=== PATIENT | female | born 1960 | race Caucasian/White ===

== ENCOUNTER 2017-09-28 14:48 | Emergency (ER) | payer MEDICARE, OTHER ==
[2017-09-28 14:57] VITALS: PULSE 70
--- NOTE | 2017-09-28 15:10 | ED ---
Extremity Problem HPI - General Chief complaint: Extremity Problem,Nontraumatic Stated complaint: Lt leg pain Time Seen by Provider: 09/28/17 14:58 Source: patient, RN notes reviewed Mode of arrival: wheelchair Limitations: no limitations - History of Present Illness Initial comments: 56-year-old female presents emergency Department from [place] for evaluation of her left leg wounds and possible cellulitis. Patient states that she has chronic lower extremity swelling bilaterally secondary CHF. Patient states she takes Lasix 40 mg. Patient states she has not have any worsening swelling denies any leg pain. Patient states that she noticed on Wednesday and Wednesday she had some wounds open up on her left lower leg which have now crusted over and stopped draining. She states her was some drainage of clear liquid. Patient denies fever, chills. Patient is a diabetic. - Related Data Home Medications Medication Instructions Recorded Confirmed Amiodarone [Cordarone] 200 mg PO BID 09/28/17 09/28/17 Aspirin EC [Ecotrin Low Dose] 81 mg PO DAILY 09/28/17 09/28/17 Atorvastatin [Lipitor] 40 mg PO HS 09/28/17 09/28/17 Carvedilol [Coreg] 3.125 mg PO BID 09/28/17 09/28/17 Clopidogrel [Plavix] 75 mg PO DAILY 09/28/17 09/28/17 Enalapril [Vasotec] 20 mg PO DAILY 09/28/17 09/28/17 Furosemide [Lasix] 20 mg PO DAILY 09/28/17 09/28/17 Gabapentin [Neurontin] 300 mg PO HS 09/28/17 09/28/17 Pantoprazole Sodium [Protonix] 40 mg PO BID 09/28/17 09/28/17 Previous Rx's Medication Instructions Recorded Cephalexin [Keflex] 500 mg PO Q6HR #40 cap 09/28/17 Allergies Allergy/AdvReac Type Severity Reaction Status Date / Time No Known Allergies Allergy Verified 09/28/17 15:06 Review of Systems ROS Statement: Those systems with pertinent positive or pertinent negative responses have been documented in the HPI. ROS Other: All systems not noted in ROS Statement are negative. Past Medical History Past Medical History: Diabetes Mellitus, Hypertension Additional Past Medical History / Comment(s): neuropathy History of Any Multi-Drug Resistant Organisms: None Reported Past Surgical History: Section, Coronary Bypass/CABG Past Psychological History: Depression Smoking Status: Never smoker Past Alcohol Use History: None Reported Past Drug Use History: None Reported General Exam Limitations: no limitations General appearance: alert, in no apparent distress Head exam: Present: atraumatic, normocephalic, normal inspection Respiratory exam: Present: normal lung sounds bilaterally. Absent: respiratory distress, wheezes, rales, rhonchi, stridor Cardiovascular Exam: Present: regular rate, normal rhythm, normal heart sounds. Absent: systolic murmur, diastolic murmur, rubs, gallop, clicks Extremities exam: Present: other (Bilateral lower extremity there is plus pedal edema noted, pedal pulses equal bilaterally there is some discoloration of bilateral lower extremities and feet patient states is chronic. There are 3 open sores noted on the left anterior lower leg with no active drainage there is mild erythema but no warmth with palpation there is no calf tenderness) Skin exam: Present: warm, dry, intact Course Vital Signs 09/28/17 14:53 Temperature 97.2 F L Pulse Rate 70 Respiratory 18 Rate Blood Pressure 132/58 O2 Sat by Pulse 96 Oximetry Medical Decision Making - Medical Decision Making 56-year-old female presented emergency Department chief complaint of left leg wound, infection. Patient has normal white count there is no major signs of cellulitis. Patient will be started on antibiotics for open wound she is diabetic. She will need follow-up within 48 hours for recheck. Patient does have mild hyperglycemia though she states she did not take any of her insulin since this morning. Patient states she normally would take 6 units for her current blood glucose. Patient we given her insulin last recheck in one hour. She'll be discharged with return parameters - Lab Data Result diagrams: 09/28/17 16:13 09/28/17 16:13 Lab Results 09/28/17 09/28/17 09/28/17 Range/Units 16:13 16:13 16:13 WBC 8.0 (3.8-10.6) k/uL RBC 3.54 L (3.80-5.40) m/uL Hgb 10.1 L (11.4-16.0) gm/dL Hct 33.6 L (34.0-46.0) % MCV 95.0 (80.0-100.0) fL MCH 28.6 (25.0-35.0) pg MCHC 30.1 L (31.0-37.0) g/dL RDW 16.2 H (11.5-15.5) % Plt Count 247 (150-450) k/uL Neutrophils % 77 % Lymphocytes % 13 % Monocytes % 5 % Eosinophils % 3 % Basophils % 1 % Neutrophils # 6.2 (1.3-7.7) k/uL Lymphocytes # 1.0 (1.0-4.8) k/uL Monocytes # 0.4 (0-1.0) k/uL Eosinophils # 0.2 (0-0.7) k/uL Basophils # 0.1 (0-0.2) k/uL Hypochromasia Moderate Anisocytosis Slight Sodium 137 (137-145) mmol/L Potassium 4.6 (3.5-5.1) mmol/L Chloride 100 (98-107) mmol/L Carbon Dioxide 28 (22-30) mmol/L Anion Gap 9 mmol/L BUN 49 H (7-17) mg/dL Creatinine 1.70 H (0.52-1.04) mg/dL Est GFR (MDRD) Af Amer 38 (>60 ml/min/1.73 sqM) Est GFR (MDRD) Non-Af 31 (>60 ml/min/1.73 sqM) Glucose 385 H (74-99) mg/dL Calcium 8.8 (8.4-10.2) mg/dL NT-Pro-B Natriuret Pep 1520 pg/mL Disposition Clinical Impression: Leg wound, left, Left leg cellulitis Disposition: HOME SELF-CARE Condition: Stable Instructions: Cellulitis (ED) Additional Instructions: Please return to the Emergency Department if symptoms worsen or any other concerns. Prescriptions: Cephalexin [Keflex] 500 mg PO Q6HR #40 cap Referrals: Yoni Rollins MD [Primary Care Provider] - 1-2 days Time of Disposition: 17:01
--- NOTE | 2017-09-28 16:02 | XR ---
EXAMINATION TYPE: XR tibia fibula LT DATE OF EXAM: 09/28/2017 COMPARISON: NONE HISTORY: Wound lower extremity TECHNIQUE: Two views are submitted. FINDINGS: The osseous structures are intact. There is severe arthropathy involving the knee joint. Soft tissue edema noted. Diffuse osteopenia is seen. Calcaneal spur noted. IMPRESSION: 1. No acute osseous abnormality.
[2017-09-28 16:34] LABS: Anisocytosis Slight; Basophils # (A) 0.1 k/uL (0-0.2); Basophils % (A) 1 %; CH 29.1; CHCM 30.8; Eosinophils # (A) 0.2 k/uL (0-0.7); Eosinophils % (A) 3 %; HCT 33.6 % (34.0-46.0); HGB 10.1 gm/dL (11.4-16.0); Hypochromasia Moderate; Luc # (Auto) 0.07; Luc % (Auto) 1; Lymphocytes % (A) 13 %; MCH 28.6 pg (25.0-35.0); MCHC 30.1 g/dL (31.0-37.0); Mean Platelet Volume 7.7; Monocytes # (A) 0.4 k/uL (0-1.0); Monocytes % (A) 5 %; Neutrophils # (A) 6.2 k/uL (1.3-7.7); Neutrophils % (A) 77 %; RBC 3.54 m/uL (3.80-5.40); RDW 16.2 % (11.5-15.5); WBC (Perox) 8.84
[2017-09-28 16:41] LABS: Calcium 8.8 mg/dL (8.4-10.2); Potassium 4.6 mmol/L (3.5-5.1)
[2017-09-28] MEDS ORDERED: CEPHALEXIN 500 MG CAP PO STA (16:58)
[2017-09-28] MEDS ORDERED: INSULIN ASPART 100 UNIT/ML 1 ML 10 ML VIAL SQ ONE (16:58)
[2017-09-28 17:40] VITALS: BP 132/56; RESP 20; TEMP 97.3
== END 2017-09-28 17:20 | disposition home or self-care (01) ==
LOC: EC 14:48
DX: S81.802A Unspecified open wound, left lower leg, initial encounter (principal); L03.116 Cellulitis of left lower limb; E11.65 Type 2 diabetes mellitus with hyperglycemia; F32.9 Major depressive disorder, single episode, unspecified; I11.0 Hypertensive heart disease with heart failure; I50.9 Heart failure, unspecified; Z79.02 Long term (current) use of antithrombotics/antiplatelets; Z79.82 Long term (current) use of aspirin; Z79.899 Other long term (current) drug therapy
CPT/HCPCS: 36415; 80048; 83880; 85025; 99283

== ENCOUNTER 2018-02-18 16:52 | Inpatient (IN) | payer MEDICARE, OTHER ==
[2018-02-18] MEDS ORDERED: VANCOMYCIN IV PER PHARMACY 1 EACH MISC MISCELLANE PRN (17:21)
--- NOTE | 2018-02-18 17:21 | ED ---
General Adult HPI - General Chief complaint: Extremity Problem,Nontraumatic Stated complaint: Lt leg swollen Time Seen by Provider: 02/18/18 17:00 Source: patient, EMS, RN notes reviewed Mode of arrival: EMS Limitations: no limitations - History of Present Illness Initial comments: Patient 57-year-old female presenting to the emergency room today with a chief complaint of increased redness and swelling to left lower extremity. She does admit to a history of cellulitis. States she's been treated for both right and left lower extremities. She does admit this been increased swelling some redness. She states her home nurse came out to the house today and advised come here to the emergency room to be admitted for IV antibiotics. Patient states she is currently not on any antibiotics at this time most recently finished up antibiotics approximately 10 days ago. This to pain to the area. Denies any other complaints or symptoms. Patient denies any recent fever, chills , shortness of breath, chest pain, back pain, abdominal pain, nausea or vomiting , numbness or tingling, dysuria or hematuria, constipation or diarrhea, headaches or visual changes, or any other complaints. - Related Data Home Medications Medication Instructions Recorded Confirmed Aspirin EC [Ecotrin Low Dose] 81 mg PO DAILY 09/28/17 02/18/18 Clopidogrel [Plavix] 75 mg PO DAILY 09/28/17 02/18/18 Gabapentin [Neurontin] 300 mg PO TID 09/28/17 02/18/18 Albuterol Sulfate [Proair Hfa] 2 puff INHALATION RT-QID 02/18/18 02/18/18 Amiodarone [Cordarone] 400 mg PO DAILY 02/18/18 02/18/18 Atorvastatin [Lipitor] 20 mg PO HS 02/18/18 02/18/18 Carvedilol [Coreg] 6.25 mg PO BID 02/18/18 02/18/18 Enalapril [Vasotec] 10 mg PO DAILY 02/18/18 02/18/18 Ferrous Sulfate [Feosol] 325 mg PO BID 02/18/18 02/18/18 Furosemide [Lasix] 20 mg PO QAM 02/18/18 02/18/18 Insulin Aspart [NovoLOG Flexpen] 10 units SQ TID 02/18/18 02/18/18 Insulin Detemir [Levemir Flextouch] 40 units SQ HS 02/18/18 02/18/18 traMADol HCL [Ultram] 50 mg PO TID 02/18/18 02/18/18 Allergies Allergy/AdvReac Type Severity Reaction Status Date / Time No Known Allergies Allergy Verified 02/18/18 17:16 Review of Systems ROS Statement: Those systems with pertinent positive or pertinent negative responses have been documented in the HPI. ROS Other: All systems not noted in ROS Statement are negative. Past Medical History Past Medical History: Diabetes Mellitus, GERD/Reflux, Hyperlipidemia, Hypertension, Myocardial Infarction (NM), Rheumatoid Arthritis (RA) Additional Past Medical History / Comment(s): neuropathy,edentulous, cellulitis lt leg,cataracats, past uterine cysts, "gallstones", chronic back pain.. "i've had a gaby for this past year on shoulders,bra line and lt leg". Last Myocardial Infarction Date:: 2014 History of Any Multi-Drug Resistant Organisms: ESBL Date of last positivie culture/infection: 10/13/17 MDRO Source:: ESBL URINE Past Surgical History: Appendectomy, Section, Coronary Bypass/CABG Additional Past Surgical History / Comment(s): d&c,, x2, 2 vessel cabg ,?uterine ablation Past Anesthesia/Blood Transfusion Reactions: No Reported Reaction Additional Past Anesthesia/Blood Transfusion Reaction / Comment(s): clausterphobia Past Psychological History: Depression Smoking Status: Former smoker Past Alcohol Use History: None Reported Past Drug Use History: None Reported - Past Family History Mother Additional Family Medical History / Comment(s): anuerysm Father Family Medical History: Myocardial Infarction (NM) Sister(s) Additional Family Medical History / Comment(s): one sister had "hole in her heart" and a kidney transplant and another sister had ms. General Exam - General Exam Comments Initial Comments: General: The patient is awake and alert, in no distress, and does not appear acutely ill. Eye: Pupils are equal, round and reactive to light, extra-ocular movements are intact. No nystagmus. There is normal conjunctiva bilaterally. No signs of icterus. Ears, nose, mouth and throat: There are moist mucous membranes and no oral lesions. Neck: The neck is supple, there is no tenderness or JVD. Cardiovascular: There is a regular rate and rhythm. No murmur, rub or gallop is appreciated. Respiratory: Lungs are clear to auscultation, respirations are non-labored, breath sounds are equal. No wheezes, stridor, rales, or rhonchi. Musculoskeletal: Normal ROM, no tenderness. Strength 5/5. Sensation intact. Pulses equal bilaterally 2+. Neurological: A&O x 3. CN II-XII intact, There are no obvious motor or sensory deficits. Coordination appears grossly intact. Speech is normal. Skin: Redness or erythema to the lower extremities. Increased swelling to the left lower extremity with 2+ pitting. Psychiatric: Cooperative, appropriate mood & affect, normal judgment. Limitations: no limitations Course Vital Signs 02/18/18 16:55 Temperature 96.8 F L Pulse Rate 55 L Respiratory 18 Rate Blood Pressure 150/68 O2 Sat by Pulse 96 Oximetry Medical Decision Making - Medical Decision Making Patient reexamined at the Center no signs of distress. Patient does have increased redness swelling to the left lower extremity. She does admit that the swelling or redness is increased over the last few days. Currently not on any antibiotic. Patient's does have some pitting edema. Patient does takes Lasix 20 mg daily. His x-rays negative. Ultrasound negative for any evidence of DVT. Patient's BNP greater than 2000. Patient has been sent to the emergency room for admission for cellulitis. Started on vancomycin. Patient's labs reviewed shows kidney function is chronic. Patient will be admitted to the hospital to antibiotics. - Lab Data Result diagrams: 02/18/18 17:10 02/18/18 17:10 Lab Results 02/18/18 02/18/18 02/18/18 Range/Units 17:10 17:10 17:10 WBC 7.2 (3.8-10.6) k/uL RBC 3.51 L (3.80-5.40) m/uL Hgb 9.7 L (11.4-16.0) gm/dL Hct 30.9 L (34.0-46.0) % MCV 88.2 (80.0-100.0) fL MCH 27.7 (25.0-35.0) pg MCHC 31.4 (31.0-37.0) g/dL RDW 17.6 H (11.5-15.5) % Plt Count 217 (150-450) k/uL Neutrophils % 74 % Lymphocytes % 15 % Monocytes % 6 % Eosinophils % 4 % Basophils % 1 % Neutrophils # 5.3 (1.3-7.7) k/uL Lymphocytes # 1.0 (1.0-4.8) k/uL Monocytes # 0.4 (0-1.0) k/uL Eosinophils # 0.3 (0-0.7) k/uL Basophils # 0.0 (0-0.2) k/uL Hypochromasia Slight Anisocytosis Slight Sodium 145 (137-145) mmol/L Potassium 4.6 (3.5-5.1) mmol/L Chloride 105 (98-107) mmol/L Carbon Dioxide 26 (22-30) mmol/L Anion Gap 14 mmol/L BUN 61 H (7-17) mg/dL Creatinine 1.77 H (0.52-1.04) mg/dL Est GFR (CKD-EPI)AfAm 36 (>60 ml/min/1.73 sqM) Est GFR (CKD-EPI)NonAf 31 (>60 ml/min/1.73 sqM) Glucose 66 L (74-99) mg/dL Calcium 8.9 (8.4-10.2) mg/dL Total Bilirubin 0.5 (0.2-1.3) mg/dL AST 25 (14-36) U/L ALT 36 (9-52) U/L Alkaline Phosphatase 89 (38-126) U/L NT-Pro-B Natriuret Pep 2380 pg/mL Total Protein 6.7 (6.3-8.2) g/dL Albumin 3.9 (3.5-5.0) g/dL Disposition Clinical Impression: Cellulitis Disposition: ADMITTED IP TO THIS HOSP Condition: Stable Is patient prescribed a controlled substance at d/c from ED?: No Referrals: Arnol Santiago MD [Primary Care Provider] - 1-2 days Time of Disposition: 19:15
[2018-02-18 17:26] LABS: Anisocytosis Slight; Basophils % (A) 1 %; Eosinophils # (A) 0.3 k/uL (0-0.7); Eosinophils % (A) 4 %; HCT 30.9 % (34.0-46.0); HGB 9.7 gm/dL (11.4-16.0); Hypochromasia Slight; Lymphocytes % (A) 15 %; MCH 27.7 pg (25.0-35.0); MCHC 31.4 g/dL (31.0-37.0); MCV 88.2 fL (80.0-100.0); Mean Platelet Volume 7.1; Monocytes # (A) 0.4 k/uL (0-1.0); Monocytes % (A) 6 %; Neutrophils # (A) 5.3 k/uL (1.3-7.7); Neutrophils % (A) 74 %; Platelet Count 217 k/uL (150-450); RBC 3.51 m/uL (3.80-5.40); RDW 17.6 % (11.5-15.5); WBC 7.2 k/uL (3.8-10.6)
[2018-02-18 17:39] LABS: Albumin 3.9 g/dL (3.5-5.0); Calcium 8.9 mg/dL (8.4-10.2); Potassium 4.6 mmol/L (3.5-5.1); Total Bilirubin 0.5 mg/dL (0.2-1.3); Total Protein 6.7 g/dL (6.3-8.2)
[2018-02-18] MEDS ORDERED: VANCOMYCIN 2,500 MG in SODIUM CHLORIDE 0.9% 500 ML IVPB ONE (18:00)
--- NOTE | 2018-02-18 18:06 | US ---
EXAMINATION TYPE: US venous doppler duplex LE LT DATE OF EXAM: 02/18/2018 5:52 PM COMPARISON: NONE CLINICAL HISTORY: Pain. Left leg swelling and skin redness to bilateral lower legs, Left > Right, x 1 day SIDE PERFORMED: Left; US exam is technically limited by large body of 300lbs, Ht5'4". TECHNIQUE: The lower extremity deep venous system is examined utilizing real time linear array sonog yaakov with graded compression, doppler sonography and color-flow sonography. VESSELS IMAGED: Common Femoral Vein Deep Femoral Vein Greater Saphenous Vein * Femoral Vein Popliteal Vein Small Saphenous Vein * Left Leg: Negative for DVT as able to assess large leg. IMPRESSION: No evidence of deep venous thrombosis in the left leg.
--- NOTE | 2018-02-18 18:50 | XR ---
EXAMINATION TYPE: XR chest 2V DATE OF EXAM: 02/18/2018 COMPARISON: October 11, 2017 HISTORY: Leg edema TECHNIQUE: Frontal and lateral views of the chest are obtained. FINDINGS: Heart appears enlarged. There are sternal wires. There is mild to moderate congestion. I s ee no pleural effusion. Bony thorax is intact. IMPRESSION: Cardiomegaly and mild pulmonary congestion. There is no overt heart failure. Pulmonary v ascularity is the same or improved compared to last exam.
[2018-02-18] MEDS ORDERED: ACETAMINOPHEN TAB 325 MG TAB PO PRN (19:16)
[2018-02-18] MEDS ORDERED: NALOXONE 0.4 MG/ML 1 ML VIAL IV PRN (19:16)
[2018-02-18] MEDS ORDERED: FUROSEMIDE 10 MG/ML 4 ML VIAL IV STA (19:19)
[2018-02-18 19:24] LABS: Appearance,Urine Clear (Clear); Bilirubin,Urine Negative (Negative); Blood,Urine Negative (Negative); Color,Urine Light Yellow; Glucose,Urine (UA) Negative (Negative); Ketones,Urine Negative (Negative); Leukocyte Esterase,Urine Negative (Negative); Nitrite,Urine Negative (Negative); Protein,Urine Negative (Negative); Specific Gravity,Urine 1.006 (1.001-1.035); Urobilinogen,Urine <2.0 mg/dL (<2.0)
[2018-02-18 19:31] LABS: Glucose,Whole Blood 57 mg/dL (75-99)
[2018-02-18 20:20] LABS: Glucose,Whole Blood 90 mg/dL (75-99)
[2018-02-18 21:27] LABS: Glucose,Whole Blood 114 mg/dL (75-99)
[2018-02-18] MEDS: INSULIN ASPART 100 UNIT/ML 1 ML 10 ML VIAL SQ SCH (21:29)
[2018-02-18] MEDS: ATORVASTATIN 20 MG TAB PO SCH (22:35)
[2018-02-18] MEDS: FERROUS SULFATE 325 MG TAB PO SCH (22:37)
[2018-02-18] MEDS: CARVEDILOL 6.25 MG TAB PO SCH (22:37)
[2018-02-18] MEDS: GABAPENTIN 300 MG CAP PO SCH (22:38)
[2018-02-18] MEDS: traMADol 50 MG TAB PO SCH (22:38)
[2018-02-18] MEDS: ALBUTEROL NEBULIZED 2.5 MG/3 ML INHALATION SCH (23:36)
[2018-02-19 01:53] LABS: Glucose,Whole Blood 194 mg/dL (75-99)
[2018-02-19] MEDS ORDERED: ALBUTEROL NEBULIZED 2.5 MG/3 ML INHALATION PRN (04:03)
[2018-02-19 06:51] LABS: Glucose,Whole Blood 170 mg/dL (75-99)
[2018-02-19] MEDS: FERROUS SULFATE 325 MG TAB PO SCH ×2 (07:53→20:47)
[2018-02-19] MEDS: CLOPIDOGREL 75 MG TAB PO SCH (07:53)
[2018-02-19] MEDS: CARVEDILOL 6.25 MG TAB PO SCH ×2 (07:53→17:18)
[2018-02-19] MEDS: traMADol 50 MG TAB PO SCH ×3 (07:53→20:44)
[2018-02-19] MEDS: INSULIN ASPART 100 UNIT/ML 1 ML 10 ML VIAL SQ SCH ×4 (07:53→20:45)
[2018-02-19] MEDS: GABAPENTIN 300 MG CAP PO SCH ×3 (07:53→23:11)
[2018-02-19] MEDS: ASPIRIN 81 MG PO SCH (07:53)
[2018-02-19] MEDS: LISINOPRIL 20 MG TAB PO SCH (07:54)
[2018-02-19] MEDS: ALBUTEROL NEBULIZED 2.5 MG/3 ML INHALATION SCH ×4 (08:03→20:14)
[2018-02-19 08:14] LABS: Anisocytosis Slight; Basophils % (A) 1 %; Eosinophils # (A) 0.2 k/uL (0-0.7); Eosinophils % (A) 4 %; HCT 29.9 % (34.0-46.0); HGB 8.9 gm/dL (11.4-16.0); Hypochromasia Marked; Lymphocytes # (A) 0.7 k/uL (1.0-4.8); Lymphocytes % (A) 11 %; MCHC 29.7 g/dL (31.0-37.0); MCV 91.1 fL (80.0-100.0); Mean Platelet Volume 8.5; Monocytes # (A) 0.4 k/uL (0-1.0); Monocytes % (A) 7 %; Neutrophils # (A) 4.8 k/uL (1.3-7.7); Neutrophils % (A) 77 %; Platelet Count 188 k/uL (150-450); RBC 3.28 m/uL (3.80-5.40); RDW 18.2 % (11.5-15.5); WBC 6.3 k/uL (3.8-10.6)
[2018-02-19 08:26] LABS: Albumin 3.6 g/dL (3.5-5.0); Calcium 8.6 mg/dL (8.4-10.2); Total Bilirubin 0.5 mg/dL (0.2-1.3); Total Protein 6.2 g/dL (6.3-8.2)
[2018-02-19] MEDS ORDERED: AMIODARONE 200 MG TAB PO SCH (09:00)
[2018-02-19 12:49] LABS: Glucose,Whole Blood 180 mg/dL (75-99)
[2018-02-19] MEDS ORDERED: MELATONIN 3 MG TABLET PO PRN (15:34)
[2018-02-19] MEDS ORDERED: CALCIUM CARBONATE 500 MG CHEWABLE PO PRN (15:34)
[2018-02-19] MEDS ORDERED: ALPRAZolam 0.25 MG TAB PO PRN (15:34)
[2018-02-19] MEDS ORDERED: ONDANSETRON 4 MG/2 ML VIAL IVP PRN (15:34)
[2018-02-19] MEDS ORDERED: VANCOMYCIN 2,250 MG in SODIUM CHLORIDE 0.9% 500 ML IVPB SCH (16:00)
[2018-02-19 16:43] LABS: Glucose,Whole Blood 179 mg/dL (75-99)
[2018-02-19] MEDS: CLINDAMYCIN 600 MG in DEXTROSE 5% IN WATER 50 ML IVPB SCH ×4 (17:14→23:11)
--- NOTE | 2018-02-19 18:07 | HP ---
HISTORY AND PHYSICAL DATE OF SERVICE: 02/19/2018 PRESENT COMPLAINT: Bilateral lower extremity redness. HISTORY OF PRESENTING COMPLAINT: This is a pleasant 57-year-old patient followed by visiting physician Dr. Santiago. Chronic stable medical conditions include congestive heart failure from diastolic dysfunction, diabetes, chronic kidney disease, GERD, hypertension, hyperlipidemia, rheumatoid arthritis, anxiety, peripheral neuropathy. The patient presents with worsening redness in both lower extremities, some breakdown of skin. There is edema, not much pain. Patient has numbness primarily in the left leg. The patient had veins transposed from the left lower extremity prior. Shortness of breath is more at the baseline. REVIEW OF SYSTEMS: CONSTITUTIONAL: Tired. HEENT: None. RESPIRATORY: None. CARDIOVASCULAR: None. GASTROINTESTINAL: Heartburn. GENITOURINARY: None. MUSCULOSKELETAL: Some pain in the joints. DERMATOLOGICAL: As above. HEMATOLOGICAL: None. LYMPHATICS: None. PSYCHIATRY: None. NEUROLOGICAL: Numbness in both the feet, more so on the left leg. PAST MEDICAL HISTORY: Congestive heart failure from diastolic dysfunction, diabetes, chronic kidney disease, GERD, hypertension, hyperlipidemia, rheumatoid arthritis, anxiety, peripheral neuropathy, depression, chronic back pain. PAST SURGICAL HISTORY: Appendectomy, , coronary artery bypass. PAST PSYCHIATRIC HISTORY: Depression. SOCIAL HISTORY: The patient lives at [facility], is a , uses a walker and wheelchair for longer distances. The patient smoked for 25 years, 3 packs a day, stopped 4 years ago. Stopped drinking alcohol in 1990. FAMILY HISTORY: Myocardial infarction and aneurysm. HOME MEDICATIONS: 1. Ultram 50 mg p.o. t.i.d. 2. NovoLog FlexPen 10 units subcu t.i.d. 3. Ferrous sulfate 325 p.o. b.i.d. 4. Cordarone 400 mg p.o. daily. 5. ProAir 2 puffs q.i.d. 6. Vasotec 10 mg p.o. daily. 7. Plavix 75 mg p.o. daily. 8. Coreg 6.25 p.o. b.i.d. 9. Lipitor 20 mg q.h.s. 10.Aspirin 81 mg p.o. daily. 11.Levemir 40 units subcu q.h.s. 12.Neurontin 300 mg p.o. t.i.d. 13.Lasix 20 mg p.o. daily. ALLERGIES: None. EXAMINATION: VITAL SIGNS: On presentation. temperature 96.8, pulse 55, respirations 18, blood pressure 155/68, pulse ox 96% on room air. GENERAL APPEARANCE: Well built BMI 51.5. Sitting up, tired-appearing. EYES: Pupils equal. Conjunctivae normal. HEENT: External appearance of nose and ears normal. Oral cavity normal. NECK: JVD not raised. Mass not palpable. RESPIRATORY: Effort normal. LUNGS: Distant breath sounds. CARDIOVASCULAR: Heart sounds muffled, edema present. ABDOMEN: Distended, soft. Liver and spleen not palpable. LYMPHATIC: No lymph node palpable in neck or axillae. PSYCHIATRY: Alert and oriented x3. Mood normal. EXTREMITIES: The patient has redness to below the knees down to the foot, some superficial breakdown and skin edema. Decreased sensation, especially on the left leg. INVESTIGATIONS: White count 6.3, hemoglobin 8.9, potassium 5, BUN 60, creatinine 1.93. ASSESSMENT: 1. Acute bilateral lower extremity cellulitis in a patient with superficial breakdown of skin from venous insufficiency. 2. Bilateral venous insufficiency from prior vein stripping. 3. Morbid obesity, BMI 51.5. 4. Chronic congestive heart failure from diastolic dysfunction. Ejection fraction not known. 5. Diabetes mellitus type 2, chronically on insulin. 6. Chronic kidney disease, probably from hypertensive nephrosclerosis and diabetic nephropathy. 7. Gastroesophageal reflux disease. 8. Essential hypertension. 9. Hyperlipidemia. 10.Rheumatoid arthritis. 11.Depression, anxiety, not otherwise specified. 12.Peripheral neuropathy from diabetes. PLAN: Will put the patient on clindamycin IV, use Silvadene cream with Kerlix and Yusuf wrap. Will discontinue the IV Lasix. Care was discussed with the patient. Questions were answered. MMODL / IJN: [id number] /
[2018-02-19 20:39] LABS: Glucose,Whole Blood 165 mg/dL (75-99)
[2018-02-19] MEDS: ATORVASTATIN 20 MG TAB PO SCH (20:46)
[2018-02-20 07:06] LABS: Glucose,Whole Blood 171 mg/dL (75-99)
[2018-02-20] MEDS: FERROUS SULFATE 325 MG TAB PO SCH ×2 (07:32→21:10)
[2018-02-20] MEDS: CLINDAMYCIN 600 MG in DEXTROSE 5% IN WATER 50 ML IVPB SCH ×6 (07:32→22:44)
[2018-02-20] MEDS: CARVEDILOL 6.25 MG TAB PO SCH ×2 (07:32→17:28)
[2018-02-20] MEDS: LISINOPRIL 20 MG TAB PO SCH (07:32)
[2018-02-20] MEDS: AMIODARONE 200 MG TAB PO SCH (07:32)
[2018-02-20] MEDS: GABAPENTIN 300 MG CAP PO SCH ×3 (07:33→21:10)
[2018-02-20] MEDS: INSULIN ASPART 100 UNIT/ML 1 ML 10 ML VIAL SQ SCH ×4 (07:33→21:11)
[2018-02-20] MEDS: CLOPIDOGREL 75 MG TAB PO SCH (07:33)
[2018-02-20] MEDS: ASPIRIN 81 MG PO SCH (07:33)
[2018-02-20] MEDS: traMADol 50 MG TAB PO SCH ×3 (07:40→21:10)
[2018-02-20] MEDS: SILVER sulfADIAZINE Cream 400 GM 1 APPLIC APPLIC TOPICAL SCH ×2 (07:49→21:12)
[2018-02-20 08:08] LABS: Calcium 8.5 mg/dL (8.4-10.2); Potassium 4.7 mmol/L (3.5-5.1)
[2018-02-20] MEDS: ALBUTEROL NEBULIZED 2.5 MG/3 ML INHALATION SCH ×4 (08:58→20:21)
[2018-02-20 12:13] LABS: Glucose,Whole Blood 184 mg/dL (75-99)
[2018-02-20] MEDS ORDERED: FUROSEMIDE 250 MG in SODIUM CHLORIDE 0.9% 225 ML IVP SCH (16:45)
[2018-02-20 17:19] LABS: Glucose,Whole Blood 230 mg/dL (75-99)
--- NOTE | 2018-02-20 17:29 | US ---
EXAMINATION TYPE: US kidneys/renal and bladder DATE OF EXAM: 02/20/2018 COMPARISON: NONE CLINICAL HISTORY: renal failure. Extremely difficult and limited exam due to patient's body habitus EXAM MEASUREMENTS: Right Kidney: 9.7 x 4.8 x 4.0 cm Left Kidney: 9.2 x 4.9 x 3.9 cm Right Kidney: No hydronephrosis , nephrolithiasis or masses visualized on this limited exam Left Kidney: No hydronephrosis or nephrolithiasis or masses visualized on this limited exam Bladder: wnl Bilateral Jets seen: No There is no evidence for hydronephrosis at this point in time. No nephrolithiasis is seen. No sonia s are identified. IMPRESSION: Limited exam due to patient body habitus however there is no gross evidence of hydronephrosis or neph rolithiasis.
[2018-02-20 20:49] LABS: Glucose,Whole Blood 208 mg/dL (75-99)
[2018-02-20] MEDS: ATORVASTATIN 20 MG TAB PO SCH (21:10)
--- NOTE | 2018-02-20 22:29 | PN ---
PROGRESS NOTE DATE OF SERVICE: 02/20/18 PRESENTING COMPLAINT: Lower extremity cellulitis. INTERVAL HISTORY: This patient admitted with bilateral lower extremity cellulitis. The patient refused earlier to get the Kerlix and Yusuf wrap. Swelling is still present. Redness is still present. Patient getting IV clindamycin. The patient is tolerating a diet. REVIEW OF SYSTEMS: Done for constitutional, cardiovascular, GI, pulmonary; relevant findings as above. CURRENT MEDICATIONS: Reviewed that include IV clindamycin. EXAMINATION: Temp 97.5, pulse 59, respiratory 20, blood pressure 132/63, pulse ox 98% on room air. GENERAL APPEARANCE: Sitting up. Eyes: Pupils equal. Conjunctivae normal. HEENT: External appearance of nose and ears normal. Oral cavity normal. Neck JVD unable to assess. Mass not palpable. Respiratory effort: Lungs fair entry. Cardiovascular 1st and 2nd sounds normal. Edema present. Abdomen distended, soft. Liver and spleen not palpable. Psychiatry: Alert and oriented x3. Mood and affect normal. Patient is comfortable. Dermatological: Cellulitis of both the lower extremity below the knees with no improvement. INVESTIGATIONS: Potassium 4.7, BUN 63, creatinine 2.8. Accu-Cheks are noted. ASSESSMENT: 1. Acute bilateral lower extremity cellulitis in a patient with superficial breakdown of skin from venous insufficiency slow to respond. 2. Bilateral venous insufficiency from prior vein stripping. 3. Morbid obesity BMI 51.5. 4. Chronic congestive heart failure from diastolic dysfunction. Ejection fraction not known. 5. Diabetes mellitus type 2, chronically on insulin. 6. Chronic kidney disease, probably from hypertensive nephrosclerosis and diabetic nephropathy. 7. Acute renal failure. The patient's UA is rather benign appearing. The only renal offensive drugs is patient that is YUSUF inhibitor that the patient has been on chronically, but creatinine is bumped up. 8. Gastroesophageal reflux disease. 9. Essential hypertension. 10.Hyperlipidemia. 11.Rheumatoid arthritis. 12.Depression and anxiety not otherwise specified. 13.Peripheral neuropathy from diabetes. PLAN: Patient's UA is rather benign appearing. We will order renal ultrasound. We will hold off the YUSUF inhibitor for right now. Get a nephrology opinion. Continue with clindamycin. We will give the patient 12 hours of IV Lasix drip to see the improvement for the same. MMODL / IJN: [id number] /
[2018-02-20] MEDS: INSULIN DETEMIR 100 UNIT/ML 10 ML VIAL SQ SCH (22:39)
[2018-02-21 07:22] LABS: Glucose,Whole Blood 158 mg/dL (75-99)
[2018-02-21] MEDS: INSULIN ASPART 100 UNIT/ML 1 ML 10 ML VIAL SQ SCH ×4 (07:36→21:35)
[2018-02-21] MEDS: traMADol 50 MG TAB PO SCH ×3 (07:36→21:34)
[2018-02-21] MEDS: AMIODARONE 200 MG TAB PO SCH (07:37)
[2018-02-21] MEDS: CARVEDILOL 6.25 MG TAB PO SCH ×2 (07:37→17:38)
[2018-02-21] MEDS: CLOPIDOGREL 75 MG TAB PO SCH (07:37)
[2018-02-21] MEDS: CLINDAMYCIN 600 MG in DEXTROSE 5% IN WATER 50 ML IVPB SCH ×6 (07:37→23:50)
[2018-02-21] MEDS: ASPIRIN 81 MG PO SCH (07:38)
[2018-02-21] MEDS: GABAPENTIN 300 MG CAP PO SCH ×3 (07:38→21:34)
[2018-02-21] MEDS: FERROUS SULFATE 325 MG TAB PO SCH ×2 (07:38→21:35)
[2018-02-21] MEDS: SILVER sulfADIAZINE Cream 400 GM 1 APPLIC APPLIC TOPICAL SCH ×2 (07:41→21:35)
[2018-02-21 08:23] LABS: Calcium 8.6 mg/dL (8.4-10.2); Potassium 5.1 mmol/L (3.5-5.1)
[2018-02-21] MEDS: ALBUTEROL NEBULIZED 2.5 MG/3 ML INHALATION SCH ×4 (08:53→20:18)
[2018-02-21 11:31] LABS: Hemoglobin A1C 6.4 % (4.0-6.0)
[2018-02-21 11:35] LABS: Glucose,Whole Blood 210 mg/dL (75-99)
--- NOTE | 2018-02-21 12:34 | CDI ---
Last Revision, September 2017 Documentation Clarification Form Date: February 21, 2018 From: Nicole Horn RN Admit Date: 02/20/2018 2:13:00 PM Patient Name: Grecia Mendez Visit Number: [id number] ATTENTION: The Clinical Documentation Specialists (CDI) and [facility] Coding Staff appreciate your assistance in clarifying documentation. Please respond to the clarification below the line at the bottom and electronically sign. The CDI & [facility] Coding staff will review the response and follow-up if needed. Please note: Queries are made part of the Legal Health Record. If you have any questions, please contact the author of this message via ITS. Dr. Bobby Quinones, History/Risk Factors: CHF diastolic, DM, CKD, GERD, HTN, hyperlipidemia, rheumatoid arthritis, anxiety , peripheral neuropathy Present with Cellulitis Clinical Indicators: Current BUN 70, CR 2.45, GFR 21 On admission: BUN 61,CR 1.77, GFR 31 Treatment: Monitor labs NO IV fluids patient has a history of CHF Pt. is receiving IV Lasix In order to capture the severity of condition, please clarify if the condition signifies: CKD Stage 3 (GFR 30-59) CKD Stage 4 (GFR 15-29) CKD Stage 5 (GFR <15) Other, please specify Unable to determine Please continue to document in your progress notes and discharge summary in order to capture severity of illness and risk of mortality. Include clinical findings that support your diagnosis. see chart for documentation MTDD
[2018-02-21 17:31] LABS: Glucose,Whole Blood 321 mg/dL (75-99)
[2018-02-21 21:01] LABS: Glucose,Whole Blood 141 mg/dL (75-99)
[2018-02-21] MEDS: ATORVASTATIN 20 MG TAB PO SCH (21:34)
[2018-02-21] MEDS: INSULIN DETEMIR 100 UNIT/ML 10 ML VIAL SQ SCH (21:35)
--- NOTE | 2018-02-21 21:39 | CONS ---
CONSULTATION REASON FOR CONSULT: Renal failure. HISTORY OF PRESENT ILLNESS: The patient is a 57-year-old female with history of hypertension, coronary artery disease, UT, chronic kidney disease, and NKF stage III, with baseline creatinine about 1.3-1.6 mg/dL secondary to nephrosclerosis. Her UA shows no evidence of protein. The patient was admitted to the hospital with complaints of increased lower extremity edema and redness with pain as well. The patient denied any fever. No nausea or vomiting. She has been feeling more weak. Denies any chest pains or significant shortness of breath. PAST MEDICAL HISTORY: History of CHF, diastolic dysfunction, type 2 diabetes, gastroesophageal reflux disease, hypertension, hyperlipidemia, rheumatoid arthritis, anxiety, depression, chronic back pain, CKD stage 3 secondary to nephrosclerosis. PAST SURGICAL HISTORY: Appendectomy, , coronary artery bypass surgery. SOCIAL HISTORY: Is significant for patient being a former smoker. No history of drug abuse or alcohol abuse. MEDICATIONS: Prior to admission included Vasotec, Iron, Cordarone, insulin, Ultram, Plavix, Coreg, Lipitor, aspirin, insulin, Neurontin and Lasix. ALLERGIES: None. PHYSICAL EXAMINATION: Patient is currently comfortable, awake. She is not in any acute distress. Blood pressure was 108/70, heart rate of 56 per minute. Patient is afebrile. Examination of the heart S1, S2. Examination of the lungs bilateral breath sounds are heard. Decreased breath sounds at bases. No crackles or wheezing is heard. Abdomen is soft, nontender, obese. Examination lower extremity shows chronic skin changes chronic edema bilaterally. INSTALLATIONS INSPECTOR exam is grossly intact. LABS: Revealed sodium 141, potassium 5.1, BUN 70, serum creatinine 2.45. UA shows no evidence of blood, protein, or cells. Chest x-ray on admission showed mild pulmonary congestion. ASSESSMENT: 1. Acute kidney injury and acute tubular necrosis currently nonoliguric. The patient is maintained on a Lasix drip which is now discontinued. She is not on any nephrotoxic medications. Currently, patient has good urine output. The ultrasound of the bladder and kidneys did not show any evidence of hydronephrosis. 2. Chronic kidney disease stage 3 with baseline creatinine about 1.3-1.6. Lowest at 1.3 in October of 2017 secondary to nephrosclerosis. 3. Volume overload status post Lasix drip. Will maintain patient on IV push Lasix which we can resume tomorrow since Lasix drip was discontinued today. 4. Congestive heart failure, diastolic dysfunction with previous ejection fraction 50- 55% in October of 2016. 5. Cellulitis, bilateral lower extremities, maintained on antibiotics. 6. Rheumatoid arthritis. PLAN: Continue off of Lasix drip. We will switch to IV push Lasix starting in a.m. Continue off of EULA inhibitors. Avoid hypotension. I will add parameters for Coreg. Repeat labs in a.m. Thank you for this consultation. We will continue to follow the patient with you during her hospitalization. Also recommend repeating another echocardiogram this admission. Continue with clindamycin. MMODL / IJN: [id number] /
--- NOTE | 2018-02-22 03:18 | PN ---
PROGRESS NOTE DATE OF SERVICE: February 21, 2018. PRESENTING COMPLAINT: Lower extremity cellulitis, fluid overload. INTERVAL HISTORY: The patient admitted with bilateral lower extremity cellulitis and also had fluid overload. The patient was started on IV Lasix drip yesterday. The patient put out about 1500 mL. Nephrology saw the patient, switched the patient to IV bolus Lasix today. Patient also getting IV clindamycin for cellulitis. Overall feeling better. REVIEW OF SYSTEMS: Done for constitutional, cardiovascular, GI, pulmonary; relevant findings as above. CURRENT MEDICATIONS: Reviewed that include IV clindamycin and Lasix drip was discontinued. Also getting Silvadene. PHYSICAL EXAMINATION: Temperature 97.4, pulse 55, respirations 16, blood pressure 108/70, pulse ox 92% on 2 L. GENERAL APPEARANCE: Sitting up, comfortable. Eyes: Pupils equal, conjunctivae normal. HEENT: External appearance of nose and ears normal. Oral cavity normal. Neck JVD unable to assess. Mass not palpable. Respiratory effort normal. Lungs fair entry. Cardiovascular 1st and 2nd sounds normal. Decreased edema. Abdomen distended, soft. Liver and spleen not palpable. PSYCHIATRY: Alert and oriented x3. Mood and affect normal. Dermatological: Cellulitis both lower extremities below the knee. INVESTIGATIONS: BUN 70, creatinine 2.45. ASSESSMENT: 1. Acute bilateral lower extremity cellulitis and the patient has superficial breakdown of skin from venous insufficiency. 2. Bilateral lower extremity venous insufficiency from prior vein stripping. 3. Morbid obesity BMI 51.5. 4. Chronic congestive heart failure from diastolic dysfunction. Ejection fraction not known. 5. Diabetes mellitus type 2, chronically on insulin. 6. Chronic kidney disease stage 3 from hypertensive nephrosclerosis and diabetic nephropathy. 7. Acute renal failure component. 8. Gastroesophageal reflux disease. 9. Essential hypertension. 10.Hyperlipidemia. 11.Rheumatoid arthritis. 12.Depression/anxiety not otherwise specified. 13.Peripheral neuropathy from diabetes. PLAN: Continue current medication and treatment plan. Repeat patient's electrolytes in the morning. Follow. MMODL / IJN: [id number] /
[2018-02-22 07:11] LABS: Glucose,Whole Blood 114 mg/dL (75-99)
[2018-02-22] MEDS: ALBUTEROL NEBULIZED 2.5 MG/3 ML INHALATION SCH ×4 (07:19→20:30)
[2018-02-22] MEDS: INSULIN ASPART 100 UNIT/ML 1 ML 10 ML VIAL SQ SCH ×4 (07:22→21:05)
[2018-02-22] MEDS: traMADol 50 MG TAB PO SCH ×3 (07:28→21:05)
[2018-02-22] MEDS: CLINDAMYCIN 600 MG in DEXTROSE 5% IN WATER 50 ML IVPB SCH ×6 (07:28→23:56)
[2018-02-22] MEDS: SILVER sulfADIAZINE Cream 400 GM 1 APPLIC APPLIC TOPICAL SCH ×2 (07:29→21:05)
[2018-02-22] MEDS: AMIODARONE 200 MG TAB PO SCH (07:29)
[2018-02-22] MEDS: GABAPENTIN 300 MG CAP PO SCH ×3 (07:29→21:04)
[2018-02-22] MEDS: ASPIRIN 81 MG PO SCH (07:29)
[2018-02-22] MEDS: CLOPIDOGREL 75 MG TAB PO SCH (07:29)
[2018-02-22] MEDS: CARVEDILOL 6.25 MG TAB PO SCH ×2 (07:30→16:51)
[2018-02-22] MEDS: FERROUS SULFATE 325 MG TAB PO SCH ×2 (07:30→21:05)
--- NOTE | 2018-02-22 09:25 | US ---
EXAMINATION TYPE: US venous doppler duplex LE BI DATE OF EXAM: 02/22/2018 8:43 AM COMPARISON: 02/18/2018 CLINICAL HISTORY: r/o dvt. No hx of blood clots. Cellulitis. On aspirin. SIDE PERFORMED: Bilateral TECHNIQUE: The lower extremity deep venous system is examined utilizing real time linear array sonog yaakov with graded compression, doppler sonography and color-flow sonography. VESSELS IMAGED: External Iliac Vein (EIV) Common Femoral Vein Deep Femoral Vein Greater Saphenous Vein * Femoral Vein Popliteal Vein Small Saphenous Vein * Proximal Calf Veins (* superficial vessels) Limited exam due to patient body habitus Right Leg: Negative for acute DVT Left Leg: Negative for acute DVT Grayscale, color doppler, spectral doppler imaging performed of the deep veins of the lower extremiti es. There is normal flow, compressibility, vascular waveforms. IMPRESSION: Somewhat limited exam due to patient body habitus, however there is no gross evidence of deep venous thrombosis within the bilateral lower extremities.
[2018-02-22 11:18] LABS: Calcium 8.8 mg/dL (8.4-10.2); Potassium 5.1 mmol/L (3.5-5.1)
[2018-02-22 12:14] LABS: Glucose,Whole Blood 146 mg/dL (75-99)
[2018-02-22] MEDS: FUROSEMIDE 10 MG/ML 10 ML VIAL IV SCH ×2 (16:50→23:56)
--- NOTE | 2018-02-22 16:55 | PN ---
PROGRESS NOTE Patient is seen for followup for acute kidney injury. She was admitted to the hospital with increased lower extremity edema and cellulitis. She is currently maintained on antibiotics. She is also on a Lasix drip. Patient states her swelling has improved. Serum creatinine is 2.4; it peaked at 2.45 yesterday. Previous creatinine has been as low as 1.3 mg/dL in October of 2017. Patient has been voiding in a bedside commode. On examination today, blood pressure was 142/56, heart rate 53 per minute. She is afebrile. EXAMINATION OF THE HEART: S1, S2. EXAMINATION OF LUNGS: Bilateral breath sounds are heard. ABDOMEN: Soft, morbidly obese. Examination of lower extremities shows bilateral extremities to be wrapped. There are chronic skin changes noted, significant erythema noted bilaterally along with severe edema. 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 Labs show sodium 142, potassium 5.1, BUN 73, serum creatinine 2.4 mg/dL. ASSESSMENT: 1. Acute kidney injury, currently nonoliguric, acute tubular necrosis, somewhat improved. Patient's creatinine is slightly lower. There may be a component of cardiorenal syndrome as well. Her previous ejection fraction was 50% to 55% in October of 2016. We do not have a recent echocardiogram. 2. Chronic kidney disease, stage III, with baseline creatinine about 1.3 to 1.6 mg/dL secondary to nephrosclerosis. 3. Volume overload, currently maintained on Lasix drip. I will switch this to IV push Lasix today. 4. Cellulitis, bilateral lower extremities, maintained on clindamycin. 5. Type 2 diabetes. 6. Morbid obesity. PLAN: Maintain patient on IV Lasix 40 mg q.8 hours. Repeat labs in a.m. She still has significant edema. MMODL / IJN: [id number] /
[2018-02-22 17:04] LABS: Glucose,Whole Blood 205 mg/dL (75-99)
[2018-02-22 20:50] LABS: Glucose,Whole Blood 180 mg/dL (75-99)
[2018-02-22] MEDS: ATORVASTATIN 20 MG TAB PO SCH (21:05)
[2018-02-22] MEDS: INSULIN DETEMIR 100 UNIT/ML 10 ML VIAL SQ SCH (21:05)
--- NOTE | 2018-02-23 00:34 | PN ---
PROGRESS NOTE DATE OF SERVICE: February 22, 2018. PRESENT COMPLAINT: Lower extremity cellulitis, swelling. INTERVAL HISTORY: Patient seen by me yesterday evening. The patient admitted with bilateral lower extremity cellulitis and fluid overload. The patient was given Lasix drip for [address] Walters earlier today. Switched to IV Lasix push. Edema has gone down to a certain degree. Redness is getting better. The patient has been on clindamycin. REVIEW OF SYSTEMS: Done for constitutional, cardiovascular, GI, pulmonary, relevant findings as above. CURRENT MEDICATIONS: Reviewed that include IV clindamycin and IV Lasix 60 mg q.8. EXAMINATION: Temperature 96.6, pulse 53, respiratory rate 16, blood pressure 142/56, pulse ox 98% on room air. General appearance: Sitting up, comfortable. Eyes: Pupils equal. Conjunctivae normal. HEENT: External appearance of nose and ears normal. Oral cavity normal. Neck JVD unable to assess. Mass not palpable. Respiratory effort lungs fair entry. Cardiovascular 1st and 2nd normal. Decreased edema. Abdomen distended, soft. Liver and spleen not palpable. Psychiatry: Alert and oriented times three. Mood and affect normal. Dermatological: Bilateral lower extremity redness is greatly improved. INVESTIGATIONS: BUN 73, creatinine 2.40. Accu-Cheks are noted including 205, 180. ASSESSMENT: 1. Acute bilateral lower extremity cellulitis with superficial breakdown from venous insufficiency with clinical improvement. 2. Bilateral lower extremity venous insufficiency with prior vein stripping. 3. Morbid obesity BMI 51.5. 4. Chronic congestive heart failure from diastolic dysfunction. Ejection fraction not known. 5. Diabetes mellitus type 2, chronically on insulin. 6. Chronic kidney disease stage 3 from hypertensive nephrosclerosis and diabetic nephropathy. 7. Acute renal failure component probably prerenal. 8. Gastroesophageal reflux disease. 9. Essential hypertension. 10.Hyperlipidemia. 11.Rheumatoid arthritis. 12.Depression/anxiety not otherwise specified. 13.Peripheral neuropathy from diabetes. 14.Deep vein thrombosis ruled out. PLAN: Continue with IV Lasix. Per Dr. Walters we will keep patient on IV clindamycin another 24 hours, patient should be able to switched over to p.o. clindamycin. Discharge planning depending on how the patient's renal function and further determination by Dr. Walters. MMODL / IJN: [id number] /
[2018-02-23 07:22] LABS: Glucose,Whole Blood 138 mg/dL (75-99)
[2018-02-23] MEDS: ALBUTEROL NEBULIZED 2.5 MG/3 ML INHALATION SCH ×2 (07:26→11:05)
[2018-02-23 07:40] VITALS: BP 145/69; RESP 16; TEMP 98.1
[2018-02-23] MEDS: CLINDAMYCIN 600 MG in DEXTROSE 5% IN WATER 50 ML IVPB SCH ×2 (07:52)
[2018-02-23] MEDS: INSULIN ASPART 100 UNIT/ML 1 ML 10 ML VIAL SQ SCH ×2 (07:52→13:17)
[2018-02-23] MEDS: FUROSEMIDE 10 MG/ML 10 ML VIAL IV SCH (07:52)
[2018-02-23] MEDS: GABAPENTIN 300 MG CAP PO SCH (07:53)
[2018-02-23] MEDS: FERROUS SULFATE 325 MG TAB PO SCH (07:53)
[2018-02-23] MEDS: AMIODARONE 200 MG TAB PO SCH (07:53)
[2018-02-23] MEDS: CLOPIDOGREL 75 MG TAB PO SCH (07:54)
[2018-02-23] MEDS: ASPIRIN 81 MG PO SCH (07:54)
[2018-02-23] MEDS: SILVER sulfADIAZINE Cream 400 GM 1 APPLIC APPLIC TOPICAL SCH (07:54)
[2018-02-23] MEDS: CARVEDILOL 6.25 MG TAB PO SCH (07:54)
[2018-02-23 08:10] LABS: Calcium 8.8 mg/dL (8.4-10.2); Potassium 4.6 mmol/L (3.5-5.1)
[2018-02-23] MEDS: traMADol 50 MG TAB PO SCH (08:29)
[2018-02-23 11:17] VITALS: PULSE 60
--- NOTE | 2018-02-23 11:37 | P.PN ---
Subjective Patient is seen in follow-up for acute kidney injury on chronic kidney disease. Patient has chronic kidney disease stage III with baseline creatinine in the range of 1.3-1.6. Creatinine peaked at 2.45 this admission and is down to 2.18 today. She is currently maintained on Lasix 60 mg IV 3 times daily. Edema has improved. Admits to good urine output. Hemodynamically stable. Oral intake is good. Vital signs are stable. General: The patient appeared well nourished and normally developed. HEENT: Head exam is unremarkable. Neck is without jugular venous distension. LUNGS: Lungs are clear to auscultation and percussion. Breath sounds decreased. HEART: Rate and Rhythm are regular. First and second heart sounds normal. No murmurs, rubs or gallops. ABDOMEN: Abdominal exam reveals normal bowel sounds. Non-tender and non- distended. No evidence of peritonitis. EXTREMITITES: 1+ edema. No obvious drainage noted. Objective - Vital Signs Vital signs: Vital Signs Temp 98.1 F 02/23/18 07:00 Pulse 60 02/23/18 11:16 Resp 16 02/23/18 07:00 BP 145/69 02/23/18 07:00 Pulse Ox 94 L 02/23/18 07:00 Intake & Output 02/22/18 02/23/18 02/23/18 18:59 06:59 18:59 Intake Total 300 290 Output Total 1200 Balance -900 290 Intake: Intake, IV Titration 50 Amount Clindamycin 600 mg In 50 Dextrose 5% in Water 50 ml @ 103.846 mls/hr IVPB Q8HR [facility] Rx#:[id number] Oral 300 240 Output: Urine 1200 Other: # Voids 2 # Bowel Movements 1 - Labs CBC & Chem 7: 02/19/18 07:57 02/23/18 07:35 Labs: Abnormal Lab Results - Last 24 Hours (Table) 02/22/18 02/22/18 02/22/18 Range/Units 12:11 17:02 20:34 BUN (7-17) mg/dL Creatinine (0.52-1.04) mg/dL Glucose (74-99) mg/dL POC Glucose (mg/dL) 146 H 205 H 180 H (75-99) mg/dL 02/23/18 02/23/18 Range/Units 07:08 07:35 BUN 74 H (7-17) mg/dL Creatinine 2.18 H (0.52-1.04) mg/dL Glucose 121 H (74-99) mg/dL POC Glucose (mg/dL) 138 H (75-99) mg/dL Microbiology - Last 24 Hours (Table) 02/18/18 17:10 Blood Culture - Preliminary Blood No Growth after 96 hours Assessment and Plan Plan: Assessment: 1. Nonoliguric acute kidney injury secondary to ATN secondary to cardiorenal syndrome. Renal function improving with creatinine down to 2.18 today. Urinalysis is benign. No evidence of hydronephrosis noted on renal ultrasound. 2. Chronic kidney disease stage III with baseline creatinine in the range of 1.3-1.6 secondary to nephrosclerosis. 3. Volume overload improving IV Lasix. 4. Lower extremity cellulitis maintained on antibiotics. 5. Diabetes mellitus. 6. Anemia. Rule out iron deficiency. Plan: I will decrease Lasix to 60 mg IV twice daily. Encouraged oral intake. Check iron studies. Avoid nephrotoxic agents and hypotensive episodes. Repeat electrolytes in the morning.
[2018-02-23 12:00] LABS: Glucose,Whole Blood 169 mg/dL (75-99)
[2018-02-23 16:54] LABS: Iron Saturation 8.81 (12.00-45.00)
[2018-02-23] MEDS ORDERED: FUROSEMIDE 10 MG/ML 10 ML VIAL IV SCH (21:00)
== END 2018-02-23 15:57 | disposition home health service (06) | DRG 602 ==
LOC: EC 16:52 → 4MS4W 20:07 → OBSVTOIN 02-20 14:13
PROVIDERS: ADMIT Hospitalist; ATTEND Hospitalist
DX: L03.115 Cellulitis of right lower limb (principal); N17.0 Acute kidney failure with tubular necrosis; I13.0 Hypertensive heart and chronic kidney disease with heart failure and stage 1 through stage 4 chronic kidney disease, or unspecified chronic kidney disease; I50.32 Chronic diastolic (congestive) heart failure; Z68.43 Body mass index [BMI] 50.0-59.9, adult; L03.116 Cellulitis of left lower limb; D64.9 Anemia, unspecified; E11.21 Type 2 diabetes mellitus with diabetic nephropathy; E11.22 Type 2 diabetes mellitus with diabetic chronic kidney disease; E11.42 Type 2 diabetes mellitus with diabetic polyneuropathy; E66.01 Morbid (severe) obesity due to excess calories; E78.5 Hyperlipidemia, unspecified; F32.9 Major depressive disorder, single episode, unspecified; F41.9 Anxiety disorder, unspecified; I25.2 Old myocardial infarction; I87.2 Venous insufficiency (chronic) (peripheral); K21.9 Gastro-esophageal reflux disease without esophagitis; M06.9 Rheumatoid arthritis, unspecified; N18.3 Chronic kidney disease, stage 3 (moderate); Z79.02 Long term (current) use of antithrombotics/antiplatelets; Z79.4 Long term (current) use of insulin; Z79.82 Long term (current) use of aspirin; Z79.899 Other long term (current) drug therapy; Z82.49 Family history of ischemic heart disease and other diseases of the circulatory system; Z87.891 Personal history of nicotine dependence; Z95.1 Presence of aortocoronary bypass graft; M54.9 Dorsalgia, unspecified; G89.29 Other chronic pain
CPT/HCPCS: 36415; 71046; 76770; 80048; 80053; 81003; 82728; 83036; 83540; 83550; 83880; 85025; 87040; 93970; 94640; 94760; 96365; 99285

== ENCOUNTER 2018-03-10 10:48 | Emergency (ER) | payer MEDICARE, OTHER ==
[2018-03-10] MEDS ORDERED: ONDANSETRON 4 MG TAB PO STA (10:51)
[2018-03-10] MEDS ORDERED: SODIUM CHLORIDE 0.9% 500 ML IV STA (10:51)
[2018-03-10 11:03] VITALS: RESP 16
[2018-03-10] MEDS ORDERED: ACETAMINOPHEN TAB 500 MG TAB PO STA (11:14)
[2018-03-10 11:33] LABS: Anisocytosis Slight; Basophils % (A) 0 %; Eosinophils % (A) 0 %; HCT 29.7 % (34.0-46.0); HGB 9.4 gm/dL (11.4-16.0); Hypochromasia Moderate; Lymphocytes # (A) 0.3 k/uL (1.0-4.8); Lymphocytes % (A) 2 %; MCH 28.1 pg (25.0-35.0); MCHC 31.5 g/dL (31.0-37.0); MCV 89.2 fL (80.0-100.0); Mean Platelet Volume 7.5; Monocytes % (A) 7 %; Neutrophils # (A) 12.1 k/uL (1.3-7.7); Neutrophils % (A) 88 %; Platelet Count 191 k/uL (150-450); RBC 3.33 m/uL (3.80-5.40); RDW 17.5 % (11.5-15.5); WBC 13.8 k/uL (3.8-10.6)
[2018-03-10 11:44] LABS: Albumin 3.7 g/dL (3.5-5.0); Calcium 8.5 mg/dL (8.4-10.2); Potassium 4.5 mmol/L (3.5-5.1); Total Bilirubin 0.9 mg/dL (0.2-1.3); Total Protein 6.2 g/dL (6.3-8.2)
[2018-03-10 11:52] LABS: Appearance,Urine Cloudy (Clear); Bacteria,Urine Moderate /hpf; Bilirubin,Urine Negative (Negative); Blood,Urine Small (Negative); Color,Urine Yellow; Glucose,Urine (UA) Negative (Negative); Ketones,Urine Negative (Negative); Leukocyte Esterase,Urine Large (Negative); Nitrite,Urine Negative (Negative); Protein,Urine 2+ (Negative); RBC,Urine 5 /hpf (0-5); Specific Gravity,Urine 1.012 (1.001-1.035); Squamous Epithelial Cell,Urine 2 /hpf (0-4); Urobilinogen,Urine <2.0 mg/dL (<2.0); WBC,Urine 133 /hpf (0-5)
--- NOTE | 2018-03-10 13:30 | ED ---
Nausea/Vomiting/Diarrhea HPI - General Chief complaint: Nausea/Vomiting/Diarrhea Stated complaint: Vomiting Time Seen by Provider: 03/10/18 10:49 Source: patient, EMS Mode of arrival: EMS Limitations: no limitations, physical limitation - History of Present Illness Initial comments: 57-year-old female presenting for evaluation of nausea and vomiting for the last 2 days. She states that she has had urinary frequency during this time with increased frequency however hesitancy. She also states a temperature with a T-max of 10 1F for which she is taking [id number] medications. She states that she has had urinary tract infections before in the past and feels similar to this. She states that she does not have any back pain and does not have systemic arthralgias and myalgias. She was recently treated with antibiotics for lower extremity cellulitis as well which has been progressively improving to her satisfaction. She denies any other symptoms of chest pain, shortness breath, lightheadedness, dizziness, lower extremity weakness or swelling. - Related Data Home Medications Medication Instructions Recorded Confirmed Aspirin EC [Ecotrin Low Dose] 81 mg PO DAILY 09/28/17 03/10/18 Clopidogrel [Plavix] 75 mg PO DAILY 09/28/17 03/10/18 Albuterol Sulfate [Proair Hfa] 2 puff INHALATION RT-QID 02/18/18 03/10/18 Atorvastatin [Lipitor] 20 mg PO HS 02/18/18 03/10/18 Ferrous Sulfate [Iron (65 MG 325 mg PO BID 02/18/18 03/10/18 Elemental)] Insulin Aspart [NovoLOG Flexpen] 10 units SQ TID 02/18/18 03/10/18 Insulin Detemir [Levemir Flextouch] 40 units SQ HS 02/18/18 03/10/18 traMADol HCL [Ultram] 50 mg PO TID 02/18/18 03/10/18 Carvedilol [Coreg] 12.5 mg PO BID 03/10/18 03/10/18 Furosemide [Lasix] 40 mg PO BID 03/10/18 03/10/18 Previous Rx's Medication Instructions Recorded Amiodarone [Cordarone] 200 mg PO DAILY #0 02/23/18 Gabapentin [Neurontin] 300 mg PO HS #0 02/23/18 SILVER sulfADIAZINE Cream 1 applic TOPICAL BID #120 applic 02/23/18 [Silvadene 1% Cream] Cephalexin [Keflex] 500 mg PO Q6HR #20 cap 03/10/18 Ondansetron Odt [Zofran Odt] 4 mg PO Q8HR PRN #7 tab 03/10/18 Phenazopyridine [Pyridium] 200 mg PO TID #6 tablet 03/10/18 Allergies Allergy/AdvReac Type Severity Reaction Status Date / Time No Known Allergies Allergy Verified 03/10/18 11:45 Review of Systems ROS Statement: Those systems with pertinent positive or pertinent negative responses have been documented in the HPI. ROS Other: All systems not noted in ROS Statement are negative. Constitutional: Reports: fever, chills. Denies: weakness Eyes: Denies: eye pain, eye discharge, vision change ENT: Denies: ear pain, throat pain Respiratory: Denies: cough, dyspnea Cardiovascular: Denies: chest pain, palpitations Endocrine: Denies: fatigue, polydipsia, polyuria Gastrointestinal: Reports: nausea, vomiting. Denies: abdominal pain, diarrhea, constipation Genitourinary: Reports: urgency, dysuria, frequency. Denies: hematuria, discharge Musculoskeletal: Denies: back pain, arthralgia, myalgia Skin: Denies: rash, lesions Neurological: Denies: headache, weakness Psychiatric: Denies: anxiety, depression Hematological/Lymphatic: Denies: easy bleeding, easy bruising Past Medical History Past Medical History: Diabetes Mellitus, GERD/Reflux, Hyperlipidemia, Hypertension, Myocardial Infarction ([place]), Rheumatoid Arthritis ([place]) Additional Past Medical History / Comment(s): neuropathy,edentulous, cellulitis lt leg,cataracats, past uterine cysts, "gallstones", chronic back pain.. "i've had a rash for this past year on shoulders,bra line and lt leg". Last Myocardial Infarction Date:: 2014 History of Any Multi-Drug Resistant Organisms: ESBL Date of last positivie culture/infection: 10/13/17 MDRO Source:: ESBL URINE Past Surgical History: Appendectomy, Section, Coronary Bypass/CABG Additional Past Surgical History / Comment(s): d&c,, x2, 2 vessel cabg ,?uterine ablation Past Anesthesia/Blood Transfusion Reactions: No Reported Reaction Additional Past Anesthesia/Blood Transfusion Reaction / Comment(s): clausterphobia Past Psychological History: Depression Smoking Status: Former smoker Past Alcohol Use History: None Reported Past Drug Use History: None Reported - Past Family History Mother Additional Family Medical History / Comment(s): anuerysm Father Family Medical History: Myocardial Infarction ([place]) Sister(s) Additional Family Medical History / Comment(s): one sister had "hole in her heart" and a kidney transplant and another sister had ms. General Exam Limitations: no limitations, physical limitation General appearance: alert, in no apparent distress Head exam: Present: atraumatic, normocephalic, normal inspection Eye exam: Present: normal appearance, PERRL, EOMI. Absent: scleral icterus, conjunctival injection, periorbital swelling ENT exam: Present: normal exam, mucous membranes moist Neck exam: Present: normal inspection. Absent: tenderness, meningismus, lymphadenopathy Respiratory exam: Present: normal lung sounds bilaterally. Absent: respiratory distress, wheezes, rales, rhonchi, stridor Cardiovascular Exam: Present: regular rate, normal rhythm, normal heart sounds. Absent: systolic murmur, diastolic murmur, rubs, gallop, clicks GI/Abdominal exam: Present: soft, normal bowel sounds. Absent: distended, tenderness, guarding, rebound, rigid Rectal exam: Present: deferred Extremities exam: Present: normal inspection, full ROM, normal capillary refill. Absent: tenderness, pedal edema, joint swelling, calf tenderness Back exam: Present: normal inspection Neurological exam: Present: alert, oriented X3, CN II-XII intact Psychiatric exam: Present: normal affect, normal mood Skin exam: Present: warm, dry, intact, rash (lower extremity cellulitis, mild, improving) Course Vital Signs 03/10/18 03/10/18 10:59 14:49 Temperature 100.8 F H 97.7 F Pulse Rate 71 72 Respiratory 16 16 Rate Blood Pressure 109/55 140/78 O2 Sat by Pulse 90 L 96 Oximetry Medical Decision Making - Medical Decision Making 57-year-old female presented for evaluation of intractable nausea and vomiting with associated fever and dysuria/hesitancy. On physical examination she is a morbidly obese female who appears to be in no apparent distress. Abdomen is soft and nontender without peritoneal signs of guarding, rigidity, rebound or extremity's exhibit cellulitis which appears to be progressing and improving. The remainder of the physical exam is benign and she does not have any active vomiting in the department. Labs revealed a mild cytosis of 13.8 and an anemia which is at her baseline. She also has chronic kidney disease which is improved from her baseline otherwise no significant blood abnormalities. Urinalysis shows a urinary tract infection and she will be started on antibiotics for treatment. The patient states improve in nausea with Zofran. She was informed of all results and through shared decision making it was determined that she would be discharged with instructions follow up with her primary care physician but to return of her symptoms should worsen or persist. A urine culture was sent and she was advised to get her antibiotic prescription filled and take as directed. The patient acknowledged an understanding of all information provided and agreed with this plan of care. - Lab Data Result diagrams: 03/10/18 11:09 03/10/18 11:09 Lab Results 03/10/18 03/10/18 03/10/18 Range/Units 11:09 11:09 11:09 WBC 13.8 H (3.8-10.6) k/uL RBC 3.33 L (3.80-5.40) m/uL Hgb 9.4 L (11.4-16.0) gm/dL Hct 29.7 L (34.0-46.0) % MCV 89.2 (80.0-100.0) fL MCH 28.1 (25.0-35.0) pg MCHC 31.5 (31.0-37.0) g/dL RDW 17.5 H (11.5-15.5) % Plt Count 191 (150-450) k/uL Neutrophils % 88 % Lymphocytes % 2 % Monocytes % 7 % Eosinophils % 0 % Basophils % 0 % Neutrophils # 12.1 H (1.3-7.7) k/uL Lymphocytes # 0.3 L (1.0-4.8) k/uL Monocytes # 1.0 (0-1.0) k/uL Eosinophils # 0.0 (0-0.7) k/uL Basophils # 0.0 (0-0.2) k/uL Hypochromasia Moderate Anisocytosis Slight Sodium 139 (137-145) mmol/L Potassium 4.5 (3.5-5.1) mmol/L Chloride 100 (98-107) mmol/L Carbon Dioxide 22 (22-30) mmol/L Anion Gap 17 mmol/L BUN 67 H (7-17) mg/dL Creatinine 2.14 H (0.52-1.04) mg/dL Est GFR (CKD-EPI)AfAm 29 (>60 ml/min/1.73 sqM) Est GFR (CKD-EPI)NonAf 25 (>60 ml/min/1.73 sqM) Glucose 245 H (74-99) mg/dL Plasma Lactic Acid Sylvester 1.0 (0.7-2.0) mmol/L Calcium 8.5 (8.4-10.2) mg/dL Total Bilirubin 0.9 (0.2-1.3) mg/dL AST 38 H (14-36) U/L ALT 45 (9-52) U/L Alkaline Phosphatase 84 (38-126) U/L Total Protein 6.2 L (6.3-8.2) g/dL Albumin 3.7 (3.5-5.0) g/dL Lipase 12 L (23-300) U/L Urine Color Urine Appearance (Clear) Urine pH (5.0-8.0) Ur Specific Mcfarland (1.001-1.035) Urine Protein (Negative) Urine Glucose (UA) (Negative) Urine Ketones (Negative) Urine Blood (Negative) Urine Nitrite (Negative) Urine Bilirubin (Negative) Urine Urobilinogen (<2.0) mg/dL Ur Leukocyte Esterase (Negative) Urine RBC (0-5) /hpf Urine WBC (0-5) /hpf Urine WBC Clumps (None) /hpf Ur Squamous Epith Cells (0-4) /hpf Urine Bacteria (None) /hpf 03/10/18 Range/Units 11:31 WBC (3.8-10.6) k/uL RBC (3.80-5.40) m/uL Hgb (11.4-16.0) gm/dL Hct (34.0-46.0) % MCV (80.0-100.0) fL MCH (25.0-35.0) pg MCHC (31.0-37.0) g/dL RDW (11.5-15.5) % Plt Count (150-450) k/uL Neutrophils % % Lymphocytes % % Monocytes % % Eosinophils % % Basophils % % Neutrophils # (1.3-7.7) k/uL Lymphocytes # (1.0-4.8) k/uL Monocytes # (0-1.0) k/uL Eosinophils # (0-0.7) k/uL Basophils # (0-0.2) k/uL Hypochromasia Anisocytosis Sodium (137-145) mmol/L Potassium (3.5-5.1) mmol/L Chloride (98-107) mmol/L Carbon Dioxide (22-30) mmol/L Anion Gap mmol/L BUN (7-17) mg/dL Creatinine (0.52-1.04) mg/dL Est GFR (CKD-EPI)AfAm (>60 ml/min/1.73 sqM) Est GFR (CKD-EPI)NonAf (>60 ml/min/1.73 sqM) Glucose (74-99) mg/dL Plasma Lactic Acid Sylvester (0.7-2.0) mmol/L Calcium (8.4-10.2) mg/dL Total Bilirubin (0.2-1.3) mg/dL AST (14-36) U/L ALT (9-52) U/L Alkaline Phosphatase (38-126) U/L Total Protein (6.3-8.2) g/dL Albumin (3.5-5.0) g/dL Lipase (23-300) U/L Urine Color Yellow Urine Appearance Cloudy H (Clear) Urine pH 6.0 (5.0-8.0) Ur Specific Mcfarland 1.012 (1.001-1.035) Urine Protein 2+ H (Negative) Urine Glucose (UA) Negative (Negative) Urine Ketones Negative (Negative) Urine Blood Small H (Negative) Urine Nitrite Negative (Negative) Urine Bilirubin Negative (Negative) Urine Urobilinogen <2.0 (<2.0) mg/dL Ur Leukocyte Esterase Large H (Negative) Urine RBC 5 (0-5) /hpf Urine WBC 133 H (0-5) /hpf Urine WBC Clumps Few H (None) /hpf Ur Squamous Epith Cells 2 (0-4) /hpf Urine Bacteria Moderate H (None) /hpf - EKG Data EKG Comments: Sinus rhythm with first-degree AV block and a ventricular rate of 69. Disposition Clinical Impression: UTI (urinary tract infection), CKD (chronic kidney disease), Hematuria Disposition: HOME SELF-CARE Condition: Stable Instructions: Urinary Tract Infection in Women (ED), Acute Nausea and Vomiting (ED), Acute Diarrhea (ED) Additional Instructions: Please use medication as discussed. Please follow up with family doctor if symptoms have not improved over the next two days. Please return to the emergency room if your symptoms increase or worsen or for any other concerns. Prescriptions: Cephalexin [Keflex] 500 mg PO Q6HR #20 cap Ondansetron Odt [Zofran Odt] 4 mg PO Q8HR PRN #7 tab PRN Reason: nausea Phenazopyridine [Pyridium] 200 mg PO TID #6 tablet Is patient prescribed a controlled substance at d/c from ED?: No Referrals: Arnol Santiago MD [Primary Care Provider] - 1-2 days Time of Disposition: 13:30
[2018-03-10 14:53] VITALS: BP 140/78; PULSE 72; TEMP 97.7
== END 2018-03-10 14:49 | disposition home or self-care (01) ==
LOC: EC 10:48
DX: N39.0 Urinary tract infection, site not specified (principal); I12.9 Hypertensive chronic kidney disease with stage 1 through stage 4 chronic kidney disease, or unspecified chronic kidney disease; N18.9 Chronic kidney disease, unspecified; E11.22 Type 2 diabetes mellitus with diabetic chronic kidney disease; E78.5 Hyperlipidemia, unspecified; I25.2 Old myocardial infarction; M06.9 Rheumatoid arthritis, unspecified; E11.40 Type 2 diabetes mellitus with diabetic neuropathy, unspecified; E66.01 Morbid (severe) obesity due to excess calories; Z68.41 Body mass index [BMI] 40.0-44.9, adult; Z95.1 Presence of aortocoronary bypass graft; Z87.891 Personal history of nicotine dependence; Z79.82 Long term (current) use of aspirin; Z79.02 Long term (current) use of antithrombotics/antiplatelets; Z79.4 Long term (current) use of insulin; Z79.899 Other long term (current) drug therapy
CPT/HCPCS: 36415; 80053; 81001; 83605; 83690; 85025; 93005; 96360; 99284

== ENCOUNTER 2018-05-30 17:03 | Inpatient (IN) | payer MEDICARE, OTHER ==
[2018-05-30] MEDS ORDERED: SODIUM CHLORIDE 0.9% 1,000 ML IV STA (17:43)
[2018-05-30] MEDS ORDERED: KETOROLAC 30 MG/ML 1 ML VIAL IVP STA (17:43)
[2018-05-30 18:54] LABS: Anisocytosis Slight; Basophils # (A) 0.1 k/uL (0-0.2); Basophils % (A) 0 %; Eosinophils # (A) 0.2 k/uL (0-0.7); Eosinophils % (A) 2 %; HCT 30.4 % (34.0-46.0); HGB 9.3 gm/dL (11.4-16.0); Hypochromasia Marked; Lymphocytes # (A) 0.7 k/uL (1.0-4.8); Lymphocytes % (A) 7 %; MCH 27.8 pg (25.0-35.0); MCHC 30.7 g/dL (31.0-37.0); MCV 90.3 fL (80.0-100.0); Mean Platelet Volume 7.2; Monocytes # (A) 0.7 k/uL (0-1.0); Monocytes % (A) 7 %; Neutrophils # (A) 8.6 k/uL (1.3-7.7); Neutrophils % (A) 83 %; Platelet Count 264 k/uL (150-450); RBC 3.36 m/uL (3.80-5.40); RDW 17.3 % (11.5-15.5); WBC 10.4 k/uL (3.8-10.6)
[2018-05-30 19:00] LABS: Albumin 3.8 g/dL (3.5-5.0); Calcium 8.6 mg/dL (8.4-10.2); Potassium 5.4 mmol/L (3.5-5.1); Total Bilirubin 0.8 mg/dL (0.2-1.3); Total Protein 7.2 g/dL (6.3-8.2)
[2018-05-30 19:09] LABS: INR 1.2 (<1.2); Prothrombin Time 11.4 sec (9.0-12.0)
[2018-05-30 19:10] LABS: Partial Thromboplastin Time 21.5 sec (22.0-30.0)
--- NOTE | 2018-05-30 19:36 | ED ---
Recheck HPI <Romain Mishra - Last Filed: 05/30/18 20:58> - General Source: EMS, RN notes reviewed, old records reviewed Mode of arrival: EMS Limitations: no limitations <Kavya Self - Last Filed: 05/30/18 21:11> - General Chief Complaint: Recheck/Abnormal Lab/Rx Stated Complaint: cellulitius Time Seen by Provider: 05/30/18 17:16 - History of Present Illness Initial Comments: This patient's a 57-year-old female present with increased pain over her left leg, swelling concerning for worsening cellulitis. Patient reports she is seen by her visiting nurse today and states that her cellulitis increased. Patient states she's been having a difficult time ambulating and very weak. She does have a history of kidney failure. (Kavya Self) - Related Data Home Medications Medication Instructions Recorded Confirmed Clopidogrel [Plavix] 75 mg PO DAILY 09/28/17 05/30/18 Albuterol Sulfate [Proair Hfa] 2 puff INHALATION RT-QID 02/18/18 05/30/18 Atorvastatin [Lipitor] 20 mg PO HS 02/18/18 05/30/18 Ferrous Sulfate [Iron (65 MG 325 mg PO BID 02/18/18 05/30/18 Elemental)] Insulin Aspart [NovoLOG Flexpen] 10 units SQ TID 02/18/18 05/30/18 Insulin Detemir [Levemir Flextouch] 40 units SQ HS 02/18/18 05/30/18 traMADol HCL [Ultram] 50 mg PO TID PRN 02/18/18 05/30/18 Amoxic-Pot Clav 875-125Mg 1 tab PO Q12HR 05/30/18 05/30/18 [Augmentin 875-125] Budesonide-Formot 160-4.5 Mcg 2 puff INHALATION RT-BID 05/30/18 05/30/18 [Symbicort 160-4.5 Mcg Inhaler] Carvedilol [Coreg] 3.125 mg PO BID 05/30/18 05/30/18 Furosemide [Lasix] 40 mg PO BID 05/30/18 05/30/18 Pantoprazole [Protonix] 40 mg PO BID 05/30/18 05/30/18 Previous Rx's Medication Instructions Recorded Amiodarone [Cordarone] 200 mg PO DAILY #0 02/23/18 Gabapentin [Neurontin] 300 mg PO HS #0 02/23/18 Allergies Allergy/AdvReac Type Severity Reaction Status Date / Time No Known Allergies Allergy Verified 05/30/18 17:52 Review of Systems ROS Other: All systems not noted in ROS Statement are negative. <Romain Mishra - Last Filed: 05/30/18 20:58> ROS Other: All systems not noted in ROS Statement are negative. <Kavya Self - Last Filed: 05/30/18 21:11> ROS Statement: Those systems with pertinent positive or pertinent negative responses have been documented in the HPI. Past Medical History Past Medical History: Diabetes Mellitus, GERD/Reflux, Hyperlipidemia, Hypertension, Myocardial Infarction ([place]), Rheumatoid Arthritis (RA) Additional Past Medical History / Comment(s): neuropathy,edentulous, cellulitis lt leg,cataracats, past uterine cysts, "gallstones", chronic back pain.. "i've had a rash for this past year on shoulders,bra line and lt leg". Last Myocardial Infarction Date:: 2014 History of Any Multi-Drug Resistant Organisms: ESBL Date of last positivie culture/infection: 10/13/17 MDRO Source:: ESBL URINE Past Surgical History: Appendectomy, Section, Coronary Bypass/CABG Additional Past Surgical History / Comment(s): d&c,, x2, 2 vessel cabg ,?uterine ablation Past Anesthesia/Blood Transfusion Reactions: No Reported Reaction Additional Past Anesthesia/Blood Transfusion Reaction / Comment(s): clausterphobia Past Psychological History: Depression Smoking Status: Former smoker Past Alcohol Use History: None Reported Past Drug Use History: None Reported - Past Family History Mother Additional Family Medical History / Comment(s): anuerysm Father Family Medical History: Myocardial Infarction ([place]) Sister(s) Additional Family Medical History / Comment(s): one sister had "hole in her heart" and a kidney transplant and another sister had ms. <Kavya Self - Last Filed: 05/30/18 21:11> General Exam <Romain Mishra - Last Filed: 05/30/18 20:58> Limitations: no limitations General appearance: alert, in no apparent distress Head exam: Present: atraumatic, normocephalic, normal inspection Eye exam: Present: normal appearance, PERRL, EOMI. Absent: scleral icterus, conjunctival injection, periorbital swelling ENT exam: Present: normal exam, mucous membranes moist Neck exam: Present: normal inspection. Absent: tenderness, meningismus, lymphadenopathy Respiratory exam: Present: decreased breath sounds. Absent: normal lung sounds bilaterally, respiratory distress, wheezes, rales, rhonchi, stridor Cardiovascular Exam: Present: regular rate, normal rhythm, normal heart sounds. Absent: systolic murmur, diastolic murmur, rubs, gallop, clicks GI/Abdominal exam: Present: soft, normal bowel sounds. Absent: distended, tenderness, guarding, rebound, rigid Extremities exam: Present: full ROM, normal capillary refill, other (Patient has bilateral lower extremity edema. Black eschar over the posterior calf measuring 4 cm. Also left foot eschar on the right second distal digit.). Absent: normal inspection, tenderness, pedal edema, joint swelling, calf tenderness Left Knee exam: Present: swelling, erythema Lower Leg exam: Present: tenderness, swelling, erythema (erythema over entire leg, patient has black eschar measuring 3cm over posterior calf. ). Absent: normal inspection, full ROM Ankle exam: Present: normal inspection, full ROM Foot/Toe exam: Present: normal inspection, full ROM Neurovascular tendon exam: Present: no vascular compromise Gait: observed and normal Back exam: Present: normal inspection Neurological exam: Present: alert, oriented X3, CN II-XII intact Psychiatric exam: Present: normal affect, normal mood Skin exam: Present: warm, dry, intact, normal color. Absent: rash <Kavya Self - Last Filed: 05/30/18 21:11> - General Exam Comments Initial Comments: 57-year-old female, morbid obesity. (Kavya Self) Course <Romain Mishra - Last Filed: 05/30/18 20:58> <Kavya Self - Last Filed: 05/30/18 21:11> Vital Signs 05/30/18 17:31 Pulse Rate 63 Respiratory 18 Rate Blood Pressure 178/74 O2 Sat by Pulse 95 Oximetry - Reevaluation(s) Reevaluation #1: 05/30/18 20:58 PA supervision: I personally saw and examined the patient. I reviewed and agree with the PA findings including all diagnostic crepitation treatment plans is written unless otherwise stated. (Romain Mishra) Medical Decision Making - Lab Data Result diagrams: 05/30/18 18:41 05/30/18 18:41 <Romain Mishra - Last Filed: 05/30/18 20:58> - Lab Data Result diagrams: 05/30/18 18:41 05/30/18 18:41 - Radiology Data Radiology results: report reviewed <Kavya Self - Last Filed: 05/30/18 21:11> - Medical Decision Making 49-year-old female presents emergency department today with increased pain swelling over the left leg. Patient has some surrounding erythema over the leg. She has a black eschar over the left calf. Leg was wrapped with Coban and an Yusuf wrap at this time. She does have some oozing. I instructed the Patient on Zosyn for increase. Doppler ultrasound obtained. Results are pending at this time. Patient case discussed with Raheel. She recommends consult to vascular surgeon as well, Dr. Gallo. (Kavya Self) - Lab Data Lab Results 05/30/18 05/30/18 05/30/18 Range/Units 18:41 18:41 18:41 WBC 10.4 (3.8-10.6) k/uL RBC 3.36 L (3.80-5.40) m/uL Hgb 9.3 L (11.4-16.0) gm/dL Hct 30.4 L (34.0-46.0) % MCV 90.3 (80.0-100.0) fL MCH 27.8 (25.0-35.0) pg MCHC 30.7 L (31.0-37.0) g/dL RDW 17.3 H (11.5-15.5) % Plt Count 264 (150-450) k/uL Neutrophils % 83 % Lymphocytes % 7 % Monocytes % 7 % Eosinophils % 2 % Basophils % 0 % Neutrophils # 8.6 H (1.3-7.7) k/uL Lymphocytes # 0.7 L (1.0-4.8) k/uL Monocytes # 0.7 (0-1.0) k/uL Eosinophils # 0.2 (0-0.7) k/uL Basophils # 0.1 (0-0.2) k/uL Hypochromasia Marked Anisocytosis Slight PT (9.0-12.0) sec INR (<1.2) APTT (22.0-30.0) sec Sodium 139 (137-145) mmol/L Potassium 5.4 H (3.5-5.1) mmol/L Chloride 108 H (98-107) mmol/L Carbon Dioxide 23 (22-30) mmol/L Anion Gap 8 mmol/L BUN 52 H (7-17) mg/dL Creatinine 1.40 H (0.52-1.04) mg/dL Est GFR (CKD-EPI)AfAm 48 (>60 ml/min/1.73 sqM) Est GFR (CKD-EPI)NonAf 41 (>60 ml/min/1.73 sqM) Glucose 301 H (74-99) mg/dL Plasma Lactic Acid Sylvester 1.1 (0.7-2.0) mmol/L Calcium 8.6 (8.4-10.2) mg/dL Total Bilirubin 0.8 (0.2-1.3) mg/dL AST 19 (14-36) U/L ALT 29 (9-52) U/L Alkaline Phosphatase 98 (38-126) U/L Total Protein 7.2 (6.3-8.2) g/dL Albumin 3.8 (3.5-5.0) g/dL Amylase 39 (30-110) U/L Lipase 21 L (23-300) U/L 05/30/18 Range/Units 18:41 WBC (3.8-10.6) k/uL RBC (3.80-5.40) m/uL Hgb (11.4-16.0) gm/dL Hct (34.0-46.0) % MCV (80.0-100.0) fL MCH (25.0-35.0) pg MCHC (31.0-37.0) g/dL RDW (11.5-15.5) % Plt Count (150-450) k/uL Neutrophils % % Lymphocytes % % Monocytes % % Eosinophils % % Basophils % % Neutrophils # (1.3-7.7) k/uL Lymphocytes # (1.0-4.8) k/uL Monocytes # (0-1.0) k/uL Eosinophils # (0-0.7) k/uL Basophils # (0-0.2) k/uL Hypochromasia Anisocytosis PT 11.4 (9.0-12.0) sec INR 1.2 H (<1.2) APTT 21.5 L (22.0-30.0) sec Sodium (137-145) mmol/L Potassium (3.5-5.1) mmol/L Chloride (98-107) mmol/L Carbon Dioxide (22-30) mmol/L Anion Gap mmol/L BUN (7-17) mg/dL Creatinine (0.52-1.04) mg/dL Est GFR (CKD-EPI)AfAm (>60 ml/min/1.73 sqM) Est GFR (CKD-EPI)NonAf (>60 ml/min/1.73 sqM) Glucose (74-99) mg/dL Plasma Lactic Acid Sylvester (0.7-2.0) mmol/L Calcium (8.4-10.2) mg/dL Total Bilirubin (0.2-1.3) mg/dL AST (14-36) U/L ALT (9-52) U/L Alkaline Phosphatase (38-126) U/L Total Protein (6.3-8.2) g/dL Albumin (3.5-5.0) g/dL Amylase (30-110) U/L Lipase (23-300) U/L - Radiology Data I'll CHF similar to old exam. No pulmonary consolidation. (Kavya Self) Disposition <Romain Mishra - Last Filed: 05/30/18 20:58> Is patient prescribed a controlled substance at d/c from ED?: No Time of Disposition: 21:11 <Kavya Self - Last Filed: 05/30/18 21:11> Clinical Impression: Cellulitis, leg, Cellulitis, Diabetes, Hypertension, Heart failure Disposition: ADMITTED IP TO THIS HOSP Condition: Stable Referrals: Arnol Santiago MD [Primary Care Provider] - 1-2 days
--- NOTE | 2018-05-30 19:37 | XR ---
EXAMINATION TYPE: XR KUB DATE OF EXAM: 05/30/2018 COMPARISON: NONE HISTORY: Leg swelling. Abdominal pain. TECHNIQUE: Single view FINDINGS: Exam is limited by the patient's size. Upright view fails to demonstrate evidence of a pneu moperitoneum. Bowel gas pattern appears normal. IMPRESSION: Limited exam. No sign of free air.
[2018-05-30] MEDS ORDERED: PIPERACILLIN-TAZOBACTAM 3.375 GM in DEXTROSE/WATER 1 50ML.BAG IVPB STA (20:50)
--- NOTE | 2018-05-30 21:05 | XR ---
EXAMINATION TYPE: XR chest 2V DATE OF EXAM: 05/30/2018 COMPARISON: 02/18/2018 HISTORY: Leg swelling TECHNIQUE: Frontal and lateral views of the chest are obtained. FINDINGS: Heart is enlarged. There is pulmonary vascular congestion. There are sternal wires. Exam i s limited by patient size. I see no definite pleural effusion. IMPRESSION: Mild congestive heart failure similar to old exam. No pulmonary consolidation.
[2018-05-30] MEDS ORDERED: MORPHINE SULFATE 4 MG/ML SYRINGE IV PRN (21:11)
[2018-05-30] MEDS ORDERED: ACETAMINOPHEN TAB 325 MG TAB PO PRN (21:11)
[2018-05-30] MEDS ORDERED: ONDANSETRON 4 MG/2 ML VIAL IVP PRN (21:11)
[2018-05-30] MEDS ORDERED: NALOXONE 0.4 MG/ML 1 ML VIAL IV PRN (21:11)
[2018-05-30] MEDS ORDERED: IBUPROFEN 400 MG TAB PO PRN (21:11)
[2018-05-30] MEDS ORDERED: SODIUM POLYSTYRENE SULFONATE 15 GM/60 ML BOTTLE PO STA ×2 (21:18→23:07)
[2018-05-30] MEDS ORDERED: traMADol 50 MG TAB PO PRN (21:45)
--- NOTE | 2018-05-30 21:49 | US ---
EXAMINATION TYPE: US venous doppler duplex LE LT DATE OF EXAM: 05/30/2018 9:32 PM COMPARISON: NONE CLINICAL HISTORY: Pain. Left leg edema. Exam very limited due to body habitus and edema. SIDE PERFORMED: Left TECHNIQUE: The lower extremity deep venous system is examined utilizing real time linear array sonog yaakov with graded compression, doppler sonography and color-flow sonography. VESSELS IMAGED: External Iliac Vein (EIV) Common Femoral Vein Deep Femoral Vein Greater Saphenous Vein * Femoral Vein Popliteal Vein Small Saphenous Vein * Proximal Calf Veins (* superficial vessels) Left Leg: Negative for DVT No evidence of DVT left leg. IMPRESSION: No evidence of deep venous thrombosis in the left leg.
[2018-05-30] MEDS ORDERED: FUROSEMIDE 20 MG TAB PO SCH (22:00)
[2018-05-30] MEDS ORDERED: INSULIN DETEMIR 100 UNIT/ML 10 ML VIAL SQ SCH (22:00)
[2018-05-30 22:17] LABS: Glucose,Whole Blood 287 mg/dL (75-99)
[2018-05-30] MEDS: PIPERACILLIN-TAZOBACTAM 3.375 GM in DEXTROSE/WATER 1 50ML.BAG IVPB SCH (22:36)
[2018-05-30] MEDS: INSULIN ASPART 100 UNIT/ML 1 ML 10 ML VIAL SQ SCH (23:23)
[2018-05-30] MEDS: GABAPENTIN 300 MG CAP PO SCH (23:23)
[2018-05-30] MEDS: ATORVASTATIN 20 MG TAB PO SCH (23:23)
[2018-05-30] MEDS: FERROUS SULFATE 325 MG TAB PO SCH (23:23)
[2018-05-30] MEDS: SODIUM CHLORIDE 0.9% 1,000 ML IV SCH (23:30)
[2018-05-31 02:18] LABS: Glucose,Whole Blood 300 mg/dL (75-99)
[2018-05-31 05:21] LABS: Appearance,Urine Cloudy (Clear); Bacteria,Urine Rare /hpf; Bilirubin,Urine Negative (Negative); Blood,Urine Trace (Negative); Color,Urine Yellow; Glucose,Urine (UA) Trace (Negative); Hyaline Casts,Urine 160 /lpf (0-2); Ketones,Urine Negative (Negative); Leukocyte Esterase,Urine Large (Negative); Mucus,Urine Rare /hpf; Nitrite,Urine Negative (Negative); PH, Urine 5.5 (5.0-8.0); Protein,Urine 2+ (Negative); RBC,Urine 6 /hpf (0-5); Squamous Epithelial Cell,Urine 2 /hpf (0-4); WBC,Urine 75 /hpf (0-5)
[2018-05-31] MEDS: PIPERACILLIN-TAZOBACTAM 3.375 GM in DEXTROSE/WATER 1 50ML.BAG IVPB SCH ×2 (05:46→13:22)
[2018-05-31] MEDS ORDERED: INSULIN DETEMIR 100 UNIT/ML 10 ML VIAL SQ SCH (06:34)
[2018-05-31 07:11] LABS: Glucose,Whole Blood 130 mg/dL (75-99)
[2018-05-31] MEDS: ALBUTEROL NEBULIZED 2.5 MG/3 ML INHALATION SCH ×4 (07:28→19:11)
[2018-05-31] MEDS: SYMBICORT 160-4.5 MCG INHALER INHALATION SCH ×2 (07:28→19:11)
[2018-05-31] MEDS: FERROUS SULFATE 325 MG TAB PO SCH ×2 (08:08→20:22)
[2018-05-31] MEDS: CARVEDILOL 3.125 MG TAB PO SCH ×2 (08:08→17:56)
[2018-05-31] MEDS: AMIODARONE 200 MG TAB PO SCH (08:08)
[2018-05-31] MEDS: CLOPIDOGREL 75 MG TAB PO SCH (08:08)
[2018-05-31] MEDS: PANTOPRAZOLE 40 MG TABLET PO SCH ×2 (08:08→20:22)
[2018-05-31] MEDS: FUROSEMIDE 40 MG TAB PO SCH ×2 (08:08→20:22)
[2018-05-31] MEDS: INSULIN ASPART 100 UNIT/ML 1 ML 10 ML VIAL SQ SCH ×3 (08:09→21:07)
[2018-05-31] MEDS: SODIUM CHLORIDE 0.9% 1,000 ML IV SCH (08:14)
[2018-05-31 08:59] LABS: Calcium 8.4 mg/dL (8.4-10.2); Potassium 5.4 mmol/L (3.5-5.1)
[2018-05-31] MEDS ORDERED: PANTOPRAZOLE 40 MG/10 ML VIAL IV SCH (09:00)
[2018-05-31 09:04] LABS: Anisocytosis Slight; Basophils % (A) 0 %; Eosinophils # (A) 0.3 k/uL (0-0.7); Eosinophils % (A) 3 %; HCT 31.2 % (34.0-46.0); HGB 9.2 gm/dL (11.4-16.0); Hypochromasia Marked; Lymphocytes # (A) 0.9 k/uL (1.0-4.8); Lymphocytes % (A) 9 %; MCH 27.3 pg (25.0-35.0); MCHC 29.6 g/dL (31.0-37.0); MCV 92.4 fL (80.0-100.0); Mean Platelet Volume 7.9; Monocytes # (A) 0.7 k/uL (0-1.0); Monocytes % (A) 7 %; Neutrophils # (A) 8.5 k/uL (1.3-7.7); Neutrophils % (A) 80 %; Platelet Count 272 k/uL (150-450); RBC 3.37 m/uL (3.80-5.40); RDW 17.2 % (11.5-15.5); WBC 10.6 k/uL (3.8-10.6)
[2018-05-31 12:51] LABS: Glucose,Whole Blood 94 mg/dL (75-99)
[2018-05-31] MEDS: HYDROcodone/APAP 5-325MG 1 EACH TAB PO PRN (13:41)
[2018-05-31] MEDS ORDERED: VANCOMYCIN IV PER PHARMACY 1 EACH MISC MISCELLANE PRN (13:49)
[2018-05-31] MEDS ORDERED: SODIUM POLYSTYRENE SULFONATE 15 GM/60 ML BOTTLE PO STA (13:50)
[2018-05-31] MEDS ORDERED: VANCOMYCIN 2,250 MG in SODIUM CHLORIDE 0.9% 500 ML IVPB ONE (14:30)
--- NOTE | 2018-05-31 15:18 | P.HPIM ---
History of Present Illness 57-year-old female present with increased pain over her left leg, swelling concerning for worsening cellulitis. Patient reports she is seen by her visiting nurse today and states that her cellulitis increased. Patient states she's been having a difficult time ambulating and very weak. She does have a history of kidney failure. Patient denied any shortness of breath orthopnea PND patient does have history of a severe pulmonary hypertension and right- sided heart failure, cor pulmonale and chronic lower limb swelling and cellulitis in the past. Patient does having Redness with local is of temperature mostly in the left leg. Patient does have chronic venous stasis dermatosis morbidly obese denied any history of sleep apnea. Did have a multiple episodes of the cellulitis in the past with skin breakdown patient does have skin breakdown in bilateral lower limbs and does have an a sharp in the l posterior aspect of the left leg. Patient denied any fever chills. Patient was started on Zosyn which was discussed in patient was started on IV vancomycin infectious disease will be consulted patient will need local wound care. Patient is ibuprofen will be discontinued because the for renal function. Patient's creatinine has worsened a bit. Patient is getting both IV fluids and Lasix. Patient uses Lasix at home which will be continue to IV fluids were discontinued at this time. Home care nursing is unable to care for her at home because of which she is requesting to go to subacute rehabilitation. We'll consult physical therapy and occupational therapy for further evaluation. Review of Systems REVIEW OF SYSTEMS: CONSTITUTIONAL: No fever, no malaise, no fatigue. HEENT: No recent visual problems or hearing problems. Denied any sore throat. CARDIOVASCULAR: No chest pain, orthopnea, PND, no palpitations, no syncope. PULMONARY: No shortness of breath, no cough, no hemoptysis. GASTROINTESTINAL: No diarrhea, no nausea, no vomiting, no abdominal pain. Normoactive bowel sounds. NEUROLOGICAL: No headaches, no weakness, no numbness. HEMATOLOGICAL: Denies any bleeding or petechiae. GENITOURINARY: Denies any burning micturition, frequency, or urgency. MUSCULOSKELETAL/RHEUMATOLOGICAL: Denies any joint pain, swelling, or any muscle pain. ENDOCRINE: Denies any polyuria or polydipsia. The rest of the 14-point review of systems is negative. Past Medical History Past Medical History: Diabetes Mellitus, GERD/Reflux, Hyperlipidemia, Hypertension, Myocardial Infarction (MD), Rheumatoid Arthritis (RA) Additional Past Medical History / Comment(s): neuropathy,edentulous, cellulitis lt leg,cataracats, past uterine cysts, "gallstones", chronic back pain.. "i've had a rash for this past year on shoulders,bra line and lt leg". Last Myocardial Infarction Date:: 2014 History of Any Multi-Drug Resistant Organisms: ESBL Date of last positivie culture/infection: 10/13/17 MDRO Source:: ESBL URINE Past Surgical History: Appendectomy, Section, Coronary Bypass/CABG Additional Past Surgical History / Comment(s): d&c,, x2, 2 vessel cabg ,?uterine ablation Past Anesthesia/Blood Transfusion Reactions: No Reported Reaction Additional Past Anesthesia/Blood Transfusion Reaction / Comment(s): clausterphobia Past Psychological History: Depression Additional Psychological History / Comment(s): pt lives alone at [facility]. (lost her of 30 years in jun 2017) uses walker when up and wheelchair for longer distances. has care provider thru her insurance company once a week. Smoking Status: Former smoker Past Alcohol Use History: None Reported Additional Past Alcohol Use History / Comment(s): started smoking at age 28 and quit at age 53 was smoking 3 ppd. in past used to drink but none since 1990 Past Drug Use History: None Reported - Past Family History Mother Additional Family Medical History / Comment(s): anuerysm Father Family Medical History: Myocardial Infarction (MD) Sister(s) Additional Family Medical History / Comment(s): one sister had "hole in her heart" and a kidney transplant and another sister had ms. Medications and Allergies Home Medications Medication Instructions Recorded Confirmed Type Clopidogrel [Plavix] 75 mg PO DAILY 09/28/17 05/30/18 History Albuterol Sulfate [Proair Hfa] 2 puff INHALATION RT-QID 02/18/18 05/30/18 History Atorvastatin [Lipitor] 20 mg PO HS 02/18/18 05/30/18 History Ferrous Sulfate [Iron (65 MG 325 mg PO BID 02/18/18 05/30/18 History Elemental)] Insulin Aspart [NovoLOG Flexpen] 10 units SQ TID 02/18/18 05/30/18 History Insulin Detemir [Levemir Flextouch] 40 units SQ HS 02/18/18 05/30/18 History traMADol HCL [Ultram] 50 mg PO TID PRN 02/18/18 05/30/18 History Amiodarone [Cordarone] 200 mg PO DAILY #0 02/23/18 05/30/18 Rx Gabapentin [Neurontin] 300 mg PO HS #0 02/23/18 05/30/18 Rx Amoxic-Pot Clav 875-125Mg 1 tab PO Q12HR 05/30/18 05/30/18 History [Augmentin 875-125] Budesonide-Formot 160-4.5 Mcg 2 puff INHALATION RT-BID 05/30/18 05/30/18 History [Symbicort 160-4.5 Mcg Inhaler] Carvedilol [Coreg] 3.125 mg PO BID 05/30/18 05/30/18 History Furosemide [Lasix] 40 mg PO BID 05/30/18 05/30/18 History Pantoprazole [Protonix] 40 mg PO BID 05/30/18 05/30/18 History Allergies Allergy/AdvReac Type Severity Reaction Status Date / Time No Known Allergies Allergy Verified 05/30/18 17:52 Physical Exam Vitals: Vital Signs Temp Pulse Pulse Resp BP BP Pulse Ox 05/31/18 11:10 75 16 05/31/18 11:00 79 16 05/31/18 07:40 62 05/31/18 07:29 60 18 05/31/18 06:38 97.8 F 57 L 18 114/63 93 L 05/30/18 23:00 97.9 F 62 18 158/73 91 L 05/30/18 22:06 98.3 F 05/30/18 22:00 60 18 172/72 100 05/30/18 17:31 63 18 178/74 95 Intake and Output 05/31/18 05/31/18 05/31/18 06:59 14:59 22:59 Output Total 300 Balance -300 Output: Urine 300 Other: Voiding Method Bedpan # Voids 2 Weight 148.778 kg 148.778 kg PHYSICAL EXAMINATION: GENERAL: The patient is alert and oriented x3, not in any acute distress. Morbidly obese HEENT: Pupils are round and equally reacting to light. EOMI. No scleral icterus. No conjunctival pallor. Normocephalic, atraumatic. No pharyngeal erythema. No thyromegaly. CARDIOVASCULAR: S1 and S2 present. No murmurs, rubs, or gallops. PULMONARY: Chest is clear to auscultation, no wheezing or crackles. ABDOMEN: Soft, nontender, nondistended, normoactive bowel sounds. No palpable organomegaly. MUSCULOSKELETAL: No joint swelling or deformity. EXTREMITIES: No cyanosis, clubbing, or pedal edema. NEUROLOGICAL: Gross neurological examination did not reveal any focal deficits. SKIN: Patient does have significant bilateral pedal edema mostly chronic edema with chronic venous stasis dermatosis left leg is more swollen than the right leg negative for DVT does have skin breakdown is having 3 is a temperature in the left leg. Patient appears to have cellulitis in both legs more so in the left leg. Patient does have old in the posterior aspect of the left calf within an Escher Results CBC & Chem 7: 05/31/18 08:16 05/31/18 08:16 Labs: Abnormal Lab Results - Last 24 Hours (Table) 05/30/18 05/30/18 05/30/18 Range/Units 18:41 18:41 18:41 RBC 3.36 L (3.80-5.40) m/uL Hgb 9.3 L (11.4-16.0) gm/dL Hct 30.4 L (34.0-46.0) % MCHC 30.7 L (31.0-37.0) g/dL RDW 17.3 H (11.5-15.5) % Neutrophils # 8.6 H (1.3-7.7) k/uL Lymphocytes # 0.7 L (1.0-4.8) k/uL INR 1.2 H (<1.2) APTT 21.5 L (22.0-30.0) sec Potassium 5.4 H (3.5-5.1) mmol/L Chloride 108 H (98-107) mmol/L BUN 52 H (7-17) mg/dL Creatinine 1.40 H (0.52-1.04) mg/dL Glucose 301 H (74-99) mg/dL POC Glucose (mg/dL) (75-99) mg/dL Lipase 21 L (23-300) U/L Urine Appearance (Clear) Urine Protein (Negative) Urine Glucose (UA) (Negative) Urine Blood (Negative) Ur Leukocyte Esterase (Negative) Urine RBC (0-5) /hpf Urine WBC (0-5) /hpf Urine WBC Clumps (None) /hpf Urine Bacteria (None) /hpf Hyaline Casts (0-2) /lpf Urine Mucus (None) /hpf 05/30/18 05/30/18 05/31/18 Range/Units 22:13 23:21 05:00 RBC (3.80-5.40) m/uL Hgb (11.4-16.0) gm/dL Hct (34.0-46.0) % MCHC (31.0-37.0) g/dL RDW (11.5-15.5) % Neutrophils # (1.3-7.7) k/uL Lymphocytes # (1.0-4.8) k/uL INR (<1.2) APTT (22.0-30.0) sec Potassium (3.5-5.1) mmol/L Chloride (98-107) mmol/L BUN (7-17) mg/dL Creatinine (0.52-1.04) mg/dL Glucose (74-99) mg/dL POC Glucose (mg/dL) 287 H 300 H (75-99) mg/dL Lipase (23-300) U/L Urine Appearance Cloudy H (Clear) Urine Protein 2+ H (Negative) Urine Glucose (UA) Trace H (Negative) Urine Blood Trace H (Negative) Ur Leukocyte Esterase Large H (Negative) Urine RBC 6 H (0-5) /hpf Urine WBC 75 H (0-5) /hpf Urine WBC Clumps Few H (None) /hpf Urine Bacteria Rare H (None) /hpf Hyaline Casts 160 H (0-2) /lpf Urine Mucus Rare H (None) /hpf 05/31/18 05/31/18 05/31/18 Range/Units 07:07 08:16 08:16 RBC 3.37 L (3.80-5.40) m/uL Hgb 9.2 L (11.4-16.0) gm/dL Hct 31.2 L (34.0-46.0) % MCHC 29.6 L (31.0-37.0) g/dL RDW 17.2 H (11.5-15.5) % Neutrophils # 8.5 H (1.3-7.7) k/uL Lymphocytes # 0.9 L (1.0-4.8) k/uL INR (<1.2) APTT (22.0-30.0) sec Potassium 5.4 H (3.5-5.1) mmol/L Chloride 108 H (98-107) mmol/L BUN 51 H (7-17) mg/dL Creatinine 1.64 H (0.52-1.04) mg/dL Glucose (74-99) mg/dL POC Glucose (mg/dL) 130 H (75-99) mg/dL Lipase (23-300) U/L Urine Appearance (Clear) Urine Protein (Negative) Urine Glucose (UA) (Negative) Urine Blood (Negative) Ur Leukocyte Esterase (Negative) Urine RBC (0-5) /hpf Urine WBC (0-5) /hpf Urine WBC Clumps (None) /hpf Urine Bacteria (None) /hpf Hyaline Casts (0-2) /lpf Urine Mucus (None) /hpf Microbiology - Last 24 Hours (Table) 05/30/18 18:41 Gram Stain - Preliminary Leg - Left Wound Culture - Preliminary 05/31/18 05:00 Urine Culture - Preliminary Urine,Clean Catch Thrombosis Risk Factor Assmnt - Choose All That Apply Any of the Below Risk Factors Present?: Yes Each Factor Represents 1 point: Age 41-60 years, Obesity (BMI >25), Swollen legs (current) Thrombosis Risk Factor Assessment Total Risk Factor Score: 3 Thrombosis Risk Factor Assessment Level: Moderate Risk Assessment and Plan Plan: -Cellulitis of the left leg may have Celexa the right leg as well with the chronic venous stasis dermatosis. Patient was started on IV vancomycin and infectious disease will be consulted patient need local wound care. -Generalized deconditioning secondary to multiple medical problems and morbid obesity will obtain PT and OT consultation -Chronic kidney disease stage III fairly stable kidney function continue with oral Lasix repeat the creatinine tomorrow. Worsens will hold off on diuretic therapy at that time -Hyperlipidemia -Pulmonary hypertension and chronic cor pulmonale -Possible chronic diastolic dysfunction without any acute exacerbation -Type 2 diabetes mellitus with diabetic nephropathy -Gastric esophageal reflux disease -Hypertension -About arthritis -Coronary artery disease with CABG in the past -Hypokalemia secondary to renal failure Will use kayexalate For above-mentioned chronic medical problems patient will be continued on her home medications.
[2018-05-31 17:13] LABS: Glucose,Whole Blood 149 mg/dL (75-99)
[2018-05-31] MEDS: ATORVASTATIN 20 MG TAB PO SCH (20:22)
[2018-05-31] MEDS: GABAPENTIN 300 MG CAP PO SCH (20:22)
--- NOTE | 2018-05-31 20:48 | P.GSCN ---
History of Present Illness Consult date: 05/31/18 Reason for Consult: Lower extremity wounds History of present illness: 57 year-old female presents to the hospital secondary to worsening swelling of the lower extremities which was noticed by her home care nurse. Patient states she has been treated for lower extremity swelling and cellulitis in the past but hasn't improved. She states the legs have been red, and weaping fluid and she has attempted to keep them elevated but states having increased throbbing pain. She denies any fevers, chills, nausea, vomiting, chest pain or shortness of breath. She denies any claudication type symptoms or rest pain. Review of Systems All systems: negative Past Medical History Past Medical History: Diabetes Mellitus, GERD/Reflux, Hyperlipidemia, Hypertension, Myocardial Infarction (DC), Rheumatoid Arthritis (RA) Additional Past Medical History / Comment(s): neuropathy,edentulous, cellulitis lt leg,cataracats, past uterine cysts, "gallstones", chronic back pain.. "i've had a rash for this past year on shoulders,bra line and lt leg". Last Myocardial Infarction Date:: 2014 History of Any Multi-Drug Resistant Organisms: ESBL Year Discovered:: 10/13/17 MDRO Source:: ESBL URINE Past Surgical History: Appendectomy, Section, Coronary Bypass/CABG Additional Past Surgical History / Comment(s): d&c,, x2, 2 vessel cabg ,?uterine ablation Past Anesthesia/Blood Transfusion Reactions: No Reported Reaction Additional Past Anesthesia/Blood Transfusion Reaction / Comm: clausterphobia Past Psychological History: Depression Additional Psychological History / Comment(s): pt lives alone at [facility]. (lost her of 30 years in jun 2017) uses walker when up and wheelchair for longer distances. has care provider thru her insurance company once a week. Smoking Status: Former smoker Past Alcohol Use History: None Reported Additional Past Alcohol Use History / Comment(s): started smoking at age 28 and quit at age 53 was smoking 3 ppd. in past used to drink but none since 1990 Past Drug Use History: None Reported - Past Family History Mother Additional Family Medical History / Comment(s): anuerysm Father Family Medical History: Myocardial Infarction (DC) Sister(s) Additional Family Medical History / Comment(s): one sister had "hole in her heart" and a kidney transplant and another sister had ms. Medications and Allergies Home Medications Medication Instructions Recorded Confirmed Type Clopidogrel [Plavix] 75 mg PO DAILY 09/28/17 05/30/18 History Albuterol Sulfate [Proair Hfa] 2 puff INHALATION RT-QID 02/18/18 05/30/18 History Atorvastatin [Lipitor] 20 mg PO HS 02/18/18 05/30/18 History Ferrous Sulfate [Iron (65 MG 325 mg PO BID 02/18/18 05/30/18 History Elemental)] Insulin Aspart [NovoLOG Flexpen] 10 units SQ TID 02/18/18 05/30/18 History Insulin Detemir [Levemir Flextouch] 40 units SQ HS 02/18/18 05/30/18 History traMADol HCL [Ultram] 50 mg PO TID PRN 02/18/18 05/30/18 History Amiodarone [Cordarone] 200 mg PO DAILY #0 02/23/18 05/30/18 Rx Gabapentin [Neurontin] 300 mg PO HS #0 02/23/18 05/30/18 Rx Amoxic-Pot Clav 875-125Mg 1 tab PO Q12HR 05/30/18 05/30/18 History [Augmentin 875-125] Budesonide-Formot 160-4.5 Mcg 2 puff INHALATION RT-BID 05/30/18 05/30/18 History [Symbicort 160-4.5 Mcg Inhaler] Carvedilol [Coreg] 3.125 mg PO BID 05/30/18 05/30/18 History Furosemide [Lasix] 40 mg PO BID 05/30/18 05/30/18 History Pantoprazole [Protonix] 40 mg PO BID 05/30/18 05/30/18 History Allergies Allergy/AdvReac Type Severity Reaction Status Date / Time No Known Allergies Allergy Verified 05/30/18 17:52 Surgical - Exam Vital Signs Pulse Resp BP Pulse Ox 63 18 178/74 95 05/30/18 17:31 05/30/18 17:31 05/30/18 17:31 05/30/18 17:31 - General well developed, well nourished, no distress - Eyes normal ocular movement - ENT normal pinna, normal nares - Neck no masses, trachea midline - Respiratory normal expansion, normal respiratory effort - Cardiovascular Rhythm: regular - Abdomen obese Abdomen: soft, non tender - Integumentary bilateral lower extremity 2+ pitting edema with tenderness to palpation of the posterior calf on the left. Blisters noted on the anterior and posterior aspects of the lower leg. Serous fluid draining from the posterior aspect of the lower leg. +erythema. - Psychiatric oriented to time, oriented to person, oriented to place palpable popliteal pulses bilaterally but diminished. Difficult to assess DP and PT pulses due to severe edema Results - Labs 05/31/18 08:16 05/31/18 08:16 Abnormal Lab Results - Last 24 Hours (Table) 05/30/18 05/30/18 05/31/18 Range/Units 22:13 23:21 05:00 RBC (3.80-5.40) m/uL Hgb (11.4-16.0) gm/dL Hct (34.0-46.0) % MCHC (31.0-37.0) g/dL RDW (11.5-15.5) % Neutrophils # (1.3-7.7) k/uL Lymphocytes # (1.0-4.8) k/uL Potassium (3.5-5.1) mmol/L Chloride (98-107) mmol/L BUN (7-17) mg/dL Creatinine (0.52-1.04) mg/dL POC Glucose (mg/dL) 287 H 300 H (75-99) mg/dL Urine Appearance Cloudy H (Clear) Urine Protein 2+ H (Negative) Urine Glucose (UA) Trace H (Negative) Urine Blood Trace H (Negative) Ur Leukocyte Esterase Large H (Negative) Urine RBC 6 H (0-5) /hpf Urine WBC 75 H (0-5) /hpf Urine WBC Clumps Few H (None) /hpf Urine Bacteria Rare H (None) /hpf Hyaline Casts 160 H (0-2) /lpf Urine Mucus Rare H (None) /hpf 05/31/18 05/31/18 05/31/18 Range/Units 07:07 08:16 08:16 RBC 3.37 L (3.80-5.40) m/uL Hgb 9.2 L (11.4-16.0) gm/dL Hct 31.2 L (34.0-46.0) % MCHC 29.6 L (31.0-37.0) g/dL RDW 17.2 H (11.5-15.5) % Neutrophils # 8.5 H (1.3-7.7) k/uL Lymphocytes # 0.9 L (1.0-4.8) k/uL Potassium 5.4 H (3.5-5.1) mmol/L Chloride 108 H (98-107) mmol/L BUN 51 H (7-17) mg/dL Creatinine 1.64 H (0.52-1.04) mg/dL POC Glucose (mg/dL) 130 H (75-99) mg/dL Urine Appearance (Clear) Urine Protein (Negative) Urine Glucose (UA) (Negative) Urine Blood (Negative) Ur Leukocyte Esterase (Negative) Urine RBC (0-5) /hpf Urine WBC (0-5) /hpf Urine WBC Clumps (None) /hpf Urine Bacteria (None) /hpf Hyaline Casts (0-2) /lpf Urine Mucus (None) /hpf 05/31/18 Range/Units 17:09 RBC (3.80-5.40) m/uL Hgb (11.4-16.0) gm/dL Hct (34.0-46.0) % MCHC (31.0-37.0) g/dL RDW (11.5-15.5) % Neutrophils # (1.3-7.7) k/uL Lymphocytes # (1.0-4.8) k/uL Potassium (3.5-5.1) mmol/L Chloride (98-107) mmol/L BUN (7-17) mg/dL Creatinine (0.52-1.04) mg/dL POC Glucose (mg/dL) 149 H (75-99) mg/dL Urine Appearance (Clear) Urine Protein (Negative) Urine Glucose (UA) (Negative) Urine Blood (Negative) Ur Leukocyte Esterase (Negative) Urine RBC (0-5) /hpf Urine WBC (0-5) /hpf Urine WBC Clumps (None) /hpf Urine Bacteria (None) /hpf Hyaline Casts (0-2) /lpf Urine Mucus (None) /hpf Microbiology - Last 24 Hours (Table) 05/30/18 18:41 Gram Stain - Preliminary Leg - Left Wound Culture - Preliminary 05/31/18 05:00 Urine Culture - Preliminary Urine,Clean Catch Diabetes panel 05/31/18 Range/Units 08:16 Sodium 141 (137-145) mmol/L Potassium 5.4 H (3.5-5.1) mmol/L Chloride 108 H (98-107) mmol/L Carbon Dioxide 25 (22-30) mmol/L BUN 51 H (7-17) mg/dL Creatinine 1.64 H (0.52-1.04) mg/dL Glucose 95 (74-99) mg/dL Calcium 8.4 (8.4-10.2) mg/dL Calcium panel 05/31/18 Range/Units 08:16 Calcium 8.4 (8.4-10.2) mg/dL Pituitary panel 05/31/18 Range/Units 08:16 Sodium 141 (137-145) mmol/L Potassium 5.4 H (3.5-5.1) mmol/L Chloride 108 H (98-107) mmol/L Carbon Dioxide 25 (22-30) mmol/L BUN 51 H (7-17) mg/dL Creatinine 1.64 H (0.52-1.04) mg/dL Glucose 95 (74-99) mg/dL Calcium 8.4 (8.4-10.2) mg/dL Adrenal panel 05/31/18 Range/Units 08:16 Sodium 141 (137-145) mmol/L Potassium 5.4 H (3.5-5.1) mmol/L Chloride 108 H (98-107) mmol/L Carbon Dioxide 25 (22-30) mmol/L BUN 51 H (7-17) mg/dL Creatinine 1.64 H (0.52-1.04) mg/dL Glucose 95 (74-99) mg/dL Calcium 8.4 (8.4-10.2) mg/dL Assessment and Plan (1) Lymphedema Current Visit: Yes Status: Acute Priority: High Code(s): I89.0 - LYMPHEDEMA, NOT ELSEWHERE CLASSIFIED SNOMED Code(s): 706731448 (2) Cellulitis, leg Current Visit: Yes Status: Acute Priority: High Code(s): L03.119 - CELLULITIS OF UNSPECIFIED PART OF LIMB SNOMED Code(s): 035918090 (3) Diabetes Current Visit: Yes Status: Acute Priority: Medium Code(s): E11.9 - TYPE 2 DIABETES MELLITUS WITHOUT COMPLICATIONS SNOMED Code(s): 21333032 (4) Heart failure Current Visit: Yes Status: Acute Priority: Medium Code(s): I50.9 - HEART FAILURE, UNSPECIFIED SNOMED Code(s): 50999232 (5) Obesity Current Visit: No Status: Acute Priority: Medium Code(s): E66.9 - OBESITY , UNSPECIFIED SNOMED Code(s): 017338858 Plan: Wrap and elevate lower extremities with kerlix and rolando wraps. Continue local wound care. Would benefit from Unna boot if possible. Recommend wound care followup with Dr. Solomon. Discussed plan with IM. Thank you for allowing me to participate in your patients care. Please page me if you have any questions.
[2018-05-31 20:54] LABS: Glucose,Whole Blood 128 mg/dL (75-99)
[2018-06-01 03:55] LABS: Glucose,Whole Blood 82 mg/dL (75-99)
[2018-06-01 04:22] LABS: Glucose,Whole Blood 87 mg/dL (75-99)
[2018-06-01] MEDS: AMPICILLIN-SULBACTAM 3 GM in SODIUM CHLORIDE 0.9% 100 ML IVPB SCH ×3 (06:05→23:54)
[2018-06-01 07:17] LABS: Glucose,Whole Blood 136 mg/dL (75-99)
[2018-06-01] MEDS: SYMBICORT 160-4.5 MCG INHALER INHALATION SCH ×2 (07:29→18:56)
[2018-06-01] MEDS: ALBUTEROL NEBULIZED 2.5 MG/3 ML INHALATION SCH ×4 (07:29→18:56)
--- NOTE | 2018-06-01 07:57 | CONS ---
CONSULTATION DATE OF SERVICE: 05/31/2018 REASON FOR CONSULTATION: Left lower extremity wound and cellulitis. HISTORY OF PRESENT ILLNESS: The patient is a 57-year-old female who did have a complex history for venous stasis ulcer and swelling in her leg. The patient has been sent to the [facility] ER yesterday with the chief complaints of increased pain to the left posterior leg area, swelling and concern for cellulitis. The patient was seen by the visiting nurse and advised to go to the hospital. The patient has been complaining of pain to the left posterior leg area predominantly more of a dull aching at times sharp, 6 to 7/10, and no radiation. The patient has some clear drainage from it and did have redness of the leg all the way to the knee area. The patient did have some chills but denies any high-grade fever. With these symptoms, the patient has been evaluated by the ER physician. The patient on arrival to the ER has been afebrile. The patient did have a normal white count 10.4, she did have cultures obtained from the left leg wound which are currently showing both gram negative as well as gram-positive. She has been treated with broad-spectrum antibiotics. Infectious Disease was consulted for further recommendation of antibiotic therapy. The patient did have a lower extremity Doppler shows negative for DVT. REVIEW OF SYSTEMS: CONSTITUTIONAL: Positive for weakness and some chills. Eyes: No complaint. ENT no complaint. Respiratory no complaint. Cardiovascular: No complaint. Genitourinary no complaint. Gastrointestinal: No complaint. Musculoskeletal no complaint. Integument as per HPI. Psychological no complaint. Endocrine no complaint. Neurological no complaint. PAST MEDICAL HISTORY: Diabetes mellitus, hypertension, hyperlipidemia, AK, rheumatoid arthritis, gastroesophageal reflux disease, neuropathy. Previous history of left lower extremity cellulitis and ESBL E coli urinary tract infection. PAST SURGICAL HISTORY: Appendectomy, , coronary artery bypass grafting. SOCIAL HISTORY: Remote history of smoking. No drinking or drug use. FAMILY HISTORY: Mother with history of aneurysm. Father history of AK. ALLERGIES: No known drug allergies. MEDICATIONS: Include the patient currently on Tylenol, [place], Ventolin; Amiodarone, Lipitor, Coreg, Plavix, iron sulfate, Lasix, NovoLog, Levemir, vancomycin pharmacy to dose, Protonix. Zosyn discontinued this morning. EXAMINATION: Blood pressure is 126/70 with a pulse of 82, temperature 98.1. She is 91% on room air. General description is a middle-aged female up in the bed in no distress. No tachypnea or accessory muscles of respiration use. HEENT: Shows no pallor or scleral icterus. Oral mucosa membranes dry. No pharyngeal erythema or thrush. Neck trachea central. No thyromegaly. LUNGS: Unlabored breathing. Decreased breath sounds in the bases. No wheeze. Heart S1, S2. Regular rate and rhythm. ABDOMEN: Soft, no tenderness. No guarding or rigidity. Extremities: Left leg with swelling and redness with superficial central left posterior leg some clear drainage. No purulence or foul smelling. Neurological: Patient is awake, alert, oriented x3. Mood and affect normal. LABS: Hemoglobin is 9.2, white count 10.6, BUN of 51, creatinine 1.64. Wound culture currently pending though the gram stain did show some moderate gram-negative bacilli and moderate gram-positive cocci in pairs and chains. DIAGNOSTIC IMPRESSION AND PLAN: Patient with acute left lower extremity venous stasis ulcers with secondary cellulitis with wound culture shows multiple pathogen growing gram-positive as well as gram- negative. The patient has been on vancomycin pharmacy to dose as well as Zosyn. The patient did have a borderline kidney function, high risk of nephrotoxicity from vancomycin. PLAN: 1. We will discontinue the vancomycin. 2. Will start the patient on Unasyn 3 g every 6 hours. 3. Local care to the left leg wound with Aquacel Silver dressing followed by moist dressing. 4. We will follow up on clinical condition and culture to further adjust medication if needed. Thank you for this consultation. We will follow the patient along with you. MMODL / IJN: [id number] /
[2018-06-01] MEDS: AMIODARONE 200 MG TAB PO SCH (08:07)
[2018-06-01] MEDS: FERROUS SULFATE 325 MG TAB PO SCH ×2 (08:07→20:55)
[2018-06-01] MEDS: CLOPIDOGREL 75 MG TAB PO SCH (08:07)
[2018-06-01] MEDS: CARVEDILOL 3.125 MG TAB PO SCH ×2 (08:07→17:30)
[2018-06-01] MEDS: FUROSEMIDE 40 MG TAB PO SCH (08:07)
[2018-06-01] MEDS: PANTOPRAZOLE 40 MG TABLET PO SCH ×2 (08:07→22:16)
[2018-06-01] MEDS: INSULIN ASPART 100 UNIT/ML 1 ML 10 ML VIAL SQ SCH ×2 (08:08→17:29)
[2018-06-01 08:40] LABS: Calcium 8.2 mg/dL (8.4-10.2); Magnesium 2.4 mg/dL (1.6-2.3); Potassium 5.5 mmol/L (3.5-5.1)
[2018-06-01 08:54] LABS: Anisocytosis Slight; Basophils % (A) 0 %; Eosinophils # (A) 0.3 k/uL (0-0.7); Eosinophils % (A) 3 %; HCT 30.6 % (34.0-46.0); Hypochromasia Marked; Lymphocytes # (A) 0.9 k/uL (1.0-4.8); Lymphocytes % (A) 9 %; MCHC 29.4 g/dL (31.0-37.0); MCV 91.9 fL (80.0-100.0); Mean Platelet Volume 7.6; Monocytes # (A) 0.6 k/uL (0-1.0); Monocytes % (A) 6 %; Neutrophils # (A) 8.2 k/uL (1.3-7.7); Neutrophils % (A) 81 %; Platelet Count 285 k/uL (150-450); RBC 3.32 m/uL (3.80-5.40); RDW 17.6 % (11.5-15.5); WBC 10.1 k/uL (3.8-10.6)
[2018-06-01] MEDS ORDERED: VANCOMYCIN 2,000 MG in SODIUM CHLORIDE 0.9% 500 ML IVPB ONE (09:00)
--- NOTE | 2018-06-01 11:06 | PN ---
PROGRESS NOTE DATE OF SERVICE: 06/01/2018 REASON FOR FOLLOWUP: Left leg wound and cellulitis. INTERVAL HISTORY: The patient is currently afebrile. She is breathing comfortably. She still complains of some pain to the left posterior leg area, though no worsening. No abdominal pain and no diarrhea. PHYSICAL EXAMINATION: On examination, blood pressure is 117/53 with a pulse of 60, temperature of 98.3. She is 92% on room air. General description is a middle-aged female lying in bed in no distress. RESPIRATORY SYSTEM: Unlabored breathing, clear to auscultation anteriorly. HEART: S1, S2. Regular rate and rhythm. ABDOMEN: Soft, no tenderness. Left leg is swollen. Wound is currently dressed, no obvious drainage on the dressing. LABS: Hemoglobin is 9, white count 10.1. BUN of 51, creatinine is 2.09. DIAGNOSTIC IMPRESSION AND PLAN: Patient with left leg venous stasis ulcer with secondary cellulitis. Wound culture revealed multiple pathogen. The patient has been adjusted to Unasyn. Will be continued. Watching the kidney function closely. Local wound care with Aquacel Silver dressing and an Yusuf wrap to keep the swelling down. Continue with supportive care. MMODL / IJN: [id number] /
--- NOTE | 2018-06-01 11:07 | P.CON ---
Consult Note - . Consult date: 06/01/18 Assessment/Plan:: Wound care consult: Reason for consult: Chronic stasis ulcers bilateral lower legs. History chief complaint: This is a severely obese 57-year-old woman who has had chronic swelling of lower legs. She was hospitalized because the became more red swollen and weeping. She has been using some form of wrap compression but apparently not effectively. A review of her comorbidities, medical history can be seen in the specifics of medicine and Dr. Stout's notes. Physical examination: Severely obese, alert, oriented 57-year-old female in no distress. HEENT exam negative: Lungs: Clear to auscultation Heart: Normal sinus rhythm Abdomen: Profoundly obese but benign Extremities: 2+ edema bilaterally she has areas of excoriation, redness, and weeping in both lower extremities. Impression: #1 Chronic stasis ulcerations bilateral lower extremities. #2 severe obesity contributed to #1. #3 type 2 diabetes Recommendation: For now I recommended that we continue with absorptive silver and somewhat more meticulously placed bilateral lower extremity Yusuf wraps for compression. These dressing should be changed 3 times a week. When we achieved good skin integrity we would switch to either prescription compression stockings with stocking applicators or CircAid stockings. I have also recommended a dietary consult for attention to her blood sugars and an emphasis on progressive weight loss. Thank you for the opportunity participate in this pleasant lady's care. I will follow her on a weekly basis in wound care.
[2018-06-01 13:15] LABS: Cholesterol 75 mg/dL (<200); HDL Cholesterol 32 mg/dL (40-60); LDL Cholesterol,Calculated 33 mg/dL (0-99); Triglycerides 52 mg/dL (<150)
--- NOTE | 2018-06-01 13:17 | P.CRDCN ---
History of Present Illness History of present illness: Mrs. Mendez is a pleasant 57-year-old female past medical history significant for coronary artery disease s/p 2-vessel bypass grafting 2013 at [facility], hypertension, dyslipidemia, diabetes mellitus, chronic diastolic heart failure, chronic b/l lower extremity edema, former heavy tobacco use and morbid obesity. She states up until 1-year ago she followed with Dr. Oglesby in [place], however has been unable to get transportation for follow up appointments. She presented to the hospital 2 days ago on recommendation of her home health aid for worsening lower extremity edema and increased weakness. She is wheelchair bound at home and has been having increased difficulty with transferring from her wheelchair to bed or to the toilet. She is being treated with IV antibiotics for lower extremity cellulitis and urinary tract infection. Chest xray on arrival reveals mild heart failure and proBNP 9550. She takes lasix 40 mg BID at home. Creatinine on arrival 1.4. She states she has chronic fluctuation with kidney function. Initially her home dose of lasix was given on admission, however creatinine went up today to 2.09 and it was discontinued as of this morning. She states over the last year she has intermittently struggled with orthopnea. It has seemed to be worse lately and she has been sleeping propped up or she feels like she is "gurgling" for air. She denies chest pain, exertional shortness of breath, dizziness, palpitations, nausea, vomiting or diaphoresis. EKG reveals sinus rhythm with first degree AV block and flattened T-waves inferiorly. Current cardiac medications include amiodarone 200 mg daily, Plavix 75 mg daily , aspirin 81 mg daily, carvedilol 3.125 mg twice a day, atorvastatin 20 mg daily and Lasix 40 mg twice a day. She states she takes amiodarone for an abnormal heart rhythm although she cannot recollect exactly what this rhythm is called. She denies ever being told she has atrial fibrillation or ventricular tachycardia. She is currently not on any long-term anticoagulation. She states she has been on Plavix since her bypass surgery. Most recent echocardiogram performed in September 2017 reveals preserved left ventricular systolic function with low-normal ejection fraction of 50-55%, mild MR and pulmonary hypertension with an RVSP of 50.34 mmHg. Review of Systems At the time of my exam: CONSTITUTIONAL: Denies fever. Denies chills. EYES: Denies blurred vision. Denies vision changes. Denies eye pain. EARS, NOSE, MOUTH & THROAT: Denies headache. Denies sore throat. Denies ear pain. CARDIOVASCULAR: Denies chest pain. Denies shortness of breath. Complains of orthopnea. Denies PND. Denies palpitations. Complains of significant chronic lower extremity edema. RESPIRATORY: Denies cough. GASTROINTESTINAL: Denies abdominal pain. Denies diarrhea. Denies constipation. Denies nausea. Denies vomiting. MUSCULOSKELETAL: Denies myalgias. INTEGUMENTARY: Denies pruitis. Denies rash. NEUROLOGIC: Denies numbness. Denies tingling. Complains of weakness. PSYCHIATRIC: Denies anxiety. Denies depression. ENDOCRINE: Denies fatigue. Denies weight change. Denies polydipsia. Denies polyurina. GENITOURINARY: Denies burning, hematuria or urgency with micturation. HEMATOLOGIC: Denies history of anemia. Denies bleeding. Past Medical History Past Medical History: Diabetes Mellitus, GERD/Reflux, Hyperlipidemia, Hypertension, Myocardial Infarction ([place]), Rheumatoid Arthritis (RA) Additional Past Medical History / Comment(s): neuropathy,edentulous, cellulitis lt leg,cataracats, past uterine cysts, "gallstones", chronic back pain.. "i've had a rash for this past year on shoulders,bra line and lt leg". Last Myocardial Infarction Date:: 2014 History of Any Multi-Drug Resistant Organisms: ESBL Date of last positivie culture/infection: 10/13/17 MDRO Source:: ESBL URINE Past Surgical History: Appendectomy, Section, Coronary Bypass/CABG Additional Past Surgical History / Comment(s): d&c,, x2, 2 vessel cabg ,?uterine ablation Past Anesthesia/Blood Transfusion Reactions: No Reported Reaction Additional Past Anesthesia/Blood Transfusion Reaction / Comment(s): clausterphobia Past Psychological History: Depression Additional Psychological History / Comment(s): pt lives alone at [facility]. (lost her of 30 years in jun 2017) uses walker when up and wheelchair for longer distances. has care provider thru her insurance company once a week. Smoking Status: Former smoker Past Alcohol Use History: None Reported Additional Past Alcohol Use History / Comment(s): started smoking at age 28 and quit at age 53 was smoking 3 ppd. in past used to drink but none since 1990 Past Drug Use History: None Reported - Past Family History Mother Additional Family Medical History / Comment(s): anuerysm Father Family Medical History: Myocardial Infarction ([place]) Sister(s) Additional Family Medical History / Comment(s): one sister had "hole in her heart" and a kidney transplant and another sister had ms. Medications and Allergies Home Medications Medication Instructions Recorded Confirmed Type Clopidogrel [Plavix] 75 mg PO DAILY 09/28/17 05/30/18 History Albuterol Sulfate [Proair Hfa] 2 puff INHALATION RT-QID 02/18/18 05/30/18 History Atorvastatin [Lipitor] 20 mg PO HS 02/18/18 05/30/18 History Ferrous Sulfate [Iron (65 MG 325 mg PO BID 02/18/18 05/30/18 History Elemental)] Insulin Aspart [NovoLOG Flexpen] 10 units SQ TID 02/18/18 05/30/18 History Insulin Detemir [Levemir Flextouch] 40 units SQ HS 02/18/18 05/30/18 History traMADol HCL [Ultram] 50 mg PO TID PRN 02/18/18 05/30/18 History Amiodarone [Cordarone] 200 mg PO DAILY #0 02/23/18 05/30/18 Rx Gabapentin [Neurontin] 300 mg PO HS #0 02/23/18 05/30/18 Rx Amoxic-Pot Clav 875-125Mg 1 tab PO Q12HR 05/30/18 05/30/18 History [Augmentin 875-125] Budesonide-Formot 160-4.5 Mcg 2 puff INHALATION RT-BID 05/30/18 05/30/18 History [Symbicort 160-4.5 Mcg Inhaler] Carvedilol [Coreg] 3.125 mg PO BID 05/30/18 05/30/18 History Furosemide [Lasix] 40 mg PO BID 05/30/18 05/30/18 History Pantoprazole [Protonix] 40 mg PO BID 05/30/18 05/30/18 History Allergies Allergy/AdvReac Type Severity Reaction Status Date / Time No Known Allergies Allergy Verified 05/30/18 17:52 Physical Exam Vitals: Vital Signs Temp Pulse Pulse Resp BP Pulse Ox 06/01/18 11:22 60 06/01/18 11:10 58 L 06/01/18 07:47 60 06/01/18 07:29 60 06/01/18 06:37 98.3 F 60 18 117/53 92 L 05/31/18 23:00 97.1 F L 58 L 18 121/56 92 L 05/31/18 19:25 64 16 05/31/18 19:11 61 16 05/31/18 15:57 61 16 05/31/18 15:56 16 05/31/18 15:45 58 L 16 05/31/18 15:00 98.1 F 62 18 126/70 91 L Intake and Output 05/31/18 06/01/18 06/01/18 22:59 06:59 14:59 Intake Total 500 1200 Balance 500 1200 Intake: Oral 500 1200 Other: Voiding Method Bedpan # Voids 0 1 1 # Bowel Movements 1 Weight 151.5 kg Blood pressure 117/53 heart rate 60 afebrile maintaining oxygen saturation on room air GENERAL: This is a 57-year-old female in no apparent distress at the time of my examination. Morbidly obese. HEENT: Head is atraumatic, normocephalic. Pupils are equal, round. Sclerae anicteric. Conjunctivae are clear. Mucous membranes of the mouth are moist. Neck is supple. There is no jugular venous distention. No carotid bruit is heard. LUNGS: Expiratory wheezing noted, diminished bilaterally. No rales or rhonchi. No chest wall tenderness is noted on palpation or with deep breathing. HEART: Regular rate and rhythm with murmur at left sternal border, no rubs or gallops. S1 and S2 heard. ABDOMEN: Soft, nontender. Bowel sounds are heard. No organomegaly noted. EXTREMITIES: 2+ bilateral lower extremity pitting edema left worse then right. Left lower extremity with Yusuf wrap in place. Significant erythema noted to the right lower extremity. No calf tenderness noted. VASCULAR: Radial and dorsalis pedis pulses palpated, no evidence of clubbing. NEUROLOGIC: Patient is awake, alert and oriented x3. Results 06/01/18 08:04 06/01/18 08:04 Cardiac Enzymes 06/01/18 Range/Units 08:04 Troponin I <0.012 (0.000-0.034) ng/mL CBC 06/01/18 Range/Units 08:04 WBC 10.1 (3.8-10.6) k/uL RBC 3.32 L (3.80-5.40) m/uL Hgb 9.0 L (11.4-16.0) gm/dL Hct 30.6 L (34.0-46.0) % Plt Count 285 (150-450) k/uL Comprehensive Metabolic Panel 06/01/18 Range/Units 08:04 Sodium 141 (137-145) mmol/L Potassium 5.5 H (3.5-5.1) mmol/L Chloride 109 H (98-107) mmol/L Carbon Dioxide 25 (22-30) mmol/L BUN 51 H (7-17) mg/dL Creatinine 2.09 H (0.52-1.04) mg/dL Glucose 121 H (74-99) mg/dL Calcium 8.2 L (8.4-10.2) mg/dL Current Medications Generic Name Dose Route Start Last Admin Trade Name Freq PRN Reason Stop Dose Admin Acetaminophen 650 mg 05/30/18 21:11 Tylenol Tab PO Q6HR PRN Mild Pain or Fever > 100.5 Hydrocodone Bitart/Acetaminophen 1 each 05/30/18 21:11 05/31/18 13:41 [place] 5-325 PO 1 each Q4HR PRN Administration Moderate Pain Albuterol Sulfate 2.5 mg 05/31/18 08:00 06/01/18 11:10 Ventolin Nebulized INHALATION 2.5 mg RT-QID DAVIE Administration Amiodarone HCl 200 mg 05/31/18 09:00 06/01/18 08:07 Cordarone PO 200 mg DAILY DAVIE Administration Atorvastatin Calcium 20 mg 05/30/18 22:00 05/31/18 20:22 Lipitor PO 20 mg HS DAVIE Administration Budesonide/Formoterol Fumarate 2 puff 05/31/18 08:00 06/01/18 07:29 Symbicort 160-4.5 Mcg Inhaler INHALATION 2 puff RT-BID DAVIE Administration Carvedilol 3.125 mg 05/31/18 07:30 06/01/18 08:07 Coreg PO 3.125 mg BID-W/MEALS DAVIE Administration Clopidogrel Bisulfate 75 mg 05/31/18 09:00 06/01/18 08:07 Plavix PO 75 mg DAILY DAVIE Administration Ferrous Sulfate 325 mg 05/30/18 22:00 06/01/18 08:07 Feosol PO 325 mg BID DAVIE Administration Gabapentin 300 mg 05/30/18 22:00 05/31/18 20:22 Neurontin PO 300 mg HS DAVIE Administration Ampicillin Sodium/Sulbactam 100 mls @ 100 mls/hr 06/01/18 06:00 06/01/18 11: 07 Sodium 3 gm/ Sodium Chloride IVPB 100 mls/hr Q6HR DAVIE Administration Insulin Aspart 10 unit 05/30/18 22:00 06/01/18 08:08 Novolog SQ 10 unit TID DAVIE Administration Insulin Detemir 40 unit 05/31/18 06:34 05/31/18 21:07 Levemir SQ 40 unit HS DAVIE Administration Naloxone HCl 0.2 mg 05/30/18 21:11 Narcan IV Q2M PRN Opioid Reversal Ondansetron HCl 4 mg 05/30/18 21:11 06/01/18 03:41 Zofran IVP 4 mg Q8HR PRN Administration Nausea And Vomiting Pantoprazole Sodium 40 mg 05/31/18 09:00 06/01/18 08:07 Protonix PO 40 mg BID DAVIE Administration Tramadol HCl 50 mg 05/30/18 21:45 Ultram PO TID PRN Pain Intake and Output 05/31/18 06/01/18 06/01/18 22:59 06:59 14:59 Intake Total 500 1200 Balance 500 1200 Intake: Oral 500 1200 Other: Voiding Method Bedpan # Voids 0 1 1 # Bowel Movements 1 Weight 151.5 kg 06/01/18 08:04 06/01/18 08:04 Assessment and Plan Assessment: ASSESSMENT Cellulitis Urinary tract infection Pulmonary hypertension, RVSP 50.34 on last echocardiogram Acute on chronic kidney disease, GFR 26. Stage IV. Hyperkalemia Hyperreninemia History of coronary artery disease status post bypass grafting 2013 Hypertension Dyslipidemia Diabetes mellitus Anemia Morbid obesity, BMI 57.3 PLAN Patient does have an elevated proBNP with no clear overt heart failure. Lower extremity edema chronic and secondary to cellulitis as well as physical deconditioning. There may be a component of chronic diastolic dysfunction, echo will be obtained and reviewed. Obtain 2-D echocardiogram and Doppler study to assess cardiac structure and function. Request records regarding bypass surgery as well as office notes from Dr. Hernandez. Will attempt to clarify why she is on amiodarone and plavix. Suspect plavix can be discontinued. Resume aspirin 81 mg daily. Continue atorvastatin and carvedilol at home doses. Check lipid panel. Further recommendations to follow based on clinical course, thank you kindly for this consultation. Nurse Practitioner note has been reviewed, I agree with a documented findings and plan of care. Patient was seen and examined.
[2018-06-01 14:54] VITALS: BMI 57.3
[2018-06-01 16:46] LABS: Glucose,Whole Blood 175 mg/dL (75-99)
[2018-06-01 17:37] LABS: Glucose,Whole Blood 178 mg/dL (75-99)
[2018-06-01] MEDS ORDERED: SODIUM CHLORIDE 0.9% 1,000 ML IV SCH (18:00)
[2018-06-01] MEDS ORDERED: SODIUM POLYSTYRENE SULFONATE 15 GM/60 ML BOTTLE PO STA (19:21)
--- NOTE | 2018-06-01 19:24 | P.PN ---
Subjective Progress Note Date: 06/01/18 PROGRESS NOTE being dictated for Dr. Heard. General history:57-year-old female present with increased pain over her left leg , swelling concerning for worsening cellulitis. Patient reports she is seen by her visiting nurse today and states that her cellulitis increased. Patient states she's been having a difficult time ambulating and very weak. She does have a history of kidney failure. Patient denied any shortness of breath orthopnea PND patient does have history of a severe pulmonary hypertension and right-sided heart failure, cor pulmonale and chronic lower limb swelling and cellulitis in the past. Patient does having Redness with local is of temperature mostly in the left leg. Patient does have chronic venous stasis dermatosis morbidly obese denied any history of sleep apnea. Did have a multiple episodes of the cellulitis in the past with skin breakdown patient does have skin breakdown in bilateral lower limbs and does have an a sharp in the l posterior aspect of the left leg. Patient denied any fever chills. Patient was started on Zosyn which was discussed in patient was started on IV vancomycin infectious disease will be consulted patient will need local wound care. Patient is ibuprofen will be discontinued because the for renal function. Patient's creatinine has worsened a bit. Patient is getting both IV fluids and Lasix. Patient uses Lasix at home which will be continue to IV fluids were discontinued at this time. Home care nursing is unable to care for her at home because of which she is requesting to go to subacute rehabilitation. We'll consult physical therapy and occupational therapy for further evaluation. Review of Systems REVIEW OF SYSTEMS: CONSTITUTIONAL: No fever, no malaise, no fatigue. HEENT: No recent visual problems or hearing problems. Denied any sore throat. CARDIOVASCULAR: No chest pain, orthopnea, PND, no palpitations, no syncope. PULMONARY: No shortness of breath, no cough, no hemoptysis. GASTROINTESTINAL: No diarrhea, no nausea, no vomiting, no abdominal pain. Normoactive bowel sounds. NEUROLOGICAL: No headaches, no weakness, no numbness. HEMATOLOGICAL: Denies any bleeding or petechiae. GENITOURINARY: Denies any burning micturition, frequency, or urgency. MUSCULOSKELETAL/RHEUMATOLOGICAL: Denies any joint pain, swelling, or any muscle pain. ENDOCRINE: Denies any polyuria or polydipsia. The rest of the 14-point review of systems is negative. 06/01/2018 sitting up in chair, no acute distress. Worsening renal function this morning. Lasix discontinued. Potassium 5.5. Mild hyperglycemia in the director of early childhood education hours. Afebrile. Mild Bilateral leg pain. Maintained on IV antibiotics as per infectious disease. Preliminary wound culture reporting multiple organisms. Good diet intake, no nausea, vomiting or diarrhea. Evaluated by vascular surgery, recommendations noted. Objective - Vital Signs Vital signs: Vital Signs Temp 97.2 F L 06/01/18 15:00 Pulse 66 06/01/18 15:48 Resp 16 06/01/18 15:27 BP 151/68 06/01/18 15:00 Pulse Ox 96 06/01/18 15:00 Intake & Output 05/31/18 06/01/18 06/01/18 18:59 06:59 18:59 Intake Total 1700 Balance 1700 Weight 148.778 kg 151.5 kg 151.5 kg Intake: Oral 1700 Other: Voiding Method Bedpan Bedpan # Voids 1 1 3 # Bowel Movements 1 1 - Exam GENERAL: The patient is alert and oriented x3, not in any acute distress. HEENT: Pupils are round and equally reacting to light. EOMI. No scleral icterus. No conjunctival pallor. Normocephalic, atraumatic. No pharyngeal erythema. CARDIOVASCULAR: S1 and S2 present. No murmurs, rubs, or gallops. PULMONARY: Chest is clear to auscultation, no wheezing or crackles. ABDOMEN: Soft, nontender, nondistended, normoactive bowel sounds. No palpable organomegaly. EXTREMITIES: Chronic stasis ulcers of Bilateral lower legs, positive edema, Yusuf wrapped, clean, dry and intact. NEUROLOGICAL: Gross neurological examination did not reveal any focal deficits. - Labs CBC & Chem 7: 06/01/18 08:04 06/01/18 08:04 Labs: Abnormal Lab Results - Last 24 Hours (Table) 05/31/18 06/01/18 06/01/18 Range/Units 20:44 07:15 08:04 RBC 3.32 L (3.80-5.40) m/uL Hgb 9.0 L (11.4-16.0) gm/dL Hct 30.6 L (34.0-46.0) % MCHC 29.4 L (31.0-37.0) g/dL RDW 17.6 H (11.5-15.5) % Neutrophils # 8.2 H (1.3-7.7) k/uL Lymphocytes # 0.9 L (1.0-4.8) k/uL Potassium (3.5-5.1) mmol/L Chloride (98-107) mmol/L BUN (7-17) mg/dL Creatinine (0.52-1.04) mg/dL Glucose (74-99) mg/dL POC Glucose (mg/dL) 128 H 136 H (75-99) mg/dL Calcium (8.4-10.2) mg/dL Magnesium (1.6-2.3) mg/dL HDL Cholesterol (40-60) mg/dL 06/01/18 06/01/18 06/01/18 Range/Units 08:04 08:04 12:27 RBC (3.80-5.40) m/uL Hgb (11.4-16.0) gm/dL Hct (34.0-46.0) % MCHC (31.0-37.0) g/dL RDW (11.5-15.5) % Neutrophils # (1.3-7.7) k/uL Lymphocytes # (1.0-4.8) k/uL Potassium 5.5 H (3.5-5.1) mmol/L Chloride 109 H (98-107) mmol/L BUN 51 H (7-17) mg/dL Creatinine 2.09 H (0.52-1.04) mg/dL Glucose 121 H (74-99) mg/dL POC Glucose (mg/dL) 175 H (75-99) mg/dL Calcium 8.2 L (8.4-10.2) mg/dL Magnesium 2.4 H (1.6-2.3) mg/dL HDL Cholesterol 32 L (40-60) mg/dL 06/01/18 Range/Units 16:52 RBC (3.80-5.40) m/uL Hgb (11.4-16.0) gm/dL Hct (34.0-46.0) % MCHC (31.0-37.0) g/dL RDW (11.5-15.5) % Neutrophils # (1.3-7.7) k/uL Lymphocytes # (1.0-4.8) k/uL Potassium (3.5-5.1) mmol/L Chloride (98-107) mmol/L BUN (7-17) mg/dL Creatinine (0.52-1.04) mg/dL Glucose (74-99) mg/dL POC Glucose (mg/dL) 178 H (75-99) mg/dL Calcium (8.4-10.2) mg/dL Magnesium (1.6-2.3) mg/dL HDL Cholesterol (40-60) mg/dL Microbiology - Last 24 Hours (Table) 05/31/18 05:00 Urine Culture - Final Urine,Clean Catch 05/30/18 18:41 Blood Culture - Preliminary Blood No Growth after 24 hours Assessment and Plan Assessment: -Cellulitis of the left leg , chronic venous stasis dermatosis of bilateral legs. -Generalized deconditioning secondary to multiple medical problems and morbid obesity, BMI 57 -Chronic kidney disease stage III -Hyperlipidemia -Pulmonary hypertension and chronic cor pulmonale -Possible chronic diastolic dysfunction without any acute exacerbation -Type 2 diabetes mellitus with diabetic nephropathy -Gastric esophageal reflux disease -Hypertension -About arthritis -Coronary artery disease with CABG in the past -Hyperkalemia Plan: Continue on current medication regime ,monitoring and symptomatic treatment. Evaluated by both infectious disease and vascular's surgery with recommendations noted and appreciated. Wound care, antibiotics as per ID. Mild hypoglycemia early this morning, Levemir and pre-meal insulin doses decreased. Close monitoring of Accu-Cheks. Worsening renal function. Lasix discontinued. One liter IV fluids ordered, and pivl. Kayexalate ordered. Close monitoring of renal function, electrolytes with repeat labs ordered for a.m. Discharge planning in progress to subacute rehab possibly tomorrow, pending finalization of cultures. The impression and plan of care has been dictated as directed. : I performed a history and examination of this patient, discussed the same with the dictator. I agree with the dictator's note ,documented as a scribe. Any additional findings or plans will be noted.
[2018-06-01 20:48] LABS: Glucose,Whole Blood 155 mg/dL (75-99)
[2018-06-01] MEDS: GABAPENTIN 300 MG CAP PO SCH (20:55)
[2018-06-01] MEDS: ATORVASTATIN 20 MG TAB PO SCH (20:56)
[2018-06-01] MEDS: HYDROcodone/APAP 5-325MG 1 EACH TAB PO PRN (20:56)
[2018-06-01] MEDS: INSULIN DETEMIR 100 UNIT/ML 10 ML VIAL SQ SCH (21:18)
[2018-06-02] MEDS: SYMBICORT 160-4.5 MCG INHALER INHALATION SCH ×2 (07:14→19:02)
[2018-06-02] MEDS: ALBUTEROL NEBULIZED 2.5 MG/3 ML INHALATION SCH ×4 (07:14→19:02)
[2018-06-02 07:19] LABS: Glucose,Whole Blood 126 mg/dL (75-99)
--- NOTE | 2018-06-02 07:25 | ECHOF ---
Referral Reason:elevated bnp MEASUREMENTS -------- HEIGHT: 162.6 cm WEIGHT: 151.5 kg BP: 117/53 RVIDd: 3.9 cm (< 3.3) IVSd: 1.0 cm (0.6 - 1.1) LVIDd: 5.0 cm (3.9 - 5.3) LVPWd: 1.0 cm (0.6 - 1.1) IVSs: 1.6 cm LVIDs: 3.5 cm LVPWs: 1.6 cm LA Diam: 4.7 cm (2.7 - 3.8) Ao Diam: 2.5 cm (2.0 - 3.7) AV Cusp: 1.6 cm (1.5 - 2.6) LA Diam: 4.9 cm (2.7 - 3.8) MV E Shmuel: 1.32 m/s MV DecT: 229 ms MV A Shmuel: 0.82 m/s MV E/A Ratio: 1.61 RAP: 15.00 mmHg RVSP: 57.82 mmHg FINDINGS -------- Sinus rhythm. This was a technically difficult study with suboptimal views. The left ventricular size is normal. There is borderline concentric left ventricular hypertrophy. Overall left ventricular systolic function is low-normal with, an EF between 50 - 55 %. The LV end diastolic pressure is elevated 26.30. The right ventricle is mild to moderately enlarged. The left atrium is moderately dilated. The right atrium was not well visualized. 3 ml of Lumason was utilized for enhancement of images. Aortic valve is trileaflet and is mildly thickened. There is no evidence of aortic regurgitation. There is no evidence of aortic stenosis. Mild mitral annular calcification present. Mild mitral regurgitation is present. Moderate tricuspid regurgitation present. There is moderate pulmonary hypertension. The right ricky tricular systolic pressure, as measured by Doppler, is 57.82mmHg. The pulmonic valve was not well visualized. The aortic root size is normal. The inferior vena cava is dilated with no significant inspiratory collapse which is consistent estima denise right atrial pressure of >20 mmHg. There is no pericardial effusion. CONCLUSIONS -------- 1. Sinus rhythm. 2. This was a technically difficult study with suboptimal views. 3. The left ventricular size is normal. 4. There is borderline concentric left ventricular hypertrophy. 5. Overall left ventricular systolic function is low-normal with, an EF between 50 - 55 %. 6. The LV end diastolic pressure is elevated 26.30. 7. The right ventricle is mild to moderately enlarged. 8. The left atrium is moderately dilated. 9. 3 ml of Lumason was utilized for enhancement of images. 10. Aortic valve is trileaflet and is mildly thickened. 11. Mild mitral annular calcification present. 12. Mild mitral regurgitation is present. 13. Moderate tricuspid regurgitation present. 14. There is moderate pulmonary hypertension. 15. The pulmonic valve was not well visualized. 16. The aortic root size is normal. 17. The inferior vena cava is dilated with no significant inspiratory collapse which is consistent es timated right atrial pressure of >20 mmHg. 18. There is no pericardial effusion. SHREDDING SPECIALIST: Roderick Tyler RDCS
[2018-06-02] MEDS: PANTOPRAZOLE 40 MG TABLET PO SCH ×2 (08:00→20:12)
[2018-06-02] MEDS: AMIODARONE 200 MG TAB PO SCH (08:00)
[2018-06-02] MEDS: FERROUS SULFATE 325 MG TAB PO SCH ×2 (08:01→20:12)
[2018-06-02] MEDS: CARVEDILOL 3.125 MG TAB PO SCH ×2 (08:01→18:26)
[2018-06-02] MEDS: ASPIRIN 81 MG PO SCH (08:01)
[2018-06-02] MEDS: INSULIN ASPART 100 UNIT/ML 1 ML 10 ML VIAL SQ SCH ×3 (08:01→18:26)
[2018-06-02] MEDS: CLOPIDOGREL 75 MG TAB PO SCH (08:02)
[2018-06-02 08:40] LABS: Anisocytosis Slight; Basophils % (A) 0 %; Eosinophils # (A) 0.3 k/uL (0-0.7); Eosinophils % (A) 4 %; HCT 29.6 % (34.0-46.0); HGB 8.8 gm/dL (11.4-16.0); Hypochromasia Marked; Lymphocytes # (A) 0.8 k/uL (1.0-4.8); Lymphocytes % (A) 9 %; MCHC 29.6 g/dL (31.0-37.0); MCV 91.2 fL (80.0-100.0); Mean Platelet Volume 7.5; Monocytes # (A) 0.5 k/uL (0-1.0); Monocytes % (A) 6 %; Neutrophils # (A) 6.4 k/uL (1.3-7.7); Neutrophils % (A) 79 %; Platelet Count 274 k/uL (150-450); RBC 3.24 m/uL (3.80-5.40); RDW 17.2 % (11.5-15.5); WBC 8.1 k/uL (3.8-10.6)
[2018-06-02 08:41] LABS: Calcium 8.2 mg/dL (8.4-10.2); Potassium 5.1 mmol/L (3.5-5.1)
[2018-06-02 12:05] LABS: Glucose,Whole Blood 183 mg/dL (75-99)
[2018-06-02] MEDS: AMPICILLIN-SULBACTAM 3 GM in SODIUM CHLORIDE 0.9% 100 ML IVPB SCH ×2 (13:26→23:32)
--- NOTE | 2018-06-02 14:29 | P.PN ---
Subjective Mrs. Mendez is seen and examined sitting up in the chair in no acute distress. Her legs are exposed as they are in the process of rewrapping them. She describes feeling frustrated with ongoing swelling and no improvement. Detailed conversation had with her regarding multi-factorial causes for swelling. She denies chest pain, shortness of breath, dizziness or palpitations. Blood pressure 130/65 heart rate 63 afebrile maintaining oxygen saturation on room air. Laboratory data reviewed, hemoglobin 8.8, platelets 274 , sodium 142, potassium 5.1, creatinine 1.9, TSH 2.28. No records have been obtained from her cardiology office. Records regarding her heart catheterization and subsequent bypass surgery been reviewed. Echocardiogram reveals preserved left ventricular systolic function with ejection fraction 50- 55%, mild MR, moderate TR and moderate pulmonary hypertension with an RVSP 57.82 mmHg. Objective - Vital Signs Vital signs: Vital Signs Temp 97.7 F 06/02/18 07:10 Pulse 68 06/02/18 11:08 Resp 16 06/02/18 08:00 BP 130/65 06/02/18 07:10 Pulse Ox 94 L 06/02/18 07:10 Intake & Output 06/01/18 06/02/18 06/02/18 18:59 06:59 18:59 Weight 151.5 kg 151.7 kg Other: Voiding Method Bedside Commode # Voids 3 2 # Bowel Movements 1 - Exam GENERAL: Well-appearing, well-nourished and in no acute distress. NECK: Supple without JVD or thyromegaly. LUNGS: Breath sounds clear to auscultation bilaterally. Respiration equal and unlabored. No wheezes, rales or rhonchi. HEART: Regular rate and rhythm with murmur left sternal border, no rubs or gallops. S1 and S2 heard. EXTREMITIES: Normal range of motion, 2+ bilateral lower extremity pitting edema left greater than right significant erythema bilaterally. No clubbing or cyanosis. Peripheral pulses intact. - Labs CBC & Chem 7: 06/02/18 07:33 06/02/18 07:33 Labs: Abnormal Lab Results - Last 24 Hours (Table) 06/01/18 06/01/18 06/01/18 Range/Units 12:27 16:52 20:47 RBC (3.80-5.40) m/uL Hgb (11.4-16.0) gm/dL Hct (34.0-46.0) % MCHC (31.0-37.0) g/dL RDW (11.5-15.5) % Lymphocytes # (1.0-4.8) k/uL Chloride (98-107) mmol/L BUN (7-17) mg/dL Creatinine (0.52-1.04) mg/dL Glucose (74-99) mg/dL POC Glucose (mg/dL) 175 H 178 H 155 H (75-99) mg/dL Calcium (8.4-10.2) mg/dL 06/02/18 06/02/18 06/02/18 Range/Units 07:09 07:33 07:33 RBC 3.24 L (3.80-5.40) m/uL Hgb 8.8 L (11.4-16.0) gm/dL Hct 29.6 L (34.0-46.0) % MCHC 29.6 L (31.0-37.0) g/dL RDW 17.2 H (11.5-15.5) % Lymphocytes # 0.8 L (1.0-4.8) k/uL Chloride 110 H (98-107) mmol/L BUN 49 H (7-17) mg/dL Creatinine 1.90 H (0.52-1.04) mg/dL Glucose 121 H (74-99) mg/dL POC Glucose (mg/dL) 126 H (75-99) mg/dL Calcium 8.2 L (8.4-10.2) mg/dL 06/02/18 Range/Units 12:02 RBC (3.80-5.40) m/uL Hgb (11.4-16.0) gm/dL Hct (34.0-46.0) % MCHC (31.0-37.0) g/dL RDW (11.5-15.5) % Lymphocytes # (1.0-4.8) k/uL Chloride (98-107) mmol/L BUN (7-17) mg/dL Creatinine (0.52-1.04) mg/dL Glucose (74-99) mg/dL POC Glucose (mg/dL) 183 H (75-99) mg/dL Calcium (8.4-10.2) mg/dL Microbiology - Last 24 Hours (Table) 05/30/18 18:41 Gram Stain - Final Leg - Left Wound Culture - Final Presumptive Staph aureus 05/30/18 18:41 Blood Culture - Preliminary Blood No Growth after 48 hours 05/31/18 05:00 Urine Culture - Final Urine,Clean Catch Assessment and Plan Assessment: ASSESSMENT Cellulitis Urinary tract infection Pulmonary hypertension, RVSP 50.34 on last echocardiogram Acute on chronic kidney disease, GFR 26. Stage IV. Hyperkalemia Hypermagneemia History of coronary artery disease status post bypass grafting 2013 History of ischemic cardiomyopathy Hypertension Dyslipidemia, controlled on atorvastatin Diabetes mellitus Anemia Morbid obesity, BMI 57.3 PLAN Check TSH and free T4. Discontinue amiodarone and Plavix. Patient does have an elevated proBNP with no clear overt heart failure. Lower extremity edema chronic and secondary to cellulitis as well as physical deconditioning. There may be a component of chronic diastolic dysfunction, echo will be obtained and reviewed. Ongoing telemetry monitoring. Further recommendations to follow based upon clinical course. Nurse Practitioner note has been reviewed, I agree with a documented findings and plan of care. Patient was seen and examined.
[2018-06-02] MEDS ORDERED: DAPTOmycin 500 MG in SODIUM CHLORIDE 0.9% 50 ML IVPB SCH (16:00)
--- NOTE | 2018-06-02 16:55 | PN ---
PROGRESS NOTE DATE OF SERVICE: 06/02/2018. REASON FOR FOLLOWUP: Left posterior leg wound with secondary cellulitis. INTERVAL HISTORY: The patient is currently afebrile. She is breathing comfortably. Still complains of pain to the left posterior leg area. Dressing has been changed by the RN and did mention some serosanguineous drainage, but less erythema. Denies any chest pain, shortness of breath or cough. EXAMINATION: Blood pressure 130/65 with a pulse of 63. Temperature 97.7. She is 94% on room air. General description is a middle-aged female up in the bed in no distress. RESPIRATORY SYSTEM: Unlabored breathing. Clear to auscultation anteriorly. HEART: S1, S2. Regular rate and rhythm. ABDOMEN: Soft. No tenderness. Left leg is currently dressed with no drainage on the dressing. LABS: Hemoglobin is 8.8, white count 8.1 with a BUN of 49, creatinine 1.90. The left leg wound culture showing presumptive Staph aureus. DIAGNOSTIC IMPRESSION AND PLAN: Patient with acute left lower extremity venostasis ulcer with secondary cellulitis. Culture now suspicious for Staph aureus. We will add daptomycin to cover for possible MRSA. Continue the Unasyn. Discharge antibiotic will depend on sensitivity of this pathogen. Local care to continue with Aquacel silver dressing. Continue supportive care. MMODL / IJN: [id number] /
[2018-06-02 17:30] LABS: Glucose,Whole Blood 190 mg/dL (75-99)
--- NOTE | 2018-06-02 18:03 | P.PN ---
Subjective Progress Note Date: 06/02/18 PROGRESS NOTE being dictated for Dr. Heard. General history:57-year-old female present with increased pain over her left leg , swelling concerning for worsening cellulitis. Patient reports she is seen by her visiting nurse today and states that her cellulitis increased. Patient states she's been having a difficult time ambulating and very weak. She does have a history of kidney failure. Patient denied any shortness of breath orthopnea PND patient does have history of a severe pulmonary hypertension and right-sided heart failure, cor pulmonale and chronic lower limb swelling and cellulitis in the past. Patient does having Redness with local is of temperature mostly in the left leg. Patient does have chronic venous stasis dermatosis morbidly obese denied any history of sleep apnea. Did have a multiple episodes of the cellulitis in the past with skin breakdown patient does have skin breakdown in bilateral lower limbs and does have an a sharp in the l posterior aspect of the left leg. Patient denied any fever chills. Patient was started on Zosyn which was discussed in patient was started on IV vancomycin infectious disease will be consulted patient will need local wound care. Patient is ibuprofen will be discontinued because the for renal function. Patient's creatinine has worsened a bit. Patient is getting both IV fluids and Lasix. Patient uses Lasix at home which will be continue to IV fluids were discontinued at this time. Home care nursing is unable to care for her at home because of which she is requesting to go to subacute rehabilitation. We'll consult physical therapy and occupational therapy for further evaluation. Review of Systems REVIEW OF SYSTEMS: CONSTITUTIONAL: No fever, no malaise, no fatigue. HEENT: No recent visual problems or hearing problems. Denied any sore throat. CARDIOVASCULAR: No chest pain, orthopnea, PND, no palpitations, no syncope. PULMONARY: No shortness of breath, no cough, no hemoptysis. GASTROINTESTINAL: No diarrhea, no nausea, no vomiting, no abdominal pain. Normoactive bowel sounds. NEUROLOGICAL: No headaches, no weakness, no numbness. HEMATOLOGICAL: Denies any bleeding or petechiae. GENITOURINARY: Denies any burning micturition, frequency, or urgency. MUSCULOSKELETAL/RHEUMATOLOGICAL: Denies any joint pain, swelling, or any muscle pain. ENDOCRINE: Denies any polyuria or polydipsia. The rest of the 14-point review of systems is negative. 06/01/2018 sitting up in chair, no acute distress. Worsening renal function this morning. Lasix discontinued. Potassium 5.5. Mild hyperglycemia in the cap coverer hours. Afebrile. Mild Bilateral leg pain. Maintained on IV antibiotics as per infectious disease. Preliminary wound culture reporting multiple organisms. Good diet intake, no nausea, vomiting or diarrhea. Evaluated by vascular surgery, recommendations noted. 06/02/2018 maintained on IV antibiotics as per infectious disease. Complains of left leg pain, improving. Afebrile. Wound culture reporting presumptive staph aureus. Daptomycin added to antibiotic regimen.Decreasing Erythema and serosanguineous drainage reported with dressing change.Lasix discontinued, patient received 1 L of IV fluid yesterday with renal function, potassium improving. yesterday decreased Levemir and premeal insulin, given mild hypoglycemia ; blood sugars better controlled today.Denies chest pain, palpitations or increased shortness of breath. Objective - Vital Signs Vital signs: Vital Signs Temp 97.8 F 06/02/18 15:00 Pulse 69 06/02/18 16:11 Resp 18 06/02/18 15:00 BP 132/69 06/02/18 15:00 Pulse Ox 96 06/02/18 15:00 Intake & Output 06/01/18 06/02/18 06/02/18 18:59 06:59 18:59 Intake Total 850 Balance 850 Weight 151.5 kg 151.7 kg Intake: Oral 850 Other: Voiding Method Bedside Commode # Voids 3 2 1 # Bowel Movements 1 - Exam GENERAL: The patient is sitting up in bed, alert and oriented x3, not in any acute distress. HEENT: Pupils are round and equally reacting to light. EOMI. No scleral icterus. No conjunctival pallor. Normocephalic, atraumatic. CARDIOVASCULAR: S1 and S2 present. Systolic murmur, no rubs, or gallops. PULMONARY: Chest is clear to auscultation, no wheezing or crackles. ABDOMEN: Soft, nontender, nondistended, normoactive bowel sounds. No palpable organomegaly. EXTREMITIES: Chronic stasis ulcers of Bilateral lower legs, positive edema, Yusuf wrapped, clean, dry and intact. NEUROLOGICAL: Gross neurological examination did not reveal any focal deficits. - Labs CBC & Chem 7: 06/02/18 07:33 06/02/18 07:33 Labs: Abnormal Lab Results - Last 24 Hours (Table) 06/01/18 06/02/18 06/02/18 Range/Units 20:47 07:09 07:33 RBC 3.24 L (3.80-5.40) m/uL Hgb 8.8 L (11.4-16.0) gm/dL Hct 29.6 L (34.0-46.0) % MCHC 29.6 L (31.0-37.0) g/dL RDW 17.2 H (11.5-15.5) % Lymphocytes # 0.8 L (1.0-4.8) k/uL Chloride (98-107) mmol/L BUN (7-17) mg/dL Creatinine (0.52-1.04) mg/dL Glucose (74-99) mg/dL POC Glucose (mg/dL) 155 H 126 H (75-99) mg/dL Calcium (8.4-10.2) mg/dL 06/02/18 06/02/18 06/02/18 Range/Units 07:33 12:02 17:29 RBC (3.80-5.40) m/uL Hgb (11.4-16.0) gm/dL Hct (34.0-46.0) % MCHC (31.0-37.0) g/dL RDW (11.5-15.5) % Lymphocytes # (1.0-4.8) k/uL Chloride 110 H (98-107) mmol/L BUN 49 H (7-17) mg/dL Creatinine 1.90 H (0.52-1.04) mg/dL Glucose 121 H (74-99) mg/dL POC Glucose (mg/dL) 183 H 190 H (75-99) mg/dL Calcium 8.2 L (8.4-10.2) mg/dL Microbiology - Last 24 Hours (Table) 05/30/18 18:41 Gram Stain - Final Leg - Left Wound Culture - Final Presumptive Staph aureus 05/30/18 18:41 Blood Culture - Preliminary Blood No Growth after 48 hours 05/31/18 05:00 Urine Culture - Final Urine,Clean Catch Assessment and Plan Assessment: -Cellulitis of the left leg , chronic venous stasis dermatosis of bilateral legs. Cultures reporting presumptive staph aureus -Generalized deconditioning secondary to multiple medical problems and morbid obesity, BMI 57 -Chronic kidney disease stage III -Hyperlipidemia -Pulmonary hypertension and chronic cor pulmonale -Possible chronic diastolic dysfunction without any acute exacerbation -Type 2 diabetes mellitus with diabetic nephropathy -Gastric esophageal reflux disease -Hypertension -About arthritis -Coronary artery disease with CABG in the past -Hyperkalemia Plan: Continue on current medication regime ,monitoring and symptomatic treatment. Maintain IV antibiotics of Unasyn and daptomycin as per infectious disease. Mild hypoglycemia early this morning, Levemir and pre-meal insulin doses decreased. Close monitoring of Accu-Cheks. Close monitoring of renal function, electrolytes with repeat labs ordered for a.m. Discharge planning in progress to subacute rehab possibly tomorrow, pending finalization of cultures. The impression and plan of care has been dictated as directed. : I performed a history and examination of this patient, discussed the same with the dictator. I agree with the dictator's note ,documented as a scribe. Any additional findings or plans will be noted.
[2018-06-02] MEDS: HYDROcodone/APAP 5-325MG 1 EACH TAB PO PRN (20:07)
[2018-06-02] MEDS: GABAPENTIN 300 MG CAP PO SCH (20:12)
[2018-06-02 21:13] LABS: Glucose,Whole Blood 192 mg/dL (75-99)
[2018-06-02] MEDS: INSULIN DETEMIR 100 UNIT/ML 10 ML VIAL SQ SCH (23:33)
[2018-06-03 00:30] VITALS: RESP 16
[2018-06-03 06:54] VITALS: BP 161/72; TEMP 98.5
[2018-06-03] MEDS: ALBUTEROL NEBULIZED 2.5 MG/3 ML INHALATION SCH ×2 (07:17→10:55)
[2018-06-03] MEDS: SYMBICORT 160-4.5 MCG INHALER INHALATION SCH (07:17)
[2018-06-03 07:22] LABS: Glucose,Whole Blood 159 mg/dL (75-99)
[2018-06-03] MEDS: PANTOPRAZOLE 40 MG TABLET PO SCH (08:14)
[2018-06-03] MEDS: INSULIN ASPART 100 UNIT/ML 1 ML 10 ML VIAL SQ SCH ×2 (08:14→11:56)
[2018-06-03] MEDS: CARVEDILOL 3.125 MG TAB PO SCH (08:14)
[2018-06-03] MEDS: FERROUS SULFATE 325 MG TAB PO SCH (08:15)
[2018-06-03] MEDS: ASPIRIN 81 MG PO SCH (08:15)
--- NOTE | 2018-06-03 09:44 | P.PN ---
Subjective Miss Mendez is seen and examined resting comfortably in bed in no acute distress. She denies symptoms of chest pain, shortness of breath, palpitations or dizziness. Lower extremity swelling is ongoing and rolando wraps are in place bilaterally. She states the tightness in her legs does seem to be lessening slightly. Telemetry tracings indicate sinus mechanism. Office notes from Dr. Vasquez reviewed. Amiodarone and plavix have both been discontinued. Blood pressure 161/72 heart rate 69 afebrile maintaining oxygen saturation on room air. Laboratory data pending. Objective - Vital Signs Vital signs: Vital Signs Temp 98.5 F 06/03/18 06:54 Pulse 68 06/03/18 07:29 Resp 16 06/03/18 06:54 BP 161/72 06/03/18 06:54 Pulse Ox 93 L 06/03/18 06:54 Intake & Output 06/02/18 06/03/18 06/03/18 18:59 06:59 18:59 Intake Total 850 Balance 850 Weight 121 kg Intake: Oral 850 Other: Voiding Method Bedside Commode # Voids 1 1 # Bowel Movements 0 - Exam GENERAL: Well-appearing, well-nourished and in no acute distress. NECK: Supple without JVD or thyromegaly. LUNGS: Breath sounds clear to auscultation bilaterally. Respiration equal and unlabored. No wheezes, rales or rhonchi. HEART: Regular rate and rhythm with murmur left sternal border, no rubs or gallops. S1 and S2 heard. EXTREMITIES: Normal range of motion, 2+ bilateral lower extremity pitting edema left greater than right, bilateral rolando wraps in place. No clubbing or cyanosis. Peripheral pulses intact. - Labs CBC & Chem 7: 06/02/18 07:33 06/02/18 07:33 Labs: Abnormal Lab Results - Last 24 Hours (Table) 06/02/18 06/02/18 06/02/18 Range/Units 12:02 17:29 21:09 POC Glucose (mg/dL) 183 H 190 H 192 H (75-99) mg/dL 06/03/18 Range/Units 07:21 POC Glucose (mg/dL) 159 H (75-99) mg/dL Microbiology - Last 24 Hours (Table) 05/30/18 18:41 Blood Culture - Preliminary Blood No Growth after 72 hours 05/30/18 18:41 Gram Stain - Final Leg - Left Wound Culture - Final Presumptive Staph aureus Assessment and Plan Assessment: ASSESSMENT Cellulitis Urinary tract infection Pulmonary hypertension, RVSP 50.34 on last echocardiogram Acute on chronic kidney disease, GFR 26. Stage IV. Hyperkalemia Hypermagneemia History of coronary artery disease status post bypass grafting 2013 History of ischemic cardiomyopathy Hypertension Dyslipidemia, controlled on atorvastatin Diabetes mellitus Anemia Morbid obesity, BMI 57.3 PLAN Stable from a cardiac perspective. Follow up with Dr. Smith in 2 weeks. No evidence of arrhythmia, plavix and amiodarone discontinued. Nurse Practitioner note has been reviewed, I agree with a documented findings and plan of care. Patient was seen and examined.
[2018-06-03 10:13] LABS: Calcium 8.1 mg/dL (8.4-10.2); Potassium 5.2 mmol/L (3.5-5.1)
[2018-06-03 10:15] LABS: Anisocytosis Slight; Basophils % (A) 0 %; Eosinophils # (A) 0.2 k/uL (0-0.7); Eosinophils % (A) 2 %; HCT 29.9 % (34.0-46.0); HGB 8.8 gm/dL (11.4-16.0); Hypochromasia Marked; Lymphocytes # (A) 0.8 k/uL (1.0-4.8); Lymphocytes % (A) 10 %; MCH 26.7 pg (25.0-35.0); MCHC 29.3 g/dL (31.0-37.0); Mean Platelet Volume 6.9; Monocytes # (A) 0.4 k/uL (0-1.0); Monocytes % (A) 5 %; Neutrophils # (A) 6.4 k/uL (1.3-7.7); Neutrophils % (A) 81 %; Platelet Count 302 k/uL (150-450); RBC 3.29 m/uL (3.80-5.40); RDW 17.6 % (11.5-15.5)
[2018-06-03] MEDS: HYDROcodone/APAP 5-325MG 1 EACH TAB PO PRN (10:51)
[2018-06-03 10:56] VITALS: PULSE 72
--- NOTE | 2018-06-03 11:16 | P.DS ---
Providers Date of admission: 05/30/18 20:59 Expected date of discharge: 06/03/18 Attending physician: Santiago Darling Consults: 05/30/18 21:11 Consult Physician Stat Consulting Provider: Hussein Brice Consult Reason/Comments: L leg Cellulitis, L leg eschar R foot eschar Do you want consulting provider notified?: Yes 05/31/18 13:47 Consult Physician Routine Consulting Provider: Donavan Gibbs Consult Reason/Comments: Cellulitis Do you want consulting provider notified?: Yes 05/31/18 15:05 Consult Physician Routine Consulting Provider: Sunny Solomon Consult Reason/Comments: wound care Do you want consulting provider notified?: Yes 06/01/18 10:54 Consult Physician Routine Consulting Provider: Ludwig Guerrier Consult Reason/Comments: chf Do you want consulting provider notified?: Yes Primary care physician: [facility] Course: Final Diagnoses: -Cellulitis of the left leg , chronic venous stasis dermatosis of bilateral legs. Cultures reporting presumptive staph aureus -Generalized deconditioning secondary to multiple medical problems and morbid obesity, BMI 57 -Chronic kidney disease stage III -Hyperlipidemia -Pulmonary hypertension and chronic cor pulmonale -Possible chronic diastolic dysfunction without any acute exacerbation -Type 2 diabetes mellitus with diabetic nephropathy -Gastric esophageal reflux disease -Hypertension -About arthritis -Coronary artery disease with CABG in the past -Hyperkalemia Hospital course:57-year-old female present with increased pain over her left leg , swelling concerning for worsening cellulitis. Patient reports she is seen by her visiting nurse today and states that her cellulitis increased. Patient states she's been having a difficult time ambulating and very weak. She does have a history of kidney failure. Patient denied any shortness of breath orthopnea PND patient does have history of a severe pulmonary hypertension and right-sided heart failure, cor pulmonale and chronic lower limb swelling and cellulitis in the past. Patient does having Redness with local is of temperature mostly in the left leg. Patient does have chronic venous stasis dermatosis morbidly obese denied any history of sleep apnea. Did have a multiple episodes of the cellulitis in the past with skin breakdown patient does have skin breakdown in bilateral lower limbs and does have an a sharp in the l posterior aspect of the left leg. Patient denied any fever chills. Patient was started on Zosyn which was discussed in patient was started on IV vancomycin infectious disease will be consulted patient will need local wound care. Patient is ibuprofen will be discontinued because the for renal function. Patient's creatinine has worsened a bit. Patient is getting both IV fluids and Lasix. Patient uses Lasix at home which will be continue to IV fluids were discontinued at this time. Home care nursing is unable to care for her at home because of which she is requesting to go to subacute rehabilitation. We'll consult physical therapy and occupational therapy for further evaluation. 06/01/2018 Worsening renal function this morning. Lasix discontinued. Potassium 5.5. Mild hyperglycemia in the scraper hand hours. Afebrile. Mild Bilateral leg pain. Maintained on IV antibiotics as per infectious disease. Preliminary wound culture reporting multiple organisms. Good diet intake, no nausea, vomiting or diarrhea. Evaluated by vascular surgery, recommendations noted. 06/02/2018 maintained on IV antibiotics as per infectious disease. Complains of left leg pain, improving. Afebrile. Wound culture reporting presumptive staph aureus. Daptomycin added to antibiotic regimen.Decreasing Erythema and serosanguineous drainage reported with dressing change.Lasix discontinued, patient received 1 L of IV fluid yesterday with renal function, potassium improving. yesterday decreased Levemir and premeal insulin, given mild hypoglycemia ; blood sugars better controlled today. 06/03/2018 cleared by all Consults for discharge. Patient is being discharged to [facility] in a stable condition with guarded prognosis. Exam GENERAL: alert and oriented x3, no acute distress. CARDIOVASCULAR: S1 and S2 present. Systolic murmur, no rubs, or gallops. PULMONARY: Chest is clear to auscultation, no wheezing or crackles. ABDOMEN: Soft, nontender, nondistended, normoactive bowel sounds. EXTREMITIES: Chronic stasis ulcers of Bilateral lower legs, positive edema, Yusuf wrapped, clean, dry and intact. NEUROLOGICAL: Gross neurological examination did not reveal any focal deficits. Microbiology 05/30/18 18:41 Blood Blood Culture - Preliminary No Growth after 72 hours 05/30/18 18:41 Leg - Left Gram Stain - Final 05/30/18 18:41 Leg - Left Wound Culture - Final Presumptive Staph aureus 05/31/18 05:00 Urine,Clean Catch Urine Culture - Final The impression and plan of care has been dictated as directed. : I performed a history and examination of this patient, discussed the same with the dictator. I agree with the dictator's note ,documented as a scribe. Any additional findings or plans will be noted. Time taken: 35 minute Patient Condition at Discharge: Stable Plan - Discharge Summary New Discharge Prescriptions: New Acetaminophen Tab [Tylenol] 650 mg PO Q6HR PRN tab PRN Reason: Mild Pain Or Fever > 100.5 Aspirin 81 mg PO DAILY chew Famotidine [Pepcid] 20 mg PO BID #1 tablet Insulin Aspart [NovoLOG (formulary)] 5 unit SQ AC-TID vial INSULIN LISPRO (HumaLOG) [humaLOG] 0 unit SQ ACHS #1 vial Continue Ferrous Sulfate [Iron (65 MG Elemental)] 325 mg PO BID Albuterol Sulfate [Proair Hfa] 2 puff INHALATION RT-QID Atorvastatin [Lipitor] 20 mg PO HS Gabapentin [Neurontin] 300 mg PO HS #0 Amoxic-Pot Clav 875-125Mg [Augmentin 875-125] 1 tab PO Q12HR Budesonide-Formot 160-4.5 Mcg [Symbicort 160-4.5 Mcg Inhaler] 2 puff INHALATION RT-BID Carvedilol [Coreg] 3.125 mg PO BID traMADol HCL [Ultram] 50 mg PO TID PRN #9 tablet PRN Reason: Pain Changed Insulin Detemir [Levemir Flextouch] 36 units SQ HS #0 Discontinued Clopidogrel [Plavix] 75 mg PO DAILY Insulin Aspart [NovoLOG Flexpen] 10 units SQ TID Amiodarone [Cordarone] 200 mg PO DAILY #0 Pantoprazole [Protonix] 40 mg PO BID Furosemide [Lasix] 40 mg PO BID Discharge Medication List Albuterol Sulfate [Proair Hfa] 2 puff INHALATION RT-QID 02/18/18 [History] Atorvastatin [Lipitor] 20 mg PO HS 02/18/18 [History] Ferrous Sulfate [Iron (65 MG Elemental)] 325 mg PO BID 02/18/18 [History] Gabapentin [Neurontin] 300 mg PO HS #0 02/23/18 [Rx] Amoxic-Pot Clav 875-125Mg [Augmentin 875-125] 1 tab PO Q12HR 05/30/18 [History] Budesonide-Formot 160-4.5 Mcg [Symbicort 160-4.5 Mcg Inhaler] 2 puff INHALATION RT-BID 05/30/18 [History] Carvedilol [Coreg] 3.125 mg PO BID 05/30/18 [History] Acetaminophen Tab [Tylenol] 650 mg PO Q6HR PRN tab 06/02/18 [Rx] Aspirin 81 mg PO DAILY chew 06/02/18 [Rx] Famotidine [Pepcid] 20 mg PO BID #1 tablet 06/02/18 [Rx] INSULIN LISPRO (HumaLOG) [humaLOG] 0 unit SQ ACHS #1 vial 06/02/18 [Rx] Insulin Aspart [NovoLOG (formulary)] 5 unit SQ AC-TID vial 06/02/18 [Rx] Insulin Detemir [Levemir Flextouch] 36 units SQ HS #0 06/02/18 [Rx] traMADol HCL [Ultram] 50 mg PO TID PRN #9 tablet 06/02/18 [Rx] Follow up Appointment(s)/Referral(s): Sha Smith MD [STAFF PHYSICIAN] - [facility] [NON-STAFF] - 06/08/18 2:00 pm () Arnol Santiago MD [Primary Care Provider] - 3 Days () Patient Instructions/Handouts: Type 2 Diabetes in Adults (DC) Activity/Diet/Wound Care/Special Instructions: [facility] antibiotics as per ID confirm cardiology follow- up appointment prior to discharge, follow up in the wound care center weekly as scheduled Diet: Consistent carb Activity: As tolerated. Keep legs elevated higher than the level of the heart whenever not ambulating, sitting up to eat, or toileting. Dressings to bilateral lower extremities: absorptive silver to bilateral lower extremity wounds, change Mondays and Fridays with dressing change to be completed on Wednesdays in the wound care center by Dr. Solomon. Yusuf Wraps to bilateral lower extremities from toes to knees at all times. CBC, BMP in 3 days Discharge Disposition: TRANSFER TO SNF/ECF
[2018-06-03 11:38] LABS: Glucose,Whole Blood 166 mg/dL (75-99)
[2018-06-03] MEDS: AMPICILLIN-SULBACTAM 3 GM in SODIUM CHLORIDE 0.9% 100 ML IVPB SCH (11:56)
--- NOTE | 2018-06-03 17:41 | PN ---
PROGRESS NOTE DATE OF SERVICE: 06/03/2018 REASON FOR FOLLOWUP: Left lateral leg venostasis ulcer with secondary cellulitis. INTERVAL HISTORY: The patient is currently afebrile. She is breathing comfortably. Denies having any chest pain, shortness of breath or cough. No abdominal pain or any worsening pain to the left posterior leg area. PHYSICAL EXAMINATION: Blood pressure 151/72 with a pulse of 59, temperature 98.5. She is 93% on room air. General description is a middle-aged female up in the bed in no distress. RESPIRATORY SYSTEM: Unlabored breathing. Clear to auscultation anteriorly. HEART: S1, S2. Regular rate and rhythm. ABDOMEN: Soft. No tenderness. Left posterior leg wound with no slough tissue. Surrounding redness has much improved. Slight bleeding on removal of the dressing. LABS: Hemoglobin 8.8, white count 8.0, BUN of 42, creatinine 2.04. DIAGNOSTIC IMPRESSION AND PLAN: Patient with left posterior leg venostasis ulcer with secondary cellulitis. Wound culture with presumptive Staphylococcus aureus. Antibiotics in the form of Augmentin and doxycycline were recommended, as the patient is already being discharged by the admitting team with local wound care with Aquacel Silver dressing and Yusuf wrap and followup in the office. Continue with supportive care. MMODL / IJN: [id number] /
== END 2018-06-03 14:22 | DRG 603 ==
LOC: EC 17:03 → 4MS4W 20:59
PROVIDERS: ADMIT Hospitalist; ATTEND Hospitalist
DX: L03.116 Cellulitis of left lower limb (principal); I50.32 Chronic diastolic (congestive) heart failure; Z68.43 Body mass index [BMI] 50.0-59.9, adult; I13.0 Hypertensive heart and chronic kidney disease with heart failure and stage 1 through stage 4 chronic kidney disease, or unspecified chronic kidney disease; L97.221 Non-pressure chronic ulcer of left calf limited to breakdown of skin; N39.0 Urinary tract infection, site not specified; E11.21 Type 2 diabetes mellitus with diabetic nephropathy; E11.40 Type 2 diabetes mellitus with diabetic neuropathy, unspecified; I27.29 Other secondary pulmonary hypertension; E66.01 Morbid (severe) obesity due to excess calories; I27.81 Cor pulmonale (chronic); E11.22 Type 2 diabetes mellitus with diabetic chronic kidney disease; E11.622 Type 2 diabetes mellitus with other skin ulcer; E11.649 Type 2 diabetes mellitus with hypoglycemia without coma; E87.5 Hyperkalemia; E11.65 Type 2 diabetes mellitus with hyperglycemia; N18.3 Chronic kidney disease, stage 3 (moderate); B95.61 Methicillin susceptible Staphylococcus aureus infection as the cause of diseases classified elsewhere; I83.022 Varicose veins of left lower extremity with ulcer of calf; I89.0 Lymphedema, not elsewhere classified; I25.5 Ischemic cardiomyopathy; D64.9 Anemia, unspecified; F32.9 Major depressive disorder, single episode, unspecified; I25.10 Atherosclerotic heart disease of native coronary artery without angina pectoris; I44.0 Atrioventricular block, first degree; M19.91 Primary osteoarthritis, unspecified site; L98.9 Disorder of the skin and subcutaneous tissue, unspecified; K21.9 Gastro-esophageal reflux disease without esophagitis; M06.9 Rheumatoid arthritis, unspecified; E78.5 Hyperlipidemia, unspecified; M54.9 Dorsalgia, unspecified; G89.29 Other chronic pain; I25.2 Old myocardial infarction; K80.20 Calculus of gallbladder without cholecystitis without obstruction; F40.240 Claustrophobia; Z79.02 Long term (current) use of antithrombotics/antiplatelets; Z79.51 Long term (current) use of inhaled steroids; Z79.4 Long term (current) use of insulin; Z79.899 Other long term (current) drug therapy; Z86.19 Personal history of other infectious and parasitic diseases; Z95.1 Presence of aortocoronary bypass graft; Z87.891 Personal history of nicotine dependence; Z82.49 Family history of ischemic heart disease and other diseases of the circulatory system; Z82.0 Family history of epilepsy and other diseases of the nervous system; Z84.1 Family history of disorders of kidney and ureter; Z99.3 Dependence on wheelchair
CPT/HCPCS: 36415; 71046; 74018; 80048; 80053; 80061; 81001; 82150; 83605; 83690; 83735; 83880; 84443; 84484; 85025; 85610; 85730; 87040; 87070; 87086; 87205; 93005; 93306; 94640; 96361; 96365; 96375; 99285

== ENCOUNTER 2018-08-17 17:17 | Inpatient (IN) | payer MEDICARE, OTHER ==
[2018-08-17] MEDS ORDERED: SODIUM CHLORIDE 0.9% 1,000 ML IV STA ×2 (17:51→17:52)
[2018-08-17] MEDS ORDERED: PIPERACILLIN-TAZOBACTAM 3.375 GM in SODIUM CHLORIDE 0.9% 100 ML IVPB STA (17:52)
[2018-08-17] MEDS ORDERED: VANCOMYCIN IV PER PHARMACY 1 EACH MISC MISCELLANE PRN (17:52)
[2018-08-17] MEDS ORDERED: VANCOMYCIN 2,500 MG in SODIUM CHLORIDE 0.9% 500 ML 500 ML IVPB STA (17:59)
[2018-08-17 18:25] LABS: Anisocytosis Slight; Basophils # (A) 0.1 k/uL (0-0.2); Basophils % (A) 1 %; Eosinophils # (A) 0.4 k/uL (0-0.7); Eosinophils % (A) 4 %; HCT 31.5 % (34.0-46.0); Hypochromasia Moderate; Lymphocytes # (A) 1.1 k/uL (1.0-4.8); Lymphocytes % (A) 11 %; MCH 28.4 pg (25.0-35.0); MCHC 31.9 g/dL (31.0-37.0); MCV 88.9 fL (80.0-100.0); Mean Platelet Volume 6.7; Monocytes # (A) 0.6 k/uL (0-1.0); Monocytes % (A) 6 %; Neutrophils # (A) 7.2 k/uL (1.3-7.7); Neutrophils % (A) 77 %; Platelet Count 341 k/uL (150-450); RBC 3.54 m/uL (3.80-5.40); RDW 16.6 % (11.5-15.5); WBC 9.4 k/uL (3.8-10.6)
[2018-08-17 18:30] LABS: Albumin 3.4 g/dL (3.5-5.0); Calcium 8.8 mg/dL (8.4-10.2); Potassium 5.9 mmol/L (3.5-5.1); Total Bilirubin 0.5 mg/dL (0.2-1.3); Total Protein 6.6 g/dL (6.3-8.2)
--- NOTE | 2018-08-17 18:30 | ED ---
General Adult HPI - General Chief complaint: Skin/Abscess/Foreign Body Stated complaint: wound on left leg Time Seen by Provider: 08/17/18 17:38 Source: patient, EMS, RN notes reviewed Mode of arrival: EMS Limitations: no limitations - History of Present Illness Initial comments: Patient 57-year-old female presents emergency room today by EMS, with a chief complaint infection to the left lower extremity. Patient does admit that she's had a chronic wound that she's been dealing with over the last year. She states that she recently had increased redness swelling. She states she was on oral antibiotics that she finished 5 days ago. Patient states the area of redness swelling has been increasing. She's had increased drainage and weeping coming from the left lower leg. She does follow-up with the wound clinic. She states she sees infectious disease Dr. Saucedo. Patient does admit that she was advised come here to the emergency room today because of her symptoms. Patient denies any other complaints currently. Patient denies any recent fever, chills , shortness of breath, chest pain, back pain, abdominal pain, nausea or vomiting , headaches or visual changes, or any other complaints. - Related Data Home Medications Medication Instructions Recorded Confirmed Albuterol Sulfate [Proair Hfa] 2 puff INHALATION RT-QID PRN 02/18/18 08/17/18 Atorvastatin [Lipitor] 20 mg PO HS 02/18/18 08/17/18 Budesonide-Formot 160-4.5 Mcg 2 puff INHALATION RT-BID 05/30/18 08/17/18 [Symbicort 160-4.5 Mcg Inhaler] Carvedilol [Coreg] 12.5 mg PO BID 08/17/18 08/17/18 Clopidogrel [Plavix] 75 mg PO DAILY 08/17/18 08/17/18 Insulin Aspart [NovoLOG See Protocol SQ AC-TID 08/17/18 08/17/18 (formulary)] Insulin Detemir [Levemir Flextouch] 30 units SQ HS 08/17/18 08/17/18 Previous Rx's Medication Instructions Recorded Gabapentin [Neurontin] 300 mg PO HS #0 02/23/18 Aspirin 81 mg PO DAILY chew 06/02/18 Allergies Allergy/AdvReac Type Severity Reaction Status Date / Time No Known Allergies Allergy Verified 08/17/18 17:40 Review of Systems ROS Statement: Those systems with pertinent positive or pertinent negative responses have been documented in the HPI. ROS Other: All systems not noted in ROS Statement are negative. Past Medical History Past Medical History: Diabetes Mellitus, GERD/Reflux, Hyperlipidemia, Hypertension, Myocardial Infarction (CO), Rheumatoid Arthritis (RA) Additional Past Medical History / Comment(s): neuropathy,edentulous, cellulitis lt leg,cataracats, past uterine cysts, "gallstones", chronic back pain.. "i've had a rash for this past year on shoulders,bra line and lt leg". Last Myocardial Infarction Date:: 2014 History of Any Multi-Drug Resistant Organisms: ESBL Date of last positivie culture/infection: 10/13/17 MDRO Source:: ESBL URINE Past Surgical History: Appendectomy, Section, Coronary Bypass/CABG Additional Past Surgical History / Comment(s): d&c,, x2, 2 vessel cabg ,?uterine ablation Past Anesthesia/Blood Transfusion Reactions: No Reported Reaction Additional Past Anesthesia/Blood Transfusion Reaction / Comment(s): clausterphobia Past Psychological History: Depression Smoking Status: Former smoker Past Alcohol Use History: None Reported Past Drug Use History: None Reported - Past Family History Mother Additional Family Medical History / Comment(s): anuerysm Father Family Medical History: Myocardial Infarction (CO) Sister(s) Additional Family Medical History / Comment(s): one sister had "hole in her heart" and a kidney transplant and another sister had ms. General Exam - General Exam Comments Initial Comments: General: The patient is awake and alert, in no distress, and does not appear acutely ill. Eye: Pupils are equal, round and reactive to light. Extra-ocular movements are intact. No nystagmus. There is normal conjunctiva bilaterally. No signs of icterus. Ears, nose, mouth and throat: There are moist mucous membranes and no oral lesions. Neck: The neck is supple, there is no tenderness or JVD. Cardiovascular: There is a regular rate and rhythm. No murmur, rub or gallop is appreciated. Respiratory: Lungs are clear to auscultation, respirations are non-labored, breath sounds are equal. No wheezes, stridor, rales, or rhonchi. Musculoskeletal: Normal ROM, no tenderness. Sensation intact. Strength 5/5. Dorsal pedal Pulses equal bilaterally 2+. Neurological: A&O x 3. CN II-XII intact, There are no obvious motor or sensory deficits. Coordination appears grossly intact. Speech is normal. Skin: Increased redness and warmth to the left lower extremity. There is no drainage and sloughing of skin. Psychiatric: Cooperative, appropriate mood & affect, normal judgment. Limitations: no limitations Course Vital Signs 08/17/18 08/17/18 08/17/18 17:30 17:31 18:30 Temperature 98.5 F Pulse Rate 60 Respiratory 18 Rate Blood Pressure 122/72 122/72 118/53 O2 Sat by Pulse 98 97 Oximetry Medical Decision Making - Medical Decision Making Patient reexamined central no signs of distress resting comfortable. Patient's labs been reviewed. Does show mildly elevated kidney function which is similar to previous. Patient started on Zosyn and vancomycin here in the emergency room. She will be admitted for outpatient failure left leg lower cellulitis. - Lab Data Result diagrams: 08/17/18 18:00 08/17/18 18:00 Lab Results 08/17/18 08/17/18 08/17/18 Range/Units 18:00 18:00 18:00 WBC 9.4 (3.8-10.6) k/uL RBC 3.54 L (3.80-5.40) m/uL Hgb 10.0 L (11.4-16.0) gm/dL Hct 31.5 L (34.0-46.0) % MCV 88.9 (80.0-100.0) fL MCH 28.4 (25.0-35.0) pg MCHC 31.9 (31.0-37.0) g/dL RDW 16.6 H (11.5-15.5) % Plt Count 341 (150-450) k/uL Neutrophils % 77 % Lymphocytes % 11 % Monocytes % 6 % Eosinophils % 4 % Basophils % 1 % Neutrophils # 7.2 (1.3-7.7) k/uL Lymphocytes # 1.1 (1.0-4.8) k/uL Monocytes # 0.6 (0-1.0) k/uL Eosinophils # 0.4 (0-0.7) k/uL Basophils # 0.1 (0-0.2) k/uL Hypochromasia Moderate Anisocytosis Slight PT (9.0-12.0) sec INR (<1.2) APTT (22.0-30.0) sec Sodium 138 (137-145) mmol/L Potassium 5.9 H (3.5-5.1) mmol/L Chloride 108 H (98-107) mmol/L Carbon Dioxide 24 (22-30) mmol/L Anion Gap 6 mmol/L BUN 71 H (7-17) mg/dL Creatinine 1.81 H (0.52-1.04) mg/dL Est GFR (CKD-EPI)AfAm 35 (>60 ml/min/1.73 sqM) Est GFR (CKD-EPI)NonAf 30 (>60 ml/min/1.73 sqM) Glucose 141 H (74-99) mg/dL POC Glucose (mg/dL) (75-99) mg/dL POC Glu Gift Wrapper ID Plasma Lactic Acid Sylvester 1.0 (0.7-2.0) mmol/L Calcium 8.8 (8.4-10.2) mg/dL Total Bilirubin 0.5 (0.2-1.3) mg/dL AST 15 (14-36) U/L ALT 23 (9-52) U/L Alkaline Phosphatase 117 (38-126) U/L Total Protein 6.6 (6.3-8.2) g/dL Albumin 3.4 L (3.5-5.0) g/dL Urine Color Urine Appearance (Clear) Urine pH (5.0-8.0) Ur Specific [place] (1.001-1.035) Urine Protein (Negative) Urine Glucose (UA) (Negative) Urine Ketones (Negative) Urine Blood (Negative) Urine Nitrite (Negative) Urine Bilirubin (Negative) Urine Urobilinogen (<2.0) mg/dL Ur Leukocyte Esterase (Negative) 08/17/18 08/17/18 08/17/18 Range/Units 18:00 18:26 19:29 WBC (3.8-10.6) k/uL RBC (3.80-5.40) m/uL Hgb (11.4-16.0) gm/dL Hct (34.0-46.0) % MCV (80.0-100.0) fL MCH (25.0-35.0) pg MCHC (31.0-37.0) g/dL RDW (11.5-15.5) % Plt Count (150-450) k/uL Neutrophils % % Lymphocytes % % Monocytes % % Eosinophils % % Basophils % % Neutrophils # (1.3-7.7) k/uL Lymphocytes # (1.0-4.8) k/uL Monocytes # (0-1.0) k/uL Eosinophils # (0-0.7) k/uL Basophils # (0-0.2) k/uL Hypochromasia Anisocytosis PT 10.2 (9.0-12.0) sec INR 1.0 (<1.2) APTT 24.2 (22.0-30.0) sec Sodium (137-145) mmol/L Potassium (3.5-5.1) mmol/L Chloride (98-107) mmol/L Carbon Dioxide (22-30) mmol/L Anion Gap mmol/L BUN (7-17) mg/dL Creatinine (0.52-1.04) mg/dL Est GFR (CKD-EPI)AfAm (>60 ml/min/1.73 sqM) Est GFR (CKD-EPI)NonAf (>60 ml/min/1.73 sqM) Glucose (74-99) mg/dL POC Glucose (mg/dL) 159 H (75-99) mg/dL POC Glu Gift Wrapper ID Saba Valladares Plasma Lactic Acid Sylvester (0.7-2.0) mmol/L Calcium (8.4-10.2) mg/dL Total Bilirubin (0.2-1.3) mg/dL AST (14-36) U/L ALT (9-52) U/L Alkaline Phosphatase (38-126) U/L Total Protein (6.3-8.2) g/dL Albumin (3.5-5.0) g/dL Urine Color Yellow Urine Appearance Clear (Clear) Urine pH 5.0 (5.0-8.0) Ur Specific [place] 1.016 (1.001-1.035) Urine Protein Trace H (Negative) Urine Glucose (UA) Negative (Negative) Urine Ketones Negative (Negative) Urine Blood Negative (Negative) Urine Nitrite Negative (Negative) Urine Bilirubin Negative (Negative) Urine Urobilinogen <2.0 (<2.0) mg/dL Ur Leukocyte Esterase Negative (Negative) Disposition Clinical Impression: Cellulitis, Failure of outpatient treatment Disposition: HOME SELF-CARE Condition: Good Is patient prescribed a controlled substance at d/c from ED?: No Referrals: Arnol Santiago MD [Primary Care Provider] - 1-2 days Time of Disposition: 20:01
[2018-08-17 18:31] LABS: Partial Thromboplastin Time 24.2 sec (22.0-30.0); Prothrombin Time 10.2 sec (9.0-12.0)
[2018-08-17 18:32] LABS: Appearance,Urine Clear (Clear); Bilirubin,Urine Negative (Negative); Blood,Urine Negative (Negative); Color,Urine Yellow; Glucose,Urine (UA) Negative (Negative); Ketones,Urine Negative (Negative); Leukocyte Esterase,Urine Negative (Negative); Nitrite,Urine Negative (Negative); Protein,Urine Trace (Negative); Specific Gravity,Urine 1.016 (1.001-1.035); Urobilinogen,Urine <2.0 mg/dL (<2.0)
[2018-08-17] MEDS ORDERED: traMADol 50 MG TAB PO STA (18:59)
[2018-08-17 19:34] LABS: Glucose,Whole Blood 159 mg/dL (75-99)
[2018-08-17] MEDS ORDERED: SODIUM POLYSTYRENE SULFONATE 15 GM/60 ML BOTTLE PO STA (19:58)
[2018-08-17] MEDS ORDERED: ONDANSETRON 4 MG/2 ML VIAL IVP PRN (20:02)
[2018-08-17] MEDS ORDERED: traMADol 50 MG TAB PO PRN (20:02)
[2018-08-17] MEDS ORDERED: NALOXONE 0.4 MG/ML 1 ML VIAL IV PRN (20:02)
[2018-08-17] MEDS ORDERED: ALBUTEROL NEBULIZED 2.5 MG/3 ML INHALATION PRN (22:36)
--- NOTE | 2018-08-17 23:07 | P.HPIM ---
History of Present Illness H&P Date: 08/17/18 Chief Complaint: left leg erythema , and pain 57-year-old female with history of chronic venous stasis dermatosis of bilateral legs. Diastolic CHF, CK D. Diabetes mellitus Patient presented to the hospital due to worsening erythema pain and swelling of the left lower extremity. Patient has chronic history of venous stasis and chronic dermatosis of bilateral legs, recently she was hospitalized for cellulitis of the left leg and generalized deconditioning. Patient denies any recent injuries to the left leg however she has missed her most recent appointment at the wound clinic. Since then she's noticed worsening redness with weeping ulcers edema and warmth to the touch along with increase sensitivity and pain to the touch. Denies any fevers or chills. She does admit to multiple attacks of cellulitis in the past with skin breakdown. In the emergency department she was started on drink and Zosyn. Her labs were reviewed shows stable CK D, stable chronic anemia, patient also has mild hyperkalemia for which Kayexalate was given in the ED Otherwise patient denies any fevers chills, headache, chest pain, trouble breathing, abdominal pain, nausea vomiting, changes in her bowel or urinary habits, denies any focal neurologic deficits. Patient reports that she just finished course of antibiotic on Wednesday 4 days ago Review of Systems Pertinent positives as noted in HPI. All other systems were reviewed and are negative Past Medical History Past Medical History: Diabetes Mellitus, GERD/Reflux, Hyperlipidemia, Hypertension, Myocardial Infarction (DE), Rheumatoid Arthritis (RA) Additional Past Medical History / Comment(s): neuropathy,edentulous, cellulitis lt leg,cataracats, past uterine cysts, "gallstones", chronic back pain.. "i've had a rash for this past year on shoulders,bra line and lt leg". Last Myocardial Infarction Date:: 2014 History of Any Multi-Drug Resistant Organisms: ESBL Date of last positivie culture/infection: 10/13/17 MDRO Source:: ESBL URINE Past Surgical History: Appendectomy, Section, Coronary Bypass/CABG Additional Past Surgical History / Comment(s): d&c,, x2, 2 vessel cabg ,?uterine ablation Past Anesthesia/Blood Transfusion Reactions: No Reported Reaction Additional Past Anesthesia/Blood Transfusion Reaction / Comment(s): clausterphobia Past Psychological History: Depression Additional Psychological History / Comment(s): pt lives alone at [facility]. (lost her of 30 years in jun 2017) uses walker when up and wheelchair for longer distances. has care provider thru her insurance company once a week. Smoking Status: Former smoker Past Alcohol Use History: None Reported Additional Past Alcohol Use History / Comment(s): started smoking at age 28 and quit at age 53 was smoking 3 ppd. in past used to drink but none since 1990 Past Drug Use History: None Reported - Past Family History Mother Additional Family Medical History / Comment(s): anuerysm Father Family Medical History: Myocardial Infarction (DE) Sister(s) Additional Family Medical History / Comment(s): one sister had "hole in her heart" and a kidney transplant and another sister had ms. Medications and Allergies Home Medications Medication Instructions Recorded Confirmed Type Albuterol Sulfate [Proair Hfa] 2 puff INHALATION RT-QID PRN 02/18/18 08/17/18 History Atorvastatin [Lipitor] 20 mg PO HS 02/18/18 08/17/18 History Gabapentin [Neurontin] 300 mg PO HS #0 02/23/18 08/17/18 Rx Budesonide-Formot 160-4.5 Mcg 2 puff INHALATION RT-BID 05/30/18 08/17/18 History [Symbicort 160-4.5 Mcg Inhaler] Aspirin 81 mg PO DAILY chew 06/02/18 08/17/18 Rx Carvedilol [Coreg] 12.5 mg PO BID 08/17/18 08/17/18 History Clopidogrel [Plavix] 75 mg PO DAILY 08/17/18 08/17/18 History Insulin Aspart [NovoLOG See Protocol SQ AC-TID 08/17/18 08/17/18 History (formulary)] Insulin Detemir [Levemir Flextouch] 30 units SQ HS 08/17/18 08/17/18 History Allergies Allergy/AdvReac Type Severity Reaction Status Date / Time No Known Allergies Allergy Verified 08/17/18 17:40 Physical Exam Vitals: Vital Signs Temp Pulse Resp BP Pulse Ox 08/17/18 21:00 118/53 08/17/18 18:30 118/53 08/17/18 17:31 98.5 F 60 18 122/72 97 08/17/18 17:30 122/72 98 Intake and Output 08/17/18 08/17/18 08/17/18 06:59 14:59 22:59 Other: Weight 139.253 kg Constitutional: No acute distress, conversant, pleasant, morbidly obese Eyes: Anicteric sclerae, moist conjunctiva, no lid-lag Pupils equal round reactive to light ENMT: NC/AT Oropharynx clear, no erythema, or exudates Neck: Supple, FROM, no masses, or JVD No carotid bruits No thyromegaly Lungs: Clear to auscultation Clear to percussion Normal respiratory effort, no accessory muscle use Cardiovascular: Heart regular in rate and rhythm, No murmurs, gallops, or rubs Peripheral edema of the left lower extremity worse than the right S1 Abdominal: Soft Nontender, no guarding, rebound or rigidity Abdomen moving with respiration Normoactive bowel sounds No hepatomegaly, No splenomegaly No palpable mass Abdominal wall hernia noted. Nonobstructive Skin: Chronic skin changes over bilateral legs, erythema, skin sloughing, swelling, warmth to the touch of the left lower leg. With weeping ulcers No induration No subcutaneous nodules Extremities: No digital cyanosis No clubbing Pedal pulses not palpable capillary refill is immediate bilateral toes Radial pulses intact and symmetrical Tenderness of the left leg as described above Psychiatric: Alert and oriented to person, place and time Appropriate affect fair judgment Neuro Muscles Strength 4/5 in all 4 extremities Sensation to light touch grossly present throughout Cranial nerves II-XII grossly intact No focal sensory deficits Lymphatics: no palpable cervical or supraclavicular , or inguinal lymph nodes Results CBC & Chem 7: 08/17/18 18:00 08/17/18 18:00 Labs: Abnormal Lab Results - Last 24 Hours (Table) 08/17/18 08/17/18 08/17/18 Range/Units 18:00 18:00 18:26 RBC 3.54 L (3.80-5.40) m/uL Hgb 10.0 L (11.4-16.0) gm/dL Hct 31.5 L (34.0-46.0) % RDW 16.6 H (11.5-15.5) % Potassium 5.9 H (3.5-5.1) mmol/L Chloride 108 H (98-107) mmol/L BUN 71 H (7-17) mg/dL Creatinine 1.81 H (0.52-1.04) mg/dL Glucose 141 H (74-99) mg/dL POC Glucose (mg/dL) (75-99) mg/dL Albumin 3.4 L (3.5-5.0) g/dL Urine Protein Trace H (Negative) 08/17/18 Range/Units 19:29 RBC (3.80-5.40) m/uL Hgb (11.4-16.0) gm/dL Hct (34.0-46.0) % RDW (11.5-15.5) % Potassium (3.5-5.1) mmol/L Chloride (98-107) mmol/L BUN (7-17) mg/dL Creatinine (0.52-1.04) mg/dL Glucose (74-99) mg/dL POC Glucose (mg/dL) 159 H (75-99) mg/dL Albumin (3.5-5.0) g/dL Urine Protein (Negative) Thrombosis Risk Factor Assmnt - Choose All That Apply Any of the Below Risk Factors Present?: Yes Each Factor Represents 1 point: Abnormal pulmonary function (COPD), Age 41-60 years, Obesity (BMI >25) Thrombosis Risk Factor Assessment Total Risk Factor Score: 3 Thrombosis Risk Factor Assessment Level: Moderate Risk Assessment and Plan Assessment: 57-year-old female with history of chronic venous stasis and dermatosis of bilateral legs with multiple episodes of left leg cellulitis. Patient admitted as inpatient with anticipated length of stay more than 48 hours due to cellulitis of the left leg failed outpatient therapy. She just finished a course of antibiotic 4 days ago but she has missed wound care clinic appointment she has noticed worsening redness warmth and swelling of the left lower leg Plan: Left leg cellulitis failed outpatient therapy Chronic venous stasis and dermatosis of bilateral legs Patient started on Zosyn and Vanco Local wound care Yusuf wrap in bilaterally ID consult Follow-up cultures Tylenol for fevers Pain control Mild hyperkalemia asymptomatic Status post Kayexalate in the ER Follow-up electrolytes History of CK D currently stable Avoid nephrotoxic meds Monitor urine output Follow-up renal function Chronic anemia currently stable Patient denies any chest bleeding Routine follow-up COPD without exacerbation Resume all medications inhalers Diabetes mellitus Continue Levemir Insulin sliding scale Diastolic CHF currently compensated Continue home meds DVT prophylaxis heparin subcu 3 times a day Preformed a thorough record review from recent hospitalization as summarized in HPI, where she was admitted for cellulitis of left leg and chronic venostasis dermatosis. Patient was treated with IV antibiotic that later switched to daptomycin Surrogate decision-maker: Patient failed to name surrogate decision-maker CODE STATUS: Full code Discussed with: Patient, ER, RN Anticipated discharge: 48-[address]: Pending clinical course A total of 60 minutes was spent on the care of this complex patient more than 50 % of the time was spent in counseling and care coordination.
[2018-08-17] MEDS: HEPARIN SODIUM,PORCINE 5,000 UNIT/ML 1 ML VIAL SQ SCH (23:29)
[2018-08-17] MEDS: PIPERACILLIN-TAZOBACTAM 3.375 GM in SODIUM CHLORIDE 0.9% 100 ML IVPB SCH (23:29)
[2018-08-18 07:13] LABS: Anisocytosis Slight; Basophils % (A) 0 %; Eosinophils # (A) 0.3 k/uL (0-0.7); Eosinophils % (A) 3 %; HCT 28.8 % (34.0-46.0); HGB 8.7 gm/dL (11.4-16.0); Hypochromasia Marked; Lymphocytes # (A) 0.8 k/uL (1.0-4.8); Lymphocytes % (A) 9 %; MCH 27.4 pg (25.0-35.0); MCHC 30.1 g/dL (31.0-37.0); Mean Platelet Volume 7.1; Monocytes # (A) 0.5 k/uL (0-1.0); Monocytes % (A) 6 %; Neutrophils # (A) 6.5 k/uL (1.3-7.7); Neutrophils % (A) 79 %; Platelet Count 294 k/uL (150-450); RBC 3.16 m/uL (3.80-5.40); RDW 16.7 % (11.5-15.5); WBC 8.2 k/uL (3.8-10.6)
[2018-08-18 07:17] LABS: Glucose,Whole Blood 204 mg/dL (75-99)
[2018-08-18 07:29] LABS: Albumin 2.8 g/dL (3.5-5.0); Calcium 8.2 mg/dL (8.4-10.2); Potassium 5.3 mmol/L (3.5-5.1); Total Bilirubin 0.5 mg/dL (0.2-1.3); Total Protein 5.8 g/dL (6.3-8.2)
[2018-08-18] MEDS: SYMBICORT 160-4.5 MCG INHALER INHALATION SCH ×2 (07:32→21:38)
[2018-08-18] MEDS ORDERED: VANCOMYCIN 2,000 MG in SODIUM CHLORIDE 0.9% 500 ML 500 ML IVPB SCH (09:00)
[2018-08-18] MEDS: HEPARIN SODIUM,PORCINE 5,000 UNIT/ML 1 ML VIAL SQ SCH ×2 (09:30→16:06)
[2018-08-18] MEDS: PIPERACILLIN-TAZOBACTAM 3.375 GM in SODIUM CHLORIDE 0.9% 100 ML IVPB SCH ×2 (09:30→16:05)
[2018-08-18] MEDS: ASPIRIN 81 MG PO SCH (09:31)
[2018-08-18] MEDS: INSULIN ASPART 100 UNIT/ML 1 ML 10 ML VIAL SQ SCH ×4 (09:31→21:32)
[2018-08-18] MEDS: CARVEDILOL 12.5 MG TAB PO SCH ×2 (09:31→21:32)
[2018-08-18] MEDS: traMADol 50 MG TAB PO PRN ×2 (10:53→21:35)
[2018-08-18 12:09] LABS: Glucose,Whole Blood 234 mg/dL (75-99)
[2018-08-18] MEDS ORDERED: SODIUM POLYSTYRENE SULFONATE 15 GM/60 ML BOTTLE PO STA (13:57)
--- NOTE | 2018-08-18 14:10 | P.PN ---
Subjective Progress Note Date: 08/18/18 Principal diagnosis: leg pain and redness Patient is a 57-year-old female with a past medical history of chronic kidney disease, diabetes, and diastolic congestive heart failure, as well as chronic venous stasis with wounds being treated at the wound care center who presented to the emergency department with complaints of lower extremity redness, swelling, and severe pain. In the ER she underwent an extensive evaluation. Her initial vital signs were within normal limits. Initial laboratory analysis showed hyperkalemia with a potassium of 5.9, her chronic kidney disease, and her chronic anemia. There was concern for failure of outpatient treatment as she had completed antibiotics 3 days prior. She was subsequently admitted for IV antibiotics. Patient seen and examined at bedside. She states that she typically is seen at the wound care center by can. She reports that she missed her appointment this week is the wound was running late and her home health health care specialist refused to wait any longer. She then reports that her home health care nurse didn't come out and change her dressings the next day either. Yesterday she was having increased drainage as well as increased pain and redness left lower extremities that she presented to the ER. She states continues to have pain. It is less than yesterday. No nausea, vomiting, or diarrhea. Objective - Vital Signs Vital signs: Vital Signs Temp 98.7 F 08/18/18 07:00 Pulse 74 08/18/18 09:15 Resp 16 08/18/18 09:15 BP 122/86 08/18/18 07:00 Pulse Ox 92 L 08/18/18 07:00 Intake & Output 08/17/18 08/18/18 08/18/18 18:59 06:59 18:59 Intake Total 1450 420 Balance 1450 420 Weight 139.253 kg Intake: Intake, IV Titration 1100 Amount Piperacillin-Tazobactam 3 200 .375 gm In Sodium Chloride 0.9% 100 ml @ 25 mls/hr IVPB ONCE STA Rx# :[id number] Sodium Chloride 0.9% 1, 400 000 ml @ 100 mls/hr IV . Q10H STA Rx#:[id number] Vancomycin 2,500 mg In 500 Sodium Chloride 0.9% 500 ml 500 ml @ 167 mls/hr IVPB ONCE STA Rx#: [id number] Oral 350 420 Other: Voiding Method Toilet Bedside Commode # Voids 1 1 - Exam General: Ill appearing, no acute distress, obese, appears older than stated age Derm: Left lower extremity erythematous with serous exudate, skin sloughing, chronic venous stasis changes bilateral lower extremities, left great and second toe with dusky appearance and healing the shower, no unusual ecchymoses, warm, Head: atraumatic, normocephalic, symmetric Eyes: EOMI, no lid lag, anicteric sclera, pupils equal round reactive to light Cardiovascular: S1S2 reg, no murmur, positive posterior tibial pulse bilateral, no edema, capillary refill less than 2 seconds Lungs: Decreased breath sounds bilateral, no rhonchi, no rales , no accessory muscle use Abdominal: soft, nontender to palpation, no guarding, no appreciable organomegaly, normal bowel sounds Ext: no gross muscle atrophy, 2+ edema left lower extremity, 1+ edema right lower extremity Neuro: CN II-XI grossly intact, light touch intact all 4 extremities Psych: Alert, oriented, appropriate affect - Labs CBC & Chem 7: 08/18/18 06:20 08/18/18 06:20 Labs: Abnormal Lab Results - Last 24 Hours (Table) 08/17/18 08/17/18 08/17/18 Range/Units 18:00 18:00 18:26 RBC 3.54 L (3.80-5.40) m/uL Hgb 10.0 L (11.4-16.0) gm/dL Hct 31.5 L (34.0-46.0) % MCHC (31.0-37.0) g/dL RDW 16.6 H (11.5-15.5) % Lymphocytes # (1.0-4.8) k/uL ESR (0-20) mm/hr Potassium 5.9 H (3.5-5.1) mmol/L Chloride 108 H (98-107) mmol/L BUN 71 H (7-17) mg/dL Creatinine 1.81 H (0.52-1.04) mg/dL Glucose 141 H (74-99) mg/dL POC Glucose (mg/dL) (75-99) mg/dL Calcium (8.4-10.2) mg/dL AST (14-36) U/L C-Reactive Protein (<10.0) mg/L Total Protein (6.3-8.2) g/dL Albumin 3.4 L (3.5-5.0) g/dL Urine Protein Trace H (Negative) 08/17/18 08/18/18 08/18/18 Range/Units 19:29 06:20 06:20 RBC 3.16 L (3.80-5.40) m/uL Hgb 8.7 L (11.4-16.0) gm/dL Hct 28.8 L (34.0-46.0) % MCHC 30.1 L (31.0-37.0) g/dL RDW 16.7 H (11.5-15.5) % Lymphocytes # 0.8 L (1.0-4.8) k/uL ESR (0-20) mm/hr Potassium 5.3 H (3.5-5.1) mmol/L Chloride 110 H (98-107) mmol/L BUN 60 H (7-17) mg/dL Creatinine 1.89 H (0.52-1.04) mg/dL Glucose 183 H (74-99) mg/dL POC Glucose (mg/dL) 159 H (75-99) mg/dL Calcium 8.2 L (8.4-10.2) mg/dL AST 12 L (14-36) U/L C-Reactive Protein (<10.0) mg/L Total Protein 5.8 L (6.3-8.2) g/dL Albumin 2.8 L (3.5-5.0) g/dL Urine Protein (Negative) 08/18/18 08/18/18 08/18/18 Range/Units 06:20 06:20 07:05 RBC (3.80-5.40) m/uL Hgb (11.4-16.0) gm/dL Hct (34.0-46.0) % MCHC (31.0-37.0) g/dL RDW (11.5-15.5) % Lymphocytes # (1.0-4.8) k/uL ESR 99 H (0-20) mm/hr Potassium (3.5-5.1) mmol/L Chloride (98-107) mmol/L BUN (7-17) mg/dL Creatinine (0.52-1.04) mg/dL Glucose (74-99) mg/dL POC Glucose (mg/dL) 204 H (75-99) mg/dL Calcium (8.4-10.2) mg/dL AST (14-36) U/L C-Reactive Protein 65.1 H (<10.0) mg/L Total Protein (6.3-8.2) g/dL Albumin (3.5-5.0) g/dL Urine Protein (Negative) 08/18/18 Range/Units 11:57 RBC (3.80-5.40) m/uL Hgb (11.4-16.0) gm/dL Hct (34.0-46.0) % MCHC (31.0-37.0) g/dL RDW (11.5-15.5) % Lymphocytes # (1.0-4.8) k/uL ESR (0-20) mm/hr Potassium (3.5-5.1) mmol/L Chloride (98-107) mmol/L BUN (7-17) mg/dL Creatinine (0.52-1.04) mg/dL Glucose (74-99) mg/dL POC Glucose (mg/dL) 234 H (75-99) mg/dL Calcium (8.4-10.2) mg/dL AST (14-36) U/L C-Reactive Protein (<10.0) mg/L Total Protein (6.3-8.2) g/dL Albumin (3.5-5.0) g/dL Urine Protein (Negative) Microbiology - Last 24 Hours (Table) 08/17/18 18:00 Gram Stain - Preliminary Leg - Left Wound Culture - Preliminary Assessment and Plan Assessment: Left lower extremity cellulitis with chronic venous stasis ulceration, failed outpatient treatment -Patient states she completed antibiotics on Wednesday for this infection -Continue with Zosyn and vancomycin with history of staph aureus and diabetes mellitus -IV and wound care consultation -Wound culture pending, blood cultures pending -Repeat basic metabolic profile in a.m. with vancomycin use Hyperkalemia, chronic kidney disease stage 3/4 -Unknown cause -Repeat Kayexalate again today -Patient does have chronic kidney disease which appears to be at baseline -Not on any Medications that appear to be causing hyperkalemia -May need chronic treatment -Repeat basic metabolic profile in a.m. Diabetes mellitus type 2 -Insulin requiring at home -Continue with basal/bolus insulin -Follow blood sugars -Check A1c Chronic microcytic anemia -Workup in February revealed iron deficiency anemia, patient not currently on replacement -Patient denies bleeding will check fecal occult blood Diastolic congestive heart failure, currently compensated, ejection fraction 50- 55% -Not chronically on any diuretics will not add at this point in time -Continue with Coreg -Not chronically an EULA inhibitor and not indicated with preserved ejection fraction and hyperkalemia COPD, currently compensated -As needed bronchodilators Hypertension -Currently controlled -Follow blood pressures closely Dyslipidemia -Statin DVT prophylaxis: Heparin Discussed with: Patient, nursing, Dr. Acuña Anticipated discharge: 48-[address]: With resuming her home health and outpatient wound care therapy A total of 45 minutes was spent on the care of this complex patient more than 50 % of the time was spent in counseling and care coordination.
[2018-08-18 17:32] LABS: Glucose,Whole Blood 198 mg/dL (75-99)
[2018-08-18 20:51] LABS: Glucose,Whole Blood 218 mg/dL (75-99)
[2018-08-18] MEDS: ATORVASTATIN 20 MG TAB PO SCH (21:32)
[2018-08-18] MEDS: GABAPENTIN 300 MG CAP PO SCH (21:32)
[2018-08-18] MEDS: INSULIN DETEMIR 100 UNIT/ML 10 ML VIAL SQ SCH (21:33)
--- NOTE | 2018-08-18 21:35 | P.CONS ---
History of Present Illness - Reason for Consult Consult date: 08/18/18 - Chief Complaint pain left leg - History of Present Illness 57year old woman with multiple medical problems including Chronic kidney disease , coronary artery disease, peripheral vascular disease and urinary tract infections. The patient relates that she's had several months of difficulties with her lower extremities, left greater than right over time. She relates that she's been seen by vascular surgery, Dr. Solomon and was seen at the wound healing Center. She relates that she recently has been seen by her primary care physician and placed on antibiotic therapy for the swelling redness and erythema to the left leg. When however worsened became more swollen the skin open and started to weep a counselor she presented to Hospital and has been admitted. For the significant cellulitis and weeping lesions to the left leg the infectious diseases consultation was requested. The patient relates her pain is modestly well controlled. She is not having further fevers or chills but does feel poorly overall. She does relate that she is in a safe living environment but is sad after the of her of 30 years. Review of Systems 49-year-old woman not in acute distress HEENT:Denies headache or acute visual change. Denies sinus or mouth discomforts. Denies neck stiffness or pain. Denies significant oral cavity pain. Denies difficulty on swallowing. Lungs: Denies significant shortness of breath, cough, sputum production, or hemoptysis. Cardiovascular: Denies significant shortness of breath, chest pain, chest wall pain, orthopnea, dyspnea on exertion, syncope Gastrointestinal:Denies nausea, vomiting, diarrhea, constipation, hematemesis, melena, hematochezia. No no significant change of bowel habit noticed. Musculoskeletal: Has chronic musculoskeletal pain however no acute changes Skin: As per the HPI open ulceration drainage left leg Neuro: Denies headache or visual change. Denies any new onset weakness or difficulty with ambulation. Denies falls or seizures. Psychiatric: Chronic anxiety and depression Endocrine: Chronic fatigue weight has been stable Past Medical History Past Medical History: Diabetes Mellitus, GERD/Reflux, Hyperlipidemia, Hypertension, Myocardial Infarction ([place]), Rheumatoid Arthritis ([place]) Additional Past Medical History / Comment(s): neuropathy,edentulous, cellulitis lt leg,cataracats, past uterine cysts, "gallstones", chronic back pain.. "i've had a rash for this past year on shoulders,bra line and lt leg". Last Myocardial Infarction Date:: 2014 History of Any Multi-Drug Resistant Organisms: ESBL Year Discovered:: 10/13/17 MDRO Source:: ESBL URINE Past Surgical History: Appendectomy, Section, Coronary Bypass/CABG Additional Past Surgical History / Comment(s): d&c,, x2, 2 vessel cabg ,?uterine ablation Past Anesthesia/Blood Transfusion Reactions: No Reported Reaction Additional Past Anesthesia/Blood Transfusion Reaction / Comm: clausterphobia Past Psychological History: Depression Additional Psychological History / Comment(s): pt lives alone at [facility]. (lost her of 30 years in jun 2017). uses walker when up and wheelchair for longer distances. has care provider thru her insurance company once a week. Denies tobacco smoking or alcohol use. Medically disabled. No experience or international travel. No animals in the home Smoking Status: Former smoker Past Alcohol Use History: None Reported Additional Past Alcohol Use History / Comment(s): started smoking at age 28 and quit at age 53 was smoking 3 ppd. in past used to drink but none since 1990 Past Drug Use History: None Reported - Past Family History Mother Additional Family Medical History / Comment(s): anuerysm Father Family Medical History: Myocardial Infarction ([place]) Sister(s) Additional Family Medical History / Comment(s): one sister had "hole in her heart" and a kidney transplant and another sister had ms. Medications and Allergies Home Medications and Allergies Comment(s): Current Medications Albuterol Sulfate (Ventolin Nebulized) 2.5 mg INHALATION RT-QID PRN PRN Reason: Shortness Of Breath Aspirin (Aspirin) 81 mg PO DAILY [facility] Last Admin: 08/18/18 09:31 Dose: 81 mg Atorvastatin Calcium (Lipitor) 20 mg PO [facility] Budesonide/Formoterol Fumarate (Symbicort 160-4.5 Mcg Inhaler) 2 puff INHALATION RT-BID [facility] Last Admin: 08/18/18 07:32 Dose: 2 puff Carvedilol (Coreg) 12.5 mg PO BID [facility] Last Admin: 08/18/18 09:31 Dose: 12.5 mg Gabapentin (Neurontin) 300 mg PO [facility] Heparin Sodium (Porcine) (Heparin) 5,000 unit SQ Q8HR [facility] Last Admin: 08/18/18 16:06 Dose: 5,000 unit Piperacillin Sod/Tazobactam (Sod 3.375 gm/ Sodium Chloride) 100 mls @ 25 mls/ hr IVPB Q8HR [facility] Last Admin: 08/18/18 16:05 Dose: 25 mls/hr Vancomycin HCl 2,000 mg/ (Sodium Chloride) 500 mls @ 167 mls/hr IVPB Q48H [facility] Last Admin: 08/18/18 09:35 Dose: 167 mls/hr Insulin Aspart (Novolog) 0 unit SQ [facility]; Protocol Last Admin: 08/18/18 17:41 Dose: 3 unit Insulin Detemir (Levemir) 30 unit SQ [facility] Naloxone HCl (Narcan) 0.2 mg IV Q2M PRN PRN Reason: Opioid Reversal Ondansetron HCl (Zofran) 4 mg IVP Q8HR PRN PRN Reason: Nausea And Vomiting Tramadol HCl (Ultram) 100 mg PO QID PRN PRN Reason: Breakthrough Pain Last Admin: 08/18/18 10:53 Dose: 100 mg Home Medications Medication Instructions Recorded Confirmed Type Albuterol Sulfate [Proair Hfa] 2 puff INHALATION RT-QID PRN 02/18/18 08/17/18 History Atorvastatin [Lipitor] 20 mg PO HS 02/18/18 08/17/18 History Gabapentin [Neurontin] 300 mg PO HS #0 02/23/18 08/17/18 Rx Budesonide-Formot 160-4.5 Mcg 2 puff INHALATION RT-BID 05/30/18 08/17/18 History [Symbicort 160-4.5 Mcg Inhaler] Aspirin 81 mg PO DAILY chew 06/02/18 08/17/18 Rx Carvedilol [Coreg] 12.5 mg PO BID 08/17/18 08/17/18 History Clopidogrel [Plavix] 75 mg PO DAILY 08/17/18 08/17/18 History Insulin Aspart [NovoLOG See Protocol SQ AC-TID 08/17/18 08/17/18 History (formulary)] Insulin Detemir [Levemir Flextouch] 30 units SQ HS 08/17/18 08/17/18 History Allergies Allergy/AdvReac Type Severity Reaction Status Date / Time No Known Allergies Allergy Verified 08/17/18 17:40 Physical Exam Vitals: Vital Signs Temp Pulse Resp BP Pulse Ox 08/18/18 19:00 97.7 F 70 16 121/53 95 08/18/18 14:35 97.5 F L 70 16 135/74 93 L 08/18/18 09:15 74 16 08/18/18 07:00 98.7 F 74 16 122/86 92 L 08/18/18 00:50 98.5 F 68 16 109/67 94 L 08/18/18 00:10 16 08/17/18 22:15 98.9 F 71 16 107/66 94 L Intake and Output 08/18/18 08/18/18 08/18/18 06:59 14:59 22:59 Intake Total 1150 420 Balance 1150 420 Intake: Intake, IV Titration 1000 Amount Piperacillin-Tazobactam 3 100 .375 gm In Sodium Chloride 0.9% 100 ml @ 25 mls/hr IVPB ONCE STA Rx# :[id number] Sodium Chloride 0.9% 1, 400 000 ml @ 100 mls/hr IV . Q10H STA Rx#:[id number] Vancomycin 2,500 mg In 500 Sodium Chloride 0.9% 500 ml 500 ml @ 167 mls/hr IVPB ONCE STA Rx#: [id number] Oral 150 420 Other: Voiding Method Bedside Commode # Voids 1 1 57-year-old female presents to Hospital feeling poorly with increasing pain and swelling erythema and drainage from the left leg. HEENT: Anicteric conjunctiva are pink and moist nasal mucosa grossly intact without significant lesions, there is no thrush. Dentition is poor for age Neck: The neck is supple without significant lymphadenopathy or thyromegaly. Lungs: Symmetrical air entry is noted there are few crackles at the baseand wheezing no dullness or egophony Heart: Regular rate and rhythm with an audible S1-S2, no S3 positive S4. There is no significant murmur click or rub, PMI was nondisplaced. Abdomen: Mildly obese, Positive bowel sounds soft and nontender without palpable masses or organomegaly. There was no guarding or rebound. Extremities: Upper extremity balance ofthe lesions IV site is intact. The lower extremities reveal evidence of the bilateral lower extremity edema. Left leg is more involved than the right and there is evidence of the extensive weeping problem sero-minimally sanguinous material from the limb. It is tender to touch. It is warm there is distinct erythema. The erythema does not ascend significantly above the knee. There is no significant inguinal lymphadenopathy to the left. No other abnormal lymph nodes are noted. Neuro: Awake alert oriented to person place and time. There are no acute new gross focal sensory motor deficits. Patient has ongoing significant anxiety. Results CBC & Chem 7: 08/18/18 06:20 08/18/18 06:20 Labs: Abnormal Lab Results - Last 24 Hours (Table) 08/18/18 08/18/18 08/18/18 Range/Units 06:20 06:20 06:20 RBC 3.16 L (3.80-5.40) m/uL Hgb 8.7 L (11.4-16.0) gm/dL Hct 28.8 L (34.0-46.0) % MCHC 30.1 L (31.0-37.0) g/dL RDW 16.7 H (11.5-15.5) % Lymphocytes # 0.8 L (1.0-4.8) k/uL ESR 99 H (0-20) mm/hr Potassium 5.3 H (3.5-5.1) mmol/L Chloride 110 H (98-107) mmol/L BUN 60 H (7-17) mg/dL Creatinine 1.89 H (0.52-1.04) mg/dL Glucose 183 H (74-99) mg/dL POC Glucose (mg/dL) (75-99) mg/dL Calcium 8.2 L (8.4-10.2) mg/dL AST 12 L (14-36) U/L C-Reactive Protein (<10.0) mg/L Total Protein 5.8 L (6.3-8.2) g/dL Albumin 2.8 L (3.5-5.0) g/dL 08/18/18 08/18/18 08/18/18 Range/Units 06:20 07:05 11:57 RBC (3.80-5.40) m/uL Hgb (11.4-16.0) gm/dL Hct (34.0-46.0) % MCHC (31.0-37.0) g/dL RDW (11.5-15.5) % Lymphocytes # (1.0-4.8) k/uL ESR (0-20) mm/hr Potassium (3.5-5.1) mmol/L Chloride (98-107) mmol/L BUN (7-17) mg/dL Creatinine (0.52-1.04) mg/dL Glucose (74-99) mg/dL POC Glucose (mg/dL) 204 H 234 H (75-99) mg/dL Calcium (8.4-10.2) mg/dL AST (14-36) U/L C-Reactive Protein 65.1 H (<10.0) mg/L Total Protein (6.3-8.2) g/dL Albumin (3.5-5.0) g/dL 08/18/18 08/18/18 Range/Units 17:16 20:20 RBC (3.80-5.40) m/uL Hgb (11.4-16.0) gm/dL Hct (34.0-46.0) % MCHC (31.0-37.0) g/dL RDW (11.5-15.5) % Lymphocytes # (1.0-4.8) k/uL ESR (0-20) mm/hr Potassium (3.5-5.1) mmol/L Chloride (98-107) mmol/L BUN (7-17) mg/dL Creatinine (0.52-1.04) mg/dL Glucose (74-99) mg/dL POC Glucose (mg/dL) 198 H 218 H (75-99) mg/dL Calcium (8.4-10.2) mg/dL AST (14-36) U/L C-Reactive Protein (<10.0) mg/L Total Protein (6.3-8.2) g/dL Albumin (3.5-5.0) g/dL Microbiology - Last 24 Hours (Table) 08/17/18 18:00 Blood Culture - Preliminary Blood No Growth after 24 hours 08/17/18 18:00 Gram Stain - Preliminary Leg - Left Wound Culture - Preliminary Gram Neg Bacilli Gram Neg Bacilli#2 Laboratory Results WBC 8.2 k/uL (3.8-10.6) 08/18/18 06:20 RBC 3.16 m/uL (3.80-5.40) L 08/18/18 06:20 Hgb 8.7 gm/dL (11.4-16.0) L 08/18/18 06:20 Hct 28.8 % (34.0-46.0) L 08/18/18 06:20 MCV 91.0 fL (80.0-100.0) 08/18/18 06:20 MCH 27.4 pg (25.0-35.0) 08/18/18 06:20 MCHC 30.1 g/dL (31.0-37.0) L 08/18/18 06:20 RDW 16.7 % (11.5-15.5) H 08/18/18 06:20 Plt Count 294 k/uL (150-450) 08/18/18 06:20 Neutrophils % 79 % 08/18/18 06:20 Lymphocytes % 9 % 08/18/18 06:20 Monocytes % 6 % 08/18/18 06:20 Eosinophils % 3 % 08/18/18 06:20 Basophils % 0 % 08/18/18 06:20 Neutrophils # 6.5 k/uL (1.3-7.7) 08/18/18 06:20 Lymphocytes # 0.8 k/uL (1.0-4.8) L 08/18/18 06:20 Monocytes # 0.5 k/uL (0-1.0) 08/18/18 06:20 Eosinophils # 0.3 k/uL (0-0.7) 08/18/18 06:20 Basophils # 0.0 k/uL (0-0.2) 08/18/18 06:20 Hypochromasia Marked 08/18/18 06:20 Anisocytosis Slight 08/18/18 06:20 ESR 99 mm/hr (0-20) H 08/18/18 06:20 PT 10.2 sec (9.0-12.0) 08/17/18 18:00 INR 1.0 (<1.2) 08/17/18 18:00 APTT 24.2 sec (22.0-30.0) 08/17/18 18:00 Sodium 141 mmol/L (137-145) 08/18/18 06:20 Potassium 5.3 mmol/L (3.5-5.1) H 08/18/18 06:20 Chloride 110 mmol/L (98-107) H 11/08/18 06:20 Carbon Dioxide 24 mmol/L (22-30) 08/18/18 06:20 Anion Gap 7 mmol/L 08/18/18 06:20 BUN 60 mg/dL (7-17) H 08/18/18 06:20 Creatinine 1.89 mg/dL (0.52-1.04) H 08/18/18 06:20 Est GFR (CKD-EPI)AfAm 33 (>60 ml/min/1.73 sqM) 08/18/18 06:20 Est GFR (CKD-EPI)NonAf 29 (>60 ml/min/1.73 sqM) 08/18/18 06:20 Glucose 183 mg/dL (74-99) H 08/18/18 06:20 POC Glucose (mg/dL) 218 mg/dL (75-99) H 08/18/18 20:20 POC Glu Bowl Topper Annelise Ambriz 08/18/18 20:20 Plasma Lactic Acid Syl[place] 1.0 mmol/L (0.7-2.0) 08/17/18 18:00 Calcium 8.2 mg/dL (8.4-10.2) L 08/18/18 06:20 Total Bilirubin 0.5 mg/dL (0.2-1.3) 08/18/18 06:20 AST 12 U/L (14-36) L 08/18/18 06:20 ALT 19 U/L (9-52) 08/18/18 06:20 Alkaline Phosphatase 93 U/L (38-126) 08/18/18 06:20 C-Reactive Protein 65.1 mg/L (<10.0) H 08/18/18 06:20 Total Protein 5.8 g/dL (6.3-8.2) L 08/18/18 06:20 Albumin 2.8 g/dL (3.5-5.0) L 08/18/18 06:20 Urine Color Yellow 08/17/18 18:26 Urine Appearance Clear (Clear) 08/17/18 18:26 Urine pH 5.0 (5.0-8.0) 08/17/18 18:26 Ur Specific [place] 1.016 (1.001-1.035) 08/17/18 18:26 Urine Protein Trace (Negative) H 08/17/18 18:26 Urine Glucose (UA) Negative (Negative) 08/17/18 18: Urine Ketones Negative (Negative) 08/17/18 18: Urine Blood Negative (Negative) 08/17/18 18: Urine Nitrite Negative (Negative) 08/17/18 18: Urine Bilirubin Negative (Negative) 08/17/18 18: Urine Urobilinogen <2.0 mg/dL (<2.0) 08/17/18 18: Ur Leukocyte Esterase Negative (Negative) 08/17/18 18: Microbiology 08/17/18 18:00 Blood Blood Culture - Preliminary No Growth after 24 hours 08/17/18 18:00 Leg - Left Gram Stain - Preliminary 08/17/18 18:00 Leg - Left Wound Culture - Preliminary Gram Neg Bacilli Gram Neg Bacilli#2 Assessment and Plan (1) Cellulitis of left leg Narrative/Plan: 49-year-old woman who has a long-standing history of multiple medical problems presents to hospital with increasing pains swelling erythema and drainage from the left leg. She was seen in the outpatient setting despite oral antibiotic therapy she had no improvement. She Presents to the Emergency Center and There Is Evidence of the Significant Swelling and Cellulitis of the Left Leg with Drainage. She Is Evidence of an Acute Hyperkalemia and Potential Worsening of Her Chronic Kidney Disease. Cultures of the leg are obtained. Antibiotic therapy with vancomycin and Zosyn is started at this time pending further data and based on prior cultures. Local wound care will be with an absorptive foam wrapping this in the place replacing it at least daily. Elevate the limb at rest is helpful. She relates is extremely tender and does have complaints of pain when it is wrapped. Continue pain medications to control her discomfort. Laboratories are being requested to ensure that there is not another etiology for this difficulty other than her known medical disorders. Primary service is treating the hyperkalemia and chronic kidney disease. There is somewhat asymmetric disease processes occurring in does not appear to have an acute worsening of her chronic systolic congestive heart failure. Current Visit: Yes Status: Acute Code(s): L03.116 - CELLULITIS OF LEFT LOWER LIMB SNOMED Code(s): 705725890 (2) Failure of outpatient treatment Current Visit: Yes Status: Acute Code(s): Z78.9 - OTHER SPECIFIED HEALTH STATUS SNOMED Code(s): 026907132 (3) Diabetes Current Visit: No Status: Acute Priority: Medium Code(s): E11.9 - TYPE 2 DIABETES MELLITUS WITHOUT COMPLICATIONS SNOMED Code(s): 54011942 (4) Chronic systolic congestive heart failure Current Visit: Yes Status: Acute Code(s): I50.22 - CHRONIC SYSTOLIC ( CONGESTIVE) HEART FAILURE SNOMED Code(s): 172840744
[2018-08-18 21:49] LABS: Iron Saturation 5.88 (12.00-45.00)
[2018-08-19] MEDS: PIPERACILLIN-TAZOBACTAM 3.375 GM in SODIUM CHLORIDE 0.9% 100 ML IVPB SCH ×3 (02:11→16:18)
[2018-08-19] MEDS: HEPARIN SODIUM,PORCINE 5,000 UNIT/ML 1 ML VIAL SQ SCH ×3 (02:12→16:18)
[2018-08-19 07:10] LABS: Glucose,Whole Blood 154 mg/dL (75-99)
[2018-08-19] MEDS: ASPIRIN 81 MG PO SCH (08:09)
[2018-08-19] MEDS: CARVEDILOL 12.5 MG TAB PO SCH ×2 (08:09→22:05)
[2018-08-19] MEDS: INSULIN ASPART 100 UNIT/ML 1 ML 10 ML VIAL SQ SCH ×4 (08:09→22:06)
[2018-08-19] MEDS: traMADol 50 MG TAB PO PRN ×2 (09:24→22:16)
[2018-08-19 10:13] LABS: Calcium 8.4 mg/dL (8.4-10.2); Magnesium 2.7 mg/dL (1.6-2.3); Potassium 4.6 mmol/L (3.5-5.1)
[2018-08-19 10:18] LABS: Anisocytosis Slight; HCT 30.9 % (34.0-46.0); HGB 9.3 gm/dL (11.4-16.0); Hypochromasia Marked; MCH 27.7 pg (25.0-35.0); MCHC 30.1 g/dL (31.0-37.0); MCV 91.9 fL (80.0-100.0); Mean Platelet Volume 6.6; Platelet Count 331 k/uL (150-450); RBC 3.36 m/uL (3.80-5.40); RDW 16.6 % (11.5-15.5); WBC 7.3 k/uL (3.8-10.6)
--- NOTE | 2018-08-19 11:09 | P.PN ---
Subjective Progress Note Date: 08/19/18 Principal diagnosis: leg pain and redness Patient is a 57-year-old female with a past medical history of chronic kidney disease, diabetes, and diastolic congestive heart failure, as well as chronic venous stasis with wounds being treated at the wound care center who presented to the emergency department with complaints of lower extremity redness, swelling, and severe pain. In the ER she underwent an extensive evaluation. Her initial vital signs were within normal limits. Initial laboratory analysis showed hyperkalemia with a potassium of 5.9, her chronic kidney disease, and her chronic anemia. There was concern for failure of outpatient treatment as she had completed antibiotics 3 days prior. She was subsequently admitted for IV antibiotics. She required 2 doses of kayexelate to normalize her potassium. ID recommended awaiting culture and continuing zosyn and vanco. Patient seen and examined at bedside. Pain is better than yesterday. Still having a lot of drainage from bilateral lower extremities. No nausea, vomiting , or diarrhea. No chest pain or shortness of breath. Overall feeling better. We had a long discussion about possible asymmetric [place] on discharge again she would not want this. She will stay in hospital and get treated. We discussed that once her culture results are available and final antibiotics can be selected she will need to return home with home health care and follow-up in the wound care clinic. Patient acknowledges understanding. We also discussed at length her hyperkalemia. She states she's been treated for this in the past at [facility] but the medications made her feel nauseous and she therefore stopped taking them. Objective - Vital Signs Vital signs: Vital Signs Temp 97.7 F 08/19/18 07:00 Pulse 65 08/19/18 08:14 Resp 16 08/19/18 08:14 BP 137/69 08/19/18 07:00 Pulse Ox 96 08/19/18 07:00 Intake & Output 08/18/18 08/19/18 08/19/18 18:59 06:59 18:59 Intake Total 420 250 240 Balance 420 250 240 Intake: Oral 420 250 240 Other: Voiding Method Bedside Commode Bedside Commode Bedside Commode # Voids 1 1 - Exam General: Ill appearing, no acute distress, obese, appears older than stated age Derm: Dressing in place left lower extremity, Less erythema, no unusual ecchymoses, warm, Head: atraumatic, normocephalic, symmetric Eyes: EOMI, no lid lag, anicteric sclera, pupils equal round reactive to light Cardiovascular: S1S2 reg, no murmur, positive posterior tibial pulse bilateral, no edema, capillary refill less than 2 seconds Lungs: Decreased breath sounds bilateral, no rhonchi, no rales , no accessory muscle use Abdominal: soft, nontender to palpation, no guarding, no appreciable organomegaly, normal bowel sounds Ext: no gross muscle atrophy, 2+ edema left lower extremity, no edema right lower extremity Neuro: CN II-XI grossly intact, light touch intact all 4 extremities Psych: Alert, oriented, appropriate affect - Labs CBC & Chem 7: 08/19/18 08:51 08/19/18 08:51 Labs: Abnormal Lab Results - Last 24 Hours (Table) 08/18/18 08/18/18 08/18/18 Range/Units 06:20 06:20 06:20 RBC (3.80-5.40) m/uL Hgb (11.4-16.0) gm/dL Hct (34.0-46.0) % MCHC (31.0-37.0) g/dL RDW (11.5-15.5) % ESR 99 H (0-20) mm/hr Chloride (98-107) mmol/L BUN (7-17) mg/dL Creatinine (0.52-1.04) mg/dL Glucose (74-99) mg/dL POC Glucose (mg/dL) (75-99) mg/dL Magnesium (1.6-2.3) mg/dL Iron 15 L (50-170) ug/dL Iron Saturation 5.88 L (12.00-45.00) C-Reactive Protein 65.1 H (<10.0) mg/L 08/18/18 08/18/18 08/18/18 Range/Units 11:57 17:16 20:20 RBC (3.80-5.40) m/uL Hgb (11.4-16.0) gm/dL Hct (34.0-46.0) % MCHC (31.0-37.0) g/dL RDW (11.5-15.5) % ESR (0-20) mm/hr Chloride (98-107) mmol/L BUN (7-17) mg/dL Creatinine (0.52-1.04) mg/dL Glucose (74-99) mg/dL POC Glucose (mg/dL) 234 H 198 H 218 H (75-99) mg/dL Magnesium (1.6-2.3) mg/dL Iron (50-170) ug/dL Iron Saturation (12.00-45.00) C-Reactive Protein (<10.0) mg/L 08/19/18 08/19/18 08/19/18 Range/Units 06:56 08:51 08:51 RBC 3.36 L (3.80-5.40) m/uL Hgb 9.3 L (11.4-16.0) gm/dL Hct 30.9 L (34.0-46.0) % MCHC 30.1 L (31.0-37.0) g/dL RDW 16.6 H (11.5-15.5) % ESR (0-20) mm/hr Chloride 109 H (98-107) mmol/L BUN 50 H (7-17) mg/dL Creatinine 1.74 H (0.52-1.04) mg/dL Glucose 153 H (74-99) mg/dL POC Glucose (mg/dL) 154 H (75-99) mg/dL Magnesium 2.7 H (1.6-2.3) mg/dL Iron (50-170) ug/dL Iron Saturation (12.00-45.00) C-Reactive Protein (<10.0) mg/L Microbiology - Last 24 Hours (Table) 08/18/18 14:30 Gram Stain - Preliminary Leg - Left Wound Culture - Preliminary 08/17/18 18:00 Blood Culture - Preliminary Blood No Growth after 24 hours 08/17/18 18:00 Gram Stain - Preliminary Leg - Left Wound Culture - Preliminary Gram Neg Bacilli Gram Neg Bacilli#2 Assessment and Plan Assessment: Left lower extremity cellulitis with chronic venous stasis ulceration, failed outpatient treatment -Patient states she completed antibiotics on 08/14 for this -Continue with Zosyn and vancomycin with history of staph aureus and diabetes mellitus -ID and wound care recs appreciated -Wound culture 2 GNB, blood cultures pending -Repeat basic metabolic profile in a.m. with vancomycin use chronic kidney disease stage 3/4 -Patient does have chronic kidney disease which appears to be at baseline -Repeat basic metabolic profile in a.m. Diabetes mellitus type 2 -Insulin requiring at home -Continue with basal/bolus insulin -Follow blood sugars -A1c pending Chronic microcytic anemia -Workup in February revealed iron deficiency anemia, patient not currently on replacement -Patient denies bleeding, fecal occult blood pending Diastolic congestive heart failure, currently compensated, ejection fraction 50- 55% -Not chronically on any diuretics will not add at this point in time -Continue with Coreg -Not chronically an EULA inhibitor and not indicated with preserved ejection fraction and hyperkalemia COPD, currently compensated -As needed bronchodilators Hypertension -Currently controlled -Follow blood pressures closely Dyslipidemia -Statin Hyperkalemia, resolved DVT prophylaxis: Heparin Discussed with: Patient, nursing, Dr. Acuña Anticipated discharge: 48-[address]: With resuming her home health and outpatient wound care therapy A total of 45 minutes was spent on the care of this complex patient more than 50 % of the time was spent in counseling and care coordination.
[2018-08-19] MEDS: SYMBICORT 160-4.5 MCG INHALER INHALATION SCH ×2 (11:23→19:39)
[2018-08-19 11:42] LABS: Glucose,Whole Blood 132 mg/dL (75-99)
[2018-08-19 17:10] LABS: Glucose,Whole Blood 122 mg/dL (75-99)
[2018-08-19 20:20] LABS: Glucose,Whole Blood 172 mg/dL (75-99)
[2018-08-19] MEDS: GABAPENTIN 300 MG CAP PO SCH (22:05)
[2018-08-19] MEDS: ATORVASTATIN 20 MG TAB PO SCH (22:05)
[2018-08-19] MEDS: INSULIN DETEMIR 100 UNIT/ML 10 ML VIAL SQ SCH (22:06)
[2018-08-20 07:18] LABS: Glucose,Whole Blood 143 mg/dL (75-99)
[2018-08-20 07:21] LABS: Anisocytosis Slight; HCT 28.2 % (34.0-46.0); HGB 8.6 gm/dL (11.4-16.0); Hypochromasia Marked; MCH 27.8 pg (25.0-35.0); MCHC 30.5 g/dL (31.0-37.0); MCV 90.9 fL (80.0-100.0); Mean Platelet Volume 7.7; Platelet Count 278 k/uL (150-450); RBC 3.11 m/uL (3.80-5.40); RDW 16.7 % (11.5-15.5); WBC 7.2 k/uL (3.8-10.6)
[2018-08-20 07:29] LABS: Calcium 8.5 mg/dL (8.4-10.2); Potassium 5.2 mmol/L (3.5-5.1)
[2018-08-20] MEDS ORDERED: SODIUM POLYSTYRENE SULFONATE 15 GM/60 ML BOTTLE PO ONE (08:07)
[2018-08-20] MEDS: SYMBICORT 160-4.5 MCG INHALER INHALATION SCH ×2 (09:08→20:46)
[2018-08-20] MEDS: INSULIN ASPART 100 UNIT/ML 1 ML 10 ML VIAL SQ SCH ×4 (09:09→21:04)
[2018-08-20] MEDS: HEPARIN SODIUM,PORCINE 5,000 UNIT/ML 1 ML VIAL SQ SCH ×3 (09:18→16:47)
[2018-08-20] MEDS: CARVEDILOL 12.5 MG TAB PO SCH ×2 (09:18→21:03)
[2018-08-20] MEDS: PIPERACILLIN-TAZOBACTAM 3.375 GM in SODIUM CHLORIDE 0.9% 100 ML IVPB SCH ×4 (09:19→16:38)
[2018-08-20] MEDS: ASPIRIN 81 MG PO SCH (09:19)
[2018-08-20 12:01] LABS: Glucose,Whole Blood 162 mg/dL (75-99)
[2018-08-20 16:52] LABS: Glucose,Whole Blood 166 mg/dL (75-99)
--- NOTE | 2018-08-20 16:54 | P.PN ---
Subjective Progress Note Date: 08/20/18 (Delayed charting patient seen at 9:30 AM.) Principal diagnosis: leg pain and redness Patient is a 57-year-old female with a past medical history of chronic kidney disease, diabetes, and diastolic congestive heart failure, as well as chronic venous stasis with wounds being treated at the wound care center who presented to the emergency department with complaints of lower extremity redness, swelling, and severe pain. In the ER she underwent an extensive evaluation. Her initial vital signs were within normal limits. Initial laboratory analysis showed hyperkalemia with a potassium of 5.9, her chronic kidney disease, and her chronic anemia. There was concern for failure of outpatient treatment as she had completed antibiotics 3 days prior. She was subsequently admitted for IV antibiotics. She required 2 doses of kayexelate to normalize her potassium. ID recommended awaiting culture and continuing zosyn and vanco. Culture came back with pseudomonas and providencia. Vancomycin was stopped. Her leg had less drainage and redness by 08/20. Patient seen and examined at bedside. Her leg is feeling much better than yesterday. Pain is much decreased. No nausea, vomiting, diarrhea, or constipation. No other complaints currently. She is concerned about going home and dressing changes. She already has home health care set up and has appointment at the wound care clinic on Wednesday. She denies any unusual shortness of breath or chest pain. Objective - Vital Signs Vital signs: Vital Signs Temp 98.0 F 08/20/18 14:50 Pulse 61 08/20/18 14:50 Resp 16 08/20/18 07:00 BP 146/68 08/20/18 14:50 Pulse Ox 98 08/20/18 14:50 Intake & Output 08/19/18 08/20/18 08/20/18 18:59 06:59 18:59 Intake Total 740 400 Output Total 500 600 Balance 740 -500 -200 Intake: Intake, IV Titration 100 Amount Piperacillin-Tazobactam 3 100 .375 gm In Sodium Chloride 0.9% 100 ml @ 25 mls/hr IVPB Q8HR [facility] Rx# :[id number] Oral 640 400 Output: Urine 500 600 Other: Voiding Method Bedside Commode - Exam General: Nontoxic, no acute distress, obese, appears older than stated age Derm: Left lower extremity with improvement in redness/warmth, drainage is improved, still some areas of weeping and bleeding., Less erythema, no unusual ecchymoses, warm, Head: atraumatic, normocephalic, symmetric Eyes: EOMI, no lid lag, anicteric sclera, pupils equal round reactive to light Cardiovascular: S1S2 reg, no murmur, positive posterior tibial pulse bilateral, capillary refill less than 2 seconds Lungs: Decreased breath sounds bilateral, no rhonchi, no rales , no accessory muscle use Abdominal: soft, nontender to palpation, no guarding, no appreciable organomegaly, normal bowel sounds Ext: no gross muscle atrophy, no edema bilateral lower extremities Neuro: CN II-XI grossly intact, light touch intact all 4 extremities Psych: Alert, oriented, appropriate affect - Labs CBC & Chem 7: 08/20/18 06:52 08/20/18 06:52 Labs: Abnormal Lab Results - Last 24 Hours (Table) 08/19/18 08/19/18 08/19/18 Range/Units 08:51 16:56 20:08 RBC (3.80-5.40) m/uL Hgb (11.4-16.0) gm/dL Hct (34.0-46.0) % MCHC (31.0-37.0) g/dL RDW (11.5-15.5) % Potassium (3.5-5.1) mmol/L Chloride (98-107) mmol/L BUN (7-17) mg/dL Creatinine (0.52-1.04) mg/dL Glucose (74-99) mg/dL POC Glucose (mg/dL) 122 H 172 H (75-99) mg/dL Hemoglobin A1c 7.0 H (4.0-6.0) % Vitamin B12 (200.0-944.0) pg/mL 08/20/18 08/20/18 08/20/18 Range/Units 06:52 06:52 06:52 RBC 3.11 L (3.80-5.40) m/uL Hgb 8.6 L (11.4-16.0) gm/dL Hct 28.2 L (34.0-46.0) % MCHC 30.5 L (31.0-37.0) g/dL RDW 16.7 H (11.5-15.5) % Potassium 5.2 H (3.5-5.1) mmol/L Chloride 111 H (98-107) mmol/L BUN 48 H (7-17) mg/dL Creatinine 1.75 H (0.52-1.04) mg/dL Glucose 124 H (74-99) mg/dL POC Glucose (mg/dL) (75-99) mg/dL Hemoglobin A1c (4.0-6.0) % Vitamin B12 1016.0 H (200.0-944.0) pg/mL 08/20/18 08/20/18 Range/Units 07:01 11:50 RBC (3.80-5.40) m/uL Hgb (11.4-16.0) gm/dL Hct (34.0-46.0) % MCHC (31.0-37.0) g/dL RDW (11.5-15.5) % Potassium (3.5-5.1) mmol/L Chloride (98-107) mmol/L BUN (7-17) mg/dL Creatinine (0.52-1.04) mg/dL Glucose (74-99) mg/dL POC Glucose (mg/dL) 143 H 162 H (75-99) mg/dL Hemoglobin A1c (4.0-6.0) % Vitamin B12 (200.0-944.0) pg/mL Microbiology - Last 24 Hours (Table) 08/17/18 18:00 Blood Culture - Preliminary Blood No Growth after 48 hours 08/17/18 18:00 Gram Stain - Final Leg - Left Wound Culture - Final Pseudomonas aeruginosa Providencia rettgeri Assessment and Plan Assessment: Left lower extremity cellulitis with chronic venous stasis ulceration, failed outpatient treatment-Pseudomonas and Providencia -Zosyn, discontinue vancomycin, plan on discharge home on Levaquin -ID and wound care recs appreciated -Blood cultures negative to date chronic kidney disease stage 3/4 with hyperkalemia -Appears that patient will need a low potassium diet on discharge and will need either Veltassa or Kayexalate daily. -Patient does have chronic kidney disease which appears to be at baseline -Repeat basic metabolic profile in a.m. Diabetes mellitus type 2 -Insulin requiring at home -Continue with basal/bolus insulin -Follow blood sugars -A1c 7 Chronic microcytic anemia -Workup in February revealed iron deficiency anemia, patient not currently on replacement -Patient denies bleeding, fecal occult blood pending Diastolic congestive heart failure, currently compensated, ejection fraction 50- 55% -Not chronically on any diuretics will not add at this point in time -Continue with Coreg -Not chronically an EULA inhibitor and not indicated with preserved ejection fraction and hyperkalemia COPD, currently compensated -As needed bronchodilators Hypertension -Currently controlled -Follow blood pressures closely Dyslipidemia -Statin Hyperkalemia, resolved DVT prophylaxis: Heparin Discussed with: Patient, nursing Anticipated discharge: [address]: home with resuming her home health and outpatient wound care therapy A total of 25 minutes was spent on the care of this complex patient more than 50 % of the time was spent in counseling and care coordination.
[2018-08-20 20:44] LABS: Glucose,Whole Blood 133 mg/dL (75-99)
[2018-08-20] MEDS: ATORVASTATIN 20 MG TAB PO SCH (21:03)
[2018-08-20] MEDS: GABAPENTIN 300 MG CAP PO SCH (21:03)
[2018-08-20] MEDS: traMADol 50 MG TAB PO PRN (21:03)
[2018-08-20] MEDS: INSULIN DETEMIR 100 UNIT/ML 10 ML VIAL SQ SCH (21:04)
[2018-08-21] MEDS: HEPARIN SODIUM,PORCINE 5,000 UNIT/ML 1 ML VIAL SQ SCH ×2 (00:17→09:44)
[2018-08-21] MEDS: PIPERACILLIN-TAZOBACTAM 3.375 GM in SODIUM CHLORIDE 0.9% 100 ML IVPB SCH ×2 (00:17→09:44)
[2018-08-21 07:17] LABS: Anisocytosis Slight; HCT 28.3 % (34.0-46.0); HGB 8.7 gm/dL (11.4-16.0); Hypochromasia Marked; MCH 27.8 pg (25.0-35.0); MCHC 30.6 g/dL (31.0-37.0); MCV 90.9 fL (80.0-100.0); Mean Platelet Volume 7.9; Platelet Count 263 k/uL (150-450); RBC 3.12 m/uL (3.80-5.40); RDW 16.6 % (11.5-15.5); WBC 6.3 k/uL (3.8-10.6)
[2018-08-21 07:19] LABS: Glucose,Whole Blood 98 mg/dL (75-99)
[2018-08-21 07:30] LABS: Calcium 8.2 mg/dL (8.4-10.2); Potassium 4.6 mmol/L (3.5-5.1)
[2018-08-21] MEDS: SYMBICORT 160-4.5 MCG INHALER INHALATION SCH (08:30)
[2018-08-21] MEDS: ASPIRIN 81 MG PO SCH (09:44)
[2018-08-21] MEDS: traMADol 50 MG TAB PO PRN (09:44)
[2018-08-21] MEDS: CARVEDILOL 12.5 MG TAB PO SCH (09:44)
[2018-08-21] MEDS ORDERED: LEVOFLOXACIN 750 MG TAB PO SCH (10:30)
[2018-08-21] MEDS: INSULIN ASPART 100 UNIT/ML 1 ML 10 ML VIAL SQ SCH (10:37)
[2018-08-21 10:40] VITALS: BP 124/76; PULSE 80; RESP 18; TEMP 98.2
--- NOTE | 2018-08-21 13:18 | P.DS ---
Providers Date of admission: 08/17/18 20:03 Expected date of discharge: 08/21/18 Attending physician: Duane Rudolph MD Consults: 08/17/18 22:45 Consult Physician Routine Consulting Provider: Jax Acuña Consult Reason/Comments: left leg cellulitis Do you want consulting provider notified?: Yes [facility] Course: Discharge Diagnosis: Pseudomonas and Providencia Left lower extremity cellulitis, failed outpatient treatment Chronic venous stasis ulceration Hyperkalemia with CKD III/IV Diabetes mellitus type 2 insulin requiring with good control Chronic microcytic anemia Compensated diastolic congestive heart failure with ejection fraction 50-55% ACC class C Compensated COPD Hypertension Dyslipidemia Hospital Course: Patient is a 57-year-old female with a past medical history of chronic kidney disease, diabetes, and diastolic congestive heart failure, as well as chronic venous stasis with wounds being treated at the wound care center who presented to the emergency department with complaints of lower extremity redness, swelling, and severe pain. In the ER she underwent an extensive evaluation. Her initial vital signs were within normal limits. Initial laboratory analysis showed hyperkalemia with a potassium of 5.9, her chronic kidney disease, and her chronic anemia. There was concern for failure of outpatient treatment as she had completed antibiotics 3 days prior. She was subsequently admitted for IV antibiotics. She required 2 doses of kayexelate to normalize her potassium. ID recommended awaiting culture and continuing zosyn and vanco. Culture came back with pseudomonas and providencia. Vancomycin was stopped. Her leg had less drainage and redness by 08/20. Her infection was susceptible to Levaquin. She did Have hyperkalemia. I suggested that she maintain and felt past, however she has tried this in the past and it causes severe nausea. She will therefore maintain with Kayexalate 15 g every other day. She'll complete an additional 5 days of Levaquin therapy. She will follow up with wound care next week. She will follow-up with visiting physician next week and already has home health care arranged. Wound care recommendations: Observe foam dressing over the wound, cover with Kerlix and Yusuf wrap change every 24-48 hours. Clean with soap and water. Patient seen and examined at bedside. She is having less pain in her left lower extremity. She also reports decreased edema. She denies any chest pain, shortness breath, nausea, vomiting, or diarrhea. We discussed following up with wound care this week, resuming home health care, and ensuring that she complete her course of oral antibiotics. Vital signs reviewed and stable. General: non toxic, no distress, appears older than stated age, obese Derm: Left lower extremity with areas of wall and pinpoint areas of blood flow, no warmth, decreased erythema, no edema warm, dry Head: atraumatic, normocephalic, symmetric Eyes: EOMI, no lid lag, anicteric sclera Mouth: no lip lesion, mucus membranes moist Cardiovascular: S1S2 reg, no murmur, positive posterior tibial pulse bilateral, Lungs: Decreased breath sounds bilateral bases, no rhonchi, no rales , no accessory muscle use Abdominal: soft, nontender to palpation, no guarding, no appreciable organomegaly Ext: no gross muscle atrophy, no edema, no contractures Neuro: CN II-XI grossly intact, no focal neuro deficits Psych: Alert, oriented, appropriate affect A total of 35 minutes of time were spent preparing this complex discharge summary . Pertinent Studies: None Patient Condition at Discharge: Good Plan - Discharge Summary Discharge Rx Participant: No New Discharge Prescriptions: New Levofloxacin [Levaquin] 750 mg PO DAILY #5 tab Sodium Polystyrene Sulfonate [Kayexalate] 15 gm PO DIRECTED 30 Days #1 bottle Continue Albuterol Sulfate [Proair Hfa] 2 puff INHALATION RT-QID PRN PRN Reason: Shortness Of Breath Atorvastatin [Lipitor] 20 mg PO HS Gabapentin [Neurontin] 300 mg PO HS #0 Budesonide-Formot 160-4.5 Mcg [Symbicort 160-4.5 Mcg Inhaler] 2 puff INHALATION RT-BID Aspirin 81 mg PO DAILY chew Clopidogrel [Plavix] 75 mg PO DAILY Carvedilol [Coreg] 12.5 mg PO BID Insulin Detemir [Levemir Flextouch] 30 units SQ HS Insulin Aspart [NovoLOG (formulary)] See Protocol SQ AC-TID Discharge Medication List Albuterol Sulfate [Proair Hfa] 2 puff INHALATION RT-QID PRN 02/18/18 [History] Atorvastatin [Lipitor] 20 mg PO HS 02/18/18 [History] Gabapentin [Neurontin] 300 mg PO HS #0 02/23/18 [Rx] Budesonide-Formot 160-4.5 Mcg [Symbicort 160-4.5 Mcg Inhaler] 2 puff INHALATION RT-BID 05/30/18 [History] Aspirin 81 mg PO DAILY chew 06/02/18 [Rx] Carvedilol [Coreg] 12.5 mg PO BID 08/17/18 [History] Clopidogrel [Plavix] 75 mg PO DAILY 08/17/18 [History] Insulin Aspart [NovoLOG (formulary)] See Protocol SQ AC-TID 08/17/18 [History] Insulin Detemir [Levemir Flextouch] 30 units SQ HS 08/17/18 [History] Levofloxacin [Levaquin] 750 mg PO DAILY #5 tab 08/21/18 [Rx] Sodium Polystyrene Sulfonate [Kayexalate] 15 gm PO DIRECTED 30 Days #1 bottle 08/21/18 [Rx] Follow up Appointment(s)/Referral(s): Jax Acuña MD [STAFF PHYSICIAN] - 1 Week [facility], [NON-STAFF] - [facility],. [NON-STAFF] - 1 Week Arnol Santiago MD [Primary Care Provider] - 1-2 days Patient Instructions/Handouts: Heart Failure (DC), Cellulitis (DC) Activity/Diet/Wound Care/Special Instructions: Heart healthy, carb consistent diet Activity as tolerated Place absorptive foam dressing over wound, cover with Kerlix and then Yusuf wrap. Change every 24-48 hours. Clean with soap and water. Discharge Disposition: HOME WITH HOME HEALTH SERVICES
== END 2018-08-21 11:30 | disposition home health service (06) | DRG 603 ==
LOC: EC 17:17 → 4SSUR 20:03
PROVIDERS: ADMIT Internal Medicine; ATTEND Internal Medicine
DX: L03.116 Cellulitis of left lower limb (principal); I13.0 Hypertensive heart and chronic kidney disease with heart failure and stage 1 through stage 4 chronic kidney disease, or unspecified chronic kidney disease; I50.42 Chronic combined systolic (congestive) and diastolic (congestive) heart failure; L97.909 Non-pressure chronic ulcer of unspecified part of unspecified lower leg with unspecified severity; N18.4 Chronic kidney disease, stage 4 (severe); D50.9 Iron deficiency anemia, unspecified; E11.22 Type 2 diabetes mellitus with diabetic chronic kidney disease; E11.51 Type 2 diabetes mellitus with diabetic peripheral angiopathy without gangrene; E11.622 Type 2 diabetes mellitus with other skin ulcer; E78.5 Hyperlipidemia, unspecified; E87.5 Hyperkalemia; F32.9 Major depressive disorder, single episode, unspecified; I25.10 Atherosclerotic heart disease of native coronary artery without angina pectoris; I25.2 Old myocardial infarction; I87.2 Venous insufficiency (chronic) (peripheral); J44.9 Chronic obstructive pulmonary disease, unspecified; K21.9 Gastro-esophageal reflux disease without esophagitis; M06.9 Rheumatoid arthritis, unspecified; Z79.02 Long term (current) use of antithrombotics/antiplatelets; Z79.4 Long term (current) use of insulin; Z79.51 Long term (current) use of inhaled steroids; Z79.82 Long term (current) use of aspirin; Z82.49 Family history of ischemic heart disease and other diseases of the circulatory system; Z87.891 Personal history of nicotine dependence; Z95.1 Presence of aortocoronary bypass graft; F40.240 Claustrophobia; B96.5 Pseudomonas (aeruginosa) (mallei) (pseudomallei) as the cause of diseases classified elsewhere
CPT/HCPCS: 36415; 80048; 80053; 81003; 82607; 83036; 83540; 83550; 83605; 83735; 85025; 85027; 85610; 85652; 85730; 86038; 86140; 87040; 87070; 87077; 87186; 87205; 93005; 94640; 96365; 96366; 99285

== ENCOUNTER → 2018-09-06 | Outpatient (CLI) | payer MEDICARE, OTHER | END | disposition home or self-care (01) | LOC: LABWHC1 11:37 | PROVIDERS: ATTEND Nurse Practitioner Family | DX: E63.8 Other specified nutritional deficiencies (principal) | CPT/HCPCS: 36415; 84134 ==

== ENCOUNTER 2019-02-11 17:14 | Inpatient (IN) | payer MEDICARE, OTHER ==
[2019-02-11] MEDS ORDERED: MORPHINE SULFATE 4 MG/ML SYRINGE IVP STA (17:44)
--- NOTE | 2019-02-11 17:57 | ED ---
Extremity Problem HPI - General Chief complaint: Extremity Problem,Nontraumatic Stated complaint: LOWER LEG PAIN Time Seen by Provider: 02/11/19 17:16 Source: patient, EMS Mode of arrival: EMS Limitations: no limitations - History of Present Illness Initial comments: 58-year-old female patient presents to the emergency department today for evaluation of bilateral lower extremity swelling, bruising, and pain. Patient states that she does have chronic ulcers to the left posterior calf and the right posterior heel. Patient states that she does get weekly wound care with wrapping of the legs every Wednesday. Patient states her last wrapping was this l ast Wednesday. Patient states that over the last couple of days seems that her legs and become more swollen. Today she states that she was unable to get out of bed and walk due to the pain. Patient denies any fevers or chills with this. Patient states she has noticed an increase in weeping and odor from her legs. Patient denies any recent rash, shortness breath, chest pain, abdominal pain, nausea, vomiting, diarrhea, constipation, back pain, numbness, tingling, dizziness, weakness, hematuria, dysuria, urinary urgency, urinary frequency, headache, visual changes, or any other complaints. - Related Data Home Medications Medication Instructions Recorded Confirmed Albuterol Sulfate [Proair Hfa] 2 puff INHALATION RT-QID PRN 02/18/18 01/10/19 Atorvastatin [Lipitor] 20 mg PO HS 02/18/18 01/10/19 Budesonide-Formot 160-4.5 Mcg 2 puff INHALATION RT-BID 05/30/18 01/10/19 [Symbicort 160-4.5 Mcg Inhaler] Carvedilol [Coreg] 12.5 mg PO BID 08/17/18 01/10/19 Clopidogrel [Plavix] 75 mg PO DAILY 08/17/18 01/10/19 INSULIN ASPART (NovoLOG) [NovoLOG See Protocol SQ AC-TID 08/17/18 01/10/19 (formulary)] Insulin Detemir [Levemir Flextouch] 30 units SQ HS 08/17/18 01/10/19 Lidocaine 5% Oint [Xylocaine 5% 1 applic TOPICAL DAILY PRN 12/30/18 01/10/19 Oint] Previous Rx's Medication Instructions Recorded Gabapentin [Neurontin] 300 mg PO HS #0 02/23/18 Aspirin 81 mg PO DAILY chew 06/02/18 Ferrous Sulfate [Feosol] 325 mg PO BID #60 tab 08/21/18 Furosemide [Lasix] 20 mg PO BID #60 tablet 01/03/19 Potassium Chloride ER [K-Dur 20] 20 meq PO DAILY #30 tab 01/03/19 Allergies Allergy/AdvReac Type Severity Reaction Status Date / Time pollen extracts AdvReac Mild Itching Verified 02/11/19 17:17 Review of Systems ROS Statement: Those systems with pertinent positive or pertinent negative responses have been documented in the HPI. ROS Other: All systems not noted in ROS Statement are negative. Past Medical History Past Medical History: Diabetes Mellitus, GERD/Reflux, Hyperlipidemia, Hypertension, Myocardial Infarction ([place]), Rheumatoid Arthritis ([place]) Additional Past Medical History / Comment(s): neuropathy,edentulous, cellulitis lt leg,cataracats, past uterine cysts, "gallstones", chronic back pain.. "i've had a rash for this past year on shoulders,bra line and lt leg". Last Myocardial Infarction Date:: 2014 History of Any Multi-Drug Resistant Organisms: ESBL, MRSA Date of last positivie culture/infection: 11/15/18 MRSA MDRO Source:: MRSA LEG 10/13/17 ESBL URINE Past Surgical History: Appendectomy, Section, Coronary Bypass/CABG Additional Past Surgical History / Comment(s): d&c,, x2, 2 vessel cabg,uterine ablation Past Anesthesia/Blood Transfusion Reactions: No Reported Reaction Additional Past Anesthesia/Blood Transfusion Reaction / Comment(s): clausterphobia Past Psychological History: Depression Smoking Status: Former smoker Past Alcohol Use History: None Reported Past Drug Use History: None Reported - Past Family History Mother Additional Family Medical History / Comment(s): anuerysm Father Family Medical History: Myocardial Infarction ([place]) Sister(s) Additional Family Medical History / Comment(s): one sister had "hole in her heart" and a kidney transplant and another sister had ms. General Exam Limitations: no limitations General appearance: alert, in no apparent distress, other (Social well-develop ed, well-nourished adult female patient in no acute distress. Vital signs upon presentation are temperature 98.3F, pulse 64, respirations 18, blood pressure 135/60, pulse ox 94% on room air.) Respiratory exam: Present: normal lung sounds bilaterally. Absent: respiratory distress, wheezes, rales, rhonchi, stridor Cardiovascular Exam: Present: regular rate, normal rhythm, normal heart sounds. Absent: systolic murmur, diastolic murmur, rubs, gallop, clicks GI/Abdominal exam: Present: soft, normal bowel sounds. Absent: distended, tenderness, guarding, rebound, rigid Extremities exam: Present: full ROM, tenderness (Generalized tenderness to the bilateral lower legs), normal capillary refill, other (There is generalized 2+ pitting edema to the bilateral lower legs. Patient has skin sloughing and open wounds noted over the anterior aspects of the bilateral messer. She has a chronic ulcer noted to the left calf. Chronic ulcer noted to the right heel. Skin is warm and erythematous. There is drainage of odorous yellow fluid from the legs. There are vesicles noted to the right proximal lower leg anteriorly.). Absent: normal inspection, pedal edema, joint swelling, calf tenderness Neurological exam: Present: alert, oriented X3, CN II-XII intact Psychiatric exam: Present: normal affect, normal mood Skin exam: Present: warm, dry, intact, normal color. Absent: rash Course Vital Signs 02/11/19 02/11/19 02/11/19 17:17 17:58 18:30 Temperature 98.3 F Pulse Rate 61 60 59 L Respiratory 18 18 16 Rate Blood Pressure 135/60 134/54 131/57 O2 Sat by Pulse 94 L 96 95 Oximetry Medical Decision Making - Medical Decision Making 58-year-old female patient presents to the emergency department today for evaluation of increased pain and swelling to her lower legs. Patient is being treated for chronic wound at the wound center once a week. Physical examination did reveal 2+ pitting edema to the lower legs, multiple vesicles and open wounds noted. Physical chronic wound to the left posterior calf, and went to the right heel. Patient is afebrile. Vital signs stable. White blood cell count is normal. We'll start antibiotics and admitted for wound care and pain management. Patient admitted to Dr. Quinones. - Lab Data Result diagrams: 02/11/19 17:30 02/11/19 17:30 Lab Results 02/11/19 02/11/19 02/11/19 Range/Units 17:30 17:30 17:30 WBC 5.5 (3.8-10.6) k/uL RBC 3.90 (3.80-5.40) m/uL Hgb 9.9 L (11.4-16.0) gm/dL Hct 33.3 L (34.0-46.0) % MCV 85.4 (80.0-100.0) fL MCH 25.5 (25.0-35.0) pg MCHC 29.9 L (31.0-37.0) g/dL RDW 18.2 H (11.5-15.5) % Plt Count 186 (150-450) k/uL Neutrophils % 77 % Lymphocytes % 10 % Monocytes % 7 % Eosinophils % 4 % Basophils % 0 % Neutrophils # 4.2 (1.3-7.7) k/uL Lymphocytes # 0.6 L (1.0-4.8) k/uL Monocytes # 0.4 (0-1.0) k/uL Eosinophils # 0.2 (0-0.7) k/uL Basophils # 0.0 (0-0.2) k/uL Hypochromasia Marked Anisocytosis Slight Sodium 141 (137-145) mmol/L Potassium 5.2 H (3.5-5.1) mmol/L Chloride 110 H (98-107) mmol/L Carbon Dioxide 25 (22-30) mmol/L Anion Gap 6 mmol/L BUN 60 H (7-17) mg/dL Creatinine 1.58 H (0.52-1.04) mg/dL Est GFR (CKD-EPI)AfAm 41 (>60 ml/min/1.73 sqM) Est GFR (CKD-EPI)NonAf 36 (>60 ml/min/1.73 sqM) Glucose 96 (74-99) mg/dL Plasma Lactic Acid Sylvester 1.0 (0.7-2.0) mmol/L Calcium 8.7 (8.4-10.2) mg/dL Total Bilirubin 1.3 (0.2-1.3) mg/dL AST 16 (14-36) U/L ALT 20 (9-52) U/L Alkaline Phosphatase 146 H (38-126) U/L Total Protein 6.7 (6.3-8.2) g/dL Albumin 3.6 (3.5-5.0) g/dL Disposition Clinical Impression: Cellulitis of both lower extremities, Chronic wound of extremity Disposition: [facility] Condition: Serious Referrals: Arnol Santiago MD [Primary Care Provider] - 1-2 days Decision to Admit Reason: Admit from EC Decision Date: 02/11/19 Decision Time: 19:04
[2019-02-11 18:18] LABS: Anisocytosis Slight; Basophils % (A) 0 %; Eosinophils # (A) 0.2 k/uL (0-0.7); Eosinophils % (A) 4 %; HCT 33.3 % (34.0-46.0); HGB 9.9 gm/dL (11.4-16.0); Hypochromasia Marked; Lymphocytes # (A) 0.6 k/uL (1.0-4.8); Lymphocytes % (A) 10 %; MCH 25.5 pg (25.0-35.0); MCHC 29.9 g/dL (31.0-37.0); MCV 85.4 fL (80.0-100.0); Mean Platelet Volume 7.7; Monocytes # (A) 0.4 k/uL (0-1.0); Monocytes % (A) 7 %; Neutrophils # (A) 4.2 k/uL (1.3-7.7); Neutrophils % (A) 77 %; Platelet Count 186 k/uL (150-450); RDW 18.2 % (11.5-15.5); WBC 5.5 k/uL (3.8-10.6)
[2019-02-11 18:40] LABS: Albumin 3.6 g/dL (3.5-5.0); Calcium 8.7 mg/dL (8.4-10.2); Potassium 5.2 mmol/L (3.5-5.1); Total Bilirubin 1.3 mg/dL (0.2-1.3); Total Protein 6.7 g/dL (6.3-8.2)
[2019-02-11] MEDS ORDERED: ACETAMINOPHEN TAB 325 MG TAB PO PRN (18:57)
[2019-02-11] MEDS ORDERED: NALOXONE 0.4 MG/ML 1 ML VIAL IV PRN (18:57)
[2019-02-11] MEDS ORDERED: MORPHINE SULFATE 4 MG/ML SYRINGE IV PRN (18:57)
[2019-02-11] MEDS: SODIUM CHLORIDE 0.9% 1,000 ML IV SCH (20:25)
[2019-02-11 21:37] LABS: Glucose,Whole Blood 93 mg/dL (75-99)
[2019-02-11] MEDS ORDERED: POTASSIUM CHLORIDE ER 20 MEQ TAB.ER PO SCH (22:15)
[2019-02-11] MEDS: ASPIRIN 81 MG PO SCH (22:28)
[2019-02-11] MEDS: GABAPENTIN 300 MG CAP PO SCH (22:28)
[2019-02-11] MEDS: CLOPIDOGREL 75 MG TAB PO SCH (22:28)
[2019-02-11] MEDS: ATORVASTATIN 20 MG TAB PO SCH (22:28)
[2019-02-12 01:05] VITALS: BMI 59.7
[2019-02-12 07:25] LABS: Glucose,Whole Blood 171 mg/dL (75-99)
[2019-02-12 07:58] LABS: Albumin 3.4 g/dL (3.5-5.0); Calcium 8.3 mg/dL (8.4-10.2); Potassium 5.2 mmol/L (3.5-5.1); Total Bilirubin 1.3 mg/dL (0.2-1.3); Total Protein 6.3 g/dL (6.3-8.2)
[2019-02-12 08:01] LABS: Anisocytosis Slight; Basophils % (A) 1 %; Eosinophils # (A) 0.3 k/uL (0-0.7); Eosinophils % (A) 5 %; HCT 28.5 % (34.0-46.0); Hypochromasia Marked; Lymphocytes # (A) 0.7 k/uL (1.0-4.8); Lymphocytes % (A) 11 %; MCH 25.4 pg (25.0-35.0); MCHC 29.3 g/dL (31.0-37.0); MCV 86.8 fL (80.0-100.0); Mean Platelet Volume 7.9; Monocytes # (A) 0.4 k/uL (0-1.0); Monocytes % (A) 7 %; Neutrophils # (A) 4.9 k/uL (1.3-7.7); Neutrophils % (A) 76 %; Platelet Count 193 k/uL (150-450); RBC 3.29 m/uL (3.80-5.40); RDW 18.1 % (11.5-15.5); WBC 6.5 k/uL (3.8-10.6)
[2019-02-12 08:10] LABS: HGB 8.4 gm/dL (11.4-16.0)
[2019-02-12] MEDS: INSULIN ASPART (NovoLOG) 100 UNIT/ML VIAL SQ SCH ×4 (08:18→21:48)
[2019-02-12] MEDS: ASPIRIN 81 MG PO SCH (08:18)
[2019-02-12] MEDS: FUROSEMIDE 20 MG TAB PO SCH ×2 (08:18→21:49)
[2019-02-12] MEDS: CLOPIDOGREL 75 MG TAB PO SCH (08:18)
[2019-02-12] MEDS: PANTOPRAZOLE 40 MG TABLET PO SCH (08:18)
[2019-02-12] MEDS: CARVEDILOL 12.5 MG TAB PO SCH ×3 (08:18→18:16)
[2019-02-12 11:45] LABS: Glucose,Whole Blood 178 mg/dL (75-99)
[2019-02-12 17:05] LABS: Glucose,Whole Blood 212 mg/dL (75-99)
--- NOTE | 2019-02-12 17:44 | HP ---
HISTORY AND PHYSICAL DATE OF ADMISSION: February 11, 2019. DATE OF SERVICE: February 12, 2019. PRESENTING COMPLAINT: Infected lower extremity. HISTORY OF PRESENTING COMPLAINT: This is a very pleasant 58-year-old patient who follows with [facility]. The patient's chronic stable medical conditions include diabetes mellitus type 2, GERD, hypertension, hyperlipidemia, rheumatoid arthritis, peripheral neuropathy, chronic low back pain, and coronary artery disease. The patient does follow with the [facility] every Wednesday and get some wound care done. Patient has a diabetic ulcer on the left lower extremity and had a trauma to the right lower extremity from a bedpost and gets wound care done. The patient normally uses a wheelchair to get about. The patient presents with increasing weeping and swelling of the lower extremity, more so on the left leg. No obvious fever and chills. No pain and admitted for the same. ID was consulted. The patient is unsure who she sees in the Wound Center. REVIEW OF SYSTEMS: CONSTITUTIONAL: Tired. HEENT None. RESPIRATORY none. CARDIOVASCULAR: GASTROINTESTINAL: None. GENITOURINARY: None. MUSCULOSKELETAL: Pain in multiple joints. DERMATOLOGICAL: As above. LYMPHATICS: None. PSYCHIATRY none. NEUROLOGICAL: Peripheral neuropathy. PAST MEDICAL HISTORY: Heart failure, diabetes mellitus type 2, GERD, hyperlipidemia, hypertension, myocardial infarction, rheumatoid arthritis, peripheral neuropathy, gallstones, chronic back pain. PAST SURGICAL HISTORY: Appendectomy, , coronary artery bypass, uterine ablation. PSYCH HISTORY: Depression. SOCIAL HISTORY: The patient lives at [facility]. The patient is a . Uses a walker and a wheelchair has care provider once a week. No smoking. No alcohol. He stopped drinking back in 1990 and smoked for 11 years, stopping at age of 40, was smoking 3 packs a day. FAMILY HISTORY: Of stroke, diabetes, myocardial infarction, aneurysm. HOME MEDICATIONS: 1. Potassium 20 mEq a day. 2. Protonix 40 mg p.o. daily. 3. Levemir 30 units subcu q.h.s. 4. NovoLog per scale. 5. Neurontin 300 mg q.h.s. 6. Lasix 20 mg b.i.d. 7. Plavix 75 mg daily. 8. Coreg 12.5 p.o. b.i.d. 9. Lipitor 20 mg q.h.s. 10.Aspirin 81 mg daily. 11.Albuterol 2 puffs q.i.d. p.r.n. ALLERGIES: POLLEN EXTRACT. PHYSICAL EXAMINATION: VITAL SIGNS: Vital signs on presentation temperature 98.3, pulse 51, respiratory 18, blood pressure 135/60, pulse ox 94 percent on room air. GENERAL APPEARANCE: Well built, BMI 59%, sitting up, not in distress. EYES: Pupils equal. Conjunctivae normal. HEENT: External appearance of nose and ears normal. Oral cavity normal. NECK: JVD not raised. Mass not palpable. RESPIRATORY: Effort normal. LUNGS: Distant breath sounds. CARDIOVASCULAR: Heart sounds muffled. Some edema. ABDOMEN: Distended, soft. Liver and spleen not palpable. LYMPHATICS: No lymph nodes palpable in the neck and axilla. PSYCHIATRY: Alert and oriented times three. Mood and affect normal. DERMATOLOGICAL: Area of redness and bogginess in the skin folds of the lower abdominal wall, lower extremity, currently in a dressing. Pictures are in the chart. INVESTIGATIONS: White count 5.5, hemoglobin 9.9, repeat 8.4, platelets normal. Potassium 5.2, BUN 60, creatinine 1.58. Patient's creatinine is 1.53 and it was 1.81 in August of last year. ASSESSMENT: 1. Acute bilateral lower extremity cellulitis of more than 24 hours duration in a patient who already has a left leg diabetic wound. 2. Chronic kidney disease stage 3 from diabetic nephropathy and nephrosclerosis. 3. Morbid obesity BMI 59.7. 4. Diabetes mellitus type 2, chronically on insulin. 5. Gastroesophageal reflux disease. 6. Essential hypertension. 7. Hyperlipidemia. 8. Coronary artery disease with prior history of coronary bypass. 9. Diabetic peripheral neuropathy. 10.Chronic low back pain. 11.Chronic medical debility, patient does use a walker and a wheelchair. PLAN: Home medications resumed. Accu-Cheks will be followed. Infectious Disease was consulted for wound care and cellulitis. Care was discussed with the patient. Questions were answered. Accu-Cheks will be followed. Copy to [facility]. MMODL / IJN: [id number] /
[2019-02-12] MEDS: ENOXAPARIN 40 MG/0.4 ML SYRINGE SQ SCH (18:00)
[2019-02-12] MEDS: SODIUM CHLORIDE 0.9% 1,000 ML IV SCH (19:00)
[2019-02-12 21:12] LABS: Glucose,Whole Blood 201 mg/dL (75-99)
[2019-02-12] MEDS: ATORVASTATIN 20 MG TAB PO SCH (21:49)
[2019-02-12] MEDS: INSULIN DETEMIR (LEVEMIR) 100 UNIT/ML SYR SQ SCH (21:49)
[2019-02-12] MEDS: GABAPENTIN 300 MG CAP PO SCH (21:49)
[2019-02-12] MEDS: DAPTOmycin 500 MG in SODIUM CHLORIDE 0.9% 50 ML IVPB SCH (21:58)
[2019-02-13 06:56] LABS: Glucose,Whole Blood 122 mg/dL (75-99)
[2019-02-13] MEDS: INSULIN ASPART (NovoLOG) 100 UNIT/ML VIAL SQ SCH ×4 (07:26→21:11)
[2019-02-13] MEDS: ALBUTEROL NEBULIZED 2.5 MG/3 ML INHALATION PRN (07:48)
[2019-02-13] MEDS: PANTOPRAZOLE 40 MG TABLET PO SCH (08:49)
[2019-02-13] MEDS: CARVEDILOL 12.5 MG TAB PO SCH ×2 (08:50→17:25)
[2019-02-13] MEDS: FUROSEMIDE 20 MG TAB PO SCH ×2 (08:50→21:10)
[2019-02-13] MEDS: ENOXAPARIN 40 MG/0.4 ML SYRINGE SQ SCH (08:50)
[2019-02-13] MEDS: ASPIRIN 81 MG PO SCH (08:50)
[2019-02-13] MEDS: CLOPIDOGREL 75 MG TAB PO SCH (08:50)
--- NOTE | 2019-02-13 10:25 | P.CONS ---
History of Present Illness - Reason for Consult Consult date: 02/13/19 Cellulitis - History of Present Illness This is a 58-year-old female well known to ID service as she has chronic bilateral lower extremity ulcerations and [facility]. Her last point it was last Wednesday. She states she was doing fine following that but knows she needs to keep her legs elevated. On Wednesday she found that her legs were sopping wet. On Wednesday she was too weak to get out of bed and she slept until 3p.m. She called her caregiver and she was still too weak to get up. She had increasing pain to the right heel and also chills. She came into [facility] emergency center for evaluation. She was found to be afebrile, white count 6.5, lactic acid 1.0. Creatinine was 1.53 which appears to be chronic. Blood culture was obtained. Patient was placed on Rocephin and admitted to the [facility] floor. Patient continues to have significant amount of serous and in some areas serosanguineous drainage from her lower extremities. Previous wound culture from November of this year is positive for MRSA, Proteus mirabilis, Acinetobacter and previous to and August wound culture was Pseudomonas aeruginosa and Providencia rettgeri Review of Systems Constitutional: Reports anorexia, Reports chills, Reports daytime sleepiness, Reports fatigue, Reports lethargy, Reports malaise, Reports poor appetite, Reports weakness, Denies fever Eyes: denies blurred vision, denies pain Ears, nose, mouth and throat: Denies dental pain, Denies dysphagia, Denies mouth pain, Denies nasal congestion, Denies nasal discharge, Denies vertigo Cardiovascular: Reports edema, Reports leg edema, Denies decreased exercise tolerance, Denies dyspnea on exertion, Denies lightheadedness, Denies shortness of breath, Denies syncope Respiratory: Denies congestion, Denies cough, Denies cough with sputum, Denies dyspnea, Denies excessive sputum, Denies hemoptysis, Denies home oxygen, Denies wheezing Gastrointestinal: Denies abdominal pain, Denies diarrhea, Denies loss of appetite, Denies nausea, Denies vomiting Genitourinary: Denies dysuria Musculoskeletal: Reports gait dysfunction, Reports muscle weakness Integumentary: Reports rash, Reports sores, Reports wounds, Denies pruritus Neurological: Reports gait dysfunction, Denies aphasia, Denies balance difficulties, Denies change in mentation, Denies change in speech, Denies seizures Psychiatric: Denies anxiety, Denies depression Endocrine: Denies fatigue, Denies weight change Past Medical History Past Medical History: Heart Failure, Diabetes Mellitus, GERD/Reflux, Hyperlipidemia, Hypertension, Myocardial Infarction ([place]), Rheumatoid Arthritis ([place]) Additional Past Medical History / Comment(s): neuropathy,edentulous, cellulitis lt leg,cataracats, past uterine cysts, "gallstones", chronic back pain.. "i've had a rash for this past year on shoulders,bra line and lt leg". Last Myocardial Infarction Date:: 2014 History of Any Multi-Drug Resistant Organisms: ESBL, MRSA Year Discovered:: 11/15/18 MRSA MDRO Source:: MRSA LEG 10/13/17 ESBL URINE Past Surgical History: Appendectomy, Section, Coronary Bypass/CABG Additional Past Surgical History / Comment(s): d&c,, x2, 2 vessel cabg,uterine ablation. Double bypass 7 years ago this month Past Anesthesia/Blood Transfusion Reactions: No Reported Reaction Additional Past Anesthesia/Blood Transfusion Reaction / Comm: clausterphobia Past Psychological History: Depression Additional Psychological History / Comment(s): pt lives alone at [facility]. (lost her of 30 years in jun 2017). uses walker when up and wheelchair for longer distances. has care provider thru her insurance company once a week. Denies tobacco smoking or alcohol use. Medically disabled. No experience or international travel. No animals in the home Smoking Status: Former smoker Past Alcohol Use History: None Reported Additional Past Alcohol Use History / Comment(s): started smoking at age 29 and quit at age 40 was smoking 3 ppd. in past used to drink but none since 1990 Past Drug Use History: None Reported - Past Family History Mother Additional Family Medical History / Comment(s): anuerysm Father Family Medical History: CVA/TIA, Diabetes Mellitus, Myocardial Infarction ([place]) Sister(s) Additional Family Medical History / Comment(s): one sister had "hole in her heart" and a kidney transplant and another sister had ms. Medications and Allergies Home Medications Medication Instructions Recorded Confirmed Type Albuterol Sulfate [Proair Hfa] 2 puff INHALATION RT-QID PRN 02/18/18 02/11/19 History Atorvastatin [Lipitor] 20 mg PO HS 02/18/18 02/11/19 History Gabapentin [Neurontin] 300 mg PO HS #0 02/23/18 02/11/19 Rx Aspirin 81 mg PO DAILY chew 06/02/18 02/11/19 Rx Carvedilol [Coreg] 12.5 mg PO BID 08/17/18 02/11/19 History Clopidogrel [Plavix] 75 mg PO DAILY 08/17/18 02/11/19 History INSULIN ASPART (NovoLOG) [NovoLOG See Protocol SQ AC-TID 08/17/18 02/11/19 History (formulary)] Insulin Detemir [Levemir Flextouch] 30 units SQ HS 08/17/18 02/11/19 History Furosemide [Lasix] 20 mg PO BID #60 tablet 01/03/19 02/11/19 Rx Potassium Chloride ER [K-Dur 20] 20 meq PO DAILY #30 tab 01/03/19 02/11/19 Rx Pantoprazole [Protonix] 40 mg PO DAILY 02/11/19 02/11/19 History Allergies Allergy/AdvReac Type Severity Reaction Status Date / Time pollen extracts AdvReac Mild Itching Verified 02/11/19 20:27 Physical Exam Vitals: Vital Signs Temp Pulse Pulse Resp BP Pulse Ox 02/13/19 08:00 86 02/13/19 07:48 84 02/13/19 06:58 97.9 F 56 L 18 128/57 96 02/13/19 01:57 97.6 F 56 L 17 119/70 98 02/12/19 23:00 98.1 F 71 17 130/52 96 02/12/19 14:45 98 F 57 L 16 128/52 95 Intake and Output 02/12/19 02/13/19 02/13/19 22:59 06:59 14:59 Intake Total 296 530 Balance 296 530 Intake: Intake, IV Titration 50 Amount DAPTOmycin 500 mg In 50 Sodium Chloride 0.9% 50 ml @ 100 mls/hr IVPB Q24H [facility] Rx#:[id number] Oral 296 480 Other: # Voids 1 1 Gen: This is a morbidly obese 58-year-old female. Patient is resting in bed with head of the bed of appears to be comfortable and in no acute distress. HEENT: Head is atraumatic, normocephalic. Pupils equal, round. Sclerae is anicteric. Conjunctiva pink. Mucous members of the mouth are moist. Patient is edentulous. No thrush noted. NECK: Supple. No JVD. No lymphadenopathy. No thyromegaly. LUNGS: Diminished. No wheezes or rhonchi. No intercostal retractions. HEART: Regular rate and rhythm. No murmur. ABDOMEN: Morbidly obese. Soft. Bowel sounds are present. No masses. No tenderness. Mild erythema under abdominal folds and moisture noted under bilateral breasts. EXTREMITIES: 2+ bilateral pedal edema. Large dressings in place of bilateral lower extremities was not removed for evaluation. Significant serous and in so me areas serosanguineous drainage. NEUROLOGICAL: Patient is awake, alert and oriented x3. Cranial nerves 2 through 12 are grossly intact. Results Results: Laboratory Results WBC 6.5 k/uL (3.8-10.6) 02/12/19 07:11 RBC 3.29 m/uL (3.80-5.40) L 02/12/19 07:11 Hgb 8.4 gm/dL (11.4-16.0) L D 02/12/19 07:11 Hct 28.5 % (34.0-46.0) L 02/12/19 07:11 MCV 86.8 fL (80.0-100.0) 02/12/19 07:11 MCH 25.4 pg (25.0-35.0) 02/12/19 07:11 MCHC 29.3 g/dL (31.0-37.0) L 02/12/19 07:11 RDW 18.1 % (11.5-15.5) H 02/12/19 07:11 Plt Count 193 k/uL (150-450) 02/12/19 07:11 Neutrophils % 76 % 02/12/19 07:11 Lymphocytes % 11 % 02/12/19 07:11 Monocytes % 7 % 02/12/19 07:11 Eosinophils % 5 % 02/12/19 07:11 Basophils % 1 % 02/12/19 07:11 Neutrophils # 4.9 k/uL (1.3-7.7) 02/12/19 07:11 Lymphocytes # 0.7 k/uL (1.0-4.8) L 02/12/19 07:11 Monocytes # 0.4 k/uL (0-1.0) 02/12/19 07:11 Eosinophils # 0.3 k/uL (0-0.7) 02/12/19 07:11 Basophils # 0.0 k/uL (0-0.2) 02/12/19 07:11 Hypochromasia Marked 02/12/19 07:11 Anisocytosis Slight 02/12/19 07:11 Sodium 141 mmol/L (137-145) 02/12/19 07:11 Potassium 5.2 mmol/L (3.5-5.1) H 02/12/19 07:11 Chloride 110 mmol/L (98-107) H 02/12/19 07:11 Carbon Dioxide 24 mmol/L (22-30) 02/12/19 07:11 Anion Gap 7 mmol/L 02/12/19 07:11 BUN 61 mg/dL (7-17) H 02/12/19 07:11 Creatinine 1.53 mg/dL (0.52-1.04) H 02/12/19 07:11 Est GFR (CKD-EPI)AfAm 43 (>60 ml/min/1.73 sqM) 02/12/19 07:11 Est GFR (CKD-EPI)NonAf 37 (>60 ml/min/1.73 sqM) 02/12/19 07:11 Glucose 152 mg/dL (74-99) H 02/12/19 07:11 POC Glucose (mg/dL) 122 mg/dL (75-99) H 02/13/19 06:55 POC Glu [employer] Rigger ID Gian Mena 02/13/19 06:55 Plasma Lactic Acid Sylvester 1.0 mmol/L (0.7-2.0) 02/11/19 17:30 Calcium 8.3 mg/dL (8.4-10.2) L 02/12/19 07:11 Total Bilirubin 1.3 mg/dL (0.2-1.3) 02/12/19 07:11 AST 14 U/L (14-36) 02/12/19 07:11 ALT 24 U/L (9-52) 02/12/19 07:11 Alkaline Phosphatase 138 U/L (38-126) H 02/12/19 07:11 Total Protein 6.3 g/dL (6.3-8.2) 02/12/19 07:11 Albumin 3.4 g/dL (3.5-5.0) L 02/12/19 07:11 CBC & Chem 7: 02/12/19 07:11 02/12/19 07:11 Labs: Abnormal Lab Results - Last 24 Hours (Table) 02/12/19 02/12/19 02/12/19 Range/Units 11:33 16:54 21:00 POC Glucose (mg/dL) 178 H 212 H 201 H (75-99) mg/dL 02/13/19 Range/Units 06:55 POC Glucose (mg/dL) 122 H (75-99) mg/dL Microbiology - Last 24 Hours (Table) 02/11/19 17:30 Blood Culture - Preliminary Blood No Growth after 24 hours Assessment and Plan Plan: This is a 58-year-old female patient well-known to ID service as she has chronic wounds to the lower extremities and follows in the wound healing Center. Patient presents with significant drainage from these areas. Wound culture will be obtained. Blood cultures status received. Patient is currently on Rocephin Local wound care will be addressed. Continue supportive care. Further recommendations as patient regresses. The above dictated assessment and findings were discussed with Dr. Acuña. The impression and plan of care have been directed as dictated. Dora Armenta nurse practitioner acting as scribe for Dr. Acuña.t
[2019-02-13 11:45] LABS: Glucose,Whole Blood 113 mg/dL (75-99)
--- NOTE | 2019-02-13 14:31 | CDI ---
Documentation Clarification Form Date: 02/13/2019 2:17:51 PM From: Emilia Vera RN, CCDS Admit Date: 02/11/2019 7:50:00 PM Patient Name: Grecia Mendez Visit Number: [id number] ATTENTION: The Clinical Documentation Specialists (CDI) and [facility] Coding Staff appreciate your assistance in clarifying documentation. Please respond to the clarification below the line at the bottom and electronically sign. The CDI & [facility] Coding staff will review the response and follow-up if needed. Please note: Queries are made part of the Legal Health Record. If you have any questions, please contact the author of this message via ITS. Dr. Bobby Quinones CHF is documented in the PM[facility] and requires further specificity. History/Risk Factors: Heart Failure, DM, [place], HTN, Dm nephropathy and nephrosclerosisis Clinical Indicators: VS/Pulse OX: Temp 98.3, hr 61, RR 18, B/P 135/60, spo2 94% ra BUN 60/61 Creatinine 1.53/1.53 Echocardiogram Results: EF 50-55%, concentric LVH, moderate pulmonary HTN Treatment: Lasix 20 mg Po BID In your professional opinion, can you please clarify the acuity and type of CHF if known? Diastolic Heart Failure: Acute Chronic Acute on Chronic Systolic & Diastolic Heart Failure: Acute Chronic Acute on Chronic Heart Failure Unable to Determine Other, please specify unable to determine MTDD
[2019-02-13 14:38] LABS: Hemoglobin A1C 7.5 % (4.0-6.0)
[2019-02-13 16:42] LABS: Glucose,Whole Blood 202 mg/dL (75-99)
[2019-02-13 20:42] LABS: Glucose,Whole Blood 197 mg/dL (75-99)
[2019-02-13] MEDS: ATORVASTATIN 20 MG TAB PO SCH (21:10)
[2019-02-13] MEDS: GABAPENTIN 300 MG CAP PO SCH (21:10)
[2019-02-13] MEDS: ZINC OXIDE 20% OINT 28.4 GM TUBE TOPICAL SCH (21:10)
[2019-02-13] MEDS: INSULIN DETEMIR (LEVEMIR) 100 UNIT/ML SYR SQ SCH (21:11)
[2019-02-13] MEDS: DAPTOmycin 500 MG in SODIUM CHLORIDE 0.9% 50 ML IVPB SCH (21:11)
[2019-02-13] MEDS: SODIUM CHLORIDE 0.9% 1,000 ML IV SCH (21:55)
--- NOTE | 2019-02-13 23:47 | P.CON ---
Consult Note - . Consult date: 02/13/19 Assessment/Plan:: This is a 58-year-old female well known to ID service as she has chronic bilateral lower extremity ulcerations and [facility]. Her last point it was last Wednesday. She states she was doing fine following that but knows she needs to keep her legs elevated. On Wednesday she found that her legs were sopping wet. On Wednesday she was too weak to get out of bed and she slept until 3p.m. She called her caregiver and she was still too weak to get up. She had increasing pain to the right heel and also chills. She came into [facility] emergency center for evaluation. She was found to be afebrile, white count 6.5, lactic acid 1.0. Creatinine was 1.53 which appears to be chronic. Blood culture was obtained. Patient was placed on Rocephin and admitted to the [facility] floor. Patient continues to have significant amount of serous and in some areas serosanguineous drainage from her lower extremities. Previous wound culture from November of this year is positive for MRSA, Proteus mirabilis, Acinetobacter and previous to this and August wound culture was Pseudomonas aeruginosa and Providencia rettgeri please see the consult is dictated by nurse practitioner Mrs. Dora Armenta 58-year-old woman multiple hospitalizations followed at the wound healing Center currently. Presents with sudden illness with generalized weakness, worsening ulcerations to her legs with sudden onset of redness and follow drainage. Recent cultures are reviewed and patient will be treated with Rocephin and daptomycin pending further culture results. Local wound care with the zinc dressings will be applied and wrapped into place. Elevate the legs as she tolerates. Case management is following determine the most appropriate discharge location. I agree with evaluation, assessment and plan as dictated by nurse practitioner Mrs. Dora Armenta.
--- NOTE | 2019-02-14 04:18 | PN ---
PROGRESS NOTE DATE OF SERVICE: February 13, 2019. PRESENTING COMPLAINT: Cellulitis lower extremity. INTERVAL HISTORY: This patient who follows with the [facility] presented acute cellulitis with bilateral lower extremity has got chronic wounds. Seen by Dr. Acuña. Pain is controlled. No fever. No chills. REVIEW OF SYSTEMS: Done for constitutional, cardiovascular, GI, pulmonary; relevant findings as above. CURRENT MEDICATIONS: Reviewed that include IV ceftriaxone, zinc oxide topical ointment. PHYSICAL EXAMINATION: VITAL SIGNS: Temperature 97.5, pulse 58. Respiratory rate 16, blood pressure 125/69, pulse ox 94 percent on room air. GENERAL APPEARANCE: Sitting up, comfortable. EYES: Pupils are equal. Conjunctivae normal. NECK: JVD not raised. Mass not palpable. RESPIRATORY: Effort normal. LUNGS decreased and distant breath sounds. CARDIOVASCULAR: Heart sounds muffled some edema. ABDOMEN: Distended soft. Liver and spleen not palpable. Bilateral lower extremity bilateral dressing of the lower extremities. INVESTIGATIONS: Accu-Cheks are noted. ASSESSMENT: 1. Acute bilateral lower extremity cellulitis in a patient who has got a left leg diabetic wound and the right leg had a traumatic wound. The patient's wounds are chronic, being followed by the [facility] Care Center. 2. Chronic kidney disease stage 3 from diabetic nephropathy and nephrosclerosis. 3. Morbid obesity BMI 59.7. 4. Diabetes mellitus type 2, chronically on insulin. 5. Gastroesophageal reflux disease. 6. Essential hypertension. 7. Hyperlipidemia. 8. Coronary artery prior history of bypass. 9. Diabetic peripheral neuropathy. 10.Chronic low back pain from arthritis. 11.Chronic medical debility, patient uses a walker and a wheelchair. PLAN: Continue current medication and treatment plan. Await further input from Dr. Acuña. Other medications to continue. MMODL / IJN: [id number] /
[2019-02-14 07:28] LABS: Glucose,Whole Blood 100 mg/dL (75-99)
[2019-02-14] MEDS: INSULIN ASPART (NovoLOG) 100 UNIT/ML VIAL SQ SCH ×4 (07:29→20:42)
[2019-02-14] MEDS: ALBUTEROL NEBULIZED 2.5 MG/3 ML INHALATION PRN (08:20)
[2019-02-14] MEDS: CARVEDILOL 12.5 MG TAB PO SCH ×2 (08:34→17:27)
[2019-02-14 08:37] LABS: Anisocytosis Slight; Basophils % (A) 0 %; Eosinophils # (A) 0.3 k/uL (0-0.7); Eosinophils % (A) 5 %; HCT 28.4 % (34.0-46.0); HGB 8.5 gm/dL (11.4-16.0); Hypochromasia Marked; Lymphocytes # (A) 0.7 k/uL (1.0-4.8); Lymphocytes % (A) 12 %; MCHC 29.8 g/dL (31.0-37.0); MCV 87.2 fL (80.0-100.0); Mean Platelet Volume 7.3; Monocytes # (A) 0.3 k/uL (0-1.0); Monocytes % (A) 6 %; Neutrophils # (A) 3.9 k/uL (1.3-7.7); Neutrophils % (A) 74 %; Platelet Count 198 k/uL (150-450); RBC 3.25 m/uL (3.80-5.40); RDW 18.5 % (11.5-15.5); WBC 5.3 k/uL (3.8-10.6)
[2019-02-14 08:45] LABS: Calcium 8.5 mg/dL (8.4-10.2)
[2019-02-14] MEDS: PANTOPRAZOLE 40 MG TABLET PO SCH (09:06)
[2019-02-14] MEDS: FUROSEMIDE 20 MG TAB PO SCH ×2 (09:06→20:42)
[2019-02-14] MEDS: ZINC OXIDE 20% OINT 28.4 GM TUBE TOPICAL SCH ×2 (09:06→20:42)
[2019-02-14] MEDS: ENOXAPARIN 40 MG/0.4 ML SYRINGE SQ SCH (09:06)
[2019-02-14] MEDS: ASPIRIN 81 MG PO SCH (09:06)
[2019-02-14] MEDS: CLOPIDOGREL 75 MG TAB PO SCH (09:06)
[2019-02-14 12:30] LABS: Glucose,Whole Blood 180 mg/dL (75-99)
--- NOTE | 2019-02-14 13:15 | PN ---
PROGRESS NOTE DATE OF SERVICE: 02/14/2019 PRESENTING COMPLAINT: Cellulitis lower extremity. INTERVAL HISTORY: This patient follows with the wound care center presented with severe cellulitis of both lower extremities with chronic wounds, being followed by Dr. Acuña. Topically . Getting also IV antibiotics. Tolerating a diet. Breathing is stable. REVIEW OF SYSTEMS: Done for constitutional, cardiovascular, GI, pulmonary; relevant findings as above. CURRENT MEDICATIONS: Current medications are reviewed that include IV ceftriaxone, zinc oxide. PHYSICAL EXAMINATION: On examination, temperature 97.9, pulse 56, respiration 18, blood pressure 105/66, pulse ox 97% on room air. GENERAL APPEARANCE: Sitting up, awake. EYES: Pupils equal. Conjunctivae normal. NECK: JVD not raised. Mass not palpable. RESPIRATORY: Effort normal. LUNGS: Distant breath sounds. CARDIOVASCULAR: Heart sounds muffled. Some edema. ABDOMEN: Distended, soft. Liver and spleen not palpable. PSYCHIATRY: Alert and oriented x3. Mood and affect normal. EXTREMITIES: Both lower extremities in a dressing. INVESTIGATIONS: White count 5.3, hemoglobin 8.5, potassium 5.0, BUN 60, creatinine 1.79. ASSESSMENT: 1. Acute severe bilateral lower extremity cellulitis in a patient who has got a left leg diabetic wound and right leg traumatic wound, which is chronically being followed at the wound care center. 2. Chronic kidney disease stage 3 from diabetic nephropathy and nephrosclerosis. 3. Morbid obesity, body mass index 59.7. 4. Diabetes mellitus type 2, chronically on insulin. 5. Gastroesophageal reflux disease. 6. Essential hypertension. 7. Hyperlipidemia. 8. Coronary artery disease, prior history of bypass. 9. Diabetic peripheral neuropathy. 10.Chronic low back pain from arthritis. 11.Chronic medical debility uses a walker and a wheelchair. PLAN: Continue current medication and treatment plan. Antibiotics per Dr. Acuña. Care was discussed with the patient. Will follow. The patient's antibiotics also include daptomycin. MMODL / IJN: [id number] /
[2019-02-14 16:46] LABS: Glucose,Whole Blood 152 mg/dL (75-99)
[2019-02-14 20:37] LABS: Glucose,Whole Blood 151 mg/dL (75-99)
[2019-02-14] MEDS: GABAPENTIN 300 MG CAP PO SCH (20:42)
[2019-02-14] MEDS: ATORVASTATIN 20 MG TAB PO SCH (20:42)
[2019-02-14] MEDS: INSULIN DETEMIR (LEVEMIR) 100 UNIT/ML SYR SQ SCH (20:42)
[2019-02-14] MEDS: DAPTOmycin 500 MG in SODIUM CHLORIDE 0.9% 50 ML IVPB SCH (20:42)
[2019-02-14] MEDS: SODIUM CHLORIDE 0.9% 1,000 ML IV SCH (22:04)
--- NOTE | 2019-02-14 23:19 | P.PN ---
Subjective Progress Note Date: 02/14/19 This is a 58-year-old female well known to ID service as she has chronic bilateral lower extremity ulcerations and [facility] Her last point it was last Wednesday. She states she was doing fine following that but knows she needs to keep her legs elevated. On Wednesday she found that her legs were sopping wet. On Wednesday she was too weak to get out of bed and she slept until 3p.m. She called her caregiver and she was still too weak to get up. She had increasing pain to the right heel and also chills. She came into [facility] emergency center for evaluation. She was found to be afebrile, white count 6.5, lactic acid 1.0. Creatinine was 1.53 w hich appears to be chronic. Blood culture was obtained. Patient was placed on Rocephin and [facility] Patient continues to have significant amount of serous and in some areas serosanguineous drainage from her lower extremities. Previous wound culture from November of this year is positive for MRSA, Proteus mirabilis, Acinetobacter and previous to this and August wound culture was Pseudomonas aeruginosa and Providencia rettgeri 02/14/2019 continues has some drainage from her legs does not feel any worse than she did a day ago. No fevers or chills struggling with edema. Objective - Vital Signs Vital signs: Vital Signs Temp 97.5 F L 02/14/19 20:09 Pulse 57 L 02/14/19 20:09 Resp 16 02/14/19 20:09 BP 154/80 02/14/19 20:09 Pulse Ox 95 02/14/19 20:09 Intake & Output 02/14/19 02/14/19 02/15/19 06:59 18:59 06:59 Intake Total 1370 70 Balance 1370 70 Intake: Intake, IV Titration 250 70 Amount Sodium Chloride 0.9% 1, 200 70 000 ml @ 20 mls/hr IV . Q24H [facility] Rx#:[id number] cefTRIAXone 1 gm In 50 Sodium Chloride 0.9% 50 ml @ 100 mls/hr IVPB Q24HR [facility] Rx#:[id number] Oral 1120 Other: Voiding Method Bedside Commode Bedside Commode Bedside Commode # Voids 1 1 # Bowel Movements 1 - Exam Gen: This is a morbidly obese 58-year-old female. Patient is resting in bed with head of the bed of appears to be comfortable and in no acute d istress. HEENT: Head is atraumatic, normocephalic. Pupils equal, round. Sclerae is anicteric. Conjunctiva pink. Mucous members of the mouth are moist. Patient is edentulous. No thrush noted. NECK: Supple. No JVD. No lymphadenopathy. No thyromegaly. LUNGS: Diminished. No wheezes or rhonchi. No intercostal retractions. HEART: Regular rate and rhythm. No murmur. ABDOMEN: Morbidly obese. Soft. Bowel sounds are present. No masses. No tenderness. Mild erythema under abdominal folds and moisture noted under bilateral breasts. EXTREMITIES: 2+ bilateral pedal edema. The lower extremities have bilateral edema. Bilateral erythema. There is some ulceration likely from her prior dressing that is horizontal in linear on the right anterior calf. Both legs have the copious amount of serous and in some areas serosanguineous drainage. NEUROLOGICAL: Patient is awake, alert and oriented x3. - Labs CBC & Chem 7: 02/14/19 08:07 02/14/19 08:07 Labs: Abnormal Lab Results - Last 24 Hours (Table) 02/14/19 02/14/19 02/14/19 Range/Units 07:15 08:07 08:07 RBC 3.25 L (3.80-5.40) m/uL Hgb 8.5 L (11.4-16.0) gm/dL Hct 28.4 L (34.0-46.0) % MCHC 29.8 L (31.0-37.0) g/dL RDW 18.5 H (11.5-15.5) % Lymphocytes # 0.7 L (1.0-4.8) k/uL Chloride 109 H (98-107) mmol/L BUN 60 H (7-17) mg/dL Creatinine 1.79 H (0.52-1.04) mg/dL Glucose 120 H (74-99) mg/dL POC Glucose (mg/dL) 100 H (75-99) mg/dL 02/14/19 02/14/19 02/14/19 Range/Units 12:08 16:34 20:25 RBC (3.80-5.40) m/uL Hgb (11.4-16.0) gm/dL Hct (34.0-46.0) % MCHC (31.0-37.0) g/dL RDW (11.5-15.5) % Lymphocytes # (1.0-4.8) k/uL Chloride (98-107) mmol/L BUN (7-17) mg/dL Creatinine (0.52-1.04) mg/dL Glucose (74-99) mg/dL POC Glucose (mg/dL) 180 H 152 H 151 H (75-99) mg/dL Microbiology - Last 24 Hours (Table) 02/11/19 17:30 Blood Culture - Preliminary Blood No Growth after 72 hours 02/13/19 16:17 Gram Stain - Preliminary Leg - Right Wound Culture - Preliminary Laboratory Results WBC 5.3 k/uL (3.8-10.6) 02/14/19 08:07 RBC 3.25 m/uL (3.80-5.40) L 02/14/19 08:07 Hgb 8.5 gm/dL (11.4-16.0) L 02/14/19 08:07 Hct 28.4 % (34.0-46.0) L 02/14/19 08:07 MCV 87.2 fL (80.0-100.0) 02/14/19 08:07 MCH 26.0 pg (25.0-35.0) 02/14/19 08:07 MCHC 29.8 g/dL (31.0-37.0) L 02/14/19 08:07 RDW 18.5 % (11.5-15.5) H 02/14/19 08:07 Plt Count 198 k/uL (150-450) 02/14/19 08:07 Neutrophils % 74 % 02/14/19 08:07 Lymphocytes % 12 % 02/14/19 08:07 Monocytes % 6 % 02/14/19 08:07 Eosinophils % 5 % 02/14/19 08:07 Basophils % 0 % 02/14/19 08:07 Neutrophils # 3.9 k/uL (1.3-7.7) 02/14/19 08:07 Lymphocytes # 0.7 k/uL (1.0-4.8) L 02/14/19 08:07 Monocytes # 0.3 k/uL (0-1.0) 02/14/19 08:07 Eosinophils # 0.3 k/uL (0-0.7) 02/14/19 08:07 Basophils # 0.0 k/uL (0-0.2) 02/14/19 08:07 Hypochromasia Marked 02/14/19 08:07 Anisocytosis Slight 02/14/19 08:07 Sodium 142 mmol/L (137-145) 02/14/19 08:07 Potassium 5.0 mmol/L (3.5-5.1) 02/14/19 08:07 Chloride 109 mmol/L (98-107) H 02/14/19 08:07 Carbon Dioxide 24 mmol/L (22-30) 02/14/19 08:07 Anion Gap 9 mmol/L 02/14/19 08:07 BUN 60 mg/dL (7-17) H 02/14/19 08:07 Creatinine 1.79 mg/dL (0.52-1.04) H 02/14/19 08:07 Est GFR (CKD-EPI)AfAm 35 (>60 ml/min/1.73 sqM) 02/14/19 08:07 Est GFR (CKD-EPI)NonAf 31 (>60 ml/min/1.73 sqM) 02/14/19 08:07 Glucose 120 mg/dL (74-99) H 02/14/19 08:07 POC Glucose (mg/dL) 151 mg/dL (75-99) H 02/14/19 20:25 POC Glu [employer] AMELIE Riya Ross 02/14/19 20:[address] Glu mg/dL 169 02/12/19 07:11 Hemoglobin A1c 7.5 % (4.0-6.0) H 02/12/19 07:11 Plasma Lactic Acid Sylvester 1.0 mmol/L (0.7-2.0) 02/11/19 17:30 Calcium 8.5 mg/dL (8.4-10.2) 02/14/19 08:07 Total Bilirubin 1.3 mg/dL (0.2-1.3) 02/12/19 07:11 AST 14 U/L (14-36) 02/12/19 07:11 ALT 24 U/L (9-52) 02/12/19 07:11 Alkaline Phosphatase 138 U/L (38-126) H 02/12/19 07:11 Total Protein 6.3 g/dL (6.3-8.2) 02/12/19 07:11 Albumin 3.4 g/dL (3.5-5.0) L 02/12/19 07:11 Microbiology 02/11/19 17:30 Blood Blood Culture - Preliminary No Growth after 72 hours 02/13/19 16:17 Leg - Right Gram Stain - Preliminary 02/13/19 16:17 Leg - Right Wound Culture - Preliminary Assessment and Plan (1) Cellulitis of both lower extremities Current Visit: Yes Status: Acute Code(s): L03.115 - CELLULITIS OF RIGHT LOWER LIMB; L03.116 - CELLULITIS OF LEFT LOWER LIMB SNOMED Code(s): 235773369 (2) Chronic systolic congestive heart failure Current Visit: No Status: Acute Code(s): I50.22 - CHRONIC SYSTOLIC (CONGESTIVE) HEART FAILURE SNOMED Code(s): 973691705 (3) Venous stasis ulcers of both lower extremities Narrative/Plan: 58-year-old woman multiple hospitalizations followed at the [facility] healing Center currently. Presents with sudden illness with generalized weakness, worsening ulcerations to her legs with sudden onset of redness and follow drainage. Recent cultures are reviewed and patient will be treated with Rocephin and daptomycin pending further culture results. Local wound care with the zinc dressings will be applied and wrapped into place. Elevate the legs as she tolerates. Case management is following determine the most appropriate discharge location. 02/14/2019 the patient is a bit more comfortable. Denies fevers or chills. Zinc dressing seems to be helping The legs are elevated the bed by physically raising the head of the bed. She does find a comfortable. Hopefully with the local wound care compression and elevation the be some improvement. Cultures will help further direct antibiotic therapy while current empiric treatment is being utilized. Current Visit: No Status: Acute Code(s): I83.019 - VARICOSE VEINS OF RIGHT LOWER EXTREMITY W ULCER OF UNSP SITE; I83.029 - VARICOSE VEINS OF LEFT LOWER EXTREMITY W ULCER OF UNSP SITE; L97.919 - NON-PRS CHRONIC ULC UNSP PRT OF R LOW LEG W UNSP SEVERITY; L97.929 - NON-PRS CHRONIC ULC UNSP PRT OF L LOW LEG W UNSP SEVERITY SNOMED Code(s): 881999252
[2019-02-15 07:06] LABS: Glucose,Whole Blood 122 mg/dL (75-99)
[2019-02-15] MEDS: INSULIN ASPART (NovoLOG) 100 UNIT/ML VIAL SQ SCH ×4 (09:30→21:35)
[2019-02-15] MEDS: CARVEDILOL 12.5 MG TAB PO SCH ×2 (09:38→17:08)
[2019-02-15] MEDS: CLOPIDOGREL 75 MG TAB PO SCH (09:38)
[2019-02-15] MEDS: ASPIRIN 81 MG PO SCH (09:38)
[2019-02-15] MEDS: ENOXAPARIN 40 MG/0.4 ML SYRINGE SQ SCH (09:38)
[2019-02-15] MEDS: FUROSEMIDE 20 MG TAB PO SCH ×2 (09:38→21:05)
[2019-02-15] MEDS: PANTOPRAZOLE 40 MG TABLET PO SCH (09:38)
[2019-02-15 09:46] LABS: Calcium 8.4 mg/dL (8.4-10.2); Potassium 4.6 mmol/L (3.5-5.1)
[2019-02-15] MEDS: ALBUTEROL NEBULIZED 2.5 MG/3 ML INHALATION PRN (11:23)
[2019-02-15 12:05] LABS: Glucose,Whole Blood 222 mg/dL (75-99)
[2019-02-15] MEDS: ZINC OXIDE 20% OINT 28.4 GM TUBE TOPICAL SCH (13:08)
[2019-02-15 17:06] LABS: Glucose,Whole Blood 127 mg/dL (75-99)
[2019-02-15] MEDS: ATORVASTATIN 20 MG TAB PO SCH (21:05)
[2019-02-15] MEDS: GABAPENTIN 300 MG CAP PO SCH (21:05)
[2019-02-15 21:30] LABS: Glucose,Whole Blood 159 mg/dL (75-99)
[2019-02-15] MEDS: SODIUM CHLORIDE 0.9% 1,000 ML IV SCH (21:36)
[2019-02-15] MEDS: INSULIN DETEMIR (LEVEMIR) 100 UNIT/ML SYR SQ SCH (21:36)
--- NOTE | 2019-02-15 23:58 | P.PN ---
Subjective Progress Note Date: 02/15/19 This is a 58-year-old female well known to ID service as she has chronic bilateral lower extremity ulcerations and [facility]. Her last point it was last Wednesday. She states she was doing fine following that but knows she needs to keep her legs elevated. On Wednesday she found that her legs were sopping wet. On Wednesday she was too weak to get out of bed and she slept until 3p.m. She called her caregiver and she was still too weak to get up. She had increasing pain to the right heel and also chills. She came into [facility] emergency center for evaluation. She was found to be afebrile, white count 6.5, lactic acid 1.0. Creatinine was 1.53 w hich appears to be chronic. Blood culture was obtained. Patient was placed on Rocephin and admitted to the [facility] floor. Patient continues to have significant amount of serous and in some areas serosanguineous drainage from her lower extremities. Previous wound culture from November of this year is positive for MRSA, Proteus mirabilis, Acinetobacter and previous to this and August wound culture was Pseudomonas aeruginosa and Providencia rettgeri 02/14/2019 continues has some drainage from her legs does not feel any worse than she did a day ago. No fevers or chills struggling with edema. 02/15/2019 drainage is improved but continues to saturate dressings and has a bit of a foul odor. Legs are still uncomfortable. Objective - Vital Signs Vital signs: Vital Signs Temp 97.4 F L 02/15/19 19:35 Pulse 57 L 02/15/19 19:35 Resp 18 02/15/19 19:35 BP 132/72 02/15/19 19:35 Pulse Ox 92 L 02/15/19 19:35 Intake & Output 02/15/19 02/15/19 02/16/19 06:59 18:59 06:59 Intake Total 120 720 250 Balance 120 720 250 Weight 157.805 kg Intake: Intake, IV Titration 120 320 Amount DAPTOmycin 500 mg In 50 100 Sodium Chloride 0.9% 50 ml @ 100 mls/hr IVPB Q24H [facility] Rx#:[id number] Sodium Chloride 0.9% 1, 70 120 000 ml @ 20 mls/hr IV . Q24H [facility] Rx#:[id number] cefTRIAXone 1 gm In 100 Sodium Chloride 0.9% 50 ml @ 100 mls/hr IVPB Q24HR [facility] Rx#:[id number] Oral 400 250 Other: Voiding Method Bedside Commode Bedside Commode # Voids 1 2 1 - Exam Gen: This is a morbidly obese 58-year-old female. Patient is resting in bed with head of the bed of appears to be comfortable and in no acute distress. HEENT: Head is atraumatic, normocephalic. Pupils equal, round. Sclerae is anicteric. Conjunctiva pink. Mucous members of the mouth are moist. Patient is edentulous. No thrush noted. NECK: Supple. No JVD. No lymphadenopathy. No thyromegaly. LUNGS: Diminished. No wheezes or rhonchi. No intercostal retractions. HEART: Regular rate and rhythm. No murmur. ABDOMEN: Morbidly obese. Soft. Bowel sounds are present. No masses. No tenderness. Mild erythema under abdominal folds and moisture noted under bilateral breasts. EXTREMITIES: 2+ bilateral pedal edema. The lower extremities have bilateral edema. Bilateral erythema. There is some ulceration likely from her prior dressing that is horizontal in linear on the right anterior calf. Both legs have the copious amount of serous and in some areas serosanguineous drainage. NEUROLOGICAL: Patient is awake, alert and oriented x3. - Labs CBC & Chem 7: 02/14/19 08:07 02/15/19 08:56 Labs: Abnormal Lab Results - Last 24 Hours (Table) 02/15/19 02/15/19 02/15/19 Range/Units 06:53 08:56 11:52 Chloride 110 H (98-107) mmol/L BUN 54 H (7-17) mg/dL Creatinine 1.65 H (0.52-1.04) mg/dL Glucose 149 H (74-99) mg/dL POC Glucose (mg/dL) 122 H 222 H (75-99) mg/dL 02/15/19 02/15/19 Range/Units 16:47 21:18 Chloride (98-107) mmol/L BUN (7-17) mg/dL Creatinine (0.52-1.04) mg/dL Glucose (74-99) mg/dL POC Glucose (mg/dL) 127 H 159 H (75-99) mg/dL Microbiology - Last 24 Hours (Table) 02/11/19 17:30 Blood Culture - Preliminary Blood No Growth after 96 hours 02/13/19 16:17 Gram Stain - Preliminary Leg - Right Wound Culture - Preliminary Presumptive MRSA Laboratory Results WBC 5.3 k/uL (3.8-10.6) 02/14/19 08:07 RBC 3.25 m/uL (3.80-5.40) L 02/14/19 08:07 Hgb 8.5 gm/dL (11.4-16.0) L 02/14/19 08:07 Hct 28.4 % (34.0-46.0) L 02/14/19 08:07 MCV 87.2 fL (80.0-100.0) 02/14/19 08:07 MCH 26.0 pg (25.0-35.0) 02/14/19 08:07 MCHC 29.8 g/dL (31.0-37.0) L 02/14/19 08:07 RDW 18.5 % (11.5-15.5) H 02/14/19 08:07 Plt Count 198 k/uL (150-450) 02/14/19 08:07 Neutrophils % 74 % 02/14/19 08:07 Lymphocytes % 12 % 02/14/19 08:07 Monocytes % 6 % 02/14/19 08:07 Eosinophils % 5 % 02/14/19 08:07 Basophils % 0 % 02/14/19 08:07 Neutrophils # 3.9 k/uL (1.3-7.7) 02/14/19 08:07 Lymphocytes # 0.7 k/uL (1.0-4.8) L 02/14/19 08:07 Monocytes # 0.3 k/uL (0-1.0) 02/14/19 08:07 Eosinophils # 0.3 k/uL (0-0.7) 02/14/19 08:07 Basophils # 0.0 k/uL (0-0.2) 02/14/19 08:07 Hypochromasia Marked 02/14/19 08:07 Anisocytosis Slight 02/14/19 08:07 Sodium 143 mmol/L (137-145) 02/15/19 08:56 Potassium 4.6 mmol/L (3.5-5.1) 02/15/19 08:56 Chloride 110 mmol/L (98-107) H 02/15/19 08:56 Carbon Dioxide 24 mmol/L (22-30) 02/15/19 08:56 Anion Gap 9 mmol/L 02/15/19 08:56 BUN 54 mg/dL (7-17) H 02/15/19 08:56 Creatinine 1.65 mg/dL (0.52-1.04) H 02/15/19 08:56 Est GFR (CKD-EPI)AfAm 39 (>60 ml/min/1.73 sqM) 02/15/19 08:56 Est GFR (CKD-EPI)NonAf 34 (>60 ml/min/1.73 sqM) 02/15/19 08:56 Glucose 149 mg/dL (74-99) H 02/15/19 08:56 POC Glucose (mg/dL) 159 mg/dL (75-99) H 02/15/19 21:18 POC Glu [employer] ID J Carlos Padilla 02/15/19 21:[address] Glu mg/dL 169 02/12/19 07:11 Hemoglobin A1c 7.5 % (4.0-6.0) H 02/12/19 07:11 Plasma Lactic Acid Sylvester 1.0 mmol/L (0.7-2.0) 02/11/19 17:30 Calcium 8.4 mg/dL (8.4-10.2) 02/15/19 08:56 Total Bilirubin 1.3 mg/dL (0.2-1.3) 02/12/19 07:11 AST 14 U/L (14-36) 02/12/19 07:11 ALT 24 U/L (9-52) 02/12/19 07:11 Alkaline Phosphatase 138 U/L (38-126) H 02/12/19 07:11 Total Protein 6.3 g/dL (6.3-8.2) 02/12/19 07:11 Albumin 3.4 g/dL (3.5-5.0) L 02/12/19 07:11 Microbiology 02/11/19 17:30 Blood Blood Culture - Preliminary No Growth after 96 hours 02/13/19 16:17 Leg - Right Gram Stain - Preliminary 02/13/19 16:17 Leg - Right Wound Culture - Preliminary Presumptive MRSA Assessment and Plan (1) Cellulitis of both lower extremities Current Visit: Yes Status: Acute Code(s): L03.115 - CELLULITIS OF RIGHT LOWER LIMB; L03.116 - CELLULITIS OF LEFT LOWER LIMB SNOMED Code(s): 181313248 (2) Chronic systolic congestive heart failure Current Visit: No Status: Acute Code(s): I50.22 - CHRONIC SYSTOLIC (CONGESTIVE) HEART FAILURE SNOMED Code(s): 361703753 (3) Venous stasis ulcers of both lower extremities Narrative/Plan: 58-year-old woman multiple hospitalizations followed at the wound healing Center currently. Presents with sudden illness with generalized weakness, worsening ulcerations to her legs with sudden onset of redness and follow drainage. Recent cultures are reviewed and patient will be treated with Rocephin and daptomycin pending further culture results. Local wound care with the zinc dressings will be applied and wrapped into place. Elevate the legs as she tolerates. Case management is following determine the most appropriate discharge location. 02/14/2019 the patient is a bit more comfortable. Denies fevers or chills. Zinc dressing seems to be helping The legs are elevated the bed by physically raising the head of the bed. She does find a comfortable. Hopefully with the local wound care compression and elevation the be some improvement. Cultures will help further direct antibiotic therapy while current empiric treatment is being utilized. 02/15/2019 patient is somewhat more comfortable with the current dressing changes and the zinc is being applied. Motor is improved. Continue with local wound care. Continue to elevate with compression. Elevate the bed as she tolerates. Antibiotic therapy is with Rocephin and daptomycin for now. Likely MRSA gram negatives are being worked up. Plans for antibiotic therapy at discharge are being finalized Current Visit: No Status: Acute Code(s): I83.019 - VARICOSE VEINS OF RIGHT LOWER EXTREMITY W ULCER OF UNSP SITE; I83.029 - VARICOSE VEINS OF LEFT LOWER EXTREMITY W ULCER OF UNSP SITE; L97.919 - NON-PRS CHRONIC ULC UNSP PRT OF R LOW LEG W UNSP SEVERITY; L97.929 - NON-PRS CHRONIC ULC UNSP PRT OF L LOW LEG W UNSP SEVERITY SNOMED Code(s): 810291080
--- NOTE | 2019-02-15 23:58 | PN ---
PROGRESS NOTE DATE OF SERVICE: 02/15/2019 PRESENTING COMPLAINT: Cellulitis, lower extremity. INTERVAL HISTORY: This patient who follows with [facility] presented with severe cellulitis of both lower extremities with chronic wounds, slow to respond, getting IV antibiotics. Otherwise, patient is tolerating a diet, had a bowel movement. REVIEW OF SYSTEMS: Done for constitutional, cardiovascular, GI, pulmonary, dermatological; relevant findings as above. CURRENT MEDICATIONS: Reviewed. They include: 1. IV ceftriaxone. 2. IV daptomycin. 3. Zinc oxide. PHYSICAL EXAMINATION: Temperature 97.7, pulse 57, respiration 16, blood pressure 148/70, pulse ox 97% on room air. GENERAL APPEARANCE: Sitting up. Comfortable. EYES: Pupils equal. Conjunctivae normal. NECK: JVD not raised. Mass not palpable. RESPIRATORY: Effort normal. LUNGS: Decreased distant breath sounds. CARDIOVASCULAR: First and second sounds muffled. Some edema. ABDOMEN: Distended, soft. Liver and spleen not palpable. PSYCHIATRY: Alert and oriented x3. Mood and affect normal. LOWER EXTREMITIES: Dressing in place. Per the patient, before the dressing it is still rather infected-appearing. INVESTIGATIONS: Potassium 4.6, BUN 54, creatinine 1.65. ASSESSMENT: 1. Acute severe bilateral lower extremity cellulitis in a patient who has left leg diabetic wound and right leg traumatic wound. Also being followed at the wound care center, slow to respond. 2. Chronic kidney disease, stage III, from diabetic nephropathy and nephrosclerosis. 3. Morbid obesity with body mass index of 59.7. 4. Diabetes mellitus, type 2, chronically on insulin. 5. Gastroesophageal reflux disease. 6. Essential hypertension. 7. Hyperlipidemia. 8. Coronary artery disease with prior history of bypass. 9. Diabetic peripheral neuropathy. 10.Chronic low back pain from arthritis. 11.Chronic medical debility. Uses a walker and a wheelchair. PLAN: Continue current medication and treatment plan. Discussed with Dr. Acuña. Antibiotics are to continue. Care was discussed with the patient. MMODL / IJN: [id number] /
[2019-02-16] MEDS: ZINC OXIDE 20% OINT 28.4 GM TUBE TOPICAL SCH ×2 (01:00→09:58)
[2019-02-16] MEDS: DAPTOmycin 500 MG in SODIUM CHLORIDE 0.9% 50 ML IVPB SCH ×2 (01:00→21:39)
[2019-02-16 07:28] LABS: Glucose,Whole Blood 146 mg/dL (75-99)
[2019-02-16 08:47] LABS: Potassium 4.1 mmol/L (3.5-5.1)
[2019-02-16] MEDS: ASPIRIN 81 MG PO SCH (09:57)
[2019-02-16] MEDS: PANTOPRAZOLE 40 MG TABLET PO SCH (09:57)
[2019-02-16] MEDS: CLOPIDOGREL 75 MG TAB PO SCH (09:57)
[2019-02-16] MEDS: CARVEDILOL 12.5 MG TAB PO SCH ×2 (09:57→17:54)
[2019-02-16] MEDS: ENOXAPARIN 40 MG/0.4 ML SYRINGE SQ SCH (09:58)
[2019-02-16] MEDS: FUROSEMIDE 20 MG TAB PO SCH ×2 (09:58→21:39)
[2019-02-16] MEDS: INSULIN ASPART (NovoLOG) 100 UNIT/ML VIAL SQ SCH ×4 (10:04→21:39)
[2019-02-16 12:20] LABS: Glucose,Whole Blood 141 mg/dL (75-99)
--- NOTE | 2019-02-16 14:45 | PN ---
PROGRESS NOTE DATE OF SERVICE: 02/16/2019 PRESENTING COMPLAINT: Lower extremity cellulitis. INTERVAL HISTORY: This patient who follows the [facility] with wounds on both lower extremity and follows up there, presented with bilateral lower extremity cellulitis. Remains on IV antibiotics, has been slow to respond. Otherwise, been tolerating a diet. REVIEW OF SYSTEMS: Done for constitutional, cardiovascular, GI, pulmonary; relevant findings as above. CURRENT MEDICATIONS: Reviewed that include IV ceftriaxone, IV daptomycin. PHYSICAL EXAMINATION: Temperature 98.1, pulse 61, respirations 16, blood pressure 147/69, pulse ox 94% on room air. GENERAL APPEARANCE: Sitting up, awake. EYES: Pupils equal, conjunctivae normal. NECK: JVD not raised. Mass not palpable. RESPIRATORY: Effort normal. LUNGS: Decreased breath sounds. CARDIOVASCULAR: First and second sounds normal. Some edema. ABDOMEN: Distended, soft. Liver and spleen not palpable. PSYCHIATRY: Alert and oriented x3, mood and affect normal. DERMATOLOGICAL: Bilateral lower extremity in a dressing. INVESTIGATIONS: Potassium 4.1, BUN 50, creatinine 1.46. The patient's wound cultures are growing MRSA. ASSESSMENT: 1. Acute severe bilateral lower extremity cellulitis in a patient who has had left leg diabetic for the right leg traumatic wound. Referred to the [facility] with cultures growing methicillin-resistant Staphylococcus aureus. 2. Chronic kidney stage III from diabetic nephropathy and nephrosclerosis. 3. Morbid obesity, body mass index of 59.7. 4. Diabetes mellitus type 2, chronically on insulin. 5. Gastroesophageal reflux disease. 6. Essential hypertension. 7. Hyperlipidemia. 8. Coronary artery with prior history of bypass. 9. Diabetic peripheral neuropathy. 10.Chronic low back pain from arthritis. 11.Chronic medical debility, patient uses a walker and wheelchair. PLAN: Care was discussed with the patient. Continue current antibiotics. Will let Dr. Acuña to determine when patient is okay to be discharge and duration and type of antibiotic. MMODL / IJN: [id number] /
[2019-02-16 16:54] LABS: Glucose,Whole Blood 254 mg/dL (75-99)
[2019-02-16] MEDS: SODIUM CHLORIDE 0.9% 1,000 ML IV SCH (20:26)
[2019-02-16 21:12] LABS: Glucose,Whole Blood 139 mg/dL (75-99)
[2019-02-16] MEDS: GABAPENTIN 300 MG CAP PO SCH (21:39)
[2019-02-16] MEDS: INSULIN DETEMIR (LEVEMIR) 100 UNIT/ML SYR SQ SCH (21:39)
[2019-02-16] MEDS: ATORVASTATIN 20 MG TAB PO SCH (21:39)
[2019-02-17] MEDS: ZINC OXIDE 20% OINT 28.4 GM TUBE TOPICAL SCH ×2 (03:54→08:18)
[2019-02-17 07:35] LABS: Glucose,Whole Blood 110 mg/dL (75-99)
[2019-02-17 07:38] VITALS: RESP 20
[2019-02-17] MEDS: INSULIN ASPART (NovoLOG) 100 UNIT/ML VIAL SQ SCH ×3 (07:39→17:07)
[2019-02-17] MEDS: CARVEDILOL 12.5 MG TAB PO SCH ×2 (07:41→17:07)
[2019-02-17] MEDS: PANTOPRAZOLE 40 MG TABLET PO SCH (08:14)
[2019-02-17] MEDS: ASPIRIN 81 MG PO SCH (08:15)
[2019-02-17] MEDS: CLOPIDOGREL 75 MG TAB PO SCH (08:15)
[2019-02-17] MEDS: FUROSEMIDE 20 MG TAB PO SCH (08:15)
[2019-02-17] MEDS: ENOXAPARIN 40 MG/0.4 ML SYRINGE SQ SCH (08:15)
[2019-02-17 09:33] LABS: Calcium 8.4 mg/dL (8.4-10.2); Potassium 4.1 mmol/L (3.5-5.1)
[2019-02-17 12:00] LABS: Glucose,Whole Blood 177 mg/dL (75-99)
[2019-02-17 14:39] VITALS: BP 136/66; PULSE 20; TEMP 97.7
[2019-02-17 16:02] LABS: Glucose,Whole Blood 142 mg/dL (75-99)
--- NOTE | 2019-02-17 16:29 | DS ---
DISCHARGE SUMMARY DATE OF ADMISSION: 02/11/2019 DATE OF DISCHARGE: 02/17/2019 FINAL DIAGNOSES: 1. Acute severe bilateral lower extremity cellulitis in a patient who has had both the legs with venostasis ulcers with cultures growing methicillin-resistant Staphylococcus aeruginosa. 2. Chronic kidney disease, stage III, from diabetic nephropathy and nephrosclerosis. 3. Morbid obesity with body mass index of 59.7. 4. Diabetes mellitus, type 2, chronically on insulin. 5. Gastroesophageal reflux disease. 6. Essential hypertension. 7. Hyperlipidemia. 8. Coronary artery disease with prior history of bypass. 9. Diabetic peripheral neuropathy. 10.Chronic low back pain from arthritis. 11.Chronic medical debility. Patient uses a walker and a wheelchair. CONSULTATION: Dr. Acuña. HOSPITAL COURSE: This patient with bilateral lower extremity venous ulcers with chronic wound care ongoing at the wound care center, presented with severe bilateral lower extremity cellulitis. Cultures did grow MRSA. Doing better. Antibiotics are coordinated by Dr. Acuña. PHYSICAL EXAMINATION: Temperature 97.7 pulse 58, respiration 20, blood pressure 136/66, pulse ox 94% on room air. LUNGS: Fair air entry. Bilateral lower extremity cellulitis with with venous ulcers. INVESTIGATIONS: BUN 42, creatinine 1.48. Wound culture did grow MRSA. DISCHARGE MEDICATIONS: 1. ProAir 2 puffs q.i.d. p.r.n. 2. Lipitor 20 mg at bedtime. 3. Aspirin 81 mg a day. 4. Coreg 12.5 p.o. b.i.d. 5. Plavix 75 mg a day. NovoLog before meals t.i.d. 6. Levemir 30 units subcutaneously at bedtime. 7. Lasix 20 mg b.i.d. 8. Potassium 20 mEq a day. 9. Protonix 40 mg daily. 10.Daptomycin 500 mg IV daily for 14 days. 11.Neurontin 300 mg at bedtime. 12.Zinc oxide 20% topically b.i.d. 13.Ceftriaxone 2 grams IV piggyback q.24 for 14 days. Follow up with Dr. Santiago after discharge from [facility]. Follow up with Dr. Marin at the [facility]. Labs CBC, BMP in a week. Follow up with Dr. Acuña in 10 days. Wound care to continue as discussed. DISPOSITION: [facility] MMODL / IJN: [id number] /
== END 2019-02-17 17:19 | DRG 638 ==
LOC: EC 17:14 → 4SSUR 19:50
PROVIDERS: ADMIT Hospitalist; ATTEND Hospitalist
PROC: 05HF33Z Insertion of Infusion Device into Left Cephalic Vein, Percutaneous Approach (ICD-10-PCS; principal; 2019-02-17 14:00)
DX: E11.622 Type 2 diabetes mellitus with other skin ulcer (principal); I13.0 Hypertensive heart and chronic kidney disease with heart failure and stage 1 through stage 4 chronic kidney disease, or unspecified chronic kidney disease; I50.22 Chronic systolic (congestive) heart failure; L03.115 Cellulitis of right lower limb; L03.116 Cellulitis of left lower limb; L97.229 Non-pressure chronic ulcer of left calf with unspecified severity; L97.919 Non-pressure chronic ulcer of unspecified part of right lower leg with unspecified severity; Z68.43 Body mass index [BMI] 50.0-59.9, adult; E11.21 Type 2 diabetes mellitus with diabetic nephropathy; E11.22 Type 2 diabetes mellitus with diabetic chronic kidney disease; E11.42 Type 2 diabetes mellitus with diabetic polyneuropathy; E66.01 Morbid (severe) obesity due to excess calories; E78.5 Hyperlipidemia, unspecified; G89.29 Other chronic pain; I25.10 Atherosclerotic heart disease of native coronary artery without angina pectoris; I83.019 Varicose veins of right lower extremity with ulcer of unspecified site; I83.029 Varicose veins of left lower extremity with ulcer of unspecified site; K21.9 Gastro-esophageal reflux disease without esophagitis; M06.9 Rheumatoid arthritis, unspecified; M19.90 Unspecified osteoarthritis, unspecified site; F32.9 Major depressive disorder, single episode, unspecified; N18.3 Chronic kidney disease, stage 3 (moderate); Z82.3 Family history of stroke; Z82.49 Family history of ischemic heart disease and other diseases of the circulatory system; Z83.3 Family history of diabetes mellitus; Z87.891 Personal history of nicotine dependence; Z95.1 Presence of aortocoronary bypass graft; Z91.048 Other nonmedicinal substance allergy status; B95.62 Methicillin resistant Staphylococcus aureus infection as the cause of diseases classified elsewhere; Z79.899 Other long term (current) drug therapy; Z79.4 Long term (current) use of insulin; Z79.02 Long term (current) use of antithrombotics/antiplatelets; I25.2 Old myocardial infarction; Z79.51 Long term (current) use of inhaled steroids; Z79.82 Long term (current) use of aspirin
CPT/HCPCS: 36410; 36415; 76937; 80048; 80053; 83036; 83605; 85025; 87040; 87070; 87077; 87186; 87205; 94640; 96374; 99284

== ENCOUNTER 2019-02-23 16:37 | Emergency (ER) | payer MEDICARE, OTHER ==
--- NOTE | 2019-02-23 19:05 | ED ---
General Adult HPI - General Chief complaint: Extremity Injury, Lower Stated complaint: poss DVT Time Seen by Provider: 02/23/19 17:22 Source: patient, EMS Mode of arrival: EMS Limitations: physical limitation - History of Present Illness Initial comments: Patient is a 58-year-old female presenting with a history of heart failure and diabetes to emergency Department with bilateral lower leg swelling. Patient reports she has diabetic ulcers on bilateral lower legs with daily dressing changes by nurse and the assisted living facility. Patient says that she is being treated for this with IV antibiotics. Patient states that after dressing was performed she developed bilateral lower edema. Patient reports numbness in her left toes but states that his day due to her diabetic neuropathy. Patient states that she has not taken her evening dose of her diuretics. Patient denies chest pain, shortness of breath, chest tightness. Patient denies any headache, lightheadedness or dizziness. - Related Data Home Medications Medication Instructions Recorded Confirmed Albuterol Sulfate [Proair Hfa] 2 puff INHALATION RT-QID PRN 02/18/18 02/23/19 Carvedilol [Coreg] 12.5 mg PO BID 08/17/18 02/23/19 Clopidogrel [Plavix] 75 mg PO DAILY 08/17/18 02/23/19 Insulin Detemir [Levemir Flextouch] 30 units SQ HS 08/17/18 02/23/19 Acetaminophen Tab [Tylenol] 650 mg PO Q6H PRN 02/23/19 02/23/19 DAPTOmycin [Cubicin] 500 mg IV DAILY 02/23/19 02/23/19 INSULIN ASPART (NovoLOG) [NovoLOG See Protocol SQ AC-TID 02/23/19 02/23/19 (formulary)] Insulin Detemir (Levemir) [Levemir] 30 unit SQ HS 02/23/19 02/23/19 Omeprazole 20 mg PO DAILY 02/23/19 02/23/19 Zinc Oxide 20% Oint 1 applic TOPICAL BID PRN 02/23/19 02/23/19 Previous Rx's Medication Instructions Recorded Aspirin 81 mg PO DAILY chew 06/02/18 Furosemide [Lasix] 20 mg PO BID #60 tablet 01/03/19 Potassium Chloride ER [K-Dur 20] 20 meq PO DAILY #30 tab 01/03/19 Gabapentin [Neurontin] 300 mg PO HS #3 capsule 02/17/19 cefTRIAXone [Rocephin] 2,000 mg IVP Q24HR #14 ml 02/17/19 Allergies Allergy/AdvReac Type Severity Reaction Status Date / Time collagenase Clostridium Allergy Unknown Verified 02/23/19 17:08 histolyticu [From Santyl] pollen extracts AdvReac Mild Itching Verified 02/23/19 17:08 Review of Systems ROS Statement: Those systems with pertinent positive or pertinent negative responses have been documented in the HPI. ROS Other: All systems not noted in ROS Statement are negative. Past Medical History Past Medical History: Heart Failure, Diabetes Mellitus, GERD/Reflux, Hyperlipidemia, Hypertension, Myocardial Infarction ([place]), Rheumatoid Arthritis ([place]) Additional Past Medical History / Comment(s): neuropathy,edentulous, cellulitis lt leg,cataracats, past uterine cysts, "gallstones", chronic back pain.. "i've had a rash for this past year on shoulders,bra line and lt leg". Last Myocardial Infarction Date:: 2014 History of Any Multi-Drug Resistant Organisms: ESBL, MRSA Date of last positivie culture/infection: 02/13/19 MRSA MDRO Source:: MRSA LEG 10/13/17 ESBL URINE Past Surgical History: Appendectomy, Section, Coronary Bypass/CABG Additional Past Surgical History / Comment(s): d&c,, x2, 2 vessel cabg,uterine ablation. Double bypass 7 years ago this month Past Anesthesia/Blood Transfusion Reactions: No Reported Reaction Additional Past Anesthesia/Blood Transfusion Reaction / Comment(s): clausterphobia Past Psychological History: Depression Smoking Status: Former smoker Past Alcohol Use History: None Reported Past Drug Use History: None Reported - Past Family History Mother Additional Family Medical History / Comment(s): anuerysm Father Family Medical History: CVA/TIA, Diabetes Mellitus, Myocardial Infarction ([place]) Sister(s) Additional Family Medical History / Comment(s): one sister had "hole in her heart" and a kidney transplant and another sister had ms. General Exam Limitations: physical limitation General appearance: alert, in no apparent distress Head exam: Present: atraumatic, normocephalic, normal inspection Eye exam: Present: normal appearance ENT exam: Present: normal exam, TM's normal bilaterally Respiratory exam: Absent: respiratory distress, wheezes Extremities exam: Present: other (Bilateral lower leg edema. Ulcers on bilateral lower extremity.) Neurological exam: Present: alert, oriented X3 Psychiatric exam: Present: normal affect, normal mood Skin exam: Present: warm, normal color, other (Diabetic Ulcers on bilateral lower legs.) Course Vital Signs 02/23/19 02/23/19 16:42 17:57 Temperature 97.9 F 97.8 F Pulse Rate 59 L 62 Respiratory 19 18 Rate Blood Pressure 126/90 122/71 O2 Sat by Pulse 92 L 98 Oximetry Medical Decision Making - Medical Decision Making Patient is a 58-year-old female presenting to emergency Department with bilate ral lower leg swelling. Patient duplex ultrasound was obtained on bilateral lower extremities and was negative for DVT. Patient was given her nightly dose of 20 mg Lasix. Patient reports that she is ready to go home. Patient will be discharged and advised to follow with primary care. Patient advised to return to the emergency department if symptoms worsen. also examined the patient and has agreed with the treatment plan. - Lab Data Result diagrams: 02/23/19 20:40 02/23/19 20:40 Lab Results 02/23/19 02/23/19 Range/Units 20:40 20:40 WBC 6.4 (3.8-10.6) k/uL RBC 3.53 L (3.80-5.40) m/uL Hgb 8.6 L (11.4-16.0) gm/dL Hct 29.9 L (34.0-46.0) % MCV 84.6 (80.0-100.0) fL MCH 24.4 L (25.0-35.0) pg MCHC 28.8 L (31.0-37.0) g/dL RDW 18.4 H (11.5-15.5) % Plt Count 239 (150-450) k/uL Neutrophils % 74 % Lymphocytes % 11 % Monocytes % 6 % Eosinophils % 7 % Basophils % 1 % Neutrophils # 4.7 (1.3-7.7) k/uL Lymphocytes # 0.7 L (1.0-4.8) k/uL Monocytes # 0.4 (0-1.0) k/uL Eosinophils # 0.4 (0-0.7) k/uL Basophils # 0.0 (0-0.2) k/uL Hypochromasia Marked Anisocytosis Slight Sodium 143 (137-145) mmol/L Potassium 5.0 (3.5-5.1) mmol/L Chloride 110 H (98-107) mmol/L Carbon Dioxide 25 (22-30) mmol/L Anion Gap 8 mmol/L BUN 43 H (7-17) mg/dL Creatinine 1.45 H (0.52-1.04) mg/dL Est GFR (CKD-EPI)AfAm 46 (>60 ml/min/1.73 sqM) Est GFR (CKD-EPI)NonAf 39 (>60 ml/min/1.73 sqM) Glucose 156 H (74-99) mg/dL Calcium 8.6 (8.4-10.2) mg/dL Total Bilirubin 0.8 (0.2-1.3) mg/dL AST 15 (14-36) U/L ALT 12 (9-52) U/L Alkaline Phosphatase 154 H (38-126) U/L Total Protein 6.6 (6.3-8.2) g/dL Albumin 3.5 (3.5-5.0) g/dL Disposition Clinical Impression: Leg swelling Disposition: HOME SELF-CARE Condition: Stable Instructions (If sedation given, give patient instructions): Leg Edema (ED) Additional Instructions: Please follow up primary care. Please return to emergency department if symptoms worsen. Is patient prescribed a controlled substance at d/c from ED?: No Referrals: Arnol Santiago MD [Primary Care Provider] - 1-2 days Time of Disposition: 22:31
--- NOTE | 2019-02-23 19:42 | US ---
EXAMINATION TYPE: US venous doppler duplex LE BI DATE OF EXAM: 02/23/2019 7:15 PM COMPARISON: NONE CLINICAL HISTORY: Pain. Swelling. SIDE PERFORMED: Bilateral TECHNIQUE: The lower extremity deep venous system is examined utilizing real time linear array sonog yaakov with graded compression, doppler sonography and color-flow sonography. VESSELS IMAGED: External Iliac Vein (EIV) Common Femoral Vein Deep Femoral Vein Greater Saphenous Vein * Femoral Vein Popliteal Vein Limited study due to body habitus. Right Leg: Appears negative for DVT. Left Leg: Appears negative for DVT. IMPRESSION: No evidence of deep venous thrombosis in both legs.
[2019-02-23] MEDS ORDERED: FUROSEMIDE 10 MG/ML 2 ML VIAL IV ONE (20:11)
--- NOTE | 2019-02-23 20:48 | XR ---
EXAMINATION TYPE: XR chest 2V DATE OF EXAM: 02/23/2019 COMPARISON: 05/30/2018 HISTORY: Pain and swelling TECHNIQUE: Frontal and lateral views of the chest are obtained. FINDINGS: Heart is enlarged. There is no gross heart failure. There is mild coarsening of the lung m arkings. There are sternal wires. There is no pleural effusion. IMPRESSION: Cardiomegaly. Mild pulmonary fibrosis. No acute lung disease. No change.
[2019-02-23 20:49] LABS: Anisocytosis Slight; Basophils % (A) 1 %; Eosinophils # (A) 0.4 k/uL (0-0.7); Eosinophils % (A) 7 %; HCT 29.9 % (34.0-46.0); HGB 8.6 gm/dL (11.4-16.0); Hypochromasia Marked; Lymphocytes # (A) 0.7 k/uL (1.0-4.8); Lymphocytes % (A) 11 %; MCH 24.4 pg (25.0-35.0); MCHC 28.8 g/dL (31.0-37.0); MCV 84.6 fL (80.0-100.0); Mean Platelet Volume 7.6; Monocytes # (A) 0.4 k/uL (0-1.0); Monocytes % (A) 6 %; Neutrophils # (A) 4.7 k/uL (1.3-7.7); Neutrophils % (A) 74 %; Platelet Count 239 k/uL (150-450); RBC 3.53 m/uL (3.80-5.40); RDW 18.4 % (11.5-15.5); WBC 6.4 k/uL (3.8-10.6)
[2019-02-23 21:01] LABS: Albumin 3.5 g/dL (3.5-5.0); Calcium 8.6 mg/dL (8.4-10.2); Total Bilirubin 0.8 mg/dL (0.2-1.3); Total Protein 6.6 g/dL (6.3-8.2)
[2019-02-23 23:02] VITALS: BP 123/55; PULSE 61; RESP 16; TEMP 97.9
== END 2019-02-23 23:35 | disposition home or self-care (01) ==
LOC: EC 16:37
DX: E11.622 Type 2 diabetes mellitus with other skin ulcer (principal); L97.929 Non-pressure chronic ulcer of unspecified part of left lower leg with unspecified severity; L97.919 Non-pressure chronic ulcer of unspecified part of right lower leg with unspecified severity; E11.40 Type 2 diabetes mellitus with diabetic neuropathy, unspecified; I11.0 Hypertensive heart disease with heart failure; I50.9 Heart failure, unspecified; I25.2 Old myocardial infarction; K21.9 Gastro-esophageal reflux disease without esophagitis; Z87.891 Personal history of nicotine dependence; Z88.8 Allergy status to other drugs, medicaments and biological substances; Z91.048 Other nonmedicinal substance allergy status; Z79.02 Long term (current) use of antithrombotics/antiplatelets; Z79.4 Long term (current) use of insulin; Z79.899 Other long term (current) drug therapy; Z86.14 Personal history of Methicillin resistant Staphylococcus aureus infection; Z95.1 Presence of aortocoronary bypass graft
CPT/HCPCS: 36415; 80053; 85025; 71046; 93970; 99284; 96374; J1940

== ENCOUNTER 2019-03-20 12:01 | Emergency (ER) | payer MEDICARE, OTHER ==
[2019-03-20 12:15] VITALS: RESP 18; TEMP 98.1
[2019-03-20 14:12] LABS: Anisocytosis Slight; Basophils % (A) 1 %; Eosinophils # (A) 0.4 k/uL (0-0.7); Eosinophils % (A) 6 %; HCT 28.7 % (34.0-46.0); HGB 8.6 gm/dL (11.4-16.0); Hypochromasia Marked; Lymphocytes # (A) 0.9 k/uL (1.0-4.8); Lymphocytes % (A) 13 %; MCV 83.4 fL (80.0-100.0); Mean Platelet Volume 7.7; Monocytes # (A) 0.5 k/uL (0-1.0); Monocytes % (A) 7 %; Neutrophils # (A) 4.8 k/uL (1.3-7.7); Neutrophils % (A) 72 %; Platelet Count 234 k/uL (150-450); RBC 3.45 m/uL (3.80-5.40); RDW 18.6 % (11.5-15.5); WBC 6.6 k/uL (3.8-10.6)
[2019-03-20 14:17] LABS: Albumin 3.5 g/dL (3.5-5.0); Calcium 8.6 mg/dL (8.4-10.2); Potassium 4.6 mmol/L (3.5-5.1); Total Bilirubin 1.3 mg/dL (0.2-1.3); Total Protein 6.6 g/dL (6.3-8.2)
[2019-03-20 14:23] LABS: INR 1.2 (<1.2); Partial Thromboplastin Time 24.9 sec (22.0-30.0); Prothrombin Time 12.7 sec (9.0-12.0)
[2019-03-20] MEDS ORDERED: cefTRIAXone IN SWFI 1,000 MG/10 ML SYRINGE IVP STA (15:54)
[2019-03-20 16:25] VITALS: BP 105/53; PULSE 65
--- NOTE | 2019-03-20 16:56 | ED ---
Wound/Laceration HPI - General Chief Complaint: Wound/Laceration Stated Complaint: abscess Time Seen by Provider: 03/20/19 12:34 Source: patient, EMS Mode of arrival: EMS Limitations: physical limitation - History of Present Illness Initial Comments: 58-year-old female with history of chronic pressure ulcers of the bilateral buttocks and bilateral lower extremities due to diabetes and obesity presenting today for chief complaint of right breast tenderness and redness. Patient states the past 2 days she has noticed right breast tenderness and redness. She states it feels as though the right breast is hard. Patient has a fever chills night sweats or flulike symptoms. She states she does have chronic wounds however go sit wound center for care she states she has an appointment tomorrow. Patient denies any lower extremity pain or increasing pain at her wounds of the buttock. Remaining ROS (-). Upon arrival patient appears well, VS within normal limits. Afebrile. - Related Data Home Medications Medication Instructions Recorded Confirmed Albuterol Sulfate [Proair Hfa] 2 puff INHALATION RT-QID PRN 02/18/18 03/20/19 Carvedilol [Coreg] 12.5 mg PO BID 08/17/18 03/20/19 Clopidogrel [Plavix] 75 mg PO DAILY 08/17/18 03/20/19 Insulin Detemir [Levemir Flextouch] 30 units SQ HS 08/17/18 03/20/19 Acetaminophen Tab [Tylenol] 650 mg PO Q6H PRN 02/23/19 03/20/19 INSULIN ASPART (NovoLOG) [NovoLOG See Protocol SQ AC-TID 02/23/19 03/20/19 (formulary)] Omeprazole 20 mg PO DAILY 02/23/19 03/20/19 Zinc Oxide 20% Oint 1 applic TOPICAL BID PRN 02/23/19 03/20/19 Previous Rx's Medication Instructions Recorded Aspirin 81 mg PO DAILY chew 06/02/18 Furosemide [Lasix] 20 mg PO BID #60 tablet 01/03/19 Potassium Chloride ER [K-Dur 20] 20 meq PO DAILY #30 tab 01/03/19 Gabapentin [Neurontin] 300 mg PO HS #3 capsule 02/17/19 Cephalexin [Keflex] 500 mg PO Q6HR 10 Days #40 cap 03/20/19 Clotrimazole Cream [Lotrimin Cream] 1 applic TOPICAL BID 10 Days #1 03/20/19 tube Allergies Allergy/AdvReac Type Severity Reaction Status Date / Time collagenase Clostridium Allergy Unknown Verified 03/20/19 12:11 histolyticu [From Santyl] pollen extracts AdvReac Mild Itching Verified 03/20/19 12:11 Review of Systems ROS Statement: Those systems with pertinent positive or pertinent negative responses have been documented in the HPI. ROS Other: All systems not noted in ROS Statement are negative. Past Medical History Past Medical History: Heart Failure, Diabetes Mellitus, GERD/Reflux, Hyperlipidemia, Hypertension, Myocardial Infarction ([place]), Rheumatoid Arthritis ([place]) Additional Past Medical History / Comment(s): neuropathy,edentulous, cellulitis lt leg,cataracats, past uterine cysts, "gallstones", chronic back pain.. "i've had a rash for this past year on shoulders,bra line and lt leg". Last Myocardial Infarction Date:: 2014 History of Any Multi-Drug Resistant Organisms: ESBL, MRSA Date of last positivie culture/infection: 02/13/19 MRSA MDRO Source:: MRSA LEG 10/13/17 ESBL URINE Past Surgical History: Appendectomy, Section, Coronary Bypass/CABG Additional Past Surgical History / Comment(s): d&c,, x2, 2 vessel cabg,uterine ablation. Double bypass 7 years ago this month Past Anesthesia/Blood Transfusion Reactions: No Reported Reaction Additional Past Anesthesia/Blood Transfusion Reaction / Comment(s): clausterphobia Past Psychological History: Depression Smoking Status: Former smoker Past Alcohol Use History: None Reported Past Drug Use History: None Reported - Past Family History Mother Additional Family Medical History / Comment(s): anuerysm Father Family Medical History: CVA/TIA, Diabetes Mellitus, Myocardial Infarction ([place]) Sister(s) Additional Family Medical History / Comment(s): one sister had "hole in her heart" and a kidney transplant and another sister had ms. General Exam - General Exam Comments Initial Comments: General: The patient is awake and alert, in no distress, and does not appear acutely ill. Eye: Pupils are equal, round and reactive to light, extra-ocular movements are intact. No nystagmus. There is normal conjunctiva bilaterally. No signs of icterus. Ears, nose, mouth and throat: There are moist mucous membranes and no oral lesions. Neck: The neck is supple, there is no tenderness or JVD. Cardiovascular: There is a regular rate and rhythm. No murmur, rub or gallop is appreciated. Respiratory: Lungs are clear to auscultation, respirations are non-labored, breath sounds are equal. No wheezes, stridor, rales, or rhonchi. Gastrointestinal: Soft, non-distended, non-tender abdomen without masses or organomegaly noted. There is no rebound or guarding present. No CVA tenderness. Bowel sounds are unremarkable. Musculoskeletal: Normal ROM, no tenderness. Strength 5/5. Sensation intact. Radial pulses equal bilaterally 2+. Neurological: A&O x 3. CN II-XII intact, There are no obvious motor or sensory deficits. Coordination appears grossly intact. Speech is normal. Skin: Skin is warm and dry and no rashes or lesions are noted. CDI bandages of the LE b/l. Right breast has orange peel appearance, redness of the right breast, mild warmth, no localized mass. Erythema noted in the crease of breast. Psychiatric: Cooperative, appropriate mood & affect, normal judgment. Limitations: physical limitation Course Vital Signs 03/20/19 03/20/19 12:11 16:25 Temperature 98.1 F Pulse Rate 63 65 Respiratory 18 18 Rate Blood Pressure 121/53 105/53 O2 Sat by Pulse 95 97 Oximetry Medical Decision Making - Medical Decision Making 58-year-old female presents today for chief complaint of right breast pain and tenderness. Intertrigo noted on examination. Patient's breast is mildly warm to palpation, rough appearance at the 6oclock position of the right breast. Pt WBC WNL. Patient afebrile. Denies constitutional symptoms. Ultrasound of the right breast reveals diffuse edema of the soft tissues consistent with mastitis versus inflammatory breast cancer. I discussed VS, patient laboratory studies and history and US results with attending Dr. Mcclendon who at this time recommend discharge with outpatient antibiotics, and surgery follow-up for biopsy to r/o breast cancer. Pt BP within acceptable limits. She denies any other complaints. Patient states she wants to go home. Patient is to f/u with wound care clinic for chronic wounds tomorrow and return for flu-like symptoms or fever. Patient verbalized understanding of plan and strict return parameters and was discussed - Lab Data Result diagrams: 03/20/19 13:45 03/20/19 13:45 Lab Results 03/20/19 03/20/19 03/20/19 Range/Units 13:45 13:45 13:45 WBC 6.6 (3.8-10.6) k/uL RBC 3.45 L (3.80-5.40) m/uL Hgb 8.6 L (11.4-16.0) gm/dL Hct 28.7 L (34.0-46.0) % MCV 83.4 (80.0-100.0) fL MCH 25.0 (25.0-35.0) pg MCHC 30.0 L (31.0-37.0) g/dL RDW 18.6 H (11.5-15.5) % Plt Count 234 (150-450) k/uL Neutrophils % 72 % Lymphocytes % 13 % Monocytes % 7 % Eosinophils % 6 % Basophils % 1 % Neutrophils # 4.8 (1.3-7.7) k/uL Lymphocytes # 0.9 L (1.0-4.8) k/uL Monocytes # 0.5 (0-1.0) k/uL Eosinophils # 0.4 (0-0.7) k/uL Basophils # 0.0 (0-0.2) k/uL Hypochromasia Marked Anisocytosis Slight PT (9.0-12.0) sec INR (<1.2) APTT (22.0-30.0) sec Sodium 143 (137-145) mmol/L Potassium 4.6 (3.5-5.1) mmol/L Chloride 111 H (98-107) mmol/L Carbon Dioxide 23 (22-30) mmol/L Anion Gap 9 mmol/L BUN 51 H (7-17) mg/dL Creatinine 1.47 H (0.52-1.04) mg/dL Est GFR (CKD-EPI)AfAm 45 (>60 ml/min/1.73 sqM) Est GFR (CKD-EPI)NonAf 39 (>60 ml/min/1.73 sqM) Glucose 96 (74-99) mg/dL Plasma Lactic Acid Sylvester 0.9 (0.7-2.0) mmol/L Calcium 8.6 (8.4-10.2) mg/dL Total Bilirubin 1.3 (0.2-1.3) mg/dL AST 16 (14-36) U/L ALT 18 (9-52) U/L Alkaline Phosphatase 129 H (38-126) U/L Total Protein 6.6 (6.3-8.2) g/dL Albumin 3.5 (3.5-5.0) g/dL 03/20/19 Range/Units 13:45 WBC (3.8-10.6) k/uL RBC (3.80-5.40) m/uL Hgb (11.4-16.0) gm/dL Hct (34.0-46.0) % MCV (80.0-100.0) fL MCH (25.0-35.0) pg MCHC (31.0-37.0) g/dL RDW (11.5-15.5) % Plt Count (150-450) k/uL Neutrophils % % Lymphocytes % % Monocytes % % Eosinophils % % Basophils % % Neutrophils # (1.3-7.7) k/uL Lymphocytes # (1.0-4.8) k/uL Monocytes # (0-1.0) k/uL Eosinophils # (0-0.7) k/uL Basophils # (0-0.2) k/uL Hypochromasia Anisocytosis PT 12.7 H (9.0-12.0) sec INR 1.2 H (<1.2) APTT 24.9 (22.0-30.0) sec Sodium (137-145) mmol/L Potassium (3.5-5.1) mmol/L Chloride (98-107) mmol/L Carbon Dioxide (22-30) mmol/L Anion Gap mmol/L BUN (7-17) mg/dL Creatinine (0.52-1.04) mg/dL Est GFR (CKD-EPI)AfAm (>60 ml/min/1.73 sqM) Est GFR (CKD-EPI)NonAf (>60 ml/min/1.73 sqM) Glucose (74-99) mg/dL Plasma Lactic Acid Sylvester (0.7-2.0) mmol/L Calcium (8.4-10.2) mg/dL Total Bilirubin (0.2-1.3) mg/dL AST (14-36) U/L ALT (9-52) U/L Alkaline Phosphatase (38-126) U/L Total Protein (6.3-8.2) g/dL Albumin (3.5-5.0) g/dL Disposition Clinical Impression: Mastitis, Chronic wound of extremity, Pressure ulcer Disposition: HOME SELF-CARE Condition: Good Instructions (If sedation given, give patient instructions): Mastitis (ED), Fine Needle Aspiration Biopsy (DC) Additional Instructions: Please use medication as discussed. Please follow-up with family doctor in the next 2 days, please present to wound clinic tomorrow. Please return for fever or flu like symptoms. Please use triamcinolone cream as discussed and keep area dry under breasts. Please follow- up with Dr. Mishra for biopsy to rule out breast cancer. Please return to emergency room if the symptoms increase or worsen or for any other concerns. Prescriptions: Cephalexin [Keflex] 500 mg PO Q6HR 10 Days #40 cap Clotrimazole Cream [Lotrimin Cream] 1 applic TOPICAL BID 10 Days #1 tube Is patient prescribed a controlled substance at d/c from ED?: No Referrals: Jason Garcia MD [Primary Care Provider] - 1-2 days Delia North MD [STAFF PHYSICIAN] - 1-2 days Time of Disposition: 16:55
--- NOTE | 2019-03-21 08:38 | USB ---
Reason for exam: clinical finding. US Breast RT Right complete breast ultrasound includes all four quadrants, the retroareolar region and axilla. Finding demonstrates no focal fluid collection. Diffuse edema throughout the right breast. Mild diffuse skin thickening. Considerations are for mastitis/cellulitis and inflammatory breast carcinoma. Punch biopsy recommended given no erythema or pain. ASSESSMENT: Suspicious, BI-RAD 4 RECOMMENDATION: Surgical consultation of the right breast. (punch biopsy)
== END 2019-03-20 18:10 | disposition home or self-care (01) ==
LOC: EC 12:01
DX: N61.0 Mastitis without abscess (principal); L89.329 Pressure ulcer of left buttock, unspecified stage; L89.319 Pressure ulcer of right buttock, unspecified stage; L89.899 Pressure ulcer of other site, unspecified stage; E11.622 Type 2 diabetes mellitus with other skin ulcer; E66.9 Obesity, unspecified; Z68.43 Body mass index [BMI] 50.0-59.9, adult; I11.0 Hypertensive heart disease with heart failure; I50.9 Heart failure, unspecified; E78.5 Hyperlipidemia, unspecified; K21.9 Gastro-esophageal reflux disease without esophagitis; I25.2 Old myocardial infarction; E11.40 Type 2 diabetes mellitus with diabetic neuropathy, unspecified; Z79.02 Long term (current) use of antithrombotics/antiplatelets; Z79.4 Long term (current) use of insulin; Z79.899 Other long term (current) drug therapy; Z88.8 Allergy status to other drugs, medicaments and biological substances; Z91.018 Allergy to other foods; Z87.891 Personal history of nicotine dependence; Z95.1 Presence of aortocoronary bypass graft
CPT/HCPCS: 36415; 80053; 83605; 85025; 85610; 85730; 87040; 76641; 99284; 96374; J0696; 87077; 87186

== ENCOUNTER 2019-03-21 09:05 | Inpatient (IN) | payer MEDICARE, OTHER ==
[2019-03-21] MEDS ORDERED: VANCOMYCIN IV PER PHARMACY 1 EACH MISC MISCELLANE PRN (10:12)
[2019-03-21] MEDS ORDERED: PIPERACILLIN-TAZOBACTAM 3.375 GM in SODIUM CHLORIDE 0.9% 100 ML IVPB STA (10:12)
[2019-03-21] MEDS ORDERED: NALOXONE 0.4 MG/ML 1 ML VIAL IV PRN (10:17)
--- NOTE | 2019-03-21 10:17 | ED ---
General Adult HPI - General Chief complaint: Extremity Problem,Nontraumatic Stated complaint: poss infection Time Seen by Provider: 03/21/19 09:35 Source: patient, EMS, RN notes reviewed, old records reviewed Mode of arrival: EMS Limitations: no limitations - History of Present Illness Initial comments: Patient is a pleasant 58-year-old female presenting to the emergency department with concern for infection. Patient was here yesterday with right breast discomfort and diagnosed with mastitis. Patient has not yet started antibiotics. Patient states she was called this morning and advised come back to the emergency department for IV antibiotics. Patient denies fevers. Patient states right breast discomfort is somewhat worse. Patient has noticed fullness and some redness. Patient states she does have chronic bilateral leg wounds. Patient has been going to wound care, last was 7-10 days ago. Patient does have a history of previous decline and IV antibiotic treatment however had that removed a week or 2 ago. Patient denies fevers. Patient does have chronic cough. Patient states she does have mild chronic dyspnea that is unchanged. Patient states this has resolved with oxygen the emergency department. - Related Data Home Medications Medication Instructions Recorded Confirmed Albuterol Sulfate [Proair Hfa] 2 puff INHALATION RT-QID PRN 02/18/18 03/21/19 Carvedilol [Coreg] 12.5 mg PO BID 08/17/18 03/21/19 Clopidogrel [Plavix] 75 mg PO DAILY 08/17/18 03/21/19 Insulin Detemir [Levemir Flextouch] 30 units SQ HS 08/17/18 03/21/19 Acetaminophen Tab [Tylenol] 650 mg PO Q6H PRN 02/23/19 03/21/19 INSULIN ASPART (NovoLOG) [NovoLOG See Protocol SQ AC-TID 02/23/19 03/21/19 (formulary)] Omeprazole 20 mg PO DAILY 02/23/19 03/21/19 Zinc Oxide 20% Oint 1 applic TOPICAL BID PRN 02/23/19 03/21/19 Previous Rx's Medication Instructions Recorded Aspirin 81 mg PO DAILY chew 06/02/18 Furosemide [Lasix] 20 mg PO BID #60 tablet 01/03/19 Potassium Chloride ER [K-Dur 20] 20 meq PO DAILY #30 tab 01/03/19 Gabapentin [Neurontin] 300 mg PO HS #3 capsule 02/17/19 Cephalexin [Keflex] 500 mg PO Q6HR 10 Days #40 cap 03/20/19 Clotrimazole Cream [Lotrimin Cream] 1 applic TOPICAL BID 10 Days #1 03/20/19 tube Allergies Allergy/AdvReac Type Severity Reaction Status Date / Time collagenase Clostridium Allergy Unknown Verified 03/21/19 09:30 histolyticu [From Santyl] pollen extracts AdvReac Mild Itching Verified 03/21/19 09:30 Review of Systems ROS Statement: Those systems with pertinent positive or pertinent negative responses have been documented in the HPI. ROS Other: All systems not noted in ROS Statement are negative. Constitutional: Denies: fever Eyes: Denies: eye pain ENT: Denies: ear pain Respiratory: Reports: as per HPI, cough Cardiovascular: Denies: chest pain Endocrine: Denies: fatigue Gastrointestinal: Denies: abdominal pain Genitourinary: Denies: dysuria Musculoskeletal: Denies: back pain Skin: Reports: as per HPI, rash Past Medical History Past Medical History: Heart Failure, Diabetes Mellitus, GERD/Reflux, Hy perlipidemia, Hypertension, Myocardial Infarction ([place]), Rheumatoid Arthritis ([place]) Additional Past Medical History / Comment(s): neuropathy,edentulous, cellulitis lt leg,cataracats, past uterine cysts, "gallstones", chronic back pain.. "i've had a rash for this past year on shoulders,bra line and lt leg". Last Myocardial Infarction Date:: 2014 History of Any Multi-Drug Resistant Organisms: ESBL, MRSA Date of last positivie culture/infection: 02/13/19 MRSA MDRO Source:: MRSA LEG 10/13/17 ESBL URINE Past Surgical History: Appendectomy, Section, Coronary Bypass/CABG Additional Past Surgical History / Comment(s): d&c,, x2, 2 vessel cabg,uterine ablation. Double bypass 7 years ago this month Past Anesthesia/Blood Transfusion Reactions: No Reported Reaction Additional Past Anesthesia/Blood Transfusion Reaction / Comment(s): clausterphobia Past Psychological History: Depression Smoking Status: Former smoker Past Alcohol Use History: None Reported Past Drug Use History: None Reported - Past Family History Mother Additional Family Medical History / Comment(s): anuerysm Father Family Medical History: CVA/TIA, Diabetes Mellitus, Myocardial Infarction ([place]) Sister(s) Additional Family Medical History / Comment(s): one sister had "hole in her heart" and a kidney transplant and another sister had ms. General Exam Limitations: no limitations General appearance: alert, in no apparent distress, obese Head exam: Present: atraumatic Eye exam: Present: normal appearance, PERRL ENT exam: Present: normal oropharynx Neck exam: Present: normal inspection Respiratory exam: Present: normal lung sounds bilaterally, other (Right breast with lateral firmness and mild erythema and mild to moderate tenderness.) Cardiovascular Exam: Present: regular rate, normal rhythm GI/Abdominal exam: Present: soft. Absent: tenderness Extremities exam: Present: pedal edema, other (Multiple bilateral lower leg ulcers with odor.) Neurological exam: Present: alert Psychiatric exam: Present: normal affect, normal mood Skin exam: Present: other (Multiple bilateral lower leg ulcers with odor. Right breast with mild erythema laterally.) Course Vital Signs 03/21/19 09:07 Temperature 98.2 F Pulse Rate 61 Respiratory 20 Rate Blood Pressure 125/52 O2 Sat by Pulse 97 Oximetry - Reevaluation(s) Reevaluation #1: 03/21/19 10:44 Case was discussed in detail with Dr. ayala, who will admit, Dr. Garcia. He does request consult with Dr. Acuña and Dr. North Disposition Clinical Impression: Mastitis, Bacteremia Disposition: ADMITTED IP TO THIS HOSP Is patient prescribed a controlled substance at d/c from ED?: No Decision Time: 10:16
[2019-03-21] MEDS ORDERED: VANCOMYCIN 2,250 MG in SODIUM CHLORIDE 0.9% 500 ML 500 ML IVPB ONE (11:00)
--- NOTE | 2019-03-21 11:33 | XR ---
EXAMINATION TYPE: XR chest 2V DATE OF EXAM: 03/21/2019 COMPARISON: 02/23/2019 HISTORY: Bilateral lower extremity infection TECHNIQUE: Frontal and lateral views of the chest are obtained. FINDINGS: There is an enlarged cardiomediastinal silhouette with post CABG changes. There is mild in terstitial pulmonary edema seen, similar to the prior. More confluent pulmonary edema seen on the lat eral view in the perihilar locations and retrocardiac airspace. No sizable pleural effusion or pneumo thorax. IMPRESSION: Findings suggest mild decompensated congestive heart failure.
[2019-03-21] MEDS: SODIUM CHLORIDE 0.9% 1,000 ML IV SCH (11:45)
--- NOTE | 2019-03-21 11:48 | XR ---
Bilateral legs HISTORY: Bilateral lower leg infection 2 views of each leg are submitted on a total of 8 images Osteoarthritic changes noted within the knees, there is marginal spurring medially with joint space l oss. Bone mineralization is mildly reduced. No fracture or dislocation. Plantar calcaneus spur is not ed at the right foot. Lucency in the soft tissues is compatible with cellulitis or edema. No periosti tis to suggest osteomyelitis. Vague soft tissue calcifications are felt likely to be vascular. Surgic al clips present along the medial aspect of the left lower extremity in the thigh region. IMPRESSION: Correlate for cellulitis, edema. Osteoarthritis within the knees and additional findings above.
[2019-03-21 11:53] LABS: Anisocytosis Slight; Basophils % (A) 0 %; Eosinophils # (A) 0.4 k/uL (0-0.7); Eosinophils % (A) 6 %; HCT 30.1 % (34.0-46.0); HGB 8.8 gm/dL (11.4-16.0); Hypochromasia Marked; Lymphocytes # (A) 0.6 k/uL (1.0-4.8); Lymphocytes % (A) 10 %; MCH 24.5 pg (25.0-35.0); MCHC 29.2 g/dL (31.0-37.0); Mean Platelet Volume 6.8; Monocytes # (A) 0.5 k/uL (0-1.0); Monocytes % (A) 7 %; Neutrophils # (A) 4.7 k/uL (1.3-7.7); Neutrophils % (A) 75 %; Platelet Count 232 k/uL (150-450); RBC 3.59 m/uL (3.80-5.40); RDW 18.8 % (11.5-15.5); WBC 6.3 k/uL (3.8-10.6)
[2019-03-21 11:57] LABS: Albumin 3.6 g/dL (3.5-5.0); Calcium 8.6 mg/dL (8.4-10.2); Potassium 4.6 mmol/L (3.5-5.1); Total Bilirubin 1.2 mg/dL (0.2-1.3); Total Protein 6.7 g/dL (6.3-8.2)
[2019-03-21 13:31] LABS: Glucose,Whole Blood 96 mg/dL (75-99)
[2019-03-21 17:12] LABS: Glucose,Whole Blood 130 mg/dL (75-99)
[2019-03-21] MEDS ORDERED: PIPERACILLIN-TAZOBACTAM 3.375 GM in SODIUM CHLORIDE 0.9% 100 ML IVPB SCH (20:00)
[2019-03-21] MEDS: CEFEPIME 2 GM in SODIUM CHLORIDE 0.9% 100 ML IVPB SCH (20:20)
[2019-03-21] MEDS ORDERED: ZINC OXIDE 20% OINT 28.4 GM TUBE TOPICAL PRN (20:22)
[2019-03-21 20:41] LABS: Glucose,Whole Blood 154 mg/dL (75-99)
[2019-03-21] MEDS: CARVEDILOL 12.5 MG TAB PO SCH (21:12)
[2019-03-21] MEDS: GABAPENTIN 300 MG CAP PO SCH (21:12)
[2019-03-21] MEDS: INSULIN DETEMIR (LEVEMIR) 100 UNIT/ML SYR SQ SCH (21:13)
[2019-03-21] MEDS: FUROSEMIDE 20 MG TAB PO SCH (21:15)
[2019-03-21] MEDS: CLOTRIMAZOLE 1% CREAM 15 GM TUBE TOPICAL SCH (21:15)
[2019-03-21] MEDS: INSULIN ASPART (NovoLOG) 100 UNIT/ML VIAL SQ SCH (21:15)
--- NOTE | 2019-03-22 00:06 | P.CONS ---
History of Present Illness - Reason for Consult Consult date: 03/21/19 - Chief Complaint weakness - History of Present Illness This is a 58-year-old female well known to ID service as she has chronic bilateral lower extremity ulcerations and [facility]. Her last point it was last Wednesday. She states she was doing fine following that but knows she needs to keep her legs elevated. On Wednesday she found that her legs were sopping wet. On Wednesday she was too weak to get out of bed and she slept until 3p.m. She called her caregiver and she was still too weak to get up. She had increasing pain to the right heel and also chills. She came into [facility] emergency [facility] for evaluation. She was found to be afebrile, white count 6.5, lactic acid 1.0. Creatinine was 1.53 which appears to be chronic. Blood culture was obtained. Patient was placed on Rocephin and admitted to the [facility] floor. Patient continues to have significant amount of serous and in some areas serosanguineous drainage from her lower extremities. Previous wound culture from November of this year is positive for MRSA, Proteus mirabilis, Acinetobacter and previous to this and August wound culture was Pseudomonas aeruginosa and Providencia rettgeri. Eventually improved and was discharged home. Now short while later she is again ill with increasing lower extremity edema feeling poorly having fever and malaise and constantly was directed back to hospital. She's now been admitted with concerns to gram-negative sepsis the infectious diseases consultation was requested. Review of Systems Constitutional: Reports anorexia, Reports chills, Reports daytime sleepiness, Re ports fatigue, Reports lethargy, Reports malaise, Reports poor appetite, Reports weakness, Denies fever Eyes: denies blurred vision, denies pain Ears, nose, mouth and throat: Denies dental pain, Denies dysphagia, Denies mouth pain, Denies nasal congestion, Denies nasal discharge, Denies vertigo Cardiovascular: Reports edema, Reports leg edema, Denies decreased exercise tolerance, Denies dyspnea on exertion, Denies lightheadedness, Denies shortness of breath, Denies syncope Respiratory: Denies congestion, Denies cough, Denies cough with sputum, Denies dyspnea, Denies excessive sputum, Denies hemoptysis, Denies home oxygen, Denies wheezing Gastrointestinal: Denies abdominal pain, Denies diarrhea, Denies loss of appetite, Denies nausea, Denies vomiting Genitourinary: Denies dysuria Musculoskeletal: Reports gait dysfunction, Reports muscle weakness Integumentary: Reports rash, Reports sores, Reports wounds, Denies pruritus Neurological: Reports gait dysfunction, Denies aphasia, Denies balance difficulties, Denies change in mentation, Denies change in speech, Denies seizures Psychiatric: Denies anxiety, Denies depression Endocrine: Denies fatigue, Denies weight change Past Medical History Past Medical History: Heart Failure, Diabetes Mellitus, GERD/Reflux, Hyperlipidemia, Hypertension, Myocardial Infarction (SC), Osteoarthritis (OA), Rheumatoid Arthritis (RA) Additional Past Medical History / Comment(s): Chronic bilateral venous stasis ulcers, bilateral lower leg cellulitis, pt states she has bilateral wounds on her thighs as well, IDDM type II, neuropathy bilateral legs/feet, CKD stage IV, Chronic back and bilateral leg pain, bilateral cataracts, gallstones, rash on bilateral shoulders/chest and L leg. Last Myocardial Infarction Date:: 2011 History of Any Multi-Drug Resistant Organisms: ESBL, MRSA Year Discovered:: 02/13/19 MRSA MDRO Source:: MRSA LEG 10/13/17 ESBL URINE Past Surgical History: Appendectomy, Section, Coronary Bypass/CABG, Heart Catheterization, Uterine Ablation Additional Past Surgical History / Comment(s): 2011 CABG 2 vessel, D&C, C- sections x 2, Past Anesthesia/Blood Transfusion Reactions: No Reported Reaction Additional Past Anesthesia/Blood Transfusion Reaction / Comm: clausterphobia Additional Psychological History / Comment(s): pt lives alone at [facility]. (lost her of 30 years in jun 2017). uses walker when up and wheelchair for longer distances. has care provider thru her insurance company once a week. Denies tobacco smoking or alcohol use. Medically disabled. No experience or international travel. No animals in the home Smoking Status: Former smoker - Past Family History Mother Additional Family Medical History / Comment(s): anuerysm Father Family Medical History: CVA/TIA, Diabetes Mellitus, Myocardial Infarction (SC) Sister(s) Additional Family Medical History / Comment(s): one sister had "hole in her heart" and a kidney transplant and another sister had ms. Medications and Allergies Home Medications and Allergies Comment(s): Current Medications Acetaminophen (Tylenol Tab) 650 mg PO Q6H PRN PRN Reason: Pain Albuterol Sulfate (Ventolin Nebulized) 2.5 mg INHALATION RT-QID PRN PRN Reason: Shortness Of Breath Aspirin (Aspirin) 81 mg PO DAILY [facility] Carvedilol (Coreg) 12.5 mg PO BID [facility] Last Admin: 03/21/19 21:12 Dose: 12.5 mg Documented by: Clopidogrel Bisulfate (Plavix) 75 mg PO DAILY [facility] Clotrimazole (Lotrimin Cream) 1 applic TOPICAL BID [facility] Last Admin: 03/21/19 21:15 Dose: Not Given Documented by: Furosemide (Lasix) 20 mg PO BID@0900,1600 [facility] Last Admin: 03/21/19 21:15 Dose: Not Given Documented by: Gabapentin (Neurontin) 300 mg PO [facility] Last Admin: 03/21/19 21:12 Dose: 300 mg Documented by: Sodium Chloride (Saline 0.9%) 1,000 mls @ 20 mls/hr IV .Q24H [facility] Last Admin: 03/21/19 11:45 Dose: 20 mls/hr Documented by: Vancomycin HCl 2,000 mg/ (Sodium Chloride) 500 mls @ 167 mls/hr IVPB Q24H [facility] Cefepime HCl 2 gm/ Sodium (Chloride) 100 mls @ 200 mls/hr IVPB Q12HR [facility] Last Admin: 03/21/19 20:20 Dose: 200 mls/hr Documented by: Insulin Aspart (Novolog) 0 unit SQ [facility]; Protocol Last Admin: 03/21/19 21:15 Dose: Not Given Documented by: Insulin Detemir (Levemir) 30 unit SQ [facility] Last Admin: 03/21/19 21:13 Dose: 30 unit Documented by: Multi-Ingredient Ointment (Zinc Oxide 20% Oint) 1 applic TOPICAL BID PRN PRN Reason: LEGS Naloxone HCl (Narcan) 0.2 mg IV Q2M PRN PRN Reason: Opioid Reversal Pantoprazole Sodium (Protonix) 40 mg PO AC-BRKFST [facility] Potassium Chloride (K-Dur 20) 20 meq PO DAILY [facility] Home Medications Medication Instructions Recorded Confirmed Type Albuterol Sulfate [Proair Hfa] 2 puff INHALATION RT-QID PRN 02/18/18 03/21/19 History Aspirin 81 mg PO DAILY chew 06/02/18 03/21/19 Rx Carvedilol [Coreg] 12.5 mg PO BID 08/17/18 03/21/19 History Clopidogrel [Plavix] 75 mg PO DAILY 08/17/18 03/21/19 History Insulin Detemir [Levemir Flextouch] 30 units SQ HS 08/17/18 03/21/19 History Furosemide [Lasix] 20 mg PO BID #60 tablet 01/03/19 03/21/19 Rx Potassium Chloride ER [K-Dur 20] 20 meq PO DAILY #30 tab 01/03/19 03/21/19 Rx Gabapentin [Neurontin] 300 mg PO HS #3 capsule 02/17/19 03/21/19 Rx Acetaminophen Tab [Tylenol] 650 mg PO Q6H PRN 02/23/19 03/21/19 History INSULIN ASPART (NovoLOG) [NovoLOG See Protocol SQ AC-TID 02/23/19 03/21/19 History (formulary)] Omeprazole 20 mg PO DAILY 02/23/19 03/21/19 History Zinc Oxide 20% Oint 1 applic TOPICAL BID PRN 02/23/19 03/21/19 History Clotrimazole Cream [Lotrimin Cream] 1 applic TOPICAL BID 10 Days #1 03/20/19 03/21/19 Rx tube Allergies Allergy/AdvReac Type Severity Reaction Status Date / Time collagenase Clostridium Allergy Unknown Verified 03/21/19 09:30 histolyticu [From Santyl] latex Allergy Rash/Hives Verified 03/21/19 15:52 pollen extracts AdvReac Mild Itching Verified 03/21/19 09:30 Physical Exam Vitals: Vital Signs Temp Pulse Pulse Resp BP BP Pulse Ox 03/21/19 23:47 16 03/21/19 20:00 16 03/21/19 19:10 98.0 F 56 L 18 126/71 95 03/21/19 17:55 17 03/21/19 13:51 97.4 F L 82 17 137/55 93 L 03/21/19 11:46 97.0 F L 58 L 16 111/46 94 L 03/21/19 09:07 98.2 F 61 20 125/52 97 Intake and Output 03/21/19 03/21/19 03/22/19 14:59 22:59 06:59 Other: Voiding Method Diaper Diaper Weight 127.006 kg Gen: This is a morbidly obese 58-year-old female. Patient is resting in bed with head of the bed of appears to be comfortable and in no acute distress. HEENT: Head is atraumatic, normocephalic. Pupils equal, round. Sclerae is anicteric. Conjunctiva pink. Mucous members of the mouth are moist. Patient is edentulous. No thrush noted. NECK: Supple. No JVD. No lymphadenopathy. No thyromegaly. LUNGS: Diminished. No wheezes or rhonchi. No intercostal retractions. HEART: Regular rate and rhythm. No murmur. ABDOMEN: Morbidly obese. Soft. Bowel sounds are present. No masses. No tenderness. Mild erythema under abdominal folds and moisture noted under bilateral breasts. EXTREMITIES: 2+ bilateral pedal edema. Large dressings in place of bilateral lower extremities was not removed for evaluation. Significant serous and in some areas serosanguineous drainage. Please evincing photography for the multiple ulcerations that include bilateral proximal posterior thighs, bilateral lower extremities in the left heel NEUROLOGICAL: Patient is awake, alert and oriented x3. Results CBC & Chem 7: 03/21/19 11:31 03/21/19 11:31 Labs: Abnormal Lab Results - Last 24 Hours (Table) 03/21/19 03/21/19 03/21/19 Range/Units 11:31 11:31 17:10 RBC 3.59 L (3.80-5.40) m/uL Hgb 8.8 L (11.4-16.0) gm/dL Hct 30.1 L (34.0-46.0) % MCH 24.5 L (25.0-35.0) pg MCHC 29.2 L (31.0-37.0) g/dL RDW 18.8 H (11.5-15.5) % Lymphocytes # 0.6 L (1.0-4.8) k/uL Chloride 112 H (98-107) mmol/L BUN 48 H (7-17) mg/dL Creatinine 1.33 H (0.52-1.04) mg/dL Glucose 102 H (74-99) mg/dL POC Glucose (mg/dL) 130 H (75-99) mg/dL Alkaline Phosphatase 130 H (38-126) U/L 03/21/19 Range/Units 20:38 RBC (3.80-5.40) m/uL Hgb (11.4-16.0) gm/dL Hct (34.0-46.0) % MCH (25.0-35.0) pg MCHC (31.0-37.0) g/dL RDW (11.5-15.5) % Lymphocytes # (1.0-4.8) k/uL Chloride (98-107) mmol/L BUN (7-17) mg/dL Creatinine (0.52-1.04) mg/dL Glucose (74-99) mg/dL POC Glucose (mg/dL) 154 H (75-99) mg/dL Alkaline Phosphatase (38-126) U/L Laboratory Results WBC 6.3 k/uL (3.8-10.6) 03/21/19 11:31 RBC 3.59 m/uL (3.80-5.40) L 03/21/19 11:31 Hgb 8.8 gm/dL (11.4-16.0) L 03/21/19 11:31 Hct 30.1 % (34.0-46.0) L 03/21/19 11:31 MCV 84.0 fL (80.0-100.0) 03/21/19 11:31 MCH 24.5 pg (25.0-35.0) L 03/21/19 11:31 MCHC 29.2 g/dL (31.0-37.0) L 03/21/19 11:31 RDW 18.8 % (11.5-15.5) H 03/21/19 11:31 Plt Count 232 k/uL (150-450) 03/21/19 11:31 Neutrophils % 75 % 03/21/19 11:31 Lymphocytes % 10 % 03/21/19 11:31 Monocytes % 7 % 03/21/19 11:31 Eosinophils % 6 % 03/21/19 11:31 Basophils % 0 % 03/21/19 11:31 Neutrophils # 4.7 k/uL (1.3-7.7) 03/21/19 11:31 Lymphocytes # 0.6 k/uL (1.0-4.8) L 03/21/19 11:31 Monocytes # 0.5 k/uL (0-1.0) 03/21/19 11:31 Eosinophils # 0.4 k/uL (0-0.7) 03/21/19 11:31 Basophils # 0.0 k/uL (0-0.2) 03/21/19 11:31 Hypochromasia Marked 03/21/19 11:31 Anisocytosis Slight 03/21/19 11:31 Sodium 144 mmol/L (137-145) 03/21/19 11:31 Potassium 4.6 mmol/L (3.5-5.1) 03/21/19 11:31 Chloride 112 mmol/L (98-107) H 03/21/19 11:31 Carbon Dioxide 24 mmol/L (22-30) 03/21/19 11:31 Anion Gap 8 mmol/L 03/21/19 11:31 BUN 48 mg/dL (7-17) H 03/21/19 11:31 Creatinine 1.33 mg/dL (0.52-1.04) H 03/21/19 11:31 Est GFR (CKD-EPI)AfAm 50 (>60 ml/min/1.73 sqM) 03/21/19 11:31 Est GFR (CKD-EPI)NonAf 44 (>60 ml/min/1.73 sqM) 03/21/19 11:31 Glucose 102 mg/dL (74-99) H 03/21/19 11:31 POC Glucose (mg/dL) 154 mg/dL (75-99) H 03/21/19 20:38 POC Glu Bariatric Nurse ID J Carlos Padilla 03/21/19 20:38 Plasma Lactic Acid Sylvester 1.0 mmol/L (0.7-2.0) 03/21/19 11:31 Calcium 8.6 mg/dL (8.4-10.2) 03/21/19 11:31 Total Bilirubin 1.2 mg/dL (0.2-1.3) 03/21/19 11:31 AST 16 U/L (14-36) 03/21/19 11:31 ALT 13 U/L (9-52) 03/21/19 11:31 Alkaline Phosphatase 130 U/L (38-126) H 03/21/19 11:31 Total Protein 6.7 g/dL (6.3-8.2) 03/21/19 11:31 Albumin 3.6 g/dL (3.5-5.0) 03/21/19 11:31 Assessment and Plan (1) Bacteremia Narrative/Plan: 58-year-old woman who has super obesity lives in a senior apartment complex. Has a history of being recently A care facility and discharge back to her home setting with home care. She rapidly has worsened and has developed worsening ulcerations of the bilateral lower extremities despite curing the wound healing Center. Just became quite weak and felt quite poorly constantly she presents the emergency center and others evidence of bacteremia which is resulted in her current admission. Rigidity laboratory reported gram-positive cocci in chains however they never now corrected this to gram-negative bacilli. Antibiotic therapy is transition to cefepime 2 g every 12 hours for a current renal function. Follow blood cultures are a been requested. Ongoing supportive care. The wounds were evaluated with the nurses and the high product is to the left heel the foam dressings to the reigning areas on the lower legs bilaterally, zinc cream to the posterior thigh area. To the significant isai infection beneath the breasts and the abdominal pannus the interim dry with the antifungal powder is requested. Depending on the findings of blood cultures will determine if she needs another PICC line and further outpatient intravenous antibiotic therapy. Current Visit: Yes Status: Acute Code(s): R78.81 - BACTEREMIA SNOMED Code(s): 3369980 (2) Obesity Current Visit: No Status: Acute Priority: Medium Code(s): E66.9 - OBESITY, UNSPECIFIED SNOMED Code(s): 922980714 (3) Cellulitis of both lower extremities Current Visit: No Status: Acute Code(s): L03.115 - CELLULITIS OF RIGHT LOWER LIMB; L03.116 - CELLULITIS OF LEFT LOWER LIMB SNOMED Code(s): 622659771
[2019-03-22 06:51] LABS: Glucose,Whole Blood 128 mg/dL (75-99)
--- NOTE | 2019-03-22 07:14 | HP ---
HISTORY AND PHYSICAL DATE OF SERVICE: March 21, 2019. PRESENTING COMPLAINT: Lower extremity wounds. HISTORY OF PRESENTING COMPLAINT: This is a pleasant 58-year-old patient, follows with [facility]. Chronic stable medical conditions include diabetes mellitus type 2, GERD, hypertension, hyperlipidemia, rheumatoid arthritis, peripheral neuropathy, chronic low back pain, coronary artery disease. The patient does go to the [facility] every Wednesday and follows with Dr. Acuña. The patient had a diabetic ulcer on the left lower extremity, had also had trauma to the right lower extremity. The patient's wound started to drain becoming worse and that is why she presented. The patient does have a walker but predominantly uses a wheelchair. Denies any obvious fever and chills. Appetite is fair. No change in the bowel habits. She is also complaining of enlarged right breast. Though there is no pain. It is just more swollen. REVIEW OF SYSTEMS: CONSTITUTIONAL: Tired. HEENT: None. RESPIRATORY: None. CARDIOVASCULAR: None. GASTROINTESTINAL: None. GENITOURINARY: None. MUSCULOSKELETAL: Pain in joints. DERMATOLOGICAL: As above LYMPHATICS: None. PSYCHIATRY none. NEUROLOGICAL: Peripheral neuropathy. PAST MEDICAL HISTORY: Diabetes mellitus type 2, GERD, hyperlipidemia, hypertension, myocardial infarction, rheumatoid arthritis, peripheral neuropathy, gallstones, chronic low back pain, lower extremity wounds. PAST SURGICAL HISTORY: Appendectomy, , coronary artery bypass, uterine ablation. PSYCH HISTORY: Depression. SOCIAL HISTORY: Lives at [facility]. The patient is a . Uses a walker sometimes, predominantly a wheelchair. Has home care once a week. No smoking. No alcohol. Stop drinking back in 1990 and smoked for 11 years, stopping at the age of 40, was up to 3 packs a day. FAMILY HISTORY: Stroke, diabetes, myocardial infarction, aneurysm. MEDICATIONS: Home medications: 1. Zinc oxide 20% 1 application topical b.i.d. p.r.n. 2. Potassium 20 mEq daily. 3. Omeprazole 20 mg p.o. daily. 4. Levemir 30 units subcu q.h.s. 5. NovoLog a.c. t.i.d. 6. Neurontin 300 mg q.h.s. 7. Lasix 20 mg b.i.d. 8. Lotrimin 1 application topical b.i.d. 9. Plavix 75 mg p.o. daily. 10.Coreg 12.5 p.o. b.i.d. 11.Aspirin 81 mg p.o. daily. 12.ProAir 2 puffs q.i.d. p.r.n. 13.Tylenol 650 mg q.6h p.r.n. ALLERGIES: COLLAGENASE, LATEX, POLLEN EXTRACT. PHYSICAL EXAMINATION: VITAL SIGNS: Temperature 97.4, pulse 72, respiration 17, blood pressure 137/55, pulse ox 93 percent on room air. GENERAL APPEARANCE: Well built, BMI more than 48.1. Lying in bed, awake. EYES: Pupils are equal. Conjunctivae normal. NECK: JVD not raised. Mass not palpable. HEENT: External appearance of nose and ears normal. Oral cavity normal. RESPIRATORY: Effort increased. LUNGS: Distant breath sounds. CARDIOVASCULAR: 1st and 2nd sounds normal. Some edema. ABDOMEN: Soft, nontender. Liver and spleen not palpable. PSYCHIATRY: Lying in bed, awake. Answering questions. Alert and oriented x3. Mood and affect normal. DERMATOLOGICAL: Lower extremity in a dressing with a very dry skin and fungal infection of the toes. INVESTIGATIONS: White count 6.3, hemoglobin 8.8, platelets 232, potassium 4.6, BUN 48, creatinine 1.33. The patient's BUN and creatinine on last admission was 42/1.48. ASSESSMENT: 1. Acute on chronic bilateral lower extremity wounds with venostasis ulcers the last admission growing MRSA with acute worsening. 2. Chronic kidney disease stage 3 from diabetic nephropathy and nephrosclerosis. 3. Morbid obesity BMI more than 40. 4. Diabetes mellitus type 2, chronically on insulin. 5. Gastroesophageal reflux disease. 6. Essential hypertension. 7. Hyperlipidemia. 8. Coronary artery disease, prior history of bypass. 9. Diabetic peripheral neuropathy. 10.Chronic low back pain from arthritis. 11.Chronic medical debility, patient uses a walker and a wheelchair. 12.Enlarged right breast from dependent edema. The patient does not wear any supports system, just a T-shirt. PLAN: Dr. Acuña was consulted from Infectious Disease. Home medications are resumed. Accu- Cheks will be closely followed. We will consult Dr. Laura North to see if anything else can be offered. Care was discussed with the patient. Questions were answered. Copy to [facility]. MMODL / IJN: [id number] /
[2019-03-22] MEDS: INSULIN ASPART (NovoLOG) 100 UNIT/ML VIAL SQ SCH ×4 (07:27→21:35)
[2019-03-22] MEDS: FUROSEMIDE 20 MG TAB PO SCH ×2 (10:46→17:56)
[2019-03-22] MEDS: PANTOPRAZOLE 40 MG TABLET PO SCH (10:46)
[2019-03-22] MEDS: CLOPIDOGREL 75 MG TAB PO SCH (10:46)
[2019-03-22] MEDS: POTASSIUM CHLORIDE ER 20 MEQ TAB.ER PO SCH (10:46)
[2019-03-22] MEDS: CARVEDILOL 12.5 MG TAB PO SCH ×2 (10:47→21:35)
[2019-03-22] MEDS: ASPIRIN 81 MG PO SCH (10:47)
[2019-03-22] MEDS: CEFEPIME 2 GM in SODIUM CHLORIDE 0.9% 100 ML IVPB SCH ×2 (10:47→21:35)
[2019-03-22 11:29] LABS: Glucose,Whole Blood 178 mg/dL (75-99)
[2019-03-22] MEDS: CLOTRIMAZOLE 1% CREAM 15 GM TUBE TOPICAL SCH ×2 (13:24→21:37)
[2019-03-22] MEDS: SODIUM CHLORIDE 0.9% 1,000 ML IV SCH (13:27)
[2019-03-22] MEDS: VANCOMYCIN 2,000 MG in SODIUM CHLORIDE 0.9% 500 ML 500 ML IVPB SCH (13:28)
[2019-03-22 16:35] LABS: Glucose,Whole Blood 169 mg/dL (75-99)
[2019-03-22] MEDS: ALBUTEROL NEBULIZED 2.5 MG/3 ML INHALATION PRN (17:16)
[2019-03-22 21:29] LABS: Glucose,Whole Blood 156 mg/dL (75-99)
[2019-03-22] MEDS: GABAPENTIN 300 MG CAP PO SCH (21:35)
[2019-03-22] MEDS: INSULIN DETEMIR (LEVEMIR) 100 UNIT/ML SYR SQ SCH (21:36)
--- NOTE | 2019-03-23 00:09 | PN ---
PROGRESS NOTE DATE OF SERVICE: March 22, 2019 PRESENTING COMPLAINT: Lower extremity wound. INTERVAL HISTORY: This patient presented with flare up of oozing from his lower extremity wound that she follows up at the [facility]. The patient's antibiotics being followed by Dr. Acuña. Otherwise, tolerating a diet comfortable. REVIEW OF SYSTEMS: Done for constitutional, cardiovascular, GI, pulmonary, dermatologic and relevant findings as above. CURRENT MEDICATIONS: Reviewed that include IV cefepime and vancomycin. PHYSICAL EXAMINATION: VITAL SIGNS: Temperature 98.3, pulse 79, respirations 16, blood pressure 130/65, pulse ox 95 percent. GENERAL APPEARANCE: Sitting up. Awake. EYES: Pupils equal. Conjunctivae normal. NECK: JVD not raised. Mass not palpable. RESPIRATORY: Effort increased. LUNGS: Distant breath sounds. CARDIOVASCULAR: 1st and 2nd sounds normal. Some edema. ABDOMEN: Soft, nontender. Liver and spleen not palpable. PSYCHIATRY: Alert, oriented x3. Mood and affect normal. DERMATOLOGICAL: Lower extremity in a dressing with dry feet and fungal infection of the toes. INVESTIGATIONS: Accu-Cheks noted 178, 169, 156. ASSESSMENT: 1. Acute on chronic bilateral lower extremity wounds with venous stasis ulcer, the last admission growing MRSA with acute flare-up on this admission. 2. Chronic kidney disease stage 3 from diabetic nephropathy and nephrosclerosis. 3. Morbid obesity BMI more than 40. 4. Diabetes mellitus type 2, chronically on insulin. 5. Gastroesophageal reflux disease. 6. Essential hypertension. 7. Hyperlipidemia. 8. Coronary artery disease, prior history of bypass. 9. Diabetic peripheral neuropathy. 10.Chronic low back pain from arthritis. 11.Chronic medical debility, patient uses a walker and a wheelchair. 12.Enlarged right breast from dependent edema. PLAN: Continue current medication and treatment plan. Dr. Laura North was consulted for the breast. Repeat labs in the morning. MMODL / IJN: [id number] /
[2019-03-23] MEDS: ACETAMINOPHEN TAB 325 MG TAB PO PRN ×2 (01:13→10:44)
[2019-03-23 06:43] LABS: Glucose,Whole Blood 133 mg/dL (75-99)
[2019-03-23] MEDS: CEFEPIME 2 GM in SODIUM CHLORIDE 0.9% 100 ML IVPB SCH (07:35)
[2019-03-23] MEDS: FUROSEMIDE 20 MG TAB PO SCH ×2 (07:35→17:17)
[2019-03-23] MEDS: CARVEDILOL 12.5 MG TAB PO SCH ×2 (07:35→21:46)
[2019-03-23] MEDS: PANTOPRAZOLE 40 MG TABLET PO SCH (07:35)
[2019-03-23] MEDS: CLOPIDOGREL 75 MG TAB PO SCH (07:35)
[2019-03-23] MEDS: ASPIRIN 81 MG PO SCH (07:35)
[2019-03-23] MEDS: INSULIN ASPART (NovoLOG) 100 UNIT/ML VIAL SQ SCH ×4 (07:35→21:46)
[2019-03-23] MEDS: POTASSIUM CHLORIDE ER 20 MEQ TAB.ER PO SCH (07:35)
[2019-03-23] MEDS: ALBUTEROL NEBULIZED 2.5 MG/3 ML INHALATION PRN ×2 (08:12→11:41)
[2019-03-23 09:33] LABS: Anisocytosis Slight; Basophils % (A) 1 %; Eosinophils # (A) 0.3 k/uL (0-0.7); Eosinophils % (A) 6 %; HCT 28.6 % (34.0-46.0); HGB 8.2 gm/dL (11.4-16.0); Hypochromasia Marked; Lymphocytes # (A) 0.7 k/uL (1.0-4.8); Lymphocytes % (A) 12 %; MCH 24.4 pg (25.0-35.0); MCHC 28.5 g/dL (31.0-37.0); MCV 85.6 fL (80.0-100.0); Mean Platelet Volume 7.7; Monocytes # (A) 0.4 k/uL (0-1.0); Monocytes % (A) 7 %; Neutrophils # (A) 4.2 k/uL (1.3-7.7); Neutrophils % (A) 73 %; Platelet Count 232 k/uL (150-450); RBC 3.35 m/uL (3.80-5.40); RDW 18.5 % (11.5-15.5); WBC 5.8 k/uL (3.8-10.6)
[2019-03-23 09:44] LABS: Calcium 8.3 mg/dL (8.4-10.2); Potassium 4.4 mmol/L (3.5-5.1)
[2019-03-23 11:44] LABS: Glucose,Whole Blood 137 mg/dL (75-99)
[2019-03-23] MEDS: VANCOMYCIN 2,000 MG in SODIUM CHLORIDE 0.9% 500 ML 500 ML IVPB SCH (12:43)
[2019-03-23 16:18] VITALS: BMI 48.0
[2019-03-23 16:18] LABS: Glucose,Whole Blood 126 mg/dL (75-99)
[2019-03-23] MEDS: CLOTRIMAZOLE 1% CREAM 15 GM TUBE TOPICAL SCH ×2 (17:14→21:47)
--- NOTE | 2019-03-23 18:13 | P.GSHP ---
History of Present Illness H&P Date: 03/23/19 Chief Complaint: Enlarged right breast Grecia is a 58-year-old white female who states that last week she noticed that her bladder not felt well with right breast being larger than the left breast. She states that she has not had any pain in her breasts. She states that she has swelling not only in the breast but she feels like it extends amylase side of her body. She states she did notany redness in her breast and no nipple discharge. She does not give any history of any fever or chills. She has had sores posterior calves for which she is followed in the wound clinic. She also had an ultrasound performed of her breast which revealed thickening of the skin, and findings suspicious for inflammatory breast cancer. There was no discrete lesion noted. The patient has not had a mammogram performed. This patient is known to the ID service that she has chronic bilateral lower extremity ulcerations and follows in the wound center. When she presented to the hospital she states that she noted that both of her legs have become very wet, in the emergency room her white count was 6.5. The patient was placed on Rocephin admitted to the [facility] floor. She continues to have significant amounts of serous drainage from her lower extremities. Previous wound culture from November was positive for MRSA, Proteus, actinic Enterobacter, and previous to this in August wound culture was positive for Pseudomonas and providential. She was admitted with concerns of gram-negative sepsis and infectious disease was consulted. However it was also noted that the right breast was very enlarged. Family history: Maternal Grandmother: Breast cancer Maternal Grandfather: Colon cancer Hormonal history: Menarche: 11 , she did not breast-feed, first 2030 Menopause: 49 Postoperative control pills: One month Hormones: Negative Past surgical history: 1. 2 C-sections 2. Appendectomy 3. Double cardiac bypass Medical history: 1. Myocardial infarction 2. Morbid obesity 3. Chronic leg wounds 4. Muscle weakness Social history: Patient used to smoke 3 packs per day stopped 8 years ago Alcohol: Used to drink heavily but stopped in 1988 Drugs: Negative - Constitutional Constitutional: Reports weakness - EENT Comment: Cataract Eyes: denies blurred vision, denies pain Ears: deny: tinnitus - Breasts Breasts: bilateral: as per HPI - Cardiovascular Comment: History of [place] - Respiratory Comment: Former smoker Respiratory: Denies cough, Denies 7 - Gastrointestinal Gastrointestinal: Denies abdominal pain, Denies diarrhea, Denies nausea, Denies vomiting - Genitourinary (Female) Genitourinary: Denies dysuria, Denies hematuria - Musculoskeletal Comment: Rheumatoid arthritis - Integumentary Integumentary: Reports wounds - Neurological Neurological: Reports weakness - Psychiatric Psychiatric: Denies anxiety, Denies depression - Endocrine Comment: Type 2 diabetes Endocrine: Denies fatigue, Denies weight change - Hematologic/Lymphatic Comment: plavix - Allergic/Immunologic Allergic/Immunologic: Reports as per HPI Past Medical History Past Medical History: Heart Failure, Diabetes Mellitus, GERD/Reflux, Hyperlipidemia, Hypertension, Myocardial Infarction ([place]), Osteoarthritis (OA), Rheumatoid Arthritis (RA) Additional Past Medical History / Comment(s): Chronic bilateral venous stasis ulcers, bilateral lower leg cellulitis, pt states she has bilateral wounds on her thighs as well, IDDM type II, neuropathy bilateral legs/feet, CKD stage IV, Chronic back and bilateral leg pain, bilateral cataracts, gallstones, rash on bilateral shoulders/chest and L leg. Last Myocardial Infarction Date:: 2011 History of Any Multi-Drug Resistant Organisms: ESBL, MRSA Date of last positivie culture/infection: 03/20/19 MRSA MDRO Source:: MRSA BLOOD 10/13/17 ESBL URINE Past Surgical History: Appendectomy, Section, Coronary Bypass/CABG, Heart Catheterization, Uterine Ablation Additional Past Surgical History / Comment(s): 2011 CABG 2 vessel, D&C, C- sections x 2, Past Anesthesia/Blood Transfusion Reactions: No Reported Reaction Additional Past Anesthesia/Blood Transfusion Reaction / Comment(s): clausterphobia Additional Psychological History / Comment(s): pt lives alone at [facility]. (lost her of 30 years in jun 2017). uses walker when up and wheelchair for longer distances. has care provider thru her insurance company once a week. Denies tobacco smoking or alcohol use. Medically disabled. No experience or international travel. No animals in the home Smoking Status: Former smoker - Past Family History Mother Additional Family Medical History / Comment(s): anuerysm Father Family Medical History: CVA/TIA, Diabetes Mellitus, Myocardial Infarction ([place]) Sister(s) Additional Family Medical History / Comment(s): one sister had "hole in her heart" and a kidney transplant and another sister had ms. Medications and Allergies Home Medications Medication Instructions Recorded Confirmed Type Albuterol Sulfate [Proair Hfa] 2 puff INHALATION RT-QID PRN 02/18/18 03/21/19 History Aspirin 81 mg PO DAILY chew 06/02/18 03/21/19 Rx Carvedilol [Coreg] 12.5 mg PO BID 08/17/18 03/21/19 History Clopidogrel [Plavix] 75 mg PO DAILY 08/17/18 03/21/19 History Insulin Detemir [Levemir Flextouch] 30 units SQ HS 08/17/18 03/21/19 History Furosemide [Lasix] 20 mg PO BID #60 tablet 01/03/19 03/21/19 Rx Potassium Chloride ER [K-Dur 20] 20 meq PO DAILY #30 tab 01/03/19 03/21/19 Rx Gabapentin [Neurontin] 300 mg PO HS #3 capsule 02/17/19 03/21/19 Rx Acetaminophen Tab [Tylenol] 650 mg PO Q6H PRN 02/23/19 03/21/19 History INSULIN ASPART (NovoLOG) [NovoLOG See Protocol SQ AC-TID 02/23/19 03/21/19 History (formulary)] Omeprazole 20 mg PO DAILY 02/23/19 03/21/19 History Zinc Oxide 20% Oint 1 applic TOPICAL BID PRN 02/23/19 03/21/19 History Clotrimazole Cream [Lotrimin Cream] 1 applic TOPICAL BID 10 Days #1 03/20/19 03/21/19 Rx tube Allergies Allergy/AdvReac Type Severity Reaction Status Date / Time collagenase Clostridium Allergy Unknown Verified 03/21/19 09:30 histolyticu [From Santyl] latex Allergy Rash/Hives Verified 03/21/19 15:52 pollen extracts AdvReac Mild Itching Verified 03/21/19 09:30 Surgical - Exam Vital Signs Temp Pulse Resp BP Pulse Ox 98.2 F 61 20 125/52 97 03/21/19 09:07 03/21/19 09:07 03/21/19 09:07 03/21/19 09:07 03/21/19 09:07 BMI 48.1 - General Morbid obesity - Eyes normal ocular movement - ENT no hearing loss - Neck trachea midline, no lymphadectomy - Respiratory Decreased breath sounds at bases normal expansion - Cardiovascular Rhythm: regular Heart Sounds: normal: S1, S2 - Abdomen No guarding or rebound Abdomen: soft - Integumentary Dressings in place bilateral lower extremities not removed Scar from prior cardiac surgery Mild erythema intra-abdominal frozen moisture noted under bilateral breasts - Neurologic no disoriented, no combative - Musculoskeletal Reclining in bed - Psychiatric oriented to time, oriented to person, oriented to place, speech is normal, memory intact Breast examination: Right breast: Boggy and enlarged in size over the left breast, skin changes consistent with [place] Impression No discrete dominant mass identified Shotty adenopathy right axilla Left breast: No dominant masses or nodules of concern on examination Left axilla: No adenopathy of concern Results Ultrasound reviewed with radiology of the right breast - Labs 03/23/19 09:10 03/23/19 09:10 Abnormal Lab Results - Last 24 Hours (Table) 03/22/19 03/23/19 03/23/19 Range/Units 21:28 06:41 09:10 RBC (3.80-5.40) m/uL Hgb (11.4-16.0) gm/dL Hct (34.0-46.0) % MCH (25.0-35.0) pg MCHC (31.0-37.0) g/dL RDW (11.5-15.5) % Lymphocytes # (1.0-4.8) k/uL Chloride 112 H (98-107) mmol/L BUN 40 H (7-17) mg/dL Creatinine 1.45 H (0.52-1.04) mg/dL Glucose 120 H (74-99) mg/dL POC Glucose (mg/dL) 156 H 133 H (75-99) mg/dL Calcium 8.3 L (8.4-10.2) mg/dL 03/23/19 03/23/19 03/23/19 Range/Units 09:10 11:42 16:17 RBC 3.35 L (3.80-5.40) m/uL Hgb 8.2 L (11.4-16.0) gm/dL Hct 28.6 L (34.0-46.0) % MCH 24.4 L (25.0-35.0) pg MCHC 28.5 L (31.0-37.0) g/dL RDW 18.5 H (11.5-15.5) % Lymphocytes # 0.7 L (1.0-4.8) k/uL Chloride (98-107) mmol/L BUN (7-17) mg/dL Creatinine (0.52-1.04) mg/dL Glucose (74-99) mg/dL POC Glucose (mg/dL) 137 H 126 H (75-99) mg/dL Calcium (8.4-10.2) mg/dL Microbiology - Last 24 Hours (Table) 03/21/19 11:31 Blood Culture - Preliminary Blood No Growth after 48 hours Diabetes panel 03/23/19 Range/Units 09:10 Sodium 144 (137-145) mmol/L Potassium 4.4 (3.5-5.1) mmol/L Chloride 112 H (98-107) mmol/L Carbon Dioxide 24 (22-30) mmol/L BUN 40 H (7-17) mg/dL Creatinine 1.45 H (0.52-1.04) mg/dL Glucose 120 H (74-99) mg/dL Calcium 8.3 L (8.4-10.2) mg/dL Calcium panel 03/23/19 Range/Units 09:10 Calcium 8.3 L (8.4-10.2) mg/dL Pituitary panel 03/23/19 Range/Units 09:10 Sodium 144 (137-145) mmol/L Potassium 4.4 (3.5-5.1) mmol/L Chloride 112 H (98-107) mmol/L Carbon Dioxide 24 (22-30) mmol/L BUN 40 H (7-17) mg/dL Creatinine 1.45 H (0.52-1.04) mg/dL Glucose 120 H (74-99) mg/dL Calcium 8.3 L (8.4-10.2) mg/dL Adrenal panel 03/23/19 Range/Units 09:10 Sodium 144 (137-145) mmol/L Potassium 4.4 (3.5-5.1) mmol/L Chloride 112 H (98-107) mmol/L Carbon Dioxide 24 (22-30) mmol/L BUN 40 H (7-17) mg/dL Creatinine 1.45 H (0.52-1.04) mg/dL Glucose 120 H (74-99) mg/dL Calcium 8.3 L (8.4-10.2) mg/dL Assessment and Plan Assessment: Impression: 1. 58-year-old female with chronic bilateral lower extremity ulcer ations followed in the wound center 2. Possible sepsis related to this 3. Recently noted to have enlarged right breast 4. Morbid obesity 5. Recent increased weakness 6. Bilateral cataracts 7. Type 2 diabetes 8. Status post coronary bypass graft/status post myocardial infarction Plan: 1. Rule out inflammatory breast cancer 2. Punch biopsy skin of the breast 3. Medical management of medical conditions Cc: Dr. Quinones
--- NOTE | 2019-03-23 18:15 | P.PCN ---
Date of Procedure: 03/23/19 Preoperative Diagnosis: Thickened skin right breast Postoperative Diagnosis: Same Procedure(s) Performed: Punch biopsy to rule out inflammatory breast cancer Anesthesia: local Surgeon: Delia North Pathology: other (skin lesion) Condition: stable Disposition: floor Indications for Procedure: Patient admitted with enlarged right breast and skin changes consistent with thickening and inflammation versus inflammatory breast cancer Description of Procedure: Following discussion of the procedure with the patient informed consent was obtained. The area of the breast was prepped using Betadine. 1% lidocaine was used to anesthetize the skin. A 4 mm punch biopsy was utilized to obtain a full-thickness skin biopsy. Following this a liver nitrate stick was utilized to obtain hemostasis. Sterile dressing was applied. The patient tolerated procedure in stable condition. The specimen was sent for pathology.
--- NOTE | 2019-03-23 18:44 | P.PN ---
Subjective Progress Note Date: 03/23/19 Principal diagnosis: Acute on chronic bilateral lower extremity wounds; infected 58-year-old white female who states that last week she noticed that her bladder not felt well with right breast being larger than the left breast. She states that she has not had any pain in her breasts. She states that she has swelling not only in the breast but she feels like it extends amylase side of her body. She states she did notany redness in her breast and no nipple discharge. She do es not give any history of any fever or chills. She has had sores posterior calves for which she is followed in the wound clinic. She also had an ultrasound performed of her breast which revealed thickening of the skin, and findings suspicious for inflammatory breast cancer. There was no discrete lesion noted. The patient has not had a mammogram performed. This patient is known to the ID service that she has chronic bilateral lower extremity ulcerations and follows in the wound center. When she presented to the hospital she states that she noted that both of her legs have become very wet, in the emergency room her white count was 6.5. The patient was placed on Rocephin admitted to the [facility] floor. She continues to have significant amounts of serous drainage from her lower extremities. Previous wound culture from November was positive for MRSA, Proteus, actinic Enterobacter, and previous to this in August wound culture was positive for Pseudomonas and providential. She was admitted with concerns of gram-negative sepsis and infectious disease was consulted. However it was also noted that the right breast was very enlarged. 03/23/2019 Patient is seen and evaluated in room at bedside; vital signs remained stable with temperature of 97.6, pulse 73, respiration 18 and blood pressure of 100/59 Lab review shows a CBC with a white blood count of 5.8, hemoglobin 8.2 and platelet count of 232; chemical profile shows sodium 144, potassium 4.4 with B UN of 40 creatinine 1.45 Patient remains on IV antibiotics with ID on case Patient is scheduled to undergo punch biopsy of right breast skin due to enlarged right breast to rule out inflammatory breast cancer Objective - Vital Signs Vital signs: Vital Signs Temp 97.6 F 03/23/19 13:32 Pulse 73 03/23/19 13:32 Resp 19 03/23/19 08:00 BP 100/59 03/23/19 13:32 Pulse Ox 95 03/23/19 13:32 Intake & Output 03/22/19 03/23/19 03/23/19 18:59 06:59 18:59 Intake Total 400 Output Total 400 Balance -400 400 Intake: Oral 400 Output: Urine 400 Other: Voiding Method Toilet Bedpan Bedpan Diaper Diaper Diaper # Voids 1 1 # Bowel Movements 1 - Exam - Constitutional General appearance: Present: average body habitus, cooperative, no acute distress Neck: Present: normal ROM. Absent: lymphadenopathy, rigidity, thyromegaly Carotids: negative: bruit present Thyroid: bilateral: normal size, negative: enlarged, noduleRespiratory: bilateral: CTA, negative: rales, rhonchi, wheezing - Cardiovascular Rhythm: regular Heart sounds: normal: S1, S2 Abnormal Heart Sounds: Absent: systolic murmur, diastolic murmur General gastrointestinal: Present: normal bowel sounds, soft. Absent: distended, organomegaly, tenderness Integumentary: Present: normal turgor. Absent: jaundiced, rash, ulcer - Neurologic Neurologic: Present: CNII-XII intact. Absent: focal deficits - Musculoskeletal Musculoskeletal: Present: gait normal, strength equal bilaterally - Labs CBC & Chem 7: 03/23/19 09:10 03/23/19 09:10 Labs: Abnormal Lab Results - Last 24 Hours (Table) 03/22/19 03/22/19 03/23/19 Range/Units 16:33 21:28 06:41 RBC (3.80-5.40) m/uL Hgb (11.4-16.0) gm/dL Hct (34.0-46.0) % MCH (25.0-35.0) pg MCHC (31.0-37.0) g/dL RDW (11.5-15.5) % Lymphocytes # (1.0-4.8) k/uL Chloride (98-107) mmol/L BUN (7-17) mg/dL Creatinine (0.52-1.04) mg/dL Glucose (74-99) mg/dL POC Glucose (mg/dL) 169 H 156 H 133 H (75-99) mg/dL Calcium (8.4-10.2) mg/dL 03/23/19 03/23/19 03/23/19 Range/Units 09:10 09:10 11:42 RBC 3.35 L (3.80-5.40) m/uL Hgb 8.2 L (11.4-16.0) gm/dL Hct 28.6 L (34.0-46.0) % MCH 24.4 L (25.0-35.0) pg MCHC 28.5 L (31.0-37.0) g/dL RDW 18.5 H (11.5-15.5) % Lymphocytes # 0.7 L (1.0-4.8) k/uL Chloride 112 H (98-107) mmol/L BUN 40 H (7-17) mg/dL Creatinine 1.45 H (0.52-1.04) mg/dL Glucose 120 H (74-99) mg/dL POC Glucose (mg/dL) 137 H (75-99) mg/dL Calcium 8.3 L (8.4-10.2) mg/dL Microbiology - Last 24 Hours (Table) 03/21/19 11:31 Blood Culture - Preliminary Blood No Growth after 48 hours Assessment and Plan Assessment: 1. Acute on chronic bilateral lower extremity ulcers 2. Chronic kidney disease stage III 3. Diabetes mellitus type 2 4. Hypertension 5. Hyperlipidemia 6. Morbid obesity 7. Enlarged right breast; for punch biopsy CODE STATUS; full code Time with Patient: Greater than 30
[2019-03-23 20:55] LABS: Glucose,Whole Blood 149 mg/dL (75-99)
[2019-03-23] MEDS: GABAPENTIN 300 MG CAP PO SCH (21:46)
[2019-03-23] MEDS: INSULIN DETEMIR (LEVEMIR) 100 UNIT/ML SYR SQ SCH (21:46)
[2019-03-23] MEDS: SODIUM CHLORIDE 0.9% 1,000 ML IV SCH (21:47)
[2019-03-24 07:19] LABS: Glucose,Whole Blood 120 mg/dL (75-99)
[2019-03-24] MEDS: INSULIN ASPART (NovoLOG) 100 UNIT/ML VIAL SQ SCH ×4 (07:30→20:46)
[2019-03-24 08:48] LABS: Anisocytosis Slight; Basophils % (A) 1 %; Eosinophils # (A) 0.4 k/uL (0-0.7); Eosinophils % (A) 7 %; HCT 31.4 % (34.0-46.0); HGB 8.9 gm/dL (11.4-16.0); Hypochromasia Marked; Lymphocytes # (A) 0.7 k/uL (1.0-4.8); Lymphocytes % (A) 11 %; MCH 24.6 pg (25.0-35.0); MCHC 28.4 g/dL (31.0-37.0); MCV 86.5 fL (80.0-100.0); Mean Platelet Volume 7.5; Monocytes # (A) 0.5 k/uL (0-1.0); Monocytes % (A) 8 %; Neutrophils # (A) 4.2 k/uL (1.3-7.7); Neutrophils % (A) 71 %; Platelet Count 207 k/uL (150-450); RBC 3.63 m/uL (3.80-5.40); WBC 5.9 k/uL (3.8-10.6)
[2019-03-24 08:58] LABS: Calcium 8.3 mg/dL (8.4-10.2); Potassium 4.6 mmol/L (3.5-5.1)
[2019-03-24] MEDS: FUROSEMIDE 20 MG TAB PO SCH ×2 (09:03→17:15)
[2019-03-24] MEDS: PANTOPRAZOLE 40 MG TABLET PO SCH (09:03)
[2019-03-24] MEDS: ASPIRIN 81 MG PO SCH (09:03)
[2019-03-24] MEDS: CLOPIDOGREL 75 MG TAB PO SCH (09:03)
[2019-03-24] MEDS: CEFEPIME 2 GM in SODIUM CHLORIDE 0.9% 100 ML IVPB SCH (09:04)
[2019-03-24] MEDS: POTASSIUM CHLORIDE ER 20 MEQ TAB.ER PO SCH (09:04)
[2019-03-24] MEDS: CARVEDILOL 12.5 MG TAB PO SCH ×2 (10:46→20:46)
[2019-03-24 11:39] LABS: Glucose,Whole Blood 159 mg/dL (75-99)
[2019-03-24] MEDS: SODIUM CHLORIDE 0.9% 1,000 ML IV SCH ×2 (12:15→12:22)
[2019-03-24] MEDS: ACETAMINOPHEN TAB 325 MG TAB PO PRN (12:25)
[2019-03-24] MEDS: CLOTRIMAZOLE 1% CREAM 15 GM TUBE TOPICAL SCH ×2 (12:34→21:00)
[2019-03-24] MEDS: VANCOMYCIN 2,000 MG in SODIUM CHLORIDE 0.9% 500 ML 500 ML IVPB SCH (16:41)
[2019-03-24 17:23] LABS: Glucose,Whole Blood 165 mg/dL (75-99)
--- NOTE | 2019-03-24 18:42 | P.PN ---
Subjective Progress Note Date: 03/24/19 Principal diagnosis: Acute on chronic bilateral lower extremity wounds; infected 58-year-old white female who states that last week she noticed that her bladder not felt well with right breast being larger than the left breast. She states that she has not had any pain in her breasts. She states that she has swelling not only in the breast but she feels like it extends amylase side of her body. She states she did notany redness in her breast and no nipple discharge. She do es not give any history of any fever or chills. She has had sores posterior calves for which she is followed in the wound clinic. She also had an ultrasound performed of her breast which revealed thickening of the skin, and findings suspicious for inflammatory breast cancer. There was no discrete lesion noted. The patient has not had a mammogram performed. This patient is known to the ID service that she has chronic bilateral lower extremity ulcerations and follows in the wound center. When she presented to the hospital she states that she noted that both of her legs have become very wet, in the emergency room her white count was 6.5. The patient was placed on Rocephin admitted to the [facility] floor. She continues to have significant amounts of serous drainage from her lower extremities. Previous wound culture from November was positive for MRSA, Proteus, actinic Enterobacter, and previous to this in August wound culture was positive for Pseudomonas and providential. She was admitted with concerns of gram-negative sepsis and infectious disease was consulted. However it was also noted that the right breast was very enlarged. 03/23/2019 Patient is seen and evaluated in room at bedside; vital signs remained stable with temperature of 97.6, pulse 73, respiration 18 and blood pressure of 100/59 Lab review shows a CBC with a white blood count of 5.8, hemoglobin 8.2 and platelet count of 232; chemical profile shows sodium 144, potassium 4.4 with B UN of 40 creatinine 1.45 Patient remains on IV antibiotics with ID on case Patient is scheduled to undergo punch biopsy of right breast skin due to enlarged right breast to rule out inflammatory breast cancer 03/24/2019 Patient is seen for follow-up in room with family members at bedside; patient did have breast biopsy done; consent about drainage from biopsy site Vital signs are reviewed and remained stable Lab review done showing CBC with white blood count of 5.9, hemoglobin 8.9 and platelet count of 207; chemical profile sodium 144, potassium 4.6, BUN 35 and creatinine of 1.38 We will continue with current IV antibiotic therapy to further recommendations from ID Objective - Vital Signs Vital signs: Vital Signs Temp 97.8 F 03/24/19 07:00 Pulse 54 L 03/24/19 07:00 Resp 16 03/24/19 07:00 BP 126/78 03/24/19 07:00 Pulse Ox 97 03/24/19 07:00 Intake & Output 03/23/19 03/24/19 03/24/19 18:59 06:59 18:59 Intake Total 640 160 Output Total 1 Balance 640 159 Weight 127.006 kg Intake: Intake, IV Titration 240 160 Amount Cefepime 2 gm In Sodium 100 Chloride 0.9% 100 ml @ 200 mls/hr IVPB Q24HR [facility] Rx#:[id number] Sodium Chloride 0.9% 1, 140 160 000 ml @ 20 mls/hr IV . Q24H [facility]IE Rx#:[id number] Oral 400 Output: Urine/Stool Mix 1 Other: Voiding Method Bedpan Bedpan Diaper # Voids 2 - Exam - Constitutional General appearance: Present: average body habitus, cooperative, no acute distress Neck: Present: normal ROM. Absent: lymphadenopathy, rigidity, thyromegaly Carotids: negative: bruit present Thyroid: bilateral: normal size, negative: enlarged, noduleRespiratory: bilateral: CTA, negative: rales, rhonchi, wheezing - Cardiovascular Rhythm: regular Heart sounds: normal: S1, S2 Abnormal Heart Sounds: Absent: systolic murmur, diastolic murmur General gastrointestinal: Present: normal bowel sounds, soft. Absent: distended, organomegaly, tenderness Integumentary: Present: normal turgor. Absent: jaundiced, rash, ulcer - Neurologic Neurologic: Present: CNII-XII intact. Absent: focal deficits - Musculoskeletal Musculoskeletal: Present: gait normal, strength equal bilaterally - Labs CBC & Chem 7: 03/24/19 07:57 03/24/19 07:57 Labs: Abnormal Lab Results - Last 24 Hours (Table) 03/23/19 03/23/19 03/24/19 Range/Units 16:17 20:45 07:17 RBC (3.80-5.40) m/uL Hgb (11.4-16.0) gm/dL Hct (34.0-46.0) % MCH (25.0-35.0) pg MCHC (31.0-37.0) g/dL RDW (11.5-15.5) % Lymphocytes # (1.0-4.8) k/uL Chloride (98-107) mmol/L BUN (7-17) mg/dL Creatinine (0.52-1.04) mg/dL Glucose (74-99) mg/dL POC Glucose (mg/dL) 126 H 149 H 120 H (75-99) mg/dL Calcium (8.4-10.2) mg/dL 03/24/19 03/24/19 03/24/19 Range/Units 07:57 07:57 11:36 RBC 3.63 L (3.80-5.40) m/uL Hgb 8.9 L (11.4-16.0) gm/dL Hct 31.4 L (34.0-46.0) % MCH 24.6 L (25.0-35.0) pg MCHC 28.4 L (31.0-37.0) g/dL RDW 18.0 H (11.5-15.5) % Lymphocytes # 0.7 L (1.0-4.8) k/uL Chloride 112 H (98-107) mmol/L BUN 35 H (7-17) mg/dL Creatinine 1.38 H (0.52-1.04) mg/dL Glucose 116 H (74-99) mg/dL POC Glucose (mg/dL) 159 H (75-99) mg/dL Calcium 8.3 L (8.4-10.2) mg/dL Microbiology - Last 24 Hours (Table) 03/21/19 11:31 Blood Culture - Preliminary Blood No Growth after 48 hours Assessment and Plan Assessment: 1. Acute on chronic bilateral lower extremity ulcers 2. Chronic kidney disease stage III 3. Diabetes mellitus type 2 4. Hypertension 5. Hyperlipidemia 6. Morbid obesity 7. Enlarged right breast; for punch biopsy CODE STATUS; full code Time with Patient: Greater than 30
[2019-03-24 20:14] LABS: Glucose,Whole Blood 209 mg/dL (75-99)
[2019-03-24] MEDS: GABAPENTIN 300 MG CAP PO SCH (20:46)
[2019-03-24] MEDS: INSULIN DETEMIR (LEVEMIR) 100 UNIT/ML SYR SQ SCH (21:01)
--- NOTE | 2019-03-25 01:19 | P.PN ---
Subjective Progress Note Date: 03/24/19 This is a 58-year-old female well known to ID service as she has chronic bilateral lower extremity ulcerations and [facility] Her last point it was last Wednesday. She states she was doing fine following that but knows she needs to keep her legs elevated. On Wednesday she found that her legs were sopping wet. On Wednesday she was too weak to get out of bed and she slept until 3p.m. She called her caregiver and she was still too weak to get up. She had increasing pain to the right heel and also chills. She came into [facility] emergency center for evaluation. She was found to be afebrile, white count 6.5, lactic acid 1.0. Creatinine was 1.53 w hich appears to be chronic. Blood culture was obtained. Patient was placed on Rocephin and [facility]. Patient continues to have significant amount of serous and in some areas serosanguineous drainage from her lower extremities. Previous wound culture from November of this year is positive for MRSA, Proteus mirabilis, Acinetobacter and previous to this and August wound culture was Pseudomonas aeruginosa and Providencia rettgeri. Eventually improved and was discharged home. Now short while later she is again ill with increasing lower extremity edema feeling poorly having fever and malaise and constantly was directed back to hospital. She's now been admitted with concerns to gram-negative sepsis the infectious diseases consultation was requested. Objective - Vital Signs Vital signs: Vital Signs Temp 97.7 F 03/24/19 19:09 Pulse 59 L 03/24/19 19:09 Resp 18 03/24/19 19:09 BP 137/67 03/24/19 19:09 Pulse Ox 94 L 03/24/19 19:09 Intake & Output 03/24/19 03/24/19 03/25/19 06:59 18:59 06:59 Intake Total 160 Output Total 1 Balance 159 Intake: Intake, IV Titration 160 Amount Sodium Chloride 0.9% 1, 160 000 ml @ 20 mls/hr IV . Q24H [facility]IE Rx#:[id number] Output: Urine/Stool Mix 1 Other: Voiding Method Bedpan # Voids 2 1 1 - Exam Gen: This is a morbidly obese 58-year-old female. Patient is resting in bed with head of the bed of appears to be comfortable and in no acute distress. HEENT: Head is atraumatic, normocephalic. Pupils equal, round. Sclerae is anicteric. Conjunctiva pink. Mucous members of the mouth are moist. Patient is edentulous. No thrush noted. NECK: Supple. No JVD. No lymphadenopathy. No thyromegaly. LUNGS: Diminished. No wheezes or rhonchi. No intercostal retractions. HEART: Regular rate and rhythm. No murmur. ABDOMEN: Morbidly obese. Soft. Bowel sounds are present. No masses. No tenderness. Mild erythema under abdominal folds and moisture noted under bilateral breasts. EXTREMITIES: 2+ bilateral pedal edema. Large dressings in place of bilateral lower extremities was not removed for evaluation. Significant serous and in some areas serosanguineous drainage. Please evincing photography for the multiple ulcerations that include bilateral proximal posterior thighs, bilateral lower extremities in the left heel NEUROLOGICAL: Patient is awake, alert and oriented x3. - Labs CBC & Chem 7: 03/24/19 07:57 03/24/19 07:57 Labs: Abnormal Lab Results - Last 24 Hours (Table) 03/24/19 03/24/19 03/24/19 Range/Units 07:17 07:57 07:57 RBC 3.63 L (3.80-5.40) m/uL Hgb 8.9 L (11.4-16.0) gm/dL Hct 31.4 L (34.0-46.0) % MCH 24.6 L (25.0-35.0) pg MCHC 28.4 L (31.0-37.0) g/dL RDW 18.0 H (11.5-15.5) % Lymphocytes # 0.7 L (1.0-4.8) k/uL Chloride 112 H (98-107) mmol/L BUN 35 H (7-17) mg/dL Creatinine 1.38 H (0.52-1.04) mg/dL Glucose 116 H (74-99) mg/dL POC Glucose (mg/dL) 120 H (75-99) mg/dL Calcium 8.3 L (8.4-10.2) mg/dL 03/24/19 03/24/19 03/24/19 Range/Units 11:36 17:21 20:11 RBC (3.80-5.40) m/uL Hgb (11.4-16.0) gm/dL Hct (34.0-46.0) % MCH (25.0-35.0) pg MCHC (31.0-37.0) g/dL RDW (11.5-15.5) % Lymphocytes # (1.0-4.8) k/uL Chloride (98-107) mmol/L BUN (7-17) mg/dL Creatinine (0.52-1.04) mg/dL Glucose (74-99) mg/dL POC Glucose (mg/dL) 159 H 165 H 209 H (75-99) mg/dL Calcium (8.4-10.2) mg/dL Microbiology - Last 24 Hours (Table) 03/21/19 11:31 Blood Culture - Preliminary Blood No Growth after 72 hours Laboratory Results WBC 5.9 k/uL (3.8-10.6) 03/24/19 07:57 RBC 3.63 m/uL (3.80-5.40) L 03/24/19 07:57 Hgb 8.9 gm/dL (11.4-16.0) L 03/24/19 07:57 Hct 31.4 % (34.0-46.0) L 03/24/19 07:57 MCV 86.5 fL (80.0-100.0) 03/24/19 07:57 MCH 24.6 pg (25.0-35.0) L 03/24/19 07:57 MCHC 28.4 g/dL (31.0-37.0) L 03/24/19 07:57 RDW 18.0 % (11.5-15.5) H 03/24/19 07:57 Plt Count 207 k/uL (150-450) 03/24/19 07:57 Neutrophils % 71 % 03/24/19 07:57 Lymphocytes % 11 % 03/24/19 07:57 Monocytes % 8 % 03/24/19 07:57 Eosinophils % 7 % 03/24/19 07:57 Basophils % 1 % 03/24/19 07:57 Neutrophils # 4.2 k/uL (1.3-7.7) 03/24/19 07:57 Lymphocytes # 0.7 k/uL (1.0-4.8) L 03/24/19 07:57 Monocytes # 0.5 k/uL (0-1.0) 03/24/19 07:57 Eosinophils # 0.4 k/uL (0-0.7) 03/24/19 07:57 Basophils # 0.0 k/uL (0-0.2) 03/24/19 07:57 Hypochromasia Marked 03/24/19 07:57 Anisocytosis Slight 03/24/19 07:57 Sodium 144 mmol/L (137-145) 03/24/19 07:57 Potassium 4.6 mmol/L (3.5-5.1) 03/24/19 07:57 Chloride 112 mmol/L (98-107) H 03/24/19 07:57 Carbon Dioxide 24 mmol/L (22-30) 03/24/19 07:57 Anion Gap 8 mmol/L 03/24/19 07:57 BUN 35 mg/dL (7-17) H 03/24/19 07:57 Creatinine 1.38 mg/dL (0.52-1.04) H 03/24/19 07:57 Est GFR (CKD-EPI)AfAm 48 (>60 ml/min/1.73 sqM) 03/24/19 07:57 Est GFR (CKD-EPI)NonAf 42 (>60 ml/min/1.73 sqM) 03/24/19 07:57 Glucose 116 mg/dL (74-99) H 03/24/19 07:57 POC Glucose (mg/dL) 209 mg/dL (75-99) H 03/24/19 20:11 POC Glu [employer] AMELIE Romain Fowler 03/24/19 20:11 Plasma Lactic Acid Sylvester 1.0 mmol/L (0.7-2.0) 03/21/19 11:31 Calcium 8.3 mg/dL (8.4-10.2) L 03/24/19 07:57 Total Bilirubin 1.2 mg/dL (0.2-1.3) 03/21/19 11:31 AST 16 U/L (14-36) 03/21/19 11:31 ALT 13 U/L (9-52) 03/21/19 11:31 Alkaline Phosphatase 130 U/L (38-126) H 03/21/19 11:31 Total Protein 6.7 g/dL (6.3-8.2) 03/21/19 11:31 Albumin 3.6 g/dL (3.5-5.0) 03/21/19 11:31 Microbiology 03/21/19 11:31 Blood Blood Culture - Preliminary No Growth after 72 hours Assessment and Plan (1) Bacteremia Narrative/Plan: 58-year-old woman who has super obesity lives in a senior apartment complex. Has a history of being recently A care facility and discharge back to her home setting with home care. She rapidly has worsened and has developed worsening ulcerations of the bilateral lower extremities despite curing the [facility]. Just became quite weak and felt quite poorly constantly she presents the emergency center and others evidence of bacteremia which is resulted in her current admission. Rigidity laboratory reported gram-positive cocci in chains however they never now corrected this to gram-negative bacilli. Antibiotic therapy is transition to cefepime 2 g every 12 hours for a current renal function. Follow blood cult ures are a been requested. Ongoing supportive care. The wounds were evaluated with the nurses and the high product is to the left heel the foam dressings to the reigning areas on the lower legs bilaterally, zinc cream to the posterior thigh area. To the significant isai infection beneath the breasts and the abdominal pannus the interim dry with the antifungal powder is requested. Depending on the findings of blood cultures will determine if she needs another PICC line and further outpatient intravenous antibiotic therapy. 03/24/2019 patient is doing somewhat better. She's having no further fever. Continues to have her difficulties with her breast. The biopsy has been performed. This of the blood cultures polymicrobial and is indicative of contaminated culture. Follow blood culture is negative and since there was no antibiotic therapy directed against the pathogens layer resolution indicates the contamination. Of note the 2 cultures that were obtained are technically 1 cul tures are drawn at the same moment at the time of admission. The breast biopsy has been performed and will help determine the course of antibiotic therapy at discharge. We'll not require intravenous antibiotic therapy. Current Visit: Yes Status: Acute Code(s): R78.81 - BACTEREMIA SNOMED Code(s): 3277877 (2) Obesity Current Visit: No Status: Acute Priority: Medium Code(s): E66.9 - OBESITY, UNSPECIFIED SNOMED Code(s): 393496677 (3) Cellulitis of both lower extremities Current Visit: No Status: Acute Code(s): L03.115 - CELLULITIS OF RIGHT LOWER LIMB; L03.116 - CELLULITIS OF LEFT LOWER LIMB SNOMED Code(s): 784590565
[2019-03-25 07:15] LABS: Glucose,Whole Blood 122 mg/dL (75-99)
[2019-03-25 08:10] LABS: Anisocytosis Slight; Basophils % (A) 1 %; Eosinophils # (A) 0.4 k/uL (0-0.7); Eosinophils % (A) 6 %; HCT 29.6 % (34.0-46.0); HGB 8.5 gm/dL (11.4-16.0); Hypochromasia Marked; Lymphocytes # (A) 0.6 k/uL (1.0-4.8); Lymphocytes % (A) 10 %; MCH 24.5 pg (25.0-35.0); MCHC 28.7 g/dL (31.0-37.0); MCV 85.3 fL (80.0-100.0); Mean Platelet Volume 7.7; Monocytes # (A) 0.4 k/uL (0-1.0); Monocytes % (A) 7 %; Neutrophils # (A) 4.6 k/uL (1.3-7.7); Neutrophils % (A) 74 %; Platelet Count 218 k/uL (150-450); RBC 3.47 m/uL (3.80-5.40); RDW 18.5 % (11.5-15.5); WBC 6.3 k/uL (3.8-10.6)
[2019-03-25 08:30] LABS: Calcium 8.3 mg/dL (8.4-10.2); Potassium 4.7 mmol/L (3.5-5.1)
[2019-03-25] MEDS: INSULIN ASPART (NovoLOG) 100 UNIT/ML VIAL SQ SCH ×4 (08:33→21:00)
[2019-03-25] MEDS: CLOPIDOGREL 75 MG TAB PO SCH (09:09)
[2019-03-25] MEDS: POTASSIUM CHLORIDE ER 20 MEQ TAB.ER PO SCH (09:09)
[2019-03-25] MEDS: CEFEPIME 2 GM in SODIUM CHLORIDE 0.9% 100 ML IVPB SCH (09:09)
[2019-03-25] MEDS: ASPIRIN 81 MG PO SCH (09:09)
[2019-03-25] MEDS: CARVEDILOL 12.5 MG TAB PO SCH ×2 (09:09→21:00)
[2019-03-25] MEDS: PANTOPRAZOLE 40 MG TABLET PO SCH (09:09)
[2019-03-25] MEDS: FUROSEMIDE 20 MG TAB PO SCH ×2 (09:09→16:35)
[2019-03-25] MEDS: CLOTRIMAZOLE 1% CREAM 15 GM TUBE TOPICAL SCH ×2 (09:15→21:00)
[2019-03-25] MEDS: ACETAMINOPHEN TAB 325 MG TAB PO PRN (11:18)
[2019-03-25 11:34] LABS: Glucose,Whole Blood 150 mg/dL (75-99)
[2019-03-25] MEDS ORDERED: VANCOMYCIN TROUGH DUE 1 EACH MISC MISCELLANE ONE (12:00)
[2019-03-25 16:55] LABS: Glucose,Whole Blood 130 mg/dL (75-99)
--- NOTE | 2019-03-25 17:13 | P.PN ---
Subjective Progress Note Date: 03/25/19 Principal diagnosis: Acute on chronic bilateral lower extremity wounds; infected 58-year-old white female who states that last week she noticed that her bladder not felt well with right breast being larger than the left breast. She states that she has not had any pain in her breasts. She states that she has swelling not only in the breast but she feels like it extends amylase side of her body. She states she did notany redness in her breast and no nipple discharge. She do es not give any history of any fever or chills. She has had sores posterior calves for which she is followed in the wound clinic. She also had an ultrasound performed of her breast which revealed thickening of the skin, and findings suspicious for inflammatory breast cancer. There was no discrete lesion noted. The patient has not had a mammogram performed. This patient is known to the ID service that she has chronic bilateral lower extremity ulcerations and follows in the wound center. When she presented to the hospital she states that she noted that both of her legs have become very wet, in the emergency room her white count was 6.5. The patient was placed on Rocephin admitted to the [facility] floor. She continues to have significant amounts of serous drainage from her lower extremities. Previous wound culture from November was positive for MRSA, Proteus, actinic Enterobacter, and previous to this in August wound culture was positive for Pseudomonas and providential. She was admitted with concerns of gram-negative sepsis and infectious disease was consulted. However it was also noted that the right breast was very enlarged. 03/23/2019 Patient is seen and evaluated in room at bedside; vital signs remained stable with temperature of 97.6, pulse 73, respiration 18 and blood pressure of 100/59 Lab review shows a CBC with a white blood count of 5.8, hemoglobin 8.2 and platelet count of 232; chemical profile shows sodium 144, potassium 4.4 with B UN of 40 creatinine 1.45 Patient remains on IV antibiotics with ID on case Patient is scheduled to undergo punch biopsy of right breast skin due to enlarged right breast to rule out inflammatory breast cancer 03/24/2019 Patient is seen for follow-up in room with family members at bedside; patient did have breast biopsy done; consent about drainage from biopsy site Vital signs are reviewed and remained stable Lab review done showing CBC with white blood count of 5.9, hemoglobin 8.9 and platelet count of 207; chemical profile sodium 144, potassium 4.6, BUN 35 and creatinine of 1.38 We will continue with current IV antibiotic therapy to further recommendations from ID 03/25/2019 Patient is seen and evaluated for follow-up at bedside; sleepy but easily arousable Vital signs remained stable with a temperature of 98, pulse 90, respirations 16 and blood pressure 112/64 lab review shows a white blood count of 6.3, hemoglobin 8.5 and chemical profile with sodium 145 potassium 4.7 BUN 36 creatinine 1.29 ID following for mastoiditis and managing antibiotics Objective - Vital Signs Vital signs: Vital Signs Temp 98.6 F 03/25/19 08:00 Pulse 61 03/25/19 08:45 Resp 18 03/25/19 08:45 BP 120/69 03/25/19 11:29 Pulse Ox 96 03/25/19 08:00 Intake & Output 03/24/19 03/25/19 03/25/19 18:59 06:59 18:59 Intake Total 440 180 Balance 440 180 Intake: Intake, IV Titration 200 Amount Sodium Chloride 0.9% 1, 200 000 ml @ 20 mls/hr IV . Q24H [facility] Rx#:[id number] Oral 240 180 Other: Voiding Method Bedpan # Voids 1 2 - Exam - Constitutional General appearance: Present: average body habitus, cooperative, no acute distress Neck: Present: normal ROM. Absent: lymphadenopathy, rigidity, thyromegaly Carotids: negative: bruit present Thyroid: bilateral: normal size, negative: enlarged, noduleRespiratory: bilateral: CTA, negative: rales, rhonchi, wheezing - Cardiovascular Rhythm: regular Heart sounds: normal: S1, S2 Abnormal Heart Sounds: Absent: systolic murmur, diastolic murmur General gastrointestinal: Present: normal bowel sounds, soft. Absent: dist ended, organomegaly, tenderness Integumentary: Present: normal turgor. Absent: jaundiced, rash, ulcer - Neurologic Neurologic: Present: CNII-XII intact. Absent: focal deficits - Musculoskeletal Musculoskeletal: Present: gait normal, strength equal bilaterally - Labs CBC & Chem 7: 03/25/19 07:36 03/25/19 07:36 Labs: Abnormal Lab Results - Last 24 Hours (Table) 03/24/19 03/24/19 03/25/19 Range/Units 17:21 20:11 07:12 RBC (3.80-5.40) m/uL Hgb (11.4-16.0) gm/dL Hct (34.0-46.0) % MCH (25.0-35.0) pg MCHC (31.0-37.0) g/dL RDW (11.5-15.5) % Lymphocytes # (1.0-4.8) k/uL Chloride (98-107) mmol/L BUN (7-17) mg/dL Creatinine (0.52-1.04) mg/dL Glucose (74-99) mg/dL POC Glucose (mg/dL) 165 H 209 H 122 H (75-99) mg/dL Calcium (8.4-10.2) mg/dL 03/25/19 03/25/19 03/25/19 Range/Units 07:36 07:36 11:33 RBC 3.47 L (3.80-5.40) m/uL Hgb 8.5 L (11.4-16.0) gm/dL Hct 29.6 L (34.0-46.0) % MCH 24.5 L (25.0-35.0) pg MCHC 28.7 L (31.0-37.0) g/dL RDW 18.5 H (11.5-15.5) % Lymphocytes # 0.6 L (1.0-4.8) k/uL Chloride 113 H (98-107) mmol/L BUN 36 H (7-17) mg/dL Creatinine 1.29 H (0.52-1.04) mg/dL Glucose 109 H (74-99) mg/dL POC Glucose (mg/dL) 150 H (75-99) mg/dL Calcium 8.3 L (8.4-10.2) mg/dL Microbiology - Last 24 Hours (Table) 03/21/19 11:31 Blood Culture - Preliminary Blood No Growth after 72 hours Assessment and Plan Assessment: 1. Acute on chronic bilateral lower extremity ulcers 2. Chronic kidney disease stage III 3. Diabetes mellitus type 2 4. Hypertension 5. Hyperlipidemia 6. Morbid obesity 7. Enlarged right breast; for punch biopsy CODE STATUS; full code Time with Patient: Greater than 30
[2019-03-25] MEDS: SODIUM CHLORIDE 0.9% 1,000 ML IV SCH (18:42)
[2019-03-25 20:55] LABS: Glucose,Whole Blood 203 mg/dL (75-99)
[2019-03-25] MEDS: GABAPENTIN 300 MG CAP PO SCH (21:00)
[2019-03-25] MEDS: INSULIN DETEMIR (LEVEMIR) 100 UNIT/ML SYR SQ SCH (21:00)
[2019-03-26] MEDS: ACETAMINOPHEN TAB 325 MG TAB PO PRN (01:08)
[2019-03-26] MEDS ORDERED: VANCOMYCIN 2,000 MG in SODIUM CHLORIDE 0.9% 500 ML 500 ML IVPB SCH (05:00)
[2019-03-26 07:07] LABS: Glucose,Whole Blood 133 mg/dL (75-99)
[2019-03-26 07:14] LABS: Anisocytosis Slight; Basophils % (A) 0 %; Eosinophils # (A) 0.4 k/uL (0-0.7); Eosinophils % (A) 6 %; HCT 30.6 % (34.0-46.0); HGB 8.7 gm/dL (11.4-16.0); Hypochromasia Marked; Lymphocytes # (A) 0.7 k/uL (1.0-4.8); Lymphocytes % (A) 12 %; MCH 24.3 pg (25.0-35.0); MCHC 28.5 g/dL (31.0-37.0); MCV 85.3 fL (80.0-100.0); Mean Platelet Volume 7.2; Monocytes # (A) 0.4 k/uL (0-1.0); Monocytes % (A) 7 %; Neutrophils # (A) 4.2 k/uL (1.3-7.7); Neutrophils % (A) 72 %; Platelet Count 209 k/uL (150-450); RBC 3.58 m/uL (3.80-5.40); RDW 18.4 % (11.5-15.5); WBC 5.8 k/uL (3.8-10.6)
[2019-03-26 07:29] LABS: Calcium 8.3 mg/dL (8.4-10.2); Potassium 4.7 mmol/L (3.5-5.1)
[2019-03-26] MEDS: CEFEPIME 2 GM in SODIUM CHLORIDE 0.9% 100 ML IVPB SCH (07:49)
[2019-03-26] MEDS: INSULIN ASPART (NovoLOG) 100 UNIT/ML VIAL SQ SCH ×4 (07:49→21:07)
[2019-03-26] MEDS: CLOTRIMAZOLE 1% CREAM 15 GM TUBE TOPICAL SCH ×2 (07:50→21:07)
[2019-03-26] MEDS: ASPIRIN 81 MG PO SCH (07:50)
[2019-03-26] MEDS: POTASSIUM CHLORIDE ER 20 MEQ TAB.ER PO SCH (07:50)
[2019-03-26] MEDS: CLOPIDOGREL 75 MG TAB PO SCH (07:50)
[2019-03-26] MEDS: FUROSEMIDE 20 MG TAB PO SCH ×2 (07:50→15:25)
[2019-03-26] MEDS: CARVEDILOL 12.5 MG TAB PO SCH ×2 (07:50→21:07)
[2019-03-26] MEDS: PANTOPRAZOLE 40 MG TABLET PO SCH (07:50)
[2019-03-26] MEDS: SODIUM CHLORIDE 0.9% 1,000 ML IV SCH (08:51)
[2019-03-26 12:07] LABS: Glucose,Whole Blood 208 mg/dL (75-99)
--- NOTE | 2019-03-26 13:51 | P.PN ---
Subjective Progress Note Date: 03/26/19 Principal diagnosis: Acute on chronic bilateral lower extremity wounds; infected 58-year-old white female who states that last week she noticed that her bladder not felt well with right breast being larger than the left breast. She states that she has not had any pain in her breasts. She states that she has swelling not only in the breast but she feels like it extends amylase side of her body. She states she did notany redness in her breast and no nipple discharge. She do es not give any history of any fever or chills. She has had sores posterior calves for which she is followed in the wound clinic. She also had an ultrasound performed of her breast which revealed thickening of the skin, and findings suspicious for inflammatory breast cancer. There was no discrete lesion noted. The patient has not had a mammogram performed. This patient is known to the ID service that she has chronic bilateral lower extremity ulcerations and follows in the wound center. When she presented to the hospital she states that she noted that both of her legs have become very wet, in the emergency room her white count was 6.5. The patient was placed on Rocephin admitted to the [facility] floor. She continues to have significant amounts of serous drainage from her lower extremities. Previous wound culture from November was positive for MRSA, Proteus, actinic Enterobacter, and previous to this in August wound culture was positive for Pseudomonas and providential. She was admitted with concerns of gram-negative sepsis and infectious disease was consulted. However it was also noted that the right breast was very enlarged. 03/23/2019 Patient is seen and evaluated in room at bedside; vital signs remained stable with temperature of 97.6, pulse 73, respiration 18 and blood pressure of 100/59 Lab review shows a CBC with a white blood count of 5.8, hemoglobin 8.2 and platelet count of 232; chemical profile shows sodium 144, potassium 4.4 with B UN of 40 creatinine 1.45 Patient remains on IV antibiotics with ID on case Patient is scheduled to undergo punch biopsy of right breast skin due to enlarged right breast to rule out inflammatory breast cancer 03/24/2019 Patient is seen for follow-up in room with family members at bedside; patient did have breast biopsy done; consent about drainage from biopsy site Vital signs are reviewed and remained stable Lab review done showing CBC with white blood count of 5.9, hemoglobin 8.9 and platelet count of 207; chemical profile sodium 144, potassium 4.6, BUN 35 and creatinine of 1.38 We will continue with current IV antibiotic therapy to further recommendations from ID 03/25/2019 Patient is seen and evaluated for follow-up at bedside; sleepy but easily arousable Vital signs remained stable with a temperature of 98, pulse 90, respirations 16 and blood pressure 112/64 lab review shows a white blood count of 6.3, hemoglobin 8.5 and chemical profile with sodium 145 potassium 4.7 BUN 36 creatinine 1.29 ID following for mastoiditis/ breast neoplasm and managing antibiotics 03/26/2019 Patient is seen and evaluated resting comfortably in bed; Vital signs remained stable; white blood cell is in normal range; patient remains on IV vancomycin for bilateral lower extremity cellulitis/ulcer; ID is following and will be making final recommendations for discharge antibiotic therapy PT/OT has evaluated patient and recommending skilled rehab; case management/[employer] on board for discharge planning Objective - Vital Signs Vital signs: Vital Signs Temp 97.7 F 03/26/19 07:55 Pulse 61 03/26/19 07:55 Resp 16 03/26/19 07:55 BP 123/57 03/26/19 07:55 Pulse Ox 96 03/26/19 07:55 Intake & Output 03/25/19 03/26/19 03/26/19 18:59 06:59 18:59 Intake Total 656 240 240 Balance 656 240 240 Intake: Oral 656 240 240 Other: Voiding Method Bedpan # Voids 1 2 - Exam - Constitutional General appearance: Present: average body habitus, cooperative, no acute distress Neck: Present: normal ROM. Absent: lymphadenopathy, rigidity, thyromegaly Carotids: negative: bruit present Thyroid: bilateral: normal size, negative: enlarged, noduleRespiratory: bilateral: CTA, negative: rales, rhonchi, wheezing - Cardiovascular Rhythm: regular Heart sounds: normal: S1, S2 Abnormal Heart Sounds: Absent: systolic murmur, diastolic murmur General gastrointestinal: Present: normal bowel sounds, soft. Absent: distended, organomegaly, tenderness Integumentary: Present: normal turgor. Absent: jaundiced, rash, ulcer - Neurologic Neurologic: Present: CNII-XII intact. Absent: focal deficits - Musculoskeletal Musculoskeletal: Present: gait normal, strength equal bilaterally - Labs CBC & Chem 7: 06/16/19 06:54 03/26/19 06:54 Labs: Abnormal Lab Results - Last 24 Hours (Table) 03/25/19 03/25/19 03/25/19 Range/Units 11:33 16:53 20:41 RBC (3.80-5.40) m/uL Hgb (11.4-16.0) gm/dL Hct (34.0-46.0) % MCH (25.0-35.0) pg MCHC (31.0-37.0) g/dL RDW (11.5-15.5) % Lymphocytes # (1.0-4.8) k/uL Chloride (98-107) mmol/L BUN (7-17) mg/dL Creatinine (0.52-1.04) mg/dL Glucose (74-99) mg/dL POC Glucose (mg/dL) 150 H 130 H 203 H (75-99) mg/dL Calcium (8.4-10.2) mg/dL 03/26/19 03/26/19 03/26/19 Range/Units 06:54 06:54 07:02 RBC 3.58 L (3.80-5.40) m/uL Hgb 8.7 L (11.4-16.0) gm/dL Hct 30.6 L (34.0-46.0) % MCH 24.3 L (25.0-35.0) pg MCHC 28.5 L (31.0-37.0) g/dL RDW 18.4 H (11.5-15.5) % Lymphocytes # 0.7 L (1.0-4.8) k/uL Chloride 114 H (98-107) mmol/L BUN 36 H (7-17) mg/dL Creatinine 1.29 H (0.52-1.04) mg/dL Glucose 119 H (74-99) mg/dL POC Glucose (mg/dL) 133 H (75-99) mg/dL Calcium 8.3 L (8.4-10.2) mg/dL Microbiology - Last 24 Hours (Table) 03/21/19 11:31 Blood Culture - Preliminary Blood No Growth after 96 hours Assessment and Plan Assessment: 1. Acute on chronic bilateral lower extremity ulcers 2. Chronic kidney disease stage III 3. Diabetes mellitus type 2 4. Hypertension 5. Hyperlipidemia 6. Morbid obesity 7. Enlarged right breast; for punch biopsy CODE STATUS; full code Time with Patient: Greater than 30
[2019-03-26 17:04] LABS: Glucose,Whole Blood 147 mg/dL (75-99)
[2019-03-26 19:50] VITALS: RESP 18
[2019-03-26 20:08] LABS: Glucose,Whole Blood 154 mg/dL (75-99)
[2019-03-26] MEDS: GABAPENTIN 300 MG CAP PO SCH (21:07)
[2019-03-26] MEDS: INSULIN DETEMIR (LEVEMIR) 100 UNIT/ML SYR SQ SCH (21:07)
[2019-03-27 07:20] LABS: Glucose,Whole Blood 93 mg/dL (75-99)
[2019-03-27 07:41] VITALS: BP 129/77; PULSE 56; TEMP 97.9
[2019-03-27] MEDS: CEFEPIME 2 GM in SODIUM CHLORIDE 0.9% 100 ML IVPB SCH (07:55)
[2019-03-27] MEDS: POTASSIUM CHLORIDE ER 20 MEQ TAB.ER PO SCH (07:56)
[2019-03-27] MEDS: PANTOPRAZOLE 40 MG TABLET PO SCH (07:56)
[2019-03-27] MEDS: ASPIRIN 81 MG PO SCH (07:56)
[2019-03-27] MEDS: CARVEDILOL 12.5 MG TAB PO SCH (07:56)
[2019-03-27] MEDS: FUROSEMIDE 20 MG TAB PO SCH (07:56)
[2019-03-27] MEDS: CLOPIDOGREL 75 MG TAB PO SCH (07:56)
[2019-03-27 08:02] LABS: Anisocytosis Slight; Basophils % (A) 1 %; Eosinophils # (A) 0.3 k/uL (0-0.7); Eosinophils % (A) 6 %; HCT 31.2 % (34.0-46.0); HGB 8.8 gm/dL (11.4-16.0); Hypochromasia Marked; Lymphocytes # (A) 0.8 k/uL (1.0-4.8); Lymphocytes % (A) 15 %; MCH 24.5 pg (25.0-35.0); MCHC 28.3 g/dL (31.0-37.0); MCV 86.6 fL (80.0-100.0); Mean Platelet Volume 7.5; Monocytes # (A) 0.4 k/uL (0-1.0); Monocytes % (A) 7 %; Neutrophils # (A) 3.8 k/uL (1.3-7.7); Neutrophils % (A) 69 %; Platelet Count 187 k/uL (150-450); WBC 5.4 k/uL (3.8-10.6)
[2019-03-27] MEDS: INSULIN ASPART (NovoLOG) 100 UNIT/ML VIAL SQ SCH ×2 (08:06→12:53)
[2019-03-27 08:15] LABS: Calcium 8.6 mg/dL (8.4-10.2); Potassium 4.9 mmol/L (3.5-5.1)
[2019-03-27] MEDS: CLOTRIMAZOLE 1% CREAM 15 GM TUBE TOPICAL SCH (08:54)
[2019-03-27] MEDS: SODIUM CHLORIDE 0.9% 1,000 ML IV SCH (09:26)
--- NOTE | 2019-03-27 10:23 | P.DS ---
Providers Date of admission: 03/22/19 10:45 Attending physician: Bobby Quinones Consults: 03/21/19 10:18 Consult Physician Urgent Consulting Provider: Jax Acuña Consult Reason/Comments: Bacteremia, mastitis, leg ulcers Do you want consulting provider notified?: Yes 03/21/19 10:44 Consult Physician Urgent Consulting Provider: Delia North Consult Reason/Comments: mastitis Do you want consulting provider notified?: Yes Primary care physician: Jason Garcia MD Hospital Course: Diagnosis Acute on chronic Bilateral lower asymmetry ulcers. Kidney disease stage III Diabetes mellitus type 2 Hypertension Hyperlipidemia Morbid obesity enlarged right breast for biopsy This 70 discussion Patient be discharged in a stable condition with guarded prognosis to [facility]. Total time taken 35 minutes. History of present illness This 58-year-old woman with a past medical history multiple medical was admitted with a bilateral lower leg ulcers patient was treated with antibiotics Patient Was Seen by Infection Disease. Patient Is Also Had Multiple Medical Issues As Mentioned Earlier. Gait Dysfunction Was Noted. PTOT Evaluate the Patient. ECF Rehab Is Recommended. I Would Recommend the Patient to Be Followed up by Dr. Marin of Dr. Snowden in the ECF. Followed up by His Physicians in the Outpatient Setting. On Exam Vitals Are Stable. Cardio S1 and S2 Normal. Respirator System Few Scattered Rhonchi. Abdomen Soft Nontender. Legs Pulses Present. Please Refer to the Medication Reconciliation Sheet for List of Discharge Medications. Once Again Patient Be Discharged in a Stable Condition with Guarded Prognosis with Further Plans to Follow up in the Preceding. CBC BMP in the ECF. Antibiotic per Infection Disease. Plan - Discharge Summary Discharge Rx Participant: No New Discharge Prescriptions: New INSULIN ASPART (NovoLOG) [NovoLOG (formulary)] 0 unit SQ ACHS vial Continue Albuterol Sulfate [Proair Hfa] 2 puff INHALATION RT-QID PRN PRN Reason: Shortness Of Breath Aspirin 81 mg PO DAILY chew Clopidogrel [Plavix] 75 mg PO DAILY Carvedilol [Coreg] 12.5 mg PO BID Insulin Detemir [Levemir Flextouch] 30 units SQ HS Potassium Chloride ER [K-Dur 20] 20 meq PO DAILY #30 tab Furosemide [Lasix] 20 mg PO BID #60 tablet INSULIN ASPART (NovoLOG) [NovoLOG (formulary)] See Protocol SQ AC-TID Zinc Oxide 20% Oint 1 applic TOPICAL BID PRN PRN Reason: LEGS Omeprazole 20 mg PO DAILY Acetaminophen Tab [Tylenol] 650 mg PO Q6H PRN PRN Reason: Pain Clotrimazole Cream [Lotrimin Cream] 1 applic TOPICAL BID 10 Days #1 tube Gabapentin [Neurontin] 300 mg PO HS #3 capsule Discharge Medication List Albuterol Sulfate [Proair Hfa] 2 puff INHALATION RT-QID PRN 02/18/18 [History] Aspirin 81 mg PO DAILY chew 06/02/18 [Rx] Carvedilol [Coreg] 12.5 mg PO BID 08/17/18 [History] Clopidogrel [Plavix] 75 mg PO DAILY 08/17/18 [History] Insulin Detemir [Levemir Flextouch] 30 units SQ HS 08/17/18 [History] Furosemide [Lasix] 20 mg PO BID #60 tablet 01/03/19 [Rx] Potassium Chloride ER [K-Dur 20] 20 meq PO DAILY #30 tab 01/03/19 [Rx] Acetaminophen Tab [Tylenol] 650 mg PO Q6H PRN 02/23/19 [History] INSULIN ASPART (NovoLOG) [NovoLOG (formulary)] See Protocol SQ AC-TID 02/23/19 [History] Omeprazole 20 mg PO DAILY 02/23/19 [History] Zinc Oxide 20% Oint 1 applic TOPICAL BID PRN 02/23/19 [History] Clotrimazole Cream [Lotrimin Cream] 1 applic TOPICAL BID 10 Days #1 tube 03/20/19 [Rx] Gabapentin [Neurontin] 300 mg PO HS #3 capsule 03/27/19 [Rx] INSULIN ASPART (NovoLOG) [NovoLOG (formulary)] 0 unit SQ ACHS vial 03/27/19 [Rx] Follow up Appointment(s)/Referral(s): Alejandro [facility], [NON-STAFF] - As Needed Nnamdi Snowden MD [STAFF PHYSICIAN] - 3 Days Jason Garcia MD [Primary Care Provider] - 2 Weeks Activity/Diet/Wound Care/Special Instructions: antibiotics per ID
[2019-03-27 11:43] LABS: Glucose,Whole Blood 105 mg/dL (75-99)
--- NOTE | 2019-03-28 00:57 | P.PN ---
Subjective Progress Note Date: 03/27/19 This is a 58-year-old female well known to ID service as she has chronic bilateral lower extremity ulcerations and [facility]. Her last point it was last Wednesday. She states she was doing fine following that but knows she needs to keep her legs elevated. On Wednesday she found that her legs were sopping wet. On Wednesday she was too weak to get out of bed and she slept until 3p.m. She called her caregiver and she was still too weak to get up. She had increasing pain to the right heel and also chills. She came into [facility] emergency center for evaluation. She was found to be afebrile, white count 6.5, lactic acid 1.0. Creatinine was 1.53 w hich appears to be chronic. Blood culture was obtained. Patient was placed on Rocephin and admitted to the [facility] floor. Patient continues to have significant amount of serous and in some areas serosanguineous drainage from her lower extremities. Previous wound culture from November of this year is positive for MRSA, Proteus mirabilis, Acinetobacter and previous to this and August wound culture was Pseudomonas aeruginosa and Providencia rettgeri. Eventually improved and was discharged home. Now short while later she is again ill with increasing lower extremity edema feeling poorly having fever and malaise and constantly was directed back to hospital. She's now been admitted with concerns to gram-negative sepsis the infectious diseases consultation was requested. 03/27/2019 patient has had further improvement. Biopsy from the process comeback negative for any malignancy. In her urinary symptoms of improved. No further fever Objective - Vital Signs Vital signs: Vital Signs Temp 97.9 F 03/27/19 07:15 Pulse 56 L 03/27/19 07:15 Resp 18 03/27/19 07:15 BP 129/77 03/27/19 07:15 Pulse Ox 96 03/27/19 07:15 Intake & Output 03/27/19 03/27/19 03/28/19 06:59 18:59 06:59 Intake Total 500 500 Balance 500 500 Weight 127.006 kg Intake: Oral 500 500 Other: Voiding Method Bedpan # Voids 2 3 - Exam Gen: This is a morbidly obese 58-year-old female. Patient is resting in bed with head of the bed of appears to be comfortable and in no acute distress. HEENT: Head is atraumatic, normocephalic. Pupils equal, round. Sclerae is anicteric. Conjunctiva pink. Mucous members of the mouth are moist. Patient is edentulous. No thrush noted. NECK: Supple. No JVD. No lymphadenopathy. No thyromegaly. LUNGS: Diminished. No wheezes or rhonchi. No intercostal retractions. HEART: Regular rate and rhythm. No murmur. ABDOMEN: Morbidly obese. Soft. Bowel sounds are present. No masses. No tenderness. Mild erythema under abdominal folds and moisture noted under bilateral breasts. EXTREMITIES: 2+ bilateral pedal edema. Large dressings in place of bilateral lower extremities was not removed for evaluation. Significant serous and in some areas serosanguineous drainage. Please refer to the photography for the multiple ulcerations that include bilateral proximal posterior thighs, bilateral lower extremities in the left heel NEUROLOGICAL: Patient is awake, alert and oriented x3. - Labs CBC & Chem 7: 03/27/19 07:10 03/27/19 07:10 Labs: Abnormal Lab Results - Last 24 Hours (Table) 03/27/19 03/27/19 03/27/19 Range/Units 07:10 07:10 11:42 RBC 3.60 L (3.80-5.40) m/uL Hgb 8.8 L (11.4-16.0) gm/dL Hct 31.2 L (34.0-46.0) % MCH 24.5 L (25.0-35.0) pg MCHC 28.3 L (31.0-37.0) g/dL RDW 18.0 H (11.5-15.5) % Lymphocytes # 0.8 L (1.0-4.8) k/uL Chloride 114 H (98-107) mmol/L BUN 35 H (7-17) mg/dL Creatinine 1.29 H (0.52-1.04) mg/dL POC Glucose (mg/dL) 105 H (75-99) mg/dL Microbiology - Last 24 Hours (Table) 03/21/19 11:31 Blood Culture - Final Blood No Growth after 144 hours Laboratory Results WBC 5.4 k/uL (3.8-10.6) 03/27/19 07:10 RBC 3.60 m/uL (3.80-5.40) L 03/27/19 07:10 Hgb 8.8 gm/dL (11.4-16.0) L 03/27/19 07:10 Hct 31.2 % (34.0-46.0) L 03/27/19 07:10 MCV 86.6 fL (80.0-100.0) 03/27/19 07:10 MCH 24.5 pg (25.0-35.0) L 03/27/19 07:10 MCHC 28.3 g/dL (31.0-37.0) L 03/27/19 07:10 RDW 18.0 % (11.5-15.5) H 03/27/19 07:10 Plt Count 187 k/uL (150-450) 03/27/19 07:10 Neutrophils % 69 % 03/27/19 07:10 Lymphocytes % 15 % 03/27/19 07:10 Monocytes % 7 % 03/27/19 07:10 Eosinophils % 6 % 03/27/19 07:10 Basophils % 1 % 03/27/19 07:10 Neutrophils # 3.8 k/uL (1.3-7.7) 03/27/19 07:10 Lymphocytes # 0.8 k/uL (1.0-4.8) L 03/27/19 07:10 Monocytes # 0.4 k/uL (0-1.0) 03/27/19 07:10 Eosinophils # 0.3 k/uL (0-0.7) 03/27/19 07:10 Basophils # 0.0 k/uL (0-0.2) 03/27/19 07:10 Hypochromasia Marked 03/27/19 07:10 Anisocytosis Slight 03/27/19 07:10 Sodium 144 mmol/L (137-145) 03/27/19 07:10 Potassium 4.9 mmol/L (3.5-5.1) 03/27/19 07:10 Chloride 114 mmol/L (98-107) H 03/27/19 07:10 Carbon Dioxide 23 mmol/L (22-30) 03/27/19 07:10 Anion Gap 7 mmol/L 03/27/19 07:10 BUN 35 mg/dL (7-17) H 03/27/19 07:10 Creatinine 1.29 mg/dL (0.52-1.04) H 03/27/19 07:10 Est GFR (CKD-EPI)AfAm 52 (>60 ml/min/1.73 sqM) 03/27/19 07:10 Est GFR (CKD-EPI)NonAf 46 (>60 ml/min/1.73 sqM) 03/27/19 07:10 Glucose 88 mg/dL (74-99) 03/27/19 07:10 POC Glucose (mg/dL) 105 mg/dL (75-99) H 03/27/19 11:42 POC Glu [employer] Lula Ambriz 03/27/19 11:42 Plasma Lactic Acid Sylvester 1.0 mmol/L (0.7-2.0) 03/21/19 11:31 Calcium 8.6 mg/dL (8.4-10.2) 03/27/19 07:10 Total Bilirubin 1.2 mg/dL (0.2-1.3) 03/21/19 11:31 AST 16 U/L (14-36) 03/21/19 11:31 ALT 13 U/L (9-52) 03/21/19 11:31 Alkaline Phosphatase 130 U/L (38-126) H 03/21/19 11:31 Total Protein 6.7 g/dL (6.3-8.2) 03/21/19 11:31 Albumin 3.6 g/dL (3.5-5.0) 03/21/19 11:31 Vancomycin Trough 26.2 ug/mL 03/25/19 11:50 Microbiology 03/21/19 11:31 Blood Blood Culture - Final No Growth after 144 hours Assessment and Plan (1) Bacteremia Narrative/Plan: 58-year-old woman who has super obesity lives in a senior apartment complex. Has a history of being recently A care facility and discharge back to her home setting with home care. She rapidly has worsened and has developed worsening ulcerations of the bilateral lower extremities despite curing the wound healing Center. Just became quite weak and felt quite poorly constantly she presents the emergency center and others evidence of bacteremia which is resulted in her current admission. Rigidity laboratory reported gram-positive cocci in chains however they never now corrected this to gram-negative bacilli. Antibiotic therapy is transition to cefepime 2 g every 12 hours for a current renal function. Follow blood cult ures are a been requested. Ongoing supportive care. The wounds were evaluated with the nurses and the high product is to the left heel the foam dressings to the reigning areas on the lower legs bilaterally, zinc cream to the posterior thigh area. To the significant isai infection beneath the breasts and the abdominal pannus the interim dry with the antifungal powder is requested. Depending on the findings of blood cultures will determine if she needs another PICC line and further outpatient intravenous antibiotic therapy. 03/24/2019 patient is doing somewhat better. She's having no further fever. Continues to have her difficulties with her breast. The biopsy has been performed. This of the blood cultures polymicrobial and is indicative of contaminated culture. Follow blood culture is negative and since there was no antibiotic therapy directed against the pathogens layer resolution indicates the contamination. Of note the 2 cultures that were obtained are technically 1 cul tures are drawn at the same moment at the time of admission. The breast biopsy has been performed and will help determine the course of antibiotic therapy at discharge. We'll not require intravenous antibiotic therapy. 03/27/2019 as noted deep breast biopsy has come back as negative for inflammator y breast carcinoma. A blood culture is polymicrobial contaminated specimen and follow blood culture is negative, and without therapy for the multiple prior pathogens clarifies the contamination nature. For the lower extremity cellulitis with her many ALLERGIES doxycycline 100 mg twice per day is sent to her pharmacy and she is being discharged. Continue local wound care and possible fall in the outpatient setting. Status: Acute Code(s): R78.81 - BACTEREMIA SNOMED Code(s): 1415742 (2) Obesity Status: Acute Priority: Medium Code(s): E66.9 - OBESITY, UNSPECIFIED SNOMED Code(s): 154706786 (3) Cellulitis of both lower extremities Status: Acute Code(s): L03.115 - CELLULITIS OF RIGHT LOWER LIMB; L03.116 - CELLULITIS OF LEFT LOWER LIMB SNOMED Code(s): 427719714
== END 2019-03-27 15:58 | DRG 300 ==
LOC: EC 09:05 → 3NMEDONC 10:18 → 4SSUR 14:41 → OBSVTOIN 03-22 10:45
PROVIDERS: ADMIT Hospitalist; ATTEND Hospitalist
PROC: 0HBT3ZX Excision of Right Breast, Percutaneous Approach, Diagnostic (ICD-10-PCS; principal; 2019-03-23)
DX: I87.2 Venous insufficiency (chronic) (peripheral) (principal); I13.0 Hypertensive heart and chronic kidney disease with heart failure and stage 1 through stage 4 chronic kidney disease, or unspecified chronic kidney disease; L03.115 Cellulitis of right lower limb; L03.116 Cellulitis of left lower limb; N18.4 Chronic kidney disease, stage 4 (severe); Z68.42 Body mass index [BMI] 45.0-49.9, adult; E11.22 Type 2 diabetes mellitus with diabetic chronic kidney disease; E11.42 Type 2 diabetes mellitus with diabetic polyneuropathy; E11.622 Type 2 diabetes mellitus with other skin ulcer; I50.9 Heart failure, unspecified; E66.01 Morbid (severe) obesity due to excess calories; E11.36 Type 2 diabetes mellitus with diabetic cataract; E78.5 Hyperlipidemia, unspecified; G89.29 Other chronic pain; I25.10 Atherosclerotic heart disease of native coronary artery without angina pectoris; I25.2 Old myocardial infarction; K21.9 Gastro-esophageal reflux disease without esophagitis; M06.9 Rheumatoid arthritis, unspecified; M19.90 Unspecified osteoarthritis, unspecified site; N61.0 Mastitis without abscess; B37.2 Candidiasis of skin and nail; F32.9 Major depressive disorder, single episode, unspecified; K80.20 Calculus of gallbladder without cholecystitis without obstruction; R26.9 Unspecified abnormalities of gait and mobility; R23.4 Changes in skin texture; R59.9 Enlarged lymph nodes, unspecified; M47.9 Spondylosis, unspecified; F40.240 Claustrophobia; R60.9 Edema, unspecified; Z79.02 Long term (current) use of antithrombotics/antiplatelets; Z79.4 Long term (current) use of insulin; Z79.82 Long term (current) use of aspirin; Z79.899 Other long term (current) drug therapy; Z88.8 Allergy status to other drugs, medicaments and biological substances; Z91.040 Latex allergy status; Z95.1 Presence of aortocoronary bypass graft; Z87.891 Personal history of nicotine dependence; Z86.14 Personal history of Methicillin resistant Staphylococcus aureus infection; Z90.49 Acquired absence of other specified parts of digestive tract; Z80.0 Family history of malignant neoplasm of digestive organs; Z80.3 Family history of malignant neoplasm of breast; Z82.3 Family history of stroke; Z82.49 Family history of ischemic heart disease and other diseases of the circulatory system; Z83.3 Family history of diabetes mellitus
CPT/HCPCS: 71046; 80048; 80053; 80202; 83605; 85025; 87040; 88305; 94640; 96365; 96366; 96368; 99285

== ENCOUNTER → 2019-04-12 | Outpatient (CLI) | payer MEDICARE, OTHER ==
[2019-04-12 12:58] VITALS: BP 115/71; PULSE 68; RESP 18; TEMP 97.7; BMI 58.1
--- NOTE | 2019-04-12 14:11 | P.PN ---
Subjective Progress Note Date: 04/12/19 Principal diagnosis: Grecia is a 58-year-old white female who approximately 3 weeks ago was admitted to the hospital with swelling in the right side of her body. The patient was seen in consultation at that time for swelling in her right breast. A punch biopsy of the skin was performed which did not show inflammatory cancer but only inflammation. The patient states the swelling in her breast has since decreased. The patient also had a mammogram performed on 7118. This revealed increased attenuation within the parenchyma of the right breast with thickening and increase in the skin of the right breast as compared to the contralateral side. Differential diagnosis included mastitis versus inflammatory cancer. As stated a punch biopsy was performed which was benign. The patient continues to have swelling on the right side of her body with some serous drainage at these sites. She does not have any fever or chills. She is on an antibiotic she is uncertain as to what antibiotic she is on. She continues to treatment for bilateral lower extremity ulcerations. She was discharged on doxycycline per Dr. Acuña. Medical history: 1. Myocardial infarction 2. Chronic leg wounds 3. Muscle weakness 4. morbid obesity 5. inflamed right breast/mastitis 6. COPD Surgical history: 1. 2 C-sections 2. Appendectomy 2. Double cardiac bypass Social history: Smoke: Former smoker stopped 8 years ago Alcohol: Negative Drugs: Negative Objective - Vital Signs Vital signs: Vital Signs Temp 97.7 F 04/12/19 12:54 Pulse 68 04/12/19 12:54 Resp 18 04/12/19 12:54 BP 115/71 04/12/19 12:54 Pulse Ox 94 L 04/12/19 12:54 Intake & Output 04/11/19 04/12/19 04/12/19 18:59 06:59 18:59 Weight 153.768 kg - Exam BMI 59.2 - Constitutional General appearance: Present: obese - EENT Eyes: Present: EOMI ENT: Present: hearing grossly normal - Respiratory Respiratory: bilateral: diminished (at bases) - Cardiovascular Rhythm: regular Heart sounds: normal: S1, S2 - Gastrointestinal Gastrointestinal Comment(s): skin lateral abdomen thickened General gastrointestinal: Present: soft - Integumentary Integumentary Comment(s): Inflamed thickened skin over right breast, right lateral abdomen and abdominal wall - Musculoskeletal Musculoskeletal Comment(s): wheel chair bound - Psychiatric Psychiatric: Present: A&O x's 3, appropriate affect, intact judgment & insight - Additional findings Additional findings: Breast examination: Right breast: Skin is inflamed and appears to have thickening, no cellulitis or erythema The site of the core biopsy is still not healed with some serous drainage but no definite infection The inflammation of the skin and appears to extend onto the anterior abdominal wall Radial axilla: No discrete adenopathy Left breast: Skin is soft and supple: No dominant masses or nodules of concern Assessment and Plan Assessment: Impression: 1. Right breast mastitis/does not appear to be a malignancy there has been some improvement with the antibiotics 2. Patient presently on doxycycline will confer with Dr. Acuña as to whether this is adequate 3. COPD 4. Prior NC 5. Wheelchair-bound 6. morbid obesity 7. Bilateral lower extremity cellulitis/ulceration The thickening in that abnormal mammogram in the right breast most likely from i nflammatory/infectious etiology. A skin biopsy was negative for any cancer. We will however continue to follow the patient and pelvis results. Failure to resolve would result in a repeat biopsy. I would recommend seeing the patient again in 3 weeks' time. Plan: 1. continue present therapy 2. medical management of medical problems 3. follow with ID 4. follow in 3 weeks CC: DR. Ybarra, DR. Garcia, Dr. Acuña
== END | disposition home or self-care (01) ==
LOC: WWCWWP 12:43
PROVIDERS: ATTEND Surgery
DX: Z53.9 Procedure and treatment not carried out, unspecified reason (principal)

== ENCOUNTER → 2019-05-18 | Outpatient (CLI) | payer MEDICARE, OTHER ==
[2019-05-18 10:55] VITALS: BP 118/69; PULSE 67; RESP 18; TEMP 97.7; BMI 55.6
--- NOTE | 2019-05-18 11:15 | P.PN ---
Subjective Progress Note Date: 05/18/19 Grecia is a 58-year-old white female whowas admitted to the hospital in March 2019 with swelling in the right side of her body. The patient was seen in consultation at that time for swelling in her right breast. A punch biopsy of the skin was performed which did not show inflammatory cancer but only infl ammation. The patient states the swelling in her breast has since decreased. The patient also had a mammogram performed on 7118. This revealed increased attenuation within the parenchyma of the right breast with thickening and increase in the skin of the right breast as compared to the contralateral side. Differential diagnosis included mastitis versus inflammatory cancer. As stated a punch biopsy was performed which was benign. The patient continued to have swelling on the right side of her body with some serous drainage at these sites. She does not have any fever or chills. She was seen by Dr. Acuña May 10 do not believe she had any active infection and it was recommended that she keep her breast elevated for persistent dependent edema. Medical history: 1. Myocardial infarction 2. Chronic leg wounds 3. Muscle weakness 4. morbid obesity 5. inflamed right breast/mastitis 6. COPD Surgical history: 1. 2 C-sections 2. Appendectomy 2. Double cardiac bypass Social history: Smoke: Former smoker stopped 8 years ago Alcohol: Negative Drugs: Negative Objective - Vital Signs Vital signs: Vital Signs Temp 97.7 F 05/18/19 10:49 Pulse 67 05/18/19 10:49 Resp 18 05/18/19 10:49 BP 118/69 05/18/19 10:49 Pulse Ox 95 05/18/19 10:49 Intake & Output 05/17/19 05/18/19 05/18/19 18:59 06:59 18:59 Weight 146.964 kg - Exam BMI 55.6 - Constitutional General appearance: Present: morbidly obese - EENT Eyes: Present: EOMI ENT: Present: hearing grossly normal - Respiratory Respiratory: bilateral: diminished (at bases) - Cardiovascular Rhythm: regular Heart sounds: normal: S1, S2 - Gastrointestinal General gastrointestinal: Present: soft - Integumentary Integumentary Comment(s): Right side as bilateral with increased edema which has decreased - Musculoskeletal Musculoskeletal Comment(s): in wheel chair - Psychiatric Psychiatric: Present: A&O x's 3, appropriate affect, intact judgment & insight - Additional findings Additional findings: Right breast: Patient continues to have some edema in the lateral aspect of the right breast however this is decreased markedly since her prior visits She has no dominant masses or nodules She has no evidence of active infection and is not presently on antibiotic Assessment and Plan Assessment: Impression: 1. Myocardial infarction 2. Chronic leg wounds 3. Muscle weakness 4. morbid obesity 5. Decreased inflamation right breast/mastitis/decreased inflammation 6. COPD Plan: 1. Medical management of medical conditions 2. Continued support of right breast, wearing block, landing on the left side, 3. Follow-up in 2 months to assure that the edema continues to decrease if it is persistent at that time would repeat a skin biopsy CC: Dr. Pearce
== END | disposition home or self-care (01) ==
LOC: WWCWWP 10:26
PROVIDERS: ATTEND Surgery
DX: Z53.9 Procedure and treatment not carried out, unspecified reason (principal)

== ENCOUNTER 2019-11-07 16:01 | Inpatient (IN) | payer MEDICARE, OTHER ==
[2019-11-07] MEDS ORDERED: cefTRIAXone IN SWFI 1,000 MG/10 ML SYRINGE IVP STA (18:26)
[2019-11-07] MEDS ORDERED: VANCOMYCIN IV PER PHARMACY 1 EACH MISC MISCELLANE PRN (18:26)
--- NOTE | 2019-11-07 18:52 | ED ---
General Adult HPI - General Chief complaint: Extremity Problem,Nontraumatic Stated complaint: Left leg wound/Cellulitis Time Seen by Provider: 11/07/19 18:15 Source: patient, RN notes reviewed, old records reviewed Mode of arrival: ambulatory Limitations: no limitations - History of Present Illness Initial comments: 59-year-old female presented for evaluation of infection in the left leg. She was sent from the wound care center for admission for IV antibiotics. She has had chills, no measured fever. Patient states she has been following with the wound center for some time and states over the past 3 days her leg got significantly worse including more erythema, more drainage and warmth. Denies abdominal pain or chest pain. Denies any other complaints. - Related Data Home Medications Medication Instructions Recorded Confirmed Carvedilol [Coreg] 12.5 mg PO BID 08/17/18 11/07/19 Clopidogrel [Plavix] 75 mg PO DAILY 08/17/18 11/07/19 Insulin Detemir [Levemir Flextouch] 10 units SQ HS 08/17/18 11/07/19 INSULIN ASPART (NovoLOG) [NovoLOG 20 unit SQ AC-TID 02/23/19 11/07/19 (formulary)] Ferrous Sulfate [Feosol] 325 mg PO DAILY 04/12/19 11/07/19 Albuterol Inhaler [Ventolin Hfa 2 puff INHALATION RT-QID PRN 11/07/19 11/07/19 Inhaler] Budesonide/Formoterol Fumarate 2 puff INHALATION RT-BID 11/07/19 11/07/19 [Symbicort 160-4.5 Mcg Inhaler] Furosemide [Lasix] 20 mg PO DAILY 11/07/19 11/07/19 Previous Rx's Medication Instructions Recorded Aspirin 81 mg PO DAILY chew 06/02/18 Potassium Chloride ER [K-Dur 20] 20 meq PO DAILY #30 tab 01/03/19 Gabapentin [Neurontin] 300 mg PO HS #3 capsule 03/27/19 Allergies Allergy/AdvReac Type Severity Reaction Status Date / Time collagenase Clostridium Allergy Unknown Verified 05/18/19 10:56 histolyticu [From Santyl] latex Allergy Rash/Hives Verified 05/18/19 10:56 pollen extracts AdvReac Mild Itching Verified 05/18/19 10:56 Review of Systems ROS Statement: Those systems with pertinent positive or pertinent negative responses have been documented in the HPI. ROS Other: All systems not noted in ROS Statement are negative. Past Medical History Past Medical History: Heart Failure, Diabetes Mellitus, GERD/Reflux, Hyperlipidemia, Hypertension, Myocardial Infarction ([place]), Osteoarthritis (OA), Rheumatoid Arthritis ([place]) Additional Past Medical History / Comment(s): Chronic bilateral venous stasis ulcers, bilateral lower leg cellulitis, pt states she has bilateral wounds on her thighs as well, IDDM type II, neuropathy bilateral legs/feet, CKD stage IV, Chronic back and bilateral leg pain, bilateral cataracts, gallstones, rash on bilateral shoulders/chest and L leg. Last Myocardial Infarction Date:: 2011 History of Any Multi-Drug Resistant Organisms: ESBL, MRSA Date of last positivie culture/infection: 03/20/19 MRSA MDRO Source:: MRSA BLOOD 10/13/17 ESBL URINE Past Surgical History: Appendectomy, Section, Coronary Bypass/CABG, Heart Catheterization, Uterine Ablation Additional Past Surgical History / Comment(s): 2011 CABG 2 vessel, D&C, C-sectio ns x 2, Past Anesthesia/Blood Transfusion Reactions: No Reported Reaction Additional Past Anesthesia/Blood Transfusion Reaction / Comment(s): clauster phobia Past Psychological History: Depression Smoking Status: Former smoker Past Alcohol Use History: None Reported Past Drug Use History: None Reported - Past Family History Mother Additional Family Medical History / Comment(s): anuerysm Father Family Medical History: CVA/TIA, Diabetes Mellitus, Myocardial Infarction ([place]) Sister(s) Additional Family Medical History / Comment(s): one sister had "hole in her heart" and a kidney transplant and another sister had ms. General Exam Limitations: no limitations General appearance: alert, in no apparent distress Head exam: Present: atraumatic, normocephalic Eye exam: Present: normal appearance, PERRL ENT exam: Present: normal exam Neck exam: Present: normal inspection. Absent: tenderness, meningismus Respiratory exam: Present: normal lung sounds bilaterally. Absent: respiratory distress, wheezes Cardiovascular Exam: Present: regular rate, normal rhythm GI/Abdominal exam: Present: soft. Absent: distended, tenderness Extremities exam: Present: tenderness, pedal edema, other (Left lower extremity, significant erythema from the foot to the distal knee which is circumferential. There is drainage and warmth. Cellulitis superimposed on chronic venous stasis. ) Neurological exam: Present: alert Psychiatric exam: Present: normal affect, normal mood Skin exam: Present: warm. Absent: cyanosis, diaphoretic Course Vital Signs 11/07/19 11/07/19 16:40 20:12 Temperature 98.7 F Pulse Rate 80 80 Respiratory 18 18 Rate Blood Pressure 116/60 110/57 O2 Sat by Pulse 98 95 Oximetry Medical Decision Making - Medical Decision Making Patient with significant circumferential left lower extremity cellulitis from the foot to the knee. Patient is initiated on broad-spectrum antibiotics. She will be admitted for continuous IV antibiotics and local wound care. Case is d iscussed with the admitting physician Dr. Li, will accept admission. Laboratory studies pending at the time of this dictation. - Lab Data Result diagrams: 11/07/19 19:00 11/07/19 19:00 Lab Results 11/07/19 11/07/19 11/07/19 Range/Units 19:00 19:00 19:00 WBC 8.9 (3.8-10.6) k/uL RBC 3.36 L (3.80-5.40) m/uL Hgb 9.3 L (11.4-16.0) gm/dL Hct 30.5 L (34.0-46.0) % MCV 90.6 (80.0-100.0) fL MCH 27.5 (25.0-35.0) pg MCHC 30.4 L (31.0-37.0) g/dL RDW 15.9 H (11.5-15.5) % Plt Count 309 (150-450) k/uL Neutrophils % 82 % Lymphocytes % 6 % Monocytes % 6 % Eosinophils % 3 % Basophils % 2 % Neutrophils # 7.3 (1.3-7.7) k/uL Lymphocytes # 0.5 L (1.0-4.8) k/uL Monocytes # 0.6 (0-1.0) k/uL Eosinophils # 0.3 (0-0.7) k/uL Basophils # 0.2 (0-0.2) k/uL Hypochromasia Moderate Sodium 137 (137-145) mmol/L Potassium 5.8 H (3.5-5.1) mmol/L Chloride 108 H (98-107) mmol/L Carbon Dioxide 21 L (22-30) mmol/L Anion Gap 8 mmol/L BUN 34 H (7-17) mg/dL Creatinine 1.30 H (0.52-1.04) mg/dL Est GFR (CKD-EPI)AfAm 52 (>60 ml/min/1.73 sqM) Est GFR (CKD-EPI)NonAf 45 (>60 ml/min/1.73 sqM) Glucose 204 H (74-99) mg/dL Plasma Lactic Acid Sylvester 0.9 (0.7-2.0) mmol/L Calcium 8.1 L (8.4-10.2) mg/dL Total Bilirubin 1.1 (0.2-1.3) mg/dL AST 17 (14-36) U/L ALT 6 (4-34) U/L Alkaline Phosphatase 155 H (38-126) U/L Total Protein 6.6 (6.3-8.2) g/dL Albumin 3.1 L (3.5-5.0) g/dL Disposition Clinical Impression: Venous stasis ulcers of both lower extremities, Failure of outpatient treatment, Cellulitis, leg Disposition: ADMITTED IP TO THIS [facility] Condition: Stable Is patient prescribed a controlled substance at d/c from ED?: No Decision to Admit Reason: Admit from EC Decision Date: 11/07/19 Decision Time: 18:52
[2019-11-07] MEDS ORDERED: VANCOMYCIN 2,000 MG in SODIUM CHLORIDE 0.9% 500 ML 500 ML IVPB ONE (19:00)
[2019-11-07 19:15] LABS: Basophils # (A) 0.2 k/uL (0-0.2); Basophils % (A) 2 %; Eosinophils # (A) 0.3 k/uL (0-0.7); Eosinophils % (A) 3 %; HCT 30.5 % (34.0-46.0); HGB 9.3 gm/dL (11.4-16.0); Hypochromasia Moderate; Lymphocytes # (A) 0.5 k/uL (1.0-4.8); Lymphocytes % (A) 6 %; MCH 27.5 pg (25.0-35.0); MCHC 30.4 g/dL (31.0-37.0); MCV 90.6 fL (80.0-100.0); Mean Platelet Volume 7.2; Monocytes # (A) 0.6 k/uL (0-1.0); Monocytes % (A) 6 %; Neutrophils # (A) 7.3 k/uL (1.3-7.7); Neutrophils % (A) 82 %; Platelet Count 309 k/uL (150-450); RBC 3.36 m/uL (3.80-5.40); RDW 15.9 % (11.5-15.5); WBC 8.9 k/uL (3.8-10.6)
[2019-11-07] MEDS ORDERED: NALOXONE 0.4 MG/ML 1 ML VIAL IV PRN (19:15)
[2019-11-07 19:22] LABS: Albumin 3.1 g/dL (3.5-5.0); Calcium 8.1 mg/dL (8.4-10.2); Potassium 5.8 mmol/L (3.5-5.1); Total Bilirubin 1.1 mg/dL (0.2-1.3); Total Protein 6.6 g/dL (6.3-8.2)
--- NOTE | 2019-11-07 22:05 | P.HPIM ---
History of Present Illness H&P Date: 11/07/19 The patient is a 59-year-old female with an extensive PMH consisting of coronary artery disease status post CABG, type 2 diabetes mellitus, chronic lower extremity venous stasis, hypertension, hyper lipidemia, rheumatoid arthritis, and peripheral neuropathy, follows with the wound care clinic due to chronic venous stasis ulcers of lower extremities was sent from the clinic due to suspected cellulitis of the left lower extremity. The patient reports that she previously has been following with the wound care clinic for several years and sees Dr. Acuña. She reports that over the past 2-3 days however, the left leg appeared significantly swollen, erythematous, with weeping. She was there was sent to the emergency room. She notes no lower extremity pain at rest. She denied any additional complaints. She denied chest pain, shortness of breath, fever, chills, nausea, vomiting, or abdominal pain. The patient underwent an extensive evaluation in the emergency room with a hemoglobin of 9.3, potassium 5.8, BUN 34, creatinine 1.3, glucose 204, alkaline phosphatase 155, and an albumin of 3.1. Review of Systems Pertinent positives and negatives as discussed in HPI, a complete review of systems was performed and all other systems are negative. Past Medical History Past Medical History: Heart Failure, Diabetes Mellitus, GERD/Reflux, Hyperlipidemia, Hypertension, Myocardial Infarction ([place]), Osteoarthritis (OA), Rheumatoid Arthritis (RA) Additional Past Medical History / Comment(s): Chronic bilateral venous stasis ulcers, bilateral lower leg cellulitis, pt states she has bilateral wounds on her thighs as well, IDDM type II, neuropathy bilateral legs/feet, CKD stage IV, Chronic back and bilateral leg pain, bilateral cataracts, gallstones, rash on bilateral shoulders/chest and L leg. Last Myocardial Infarction Date:: 2011 History of Any Multi-Drug Resistant Organisms: ESBL, MRSA Date of last positivie culture/infection: 03/20/19 MRSA MDRO Source:: MRSA BLOOD 10/13/17 ESBL URINE Past Surgical History: Appendectomy, Section, Coronary Bypass/CABG, Heart Catheterization, Uterine Ablation Additional Past Surgical History / Comment(s): 2011 CABG 2 vessel, D&C, C- sections x 2, Past Anesthesia/Blood Transfusion Reactions: No Reported Reaction Additional Past Anesthesia/Blood Transfusion Reaction / Comment(s): clausterphobia Past Psychological History: Depression Smoking Status: Former smoker Past Alcohol Use History: None Reported Past Drug Use History: None Reported - Past Family History Mother Additional Family Medical History / Comment(s): anuerysm Father Family Medical History: CVA/TIA, Diabetes Mellitus, Myocardial Infarction ([place]) Sister(s) Additional Family Medical History / Comment(s): one sister had "hole in her heart" and a kidney transplant and another sister had ms. Medications and Allergies Home Medications Medication Instructions Recorded Confirmed Type Aspirin 81 mg PO DAILY chew 06/02/18 11/07/19 Rx Carvedilol [Coreg] 12.5 mg PO BID 08/17/18 11/07/19 History Clopidogrel [Plavix] 75 mg PO DAILY 08/17/18 11/07/19 History Insulin Detemir [Levemir Flextouch] 10 units SQ HS 08/17/18 11/07/19 History Potassium Chloride ER [K-Dur 20] 20 meq PO DAILY #30 tab 01/03/19 11/07/19 Rx INSULIN ASPART (NovoLOG) [NovoLOG 20 unit SQ AC-TID 02/23/19 11/07/19 History (formulary)] Gabapentin [Neurontin] 300 mg PO HS #3 capsule 03/27/19 11/07/19 Rx Ferrous Sulfate [Feosol] 325 mg PO DAILY 04/12/19 11/07/19 History Albuterol Inhaler [Ventolin Hfa 2 puff INHALATION RT-QID PRN 11/07/19 11/07/19 History Inhaler] Budesonide/Formoterol Fumarate 2 puff INHALATION RT-BID 11/07/19 11/07/19 History [Symbicort 160-4.5 Mcg Inhaler] Furosemide [Lasix] 20 mg PO DAILY 11/07/19 11/07/19 History Allergies Allergy/AdvReac Type Severity Reaction Status Date / Time collagenase Clostridium Allergy Unknown Verified 05/18/19 10:56 histolyticu [From Santyl] latex Allergy Rash/Hives Verified 05/18/19 10:56 pollen extracts AdvReac Mild Itching Verified 05/18/19 10:56 Physical Exam Vitals: Vital Signs Temp Pulse Resp BP Pulse Ox 11/07/19 20:12 80 18 110/57 95 11/07/19 16:40 98.7 F 80 18 116/60 98 Intake and Output 11/07/19 11/07/19 11/07/19 06:59 14:59 22:59 Other: Weight 137.892 kg General: non toxic, no distress, appears older than stated age, obese Derm: LLE chronic venous stasis changes with erythema, swelling, and purulent drainage from ulcer on dorsum of foot 2 cm x 2 cm, diffuse weeping of skin with 2+ edema noted Head: atraumatic, normocephalic, symmetric Eyes: EOMI, no lid lag, anicteric sclera, pupils equal round reactive to light ENT: Nose and ears atraumatic, no thrush, no pharyngeal erythema Neck: No thyromegaly, no cervical lymphadenopathy, trachea midline, supple Mouth: no lip lesion, mucus membranes moist Cardiovascular: S1S2 reg, no murmur, positive posterior tibial pulse bilateral, capillary refill less than 2 seconds Lungs: CTA bilateral, no rhonchi, no rales , no accessory muscle use Abdominal: soft, nontender to palpation, no guarding, no appreciable organomegaly, normal bowel sounds Ext: no gross muscle atrophy, muscle strength 3 out of 5 in wandy LEs with 5/5 of UEs, no contractures, Neuro: CN II-XI grossly intact, diminished sensation of wandy LEs, finger to nose within normal limits, Psych: Alert, oriented, appropriate affect Results CBC & Chem 7: 11/07/19 19:00 11/07/19 19:00 Labs: Abnormal Lab Results - Last 24 Hours (Table) 11/07/19 11/07/19 Range/Units 19:00 19:00 RBC 3.36 L (3.80-5.40) m/uL Hgb 9.3 L (11.4-16.0) gm/dL Hct 30.5 L (34.0-46.0) % MCHC 30.4 L (31.0-37.0) g/dL RDW 15.9 H (11.5-15.5) % Lymphocytes # 0.5 L (1.0-4.8) k/uL Potassium 5.8 H (3.5-5.1) mmol/L Chloride 108 H (98-107) mmol/L Carbon Dioxide 21 L (22-30) mmol/L BUN 34 H (7-17) mg/dL Creatinine 1.30 H (0.52-1.04) mg/dL Glucose 204 H (74-99) mg/dL Calcium 8.1 L (8.4-10.2) mg/dL Alkaline Phosphatase 155 H (38-126) U/L Albumin 3.1 L (3.5-5.0) g/dL Assessment and Plan Plan: LLE cellulitis in setting of chronic venous stasis -Wound care and infectious disease consult -Patient received ceftriaxone and vancomycin in the emergency room. Continue with vancomycin and start Zosyn -Follow-up blood cultures Chronic normocytic anemia -Likely due to multiple comorbidities and chronic inflammation -At baseline -Monitor CBC Hyperkalemia -Administer Kayexalate and monitor BMP -Patient prescribed KCl at home. Will hold. CKD stage III -At baseline -Monitor BMP Chronic conditions: Type 2 diabetes mellitus, hypertension, hyperlipidemia, rheumatoid arthritis, coronary artery disease, COPD -GENA with FS. Levemir 10 U qhs (home dose) -C/w home meds Moderate protein calorie malnutrition -[employer] consult DVT prophylaxis -Heparin subq The patient is admitted with an anticipated more than 2 midnight stay for evaluation of cellulitis CODE STATUS: Full Code Discussed with: Patient Anticipated discharge date: 2-[address]: Home A total of 45 minutes was spent on the care of this complex patient more than 50% of the time was spent in counseling and care coordination.
[2019-11-07] MEDS ORDERED: CALCIUM GLUCONATE 1 GM in SODIUM CHLORIDE 0.9% 100 ML IVPB ONE (22:15)
[2019-11-07] MEDS: SODIUM POLYSTYRENE SULFONATE 15 GM/60 ML BOTTLE PO STA ×2 (22:36→22:52)
[2019-11-07] MEDS: INSULIN DETEMIR (LEVEMIR) 100 UNIT/ML SYR SQ SCH (22:51)
[2019-11-07 23:01] LABS: Glucose,Whole Blood 263 mg/dL (75-99)
[2019-11-08] MEDS: HEPARIN SODIUM,PORCINE 5,000 UNIT/ML 1 ML VIAL SQ SCH ×3 (01:33→16:46)
[2019-11-08] MEDS: PIPERACILLIN-TAZOBACTAM 3.375 GM in SODIUM CHLORIDE 0.9% 100 ML IVPB SCH ×3 (01:38→16:10)
[2019-11-08] MEDS: ACETAMINOPHEN TAB 325 MG TAB PO PRN ×2 (02:56→23:49)
[2019-11-08 06:59] LABS: HCT 28.9 % (34.0-46.0); HGB 8.4 gm/dL (11.4-16.0); Hypochromasia Marked; MCH 26.9 pg (25.0-35.0); MCHC 29.2 g/dL (31.0-37.0); MCV 91.9 fL (80.0-100.0); Mean Platelet Volume 7.4; Platelet Count 310 k/uL (150-450); RBC 3.14 m/uL (3.80-5.40); RDW 15.6 % (11.5-15.5); WBC 7.5 k/uL (3.8-10.6)
[2019-11-08 07:08] LABS: Potassium 5.3 mmol/L (3.5-5.1)
[2019-11-08] MEDS: SYMBICORT 160-4.5 MCG INHALER INHALATION SCH ×2 (07:40→21:26)
[2019-11-08 08:24] LABS: Glucose,Whole Blood 144 mg/dL (75-99)
[2019-11-08] MEDS: FUROSEMIDE 20 MG TAB PO SCH (08:25)
[2019-11-08] MEDS: CLOPIDOGREL 75 MG TAB PO SCH (08:26)
[2019-11-08] MEDS: ASPIRIN 81 MG PO SCH (08:26)
[2019-11-08] MEDS: CARVEDILOL 12.5 MG TAB PO SCH ×2 (08:26→16:46)
[2019-11-08] MEDS: INSULIN ASPART (NovoLOG) 100 UNIT/ML VIAL SQ SCH ×3 (10:02→17:23)
[2019-11-08] MEDS ORDERED: VANCOMYCIN 2,000 MG in SODIUM CHLORIDE 0.9% 500 ML 500 ML IVPB SCH (12:00)
[2019-11-08 12:09] LABS: Glucose,Whole Blood 204 mg/dL (75-99)
[2019-11-08 12:10] LABS: Glucose,Whole Blood 187 mg/dL (75-99)
[2019-11-08 17:02] LABS: Glucose,Whole Blood 145 mg/dL (75-99)
--- NOTE | 2019-11-08 19:34 | P.PN ---
Progress Note - Text Progress Note Date: 11/08/19 Interval history: This is a patient with chronic lower extremity leg wounds that followed by Dr. Acuña at the wound Center. Patient presents with worsening wounds with drainage and oozing. Infected appearing. Admitted for the same. Review of systems: Was done for constitutional, cardiovascular, GI, pulmonary. relevant finding as above Active Medications Acetaminophen (Tylenol Tab) 650 mg PO Q6HR PRN PRN Reason: Mild Pain or Fever > 100.5 Last Admin: 11/08/19 02:56 Dose: 650 mg Documented by: Aspirin (Aspirin) 81 mg PO DAILY [facility] Last Admin: 11/08/19 08:26 Dose: 81 mg Documented by: Budesonide/Formoterol Fumarate (Symbicort 160-4.5 Mcg Inhaler) 2 puff INHALATION RT-BID [facility] Last Admin: 11/08/19 07:40 Dose: 2 puff Documented by: Carvedilol (Coreg) 12.5 mg PO BID-W/MEALS [facility] Last Admin: 11/08/19 16:46 Dose: 12.5 mg Documented by: Clopidogrel Bisulfate (Plavix) 75 mg PO DAILY [facility] Last Admin: 11/08/19 08:26 Dose: 75 mg Documented by: Furosemide (Lasix) 20 mg PO DAILY [facility] Last Admin: 11/08/19 08:25 Dose: 20 mg Documented by: Heparin Sodium (Porcine) (Heparin) 5,000 unit SQ Q8HR [facility] Last Admin: 11/08/19 16:46 Dose: 5,000 unit Documented by: Vancomycin HCl 2,000 mg/ (Sodium Chloride) 500 mls @ 167 mls/hr IVPB Q24H [facility] Last Admin: 11/08/19 12:05 Dose: 167 mls/hr Documented by: Piperacillin Sod/Tazobactam (Sod 3.375 gm/ Sodium Chloride) 100 mls @ 25 mls/hr IVPB Q8HR [facility] Last Admin: 11/08/19 16:10 Dose: Not Given Documented by: Insulin Aspart (Novolog) 0 unit SQ AC-TID [facility]; Protocol Last Admin: 11/08/19 17:23 Dose: 1 unit Documented by: Insulin Detemir (Levemir) 10 unit SQ HS [facility] Last Admin: 11/07/19 22:51 Dose: 10 unit Documented by: Naloxone HCl (Narcan) 0.2 mg IV Q2M PRN PRN Reason: Opioid Reversal On examination: VITAL SIGNS: 97.4, 79, 18, 106/56, 91% room air GENERAL APPEARANCE: BMI 52.2, laying in bed tired HEENT: Normal external appearance of nose and ear. Oral cavity normal EYES: Pupils equal. Conjunctiva normal. NECK: JVD unable to assess,. Mass not palpable. RESPIRATORY: Respiratory effort increased. Diminished breath sounds. CARDIOVASCULAR: First and second sounds normal. Edema present. ABDOMEN: Soft. Liver and spleen not palpable. No tenderness. No mass palpable. PSYCHIATRY: Alert and oriented x3. Mood and affect normal. EXTREMITIES: Dressing is present over the left lower extremity, moist from drainage, very dry skin of the feet with evidence of fungal infection INVESTIGATIONS, reviewed in the clinical context: White count 7.5 hemoglobin 8.4 potassium 5.3 bun 34 creatinine 1.33 Labs from May 2019 include bun 31 creatinine 1.74 Assessment: -Acute on chronic bilateral lower extremity wounds from venous stasis ulcers, with secondary infection,oozing -Chronic kidney disease stage III from diabetic nephropathy and nephrosclerosis -Morbid obesity BMI 52.2 -Diabetes mellitus type 2 chronically on insulin -GERD -Essential hypertension -Hyperlipidemia -Coronary artery disease with prior history of bypass -Diabetic peripheral neuropathy -Chronic low back pain from arthritis -Chronic medical debility patient is a walker or wheelchair Plan: Home medications resumed this. Accu-Cheks will be followed. Care was discussed with the patient. Questions were answered. Infectious disease Dr. byrd been consulted. Patient started on IV Zosyn and vancomycin earlier. Given the renal function we'll DC the vancomycin. Wound care orders per ID..
[2019-11-08 20:53] LABS: Glucose,Whole Blood 149 mg/dL (75-99)
[2019-11-08] MEDS: INSULIN DETEMIR (LEVEMIR) 100 UNIT/ML SYR SQ SCH (22:00)
--- NOTE | 2019-11-08 22:42 | P.CONS ---
History of Present Illness - Reason for Consult Consult date: 11/08/19 left leg cellulitis Requesting physician: Bobby Quinones - Chief Complaint left leg pain swelling and redness x 3 dasy - History of Present Illness Patient is a 59-year-old female with a past medical history significant for chronic lower extremity venous stasis ulcer and cellulitis for the patient has been following at [facility] wound care center patient was evaluated in the wound care center yesterday she was noticed to have a more swelling her redness and drainage from her leg leg with concern for cellulitis as the patient complaining of some chills patient has been directed to go to the [facility] ER to be admitted for IV antibiotic therapy patient on presentation to the hospital has been afebrile and no fever has been recorded since admission her white count has been normal creatinine is 1.33 patient received a dose of vancomycin and Zosyn she has been admitted to hospital infectious disease has been consulted for further recommendation regarding antibiotic therapy patient has been complaining of pain to the left leg more of a dull aching at times sharp about 6 out of 10. Did have a diffuse swelling redness and did have weeping edema but no foul-smelling denies any nausea no with no abdominal pain no diarrhea. Review of Systems Positive point has been mentioned in HPI rest of the systems are negative Past Medical History Past Medical History: Coronary Artery Disease (CAD), Heart Failure, Diabetes Mellitus, GERD/Reflux, Hyperlipidemia, Hypertension, Myocardial Infarction (VT), Osteoarthritis (OA), Renal Disease, Rheumatoid Arthritis (RA), Skin Disorder, Vascular Disorder Additional Past Medical History / Comment(s): Chronic bilateral venous stasis ulcers, pt states she currently has L lower leg wound being tx at [facility] and that R lower leg wound nearly healed, bilateral lower leg cellulitis, past bilateral heel wounds, IDDM type II, neuropathy bilateral legs/feet, CKD stage III, Chronic back and bilateral leg pain, bilateral cataracts, gallstones, rash on bilateral shoulders/chest and L leg, R breast slightly enlarged-punch skin bx negative. Last Myocardial Infarction Date:: 2011 History of Any Multi-Drug Resistant Organisms: ESBL, MRSA Year Discovered:: 03/20/19 MRSA MDRO Source:: MRSA BLOOD 10/13/17 ESBL URINE Past Surgical History: Appendectomy, Section, Coronary Bypass/CABG, Heart Catheterization, Uterine Ablation Additional Past Surgical History / Comment(s): 2011 CABG 2 vessel, D&C, C- sections x 2, bilateral lower leg/heels debrided. Past Anesthesia/Blood Transfusion Reactions: No Reported Reaction Additional Past Anesthesia/Blood Transfusion Reaction / Comm: clausterphobia Smoking Status: Former smoker - Past Family History Mother Additional Family Medical History / Comment(s): anuerysm Father Family Medical History: CVA/TIA, Diabetes Mellitus, Myocardial Infarction (VT) Sister(s) Additional Family Medical History / Comment(s): one sister had "hole in her heart" and a kidney transplant and another sister had ms. Medications and Allergies Home Medications Medication Instructions Recorded Confirmed Type Aspirin 81 mg PO DAILY chew 06/02/18 11/07/19 Rx Carvedilol [Coreg] 12.5 mg PO BID 08/17/18 11/07/19 History Clopidogrel [Plavix] 75 mg PO DAILY 08/17/18 11/07/19 History Insulin Detemir [Levemir Flextouch] 10 units SQ HS 08/17/18 11/07/19 History Potassium Chloride ER [K-Dur 20] 20 meq PO DAILY #30 tab 01/03/19 11/07/19 Rx INSULIN ASPART (NovoLOG) [NovoLOG 20 unit SQ AC-TID 02/23/19 11/07/19 History (formulary)] Gabapentin [Neurontin] 300 mg PO HS #3 capsule 03/27/19 11/07/19 Rx Ferrous Sulfate [Feosol] 325 mg PO DAILY 04/12/19 11/07/19 History Albuterol Inhaler [Ventolin Hfa 2 puff INHALATION RT-QID PRN 11/07/19 11/07/19 History Inhaler] Budesonide/Formoterol Fumarate 2 puff INHALATION RT-BID 11/07/19 11/07/19 History [Symbicort 160-4.5 Mcg Inhaler] Furosemide [Lasix] 20 mg PO DAILY 11/07/19 11/07/19 History Allergies Allergy/AdvReac Type Severity Reaction Status Date / Time collagenase Clostridium Allergy Unknown Verified 05/18/19 10:56 histolyticu [From Santyl] latex Allergy Rash/Hives Verified 05/18/19 10:56 pollen extracts AdvReac Mild Itching Verified 05/18/19 10:56 Physical Exam Vitals: Vital Signs Temp Pulse Pulse Resp BP BP Pulse Ox 11/08/19 16:08 97.3 F L 75 16 120/71 93 L 11/08/19 08:05 97.4 F L 79 18 116/56 91 L 11/08/19 00:30 97.9 F 70 20 123/70 96 Intake and Output 11/08/19 11/08/19 11/08/19 06:59 14:59 22:59 Other: Voiding Method Diaper Weight 137.892 kg GENERAL DESCRIPTION: Middle-aged female lying in bed, no distress. No tachypnea or accessory muscle of respiration use. HEENT: Shows Pallor , no scleral icterus. Oral mucous membrane is dry. NECK: Trachea central, no thyromegaly. LUNGS: Unlabored breathing. Clear to auscultation anteriorly. No wheeze or crackle. HEART: S1, S2, regular rate and rhythm. ABDOMEN: Soft, no tenderness , guarding or rigidity EXTREMITIES: Left leg with diffuse swelling redness some clear drainage no purulence , right leg did have a compression dressing that was applied in the wound care with instruction not open sKIN: No rash, no masses palpable. NEUROLOGICAL: The patient is awake, alert, oriented x3, mood and affect normal. Results CBC & Chem 7: 11/08/19 06:37 11/08/19 06:37 Labs: Abnormal Lab Results - Last 24 Hours (Table) 11/07/19 11/08/19 11/08/19 Range/Units 22:50 06:37 06:37 RBC 3.14 L (3.80-5.40) m/uL Hgb 8.4 L (11.4-16.0) gm/dL Hct 28.9 L (34.0-46.0) % MCHC 29.2 L (31.0-37.0) g/dL RDW 15.6 H (11.5-15.5) % Potassium 5.3 H (3.5-5.1) mmol/L Chloride 109 H (98-107) mmol/L BUN 34 H (7-17) mg/dL Creatinine 1.33 H (0.52-1.04) mg/dL Glucose 155 H (74-99) mg/dL POC Glucose (mg/dL) 263 H (75-99) mg/dL Calcium 8.0 L (8.4-10.2) mg/dL 11/08/19 11/08/19 11/08/19 Range/Units 08:21 12:08 12:09 RBC (3.80-5.40) m/uL Hgb (11.4-16.0) gm/dL Hct (34.0-46.0) % MCHC (31.0-37.0) g/dL RDW (11.5-15.5) % Potassium (3.5-5.1) mmol/L Chloride (98-107) mmol/L BUN (7-17) mg/dL Creatinine (0.52-1.04) mg/dL Glucose (74-99) mg/dL POC Glucose (mg/dL) 144 H 204 H 187 H (75-99) mg/dL Calcium (8.4-10.2) mg/dL 11/08/19 11/08/19 Range/Units 16:46 20:50 RBC (3.80-5.40) m/uL Hgb (11.4-16.0) gm/dL Hct (34.0-46.0) % MCHC (31.0-37.0) g/dL RDW (11.5-15.5) % Potassium (3.5-5.1) mmol/L Chloride (98-107) mmol/L BUN (7-17) mg/dL Creatinine (0.52-1.04) mg/dL Glucose (74-99) mg/dL POC Glucose (mg/dL) 145 H 149 H (75-99) mg/dL Calcium (8.4-10.2) mg/dL Microbiology - Last 24 Hours (Table) 11/07/19 19:00 Blood Culture - Preliminary Blood No Growth after 24 hours Assessment and Plan Assessment: -patient with left lower extremity venous stasis ulcer with secondary cellulitis likely from gram-positive skin christo clinically doubt gram-negative or MRSA infection in this patient currently does not have any fever or elevated white count and does not look toxic (1) Venous stasis ulcers of both lower extremities Current Visit: Yes Status: Acute Code(s): I83.019 - VARICOSE VEINS OF RIGHT LOWER EXTREMITY W ULCER OF UNSP SITE; I83.029 - VARICOSE VEINS OF LEFT LOWER EXTREMITY W ULCER OF UNSP SITE; L97.919 - NON-PRS CHRONIC ULC UNSP PRT OF R LOW LEG W UNSP SEVERITY; L97.929 - NON-PRS CHRONIC ULC UNSP PRT OF L LOW LEG W UNSP SEVERITY SNOMED Code(s): 019333576 (2) Cellulitis of left leg Current Visit: No Status: Acute Code(s): L03.116 - CELLULITIS OF LEFT LOWER LIMB SNOMED Code(s): 263445212 Plan: 1-discontinue Zosyn 2-start the patient cefazolin 2 g every 8 hours 3 dry Aquacel silver dressing to the open wound-wound area with drainage followed by ABD and an Yusuf wrap from just above the toe to below the knee We will follow on clinical condition and cultures to further adjust medication if needed Thank you for this consultation we will follow the patient along with you
[2019-11-09] MEDS: PIPERACILLIN-TAZOBACTAM 3.375 GM in SODIUM CHLORIDE 0.9% 100 ML IVPB SCH ×3 (00:15→16:02)
[2019-11-09 07:19] LABS: Glucose,Whole Blood 126 mg/dL (75-99)
[2019-11-09] MEDS: INSULIN ASPART (NovoLOG) 100 UNIT/ML VIAL SQ SCH ×3 (07:20→17:17)
[2019-11-09] MEDS: ENOXAPARIN 40 MG/0.4 ML SYRINGE SQ SCH (08:25)
[2019-11-09] MEDS: CLOPIDOGREL 75 MG TAB PO SCH (08:25)
[2019-11-09] MEDS: CARVEDILOL 12.5 MG TAB PO SCH ×2 (08:25→17:18)
[2019-11-09] MEDS: FUROSEMIDE 20 MG TAB PO SCH (08:25)
[2019-11-09] MEDS: ASPIRIN 81 MG PO SCH (08:25)
[2019-11-09] MEDS: SYMBICORT 160-4.5 MCG INHALER INHALATION SCH ×2 (08:39→20:09)
[2019-11-09 10:07] LABS: Calcium 8.2 mg/dL (8.4-10.2); Potassium 5.2 mmol/L (3.5-5.1)
[2019-11-09 12:06] VITALS: BMI 52.2
[2019-11-09 12:24] LABS: Glucose,Whole Blood 164 mg/dL (75-99)
--- NOTE | 2019-11-09 13:15 | CDI ---
Documentation Clarification Form Date: 11/09/2019 01:04:48 PM From: Vanessa Farrell RN CCDS Admit Date: 11/07/2019 07:20:00 PM Patient Name: Grecia Mendez Visit Number: [id number] Discharge Date: ATTENTION: The Clinical Documentation Specialists (CDI) and [facility] Coding Staff appreciate your assistance in clarifying documentation. Please respond to the clarification below the line at the bottom and electronically sign. The CDI & [facility] Coding staff will review the response and follow-up if needed. Please note: Queries are made part of the Legal Health Record. If you have any questions, please contact the author of this message via ITS. Dr. Bobby Quinones Heart failure is documented in the H&P 11/07/19 History/Risk Factors: 59-year-old female presents to the ED for evaluation of left leg infection. Medical history Heart Failure; DM; GERD; HLD; HTN; ID; DM2 Clinical Indicators: VS/Pulse OX: 116/60 80 98.7 18 98% ra Echocardiogram Results: 06/01/18 There is borderline concentric left ventricular hypertrophy. Overall left ventricular systolic function is low normal with, an EF between 50-55% Treatment: 11/08 Coreg 12.5 mg bid; Lasix 20mg po daily In your professional opinion, can you please clarify the acuity and type of CHF if known? * Chronic Diastolic Heart Failure * Unable to Determine * Other, please specify (Last Revision: January 2018) unable to determine MTDD
[2019-11-09 17:17] LABS: Glucose,Whole Blood 128 mg/dL (75-99)
[2019-11-09 20:10] LABS: Glucose,Whole Blood 198 mg/dL (75-99)
[2019-11-09 20:10] LABS: Glucose,Whole Blood 206 mg/dL (75-99)
[2019-11-09] MEDS: INSULIN DETEMIR (LEVEMIR) 100 UNIT/ML SYR SQ SCH (21:45)
--- NOTE | 2019-11-09 22:11 | P.PN ---
Progress Note - Text Progress Note Date: 11/09/19 Interval history: This is a patient with chronic lower extremity leg wounds that followed by Dr. Acuña at the wound Center. Patient presents with worsening wounds with drainage and oozing. Infected appearing. Admitted for the same. Today-sitting up in bed. No new issues. Did tolerate her diet. Pain is controlled. Review of systems: Was done for constitutional, cardiovascular, GI, pulmonary. relevant finding as above Active Medications Acetaminophen (Tylenol Tab) 650 mg PO Q6HR PRN PRN Reason: Mild Pain or Fever > 100.5 Last Admin: 11/08/19 23:49 Dose: 650 mg Documented by: Aspirin (Aspirin) 81 mg PO DAILY [facility] Last Admin: 11/09/19 08:25 Dose: 81 mg Documented by: Budesonide/Formoterol Fumarate (Symbicort 160-4.5 Mcg Inhaler) 2 puff INHALATION RT-BID [facility] Last Admin: 11/09/19 20:09 Dose: 2 puff Documented by: Carvedilol (Coreg) 12.5 mg PO BID-W/MEALS [facility] Last Admin: 11/09/19 17:18 Dose: 12.5 mg Documented by: Clopidogrel Bisulfate (Plavix) 75 mg PO DAILY [facility] Last Admin: 11/09/19 08:25 Dose: 75 mg Documented by: Enoxaparin Sodium (Lovenox) 40 mg SQ DAILY [facility] Last Admin: 11/09/19 08:25 Dose: 40 mg Documented by: Furosemide (Lasix) 20 mg PO DAILY [facility] Last Admin: 11/09/19 08:25 Dose: 20 mg Documented by: Piperacillin Sod/Tazobactam (Sod 3.375 gm/ Sodium Chloride) 100 mls @ 25 mls/hr IVPB Q8HR [facility] Last Admin: 11/09/19 16:02 Dose: 25 mls/hr Documented by: Insulin Aspart (Novolog) 0 unit SQ AC-TID [facility]; Protocol Last Admin: 11/09/19 17:17 Dose: Not Given Documented by: Insulin Detemir (Levemir) 10 unit SQ HS [facility] Last Admin: 11/09/19 21:45 Dose: 10 unit Documented by: Naloxone HCl (Narcan) 0.2 mg IV Q2M PRN PRN Reason: Opioid Reversal On examination: VITAL SIGNS: 96.2, 71, 16, 123/63, 95% room air GENERAL APPEARANCE: Sitting up in bed, comfortable HEENT: Normal external appearance of nose and ear. Oral cavity normal EYES: Pupils equal. Conjunctiva normal. NECK: JVD unable to assess,. Mass not palpable. RESPIRATORY: Respiratory effort increased. Diminished breath sounds. CARDIOVASCULAR: First and second sounds normal. Edema present. ABDOMEN: Soft. Liver and spleen not palpable. No tenderness. No mass palpable. PSYCHIATRY: Alert and oriented x3. Mood and affect normal. EXTREMITIES: Dressing is present over the left lower extremity, moist from drainage, very dry skin of the feet with evidence of fungal infection INVESTIGATIONS, reviewed in the clinical context: Potassium 5.2 bun 31 creatinine 1.37 Previous testing White count 7.5 hemoglobin 8.4 potassium 5.3 bun 34 creatinine 1.33 Labs from May 2019 include bun 31 creatinine 1.74 Assessment: -Acute on chronic bilateral lower extremity wounds from venous stasis ulcers, with secondary infection,oozing -Chronic kidney disease stage III from diabetic nephropathy and nephrosclerosis -Morbid obesity BMI 52.2 -Diabetes mellitus type 2 chronically on insulin -GERD -Essential hypertension -Hyperlipidemia -Coronary artery disease with prior history of bypass -Diabetic peripheral neuropathy -Chronic low back pain from arthritis -Chronic medical debility patient is a walker or wheelchair Plan: Continue with IV Zosyn. An Aquacel silver dressing including Yusuf wrap. Other medications to continue.
[2019-11-10] MEDS: ACETAMINOPHEN TAB 325 MG TAB PO PRN
--- NOTE | 2019-11-10 05:59 | PN ---
PROGRESS NOTE DATE OF SERVICE: 11/09/2019. REASON FOR FOLLOWUP: Left leg cellulitis. INTERVAL HISTORY: The patient is currently afebrile. Patient has been breathing comfortably. Patient denies having any chest pain, shortness of breath or cough. No nausea or vomiting. No abdominal pain or any worsening pain to the left leg area. PHYSICAL EXAMINATION: Blood pressure 121/56 with pulse of 70, temperature 96. She is 95% on room air. General description is a middle-aged female lying in bed in no distress. RESPIRATORY SYSTEM: Unlabored breathing, clear to auscultation anteriorly. HEART: S1, S2. Regular rate and rhythm. ABDOMEN: Soft, no tenderness. Left leg swelling redness has slightly decreased no drainage on the dressing. LABS: Creatinine is 1.37. Blood culture has been negative. DIAGNOSTIC IMPRESSION AND PLAN: Patient with left leg venous stasis ulcer with secondary cellulitis. The patient is currently covered with Cefazolin; to continue local care with dry Aquacel Silver dressing and Yusuf wrap. We will evaluate the leg tomorrow. Continue with supportive care. MMODL / IJN: [id number] /
[2019-11-10 06:17] VITALS: BP 109/71; PULSE 76; RESP 16; TEMP 96.3
[2019-11-10 07:19] LABS: Glucose,Whole Blood 182 mg/dL (75-99)
[2019-11-10] MEDS: SYMBICORT 160-4.5 MCG INHALER INHALATION SCH (07:33)
[2019-11-10] MEDS: FUROSEMIDE 20 MG TAB PO SCH (07:38)
[2019-11-10] MEDS: CLOPIDOGREL 75 MG TAB PO SCH (07:39)
[2019-11-10] MEDS: ASPIRIN 81 MG PO SCH (07:39)
[2019-11-10] MEDS: CARVEDILOL 12.5 MG TAB PO SCH (07:39)
[2019-11-10] MEDS: ENOXAPARIN 40 MG/0.4 ML SYRINGE SQ SCH (07:39)
[2019-11-10] MEDS: INSULIN ASPART (NovoLOG) 100 UNIT/ML VIAL SQ SCH ×2 (07:40→12:55)
[2019-11-10 08:25] LABS: Calcium 8.2 mg/dL (8.4-10.2); Potassium 4.9 mmol/L (3.5-5.1)
[2019-11-10 11:28] LABS: Glucose,Whole Blood 165 mg/dL (75-99)
--- NOTE | 2019-11-10 14:01 | PN ---
PROGRESS NOTE DATE OF SERVICE: 11/10/2019 REASON FOR FOLLOWUP: Left lower extremity cellulitis. INTERVAL HISTORY: The patient is currently afebrile. Patient has been breathing comfortably. The patient denies having any chest pain. No shortness of breath or cough. Left leg overall pain and discomfort has improved. No nausea, vomiting or diarrhea. PHYSICAL EXAMINATION: Blood pressure 109/71 with a pulse of 76, temperature 96.3. She is 93% on room air. General description is a middle-aged female, lying in bed in no distress. RESPIRATORY SYSTEM: Unlabored breathing, clear to auscultation anteriorly. HEART: S1, S2. Regular rate and rhythm. ABDOMEN: Soft, no tenderness. EXTREMITIES: Left leg overall swelling and redness has improved. Minimal drainage. LABS: BUN of 28, creatinine is 1.33. DIAGNOSTIC IMPRESSION AND PLAN: Patient with left lower extremity cellulitis. Overall improvement on cefazolin. Plan to finish therapy with oral Keflex 500 mg t.i.d. for 7 days. Local care to continue with dry Aquacel dressing and Yusuf wrap to keep the swelling down. Plan of care was discussed with the admitting physician working for discharge. MMODL / IJN: [id number] /
--- NOTE | 2019-11-12 23:53 | P.DS ---
Providers Date of admission: 11/07/19 19:20 Expected date of discharge: 11/10/19 Attending physician: Bobby Quinones Consults: 11/08/19 14:23 Consult Physician Routine Consulting Provider: Donavan Byrd Consult Reason/Comments: infected leg wounds Do you want consulting provider notified?: Yes Primary care physician: Jason Garcia MD Hospital Course: Hospital course: This is a patient with chronic lower extremity leg wounds that followed by Dr. Acuña at the wound Center. Patient presents with worsening wounds with drainage and oozing. Infected appearing. Admitted for the same.patient was treated IV Zosyn and local wound care. Doing much better. Seen by ID. Today-sitting up in bed. No new issues. Did tolerate her diet. Pain is controlled.discussed with Dr. byrd from ID. Doing well. Patient TO be discharged. Follow up at the wound care clinic. consultation: Dr. Cristóbal byrd from ID On examination: VITAL SIGNS:96.3, 76, 16, 109/71, 91% room air GENERAL APPEARANCE: propped up in bed, comfortable HEENT: Normal external appearance of nose and ear. Oral cavity normal EYES: Pupils equal. Conjunctiva normal. NECK: JVD unable to assess,. Mass not palpable. RESPIRATORY: Respiratory effort increased. Diminished breath sounds. CARDIOVASCULAR: First and second sounds normal. Edema present. ABDOMEN: Soft. Liver and spleen not palpable. No tenderness. No mass palpable. PSYCHIATRY: Alert and oriented x3. Mood and affect normal. EXTREMITIES: Dressing is present over the left lower extremity very dry skin of the feet with evidence of fungal infection INVESTIGATIONS, reviewed in the clinical context: potassium 4.9 bun 28 crit 1.33 Previous testing White count 7.5 hemoglobin 8.4 potassium 5.3 bun 34 creatinine 1.33 Labs from May 2019 include bun 31 creatinine 1.74 Assessment: -Acute on chronic bilateral lower extremity wounds from venous stasis ulcers, with secondary infection,improved -Chronic kidney disease stage III from diabetic nephropathy and nephrosclerosis -Morbid obesity BMI 52.2 -Diabetes mellitus type 2 chronically on insulin -GERD -Essential hypertension -Hyperlipidemia -Coronary artery disease with prior history of bypass -Diabetic peripheral neuropathy -Chronic low back pain from arthritis -Chronic medical debility patient is a walker or wheelchair disposition: Home Patient Condition at Discharge: Stable Plan - Discharge Summary Discharge Rx Participant: No New Discharge Prescriptions: New Cephalexin [Keflex] 500 mg PO Q6HR #28 cap Continue Aspirin 81 mg PO DAILY chew Clopidogrel [Plavix] 75 mg PO DAILY Carvedilol [Coreg] 12.5 mg PO BID Insulin Detemir [Levemir Flextouch] 10 units SQ HS Potassium Chloride ER [K-Dur 20] 20 meq PO DAILY #30 tab INSULIN ASPART (NovoLOG) [NovoLOG (formulary)] 20 unit SQ AC-TID Gabapentin [Neurontin] 300 mg PO HS #3 capsule Ferrous Sulfate [Feosol] 325 mg PO DAILY Furosemide [Lasix] 20 mg PO DAILY Budesonide/Formoterol Fumarate [Symbicort 160-4.5 Mcg Inhaler] 2 puff INHALATION RT-BID Albuterol Inhaler [Ventolin Hfa Inhaler] 2 puff INHALATION RT-QID PRN PRN Reason: Shortness Of Breath Discharge Medication List Aspirin 81 mg PO DAILY chew 06/02/18 [Rx] Carvedilol [Coreg] 12.5 mg PO BID 08/17/18 [History] Clopidogrel [Plavix] 75 mg PO DAILY 08/17/18 [History] Insulin Detemir [Levemir Flextouch] 10 units SQ HS 08/17/18 [History] Potassium Chloride ER [K-Dur 20] 20 meq PO DAILY #30 tab 01/03/19 [Rx] INSULIN ASPART (NovoLOG) [NovoLOG (formulary)] 20 unit SQ AC-TID 02/23/19 [History] Gabapentin [Neurontin] 300 mg PO HS #3 capsule 03/27/19 [Rx] Ferrous Sulfate [Feosol] 325 mg PO DAILY 04/12/19 [History] Albuterol Inhaler [Ventolin Hfa Inhaler] 2 puff INHALATION RT-QID PRN 11/07/19 [History] Budesonide/Formoterol Fumarate [Symbicort 160-4.5 Mcg Inhaler] 2 puff INHALATION RT-BID 11/07/19 [History] Furosemide [Lasix] 20 mg PO DAILY 11/07/19 [History] Cephalexin [Keflex] 500 mg PO Q6HR #28 cap 11/10/19 [Rx] Follow up Appointment(s)/Referral(s): wound center, [Other] - 11/14/19 2:00 pm Jason Garcia MD [Primary Care Provider] - 1-2 days (Office will call to set up appointment ) Patient Instructions/Handouts: Cellulitis (DC) Discharge Disposition: HOME SELF-CARE
== END 2019-11-10 15:24 | disposition home or self-care (01) | DRG 603 ==
LOC: EC 16:01 → 6NMEDSUR 19:20
PROVIDERS: ADMIT Hospitalist; ATTEND Hospitalist
DX: L03.116 Cellulitis of left lower limb (principal); I13.0 Hypertensive heart and chronic kidney disease with heart failure and stage 1 through stage 4 chronic kidney disease, or unspecified chronic kidney disease; E44.0 Moderate protein-calorie malnutrition; Z68.43 Body mass index [BMI] 50.0-59.9, adult; E11.36 Type 2 diabetes mellitus with diabetic cataract; E11.22 Type 2 diabetes mellitus with diabetic chronic kidney disease; E11.42 Type 2 diabetes mellitus with diabetic polyneuropathy; I50.9 Heart failure, unspecified; I83.018 Varicose veins of right lower extremity with ulcer other part of lower leg; I83.028 Varicose veins of left lower extremity with ulcer other part of lower leg; D64.9 Anemia, unspecified; E66.01 Morbid (severe) obesity due to excess calories; N18.3 Chronic kidney disease, stage 3 (moderate); E87.5 Hyperkalemia; L03.115 Cellulitis of right lower limb; I25.10 Atherosclerotic heart disease of native coronary artery without angina pectoris; J44.9 Chronic obstructive pulmonary disease, unspecified; K21.9 Gastro-esophageal reflux disease without esophagitis; E78.5 Hyperlipidemia, unspecified; G89.29 Other chronic pain; M54.5 Low back pain; M19.90 Unspecified osteoarthritis, unspecified site; M06.9 Rheumatoid arthritis, unspecified; K80.20 Calculus of gallbladder without cholecystitis without obstruction; H26.9 Unspecified cataract; R53.81 Other malaise; I25.2 Old myocardial infarction; Z79.82 Long term (current) use of aspirin; Z79.51 Long term (current) use of inhaled steroids; Z79.02 Long term (current) use of antithrombotics/antiplatelets; Z79.4 Long term (current) use of insulin; Z79.899 Other long term (current) drug therapy; Z87.891 Personal history of nicotine dependence; Z86.19 Personal history of other infectious and parasitic diseases; Z86.14 Personal history of Methicillin resistant Staphylococcus aureus infection; Z98.891 History of uterine scar from previous surgery; Z95.1 Presence of aortocoronary bypass graft; Z90.49 Acquired absence of other specified parts of digestive tract; Z98.890 Other specified postprocedural states; Z86.59 Personal history of other mental and behavioral disorders; Z86.79 Personal history of other diseases of the circulatory system; Z71.3 Dietary counseling and surveillance; Z91.040 Latex allergy status; Z88.8 Allergy status to other drugs, medicaments and biological substances; Z91.048 Other nonmedicinal substance allergy status; Z82.3 Family history of stroke; Z83.3 Family history of diabetes mellitus; Z82.49 Family history of ischemic heart disease and other diseases of the circulatory system; Z84.1 Family history of disorders of kidney and ureter; Z82.0 Family history of epilepsy and other diseases of the nervous system
CPT/HCPCS: 36415; 80048; 80053; 83605; 85025; 85027; 87040; 87070; 87075; 87205; 94640; 96365; 96366; 96367; 96372; 96375; 99285

== ENCOUNTER 2020-02-16 15:03 | Inpatient (IN) | payer MEDICARE, OTHER ==
[2020-02-16] MEDS ORDERED: cefTRIAXone IN SWFI 1,000 MG/10 ML SYRINGE IVP STA (15:22)
[2020-02-16] MEDS ORDERED: VANCOMYCIN IV PER PHARMACY 1 EACH MISC MISCELLANE PRN (15:23)
--- NOTE | 2020-02-16 15:31 | ED ---
General Adult HPI - General Chief complaint: Extremity Problem,Nontraumatic Stated complaint: feet swelling Time Seen by Provider: 02/16/20 15:10 Source: patient, RN notes reviewed, old records reviewed Mode of arrival: EMS Limitations: no limitations - History of Present Illness Initial comments: 59-year-old female presenting for evaluation of bilateral lower extremity swelling, drainage, and redness. She states that she has had chronic lower extremity problems with recurrent cellulitis in the past. She states that she has been on an antibiotic, she is uncertain which antibiotic for the past 2 weeks and has had persistent drainage and worsening swelling with pain and erythema. She denies fever or chills or systemic symptoms. She denies chest pain or dyspnea. Denies cough. - Related Data Home Medications Medication Instructions Recorded Confirmed Carvedilol [Coreg] 12.5 mg PO BID 08/17/18 11/07/19 Clopidogrel [Plavix] 75 mg PO DAILY 08/17/18 11/07/19 Insulin Detemir [Levemir Flextouch] 10 units SQ HS 08/17/18 11/07/19 INSULIN ASPART (NovoLOG) [NovoLOG 20 unit SQ AC-TID 02/23/19 11/07/19 (formulary)] Ferrous Sulfate [Feosol] 325 mg PO DAILY 04/12/19 11/07/19 Albuterol Inhaler (Mhu) [Ventolin 2 puff INHALATION RT-QID PRN 11/07/19 11/07/19 Hfa Inhaler (Mhu)] Budesonide/Formoterol Fumarate 2 puff INHALATION RT-BID 11/07/19 11/07/19 [Symbicort 160-4.5 Mcg Inhaler] Furosemide [Lasix] 20 mg PO DAILY 11/07/19 11/07/19 Previous Rx's Medication Instructions Recorded Aspirin 81 mg PO DAILY chew 06/02/18 Potassium Chloride ER [K-Dur 20] 20 meq PO DAILY #30 tab 01/03/19 Gabapentin [Neurontin] 300 mg PO HS #3 capsule 03/27/19 Cephalexin [Keflex] 500 mg PO Q6HR #28 cap 11/10/19 Allergies Allergy/AdvReac Type Severity Reaction Status Date / Time collagenase Clostridium Allergy Unknown Verified 02/16/20 15:15 histolyticu [From Santyl] latex Allergy Rash/Hives Verified 02/16/20 15:15 pollen extracts AdvReac Mild Itching Verified 02/16/20 15:15 Review of Systems ROS Statement: Those systems with pertinent positive or pertinent negative responses have been documented in the HPI. ROS Other: All systems not noted in ROS Statement are negative. Past Medical History Past Medical History: Coronary Artery Disease (CAD), Heart Failure, Diabetes Mellitus, GERD/Reflux, Hyperlipidemia, Hypertension, Myocardial Infarction ([place]), Osteoarthritis (OA), Renal Disease, Rheumatoid Arthritis (RA), Skin Disorder, Vascular Disorder Additional Past Medical History / Comment(s): Chronic bilateral venous stasis ulcers, pt states she currently has L lower leg wound being tx at [facility] and that R lower leg wound nearly healed, bilateral lower leg cellulitis, past bilateral heel wounds, IDDM type II, neuropathy bilateral legs/feet, CKD stage III, Chronic back and bilateral leg pain, bilateral cataracts, gallstones, rash on bilateral shoulders/chest and L leg, R breast slightly enlarged-punch skin bx negative. Last Myocardial Infarction Date:: 2011 History of Any Multi-Drug Resistant Organisms: ESBL, MRSA Date of last positivie culture/infection: 01/26/20 ESBL / 03/20/19 MRSA MDRO Source:: ESBL URINE/ MRSA BLOOD Past Surgical History: Section Additional Past Surgical History / Comment(s): 2011 CABG 2 vessel, D&C, C- sections x 2, bilateral lower leg/heels debrided. Past Anesthesia/Blood Transfusion Reactions: No Reported Reaction Additional Past Anesthesia/Blood Transfusion Reaction / Comment(s): clausterphobia Past Psychological History: Depression Smoking Status: Former smoker Past Alcohol Use History: None Reported Past Drug Use History: None Reported - Past Family History Mother Additional Family Medical History / Comment(s): anuerysm Father Family Medical History: CVA/TIA, Diabetes Mellitus, Myocardial Infarction ([place]) Sister(s) Additional Family Medical History / Comment(s): one sister had "hole in her heart" and a kidney transplant and another sister had ms. General Exam Limitations: no limitations General appearance: alert, in no apparent distress Head exam: Present: atraumatic, normocephalic Eye exam: Present: normal appearance, PERRL ENT exam: Present: normal exam Neck exam: Present: normal inspection. Absent: tenderness, meningismus Respiratory exam: Present: normal lung sounds bilaterally. Absent: respiratory distress, wheezes Cardiovascular Exam: Present: regular rate, normal rhythm GI/Abdominal exam: Present: soft. Absent: distended, tenderness Rectal exam: Present: deferred Extremities exam: Present: pedal edema, other (Bilateral lower extremity cellulitis, erythema, serous sanguinous drainage.) Neurological exam: Present: alert. Absent: motor sensory deficit Psychiatric exam: Present: normal affect, normal mood Skin exam: Present: warm. Absent: cyanosis, diaphoretic Course Vital Signs 02/16/20 15:10 Temperature 98.5 F Pulse Rate 99 Respiratory 20 Rate Blood Pressure 121/64 O2 Sat by Pulse 98 Oximetry Medical Decision Making - Medical Decision Making 59-year-old female with bilateral lower extremity cellulitis, chronic venous stasis, drainage. Patient has failed outpatient antibiotics and will require admission for IV antibiotics. She hasn't no leukocytosis, hemoglobin is low but is stable for this patient. No lactic acidosis. She has been admitted to [facility] [place] [facility]. - Lab Data Result diagrams: 02/16/20 15:55 02/16/20 15:55 Lab Results 02/16/20 02/16/20 02/16/20 Range/Units 15:55 15:55 15:55 WBC 7.9 (3.8-10.6) k/uL RBC 3.42 L (3.80-5.40) m/uL Hgb 9.1 L (11.4-16.0) gm/dL Hct 30.7 L (34.0-46.0) % MCV 89.7 (80.0-100.0) fL MCH 26.7 (25.0-35.0) pg MCHC 29.7 L (31.0-37.0) g/dL RDW 16.6 H (11.5-15.5) % Plt Count 281 (150-450) k/uL Neutrophils % 75 % Lymphocytes % 10 % Monocytes % 6 % Eosinophils % 7 % Basophils % 1 % Neutrophils # 5.9 (1.3-7.7) k/uL Lymphocytes # 0.8 L (1.0-4.8) k/uL Monocytes # 0.5 (0-1.0) k/uL Eosinophils # 0.6 (0-0.7) k/uL Basophils # 0.0 (0-0.2) k/uL Hypochromasia Marked Anisocytosis Slight Sodium 138 (137-145) mmol/L Potassium 5.2 H (3.5-5.1) mmol/L Chloride 107 (98-107) mmol/L Carbon Dioxide 23 (22-30) mmol/L Anion Gap 8 mmol/L BUN 34 H (7-17) mg/dL Creatinine 1.14 H (0.52-1.04) mg/dL Est GFR (CKD-EPI)AfAm 61 (>60 ml/min/1.73 sqM) Est GFR (CKD-EPI)NonAf 53 (>60 ml/min/1.73 sqM) Glucose 153 H (74-99) mg/dL Plasma Lactic Acid Sylvester 1.3 (0.7-2.0) mmol/L Calcium 8.9 (8.4-10.2) mg/dL Total Bilirubin 0.7 (0.2-1.3) mg/dL AST 15 (14-36) U/L ALT 7 (4-34) U/L Alkaline Phosphatase 125 (38-126) U/L Total Protein 7.0 (6.3-8.2) g/dL Albumin 3.4 L (3.5-5.0) g/dL Coronavirus (PCR) (Not Detectd) 02/16/20 Range/Units 15:55 WBC (3.8-10.6) k/uL RBC (3.80-5.40) m/uL Hgb (11.4-16.0) gm/dL Hct (34.0-46.0) % MCV (80.0-100.0) fL MCH (25.0-35.0) pg MCHC (31.0-37.0) g/dL RDW (11.5-15.5) % Plt Count (150-450) k/uL Neutrophils % % Lymphocytes % % Monocytes % % Eosinophils % % Basophils % % Neutrophils # (1.3-7.7) k/uL Lymphocytes # (1.0-4.8) k/uL Monocytes # (0-1.0) k/uL Eosinophils # (0-0.7) k/uL Basophils # (0-0.2) k/uL Hypochromasia Anisocytosis Sodium (137-145) mmol/L Potassium (3.5-5.1) mmol/L Chloride (98-107) mmol/L Carbon Dioxide (22-30) mmol/L Anion Gap mmol/L BUN (7-17) mg/dL Creatinine (0.52-1.04) mg/dL Est GFR (CKD-EPI)AfAm (>60 ml/min/1.73 sqM) Est GFR (CKD-EPI)NonAf (>60 ml/min/1.73 sqM) Glucose (74-99) mg/dL Plasma Lactic Acid Sylvester (0.7-2.0) mmol/L Calcium (8.4-10.2) mg/dL Total Bilirubin (0.2-1.3) mg/dL AST (14-36) U/L ALT (4-34) U/L Alkaline Phosphatase (38-126) U/L Total Protein (6.3-8.2) g/dL Albumin (3.5-5.0) g/dL Coronavirus (PCR) Not Detected (Not Detectd) Disposition Clinical Impression: Cellulitis, leg, Cellulitis of both lower extremities Disposition: ADMITTED IP TO THIS [facility] Condition: Stable Is patient prescribed a controlled substance at d/c from ED?: No Referrals: Jason Garcia MD [Primary Care Provider] - 1-2 days Decision to Admit Reason: Admit from EC Decision Date: 02/16/20 Decision Time: 17:08
[2020-02-16 16:15] LABS: Anisocytosis Slight; Basophils % (A) 1 %; Eosinophils # (A) 0.6 k/uL (0-0.7); Eosinophils % (A) 7 %; HCT 30.7 % (34.0-46.0); HGB 9.1 gm/dL (11.4-16.0); Hypochromasia Marked; Lymphocytes # (A) 0.8 k/uL (1.0-4.8); Lymphocytes % (A) 10 %; MCH 26.7 pg (25.0-35.0); MCHC 29.7 g/dL (31.0-37.0); MCV 89.7 fL (80.0-100.0); Mean Platelet Volume 7.2; Monocytes # (A) 0.5 k/uL (0-1.0); Monocytes % (A) 6 %; Neutrophils # (A) 5.9 k/uL (1.3-7.7); Neutrophils % (A) 75 %; Platelet Count 281 k/uL (150-450); RBC 3.42 m/uL (3.80-5.40); RDW 16.6 % (11.5-15.5); WBC 7.9 k/uL (3.8-10.6)
[2020-02-16 16:26] LABS: Albumin 3.4 g/dL (3.5-5.0); Calcium 8.9 mg/dL (8.4-10.2); Potassium 5.2 mmol/L (3.5-5.1); Total Bilirubin 0.7 mg/dL (0.2-1.3)
[2020-02-16] MEDS ORDERED: NALOXONE 0.4 MG/ML 1 ML VIAL IV PRN (16:53)
[2020-02-16] MEDS ORDERED: ONDANSETRON 4 MG/2 ML VIAL IVP PRN (17:19)
--- NOTE | 2020-02-16 17:30 | P.HPIM ---
History of Present Illness H&P Date: 02/16/20 Chief Complaint: Worsening redness and swelling This is a 59-year-old female with complex past medical history noted below significant for morbid obesity and bilateral lower extremity venous stasis with recurrent cellulitis that presented to the emergency room with worsening swelling and redness of both legs. Patient lives in a alf and was recently started on antibiotic for worsening cellulitis and UTI. Patient does not recall what kind of antibiotic she was started on. She said that for the past week she finished antibiotic course today with minimal improvement actually also legs are getting worse in terms of redness and drainage. Patient was evaluated in the ER and was found to have no evidence of sepsis. She will be admitted to the hospital for further management. Review of Systems Review of system: 14 points review of systems were obtained and were negative except to what were mentioned in the HPI. Past Medical History Past Medical History: Coronary Artery Disease (CAD), Heart Failure, Diabetes Mellitus, GERD/Reflux, Hyperlipidemia, Hypertension, Myocardial Infarction ([place]), Osteoarthritis (OA), Renal Disease, Rheumatoid Arthritis (RA), Skin Disorder, Vascular Disorder Additional Past Medical History / Comment(s): Chronic bilateral venous stasis u lcers, pt states she currently has L lower leg wound being tx at [facility] and that R lower leg wound nearly healed, bilateral lower leg cellulitis, past bilateral heel wounds, IDDM type II, neuropathy bilateral legs/feet, CKD stage III, Chronic back and bilateral leg pain, bilateral cataracts, gallstones, rash on bilateral shoulders/chest and L leg, R breast slightly enlarged-punch skin bx negative. Last Myocardial Infarction Date:: 2011 History of Any Multi-Drug Resistant Organisms: ESBL, MRSA Date of last positivie culture/infection: 01/26/20 ESBL / 03/20/19 MRSA MDRO Source:: ESBL URINE/ MRSA BLOOD Past Surgical History: Section Additional Past Surgical History / Comment(s): 2011 CABG 2 vessel, D&C, C- sections x 2, bilateral lower leg/heels debrided. Past Anesthesia/Blood Transfusion Reactions: No Reported Reaction Additional Past Anesthesia/Blood Transfusion Reaction / Comment(s): clausterphobia Past Psychological History: Depression Smoking Status: Former smoker Past Alcohol Use History: None Reported Past Drug Use History: None Reported - Past Family History Mother Additional Family Medical History / Comment(s): anuerysm Father Family Medical History: CVA/TIA, Diabetes Mellitus, Myocardial Infarction ([place]) Sister(s) Additional Family Medical History / Comment(s): one sister had "hole in her heart" and a kidney transplant and another sister had ms. Medications and Allergies Home Medications Medication Instructions Recorded Confirmed Type Aspirin 81 mg PO DAILY chew 06/02/18 11/07/19 Rx Carvedilol [Coreg] 12.5 mg PO BID 08/17/18 11/07/19 History Clopidogrel [Plavix] 75 mg PO DAILY 08/17/18 11/07/19 History Insulin Detemir [Levemir Flextouch] 10 units SQ HS 08/17/18 11/07/19 History Potassium Chloride ER [K-Dur 20] 20 meq PO DAILY #30 tab 01/03/19 11/07/19 Rx INSULIN ASPART (NovoLOG) [NovoLOG 20 unit SQ AC-TID 02/23/19 11/07/19 History (formulary)] Gabapentin [Neurontin] 300 mg PO HS #3 capsule 03/27/19 11/07/19 Rx Ferrous Sulfate [Feosol] 325 mg PO DAILY 04/12/19 11/07/19 History Albuterol Inhaler (Mhu) [Ventolin 2 puff INHALATION RT-QID PRN 11/07/19 11/07/19 History Hfa Inhaler (Mhu)] Budesonide/Formoterol Fumarate 2 puff INHALATION RT-BID 11/07/19 11/07/19 History [Symbicort 160-4.5 Mcg Inhaler] Furosemide [Lasix] 20 mg PO DAILY 11/07/19 11/07/19 History Cephalexin [Keflex] 500 mg PO Q6HR #28 cap 11/10/19 Rx Allergies Allergy/AdvReac Type Severity Reaction Status Date / Time collagenase Clostridium Allergy Unknown Verified 02/16/20 15:15 histolyticu [From Santyl] latex Allergy Rash/Hives Verified 02/16/20 15:15 pollen extracts AdvReac Mild Itching Verified 02/16/20 15:15 Physical Exam Vitals: Vital Signs Temp Pulse Resp BP Pulse Ox 02/16/20 15:10 98.5 F 99 20 121/64 98 Intake and Output 02/16/20 02/16/20 02/16/20 06:59 14:59 22:59 Other: Weight 145.15 kg General: The patient is awake and alert, in no distress Eye: there is normal conjunctiva bilaterally. Neck: The neck is supple, there is no JVD. Cardiovascular: Normal S1-S2, no S3-S4, no murmurs. Respiratory: Lungs clear to auscultation bilaterally Gastrointestinal: Abdomen is obese but soft, nontender Musculoskeletal: There is bilateral lower extremity swelling with chronic venous stasis changes and significant erythema extending up to the midshin with significant drainage and weeping of skin Neurological:. Speech is normal. Skin: Skin is warm and dry Results CBC & Chem 7: 02/16/20 15:55 02/16/20 15:55 Labs: Abnormal Lab Results - Last 24 Hours (Table) 02/16/20 02/16/20 Range/Units 15:55 15:55 RBC 3.42 L (3.80-5.40) m/uL Hgb 9.1 L (11.4-16.0) gm/dL Hct 30.7 L (34.0-46.0) % MCHC 29.7 L (31.0-37.0) g/dL RDW 16.6 H (11.5-15.5) % Lymphocytes # 0.8 L (1.0-4.8) k/uL Potassium 5.2 H (3.5-5.1) mmol/L BUN 34 H (7-17) mg/dL Creatinine 1.14 H (0.52-1.04) mg/dL Glucose 153 H (74-99) mg/dL Albumin 3.4 L (3.5-5.0) g/dL Assessment and Plan Assessment: 1. cellulitis, involving both lower extremities: Started on broad-spectrum antibiotic with IV vancomycin and cefazolin. Infectious disease consulted. No evidence of sepsis. 2. Chronic venous insufficiency with worsening lower extremity swelling and edema: We'll obtain ultrasound to rule out DVT. 3. Type 2 diabetes, continue home dose of insulin sliding scale 4. History of coronary artery disease with history of CABG, continue medical management 5. Essential hypertension, blood pressure within acceptable range 6. Morbid obesity, counseled extensively regarding lifestyle and diet modification 7. DVT prophylaxis subcu heparin Today, I reviewed her medication list and lab work results. Awaiting pharmacy to confirm home medication for reconsultation. Continue current management. Awaiting infectious disease evaluation. Wound care and dressing change as directed. Repeat lab work in the morning.
[2020-02-16] MEDS: VANCOMYCIN 2,500 MG in SODIUM CHLORIDE 0.9% 500 ML 500 ML IVPB ONE ×2 (17:51→18:30)
[2020-02-16] MEDS: INSULIN ASPART (NovoLOG) 100 UNIT/ML VIAL SQ SCH ×2 (17:58→21:30)
[2020-02-16] MEDS: HEPARIN SODIUM,PORCINE 5,000 UNIT/ML 1 ML VIAL SQ SCH ×2 (17:59→18:51)
[2020-02-16 21:20] LABS: Glucose,Whole Blood 127 mg/dL (75-99)
[2020-02-16] MEDS: CARVEDILOL 12.5 MG TAB PO SCH (23:22)
[2020-02-16] MEDS: ACETAMINOPHEN TAB 325 MG TAB PO PRN (23:22)
[2020-02-16] MEDS: GABAPENTIN 300 MG CAP PO SCH (23:22)
[2020-02-16] MEDS: INSULIN DETEMIR (LEVEMIR) 100 UNIT/ML SYR SQ SCH (23:27)
[2020-02-16 23:31] LABS: Glucose,Whole Blood 134 mg/dL (75-99)
[2020-02-17] MEDS: HEPARIN SODIUM,PORCINE 5,000 UNIT/ML 1 ML VIAL SQ SCH ×3 (00:16→16:07)
[2020-02-17 07:05] LABS: Glucose,Whole Blood 148 mg/dL (75-99)
[2020-02-17 08:13] LABS: Anisocytosis Slight; Basophils % (A) 1 %; Eosinophils # (A) 0.5 k/uL (0-0.7); Eosinophils % (A) 7 %; HCT 28.8 % (34.0-46.0); HGB 8.5 gm/dL (11.4-16.0); Hypochromasia Marked; Lymphocytes # (A) 0.6 k/uL (1.0-4.8); Lymphocytes % (A) 9 %; MCH 26.7 pg (25.0-35.0); MCHC 29.3 g/dL (31.0-37.0); MCV 90.9 fL (80.0-100.0); Mean Platelet Volume 7.2; Monocytes # (A) 0.4 k/uL (0-1.0); Monocytes % (A) 6 %; Neutrophils # (A) 4.9 k/uL (1.3-7.7); Neutrophils % (A) 75 %; Platelet Count 245 k/uL (150-450); RBC 3.17 m/uL (3.80-5.40); RDW 16.7 % (11.5-15.5); WBC 6.5 k/uL (3.8-10.6)
[2020-02-17] MEDS: CARVEDILOL 12.5 MG TAB PO SCH (08:18)
[2020-02-17] MEDS: INSULIN ASPART (NovoLOG) 100 UNIT/ML VIAL SQ SCH ×4 (08:18→20:28)
[2020-02-17] MEDS: PANTOPRAZOLE 40 MG TABLET PO SCH (08:19)
[2020-02-17] MEDS: CLOPIDOGREL 75 MG TAB PO SCH (08:19)
[2020-02-17 08:25] LABS: Albumin 2.9 g/dL (3.5-5.0); Calcium 8.6 mg/dL (8.4-10.2); Potassium 5.3 mmol/L (3.5-5.1); Total Bilirubin 0.5 mg/dL (0.2-1.3); Total Protein 6.5 g/dL (6.3-8.2)
[2020-02-17] MEDS ORDERED: CARVEDILOL 12.5 MG TAB PO SCH (09:00)
[2020-02-17] MEDS ORDERED: FUROSEMIDE 20 MG TAB PO SCH (09:00)
[2020-02-17 09:33] VITALS: BMI 54.9
[2020-02-17] MEDS ORDERED: SODIUM POLYSTYRENE SULFONATE 15 GM/60 ML BOTTLE PO STA (09:46)
[2020-02-17] MEDS ORDERED: SODIUM CHLORIDE 0.9% 1,000 ML IV ONE (09:50)
[2020-02-17] MEDS ORDERED: CARVEDILOL 6.25 MG TAB PO STA (09:52)
--- NOTE | 2020-02-17 10:07 | P.PN ---
Subjective Progress Note Date: 02/17/20 Principal diagnosis: CELLULITIS Patient seen and examined at bedside while getting her ultrasound of the lower extremities. Patient denies chest pain shortness of breath nausea vomiting fevers or chills. Repeat laboratory data shows elevated potassium level of 5.3 compared to yesterday of 5.2. Kayexalate will be given immediately and potassium will be rechecked at 2:00pm. Patient's blood pressures also noted to be below normal at 94/52. Lasix will be stopped and Coreg will be adjusted with parameters. One liter bolus of normal saline will be given today with slow IV hydration. This is a 59-year-old female with complex past medical history noted below significant for morbid obesity and bilateral lower extremity venous stasis with recurrent cellulitis that presented to the emergency room with worsening swelling and redness of both legs. Patient lives in a usp and was recently started on antibiotic for worsening cellulitis and UTI. Patient does not recall what kind of antibiotic she was started on. She said that for the past week she finished antibiotic course today with minimal improvement actually also legs are getting worse in terms of redness and drainage. Objective - Vital Signs Vital signs: Vital Signs Temp 97.9 F 02/17/20 08:15 Pulse 84 02/17/20 08:15 Resp 17 02/17/20 08:15 BP 94/52 02/17/20 08:15 Pulse Ox 96 02/17/20 08:15 Intake & Output 02/16/20 02/17/20 02/17/20 18:59 06:59 18:59 Intake Total 550 Balance 550 Weight 145.15 kg 145.15 kg Intake: Intake, IV Titration 550 Amount Vancomycin 2,500 mg In 500 Sodium Chloride 0.9% 500 ml 500 ml @ 167 mls/hr IVPB Q24H DAVIE Rx#: [id number] ceFAZolin 2 gm In Sodium 50 Chloride 0.9% 50 ml @ 100 mls/hr IVPB Q8HR DAVIE Rx# :[id number] Other: Voiding Method Incontinent Incontinent # Voids 0 - Exam General: [non toxic], [no distress], [appears at stated age] Derm: [warm], [dry] Head: [atraumatic], [normocephalic], [symmetric] Eyes: [EOMI], [no lid lag], [anicteric sclera] Mouth: [no lip lesion], [mucus membranes moist] Cardiovascular: [S1S2 reg], [no murmur], [positive posterior tibial pulse bilateral], Lungs: [CTA bilateral], [no rhonchi, no rales] , [no accessory muscle use] Abdominal: [soft], [ nontender to palpation], [no guarding], [no appreciable organomegaly] Ext: [no gross muscle atrophy], [b/l LE edema with erythema ], [no contractures] Neuro: [ CN II-XI grossly intact], [no focal neuro deficits] Psych: [Alert], [oriented], [appropriate affect] - Labs CBC & Chem 7: 02/17/20 07:38 02/17/20 07:38 Labs: Abnormal Lab Results - Last 24 Hours (Table) 02/16/20 02/16/20 02/16/20 Range/Units 15:55 15:55 21:15 RBC 3.42 L (3.80-5.40) m/uL Hgb 9.1 L (11.4-16.0) gm/dL Hct 30.7 L (34.0-46.0) % MCHC 29.7 L (31.0-37.0) g/dL RDW 16.6 H (11.5-15.5) % Lymphocytes # 0.8 L (1.0-4.8) k/uL Potassium 5.2 H (3.5-5.1) mmol/L Chloride (98-107) mmol/L Carbon Dioxide (22-30) mmol/L BUN 34 H (7-17) mg/dL Creatinine 1.14 H (0.52-1.04) mg/dL Glucose 153 H (74-99) mg/dL POC Glucose (mg/dL) 127 H (75-99) mg/dL Albumin 3.4 L (3.5-5.0) g/dL 02/16/20 02/17/20 02/17/20 Range/Units 23:27 07:04 07:38 RBC 3.17 L (3.80-5.40) m/uL Hgb 8.5 L (11.4-16.0) gm/dL Hct 28.8 L (34.0-46.0) % MCHC 29.3 L (31.0-37.0) g/dL RDW 16.7 H (11.5-15.5) % Lymphocytes # 0.6 L (1.0-4.8) k/uL Potassium (3.5-5.1) mmol/L Chloride (98-107) mmol/L Carbon Dioxide (22-30) mmol/L BUN (7-17) mg/dL Creatinine (0.52-1.04) mg/dL Glucose (74-99) mg/dL POC Glucose (mg/dL) 134 H 148 H (75-99) mg/dL Albumin (3.5-5.0) g/dL 02/17/20 Range/Units 07:38 RBC (3.80-5.40) m/uL Hgb (11.4-16.0) gm/dL Hct (34.0-46.0) % MCHC (31.0-37.0) g/dL RDW (11.5-15.5) % Lymphocytes # (1.0-4.8) k/uL Potassium 5.3 H (3.5-5.1) mmol/L Chloride 112 H (98-107) mmol/L Carbon Dioxide 20 L (22-30) mmol/L BUN 33 H (7-17) mg/dL Creatinine 1.12 H (0.52-1.04) mg/dL Glucose 131 H (74-99) mg/dL POC Glucose (mg/dL) (75-99) mg/dL Albumin 2.9 L (3.5-5.0) g/dL Assessment and Plan Assessment: 1. Bilateral lower extremity cellulitis -Continue IV antibiotics -Consult infectious disease -Consult wound care -Await ultrasound results 2. Hyperkalemia likely caused by renal insufficiency -Kayexalate stat -Recheck potassium level in 4 hours 3. Mild hypotension secondary to #1 with blood pressure medications -1 L normal saline bolus provided with continued slow IV hydration -Discontinue Lasix -Decrease Coreg to 6.25 mg by mouth twice a day with parameters 4. Normocytic anemia likely chronic -Check iron studies -Monitor CBC 5. Type 2 diabetes -continue sliding scale 6. History of coronary artery artery disease with history of CABG continue medical management 7. Morbid obesity 8. GI DVT prophylaxis 9. A.m. labs 30 minutes spent coordinating care and counseling patient.
[2020-02-17] MEDS: SODIUM CHLORIDE 0.9% 1,000 ML IV SCH ×2 (11:09→22:59)
[2020-02-17 11:33] LABS: Glucose,Whole Blood 141 mg/dL (75-99)
--- NOTE | 2020-02-17 14:08 | US ---
EXAMINATION TYPE: US venous doppler duplex LE DATE OF EXAM: 02/17/2020 9:42 AM COMPARISON: US 02/23/2019 CLINICAL HISTORY: r/o DVT. Extremely limited and difficult exam due to patient body habitus and pain. Patient has red, raw skin from her knees down to her ankles bilaterally. Patient did not want me to touch behind her knee due to pain from her skin, therefore popliteal vein is not imaged. No history o f DVT SIDE PERFORMED: Bilateral TECHNIQUE: The lower extremity deep venous system is examined utilizing real time linear array sonog yaakov with graded compression, doppler sonography and color-flow sonography. VESSELS IMAGED: External Iliac Vein (EIV) Common Femoral Vein Deep Femoral Vein Greater Saphenous Vein * Femoral Vein Right Leg: Appears negative for DVT as visualized Left Leg: Appears negative for DVT as visualized IMPRESSION: No evidence for DVT.
[2020-02-17 14:12] LABS: Anisocytosis Slight; Basophils % (A) 1 %; Eosinophils # (A) 0.4 k/uL (0-0.7); Eosinophils % (A) 7 %; HCT 29.8 % (34.0-46.0); HGB 8.7 gm/dL (11.4-16.0); Hypochromasia Marked; Lymphocytes # (A) 0.7 k/uL (1.0-4.8); Lymphocytes % (A) 11 %; MCH 26.9 pg (25.0-35.0); MCHC 29.4 g/dL (31.0-37.0); MCV 91.7 fL (80.0-100.0); Mean Platelet Volume 8.3; Monocytes # (A) 0.4 k/uL (0-1.0); Monocytes % (A) 6 %; Neutrophils # (A) 4.4 k/uL (1.3-7.7); Neutrophils % (A) 73 %; Platelet Count 239 k/uL (150-450); RBC 3.25 m/uL (3.80-5.40); RDW 16.6 % (11.5-15.5)
[2020-02-17 14:20] LABS: ALT <6 U/L (4-34); AST 14 U/L (14-36); African American GFR (CKD) 50 (>60 ml/min/1.73 sqM); Alkaline Phosphatase 97 U/L (38-126); Anion Gap 8 mmol/L; Blood Urea Nitrogen 33 mg/dL (7-17); Calcium 8.3 mg/dL (8.4-10.2); Carbon Dioxide 23 mmol/L (22-30); Chloride 108 mmol/L (98-107); Glucose 143 mg/dL (74-99); Non-African American GFR(CKD) 43 (>60 ml/min/1.73 sqM); Potassium 5.1 mmol/L (3.5-5.1); Sodium 139 mmol/L (137-145); Total Bilirubin 0.6 mg/dL (0.2-1.3); Total Protein 6.6 g/dL (6.3-8.2)
[2020-02-17] MEDS ORDERED: VANCOMYCIN 2,500 MG in SODIUM CHLORIDE 0.9% 500 ML 500 ML IVPB SCH (16:00)
[2020-02-17] MEDS: CARVEDILOL 6.25 MG TAB PO SCH (17:02)
[2020-02-17 17:13] LABS: Glucose,Whole Blood 129 mg/dL (75-99)
[2020-02-17] MEDS ORDERED: NYSTAT-TRIAMCIN 100,000-0.1 UNIT/GM-% CREAM 30 GM TUBE TOPICAL SCH (17:30)
[2020-02-17 20:22] LABS: Glucose,Whole Blood 201 mg/dL (75-99)
[2020-02-17] MEDS: INSULIN DETEMIR (LEVEMIR) 100 UNIT/ML SYR SQ SCH (20:28)
[2020-02-17] MEDS: GABAPENTIN 300 MG CAP PO SCH (20:28)
[2020-02-17] MEDS: ACETAMINOPHEN TAB 325 MG TAB PO PRN (20:32)
[2020-02-17] MEDS ORDERED: GABAPENTIN 300 MG CAP PO SCH (21:00)
[2020-02-17] MEDS ORDERED: INSULIN DETEMIR (LEVEMIR) 100 UNIT/ML SYR SQ SCH (21:00)
[2020-02-17] MEDS: NYSTATIN 100,000UNIT/GM CREAM 30 GM TUBE TOPICAL SCH (21:02)
[2020-02-17] MEDS: COLLAGENASE 250 UNIT/GM OINTMENT 30 GM TUBE TOPICAL SCH ×2 (21:22→22:26)
--- NOTE | 2020-02-17 23:48 | P.CONS ---
History of Present Illness - Reason for Consult Consult date: 02/17/20 leg cellulitis Requesting physician: Lashawn Carlton - Chief Complaint bilateral leg swelling and redness x 2 weeks - History of Present Illness Patient is a 67-year-old female with past medical history significant for her bilateral lower extremity chronic venous stasis ulcer and cellulitis presenting to the ER at [facility] on 02/16/2020 with chief complaints of increasing lower extremity swelling redness and drainage that is been getting worse over the last 2 weeks patient has been treated with a course of oral antibiotic by her primary care physician patient not sure about the name however the patient had progressive pain swelling redness and that brought her to the hospital patient described her pain to be sharp intensity about 6-7 out of 10 and no radiation patient did have some superficial ulceration no significant foul-smelling drainage. Did have some chills but denies high-grade fever recently the patient was evaluated by the ER physician over to the ER the patient has been afebrile patient did have a normal white count kidney function was normal liver enzymes are normal pollard PCR was negative lower extremity Doppler was negative for any DVT patient has been started on cefazolin and vancomycin infectious was consulted for further management of antibiotic therapy. Review of Systems Positive point has been mentioned in HPI rest of the systems are negative Past Medical History Past Medical History: Coronary Artery Disease (CAD), Heart Failure, Diabetes Mellitus, GERD/Reflux, Hyperlipidemia, Hypertension, Myocardial Infarction ([place]), Osteoarthritis (OA), Renal Disease, Rheumatoid Arthritis (RA), Skin Disorder, Vascular Disorder Additional Past Medical History / Comment(s): Chronic bilateral venous stasis ulcers, pt states she currently has L lower leg wound being tx at [facility] and that R lower leg wound nearly healed, bilateral lower leg cellulitis, past bilateral heel wounds, IDDM type II, neuropathy bilateral legs/feet, CKD stage III, Chronic back and bilateral leg pain, bilateral cataracts, gallstones, rash on b ilateral shoulders/chest and L leg, R breast slightly enlarged-punch skin bx negative. Last Myocardial Infarction Date:: 2011 History of Any Multi-Drug Resistant Organisms: ESBL, MRSA Year Discovered:: 01/26/20 ESBL / 03/20/19 MRSA MDRO Source:: ESBL URINE/ MRSA BLOOD Past Surgical History: Section Additional Past Surgical History / Comment(s): 2011 CABG 2 vessel, D&C, C- sections x 2, bilateral lower leg/heels debrided. Past Anesthesia/Blood Transfusion Reactions: No Reported Reaction Additional Past Anesthesia/Blood Transfusion Reaction / Comm: clausterphobia Past Psychological History: Depression Additional Psychological History / Comment(s): [facility] (lost her of 30 years in jun 2017). Pt uses walker when up and wheelchair for longer distances. She has care provider and rides thru her [employer] company. Denies tobacco smoking or alcohol use. Medically disabled. No experience or international travel. No animals in the home. She has a nebulizer and a glucometer. She has VNA aide 3 days a week for cleaning/showering. She has [facility] home care for wounds. Smoking Status: Former smoker Past Alcohol Use History: None Reported Additional Past Alcohol Use History / Comment(s): started smoking at age 29 and quit at age 40 was smoking 3 ppd. In the past used to drink heavily but none since 1990 Past Drug Use History: None Reported - Past Family History Mother Additional Family Medical History / Comment(s): anuerysm Father Family Medical History: CVA/TIA, Diabetes Mellitus, Myocardial Infarction ([place]) Sister(s) Additional Family Medical History / Comment(s): one sister had "hole in her heart" and a kidney transplant and another sister had ms. Medications and Allergies Home Medications Medication Instructions Recorded Confirmed Type Carvedilol [Coreg] 12.5 mg PO BID 08/17/18 02/16/20 History Clopidogrel [Plavix] 75 mg PO DAILY 08/17/18 02/16/20 History Insulin Detemir [Levemir Flextouch] 10 units SQ HS 08/17/18 02/16/20 History Potassium Chloride ER [K-Dur 20] 20 meq PO DAILY #30 tab 01/03/19 02/16/20 Rx INSULIN ASPART (NovoLOG) [NovoLOG 20 unit SQ AC-TID 02/23/19 02/16/20 History (formulary)] Gabapentin [Neurontin] 300 mg PO HS #3 capsule 03/27/19 02/16/20 Rx Ferrous Sulfate [Feosol] 325 mg PO DAILY 04/12/19 02/16/20 History Furosemide [Lasix] 20 mg PO DAILY 11/07/19 02/16/20 History Collagenase [Santyl] 1 applic TOPICAL BID 02/16/20 02/16/20 History Pantoprazole [Protonix] 40 mg PO DAILY 02/16/20 02/16/20 History Allergies Allergy/AdvReac Type Severity Reaction Status Date / Time collagenase Clostridium Allergy Unknown Verified 02/16/20 18:53 histolyticu [From Santyl] latex Allergy Rash/Hives Verified 02/16/20 18:53 pollen extracts AdvReac Mild Itching Verified 02/16/20 18:53 Physical Exam Vitals: Vital Signs Temp Pulse Pulse Resp BP BP BP 02/17/20 08:15 97.9 F 84 17 94/52 02/17/20 03:16 14 02/17/20 02:45 98.7 F 90 20 144/75 02/16/20 23:21 97 149/79 02/16/20 20:08 98.1 F 92 18 146/74 02/16/20 17:51 98.5 F 95 18 115/67 Pulse Ox 02/17/20 08:15 96 02/17/20 03:16 02/17/20 02:45 95 02/16/20 23:21 02/16/20 20:08 99 02/16/20 17:51 97 Intake and Output 02/17/20 02/17/20 02/17/20 06:59 14:59 22:59 Intake Total 550 Balance 550 Intake: Intake, IV Titration 550 Amount Vancomycin 2,500 mg In 500 Sodium Chloride 0.9% 500 ml 500 ml @ 167 mls/hr IVPB Q24H [facility] Rx#: [id number] ceFAZolin 2 gm In Sodium 50 Chloride 0.9% 50 ml @ 100 mls/hr IVPB Q8HR [facility] Rx# :[id number] Other: Voiding Method Incontinent Weight 145.15 kg GENERAL DESCRIPTION: Elderly male lying in bed, no distress. No tachypnea or accessory muscle of respiration use. HEENT: Shows Pallor , no scleral icterus. Oral mucous membrane is dry. NECK: Trachea central, no thyromegaly. LUNGS: Unlabored breathing. Clear to auscultation anteriorly. No wheeze or c rackle. HEART: S1, S2, regular rate and rhythm. ABDOMEN: Soft, no tenderness , guarding or rigidity EXTREMITIES: Diffuse swelling bilateral lower extremity some superficial ulceration no significant purulence sKIN: No rash, no masses palpable. NEUROLOGICAL: The patient is awake, alert, oriented x3, mood and affect normal. Results CBC & Chem 7: 02/17/20 13:52 02/17/20 13:52 Labs: Abnormal Lab Results - Last 24 Hours (Table) 02/16/20 02/16/20 02/16/20 Range/Units 15:55 15:55 21:15 RBC 3.42 L (3.80-5.40) m/uL Hgb 9.1 L (11.4-16.0) gm/dL Hct 30.7 L (34.0-46.0) % MCHC 29.7 L (31.0-37.0) g/dL RDW 16.6 H (11.5-15.5) % Lymphocytes # 0.8 L (1.0-4.8) k/uL Potassium 5.2 H (3.5-5.1) mmol/L Chloride (98-107) mmol/L Carbon Dioxide (22-30) mmol/L BUN 34 H (7-17) mg/dL Creatinine 1.14 H (0.52-1.04) mg/dL Glucose 153 H (74-99) mg/dL POC Glucose (mg/dL) 127 H (75-99) mg/dL Calcium (8.4-10.2) mg/dL Albumin 3.4 L (3.5-5.0) g/dL 02/16/20 02/17/20 02/17/20 Range/Units 23:27 07:04 07:38 RBC 3.17 L (3.80-5.40) m/uL Hgb 8.5 L (11.4-16.0) gm/dL Hct 28.8 L (34.0-46.0) % MCHC 29.3 L (31.0-37.0) g/dL RDW 16.7 H (11.5-15.5) % Lymphocytes # 0.6 L (1.0-4.8) k/uL Potassium (3.5-5.1) mmol/L Chloride (98-107) mmol/L Carbon Dioxide (22-30) mmol/L BUN (7-17) mg/dL Creatinine (0.52-1.04) mg/dL Glucose (74-99) mg/dL POC Glucose (mg/dL) 134 H 148 H (75-99) mg/dL Calcium (8.4-10.2) mg/dL Albumin (3.5-5.0) g/dL 02/17/20 02/17/20 02/17/20 Range/Units 07:38 11:32 13:52 RBC (3.80-5.40) m/uL Hgb (11.4-16.0) gm/dL Hct (34.0-46.0) % MCHC (31.0-37.0) g/dL RDW (11.5-15.5) % Lymphocytes # (1.0-4.8) k/uL Potassium 5.3 H (3.5-5.1) mmol/L Chloride 112 H 108 H (98-107) mmol/L Carbon Dioxide 20 L (22-30) mmol/L BUN 33 H 33 H (7-17) mg/dL Creatinine 1.12 H 1.33 H (0.52-1.04) mg/dL Glucose 131 H 143 H (74-99) mg/dL POC Glucose (mg/dL) 141 H (75-99) mg/dL Calcium 8.3 L (8.4-10.2) mg/dL Albumin 2.9 L 3.0 L (3.5-5.0) g/dL 02/17/20 Range/Units 13:52 RBC 3.25 L (3.80-5.40) m/uL Hgb 8.7 L (11.4-16.0) gm/dL Hct 29.8 L (34.0-46.0) % MCHC 29.4 L (31.0-37.0) g/dL RDW 16.6 H (11.5-15.5) % Lymphocytes # 0.7 L (1.0-4.8) k/uL Potassium (3.5-5.1) mmol/L Chloride (98-107) mmol/L Carbon Dioxide (22-30) mmol/L BUN (7-17) mg/dL Creatinine (0.52-1.04) mg/dL Glucose (74-99) mg/dL POC Glucose (mg/dL) (75-99) mg/dL Calcium (8.4-10.2) mg/dL Albumin (3.5-5.0) g/dL Assessment and Plan Assessment: patient with bilateral lower extremity cellulitis in this patient who did have a diffuse swelling redness likely streptococcal disease clinically doubt MRSA or gram-negative infection. (1) Cellulitis of both lower extremities Current Visit: Yes Status: Acute Code(s): L03.115 - CELLULITIS OF RIGHT LOWER LIMB; L03.116 - CELLULITIS OF LEFT LOWER LIMB SNOMED Code(s): 574066668 Plan: 1-cefazolin 2 g every 8 hr to continue 2-discontinue vancomycin 3-Mycolog cream to the bilateral lower extremity erythematous area followed by Yusuf wrap from just above the toe to below the knee to be changed daily We will follow on clinical condition and cultures to further adjust medication if needed Thank you for this consultation we will follow the patient along with you Time with Patient: Greater than 30
[2020-02-18] MEDS: HEPARIN SODIUM,PORCINE 5,000 UNIT/ML 1 ML VIAL SQ SCH ×4 (00:09→23:05)
[2020-02-18 06:57] LABS: Glucose,Whole Blood 136 mg/dL (75-99)
[2020-02-18] MEDS: INSULIN ASPART (NovoLOG) 100 UNIT/ML VIAL SQ SCH ×4 (07:25→20:31)
[2020-02-18 07:43] LABS: Anisocytosis Slight; Basophils % (A) 1 %; Eosinophils # (A) 0.5 k/uL (0-0.7); Eosinophils % (A) 9 %; HCT 30.5 % (34.0-46.0); HGB 9.1 gm/dL (11.4-16.0); Hypochromasia Marked; Lymphocytes # (A) 0.6 k/uL (1.0-4.8); Lymphocytes % (A) 10 %; MCH 27.2 pg (25.0-35.0); MCHC 29.9 g/dL (31.0-37.0); MCV 91.2 fL (80.0-100.0); Mean Platelet Volume 8.6; Monocytes # (A) 0.4 k/uL (0-1.0); Monocytes % (A) 6 %; Neutrophils # (A) 4.5 k/uL (1.3-7.7); Neutrophils % (A) 74 %; Platelet Count 265 k/uL (150-450); RBC 3.34 m/uL (3.80-5.40); RDW 16.3 % (11.5-15.5); WBC 6.1 k/uL (3.8-10.6)
[2020-02-18] MEDS: CARVEDILOL 6.25 MG TAB PO SCH ×2 (07:50→17:14)
[2020-02-18 08:02] LABS: ALT <6 U/L (4-34); AST 15 U/L (14-36); African American GFR (CKD) 51 (>60 ml/min/1.73 sqM); Albumin 3.1 g/dL (3.5-5.0); Alkaline Phosphatase 125 U/L (38-126); Anion Gap 11 mmol/L; Blood Urea Nitrogen 35 mg/dL (7-17); Calcium 8.3 mg/dL (8.4-10.2); Carbon Dioxide 18 mmol/L (22-30); Chloride 112 mmol/L (98-107); Glucose 133 mg/dL (74-99); Non-African American GFR(CKD) 44 (>60 ml/min/1.73 sqM); Sodium 141 mmol/L (137-145); Total Bilirubin 0.4 mg/dL (0.2-1.3); Total Protein 6.8 g/dL (6.3-8.2)
[2020-02-18] MEDS ORDERED: COLLAGENASE 250 UNIT/GM OINTMENT 30 GM TUBE TOPICAL SCH (09:00)
[2020-02-18] MEDS: TRIAMCINOLONE 0.1% CREAM 80 GM TUBE TOPICAL SCH (09:57)
[2020-02-18] MEDS: NYSTATIN 100,000UNIT/GM CREAM 30 GM TUBE TOPICAL SCH (09:57)
[2020-02-18] MEDS: PANTOPRAZOLE 40 MG TABLET PO SCH (09:57)
[2020-02-18] MEDS: CLOPIDOGREL 75 MG TAB PO SCH (09:57)
--- NOTE | 2020-02-18 10:08 | P.NPCON ---
History of Present Illness - Reason for Consult acute renal failure, chronic renal failure - History of Present Illness Reason for consultation: Acute kidney injury on chronic kidney disease History of present illness: Patient is a 59-year-old female seen in renal consultation for acute kidney injury on chronic kidney disease. Patient has chronic kidney disease stage III with baseline creatinine in the range of 1.1-1.3. GFR is near baseline. Patient presented to the hospital on February 15 with lower extremity swelling drainage as well as erythema. She is currently being treated for cellulitis with IV cefazolin. States lower extremities are tankroom tender. Denies any drainage now. No fever or chills. She does complain of intermittent diarrhea. No vomiting. Oral intake is good. She is maintained on normal saline at 75 mL an hour. Denies chest pain or shortness of breath. She's been a diabetic since the age of 29. Patient's states her sister was on hemodialysis but is unsure of the cause. 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 Vital signs are stable. General: The patient appeared well nourished and normally developed. HEENT: Head exam is unremarkable. Neck is without jugular venous distension. LUNGS: Lungs are clear to auscultation and percussion. Breath sounds decreased. HEART: Rate and Rhythm are regular. ABDOMEN: Nontender, nondistended. EXTREMITITES: Wrapped. No drainage noted. Tender to touch. Past Medical History Past Medical History: Coronary Artery Disease (CAD), Heart Failure, Diabetes Mellitus, GERD/Reflux, Hyperlipidemia, Hypertension, Myocardial Infarction ([place]), Osteoarthritis ([place]), Renal Disease, Rheumatoid Arthritis ([place]), Skin Disorder, Vascular Disorder Additional Past Medical History / Comment(s): Chronic bilateral venous stasis ulcers, pt states she currently has L lower leg wound being tx at [facility] and that R lower leg wound nearly healed, bilateral lower leg cellulitis, past bilateral heel wounds, IDDM type II, neuropathy bilateral legs/feet, CKD stage III, C hronic back and bilateral leg pain, bilateral cataracts, gallstones, rash on bilateral shoulders/chest and L leg, R breast slightly enlarged-punch skin bx negative. Last Myocardial Infarction Date:: 2011 History of Any Multi-Drug Resistant Organisms: ESBL, MRSA Date of last positivie culture/infection: 01/26/20 ESBL / 03/20/19 MRSA MDRO Source:: ESBL URINE/ MRSA BLOOD Past Surgical History: Section Additional Past Surgical History / Comment(s): 2011 CABG 2 vessel, D&C, C- sections x 2, bilateral lower leg/heels debrided. Past Anesthesia/Blood Transfusion Reactions: No Reported Reaction Additional Past Anesthesia/Blood Transfusion Reaction / Comment(s): clausterphobia Past Psychological History: Depression Additional Psychological History / Comment(s): pt lives alone at [facility]. (lost her of 30 years in jun 2017). Pt uses walker when up and wheelchair for longer distances. She has care provider and rides thru her insurance company. Denies tobacco smoking or alcohol use. Medically disabled. No experience or international travel. No animals in the home. She has a nebulizer and a glucometer. She has VNA aide 3 days a week for cleaning/showering. She has [facility] home care for wounds. Smoking Status: Former smoker Past Alcohol Use History: None Reported Additional Past Alcohol Use History / Comment(s): started smoking at age 29 and quit at age 40 was smoking 3 ppd. In the past used to drink heavily but none since 1990 Past Drug Use History: None Reported - Past Family History Mother Additional Family Medical History / Comment(s): anuerysm Father Family Medical History: CVA/TIA, Diabetes Mellitus, Myocardial Infarction ([place]) Sister(s) Additional Family Medical History / Comment(s): one sister had "hole in her heart" and a kidney transplant and another sister had ms. Medications and Allergies Home Medications Medication Instructions Recorded Confirmed Type Carvedilol [Coreg] 12.5 mg PO BID 08/17/18 02/16/20 History Clopidogrel [Plavix] 75 mg PO DAILY 08/17/18 02/16/20 History Insulin Detemir [Levemir Flextouch] 10 units SQ HS 08/17/18 02/16/20 History Potassium Chloride ER [K-Dur 20] 20 meq PO DAILY #30 tab 01/03/19 02/16/20 Rx INSULIN ASPART (NovoLOG) [NovoLOG 20 unit SQ AC-TID 02/23/19 02/16/20 History (formulary)] Gabapentin [Neurontin] 300 mg PO HS #3 capsule 03/27/19 02/16/20 Rx Ferrous Sulfate [Feosol] 325 mg PO DAILY 04/12/19 02/16/20 History Furosemide [Lasix] 20 mg PO DAILY 11/07/19 02/16/20 History Collagenase [Santyl] 1 applic TOPICAL BID 02/16/20 02/16/20 History Pantoprazole [Protonix] 40 mg PO DAILY 02/16/20 02/16/20 History Allergies Allergy/AdvReac Type Severity Reaction Status Date / Time collagenase Clostridium Allergy Unknown Verified 02/16/20 18:53 histolyticu [From Santyl] latex Allergy Rash/Hives Verified 02/16/20 18:53 pollen extracts AdvReac Mild Itching Verified 02/16/20 18:53 Physical Exam Vitals: Vital Signs Temp Pulse Resp BP Pulse Ox 02/18/20 07:00 98.0 F 84 18 131/69 97 02/18/20 01:35 98.1 F 77 18 123/70 98 02/17/20 19:16 97.9 F 84 18 132/68 02/17/20 15:00 98.2 F 82 18 111/77 95 Intake and Output 02/17/20 02/18/20 02/18/20 22:59 06:59 14:59 Intake Total 262.5 Output Total 600 Balance 262.5 -600 Intake: Intake, IV Titration 262.5 Amount Sodium Chloride 0.9% 1, 262.5 000 ml @ 75 mls/hr IV . [id number] [facility] Rx#:[id number] Output: Urine 600 Other: Voiding Method Incontinent Results - Lab Results Most recent lab results Calcium 8.3 mg/dL (8.4-10.2) L 02/18/20 07:15 02/18/20 07:15 02/18/20 07:15 Assessment and Plan Plan: Assessment: 1. Mild acute kidney injury mostly prerenal secondary to infection. Creatinine 1.32 today. 2. Chronic kidney disease stage III with baseline creatinine in the range of 1.1-1.3. Etiology is most likely diabetic kidney disease. 3. Lower extremity cellulitis maintained on antibiotics. 4. Metabolic acidosis secondary to acute kidney injury and IV fluids. 5. Anemia. Rule out iron deficiency. Plan: Hep-Lock IV fluids. Encouraged oral intake. Monitor bicarb. Check iron studies. Repeat electrolytes in the morning. Thank you for the consultation. I will continue to follow the patient with you during her hospital stay.
[2020-02-18 11:49] LABS: Glucose,Whole Blood 195 mg/dL (75-99)
--- NOTE | 2020-02-18 13:05 | P.PN ---
Subjective Progress Note Date: 02/18/20 Principal diagnosis: CELLULITIS Patient seen and examined at bedside. Ultrasound completed yesterday was negative for DVT. Patient denies chest pain shortness of breath nausea vomiting fevers or chills. Potassium did come down to 5.0 after Kayexalate was administered. Patient's kidney function is stable at 1.32. Nephrology is following. Hemoglobin is stable 9.1 Patient's blood pressure has improved. Blood pressure today is 131/69 with a heart rate of 84. Patient was seen by wound care. Legs are currently wrapped. This is a 59-year-old female with complex past medical history noted below significant for morbid obesity and bilateral lower extremity venous stasis with recurrent cellulitis that presented to the emergency room with worsening swelling and redness of both legs. Patient lives in a halfway and was recently started on antibiotic for worsening cellulitis and UTI. Patient does not recall what kind of antibiotic she was started on. She said that for the past week she finished antibiotic course today with minimal improvement actually also legs are getting worse in terms of redness and drainage. Objective - Vital Signs Vital signs: Vital Signs Temp 98.0 F 02/18/20 07:00 Pulse 84 02/18/20 07:00 Resp 18 02/18/20 07:00 BP 131/69 02/18/20 07:00 Pulse Ox 97 02/18/20 07:00 Intake & Output 02/17/20 02/18/20 02/18/20 18:59 06:59 18:59 Intake Total 262.5 Output Total 400 600 Balance -400 -337.5 Weight 145.15 kg Intake: Intake, IV Titration 262.5 Amount Sodium Chloride 0.9% 1, 262.5 000 ml @ 75 mls/hr IV . [id number] [facility] Rx#:[id number] Output: Urine 400 600 Other: Voiding Method Incontinent Incontinent Incontinent - Exam General: [non toxic], [no distress], [appears at stated age] Derm: [warm], [dry] Head: [atraumatic], [normocephalic], [symmetric] Eyes: [EOMI], [no lid lag], [anicteric sclera] Mouth: [no lip lesion], [mucus membranes moist] Cardiovascular: [S1S2 reg], [no murmur], [positive posterior tibial pulse bilateral], Lungs: [CTA bilateral], [no rhonchi, no rales] , [no accessory muscle use] Abdominal: [soft], [ nontender to palpation], [no guarding], [no appreciable organomegaly] Ext: [no gross muscle atrophy], [b/l LE edema with erythema legs are currently wrapped with Yusuf bandages ], [no contractures] Neuro: [ CN II-XI grossly intact], [no focal neuro deficits] Psych: [Alert], [oriented], [appropriate affect] - Labs CBC & Chem 7: 02/18/20 07:15 02/18/20 07:15 Labs: Abnormal Lab Results - Last 24 Hours (Table) 02/17/20 02/17/20 02/17/20 Range/Units 13:52 13:52 17:11 RBC 3.25 L (3.80-5.40) m/uL Hgb 8.7 L (11.4-16.0) gm/dL Hct 29.8 L (34.0-46.0) % MCHC 29.4 L (31.0-37.0) g/dL RDW 16.6 H (11.5-15.5) % Lymphocytes # 0.7 L (1.0-4.8) k/uL Chloride 108 H (98-107) mmol/L Carbon Dioxide (22-30) mmol/L BUN 33 H (7-17) mg/dL Creatinine 1.33 H (0.52-1.04) mg/dL Glucose 143 H (74-99) mg/dL POC Glucose (mg/dL) 129 H (75-99) mg/dL Calcium 8.3 L (8.4-10.2) mg/dL Albumin 3.0 L (3.5-5.0) g/dL 02/17/20 02/18/20 02/18/20 Range/Units 20:21 06:56 07:15 RBC (3.80-5.40) m/uL Hgb (11.4-16.0) gm/dL Hct (34.0-46.0) % MCHC (31.0-37.0) g/dL RDW (11.5-15.5) % Lymphocytes # (1.0-4.8) k/uL Chloride 112 H (98-107) mmol/L Carbon Dioxide 18 L (22-30) mmol/L BUN 35 H (7-17) mg/dL Creatinine 1.32 H (0.52-1.04) mg/dL Glucose 133 H (74-99) mg/dL POC Glucose (mg/dL) 201 H 136 H (75-99) mg/dL Calcium 8.3 L (8.4-10.2) mg/dL Albumin 3.1 L (3.5-5.0) g/dL 02/18/20 02/18/20 Range/Units 07:15 11:46 RBC 3.34 L (3.80-5.40) m/uL Hgb 9.1 L (11.4-16.0) gm/dL Hct 30.5 L (34.0-46.0) % MCHC 29.9 L (31.0-37.0) g/dL RDW 16.3 H (11.5-15.5) % Lymphocytes # 0.6 L (1.0-4.8) k/uL Chloride (98-107) mmol/L Carbon Dioxide (22-30) mmol/L BUN (7-17) mg/dL Creatinine (0.52-1.04) mg/dL Glucose (74-99) mg/dL POC Glucose (mg/dL) 195 H (75-99) mg/dL Calcium (8.4-10.2) mg/dL Albumin (3.5-5.0) g/dL Microbiology - Last 24 Hours (Table) 02/16/20 15:55 Blood Culture - Preliminary Blood No Growth after 24 hours Assessment and Plan Assessment: 1. Bilateral lower extremity cellulitis -Continue IV antibiotics -infectious disease recommendations appreciated -Consult wound care recommendations appreciated -Ultrasound of lower extremity was negative 2. Hyperkalemia likely caused by renal insufficiency resolved -Monitor CMP -Nephrology recommendations appreciated 3. Mild hypotension secondary to #1 with blood pressure medications resolved -slow IV hydration -Lasix discontinued -Coreg decreased to to 6.25 mg by mouth twice a day with parameters 4. Normocytic anemia likely chronic -Check iron studies -Monitor CBC 5. Type 2 diabetes -continue sliding scale 6. History of coronary artery artery disease with history of CABG continue medical management 7. Morbid obesity 8. GI DVT prophylaxis 9. A.m. labs 30 minutes spent coordinating care and counseling patient.
[2020-02-18 16:41] LABS: Glucose,Whole Blood 151 mg/dL (75-99)
[2020-02-18 20:24] LABS: Glucose,Whole Blood 174 mg/dL (75-99)
[2020-02-18] MEDS: INSULIN DETEMIR (LEVEMIR) 100 UNIT/ML SYR SQ SCH (20:31)
[2020-02-18] MEDS: GABAPENTIN 300 MG CAP PO SCH (20:31)
--- NOTE | 2020-02-18 23:50 | PN ---
PROGRESS NOTE DATE OF SERVICE: 02/18/2020 REASON FOR FOLLOWUP: Bilateral lower extremity cellulitis. INTERVAL HISTORY: The patient is currently afebrile. Patient is breathing comfortably. Denies having any chest pain or cough. No nausea, no vomiting. No abdominal pain. However, pain discomfort to the leg has slightly improved. PHYSICAL EXAMINATION: Blood pressure 120/67 with pulse of 82, temperature 98.3. She is 97% on room air. General description is a middle-aged female lying in bed in no distress. RESPIRATORY SYSTEM: Unlabored breathing, clear to auscultation anteriorly. HEART: S1, S2. Regular rate and rhythm. ABDOMEN: Soft, no tenderness. LEGS: Swelling persists =, redness has slightly receded. LABS: Hemoglobin 9.1, white count 6.1, BUN of 35, creatinine 1.32. Blood culture has been negative. DIAGNOSTIC IMPRESSION AND PLAN: Patient with bilateral lower extremity cellulitis with diffuse swelling and redness likely streptococcal disease to continue with cefazolin, local care with Mycolog cream and Yusuf wrap and monitor clinical course closely. MMODL / IJN: [id number] /
[2020-02-19] MEDS: CARVEDILOL 6.25 MG TAB PO SCH ×2 (07:24→16:49)
[2020-02-19 07:26] LABS: Anisocytosis Slight; Basophils % (A) 1 %; Eosinophils # (A) 0.4 k/uL (0-0.7); Eosinophils % (A) 8 %; HCT 29.3 % (34.0-46.0); HGB 8.5 gm/dL (11.4-16.0); Hypochromasia Marked; Lymphocytes # (A) 0.6 k/uL (1.0-4.8); Lymphocytes % (A) 10 %; MCH 26.5 pg (25.0-35.0); MCHC 29.2 g/dL (31.0-37.0); MCV 90.8 fL (80.0-100.0); Mean Platelet Volume 7.4; Monocytes # (A) 0.3 k/uL (0-1.0); Monocytes % (A) 6 %; Neutrophils % (A) 74 %; Platelet Count 233 k/uL (150-450); RBC 3.22 m/uL (3.80-5.40); RDW 16.7 % (11.5-15.5); WBC 5.4 k/uL (3.8-10.6)
[2020-02-19] MEDS: HEPARIN SODIUM,PORCINE 5,000 UNIT/ML 1 ML VIAL SQ SCH ×3 (07:31→23:26)
[2020-02-19] MEDS: TRIAMCINOLONE 0.1% CREAM 80 GM TUBE TOPICAL SCH (07:33)
[2020-02-19] MEDS: PANTOPRAZOLE 40 MG TABLET PO SCH (07:34)
[2020-02-19] MEDS: NYSTATIN 100,000UNIT/GM CREAM 30 GM TUBE TOPICAL SCH (07:34)
[2020-02-19] MEDS: CLOPIDOGREL 75 MG TAB PO SCH (07:34)
[2020-02-19 07:41] LABS: Glucose,Whole Blood 140 mg/dL (75-99)
[2020-02-19 07:44] LABS: Calcium 8.2 mg/dL (8.4-10.2); Magnesium 2.1 mg/dL (1.6-2.3); Potassium 4.8 mmol/L (3.5-5.1)
[2020-02-19] MEDS: INSULIN ASPART (NovoLOG) 100 UNIT/ML VIAL SQ SCH ×4 (07:49→20:45)
--- NOTE | 2020-02-19 09:44 | P.PN ---
Subjective Patient is seen in follow-up for acute kidney injury on chronic kidney disease. GFR is at baseline. Oral intake is good. No vomiting or diarrhea. Vital signs are stable. General: The patient appeared well nourished and normally developed. HEENT: Head exam is unremarkable. Neck is without jugular venous distension. LUNGS: Lungs are clear to auscultation and percussion. Breath sounds decreased. HEART: Rate and Rhythm are regular. ABDOMEN: Soft, nontender. Obese. EXTREMITITES: Lower extremities wrapped. Tender to touch. Objective - Vital Signs Vital signs: Vital Signs Temp 97.8 F 02/19/20 07:14 Pulse 79 02/19/20 07:14 Resp 18 02/19/20 07:14 BP 107/53 02/19/20 07:14 Pulse Ox 96 02/19/20 07:14 Intake & Output 02/18/20 02/19/20 02/19/20 18:59 06:59 18:59 Intake Total 50 550 Balance 50 550 Intake: Intake, IV Titration 50 Amount ceFAZolin 2 gm In Sodium 50 Chloride 0.9% 50 ml @ 100 mls/hr IVPB Q8HR [facility] Rx# :[id number] Oral 550 Other: Voiding Method Incontinent Incontinent - Labs CBC & Chem 7: 02/19/20 06:11 02/19/20 06:11 Labs: Abnormal Lab Results - Last 24 Hours (Table) 02/18/20 02/18/20 02/18/20 Range/Units 11:46 16:39 20:22 RBC (3.80-5.40) m/uL Hgb (11.4-16.0) gm/dL Hct (34.0-46.0) % MCHC (31.0-37.0) g/dL RDW (11.5-15.5) % Lymphocytes # (1.0-4.8) k/uL Chloride (98-107) mmol/L Carbon Dioxide (22-30) mmol/L BUN (7-17) mg/dL Creatinine (0.52-1.04) mg/dL Glucose (74-99) mg/dL POC Glucose (mg/dL) 195 H 151 H 174 H (75-99) mg/dL Calcium (8.4-10.2) mg/dL 02/19/20 02/19/20 02/19/20 Range/Units 06:11 06:11 07:20 RBC 3.22 L (3.80-5.40) m/uL Hgb 8.5 L (11.4-16.0) gm/dL Hct 29.3 L (34.0-46.0) % MCHC 29.2 L (31.0-37.0) g/dL RDW 16.7 H (11.5-15.5) % Lymphocytes # 0.6 L (1.0-4.8) k/uL Chloride 112 H (98-107) mmol/L Carbon Dioxide 20 L (22-30) mmol/L BUN 32 H (7-17) mg/dL Creatinine 1.31 H (0.52-1.04) mg/dL Glucose 138 H (74-99) mg/dL POC Glucose (mg/dL) 140 H (75-99) mg/dL Calcium 8.2 L (8.4-10.2) mg/dL Microbiology - Last 24 Hours (Table) 02/16/20 15:55 Blood Culture - Preliminary Blood No Growth after 48 hours Assessment and Plan Plan: Assessment: 1. Mild acute kidney injury mostly prerenal secondary to infection. Creatinine stable at 1.31 today. 2. Chronic kidney disease stage III with baseline creatinine in the range of 1.1-1.3. Etiology is most likely diabetic kidney disease. 3. Lower extremity cellulitis maintained on antibiotics. 4. Metabolic acidosis secondary to acute kidney injury and IV fluids. Better. 5. Anemia. Rule out iron deficiency. Plan: Remains off IV fluids. Encouraged oral intake. Monitor bicarb. Follow-up iron studies.
[2020-02-19 10:20] LABS: % Iron Saturation 6.47 (12.00-45.00); Iron 20 ug/dL (50-170); Total Iron Binding Capacity 309 ug/dL (228-460)
[2020-02-19 11:52] LABS: Glucose,Whole Blood 239 mg/dL (75-99)
--- NOTE | 2020-02-19 14:24 | P.CONS ---
History of Present Illness - Reason for Consult Consult date: 02/19/20 wound care - History of Present Illness This is a 59-year-old pleasant female being seen on 4 S. for nonhealing ulcerations to bilateral lower extremities, bilateral calcaneus, and coccyx. Patient is a known patient to the wound care center. Her last visit was 12/19/2019 due to the Covid 19. Patient ulcerations show improvement from the last visit. Patient is complaining of significant amount of pain to wandy ateral calcaneus. Patient states that the legs were red and weepy on Wednesday which prompted her to be admitted to the hospital. Patient previously finished a course of oral antibiotics approximately 3 weeks ago. Review of Systems Review Of Systems: Constitutional: No fever, no chills, no night sweats. No weight change. No weakness, fatigue or lethargy. No daytime sleepiness. Integumentary:reports wounds, no lesions. No rash or pruritus. No unusual bruising. No change in hair or nails. Past Medical History Past Medical History: Coronary Artery Disease (CAD), Heart Failure, Diabetes Mellitus, GERD/Reflux, Hyperlipidemia, Hypertension, Myocardial Infarction ([place]), Osteoarthritis (OA), Renal Disease, Rheumatoid Arthritis (RA), Skin Disorder, Vascular Disorder Additional Past Medical History / Comment(s): Chronic bilateral venous stasis ulcers, pt states she currently has L lower leg wound being tx at [facility] and that R lower leg wound nearly healed, bilateral lower leg cellulitis, past bilateral heel wounds, IDDM type II, neuropathy bilateral legs/feet, CKD stage III, 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 Last Myocardial Infarction Date:: 2011 History of Any Multi-Drug Resistant Organisms: ESBL, MRSA Year Discovered:: 01/26/20 ESBL / 03/20/19 MRSA MDRO Source:: ESBL URINE/ MRSA BLOOD Past Surgical History: Section Additional Past Surgical History / Comment(s): 2011 CABG 2 vessel, D&C, C- sections x 2, bilateral lower leg/heels debrided. Past Anesthesia/Blood Transfusion Reactions: No Reported Reaction Additional Past Anesthesia/Blood Transfusion Reaction / Comm: clausterphobia Past Psychological History: Depression Additional Psychological History / Comment(s): pt lives alone at [facility]. (lost her of 30 years in jun 2017). Pt uses walker when up and wheelchair for longer distances. She has care provider and rides thru her insurance company. Denies tobacco smoking or alcohol use. Medically disabled. No experience or international travel. No animals in the home. She has a nebulizer and a glucometer. She has [facility]NA aide 3 days a week for cleaning/showering. She has [facility] home care for wounds. Smoking Status: Former smoker Past Alcohol Use History: None Reported Additional Past Alcohol Use History / Comment(s): started smoking at age 29 and quit at age 40 was smoking 3 ppd. In the past used to drink heavily but none since 1990 Past Drug Use History: None Reported - Past Family History Mother Additional Family Medical History / Comment(s): anuerysm Father Family Medical History: CVA/TIA, Diabetes Mellitus, Myocardial Infarction ([place]) Sister(s) Additional Family Medical History / Comment(s): one sister had "hole in her heart" and a kidney transplant and another sister had ms. Medications and Allergies Home Medications Medication Instructions Recorded Confirmed Type Carvedilol [Coreg] 12.5 mg PO BID 08/17/18 02/16/20 History Clopidogrel [Plavix] 75 mg PO DAILY 08/17/18 02/16/20 History Insulin Detemir [Levemir Flextouch] 10 units SQ HS 08/17/18 02/16/20 History Potassium Chloride ER [K-Dur 20] 20 meq PO DAILY #30 tab 01/03/19 02/16/20 Rx INSULIN ASPART (NovoLOG) [NovoLOG 20 unit SQ AC-TID 02/23/19 02/16/20 History (formulary)] Gabapentin [Neurontin] 300 mg PO HS #3 capsule 03/27/19 02/16/20 Rx Ferrous Sulfate [Feosol] 325 mg PO DAILY 04/12/19 02/16/20 History Furosemide [Lasix] 20 mg PO DAILY 11/07/19 02/16/20 History Collagenase [Santyl] 1 applic TOPICAL BID 02/16/20 02/16/20 History Pantoprazole [Protonix] 40 mg PO DAILY 02/16/20 02/16/20 History Allergies Allergy/AdvReac Type Severity Reaction Status Date / Time collagenase Clostridium Allergy Unknown Verified 02/16/20 18:53 histolyticu [From Santyl] latex Allergy Rash/Hives Verified 02/16/20 18:53 pollen extracts AdvReac Mild Itching Verified 02/16/20 18:53 Physical Exam Vitals: Vital Signs Temp Pulse Resp BP Pulse Ox 02/19/20 07:14 97.8 F 79 18 107/53 96 02/19/20 00:10 98 F 82 20 116/67 95 02/18/20 19:20 98 F 82 18 103/62 96 02/18/20 15:00 98.3 F 82 18 120/67 97 Intake and Output 02/18/20 02/19/20 02/19/20 22:59 06:59 14:59 Intake Total 350 200 50 Balance 350 200 50 Intake: Intake, IV Titration 50 Amount ceFAZolin 2 gm In Sodium 50 Chloride 0.9% 50 ml @ 100 mls/hr IVPB Q8HR COUNTS INCLUDE 234 BEDS AT THE [facility] Rx# :[id number] Oral 350 200 Other: Voiding Method Incontinent Incontinent Weight 145.15 kg Physical exam: General Appearance: Alert, cooperative, no distress, appears stated age. Skin: Grade 2 diabetic foot ulcer to the right calcaneus measuring approximate 5.2 x 5 x 0.2 cm with fat layer exposure minimal granulation seen through wound bed and moderate Slough, no undermining or tunneling noted. Left calcaneus ulceration is a grade 2 diabetic foot ulcer with pressure component that has significant amount of slough and eschar noted no granulation seen within the wound bed, measuring approximately 3.7 x 3.1 x 0.3 cm no tunneling or undermining noted, left posterior ulceration is a stage II diabetic ulcer of the lower extremity with pressure component fat layer exposure, minimal slough noted and a large amount of granulation seen within the wound bed, measuring approximately 2.5 x 3 x 0.1 cm no undermining or tunneling noted, left anterior ulceration is a grade 2 diabetic ulceration of lower extremity with fat layer exposure, measuring approximately 1 x 3 x 0.1 cm large amount of granulation noted within the wound bed minimal slough, no tunneling or undermining noted, right medial ulceration is a grade 2 diabetic ulceration of the lower extremity, with fat layer exposure, large amount of granulation and minimal slough noted measuring approximately 2.5 x 2.8 x 0.2 cm , right posterior ulceration is a grade 2 diabetic ulcer of the lower extremity, measuring approximately 1 x 2.5 x 0.1 cm large granulation seen throughout wound bed minimal slough no undermining or tunneling. all other Skin color, texture, tugor normal, no rashes or lesions. Neurologic: Alert oriented x3 Results CBC & Chem 7: 02/19/20 06:11 02/19/20 06:11 Labs: Abnormal Lab Results - Last 24 Hours (Table) 02/18/20 02/18/20 02/18/20 Range/Units 07:15 16:39 20:22 RBC (3.80-5.40) m/uL Hgb (11.4-16.0) gm/dL Hct (34.0-46.0) % MCHC (31.0-37.0) g/dL RDW (11.5-15.5) % Lymphocytes # (1.0-4.8) k/uL Chloride (98-107) mmol/L Carbon Dioxide (22-30) mmol/L BUN (7-17) mg/dL Creatinine (0.52-1.04) mg/dL Glucose (74-99) mg/dL POC Glucose (mg/dL) 151 H 174 H (75-99) mg/dL Calcium (8.4-10.2) mg/dL Iron 20 L (50-170) ug/dL % Saturation 6.47 L (12.00-45.00) 02/19/20 02/19/20 02/19/20 Range/Units 06:11 06:11 07:20 RBC 3.22 L (3.80-5.40) m/uL Hgb 8.5 L (11.4-16.0) gm/dL Hct 29.3 L (34.0-46.0) % MCHC 29.2 L (31.0-37.0) g/dL RDW 16.7 H (11.5-15.5) % Lymphocytes # 0.6 L (1.0-4.8) k/uL Chloride 112 H (98-107) mmol/L Carbon Dioxide 20 L (22-30) mmol/L BUN 32 H (7-17) mg/dL Creatinine 1.31 H (0.52-1.04) mg/dL Glucose 138 H (74-99) mg/dL POC Glucose (mg/dL) 140 H (75-99) mg/dL Calcium 8.2 L (8.4-10.2) mg/dL Iron (50-170) ug/dL % Saturation (12.00-45.00) 02/19/20 Range/Units 11:42 RBC (3.80-5.40) m/uL Hgb (11.4-16.0) gm/dL Hct (34.0-46.0) % MCHC (31.0-37.0) g/dL RDW (11.5-15.5) % Lymphocytes # (1.0-4.8) k/uL Chloride (98-107) mmol/L Carbon Dioxide (22-30) mmol/L BUN (7-17) mg/dL Creatinine (0.52-1.04) mg/dL Glucose (74-99) mg/dL POC Glucose (mg/dL) 239 H (75-99) mg/dL Calcium (8.4-10.2) mg/dL Iron (50-170) ug/dL % Saturation (12.00-45.00) Microbiology - Last 24 Hours (Table) 02/16/20 15:55 Blood Culture - Preliminary Blood No Growth after 48 hours Assessment and Plan (1) Diabetic foot ulcer associated with type 2 diabetes mellitus, with fat layer exposed Current Visit: Yes Status: Acute Code(s): E11.621 - TYPE 2 DIABETES MELLITUS WITH FOOT ULCER; L97.502 - NON-PRS CHRONIC ULCER OTH PRT UNSP FOOT W FAT LAYER EXPOSED SNOMED Code(s): 3510204005717 (2) Diabetic ulcer of lower leg with fat layer exposed Current Visit: No Status: Acute Code(s): E11.622 - TYPE 2 DIABETES MELLITUS WITH OTHER SKIN ULCER; L97.902 - NON-PRS CHR ULC UNSP PRT OF UNSP LOW LEG W FAT LAYER EXPOSED SNOMED Code(s): 595237011 (3) Venous stasis ulcer of left lower leg with edema of left lower leg Current Visit: No Status: Acute Code(s): I83.029 - VARICOSE VEINS OF LEFT LOWER EXTREMITY W ULCER OF UNSP SITE; I83.892 - VARICOSE VEINS OF L LOW EXTREM WITH OTHER COMPLICATIONS; L97.929 - NON-PRS CHRONIC ULC UNSP PRT OF L LOW LEG W UNSP SEVERITY; R60.9 - EDEMA, UNSPECIFIED SNOMED Code(s): 63141074615575766 (4) Venous stasis ulcer of right lower leg with edema of right lower leg Current Visit: No Status: Acute Code(s): I83.019 - VARICOSE VEINS OF RIGHT LOWER EXTREMITY W ULCER OF UNSP SITE; I83.891 - VARICOSE VEINS OF R LOW EXTREM WITH OTHER COMPLICATIONS; L97.919 - NON-PRS CHRONIC ULC UNSP PRT OF R LOW LEG W UNSP SEVERITY; R60.9 - EDEMA, UNSPECIFIED SNOMED Code(s): 67880435538741997 Plan: We will utilize honey alginate to the left calcaneus due to the patient's ALLERGY to Santyl. Right gluteus ulceration utilize triad, bilateral lower extremity ulcerations utilize absorptive Silver. Continue with the Yusuf wrap keeping legs elevated. Patient to return to the wound care center for weekly wound visits when she is cleared by her primary doctor. At that time patient will undergo debridement of the left calcaneus. Patient verbalized understanding. Thank you for the consultation any questions please contact the wound care center DNP note has been reviewed and discussed with Dr. Solomon and the impression and plan of care has been directed as dictated.
[2020-02-19 16:52] LABS: Glucose,Whole Blood 123 mg/dL (75-99)
--- NOTE | 2020-02-19 17:47 | P.PN ---
Subjective Progress Note Date: 02/19/20 (delayed charting seen at 1145) Principal diagnosis: lower extremity redness Patient is a 59-year-old female with coronary artery disease, diabetes mellitus, GERD, hypertension, and dyslipidemia along with multiple other comorbid conditions who presented to the emergency department with bilateral recurrent cellulitis. Patient has a history of chronic venous insufficiency and bilateral lower extremity wounds and has been following at the wound care center. She reports that she was started on an antibiotic a week ago secondary to cellulitis and completed it but had minimal improvement in her legs were having increased drainage. On arrival to the ER she underwent an extensive evaluation. Her hemoglobin was 8.5 consistent with her chronic, potassium mildly elevated at 5 .2, creatinine 1.14 which is better than her baseline of 1.3, and coronavirus PCR was negative. She was admitted for bilateral lower extremity cellulitis and started on broad-spectrum antibiotics with IV vancomycin and cefazolin and infectious disease was consulted. By the morning of 02/26 her potassium of 5.3 and was given a dose of Kayexalate, repeat potassium had improved. He was noted to be mildly hypotensive and her Coreg and Lasix were held. She was seen by ID who discontinued her vancomycin but kept her on cefazolin as they felt that her lower extremity cellulitis was likely related to strep. They also recommended bilateral lower extremity Yusuf wraps. She was seen by nephrology who felt she had mild AK I with chronic kidney disease stage III. They did recommend checking iron studies that showed mild iron deficiency. She was noted to have bilateral heel eschars, left lower extremity posterior calf ulcer, and multiple other venous stasis ulcers. Wound care was consulted. Patient seen and examined at bedside. She complains of bilateral lower extremity pain that is worse in her heel. She denies any nausea, vomiting or diarrhea, or shortness of breath. She states she is extremely weak at home. She states that she had been seeing the wound care center but stopped doing this with concerns for the coronavirus. Since that point in time her lower extremity with gotten worse. Objective - Vital Signs Vital signs: Vital Signs Temp 97.6 F 02/19/20 14:26 Pulse 85 02/19/20 14:26 Resp 16 02/19/20 14:26 BP 108/67 02/19/20 14:26 Pulse Ox 96 02/19/20 14:26 Intake & Output 02/18/20 02/19/20 02/19/20 18:59 06:59 18:59 Intake Total 50 550 50 Balance 50 550 50 Weight 145.15 kg Intake: Intake, IV Titration 50 50 Amount ceFAZolin 2 gm In Sodium 50 50 Chloride 0.9% 50 ml @ 100 mls/hr IVPB Q8HR [facility] Rx# :[id number] Oral 550 Other: Voiding Method Incontinent Incontinent Incontinent - Exam General: Ill-appearing, disheveled, appears older than stated age, obese Derm: Bilateral lower extremities with redness, warmth, and skin sloughing, multiple areas of ulceration noted, large eschar left heel Head: atraumatic, normocephalic, symmetric Eyes: EOMI, no lid lag, anicteric sclera Mouth: no lip lesion, mucus membranes moist Cardiovascular: S1S2 reg, no murmur, positive posterior tibial pulse bilateral, Lungs: CTA bilateral, no rhonchi, no rales , no accessory muscle use Abdominal: soft, nontender to palpation, no guarding, no appreciable organomegaly Ext: no gross muscle atrophy, 2+ edema, no contractures Neuro: CN II-XI grossly intact, no focal neuro deficits Psych: Alert, oriented, appropriate affect - Labs CBC & Chem 7: 02/19/20 06:11 02/19/20 06:11 Labs: Abnormal Lab Results - Last 24 Hours (Table) 02/18/20 02/18/20 02/19/20 Range/Units 07:15 20:22 06:11 RBC 3.22 L (3.80-5.40) m/uL Hgb 8.5 L (11.4-16.0) gm/dL Hct 29.3 L (34.0-46.0) % MCHC 29.2 L (31.0-37.0) g/dL RDW 16.7 H (11.5-15.5) % Lymphocytes # 0.6 L (1.0-4.8) k/uL Chloride (98-107) mmol/L Carbon Dioxide (22-30) mmol/L BUN (7-17) mg/dL Creatinine (0.52-1.04) mg/dL Glucose (74-99) mg/dL POC Glucose (mg/dL) 174 H (75-99) mg/dL Calcium (8.4-10.2) mg/dL Iron 20 L (50-170) ug/dL % Saturation 6.47 L (12.00-45.00) 02/19/20 02/19/20 02/19/20 Range/Units 06:11 07:20 11:42 RBC (3.80-5.40) m/uL Hgb (11.4-16.0) gm/dL Hct (34.0-46.0) % MCHC (31.0-37.0) g/dL RDW (11.5-15.5) % Lymphocytes # (1.0-4.8) k/uL Chloride 112 H (98-107) mmol/L Carbon Dioxide 20 L (22-30) mmol/L BUN 32 H (7-17) mg/dL Creatinine 1.31 H (0.52-1.04) mg/dL Glucose 138 H (74-99) mg/dL POC Glucose (mg/dL) 140 H 239 H (75-99) mg/dL Calcium 8.2 L (8.4-10.2) mg/dL Iron (50-170) ug/dL % Saturation (12.00-45.00) 02/19/20 Range/Units 16:49 RBC (3.80-5.40) m/uL Hgb (11.4-16.0) gm/dL Hct (34.0-46.0) % MCHC (31.0-37.0) g/dL RDW (11.5-15.5) % Lymphocytes # (1.0-4.8) k/uL Chloride (98-107) mmol/L Carbon Dioxide (22-30) mmol/L BUN (7-17) mg/dL Creatinine (0.52-1.04) mg/dL Glucose (74-99) mg/dL POC Glucose (mg/dL) 123 H (75-99) mg/dL Calcium (8.4-10.2) mg/dL Iron (50-170) ug/dL % Saturation (12.00-45.00) Microbiology - Last 24 Hours (Table) 02/16/20 15:55 Blood Culture - Preliminary Blood No Growth after 48 hours Assessment and Plan Assessment: Possible bilateral lower extremity cellulitis, streptococcal, related to diabetic and venous stasis ulcers -ID recommendations appreciated, continue with cefazolin -IV fluids -Yusuf wrap, elevate legs Chronic anemia related to iron deficiency -resume oral iron therapy -CBC -Outpatient follow-up Mild LUCA on chronic kidney disease stage III -Urology recommendations appreciated Multiple diabetic foot ulcers, diabetic ulcer of the lower leg, and venous stasis ulcers of the lower leg -Wound care recommendations appreciated: Follow up weekly at the outpatient center and cleared by her primary doctor -Debridement of left heel 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 -Continue with Levemir -Sliding-scale insulin along with fixed dose at much lower than home dose -A1c -Neurontin Coronary artery disease -Plavix, Coreg, not chronically on statin therapy Chronic diastolic congestive heart failure currently compensated -Lasix if creatinine appears at baseline, resume if oaky with nephro -Coagulant-not chronically an YUSUF inhibitor and we'll not start Morbid obesity with BMI 54.9 -Outpatient structured weight loss hyperkalemia, resolved DVT prophylaxis: Heparin Discussed with: patient, nursing Anticipated discharge: 2- dyas Anticipated discharge place: anticipate SNF A total of 35 minutes was spent on the care of this complex patient more than 50% of the time was spent in counseling and care coordination.
--- NOTE | 2020-02-19 18:48 | PN ---
PROGRESS NOTE DATE OF SERVICE: 02/19/2020 REASON FOR FOLLOWUP: Bilateral lower extremity cellulitis and wounds. INTERVAL HISTORY: The patient is currently afebrile. The patient is breathing comfortably. Denies having any chest pain or shortness of breath or cough. Pain and discomfort to the leg has improved. PHYSICAL EXAMINATION: Blood pressure 108/67 with a pulse of 85, temperature 97.6. She is 96% on room air. General description is a middle-aged female lying in bed in no distress. RESPIRATORY SYSTEM: Unlabored breathing. Clear to auscultation anteriorly. HEART: S1, S2. Regular rate and rhythm. ABDOMEN: Soft. No tenderness. Bilateral leg swelling and redness have improved. She did have a wound to both heel areas, with more necrotic change to the left heel. LABS: Hemoglobin 8.5, white count 5.4. BUN of 32, creatinine 1.31. DIAGNOSTIC IMPRESSION AND PLAN: Patient with bilateral lower extremity cellulitis with bilateral heel wounds. Left heel did have a significant eschar. Local care to the left heel will be Medihoney/Santyl; to the right heel Aquacel Silver dressing. Continue with cefazolin. Finish therapy with oral antibiotic on discharge and continue supportive care. MMODL / IJN: [id number] /
[2020-02-19 20:10] LABS: Glucose,Whole Blood 156 mg/dL (75-99)
[2020-02-19] MEDS: INSULIN DETEMIR (LEVEMIR) 100 UNIT/ML SYR SQ SCH (20:45)
[2020-02-19] MEDS: ACETAMINOPHEN TAB 325 MG TAB PO PRN (20:46)
[2020-02-19] MEDS: GABAPENTIN 300 MG CAP PO SCH (20:46)
[2020-02-19] MEDS: HYDROPHILIC CREAM 180 GM TUBE TOPICAL SCH (20:47)
[2020-02-20 02:19] VITALS: PULSE 83
[2020-02-20 06:47] LABS: Glucose,Whole Blood 154 mg/dL (75-99)
[2020-02-20] MEDS: INSULIN ASPART (NovoLOG) 100 UNIT/ML VIAL SQ SCH ×4 (07:29→13:01)
[2020-02-20] MEDS: ACETAMINOPHEN TAB 325 MG TAB PO PRN (07:30)
[2020-02-20] MEDS: PANTOPRAZOLE 40 MG TABLET PO SCH (07:30)
[2020-02-20] MEDS: CARVEDILOL 6.25 MG TAB PO SCH (07:30)
[2020-02-20] MEDS: CLOPIDOGREL 75 MG TAB PO SCH (07:30)
[2020-02-20] MEDS: TRIAMCINOLONE 0.1% CREAM 80 GM TUBE TOPICAL SCH (07:31)
[2020-02-20] MEDS: HYDROPHILIC CREAM 180 GM TUBE TOPICAL SCH (07:31)
[2020-02-20] MEDS: NYSTATIN 100,000UNIT/GM CREAM 30 GM TUBE TOPICAL SCH (07:32)
[2020-02-20 07:43] LABS: AST 14 U/L (14-36); African American GFR (CKD) 54 (>60 ml/min/1.73 sqM); Anion Gap 8 mmol/L; Blood Urea Nitrogen 30 mg/dL (7-17); Calcium 8.4 mg/dL (8.4-10.2); Carbon Dioxide 20 mmol/L (22-30); Chloride 110 mmol/L (98-107); Glucose 142 mg/dL (74-99); Non-African American GFR(CKD) 46 (>60 ml/min/1.73 sqM); Potassium 4.5 mmol/L (3.5-5.1); Sodium 138 mmol/L (137-145); Total Bilirubin 0.4 mg/dL (0.2-1.3); Total Protein 6.7 g/dL (6.3-8.2)
[2020-02-20 07:44] LABS: ALT <6 U/L (4-34); Alkaline Phosphatase 125 U/L (38-126)
[2020-02-20 07:48] VITALS: BP 113/99; RESP 18; TEMP 97.9
[2020-02-20] MEDS ORDERED: FERROUS SULFATE 325 MG TAB PO SCH (09:00)
[2020-02-20] MEDS: HEPARIN SODIUM,PORCINE 5,000 UNIT/ML 1 ML VIAL SQ SCH (09:27)
--- NOTE | 2020-02-20 10:29 | P.PN ---
Subjective Patient is seen in follow-up for acute kidney injury on chronic kidney disease. GFR is at baseline. Oral intake is good. No vomiting or diarrhea. Feels tired. Vital signs are stable. General: The patient appeared well nourished and normally developed. HEENT: Head exam is unremarkable. Neck is without jugular venous distension. LUNGS: Lungs are clear to auscultation and percussion. Breath sounds decreased. HEART: Rate and Rhythm are regular. ABDOMEN: Soft, nontender. Obese. EXTREMITITES: Lower extremities wrapped. Tender to touch. Objective - Vital Signs Vital signs: Vital Signs Temp 97.9 F 02/20/20 07:00 Pulse 83 02/20/20 07:00 Resp 18 02/20/20 07:00 BP 113/99 02/20/20 07:00 Pulse Ox 95 02/20/20 07:00 Intake & Output 02/19/20 02/20/20 02/20/20 18:59 06:59 18:59 Intake Total 590 Output Total 700 500 Balance -110 -500 Weight 145.15 kg Intake: Intake, IV Titration 50 Amount ceFAZolin 2 gm In Sodium 50 Chloride 0.9% 50 ml @ 100 mls/hr IVPB Q8HR [facility] Rx# :[id number] Oral 540 Output: Urine 700 500 Other: Voiding Method Incontinent Incontinent Incontinent - Labs CBC & Chem 7: 02/19/20 06:11 02/20/20 07:01 Labs: Abnormal Lab Results - Last 24 Hours (Table) 02/19/20 02/19/20 02/19/20 Range/Units 11:42 16:49 20:08 Chloride (98-107) mmol/L Carbon Dioxide (22-30) mmol/L BUN (7-17) mg/dL Creatinine (0.52-1.04) mg/dL Glucose (74-99) mg/dL POC Glucose (mg/dL) 239 H 123 H 156 H (75-99) mg/dL Albumin (3.5-5.0) g/dL 02/20/20 02/20/20 Range/Units 06:46 07:01 Chloride 110 H (98-107) mmol/L Carbon Dioxide 20 L (22-30) mmol/L BUN 30 H (7-17) mg/dL Creatinine 1.26 H (0.52-1.04) mg/dL Glucose 142 H (74-99) mg/dL POC Glucose (mg/dL) 154 H (75-99) mg/dL Albumin 3.0 L (3.5-5.0) g/dL Microbiology - Last 24 Hours (Table) 02/16/20 15:55 Blood Culture - Preliminary Blood No Growth after 72 hours Assessment and Plan Plan: Assessment: 1. Mild acute kidney injury mostly prerenal secondary to infection. Creatinine stable at 1.26 today. 2. Chronic kidney disease stage III with baseline creatinine in the range of 1.1-1.3. Etiology is most likely diabetic kidney disease. 3. Lower extremity cellulitis maintained on antibiotics. 4. Metabolic acidosis secondary to acute kidney injury and IV fluids. Stable. 5. Anemia. Severe iron deficiency noted. Plan: Remains off IV fluids. Encouraged oral intake. Monitor bicarb. IV iron 3 doses. First dose today.
[2020-02-20] MEDS ORDERED: SODIUM FERRIC GLUCONAT-SUCROSE 125 MG in SODIUM CHLORIDE 0.9% 100 ML IVPB SCH (10:30)
[2020-02-20 11:38] LABS: Glucose,Whole Blood 150 mg/dL (75-99)
[2020-02-20 15:07] LABS: Hemoglobin A1C 7.8 % (4.0-6.0)
--- NOTE | 2020-02-20 16:02 | P.PN ---
Progress Note - Text Progress Note Date: 02/20/20 REASON FOR FOLLOWUP: Bilateral lower extremity cellulitis and wounds. INTERVAL HISTORY: The patient is afebrile. The patient is breathing comfortably. the pt denies any chest pain or shortness of breath or cough. Pain and discomfort to the leg has improved. PHYSICAL EXAMINATION: Blood pressure 113/99 with a pulse of 83, temperature 97.6. She is 95% on room air. General description is a middle-aged female lying in bed in no distress. RESPIRATORY SYSTEM: Unlabored breathing. Clear to auscultation anteriorly. HEART: S1, S2. Regular rate and rhythm. ABDOMEN: Soft. No tenderness. Bilateral leg swelling and redness have improved. She did have a wound to both heel areas, with more necrotic change to the left heel. LABS: Cr 1.26 DIAGNOSTIC IMPRESSION AND PLAN: Patient with bilateral lower extremity cellulitis with bilateral heel wounds. Left heel did have a significant eschar. Local care to the left heel will be Medihoney/Santyl; to the right heel Aquacel Silver dressing. Improved with cefazolin. Finish therapy with oral Keflex on discharge and continue supportive care.
--- NOTE | 2020-02-20 18:53 | P.DS ---
Providers Date of admission: 02/18/20 08:44 Expected date of discharge: 02/20/20 Attending physician: Aracelis Suggs MD Consults: 02/16/20 17:17 Consult Physician Routine Consulting Provider: Donavan Gibbs Consult Reason/Comments: cellulitis Do you want consulting provider notified?: Yes 02/17/20 16:43 Consult Physician Routine Consulting Provider: Marcelo Epperson Consult Reason/Comments: vince Do you want consulting provider notified?: Yes, Notify in am Primary care physician: Jason Garcia MD Hospital Course: Discharge Diagnosis: Possible bilateral lower extremity cellulitis, streptococcal, related to diabetic and venous stasis ulcers Chronic anemia related to iron deficiency Mild VINCE on chronic kidney disease stage III Multiple diabetic foot ulcers, diabetic ulcer of the lower leg, and venous stasis ulcers of the lower leg 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 Patient has a history of chronic venous insufficiency and bilateral lower extremity wounds and has been following at the wound care center. She reports that she was started on an antibiotic a week ago secondary to cellulitis and completed it but had minimal improvement in her legs were having increased drainage. On arrival to the ER she underwent an extensive evaluation. Her hemoglobin was 8.5 consistent with her chronic, potassium mildly elevated at 5.2, creatinine 1.14 which is better than her baseline of 1.3, and coronavirus PCR was negative. She was admitted for bilateral lower extremity cellulitis and started on broad-spectrum antibiotics with IV vancomycin and cefazolin and infectious disease was consulted. By the morning of 02/26 her potassium of 5.3 and was given a dose of Kayexalate, repeat potassium had improved. She was noted to be mildly hypotensive and her Coreg and Lasix were held. She was seen by ID who discontinued her vancomycin but kept her on cefazolin as they felt that her lower extremity cellulitis was likely related to strep. They also recommended bilateral lower extremity Yusuf wraps. She was seen by nephrology who felt she had mild VINCE with chronic kidney disease stage III. They did recommend checking iron studies that showed mild iron deficiency. She was noted to have bilateral heel eschars, left lower extremity posterior calf ulcer, and multiple other venous stasis ulcers. Wound care was consulted and made recommendations and wants to follow the patient weekly in the wound care center. Her cellulitis improved on IV cefazolin. She is determined stable for discharge. She'll complete a seven-day course of oral Keflex, which has been renally dosed. She'll continue with her wound care dressings as listed below in her plan of care. She'll follow-up with Dr. Pearce and continue to have her home health and private duty nursing. She reports that she will not go to the wound care clinic unless cleared by Dr. Garcia we discussed that her wounds need treatment or she will likely end up back in the hospital and with recurrent infection. Patient seen and examined at bedside. She is feeling slightly better, no nausea no vomiting, no diarrhea. She does not want go to rehab. She'll like to go home and continue with home health care. Vital signs reviewed and stable. General: Nontoxic, no distress, appears appropriate at stated age, morbidly obese Derm: Bilateral lower extremity dressings in place, redness, warmth, and skin sloughing decreased in the right lower extremity. Head: atraumatic, normocephalic, symmetric Eyes: EOMI, no lid lag, anicteric sclera Mouth: no lip lesion, mucus membranes moist Cardiovascular: S1S2 reg, no murmur, positive posterior tibial pulse bilateral, Lungs: CTA bilateral, no rhonchi, no rales , no accessory muscle use Abdominal: soft, nontender to palpation, no guarding, no appreciable organomegaly Ext: no gross muscle atrophy, no edema, no contractures Neuro: CN II-XI grossly intact, no focal neuro deficits Psych: Alert, oriented, appropriate affect A total of 35 minutes of time were spent preparing this complex discharge summary . Patient Condition at Discharge: Stable Plan - Discharge Summary Discharge Rx Participant: No New Discharge Prescriptions: New Cephalexin [Keflex] 500 mg PO Q8HR 7 Days #21 cap Nystatin 100,000Unit/gm Cream [Mycostatin Cream] 1 applic TOPICAL DAILY 15 Days #1 tube Continue Clopidogrel [Plavix] 75 mg PO DAILY Carvedilol [Coreg] 12.5 mg PO BID Insulin Detemir [Levemir Flextouch] 10 units SQ HS Potassium Chloride ER [K-Dur 20] 20 meq PO DAILY #30 tab INSULIN ASPART (NovoLOG) [NovoLOG (formulary)] 20 unit SQ AC-TID Gabapentin [Neurontin] 300 mg PO HS #3 capsule Ferrous Sulfate [Feosol] 325 mg PO DAILY Furosemide [Lasix] 20 mg PO DAILY Pantoprazole [Protonix] 40 mg PO DAILY Discontinued Collagenase [Santyl] 1 applic TOPICAL BID Discharge Medication List Carvedilol [Coreg] 12.5 mg PO BID 08/17/18 [History] Clopidogrel [Plavix] 75 mg PO DAILY 08/17/18 [History] Insulin Detemir [Levemir Flextouch] 10 units SQ HS 08/17/18 [History] Potassium Chloride ER [K-Dur 20] 20 meq PO DAILY #30 tab 01/03/19 [Rx] INSULIN ASPART (NovoLOG) [NovoLOG (formulary)] 20 unit SQ AC-TID 02/23/19 [History] Gabapentin [Neurontin] 300 mg PO HS #3 capsule 03/27/19 [Rx] Ferrous Sulfate [Feosol] 325 mg PO DAILY 04/12/19 [History] Furosemide [Lasix] 20 mg PO DAILY 11/07/19 [History] Pantoprazole [Protonix] 40 mg PO DAILY 02/16/20 [History] Cephalexin [Keflex] 500 mg PO Q8HR 7 Days #21 cap 02/20/20 [Rx] Nystatin 100,000Unit/gm Cream [Mycostatin Cream] 1 applic TOPICAL DAILY 15 Days #1 tube 02/20/20 [Rx] Follow up Appointment(s)/Referral(s): Jason Garcia MD [Primary Care Provider] - 1-2 days (office will call with the appointment time) [facility] [NON-STAFF] - 02/29/20 1:00 pm [facility] Vis[facility] Nurse, [NON-STAFF] - Patient Instructions/Handouts: Cellulitis (DC) Activity/Diet/Wound Care/Special Instructions: Activity: as tolerated Diet: carb consistent Wound Care: Right Leg- Apply moist and observed to silver, dry gauze, rolled gauze and secure with Yusuf wrap. Change the absorptive silver only on Wednesday Coccyx- Apply triad and foam border gauze changed daily. Left Heal- Apply honey alginate, saline moistened gauze, dry gauze, foam. Change daily Special Instructions: Please go to wound care clinic once weekly Discharge Disposition: HOME WITH HOME HEALTH SERVICES
== END 2020-02-20 15:39 | disposition home health service (06) | DRG 638 ==
LOC: EC 15:03 → 4SSUR 16:53 → OBSVTOIN 02-18 08:44
PROVIDERS: ADMIT Family Medicine; ATTEND Family Medicine
DX: E11.628 Type 2 diabetes mellitus with other skin complications (principal); L03.116 Cellulitis of left lower limb; L03.115 Cellulitis of right lower limb; E87.2 Acidosis; I13.0 Hypertensive heart and chronic kidney disease with heart failure and stage 1 through stage 4 chronic kidney disease, or unspecified chronic kidney disease; I50.32 Chronic diastolic (congestive) heart failure; L97.422 Non-pressure chronic ulcer of left heel and midfoot with fat layer exposed; L97.412 Non-pressure chronic ulcer of right heel and midfoot with fat layer exposed; L97.222 Non-pressure chronic ulcer of left calf with fat layer exposed; L97.919 Non-pressure chronic ulcer of unspecified part of right lower leg with unspecified severity; N39.0 Urinary tract infection, site not specified; Z68.43 Body mass index [BMI] 50.0-59.9, adult; B95.5 Unspecified streptococcus as the cause of diseases classified elsewhere; Z79.4 Long term (current) use of insulin; E11.22 Type 2 diabetes mellitus with diabetic chronic kidney disease; E11.621 Type 2 diabetes mellitus with foot ulcer; E11.622 Type 2 diabetes mellitus with other skin ulcer; E11.40 Type 2 diabetes mellitus with diabetic neuropathy, unspecified; D50.9 Iron deficiency anemia, unspecified; E66.01 Morbid (severe) obesity due to excess calories; E78.5 Hyperlipidemia, unspecified; E87.5 Hyperkalemia; F32.9 Major depressive disorder, single episode, unspecified; I25.10 Atherosclerotic heart disease of native coronary artery without angina pectoris; I25.2 Old myocardial infarction; Z11.59 Encounter for screening for other viral diseases; I83.018 Varicose veins of right lower extremity with ulcer other part of lower leg; I83.028 Varicose veins of left lower extremity with ulcer other part of lower leg; I87.2 Venous insufficiency (chronic) (peripheral); I87.8 Other specified disorders of veins; K21.9 Gastro-esophageal reflux disease without esophagitis; L98.499 Non-pressure chronic ulcer of skin of other sites with unspecified severity; L98.429 Non-pressure chronic ulcer of back with unspecified severity; M06.9 Rheumatoid arthritis, unspecified; N17.9 Acute kidney failure, unspecified; N18.3 Chronic kidney disease, stage 3 (moderate); Z79.02 Long term (current) use of antithrombotics/antiplatelets; Z79.51 Long term (current) use of inhaled steroids; Z79.82 Long term (current) use of aspirin; Z79.899 Other long term (current) drug therapy; Z82.49 Family history of ischemic heart disease and other diseases of the circulatory system; Z83.3 Family history of diabetes mellitus; Z87.891 Personal history of nicotine dependence; Z95.1 Presence of aortocoronary bypass graft; M19.90 Unspecified osteoarthritis, unspecified site; Z86.14 Personal history of Methicillin resistant Staphylococcus aureus infection; Z98.42 Cataract extraction status, left eye; Z98.41 Cataract extraction status, right eye; Z60.2 Problems related to living alone; Z84.1 Family history of disorders of kidney and ureter; Z82.0 Family history of epilepsy and other diseases of the nervous system; Z82.3 Family history of stroke; F40.240 Claustrophobia; Z86.73 Personal history of transient ischemic attack (TIA), and cerebral infarction without residual deficits
CPT/HCPCS: 36415; 80048; 80053; 82728; 83036; 83540; 83550; 83605; 83735; 85025; 87040; 87635; 93970; 96374; 99285

== ENCOUNTER → 2020-07-02 | Outpatient (CLI) | payer MEDICARE, OTHER | END | disposition home or self-care (01) | LOC: LABWHC1 12:41 | PROVIDERS: ATTEND Ophthalmology | DX: Z01.818 Encounter for other preprocedural examination (principal); Z20.828 Contact with and (suspected) exposure to other viral communicable diseases | CPT/HCPCS: U0003; C9803 ==

== ENCOUNTER → 2020-08-27 | Outpatient (CLI) | payer MEDICARE, OTHER | END | disposition home or self-care (01) | LOC: LABWHC1 13:14 | PROVIDERS: ATTEND General Practice | DX: Z20.828 Contact with and (suspected) exposure to other viral communicable diseases (principal) | CPT/HCPCS: U0003; C9803 ==

== ENCOUNTER 2020-10-09 13:11 | Inpatient (IN) | payer MEDICARE, OTHER ==
[2020-10-09] MEDS ORDERED: ONDANSETRON 4 MG/2 ML VIAL IVP STA (13:43)
--- NOTE | 2020-10-09 13:46 | ED ---
General Adult HPI - General Chief complaint: Weakness Stated complaint: Weakness, Nausea, Diarrhea Time Seen by Provider: 10/09/20 13:20 Source: patient Mode of arrival: wheelchair Limitations: no limitations - History of Present Illness Initial comments: Dictation was produced using [employer] dictation software. please excuse any grammatical, word or spelling errors. This patient was cared for during a federal and state declared state of emergenc y secondary to Covid 19 Chief Complaint: 59-year-old female multiple comorbidities presents to the emergency department for generalized weakness, leg cramps and dry heaving History of Present Illness: Is a 59-year-old female she has multiple comorbidities. Patient [facility] where she was present for one dressings changed to her left lower extremity. She was evaluated there and complained to staff that she has been having dry heaves leg cramps and weakness that started over the last 4 days. She denies any fever or constitutional symptoms. She states the dry heaving. Patient otherwise has been feeling generally weak. She states that her legs feel very heavy. She ambulates normally on a motorized scooter. She is very poorly debilitated crackly. The ROS documented in this emergency department record has been reviewed and confirmed by me. Those systems with pertinent positive or negative responses have been documented in the HPI. All other systems are other negative and/or noncontributory. PHYSICAL EXAM: General Impression: Alert and oriented x3, not in acute distress, morbidly obese HEENT: Normocephalic atraumatic, extra-ocular movements intact, pupils equal and reactive to light bilaterally, mucous membranes moist. Cardiovascular: Heart regular rate and rhythm Chest: Able to complete full sentences, no retractions, no tachypnea Abdomen: abdomen soft, non-tender, non-distended, no organomegaly Musculoskeletal: Pulses present and equal in all extremities, no peripheral edema Lower extremities: Bilateral lower extremity dressing clean dry intact she has a wound VAC tubing going to the distal left lower extremity Motor: no focal deficits noted Neurological: CN II-XII grossly intact, no focal motor or sensory deficits noted Skin: Intact with no visualized rashes Psych: Normal affect and mood ED course: 59 y Old female presents with dry heaving and generalized weakness. Signs upon arrival are within acceptable limits. Patient last had her dressings change last week. Dressings were removed. Patient has chronic wounds to the posterior left lower extremity with purulent discharge. Very malodorous. Laboratory evaluation obtained. Leukocytosis of 15.6. Hemoglobin 7.3 with signs of microcytic anemia. Coag panel is unremarkable. Metabolic panel shows sodium 1:30, elevated renal markers which slightly above baseline. Rest of labs are within acceptable limits. Clinical presentation concerning for seizures versus sepsis. Her left lower extremity wound does appear to be infected. Patient given vancomycin and Zosyn per she is diabetic. She does report constitutional symptoms however she is afebrile. Patient will be admitted with consultation to infectious disease. Patient will be admitted to [facility]. EKG interpretation: Ventricular rate 83, sinus rhythm, MT interval 210, QRS 74, QTC 467. No MT prolongation, no QTC prolongation, no ST or T-wave changes noted. Overall, this EKG is unremarkable - Related Data Home Medications Medication Instructions Recorded Confirmed Carvedilol [Coreg] 12.5 mg PO BID 08/17/18 02/16/20 Clopidogrel [Plavix] 75 mg PO DAILY 08/17/18 02/16/20 Insulin Detemir [Levemir Flextouch] 10 units SQ HS 08/17/18 02/16/20 Insulin Aspart [NovoLOG Flexpen] 10 units SQ DAILY 10/09/20 10/09/20 traMADol-ACETAMINOP 37.5-325MG 1 tab PO TID PRN 10/09/20 10/09/20 [Ultracet] Previous Rx's Medication Instructions Recorded Gabapentin [Neurontin] 300 mg PO HS #3 capsule 03/27/19 Allergies Allergy/AdvReac Type Severity Reaction Status Date / Time collagenase Clostridium Allergy Unknown Verified 10/09/20 15:11 histolyticu [From Santyl] latex Allergy Rash/Hives Verified 10/09/20 15:11 pollen extracts AdvReac Mild Itching Verified 10/09/20 15:11 Review of Systems ROS Statement: Those systems with pertinent positive or pertinent negative responses have been documented in the HPI. ROS Other: All systems not noted in ROS Statement are negative. Past Medical History Past Medical History: Coronary Artery Disease (CAD), Heart Failure, Diabetes Mellitus, GERD/Reflux, Hyperlipidemia, Hypertension, Myocardial Infarction (IN), Osteoarthritis (OA), Renal Disease, Rheumatoid Arthritis (RA), Skin Disorder, Vascular Disorder Additional Past Medical History / Comment(s): Chronic bilateral venous stasis ulcers, pt states she currently has L lower leg wound being tx at [facility] and that R lower leg wound nearly healed, bilateral lower leg cellulitis, past bilateral heel wounds, IDDM type II, neuropathy bilateral legs/feet, CKD stage III, Chronic back and bilateral leg pain, bilateral cataracts, gallstones, rash on bilateral shoulders/chest and L leg, R breast slightly enlarged-punch skin bx negative. Last Myocardial Infarction Date:: 2011 History of Any Multi-Drug Resistant Organisms: ESBL, MRSA Date of last positivie culture/infection: 01/26/20 ESBL / 03/20/19 MRSA MDRO Source:: ESBL URINE/ MRSA BLOOD Past Surgical History: Section, Section, Coronary Bypass/CABG, Heart Catheterization, Uterine Ablation Additional Past Surgical History / Comment(s): 2011 CABG 2 vessel, D&C, C- sections x 2, bilateral lower leg/heels debrided. Past Anesthesia/Blood Transfusion Reactions: No Reported Reaction Additional Past Anesthesia/Blood Transfusion Reaction / Comment(s): marcy sterphobia Past Psychological History: Depression Smoking Status: Never smoker Past Alcohol Use History: None Reported Past Drug Use History: None Reported - Past Family History Mother Additional Family Medical History / Comment(s): anuerysm Father Family Medical History: CVA/TIA, Diabetes Mellitus, Myocardial Infarction ([place]) Sister(s) Additional Family Medical History / Comment(s): one sister had "hole in her heart" and a kidney transplant and another sister had ms. General Exam Limitations: no limitations Course Vital Signs 10/09/20 13:14 Temperature 98.4 F Pulse Rate 88 Respiratory 18 Rate Blood Pressure 123/69 O2 Sat by Pulse 99 Oximetry Medical Decision Making - Lab Data Result diagrams: 10/09/20 14:00 10/09/20 14:00 Lab Results 10/09/20 10/09/20 10/09/20 Range/Units 14:00 14:00 14:00 WBC 15.6 H (3.8-10.6) k/uL RBC 3.18 L (3.80-5.40) m/uL Hgb 7.3 L (11.4-16.0) gm/dL Hct 24.5 L (34.0-46.0) % MCV 77.2 L (80.0-100.0) fL MCH 23.0 L (25.0-35.0) pg MCHC 29.8 L (31.0-37.0) g/dL RDW 19.2 H (11.5-15.5) % Plt Count 345 (150-450) k/uL MPV 6.9 Neutrophils % 93 % Lymphocytes % 3 % Monocytes % 3 % Eosinophils % 1 % Basophils % 0 % Neutrophils # 14.5 H (1.3-7.7) k/uL Lymphocytes # 0.4 L (1.0-4.8) k/uL Monocytes # 0.5 (0-1.0) k/uL Eosinophils # 0.1 (0-0.7) k/uL Basophils # 0.0 (0-0.2) k/uL Hypochromasia Marked Anisocytosis Slight Microcytosis Slight PT 13.8 H (9.0-12.0) sec INR 1.4 H (<1.2) APTT 27.4 (22.0-30.0) sec Sodium 130 L (137-145) mmol/L Potassium 5.7 H (3.5-5.1) mmol/L Chloride 104 (98-107) mmol/L Carbon Dioxide 23 (22-30) mmol/L Anion Gap 3 mmol/L BUN 41 H (7-17) mg/dL Creatinine 1.61 H (0.52-1.04) mg/dL Est GFR (CKD-EPI)AfAm 40 (>60 ml/min/1.73 sqM) Est GFR (CKD-EPI)NonAf 35 (>60 ml/min/1.73 sqM) Glucose 239 H (74-99) mg/dL Plasma Lactic Acid Sylvester (0.7-2.0) mmol/L Calcium 7.3 L (8.4-10.2) mg/dL Magnesium 1.9 (1.6-2.3) mg/dL Total Bilirubin 0.9 (0.2-1.3) mg/dL AST 17 (14-36) U/L ALT 8 (4-34) U/L Alkaline Phosphatase 106 (38-126) U/L Creatine Kinase 30 (30-135) U/L Troponin I (0.000-0.034) ng/mL Total Protein 5.7 L (6.3-8.2) g/dL Albumin 2.2 L (3.5-5.0) g/dL 10/09/20 10/09/20 Range/Units 14:00 14:00 WBC (3.8-10.6) k/uL RBC (3.80-5.40) m/uL Hgb (11.4-16.0) gm/dL Hct (34.0-46.0) % MCV (80.0-100.0) fL MCH (25.0-35.0) pg MCHC (31.0-37.0) g/dL RDW (11.5-15.5) % Plt Count (150-450) k/uL MPV Neutrophils % % Lymphocytes % % Monocytes % % Eosinophils % % Basophils % % Neutrophils # (1.3-7.7) k/uL Lymphocytes # (1.0-4.8) k/uL Monocytes # (0-1.0) k/uL Eosinophils # (0-0.7) k/uL Basophils # (0-0.2) k/uL Hypochromasia Anisocytosis Microcytosis PT (9.0-12.0) sec INR (<1.2) APTT (22.0-30.0) sec Sodium (137-145) mmol/L Potassium (3.5-5.1) mmol/L Chloride (98-107) mmol/L Carbon Dioxide (22-30) mmol/L Anion Gap mmol/L BUN (7-17) mg/dL Creatinine (0.52-1.04) mg/dL Est GFR (CKD-EPI)AfAm (>60 ml/min/1.73 sqM) Est GFR (CKD-EPI)NonAf (>60 ml/min/1.73 sqM) Glucose (74-99) mg/dL Plasma Lactic Acid Sylvester 1.8 (0.7-2.0) mmol/L Calcium (8.4-10.2) mg/dL Magnesium (1.6-2.3) mg/dL Total Bilirubin (0.2-1.3) mg/dL AST (14-36) U/L ALT (4-34) U/L Alkaline Phosphatase (38-126) U/L Creatine Kinase (30-135) U/L Troponin I <0.012 (0.000-0.034) ng/mL Total Protein (6.3-8.2) g/dL Albumin (3.5-5.0) g/dL Disposition Clinical Impression: Cellulitis Disposition: ADMITTED IP TO THIS HOSP Condition: Fair Referrals: Jason Garcia MD [Primary Care Provider] - 1-2 days Decision Time: 15:17
[2020-10-09 14:32] LABS: Anisocytosis Slight; Basophils % (A) 0 %; Eosinophils # (A) 0.1 k/uL (0-0.7); Eosinophils % (A) 1 %; HCT 24.5 % (34.0-46.0); HGB 7.3 gm/dL (11.4-16.0); Hypochromasia Marked; Lymphocytes # (A) 0.4 k/uL (1.0-4.8); Lymphocytes % (A) 3 %; MCHC 29.8 g/dL (31.0-37.0); MCV 77.2 fL (80.0-100.0); Mean Platelet Volume 6.9; Microcytosis Slight; Monocytes # (A) 0.5 k/uL (0-1.0); Monocytes % (A) 3 %; Neutrophils # (A) 14.5 k/uL (1.3-7.7); Neutrophils % (A) 93 %; Platelet Count 345 k/uL (150-450); RBC 3.18 m/uL (3.80-5.40); RDW 19.2 % (11.5-15.5); WBC 15.6 k/uL (3.8-10.6)
[2020-10-09 14:42] LABS: Albumin 2.2 g/dL (3.5-5.0); Calcium 7.3 mg/dL (8.4-10.2); INR 1.4 (<1.2); Magnesium 1.9 mg/dL (1.6-2.3); Partial Thromboplastin Time 27.4 sec (22.0-30.0); Potassium 5.7 mmol/L (3.5-5.1); Prothrombin Time 13.8 sec (9.0-12.0); Total Bilirubin 0.9 mg/dL (0.2-1.3); Total Protein 5.7 g/dL (6.3-8.2)
[2020-10-09] MEDS ORDERED: PIPERACILLIN-TAZOBACTAM 3.375 GM in SODIUM CHLORIDE 0.9% 100 ML IVPB STA (15:08)
[2020-10-09] MEDS ORDERED: VANCOMYCIN IV PER PHARMACY 1 EACH MISC MISCELLANE PRN (15:08)
[2020-10-09] MEDS ORDERED: SODIUM CHLORIDE 0.9% 1,000 ML IV STA (15:36)
[2020-10-09] MEDS ORDERED: NALOXONE 0.4 MG/ML 1 ML VIAL IV PRN ×2 (15:36→16:07)
[2020-10-09] MEDS ORDERED: VANCOMYCIN 2,500 MG in SODIUM CHLORIDE 0.9% 500 ML 500 ML IVPB ONE (16:00)
[2020-10-09] MEDS ORDERED: MORPHINE SULFATE 2 MG/ML SYRINGE IV PRN (16:07)
[2020-10-09] MEDS ORDERED: SODIUM POLYSTYRENE SULFONATE 15 GM/60 ML BOTTLE PO STA (16:40)
--- NOTE | 2020-10-09 16:47 | P.HPIM ---
History of Present Illness H&P Date: 10/09/20 Chief Complaint: Wound infection 59-year-old female history of multiple comorbidities including diabetes type 2, chronic left leg venous stasis ulcer, chronic kidney disease stage III, chronic diastolic congestive heart failure, morbid obesity presents to the emergency department for 1 week hx of generalized weakness, leg cramps and dry heaving. In addition she has been having worsening pain in the whole left leg. Any movement of the left leg will cause her severe pain. She states that her legs feel very heavy. [facility] today for dressings environmental change analyst the left leg ulcer. When the ulcer was evaluated by the staff patient was sent to the emergency department for IV antibiotics treatment. The ulcer has been foul-smelling, has yellow discharge with some erythema around the edges. Patient noted worsening of the ulcer over the past 1 week. She states that a left foot wound vac was placed by the wound doctor she follows up with about a week ago. She denies any fever. Has chronic diarrhea, no changes. She ambulates normally on a motorized scooter and she is able to pivot. Laboratory evaluation in the ER showed leukocytosis of 15.6. Hemoglobin 7.3 with low MCV at 77. INR 1.4. Metabolic panel shows sodium 130, K 5.7, Cr 1.6. Rest of labs are within acceptable limits. In the emergency department patient was given vancomycin and Zosyn and was subsequently admitted for further management. Review of Systems Complete review of system performed, pertinent positives per HPI, otherwise negative. Past Medical History Past Medical History: Coronary Artery Disease (CAD), Heart Failure, Diabetes Mellitus, GERD/Reflux, Hyperlipidemia, Hypertension, Myocardial Infarction ([place]), Osteoarthritis (OA), Renal Disease, Rheumatoid Arthritis (RA), Skin Disorder, Vascular Disorder Additional Past Medical History / Comment(s): Chronic bilateral venous stasis ulcers, pt states she currently has L lower leg wound being tx at [facility] and that R lower leg wound nearly healed, bilateral lower leg cellulitis, past bilateral heel wounds, IDDM type II, neuropathy bilateral legs/feet, CKD stage III, Chronic back and bilateral leg pain, bilateral cataracts, gallstones, rash on bilateral shoulders/chest and L leg, R breast slightly enlarged-punch skin bx negative. Last Myocardial Infarction Date:: 2011 History of Any Multi-Drug Resistant Organisms: ESBL, MRSA Date of last positivie culture/infection: 01/26/20 ESBL / 03/20/19 MRSA MDRO Source:: ESBL URINE/ MRSA BLOOD Past Surgical History: Section, Section, Coronary Bypass/CABG, Heart Catheterization, Uterine Ablation Additional Past Surgical History / Comment(s): 2011 CABG 2 vessel, D&C, C- sections x 2, bilateral lower leg/heels debrided. Past Anesthesia/Blood Transfusion Reactions: No Reported Reaction Additional Past Anesthesia/Blood Transfusion Reaction / Comment(s): clausterphobia Past Psychological History: Depression Smoking Status: Never smoker Past Alcohol Use History: None Reported Past Drug Use History: None Reported - Past Family History Mother Additional Family Medical History / Comment(s): anuerysm Father Family Medical History: CVA/TIA, Diabetes Mellitus, Myocardial Infarction ([place]) Sister(s) Additional Family Medical History / Comment(s): one sister had "hole in her heart" and a kidney transplant and another sister had ms. Medications and Allergies Home Medications Medication Instructions Recorded Confirmed Type Carvedilol [Coreg] 12.5 mg PO BID 08/17/18 10/09/20 History Clopidogrel [Plavix] 75 mg PO DAILY 08/17/18 10/09/20 History Insulin Detemir [Levemir Flextouch] 10 units SQ HS 08/17/18 10/09/20 History Gabapentin [Neurontin] 300 mg PO HS #3 capsule 03/27/19 10/09/20 Rx Insulin Aspart [NovoLOG Flexpen] 10 units SQ DAILY 10/09/20 10/09/20 History traMADol-ACETAMINOP 37.5-325MG 1 tab PO TID PRN 10/09/20 10/09/20 History [Ultracet] Allergies Allergy/AdvReac Type Severity Reaction Status Date / Time collagenase Clostridium Allergy Unknown Verified 10/09/20 15:11 histolyticu [From Santyl] latex Allergy Rash/Hives Verified 10/09/20 15:11 pollen extracts AdvReac Mild Itching Verified 10/09/20 15:11 Physical Exam Vitals: Vital Signs Temp Pulse Resp BP Pulse Ox 10/09/20 13:14 98.4 F 88 18 123/69 99 Intake and Output 10/09/20 10/09/20 10/09/20 06:59 14:59 22:59 Other: Weight 145.15 kg Constitutional: No acute distress, conversant, pleasant. Pale. Eyes:Anicteric sclerae, moist conjunctiva, no lid-lag, PERRLA, ENMT: Oropharynx clear, no erythema, exudates Neck: Supple, FROM, no masses, or JVD, No carotid bruits, No thyromegaly Lungs: Clear to auscultation, Clear to percussion, Normal respiratory effort, no accessory muscle use Cardiovascular: Heart regular in rate and rhythm, No murmurs, gallops, or rubs, No peripheral edema Abdominal: Soft, Nontender, no guarding, rebound or rigidity, Normoactive bowel sounds, No hepatomegaly, No splenomegaly, No palpable mass Skin: Chronic skin thickening and ulcers in the left leg with erythematous edges and yellowish discharge. Wound vac present on the left foot, dorsal aspect. Very malodorous. Extremities: No digital cyanosis, No clubbing. Psychiatric: Alert and oriented to person, place and time, appropriate affect, intact judgement Neuro: Bilateral leg weakness, Sensation to light touch grossly present throughout, Cranial nerves II-XII grossly intact, no focal sensory deficits Results CBC & Chem 7: 10/09/20 14:00 10/09/20 14:00 Labs: Abnormal Lab Results - Last 24 Hours (Table) 10/09/20 10/09/20 10/09/20 Range/Units 14:00 14:00 14:00 WBC 15.6 H (3.8-10.6) k/uL RBC 3.18 L (3.80-5.40) m/uL Hgb 7.3 L (11.4-16.0) gm/dL Hct 24.5 L (34.0-46.0) % MCV 77.2 L (80.0-100.0) fL MCH 23.0 L (25.0-35.0) pg MCHC 29.8 L (31.0-37.0) g/dL RDW 19.2 H (11.5-15.5) % Neutrophils # 14.5 H (1.3-7.7) k/uL Lymphocytes # 0.4 L (1.0-4.8) k/uL PT 13.8 H (9.0-12.0) sec INR 1.4 H (<1.2) Sodium 130 L (137-145) mmol/L Potassium 5.7 H (3.5-5.1) mmol/L BUN 41 H (7-17) mg/dL Creatinine 1.61 H (0.52-1.04) mg/dL Glucose 239 H (74-99) mg/dL Calcium 7.3 L (8.4-10.2) mg/dL Total Protein 5.7 L (6.3-8.2) g/dL Albumin 2.2 L (3.5-5.0) g/dL Assessment and Plan Plan: Acute left lower extremity cellulitis, acute on chronic venous stasis ulceration of the left lower extremity, leukocytosis. Start Zosyn and vancomycin Monitor temperature Monitor WBC Morphine IV for pain prn Consult surgery for possible debridement Consult vascular surgery Consult ID service Acute on chronic anemia Likely worsening of anemia of chronic disease, also has a history of iron deficiency anemia Check iron profile We'll transfuse 1 unit of packed red blood cells Recheck hemoglobin in the morning Diabetes type 2 Continue Lantus 10 units daily Sliding scale insulin with blood sugar checks every before meals and at bedtime Mild LUCA on CKD 3, hyperkalemia Avoid nephrotoxic medications Recheck creatinine in the morning We'll give 1 dose of Kayexalate 30 g, follow-up K in the morning Coronary artery disease -Hold Plavix due to anemia -Continue coreg, not chronically on statin therapy Chronic diastolic congestive heart failure currently compensated -Would benefit from diuresis once cr stabilizes Morbid obesity with BMI 54.9 -Outpatient structured weight loss Admitted to inpatient, expected length of stay >2 midnights.
[2020-10-09 17:18] LABS: Glucose,Whole Blood 211 mg/dL (75-99)
[2020-10-09] MEDS: INSULIN ASPART (NovoLOG) 100 UNIT/ML VIAL SQ SCH ×2 (17:39→20:31)
[2020-10-09 20:12] LABS: Glucose,Whole Blood 207 mg/dL (75-99)
[2020-10-09] MEDS: carvediloL 12.5 MG TAB PO SCH (20:27)
[2020-10-09] MEDS: INSULIN DETEMIR (LEVEMIR) 100 UNIT/ML SYR SQ SCH (20:31)
[2020-10-09] MEDS: GABAPENTIN 300 MG CAP PO SCH (20:32)
[2020-10-09] MEDS: SODIUM CHLORIDE 0.9% 1,000 ML IV SCH (20:32)
[2020-10-10] MEDS ORDERED: HEPARIN SODIUM,PORCINE 5,000 UNIT/ML 1 ML VIAL SQ SCH
[2020-10-10] MEDS ORDERED: PIPERACILLIN-TAZOBACTAM 3.375 GM in SODIUM CHLORIDE 0.9% 100 ML IVPB SCH ×2
[2020-10-10] MEDS: AMPICILLIN-SULBACTAM 3 GM in SODIUM CHLORIDE 0.9% 100 ML IVPB SCH ×4 (00:47→17:48)
--- NOTE | 2020-10-10 01:32 | CONS ---
CONSULTATION DATE OF SERVICE: 10/09/2020 DIAGNOSTIC IMPRESSION AND PLAN: Left lower extremity wound and cellulitis. HISTORY OF PRESENT ILLNESS: The patient is a 59-year-old female with past medical history significant for chronic nonhealing wound to the left lower extremity under care of Ana at [facility]. The patient presented to [facility] for dressing change and noted to have significant worsening of the wound and concern for secondary cellulitis for which the patient has been sent to the ER for admission and IV antibiotic therapy. The patient mentioned her left leg has been getting more painful and swollen and red over the last one week. The patient described the pain to be more of a throbbing in nature, almost 7 to 8/10 no radiation. The patient did have some foul-smelling drainage. The patient denies having any fever or chills. No chest pain, shortness of breath or cough. No abdominal pain or any diarrhea. On presentation to the hospital, the patient was afebrile. The patient did have white count of 15.6 with a left shift. Creatinine was 1.61. Liver enzymes are normal. Blood culture has been obtained which is currently pending. The patient was started on vancomycin and Zosyn and has been admitted to the hospital. Infectious Disease was consulted for further management of antibiotic therapy. REVIEW OF SYSTEMS: Positive points have been mentioned in HPI. Rest of systems are negative. PAST MEDICAL HISTORY: Her past medical history of coronary artery disease, diabetes mellitus, gastroesophageal reflux disease, hypertension, hyperlipidemia, TX, osteoarthritis, rheumatoid arthritis, previous history of ESBL and MRSA infection. PAST SURGICAL HISTORY: , coronary bypass grafting, PTCA with stent, ureter ablation. SOCIAL HISTORY: No history of smoking, drinking or drug use. FAMILY HISTORY: Mother with history of aneurysm. Father history of diabetes and TX. ALLERGIES: COLLAGEN, INSULIN, LATEX, POLLEN EXTRACT. MEDICATIONS: Include the patient is currently on Zosyn, vancomycin, Coreg, Neurontin, NovoLog, Levemir, morphine sulfate, Narcan, Zofran and IV fluid. PHYSICAL EXAMINATION: Her blood pressure is 100/49 with a pulse of 79. Temperature 98.6. She is 96% on room air. General description is a middle-aged female lying in bed in no distress. No tachypnea or accessory muscles of respiration use. HEENT: Examination shows pallor. No scleral icterus. Oral mucous membranes dry. Neck trachea central. No megaly. LUNGS: Unlabored breathing. Clear to auscultation anteriorly. No wheeze. Heart is S1, S2. Regular rate and rhythm. ABDOMEN: Soft, no tenderness. No guarding. No rigidity. EXTREMITIES: Left leg posterior wound significantly deep with slough tissue surrounding swelling and minimal redness and foul smelling drainage, Neurological: Patient is awake, alert, oriented times three. Mood and affect normal. LABS: Hemoglobin 7.1, white count 15.6, BUN of 41, creatinine 1.61. DIAGNOSTIC IMPRESSION AND PLAN: 1. Patient with extensive left lower extremity venous Doppler with secondary cellulitis. Need to cover for both gram-positive skin christo as well as gram- negative pathogen. 2. The patient mild renal insufficiency has vancomycin and especially Zosyn combination. PLAN: 1. Local wound culture . 2. We will discuss further evaluation deep debridement and Vancomycin pharmacy to dose target of 15 while watching kidney function closely. 3. Discontinue Zosyn and add Unasyn 3 g q.6h. 4. We will follow on clinical condition and culture to further adjust medication if needed. Thank you for this consultation. Will follow this patient along with you. MMODL / IJN: [id number] /
[2020-10-10] MEDS: traMADol-ACETAMINOP 37.5-325MG 1 EACH TAB PO PRN ×2 (04:35→20:41)
[2020-10-10 06:37] LABS: % Iron Saturation 4.81 (12.00-45.00)
[2020-10-10 07:29] LABS: Glucose,Whole Blood 61 mg/dL (75-99)
[2020-10-10] MEDS: INSULIN ASPART (NovoLOG) 100 UNIT/ML VIAL SQ SCH ×4 (07:33→20:38)
[2020-10-10 07:39] LABS: Glucose,Whole Blood 59 mg/dL (75-99)
[2020-10-10] MEDS: carvediloL 12.5 MG TAB PO SCH ×2 (07:41→20:38)
[2020-10-10 07:49] LABS: Glucose,Whole Blood 55 mg/dL (75-99)
[2020-10-10 08:30] LABS: Glucose,Whole Blood 81 mg/dL (75-99)
[2020-10-10 08:30] LABS: Glucose,Whole Blood 53 mg/dL (75-99)
[2020-10-10 10:28] LABS: ALT <8 U/L (8-44); AST 11 U/L (13-35); African American GFR (CKD) 40.2 (60.0-200.0); Albumin/Globulin Ratio 0.81 (1.60-3.17); Alkaline Phosphatase 115 U/L (41-126); BUN/Creat Ratio 26.88 Ratio (12.00-20.00); Calcium 7.4 mg/dL (8.7-10.3); Carbon Dioxide 23.1 mmol/L (21.6-31.8); Chloride 103 mmol/L (96-109); Globulin 3.1 g/dL (1.6-3.3); Glucose 51 mg/dL (70-110); Magnesium 1.8 mg/dL (1.5-2.4); Non-African American GFR(CKD) 34.7 (60.0-200.0); Sodium 136 mmol/L (135-145); Total Bilirubin 0.7 mg/dL (0.2-1.2); Total Protein 5.6 g/dL (6.2-8.2)
[2020-10-10 11:36] LABS: Glucose,Whole Blood 117 mg/dL (75-99)
[2020-10-10] MEDS: SODIUM CHLORIDE 0.9% 1,000 ML IV SCH (12:35)
--- NOTE | 2020-10-10 12:58 | P.GSCN ---
History of Present Illness Consult date: 10/10/20 History of present illness: Patient is a 59-year-old female with possible history including type 2 diabetes, stage III chronic kidney disease, diastolic congestive heart failure, morbid obesity, general immobilization, history of myocardial infarction, coronary artery disease who has been treated at the wound care center for bilateral lower extremity venous stasis wounds. She states that she was seen by the wound care and sent in recently for questionable infection of the left lower extremity. She had a wound VAC that was initially on this area which has now been removed. She states she has had these wounds for many years and adamantly refuses any possibility of amputation as it has previously been proposed to her. She states she's been having some intermittent chills but no proper fever. She denies any nausea or vomiting. Past Medical History Past Medical History: Coronary Artery Disease (CAD), Heart Failure, Diabetes Mellitus, GERD/Reflux, Hyperlipidemia, Hypertension, Myocardial Infarction ([place]), Osteoarthritis (OA), Renal Disease, Rheumatoid Arthritis (RA), Skin Disorder, Vascular Disorder Additional Past Medical History / Comment(s): Chronic bilateral venous stasis ulcers, pt states she currently has L lower leg wound being tx at [facility] and that R lower leg wound nearly healed, bilateral lower leg cellulitis, past bilateral heel wounds, IDDM type II, neuropathy bilateral legs/feet, CKD stage III, Chronic back and bilateral leg pain, bilateral cataracts, gallstones, rash on bilateral shoulders/chest and L leg, R breast slightly enlarged-punch skin bx negative. Last Myocardial Infarction Date:: 2011 History of Any Multi-Drug Resistant Organisms: ESBL, MRSA Year Discovered:: 01/26/20 ESBL / 03/20/19 MRSA MDRO Source:: ESBL URINE/ MRSA BLOOD Past Surgical History: Section, Section, Coronary Bypass/CABG, Heart Catheterization, Uterine Ablation Additional Past Surgical History / Comment(s): 2011 CABG 2 vessel, D&C, C- sections x 2, bilateral lower leg/heels debrided. Past Anesthesia/Blood Transfusion Reactions: No Reported Reaction Additional Past Anesthesia/Blood Transfusion Reaction / Comm: clausterphobia Past Psychological History: Depression Smoking Status: Never smoker Past Alcohol Use History: None Reported Past Drug Use History: None Reported - Past Family History Mother Additional Family Medical History / Comment(s): anuerysm Father Family Medical History: CVA/TIA, Diabetes Mellitus, Myocardial Infarction ([place]) Sister(s) Additional Family Medical History / Comment(s): one sister had "hole in her heart" and a kidney transplant and another sister had ms. Medications and Allergies Home Medications Medication Instructions Recorded Confirmed Type Carvedilol [Coreg] 12.5 mg PO BID 08/17/18 10/09/20 History Clopidogrel [Plavix] 75 mg PO DAILY 08/17/18 10/09/20 History Insulin Detemir [Levemir Flextouch] 10 units SQ HS 08/17/18 10/09/20 History Gabapentin [Neurontin] 300 mg PO HS #3 capsule 03/27/19 10/09/20 Rx Insulin Aspart [NovoLOG Flexpen] 10 units SQ DAILY 10/09/20 10/09/20 History traMADol-ACETAMINOP 37.5-325MG 1 tab PO TID PRN 10/09/20 10/09/20 History [Ultracet] Allergies Allergy/AdvReac Type Severity Reaction Status Date / Time collagenase Clostridium Allergy Unknown Verified 10/09/20 15:11 histolyticu [From Santyl] latex Allergy Rash/Hives Verified 10/09/20 15:11 pollen extracts AdvReac Mild Itching Verified 10/09/20 15:11 Surgical - Exam Vital Signs Temp Pulse Resp BP Pulse Ox 98.4 F 88 18 123/69 99 10/09/20 13:14 10/09/20 13:14 10/09/20 13:14 10/09/20 13:14 10/09/20 13:14 Gen. is a disinterested female who does not open her eyes the entirety of the visit. No acute distress. HEENT is normocephalic atraumatic. Heart is regular. Lungs are clear but decreased. She is morbidly obese. Abdomen is soft. Multiple skin excoriations through the shoulders and arms. Bilateral lower extremities edematous with chronic venous stasis changes and lymphedema. There are multiple wounds. There is some area of overlying eschar of the left lower extremity wound but no purulent drainage noted. Minimal erythema. Flattened affect Disinterested mood. Results - Labs 10/09/20 14:00 10/10/20 06:29 Abnormal Lab Results - Last 24 Hours (Table) 10/09/20 10/09/20 10/09/20 Range/Units 14:00 14:00 14:00 WBC 15.6 H (3.8-10.6) k/uL RBC 3.18 L (3.80-5.40) m/uL Hgb 7.3 L (11.4-16.0) gm/dL Hct 24.5 L (34.0-46.0) % MCV 77.2 L (80.0-100.0) fL MCH 23.0 L (25.0-35.0) pg MCHC 29.8 L (31.0-37.0) g/dL RDW 19.2 H (11.5-15.5) % Neutrophils # 14.5 H (1.3-7.7) k/uL Lymphocytes # 0.4 L (1.0-4.8) k/uL PT 13.8 H (9.0-12.0) sec INR 1.4 H (<1.2) Sodium 130 L (137-145) mmol/L Potassium 5.7 H (3.5-5.1) mmol/L BUN 41 H (7-17) mg/dL Creatinine 1.61 H (0.52-1.04) mg/dL Est GFR (CKD-EPI)AfAm (60.0-200.0) Est GFR (CKD-EPI)NonAf (60.0-200.0) BUN/Creatinine Ratio (12.00-20.00) Ratio Glucose 239 H (74-99) mg/dL POC Glucose (mg/dL) (75-99) mg/dL Calcium 7.3 L (8.4-10.2) mg/dL Iron (50-170) ug/dL TIBC (228-460) ug/dL % Saturation (12.00-45.00) AST (13-35) U/L ALT (8-44) U/L Total Protein 5.7 L (6.3-8.2) g/dL Albumin 2.2 L (3.5-5.0) g/dL Albumin/Globulin Ratio (1.60-3.17) g/dL Crossmatch 10/09/20 10/09/20 10/09/20 Range/Units 14:00 17:12 17:18 WBC (3.8-10.6) k/uL RBC (3.80-5.40) m/uL Hgb (11.4-16.0) gm/dL Hct (34.0-46.0) % MCV (80.0-100.0) fL MCH (25.0-35.0) pg MCHC (31.0-37.0) g/dL RDW (11.5-15.5) % Neutrophils # (1.3-7.7) k/uL Lymphocytes # (1.0-4.8) k/uL PT (9.0-12.0) sec INR (<1.2) Sodium (137-145) mmol/L Potassium (3.5-5.1) mmol/L BUN (7-17) mg/dL Creatinine (0.52-1.04) mg/dL Est GFR (CKD-EPI)AfAm (60.0-200.0) Est GFR (CKD-EPI)NonAf (60.0-200.0) BUN/Creatinine Ratio (12.00-20.00) Ratio Glucose (74-99) mg/dL POC Glucose (mg/dL) 211 H (75-99) mg/dL Calcium (8.4-10.2) mg/dL Iron 9 L (50-170) ug/dL TIBC 187 L (228-460) ug/dL % Saturation 4.81 L (12.00-45.00) AST (13-35) U/L ALT (8-44) U/L Total Protein (6.3-8.2) g/dL Albumin (3.5-5.0) g/dL Albumin/Globulin Ratio (1.60-3.17) g/dL Crossmatch See Detail 10/09/20 10/10/20 10/10/20 Range/Units 20:10 06:29 07:17 WBC (3.8-10.6) k/uL RBC (3.80-5.40) m/uL Hgb (11.4-16.0) gm/dL Hct (34.0-46.0) % MCV (80.0-100.0) fL MCH (25.0-35.0) pg MCHC (31.0-37.0) g/dL RDW (11.5-15.5) % Neutrophils # (1.3-7.7) k/uL Lymphocytes # (1.0-4.8) k/uL PT (9.0-12.0) sec INR (<1.2) Sodium (137-145) mmol/L Potassium (3.5-5.1) mmol/L BUN 43.0 H (7-17) mg/dL Creatinine 1.6 H (0.52-1.04) mg/dL Est GFR (CKD-EPI)AfAm 40.2 L (60.0-200.0) Est GFR (CKD-EPI)NonAf 34.7 L (60.0-200.0) BUN/Creatinine Ratio 26.88 H (12.00-20.00) Ratio Glucose 51 L (74-99) mg/dL POC Glucose (mg/dL) 207 H 61 L (75-99) mg/dL Calcium 7.4 L (8.4-10.2) mg/dL Iron (50-170) ug/dL TIBC (228-460) ug/dL % Saturation (12.00-45.00) AST 11 L (13-35) U/L ALT <8 L (8-44) U/L Total Protein 5.6 L (6.3-8.2) g/dL Albumin 2.50 L (3.5-5.0) g/dL Albumin/Globulin Ratio 0.81 L (1.60-3.17) g/dL Crossmatch 10/10/20 10/10/20 10/10/20 Range/Units 07:31 07:46 08:00 WBC (3.8-10.6) k/uL RBC (3.80-5.40) m/uL Hgb (11.4-16.0) gm/dL Hct (34.0-46.0) % MCV (80.0-100.0) fL MCH (25.0-35.0) pg MCHC (31.0-37.0) g/dL RDW (11.5-15.5) % Neutrophils # (1.3-7.7) k/uL Lymphocytes # (1.0-4.8) k/uL PT (9.0-12.0) sec INR (<1.2) Sodium (137-145) mmol/L Potassium (3.5-5.1) mmol/L BUN (7-17) mg/dL Creatinine (0.52-1.04) mg/dL Est GFR (CKD-EPI)AfAm (60.0-200.0) Est GFR (CKD-EPI)NonAf (60.0-200.0) BUN/Creatinine Ratio (12.00-20.00) Ratio Glucose (74-99) mg/dL POC Glucose (mg/dL) 59 L 55 L 53 L (75-99) mg/dL Calcium (8.4-10.2) mg/dL Iron (50-170) ug/dL TIBC (228-460) ug/dL % Saturation (12.00-45.00) AST (13-35) U/L ALT (8-44) U/L Total Protein (6.3-8.2) g/dL Albumin (3.5-5.0) g/dL Albumin/Globulin Ratio (1.60-3.17) g/dL Crossmatch 10/10/20 Range/Units 11:33 WBC (3.8-10.6) k/uL RBC (3.80-5.40) m/uL Hgb (11.4-16.0) gm/dL Hct (34.0-46.0) % MCV (80.0-100.0) fL MCH (25.0-35.0) pg MCHC (31.0-37.0) g/dL RDW (11.5-15.5) % Neutrophils # (1.3-7.7) k/uL Lymphocytes # (1.0-4.8) k/uL PT (9.0-12.0) sec INR (<1.2) Sodium (137-145) mmol/L Potassium (3.5-5.1) mmol/L BUN (7-17) mg/dL Creatinine (0.52-1.04) mg/dL Est GFR (CKD-EPI)AfAm (60.0-200.0) Est GFR (CKD-EPI)NonAf (60.0-200.0) BUN/Creatinine Ratio (12.00-20.00) Ratio Glucose (74-99) mg/dL POC Glucose (mg/dL) 117 H (75-99) mg/dL Calcium (8.4-10.2) mg/dL Iron (50-170) ug/dL TIBC (228-460) ug/dL % Saturation (12.00-45.00) AST (13-35) U/L ALT (8-44) U/L Total Protein (6.3-8.2) g/dL Albumin (3.5-5.0) g/dL Albumin/Globulin Ratio (1.60-3.17) g/dL Crossmatch Microbiology - Last 24 Hours (Table) 10/09/20 15:03 Blood Culture Gram Stain - Preliminary Blood 10/09/20 15:03 Blood Culture - Final Blood Diabetes panel 10/09/20 10/10/20 Range/Units 14:00 06:29 Sodium 130 L 136 (137-145) mmol/L Potassium 5.7 H 5.0 (3.5-5.1) mmol/L Chloride 104 103 (98-107) mmol/L Carbon Dioxide 23 23.1 (22-30) mmol/L BUN 41 H 43.0 H (7-17) mg/dL Creatinine 1.61 H 1.6 H (0.52-1.04) mg/dL Glucose 239 H 51 L (74-99) mg/dL Calcium 7.3 L 7.4 L (8.4-10.2) mg/dL AST 17 11 L (14-36) U/L ALT 8 <8 L (4-34) U/L Alkaline Phosphatase 106 115 (38-126) U/L Total Protein 5.7 L 5.6 L (6.3-8.2) g/dL Albumin 2.2 L 2.50 L (3.5-5.0) g/dL Calcium panel 10/09/20 10/10/20 Range/Units 14:00 06:29 Calcium 7.3 L 7.4 L (8.4-10.2) mg/dL Albumin 2.2 L 2.50 L (3.5-5.0) g/dL Pituitary panel 10/09/20 10/10/20 Range/Units 14:00 06:29 Sodium 130 L 136 (137-145) mmol/L Potassium 5.7 H 5.0 (3.5-5.1) mmol/L Chloride 104 103 (98-107) mmol/L Carbon Dioxide 23 23.1 (22-30) mmol/L BUN 41 H 43.0 H (7-17) mg/dL Creatinine 1.61 H 1.6 H (0.52-1.04) mg/dL Glucose 239 H 51 L (74-99) mg/dL Calcium 7.3 L 7.4 L (8.4-10.2) mg/dL Adrenal panel 10/09/20 10/10/20 Range/Units 14:00 06:29 Sodium 130 L 136 (137-145) mmol/L Potassium 5.7 H 5.0 (3.5-5.1) mmol/L Chloride 104 103 (98-107) mmol/L Carbon Dioxide 23 23.1 (22-30) mmol/L BUN 41 H 43.0 H (7-17) mg/dL Creatinine 1.61 H 1.6 H (0.52-1.04) mg/dL Glucose 239 H 51 L (74-99) mg/dL Calcium 7.3 L 7.4 L (8.4-10.2) mg/dL Total Bilirubin 0.9 0.7 (0.2-1.3) mg/dL AST 17 11 L (14-36) U/L ALT 8 <8 L (4-34) U/L Alkaline Phosphatase 106 115 (38-126) U/L Total Protein 5.7 L 5.6 L (6.3-8.2) g/dL Albumin 2.2 L 2.50 L (3.5-5.0) g/dL Assessment and Plan Assessment: Gram-negative bacteremia Bilateral lower extremity wounds Chronic venous insufficiency Lymphedema secondary to venous stasis Morbid obesity Chronic kidney disease Coronary artery disease Plan: After reviewing all patient's wounds, none of them look overtly infected. Continue looking for other sources as well. I do agree that the left lower extremity needs debriding to remove the overlying eschar and if there is any drainage or purulence cultures will be obtained. Check urine culture. Continue antibiotics. We'll plan to do operative debridement tomorrow if medically cleared.
--- NOTE | 2020-10-10 15:44 | P.PN ---
Subjective Progress Note Date: 10/10/20 Principal diagnosis: Left leg wound Patient was hypoglycemic this morning. She states that she rarely gets episodes of hypoglycemia at home, according to her this happens to her once every 3 months. According to the nursing staff patient has not urinated all day today, bladder scan done and she was found to have 650 mL of urine in the bladder. Otherwise she is feeling okay. No shortness of breath or chest pain. No fevers or chills. Objective - Vital Signs Vital signs: Vital Signs Temp 99.8 F H 10/10/20 08:21 Pulse 92 10/10/20 08:00 Resp 16 10/10/20 08:00 BP 93/44 10/10/20 08:00 Pulse Ox 91 L 10/10/20 08:00 Intake & Output 10/09/20 10/10/20 10/10/20 18:59 06:59 18:59 Intake Total 260 320 Balance 260 320 Weight 145.15 kg Intake: Intake, IV Titration 260 Amount Ampicillin-Sulbactam 3 gm 100 In Sodium Chloride 0.9% 100 ml @ 200 mls/hr IVPB Q6HR [facility] Rx#:[id number] Sodium Chloride 0.9% 1, 160 000 ml @ 20 mls/hr IV . Q24H [facility] Rx#:[id number] Oral 320 Other: # Voids 2 - Exam Constitutional: No acute distress, conversant, pleasant. Pale. Eyes:Anicteric sclerae, moist conjunctiva, no lid-lag, PERRLA, ENMT: Oropharynx clear, no erythema, exudates Neck: Supple, FROM, no masses, or JVD, No carotid bruits, No thyromegaly Lungs: Clear to auscultation, Clear to percussion, Normal respiratory effort, no accessory muscle use Cardiovascular: Heart regular in rate and rhythm, No murmurs, gallops, or rubs, No peripheral edema Abdominal: Soft, Nontender, no guarding, rebound or rigidity, Normoactive bowel sounds, No hepatomegaly, No splenomegaly, No palpable mass Skin: Chronic skin thickening and ulcers in the left leg with erythematous edges and yellowish discharge. Wound vac present on the left foot, dorsal aspect. Very malodorous. Stage III sacral ulcer. Extremities: No digital cyanosis, No clubbing. Psychiatric: Alert and oriented to person, place and time, appropriate affect, intact judgement Neuro: Bilateral leg weakness, Sensation to light touch grossly present throughout, Cranial nerves II-XII grossly intact, no focal sensory deficits - Labs CBC & Chem 7: 10/09/20 14:00 10/10/20 06:29 Labs: Abnormal Lab Results - Last 24 Hours (Table) 10/09/20 10/09/20 10/09/20 Range/Units 14:00 14:00 14:00 WBC 15.6 H (3.8-10.6) k/uL RBC 3.18 L (3.80-5.40) m/uL Hgb 7.3 L (11.4-16.0) gm/dL Hct 24.5 L (34.0-46.0) % MCV 77.2 L (80.0-100.0) fL MCH 23.0 L (25.0-35.0) pg MCHC 29.8 L (31.0-37.0) g/dL RDW 19.2 H (11.5-15.5) % Neutrophils # 14.5 H (1.3-7.7) k/uL Lymphocytes # 0.4 L (1.0-4.8) k/uL PT 13.8 H (9.0-12.0) sec INR 1.4 H (<1.2) Sodium 130 L (137-145) mmol/L Potassium 5.7 H (3.5-5.1) mmol/L BUN 41 H (7-17) mg/dL Creatinine 1.61 H (0.52-1.04) mg/dL Est GFR (CKD-EPI)AfAm (60.0-200.0) Est GFR (CKD-EPI)NonAf (60.0-200.0) BUN/Creatinine Ratio (12.00-20.00) Ratio Glucose 239 H (74-99) mg/dL POC Glucose (mg/dL) (75-99) mg/dL Calcium 7.3 L (8.4-10.2) mg/dL Iron (50-170) ug/dL TIBC (228-460) ug/dL % Saturation (12.00-45.00) AST (13-35) U/L ALT (8-44) U/L Total Protein 5.7 L (6.3-8.2) g/dL Albumin 2.2 L (3.5-5.0) g/dL Albumin/Globulin Ratio (1.60-3.17) g/dL Crossmatch 10/09/20 10/09/20 10/09/20 Range/Units 14:00 17:12 17:18 WBC (3.8-10.6) k/uL RBC (3.80-5.40) m/uL Hgb (11.4-16.0) gm/dL Hct (34.0-46.0) % MCV (80.0-100.0) fL MCH (25.0-35.0) pg MCHC (31.0-37.0) g/dL RDW (11.5-15.5) % Neutrophils # (1.3-7.7) k/uL Lymphocytes # (1.0-4.8) k/uL PT (9.0-12.0) sec INR (<1.2) Sodium (137-145) mmol/L Potassium (3.5-5.1) mmol/L BUN (7-17) mg/dL Creatinine (0.52-1.04) mg/dL Est GFR (CKD-EPI)AfAm (60.0-200.0) Est GFR (CKD-EPI)NonAf (60.0-200.0) BUN/Creatinine Ratio (12.00-20.00) Ratio Glucose (74-99) mg/dL POC Glucose (mg/dL) 211 H (75-99) mg/dL Calcium (8.4-10.2) mg/dL Iron 9 L (50-170) ug/dL TIBC 187 L (228-460) ug/dL % Saturation 4.81 L (12.00-45.00) AST (13-35) U/L ALT (8-44) U/L Total Protein (6.3-8.2) g/dL Albumin (3.5-5.0) g/dL Albumin/Globulin Ratio (1.60-3.17) g/dL Crossmatch See Detail 10/09/20 10/10/20 10/10/20 Range/Units 20:10 06:29 07:17 WBC (3.8-10.6) k/uL RBC (3.80-5.40) m/uL Hgb (11.4-16.0) gm/dL Hct (34.0-46.0) % MCV (80.0-100.0) fL MCH (25.0-35.0) pg MCHC (31.0-37.0) g/dL RDW (11.5-15.5) % Neutrophils # (1.3-7.7) k/uL Lymphocytes # (1.0-4.8) k/uL PT (9.0-12.0) sec INR (<1.2) Sodium (137-145) mmol/L Potassium (3.5-5.1) mmol/L BUN 43.0 H (7-17) mg/dL Creatinine 1.6 H (0.52-1.04) mg/dL Est GFR (CKD-EPI)AfAm 40.2 L (60.0-200.0) Est GFR (CKD-EPI)NonAf 34.7 L (60.0-200.0) BUN/Creatinine Ratio 26.88 H (12.00-20.00) Ratio Glucose 51 L (74-99) mg/dL POC Glucose (mg/dL) 207 H 61 L (75-99) mg/dL Calcium 7.4 L (8.4-10.2) mg/dL Iron (50-170) ug/dL TIBC (228-460) ug/dL % Saturation (12.00-45.00) AST 11 L (13-35) U/L ALT <8 L (8-44) U/L Total Protein 5.6 L (6.3-8.2) g/dL Albumin 2.50 L (3.5-5.0) g/dL Albumin/Globulin Ratio 0.81 L (1.60-3.17) g/dL Crossmatch 10/10/20 10/10/20 10/10/20 Range/Units 07:31 07:46 08:00 WBC (3.8-10.6) k/uL RBC (3.80-5.40) m/uL Hgb (11.4-16.0) gm/dL Hct (34.0-46.0) % MCV (80.0-100.0) fL MCH (25.0-35.0) pg MCHC (31.0-37.0) g/dL RDW (11.5-15.5) % Neutrophils # (1.3-7.7) k/uL Lymphocytes # (1.0-4.8) k/uL PT (9.0-12.0) sec INR (<1.2) Sodium (137-145) mmol/L Potassium (3.5-5.1) mmol/L BUN (7-17) mg/dL Creatinine (0.52-1.04) mg/dL Est GFR (CKD-EPI)AfAm (60.0-200.0) Est GFR (CKD-EPI)NonAf (60.0-200.0) BUN/Creatinine Ratio (12.00-20.00) Ratio Glucose (74-99) mg/dL POC Glucose (mg/dL) 59 L 55 L 53 L (75-99) mg/dL Calcium (8.4-10.2) mg/dL Iron (50-170) ug/dL TIBC (228-460) ug/dL % Saturation (12.00-45.00) AST (13-35) U/L ALT (8-44) U/L Total Protein (6.3-8.2) g/dL Albumin (3.5-5.0) g/dL Albumin/Globulin Ratio (1.60-3.17) g/dL Crossmatch 10/10/20 Range/Units 11:33 WBC (3.8-10.6) k/uL RBC (3.80-5.40) m/uL Hgb (11.4-16.0) gm/dL Hct (34.0-46.0) % MCV (80.0-100.0) fL MCH (25.0-35.0) pg MCHC (31.0-37.0) g/dL RDW (11.5-15.5) % Neutrophils # (1.3-7.7) k/uL Lymphocytes # (1.0-4.8) k/uL PT (9.0-12.0) sec INR (<1.2) Sodium (137-145) mmol/L Potassium (3.5-5.1) mmol/L BUN (7-17) mg/dL Creatinine (0.52-1.04) mg/dL Est GFR (CKD-EPI)AfAm (60.0-200.0) Est GFR (CKD-EPI)NonAf (60.0-200.0) BUN/Creatinine Ratio (12.00-20.00) Ratio Glucose (74-99) mg/dL POC Glucose (mg/dL) 117 H (75-99) mg/dL Calcium (8.4-10.2) mg/dL Iron (50-170) ug/dL TIBC (228-460) ug/dL % Saturation (12.00-45.00) AST (13-35) U/L ALT (8-44) U/L Total Protein (6.3-8.2) g/dL Albumin (3.5-5.0) g/dL Albumin/Globulin Ratio (1.60-3.17) g/dL Crossmatch Microbiology - Last 24 Hours (Table) 10/09/20 15:03 Blood Culture Gram Stain - Preliminary Blood 10/09/20 15:03 Blood Culture - Final Blood Assessment and Plan Plan: Acute left lower extremity cellulitis, acute on chronic venous stasis ulceration of the left lower extremity, leukocytosis, gram-negative bacteremia. Started Zosyn and vancomycin in the ER, zosyn was swithced to cefepime per ID. Monitor temperature Monitor WBC Morphine IV for pain prn D/W Dr. Scruggs, planning on debridement of the left leg wounds tomorrow. ID following. Preoperative evaluation Risk of not having the surgery LALIT to debride the left lower extremity source of infection clearly outweighs the risk of the surgery itself. Acute on chronic anemia Likely worsening of anemia of chronic disease, also has a history of iron deficiency anemia Check iron profile Status post 1 unit of packed red blood cells Recheck hemoglobin now and in the morning (CBC was ordered this a.m., not sure why no result is reported.) Diabetes type 2 Continue Lantus 10 units daily Sliding scale insulin with blood sugar checks every before meals and at bedtime Monitor for hypoglycemia and decrease Lantus dose if persistent. Mild LUCA on CKD 3, hyperkalemia K 5 today Avoid nephrotoxic medications Recheck creatinine in the morning S/p 1 dose of Kayexalate 30 g upon admission Coronary artery disease -Holding Plavix due to anemia, also patient going for debridement surgery tomorrow -Continue coreg, not chronically on statin therapy Chronic diastolic congestive heart failure currently compensated -Would benefit from diuresis once cr stabilizes Morbid obesity with BMI 54.9 -Outpatient structured weight loss Admitted to inpatient, expected length of stay >2 midnights.
[2020-10-10 16:02] LABS: Anisocytosis Slight; Basophils # (A) 0.1 k/uL (0-0.2); Basophils % (A) 0 %; Eosinophils % (A) 0 %; HCT 22.7 % (34.0-46.0); Hypochromasia Marked; Lymphocytes # (A) 0.6 k/uL (1.0-4.8); Lymphocytes % (A) 4 %; MCH 22.5 pg (25.0-35.0); MCHC 28.7 g/dL (31.0-37.0); MCV 78.7 fL (80.0-100.0); Microcytosis Slight; Monocytes # (A) 0.5 k/uL (0-1.0); Monocytes % (A) 3 %; Neutrophils # (A) 16.3 k/uL (1.3-7.7); Neutrophils % (A) 92 %; Platelet Count 258 k/uL (150-450); RBC 2.88 m/uL (3.80-5.40); RDW 19.3 % (11.5-15.5); WBC 17.7 k/uL (3.8-10.6)
[2020-10-10 16:13] LABS: HGB 6.5 gm/dL (11.4-16.0)
[2020-10-10 16:55] LABS: Appearance,Urine Cloudy (Clear); Bacteria,Urine Many /hpf; Bilirubin,Urine Negative (Negative); Blood,Urine Large (Negative); Color,Urine Yellow; Glucose,Urine (UA) Negative (Negative); Hyaline Casts,Urine 1 /lpf (0-2); Ketones,Urine Trace (Negative); Leukocyte Esterase,Urine Large (Negative); Mucus,Urine Rare /hpf; Nitrite,Urine Negative (Negative); Protein,Urine 1+ (Negative); RBC,Urine 45 /hpf (0-5); Specific Gravity,Urine 1.028 (1.001-1.035); Squamous Epithelial Cell,Urine 2 /hpf (0-4); Triple Phosphate Crystal,Urine Many /hpf; WBC,Urine 42 /hpf (0-5)
[2020-10-10] MEDS ORDERED: VANCOMYCIN 2,500 MG in SODIUM CHLORIDE 0.9% 500 ML 500 ML IVPB SCH (17:00)
[2020-10-10 17:09] LABS: Glucose,Whole Blood 137 mg/dL (75-99)
[2020-10-10 20:35] LABS: Glucose,Whole Blood 141 mg/dL (75-99)
[2020-10-10] MEDS: GABAPENTIN 300 MG CAP PO SCH (20:38)
[2020-10-10] MEDS: INSULIN DETEMIR (LEVEMIR) 100 UNIT/ML SYR SQ SCH (20:38)
[2020-10-10] MEDS: CEFEPIME 2 GM in SODIUM CHLORIDE 0.9% 100 ML IVPB SCH (21:51)
--- NOTE | 2020-10-10 22:38 | PN ---
PROGRESS NOTE DATE OF SERVICE: 10/10/2020 REASON FOR FOLLOWUP: 1. Left lower extremity venous with secondary cellulitis. 2. Bacteremia. INTERVAL HISTORY: The patient is currently afebrile. The patient is breathing comfortably. Denies having any chest pain, shortness of breath or cough. No abdominal pain no worsening pain to the left leg. Patient was seen by Surgery; waiting for surgical debridement with a clinical course complicated by development of positive blood culture with Gram-negative as well as Gram-positive. PHYSICAL EXAMINATION: Blood pressure 109/56 pulse of 80, temperature 98.2. She is 96% on room air. General description is a middle-aged female lying in bed in no distress. RESPIRATORY SYSTEM: Unlabored breathing with decreased intensity of breath sounds. No wheeze. HEART: S1, S2. Regular rate and rhythm. ABDOMEN: Soft. No tenderness. Left leg is currently dressed up. No obvious drainage on the dressing. DIAGNOSTIC IMPRESSION AND PLAN: Patient admitted to hospital with left leg wound infection with secondary cellulitis, now with a clinical course complicated by development of Gram-negative bacteremia. Unasyn will be adjusted to cefepime. Continue with the vancomycin. Blood culture will be repeated to document clearance of bacteremia. Monitor her clinical course closely. Overall prognosis remains guarded. MMODL / IJN: [id number] /
[2020-10-10 22:48] LABS: Hemoglobin A1C 6.8 % (4.0-6.0)
[2020-10-11 06:58] LABS: Anisocytosis Slight; Basophils % (A) 0 %; Eosinophils # (A) 0.3 k/uL (0-0.7); Eosinophils % (A) 2 %; HCT 24.8 % (34.0-46.0); Hypochromasia Marked; Lymphocytes % (A) 7 %; MCHC 28.3 g/dL (31.0-37.0); MCV 81.1 fL (80.0-100.0); Mean Platelet Volume 6.9; Microcytosis Slight; Monocytes # (A) 0.4 k/uL (0-1.0); Monocytes % (A) 3 %; Neutrophils % (A) 86 %; Platelet Count 284 k/uL (150-450); Poikilocytosis Slight; RBC 3.05 m/uL (3.80-5.40); RDW 19.3 % (11.5-15.5)
[2020-10-11 07:05] LABS: Glucose,Whole Blood 104 mg/dL (75-99)
[2020-10-11] MEDS: INSULIN ASPART (NovoLOG) 100 UNIT/ML VIAL SQ SCH ×4 (07:24→20:48)
[2020-10-11] MEDS: carvediloL 12.5 MG TAB PO SCH ×2 (07:25→20:20)
[2020-10-11] MEDS: CEFEPIME 2 GM in SODIUM CHLORIDE 0.9% 100 ML IVPB SCH ×2 (08:42→20:20)
[2020-10-11 09:45] LABS: African American GFR (CKD) 34.8 (60.0-200.0); Anion Gap 7.4 mmol/L (4.00-12.00); BUN/Creat Ratio 25.56 Ratio (12.00-20.00); Calcium 6.9 mg/dL (8.7-10.3); Carbon Dioxide 23.6 mmol/L (21.6-31.8); Non-African American GFR(CKD) 30.1 (60.0-200.0); Potassium 4.8 mmol/L (3.5-5.5)
[2020-10-11 11:49] LABS: Glucose,Whole Blood 85 mg/dL (75-99)
[2020-10-11] MEDS ORDERED: MIDAZOLAM 2 MG/2 ML VIAL ONE (15:24)
[2020-10-11] MEDS ORDERED: PROPOFOL 10 MG/ML 20 ML VIAL IV ONE (15:24)
[2020-10-11] MEDS ORDERED: SUCCINYLCHOLINE CHLORIDE 100 MG/5 ML SYR IV ONE (15:24)
[2020-10-11] MEDS ORDERED: fentaNYL (PF) 50 MCG/ML 2 ML AMP ONE (15:24)
[2020-10-11] MEDS ORDERED: LIDOCAINE 1% INJ 10MG/ML (20 ML MDV) ONE (15:24)
[2020-10-11] MEDS ORDERED: IV FLUID CONTINUATION 1,000 ML IV ONE (15:29)
--- NOTE | 2020-10-11 16:58 | P.OP ---
Date of Procedure: 10/11/20 Description of Procedure: Preoperative diagnosis: Bilateral lower extremity wounds, gram negative bacteremia, left lower extremity cellulitis, morbid obesity, immobility Postoperative diagnosis: Same Procedure: [Sharp excisional debridement of bilateral lower extremity wounds #1 right lower extremity wound 6 x 1.5 x 1 cm to subcutaneous tissues #2 left ankle 7.5 x 3.7 x 0.3 cm to bone #3 left heel 4.7 x 3.5 x 0.2 cm to bone #4 left calf 21 x 7 x 0.4 cm to subcutaneous tissue ] Surgeon: Izabel Scruggs D.O. EBL: [75 mL] IV fluids: [See records] Urine output: [Previous Scruggs in place] Drains: [None] Complications: [None immediately apparent] Condition: [Stable to recovery] Operative indication and findings: [The patient is a 59-year-old female with significant past medical history and nonhealing chronic venous stasis ulcerations of her bilateral lower extremities. Recently she began having chil ls and malaise and was found of cellulitis of her left posterior calf wound and was sent to the ER for antibiotic from wound care. The past she has had wound vacs and other modes of wound care of the left lower extremity which were unsuccessful. She presents today for debridement. She continues to remain adamant about not wanting an amputation. Risks and benefits were discussed her to seemingly understood and was willing to proceed as such.] Procedure in detail: [The patient was taken to the operative suite placed in supine position. Bilateral lower extremities were prepped and draped in usual sterile fashion. A preprocedure timeout was performed, all parties were in agreement. Beginning with the left leg at the level of the ankle sharp excisional debridement was performed with curette and scalpel. This did track down to the bone at the level of the tarsals. There was intermittent drainage of purulent fluid with certain areas of pressure onto the foot. The skin incision was enlarged over the tract. Hemostasis was controlled with electrocautery. No further pus pocket was visibly identified. Attention was then turned towards the heel wound. The necrotic tissue was excised and did involve the bone. Sharp excisional debridement with curet was performed. Pressure was held for hemostasis. Attention was then turned towards the posterior calf. The large wound was aggressively curetted to remove devitalized fatty tissues. There was tracking in telling of the inferior portion which was opened with the resultant size wound. Attention was then turned to the right lower extremity which was sharply divided with curet. There is no evidence appearance drainage or tracking. Both legs were dressed with wet-to-dry dressings Curlex and the left leg with an Yusuf bandage. It appears of the right leg the wound itself is created due to the patient's leg caliber changes with the wound being at the level where the wrap zoie in. At this point, I do believe the patient is likely going to need an amputation. I believe she probably has some degree of Charcot foot of the left lower extremity infection. A computed tomography scan will be performed to evaluate this in order to give more clarity. She does not have any posterior flap available with her significant wound there as well. She is immobile only transferring from chair to her mobile scooter. This was discussed with the medicine team. An regarding this will be had with the patient once she is awake and alert and out of her window from anesthesia.]
[2020-10-11 17:10] LABS: Glucose,Whole Blood 68 mg/dL (75-99)
[2020-10-11] MEDS ORDERED: DEXTROSE 50% SYRINGE 50 ML IVP ONE (17:13)
[2020-10-11] MEDS: SODIUM CHLORIDE 0.9% 1,000 ML IV SCH ×3 (17:16→19:17)
--- NOTE | 2020-10-11 17:21 | PN ---
PROGRESS NOTE DATE OF SERVICE: 10/11/2020 REASON FOR FOLLOWUP: Left leg infected venous stasis ulcer with secondary bacteremia. INTERVAL HISTORY: The patient is currently afebrile. Patient is breathing comfortably. He is scheduled for debridement of the wound this afternoon. Denies having any chest pain or cough. No abdominal pain. No worsening pain in the left leg area. PHYSICAL EXAMINATION: Blood pressure 107/67. Pulse 69. Temperature 97.9. She is 97% on room air. General description is a middle-aged female lying in bed in no distress. Respiratory system: Unlabored breathing, clear to auscultation anteriorly. Heart S1, S2. Regular rate and rhythm. Abdomen soft, no tenderness. Left leg is currently dressed up. LABS: Blood and local culture with Gram-negative. DIAGNOSTIC IMPRESSION AND PLAN: Patient with infected left leg venous stasis ulcer with secondary cellulitis with gram- negative with no gram-positive seen. Vancomycin will be discontinued. Continue cefepime. Await surgical debridement and deep cultures. Continue supportive care. MMODL / IJN: [id number] /
[2020-10-11 17:26] LABS: Glucose,Whole Blood 124 mg/dL (75-99)
[2020-10-11] MEDS ORDERED: SODIUM CHLORIDE 0.9% 500 ML 500 ML IV ONE (18:55)
--- NOTE | 2020-10-11 18:57 | P.PN ---
Subjective Progress Note Date: 10/11/20 (delayed charting seen at 1105) Principal diagnosis: right leg pain Patient is a 59-year-old female with a history of insulin-dependent diabetes mellitus type 2, chronic left lower extremity wound, obesity, and functional quadriplegia who presented to the emergency department secondary to worsening infection of her left lower extremity. Patient underwent debridement with Dr. Scruggs in the OR today. She will likely need an above knee amputation. Purulent drainage noted from left ankle. Patient seen and examined at bedside. She reports that this wound had reopened several months ago she then fell and she believes that she her leg on her bed railing and it became much worse and infected. She denies any chest pain, shortness breath, nausea, or vomiting. I discussed with her the possibility of needing subacute rehab secondary to her difficulty with ambulation and need for frequent wound dressing changes. Patient became. Upset and aggressive. She adamantly refuses to go to subacute rehab she was raising her voice and repeating her herself. She did not tell me exactly why, but it sounds like she was unhappy with how often they made her exercise at rehab in the past. General: Ill appearing, mild distress, appears at stated age Derm: Dressing in place bilateral lower extremities warm, dry Head: atraumatic, normocephalic, symmetric Eyes: EOMI, no lid lag, anicteric sclera Mouth: no lip lesion, mucus membranes moist Cardiovascular: S1S2 reg, no murmur, positive posterior tibial pulse bilateral, Lungs: Decreased breath sounds bilateral bilateral, no rhonchi, no rales , no accessory muscle use Abdominal: soft, nontender to palpation, no guarding, no appreciable organomegaly Ext: + gross muscle atrophy, no edema, no contractures Psych: Alert, oriented, upset and aggressive Bilateral lower extremity wounds, chronic venous insufficiency, lymphedema, gram-negative bacteremia secondary to wound infection -ID recommendations appreciated, will need IV antibiotics continue with cefepime -Status post I&D operatively with Dr. Scruggs. Concern for possible osteomyelitis in the left ankle as there appears to be purulent material. Patient likely will need above-knee amputation. -Pain control -Dressings per vascular surgery Diabetes mellitus type 2 insulin-dependent -Continue long-acting and sliding scale insulin -Follow blood sugars -A1c 6.8 Acute on chronic anemia - Likely worsening of anemia of chronic disease, also has a history of iron deficiency anemia - check ferritin - follow CBC LUCA on CKD 3 - IV fluids - Avoid nephrotoxic medications - Recheck creatinine in the morning - S/p 1 dose of Kayexalate 30 g upon admission Coronary artery disease -Holding Plavix due to likely need for AKA -Continue coreg, not chronically on statin therapy anmd can follow-up as outpatient Chronic diastolic congestive heart failure currently compensated -Would benefit from diuresis once cr stabilizes Morbid obesity with BMI 54.9 -Outpatient structured weight loss hyperkalemia, resolved Objective - Vital Signs Vital signs: Vital Signs Temp 97.0 F L 10/11/20 16:49 Pulse 70 10/11/20 17:28 Resp 16 10/11/20 17:28 BP 138/70 10/11/20 17:28 Pulse Ox 100 10/11/20 17:28 Intake & Output 10/10/20 10/11/20 10/11/20 18:59 06:59 18:59 Intake Total 820 285 720 Output Total 525 475 Balance 820 -240 245 Intake: IV 720 Intake, IV Titration 100 Amount Ampicillin-Sulbactam 3 gm 100 In Sodium Chloride 0.9% 100 ml @ 200 mls/hr IVPB Q6HR [facility] Rx#:[id number] Oral 720 Blood Product 285 Rc Pheresis As-3 Unit 285 [id number] Output: Urine 525 400 Estimated Blood Loss 75 Other: Voiding Method Indwelling Catheter Indwelling Catheter - Labs CBC & Chem 7: 10/11/20 06:15 10/11/20 06:15 Labs: Abnormal Lab Results - Last 24 Hours (Table) 10/09/20 10/10/20 10/10/20 Range/Units 20:54 06:29 20:33 WBC (3.8-10.6) k/uL RBC (3.80-5.40) m/uL Hgb (11.4-16.0) gm/dL Hct (34.0-46.0) % MCH (25.0-35.0) pg MCHC (31.0-37.0) g/dL RDW (11.5-15.5) % Neutrophils # (1.3-7.7) k/uL BUN (9.0-27.0) mg/dL Creatinine (0.6-1.5) mg/dL Est GFR (CKD-EPI)AfAm (60.0-200.0) Est GFR (CKD-EPI)NonAf (60.0-200.0) BUN/Creatinine Ratio (12.00-20.00) Ratio POC Glucose (mg/dL) 141 H (75-99) mg/dL Hemoglobin A1c 6.8 H (4.0-6.0) % Calcium (8.7-10.3) mg/dL Crossmatch See Detail 10/11/20 10/11/20 10/11/20 Range/Units 06:15 06:15 07:03 WBC 14.0 H (3.8-10.6) k/uL RBC 3.05 L (3.80-5.40) m/uL Hgb 7.0 L (11.4-16.0) gm/dL Hct 24.8 L (34.0-46.0) % MCH 23.0 L (25.0-35.0) pg MCHC 28.3 L (31.0-37.0) g/dL RDW 19.3 H (11.5-15.5) % Neutrophils # 12.0 H (1.3-7.7) k/uL BUN 46.0 H (9.0-27.0) mg/dL Creatinine 1.8 H (0.6-1.5) mg/dL Est GFR (CKD-EPI)AfAm 34.8 L (60.0-200.0) Est GFR (CKD-EPI)NonAf 30.1 L (60.0-200.0) BUN/Creatinine Ratio 25.56 H (12.00-20.00) Ratio POC Glucose (mg/dL) 104 H (75-99) mg/dL Hemoglobin A1c (4.0-6.0) % Calcium 6.9 L (8.7-10.3) mg/dL Crossmatch 10/11/20 10/11/20 Range/Units 17:09 17:25 WBC (3.8-10.6) k/uL RBC (3.80-5.40) m/uL Hgb (11.4-16.0) gm/dL Hct (34.0-46.0) % MCH (25.0-35.0) pg MCHC (31.0-37.0) g/dL RDW (11.5-15.5) % Neutrophils # (1.3-7.7) k/uL BUN (9.0-27.0) mg/dL Creatinine (0.6-1.5) mg/dL Est GFR (CKD-EPI)AfAm (60.0-200.0) Est GFR (CKD-EPI)NonAf (60.0-200.0) BUN/Creatinine Ratio (12.00-20.00) Ratio POC Glucose (mg/dL) 68 L 124 H (75-99) mg/dL Hemoglobin A1c (4.0-6.0) % Calcium (8.7-10.3) mg/dL Crossmatch Microbiology - Last 24 Hours (Table) 10/10/20 09:26 Gram Stain - Preliminary Leg - Left Wound Culture - Preliminary Gram Neg Bacilli 10/09/20 15:03 Blood Culture Gram Stain - Preliminary Blood Blood Culture - Preliminary Gram Neg Bacilli 10/09/20 15:03 Blood Culture - Final Blood
[2020-10-11] MEDS: GABAPENTIN 300 MG CAP PO SCH (20:20)
[2020-10-11] MEDS: traMADol-ACETAMINOP 37.5-325MG 1 EACH TAB PO PRN (20:21)
[2020-10-11 20:32] LABS: Glucose,Whole Blood 160 mg/dL (75-99)
[2020-10-11] MEDS: INSULIN DETEMIR (LEVEMIR) 100 UNIT/ML SYR SQ SCH (20:48)
--- NOTE | 2020-10-12 | CT ---
EXAMINATION TYPE: CT lower extremity LT wo con DATE OF EXAM: 10/11/2020 COMPARISON: HISTORY: left foot and ankle pain CT DLP: 124.2 mGycm Automated exposure control for dose reduction was used. Images were obtained from the mid tibia to the bottom of the foot without contrast. The metatarsals are intact. There is osteopenia of the mid foot. There are multiple areas of bone los s involving the tarsal bones. There are lucent lines in the cuboidal bone that could be fractures. Th ere is subcutaneous edema around the foot and ankle. Ankle mortise is anatomic. Margins of the first and second and third cuneiform bones are indistinct. There are also some air bubbles around the tarso metatarsal joints of the mid foot. IMPRESSION: Changes in the mid foot that could relate to septic arthritis and osteomyelitis or neuropathic arthri tis.
[2020-10-12 06:54] LABS: Anisocytosis Slight; HCT 23.6 % (34.0-46.0); Hypochromasia Marked; MCH 23.8 pg (25.0-35.0); MCHC 29.4 g/dL (31.0-37.0); Mean Platelet Volume 7.2; Microcytosis Slight; Platelet Count 308 k/uL (150-450); Poikilocytosis Slight; RBC 2.91 m/uL (3.80-5.40); RDW 19.7 % (11.5-15.5); WBC 9.9 k/uL (3.8-10.6)
[2020-10-12 06:55] LABS: Glucose,Whole Blood 164 mg/dL (75-99)
[2020-10-12 07:02] LABS: HGB 6.9 gm/dL (11.4-16.0)
[2020-10-12] MEDS: INSULIN ASPART (NovoLOG) 100 UNIT/ML VIAL SQ SCH ×4 (08:13→21:09)
[2020-10-12] MEDS: CEFEPIME 2 GM in SODIUM CHLORIDE 0.9% 100 ML IVPB SCH ×2 (08:14→21:10)
[2020-10-12] MEDS: ACETAMINOPHEN TAB 325 MG TAB PO PRN (08:14)
[2020-10-12] MEDS: carvediloL 12.5 MG TAB PO SCH ×2 (08:14→21:09)
[2020-10-12 09:43] LABS: Ferritin 60.6 ng/mL (10.0-291.0)
[2020-10-12 09:57] LABS: African American GFR (CKD) 43.4 (60.0-200.0); Anion Gap 7.1 mmol/L (4.00-12.00); BUN/Creat Ratio 28.67 Ratio (12.00-20.00); Calcium 6.9 mg/dL (8.7-10.3); Carbon Dioxide 22.9 mmol/L (21.6-31.8); Non-African American GFR(CKD) 37.5 (60.0-200.0); Potassium 4.7 mmol/L (3.5-5.5)
--- NOTE | 2020-10-12 10:29 | P.PN ---
Subjective Progress Note Date: 10/12/20 Patient seen and examined. Discussed the surgical findings and my recommended need for a left above-knee amputation. She became very distressed crying and yelling stating she would never have her leg cut off. Stating that there must be something different that can be done. I discussed with her that I do believe this is the best course given the amount of wounds and a significant infection in the ankle as noted on computed tomography scan as well. She states she would rather than have her leg cut off. Left lower extremity dressing clean, dry, intact Significant left lower extremity wounds Left ankle infection Bacteremia At this point again I do believe the best course of be a left above-knee amputation. I told the patient we would discuss this with the infectious disease and medical teams who are seemingly agreement. I think she may benefit from a psychologic evaluation to determine she understands the severity of the discussion and outcomes if no surgical intervention were to be performed. Objective - Vital Signs Vital signs: Vital Signs Temp 98.6 F 10/12/20 07:46 Pulse 72 10/12/20 07:46 Resp 16 10/12/20 08:00 BP 92/52 10/12/20 07:46 Pulse Ox 96 10/12/20 07:46 Intake & Output 10/11/20 10/12/20 10/12/20 18:59 06:59 18:59 Intake Total 720 100 Output Total 475 1425 Balance 245 -1325 Intake: IV 720 Intake, IV Titration 100 Amount Cefepime 2 gm In Sodium 100 Chloride 0.9% 100 ml @ 25 mls/hr IVPB Q12HR [facility] Rx #:[id number] Output: Urine 400 1425 Estimated Blood Loss 75 Other: Voiding Method Indwelling Catheter Indwelling Catheter Indwelling Catheter # Bowel Movements 1 - Labs CBC & Chem 7: 10/12/20 05:44 10/12/20 05:44 Labs: Abnormal Lab Results - Last 24 Hours (Table) 10/09/20 10/11/20 10/11/20 Range/Units 20:54 17:09 17:25 RBC (3.80-5.40) m/uL Hgb (11.4-16.0) gm/dL Hct (34.0-46.0) % MCH (25.0-35.0) pg MCHC (31.0-37.0) g/dL RDW (11.5-15.5) % BUN (9.0-27.0) mg/dL Est GFR (CKD-EPI)AfAm (60.0-200.0) Est GFR (CKD-EPI)NonAf (60.0-200.0) BUN/Creatinine Ratio (12.00-20.00) Ratio Glucose (70-110) mg/dL POC Glucose (mg/dL) 68 L 124 H (75-99) mg/dL Calcium (8.7-10.3) mg/dL Crossmatch See Detail 10/11/20 10/12/20 10/12/20 Range/Units 20:30 05:44 05:44 RBC 2.91 L (3.80-5.40) m/uL Hgb 6.9 L* (11.4-16.0) gm/dL Hct 23.6 L (34.0-46.0) % MCH 23.8 L (25.0-35.0) pg MCHC 29.4 L (31.0-37.0) g/dL RDW 19.7 H (11.5-15.5) % BUN 43.0 H (9.0-27.0) mg/dL Est GFR (CKD-EPI)AfAm 43.4 L (60.0-200.0) Est GFR (CKD-EPI)NonAf 37.5 L (60.0-200.0) BUN/Creatinine Ratio 28.67 H (12.00-20.00) Ratio Glucose 158 H (70-110) mg/dL POC Glucose (mg/dL) 160 H (75-99) mg/dL Calcium 6.9 L (8.7-10.3) mg/dL Crossmatch 10/12/20 Range/Units 06:53 RBC (3.80-5.40) m/uL Hgb (11.4-16.0) gm/dL Hct (34.0-46.0) % MCH (25.0-35.0) pg MCHC (31.0-37.0) g/dL RDW (11.5-15.5) % BUN (9.0-27.0) mg/dL Est GFR (CKD-EPI)AfAm (60.0-200.0) Est GFR (CKD-EPI)NonAf (60.0-200.0) BUN/Creatinine Ratio (12.00-20.00) Ratio Glucose (70-110) mg/dL POC Glucose (mg/dL) 164 H (75-99) mg/dL Calcium (8.7-10.3) mg/dL Crossmatch Microbiology - Last 24 Hours (Table) 10/11/20 06:15 Blood Culture - Preliminary Blood No Growth after 24 hours 10/11/20 16:25 Gram Stain - Preliminary Foot - Left Wound Culture - Preliminary 10/11/20 16:25 Anaerobic Culture - Preliminary Foot - Left 10/09/20 15:03 Blood Culture Gram Stain - Final Blood Blood Culture - Final Proteus mirabilis 10/10/20 09:26 Gram Stain - Preliminary Leg - Left Wound Culture - Preliminary Gram Neg Bacilli
--- NOTE | 2020-10-12 11:10 | P.PN ---
Subjective Progress Note Date: 10/12/20 Pt seen today at bedside, tells me without prompting that "she would never go to rehab." Throughout our discussion, patient did not appear to be in distress, at times telling me that she "feels good and is enjoying herself watching the tv." She also used the word "chilling" to describe her present lack of distress. Pt does not appear to have good insight into the severity of her medical condition. Objective - Vital Signs Vital signs: Vital Signs Temp 98.6 F 10/12/20 07:46 Pulse 72 10/12/20 07:46 Resp 16 10/12/20 08:00 BP 92/52 10/12/20 07:46 Pulse Ox 96 10/12/20 07:46 Intake & Output 10/11/20 10/12/20 10/12/20 18:59 06:59 18:59 Intake Total 720 100 Output Total 475 1425 Balance 245 -1325 Intake: IV 720 Intake, IV Titration 100 Amount Cefepime 2 gm In Sodium 100 Chloride 0.9% 100 ml @ 25 mls/hr IVPB Q12HR [facility] Rx #:[id number] Output: Urine 400 1425 Estimated Blood Loss 75 Other: Voiding Method Indwelling Catheter Indwelling Catheter Indwelling Catheter # Bowel Movements 1 - Exam Gen: awake, alert HEENT: normocephalic, atraumatic, good hearing acuity, moist mucous membranes Resp: good air exchange, breathing comfortably with no accessory muscle use CVS: good distal perfusion x 4, GI: soft, NTTP, ND : no SPT, no CVAT, mcdermott catheter is present MSK: both lower extremities with clean, dry, intact dressing, clear lymphedema of the left leg above the dressing. Neuro: non-focal, moving all extremities Psych: cooperative, labile mood, poor insight - Labs CBC & Chem 7: 10/12/20 05:44 10/12/20 05:44 Labs: Abnormal Lab Results - Last 24 Hours (Table) 10/09/20 10/11/20 10/11/20 Range/Units 20:54 17:09 17:25 RBC (3.80-5.40) m/uL Hgb (11.4-16.0) gm/dL Hct (34.0-46.0) % MCH (25.0-35.0) pg MCHC (31.0-37.0) g/dL RDW (11.5-15.5) % BUN (9.0-27.0) mg/dL Est GFR (CKD-EPI)AfAm (60.0-200.0) Est GFR (CKD-EPI)NonAf (60.0-200.0) BUN/Creatinine Ratio (12.00-20.00) Ratio Glucose (70-110) mg/dL POC Glucose (mg/dL) 68 L 124 H (75-99) mg/dL Calcium (8.7-10.3) mg/dL Crossmatch See Detail 10/11/20 10/12/20 10/12/20 Range/Units 20:30 05:44 05:44 RBC 2.91 L (3.80-5.40) m/uL Hgb 6.9 L* (11.4-16.0) gm/dL Hct 23.6 L (34.0-46.0) % MCH 23.8 L (25.0-35.0) pg MCHC 29.4 L (31.0-37.0) g/dL RDW 19.7 H (11.5-15.5) % BUN 43.0 H (9.0-27.0) mg/dL Est GFR (CKD-EPI)AfAm 43.4 L (60.0-200.0) Est GFR (CKD-EPI)NonAf 37.5 L (60.0-200.0) BUN/Creatinine Ratio 28.67 H (12.00-20.00) Ratio Glucose 158 H (70-110) mg/dL POC Glucose (mg/dL) 160 H (75-99) mg/dL Calcium 6.9 L (8.7-10.3) mg/dL Crossmatch 10/12/20 Range/Units 06:53 RBC (3.80-5.40) m/uL Hgb (11.4-16.0) gm/dL Hct (34.0-46.0) % MCH (25.0-35.0) pg MCHC (31.0-37.0) g/dL RDW (11.5-15.5) % BUN (9.0-27.0) mg/dL Est GFR (CKD-EPI)AfAm (60.0-200.0) Est GFR (CKD-EPI)NonAf (60.0-200.0) BUN/Creatinine Ratio (12.00-20.00) Ratio Glucose (70-110) mg/dL POC Glucose (mg/dL) 164 H (75-99) mg/dL Calcium (8.7-10.3) mg/dL Crossmatch Microbiology - Last 24 Hours (Table) 10/11/20 06:15 Blood Culture - Preliminary Blood No Growth after 24 hours 10/11/20 16:25 Gram Stain - Preliminary Foot - Left Wound Culture - Preliminary 10/11/20 16:25 Anaerobic Culture - Preliminary Foot - Left 10/09/20 15:03 Blood Culture Gram Stain - Final Blood Blood Culture - Final Proteus mirabilis 10/10/20 09:26 Gram Stain - Preliminary Leg - Left Wound Culture - Preliminary Gram Neg Bacilli Assessment and Plan Assessment: Bilateral lower extremity wounds, chronic venous insufficiency, lymphedema, gram-negative bacteremia secondary to wound infection -ID recommendations appreciated, will need IV antibiotics continue with cefepime -Status post I&D operatively with Dr. Mcdermott. Concern for possible osteomyelitis in the left ankle as there appears to be purulent material. Patient likely will need above-knee amputation. -Pain control -Dressings per vascular surgery -may warrant neuropsych testing to ensure capacity to refuse amputation Diabetes mellitus type 2 insulin-dependent -Continue long-acting and sliding scale insulin -Follow blood sugars -A1c 6.8 Acute on chronic anemia - Likely worsening of anemia of chronic disease, also has a history of iron deficiency anemia - check ferritin - follow CBC LUCA on CKD 3 - IV fluids - Avoid nephrotoxic medications - Recheck creatinine in the morning - S/p 1 dose of Kayexalate 30 g upon admission Coronary artery disease -Holding Plavix due to likely need for AKA -Continue coreg, not chronically on statin therapy anmd can follow-up as outpatient Chronic diastolic congestive heart failure currently compensated -Would benefit from diuresis once cr stabilizes Morbid obesity with BMI 54.9 -Outpatient structured weight loss hyperkalemia, resolved
[2020-10-12 11:32] LABS: Glucose,Whole Blood 135 mg/dL (75-99)
[2020-10-12] MEDS: SODIUM CHLORIDE 0.9% 1,000 ML IV SCH (16:31)
[2020-10-12 16:59] LABS: Glucose,Whole Blood 119 mg/dL (75-99)
[2020-10-12 20:15] LABS: Glucose,Whole Blood 182 mg/dL (75-99)
[2020-10-12] MEDS: INSULIN DETEMIR (LEVEMIR) 100 UNIT/ML SYR SQ SCH (21:09)
[2020-10-12] MEDS: GABAPENTIN 300 MG CAP PO SCH (21:09)
[2020-10-12] MEDS: traMADol-ACETAMINOP 37.5-325MG 1 EACH TAB PO PRN (22:44)
--- NOTE | 2020-10-12 23:32 | PN ---
PROGRESS NOTE DATE OF SERVICE: 10/12/2020 REASON FOR FOLLOWUP: Gram-negative bacteremia and left leg infection venous stasis, also question of Charcot joint. INTERVAL HISTORY: The patient is currently afebrile. The patient is breathing comfortably denies having any chest pain or shortness of breath or cough. No abdominal pain or worsening pain in the leg. PHYSICAL EXAMINATION: Her blood pressure is 101/61 with a pulse of 72, temperature 98. She is 95% on room air. General description: The patient is a middle-aged female lying in bed in no distress. Respiratory system: Unlabored breathing. Clear to auscultation anteriorly. Heart S1, S2. Regular rate and rhythm. Abdomen: Soft, no tenderness. Left leg is currently dressed up. No obvious drainage on the dressing. LAB: Hemoglobin 6.1, white count 9.9, BUN of 43, creatinine 1.5. Cultures from the lung with Providencia and gram-negative. Blood culture with Proteus mirabilis. DIAGNOSTIC IMPRESSION AND PLAN: Patient with Gram-negative bacteremia secondary to infected left leg venous stasis ulcer and concern for possible underlying osteomyelitis/Charcot joint. The patient has been recommended left [id number] amputation. However, she is refusing. I did discuss with her that may be the best option for her. She would like to talk to the surgeon again tomorrow. Continue cefepime and continue supportive care. MMODL / IJN: [id number] /
[2020-10-13 06:44] LABS: Glucose,Whole Blood 108 mg/dL (75-99)
[2020-10-13] MEDS: INSULIN ASPART (NovoLOG) 100 UNIT/ML VIAL SQ SCH ×4 (08:43→21:33)
[2020-10-13] MEDS: CEFEPIME 2 GM in SODIUM CHLORIDE 0.9% 100 ML IVPB SCH ×2 (08:43→21:34)
[2020-10-13] MEDS: carvediloL 12.5 MG TAB PO SCH ×2 (08:43→21:33)
[2020-10-13 10:05] LABS: African American GFR (CKD) 47.2 (60.0-200.0); Non-African American GFR(CKD) 40.7 (60.0-200.0)
--- NOTE | 2020-10-13 10:58 | P.PN ---
Subjective Progress Note Date: 10/13/20 Principal diagnosis: Left leg wound I felt that patient is coming to terms with amputation at this point. She is just wondering about the level of the medication and trying to negotiate to make it lower in the leg. Otherwise she reported no other issues or complaints. Objective - Vital Signs Vital signs: Vital Signs Temp 98.1 F 10/13/20 08:00 Pulse 73 10/13/20 08:00 Resp 16 10/13/20 08:00 BP 102/65 10/13/20 08:00 Pulse Ox 95 10/13/20 08:00 Intake & Output 10/12/20 10/13/20 10/13/20 18:59 06:59 18:59 Intake Total 283 Output Total 450 450 710 Balance -167 450 710 Intake: Blood Product 283 Rc Pheresis 2 As3 Unit 283 [id number] Output: Urine 450 450 710 Other: Voiding Method Indwelling Catheter Indwelling Catheter Indwelling Catheter # Bowel Movements 1 - Exam Constitutional: No acute distress, conversant, pleasant. Pale. Eyes:Anicteric sclerae, moist conjunctiva, no lid-lag, PERRLA, ENMT: Oropharynx clear, no erythema, exudates Neck: Supple, FROM, no masses, or JVD, No carotid bruits, No thyromegaly Lungs: Clear to auscultation, Clear to percussion, Normal respiratory effort, no accessory muscle use Cardiovascular: Heart regular in rate and rhythm, No murmurs, gallops, or rubs, No peripheral edema Abdominal: Soft, Nontender, no guarding, rebound or rigidity, Normoactive bowel sounds, No hepatomegaly, No splenomegaly, No palpable mass Skin: No rash. Stage III sacral ulcer. Extremities: No digital cyanosis, No clubbing. Surgical dressings applied on the bilateral lower extremities. Lymphedema evident above the dressings. Psychiatric: Alert and oriented to person, place and time, appropriate affect, intact judgement Neuro: Bilateral leg weakness, Sensation to light touch grossly present throughout, Cranial nerves II-XII grossly intact, no focal sensory deficits - Labs CBC & Chem 7: 10/12/20 05:44 10/13/20 05:35 Labs: Abnormal Lab Results - Last 24 Hours (Table) 10/09/20 10/12/20 10/12/20 Range/Units 20:54 11:31 16:57 Est GFR (CKD-EPI)AfAm (60.0-200.0) Est GFR (CKD-EPI)NonAf (60.0-200.0) POC Glucose (mg/dL) 135 H 119 H (75-99) mg/dL Crossmatch See Detail 10/12/20 10/13/20 10/13/20 Range/Units 20:14 05:35 06:43 Est GFR (CKD-EPI)AfAm 47.2 L (60.0-200.0) Est GFR (CKD-EPI)NonAf 40.7 L (60.0-200.0) POC Glucose (mg/dL) 182 H 108 H (75-99) mg/dL Crossmatch Microbiology - Last 24 Hours (Table) 10/10/20 09:26 Gram Stain - Final Leg - Left Wound Culture - Final Providencia species Proteus mirabilis 10/11/20 06:15 Blood Culture - Preliminary Blood No Growth after 48 hours 10/11/20 16:25 Gram Stain - Preliminary Foot - Left Wound Culture - Preliminary Gram Neg Bacilli Assessment and Plan Plan: Acute left lower extremity cellulitis, acute on chronic venous stasis ulceration of the left lower extremity, leukocytosis, gram-negative bacteremia. S/P excisional debridement of bilateral lower extremity wounds, Vascular surgery service recommending left AKA but patient currently refusing. Growing Proteus mirabilis and the blood Continue cefepime per ID. Monitor temperature Monitor WBC Morphine IV for pain prn Acute on chronic anemia Likely worsening of anemia of chronic disease, also has a history of iron deficiency anemia Iron continues to be low like in the past, start iron supplement. Status post packed red blood cells transfusion According to the [place] there is no available compatible blood for this patient nation-wide. Diabetes type 2 Continue Lantus 10 units daily Sliding scale insulin with blood sugar checks every before meals and at bedtime Monitor for hypoglycemia Mild LUCA on CKD 3, hyperkalemia Renal function stable Avoid nephrotoxic medications S/p 1 dose of Kayexalate 30 g upon admission Coronary artery disease -Holding Plavix due to anemia. -Continue coreg, not chronically on statin therapy Chronic diastolic congestive heart failure currently compensated -Would benefit from diuresis once stable Morbid obesity with BMI 54.9 -Outpatient structured weight loss
[2020-10-13 11:20] LABS: Glucose,Whole Blood 231 mg/dL (75-99)
[2020-10-13] MEDS: SODIUM CHLORIDE 0.9% 1,000 ML IV SCH ×2 (12:07→16:42)
--- NOTE | 2020-10-13 15:01 | P.PN ---
Subjective Progress Note Date: 10/13/20 Patient seen and examined. Today she seemingly understands that an amputation is in her best interest. We discussed that this be an above-knee amputation and again she seemingly understands. Left lower extremity dressing clean, dry, intact Significant left lower extremity wounds Left ankle infection Bacteremia Acute on chronic anemia Long discussion had with the patient as well as nursing staff. Apparently her blood type is rare and she requires special blood for transfusion. According to the [place] this is not available at this time. I do believe the patient needs blood prior to undergoing an above-knee amputation and would like her hemoglobin at least above 8 for this in order to give her the best outcome. Currently she is on systemic antibiotics and is stable without signs of wors ening sepsis. I believe we have the opportunity to wait a few days to see if more blood becomes available for this patient noted to do it is safest for her. Objective - Vital Signs Vital signs: Vital Signs Temp 98.1 F 10/13/20 08:00 Pulse 73 10/13/20 08:00 Resp 16 10/13/20 08:00 BP 102/65 10/13/20 08:00 Pulse Ox 95 10/13/20 08:00 Intake & Output 10/12/20 10/13/20 10/13/20 18:59 06:59 18:59 Intake Total 283 Output Total 450 450 710 Balance -167 -450 -710 Intake: Blood Product 283 Rc Pheresis 2 As3 Unit 283 [id number] Output: Urine 450 450 710 Other: Voiding Method Indwelling Catheter Indwelling Catheter Indwelling Catheter # Bowel Movements 1 - Labs CBC & Chem 7: 10/12/20 05:44 10/13/20 05:35 Labs: Abnormal Lab Results - Last 24 Hours (Table) 10/09/20 10/12/20 10/12/20 Range/Units 20:54 16:57 20:14 Est GFR (CKD-EPI)AfAm (60.0-200.0) Est GFR (CKD-EPI)NonAf (60.0-200.0) POC Glucose (mg/dL) 119 H 182 H (75-99) mg/dL Crossmatch See Detail 10/13/20 10/13/20 10/13/20 Range/Units 05:35 06:43 11:19 Est GFR (CKD-EPI)AfAm 47.2 L (60.0-200.0) Est GFR (CKD-EPI)NonAf 40.7 L (60.0-200.0) POC Glucose (mg/dL) 108 H 231 H (75-99) mg/dL Crossmatch Microbiology - Last 24 Hours (Table) 10/10/20 09:26 Gram Stain - Final Leg - Left Wound Culture - Final Providencia species Proteus mirabilis 10/11/20 06:15 Blood Culture - Preliminary Blood No Growth after 48 hours 10/11/20 16:25 Gram Stain - Preliminary Foot - Left Wound Culture - Preliminary Gram Neg Bacilli
[2020-10-13 16:52] LABS: Glucose,Whole Blood 122 mg/dL (75-99)
[2020-10-13] MEDS: traMADol-ACETAMINOP 37.5-325MG 1 EACH TAB PO PRN (17:02)
[2020-10-13] MEDS ORDERED: MAG HYDROX/AL HYDROX/SIMETH 30 ML CUP PO ONE (17:04)
[2020-10-13 21:28] LABS: Glucose,Whole Blood 215 mg/dL (75-99)
[2020-10-13] MEDS: GABAPENTIN 300 MG CAP PO SCH (21:33)
[2020-10-13] MEDS: INSULIN DETEMIR (LEVEMIR) 100 UNIT/ML SYR SQ SCH (21:33)
--- NOTE | 2020-10-13 22:50 | PN ---
PROGRESS NOTE DATE OF SERVICE: 10/13/2020 REASON FOR FOLLOWUP: Left lower extremity infected wound with bacteremia. INTERVAL HISTORY: Patient is currently afebrile. The patient is breathing comfortably. Denies having any chest pain or cough. No nausea. No vomiting. No abdominal pain or worsening pain to the left leg area. PHYSICAL EXAMINATION: Blood pressure is 107/67, pulse of 72, temperature 98.3. She is 97% on room air. General description: The patient is a middle-aged female lying in bed in no distress. Respiratory system: Unlabored breathing. Clear to auscultation anteriorly. Heart S1, S2. Regular rate and rhythm. ABDOMEN: Soft, no tenderness. LABS: No new labs have been obtained today. DIAGNOSTIC IMPRESSION AND PLAN: Patient with Proteus mirabilis bacteremia. This patient infected left leg venous stasis ulcer with cellulitis. Patient is covered with cefepime to continue with the possible amputation and monitor clinical course closely. MMODL / IJN: [id number] /
[2020-10-14] MEDS: traMADol-ACETAMINOP 37.5-325MG 1 EACH TAB PO PRN ×2 (04:05→20:34)
[2020-10-14 06:40] LABS: Anisocytosis Slight; Basophils % (A) 0 %; Eosinophils # (A) 0.3 k/uL (0-0.7); Eosinophils % (A) 3 %; HCT 27.4 % (34.0-46.0); HGB 7.8 gm/dL (11.4-16.0); Hypochromasia Marked; Lymphocytes # (A) 0.9 k/uL (1.0-4.8); Lymphocytes % (A) 9 %; MCH 23.3 pg (25.0-35.0); MCHC 28.4 g/dL (31.0-37.0); MCV 81.8 fL (80.0-100.0); Mean Platelet Volume 7.2; Microcytosis Slight; Monocytes # (A) 0.3 k/uL (0-1.0); Monocytes % (A) 3 %; Neutrophils # (A) 8.7 k/uL (1.3-7.7); Neutrophils % (A) 84 %; Platelet Count 309 k/uL (150-450); Poikilocytosis Slight; RBC 3.35 m/uL (3.80-5.40); RDW 19.3 % (11.5-15.5); WBC 10.3 k/uL (3.8-10.6)
[2020-10-14 07:02] LABS: Glucose,Whole Blood 146 mg/dL (75-99)
[2020-10-14] MEDS: CEFEPIME 2 GM in SODIUM CHLORIDE 0.9% 100 ML IVPB SCH ×2 (08:25→20:29)
[2020-10-14] MEDS: carvediloL 12.5 MG TAB PO SCH ×2 (08:26→20:29)
[2020-10-14] MEDS: INSULIN ASPART (NovoLOG) 100 UNIT/ML VIAL SQ SCH ×4 (08:26→20:57)
[2020-10-14] MEDS: SODIUM CHLORIDE 0.9% 1,000 ML IV SCH ×2 (08:26→17:15)
[2020-10-14] MEDS: ACETAMINOPHEN TAB 325 MG TAB PO PRN (08:30)
[2020-10-14 09:37] LABS: African American GFR (CKD) 70.9 (60.0-200.0); Non-African American GFR(CKD) 61.2 (60.0-200.0)
[2020-10-14 11:49] LABS: Glucose,Whole Blood 129 mg/dL (75-99)
--- NOTE | 2020-10-14 14:17 | P.PN ---
Subjective Progress Note Date: 10/14/20 HISTORY OF PRESENT ILLNESS This is a 59-year-old female undergoing treatment for left lower extr emity wound infection and bacteremia. Culture is positive for Proteus mirabilis and patient is covered with cefepime. She is scheduled for amputation on . Patient denies having any significant pain. No chest pain or shortness of breath. No cough. No nausea or vomiting. She has been afebrile, heart rate 71, blood pressure 109/73, pulse ox 97% on room air. WBC 10.3, hemoglobin 7.8. PHYSICAL EXAMINATION Gen: This is a morbidly obese female. She is resting in bed and appears to be in no acute distress. HEENT: Head is atraumatic, normocephalic. Pupils equal, round. Sclerae is anicteric. NECK: Supple. No JVD. No lymphadenopathy. LUNGS: Clear to auscultation. No wheezes or rhonchi. No intercostal retractions. HEART: Regular rate and rhythm. No murmur. ABDOMEN: Soft. Bowel sounds are present. No masses. No tenderness. Scruggs catheter in place. EXTREMITIES: Dressings to the lower extremity. No calf tenderness. NEUROLOGICAL: Patient is awake, alert and oriented x3. ASSESSMENT Proteus mirabilis bacteremia Left venous stasis ulcer with cellulitis Possible osteomyelitis of the left ankle tentatively scheduled for left mnwyl-xyy-swau amputation Diabetes mellitus type 2 Acute kidney injury with chronic kidney disease stage III Chronic diastolic heart failure PLAN Continue cefepime Plan is for left [id number] amputation Continue supportive care The above dictated assessment and findings were discussed with Dr. Gibbs. The impression and plan of care have been directed as dictated. Dora Armenta nurse practitioner acting as scribe for Dr. Gibbs. Objective - Vital Signs Vital signs: Vital Signs Temp 98.6 F 10/14/20 07:42 Pulse 71 10/14/20 07:42 Resp 17 10/14/20 07:42 BP 109/73 10/14/20 07:42 Pulse Ox 97 10/14/20 07:42 Intake & Output 10/13/20 10/14/20 10/14/20 18:59 06:59 18:59 Intake Total 1000 Output Total 1410 1300 Balance -1410 -300 Intake: Oral 1000 Output: Urine 1410 1300 Other: Voiding Method Indwelling Catheter Indwelling Catheter # Bowel Movements 1 1 - Labs CBC & Chem 7: 10/14/20 05:29 10/14/20 05:29 Labs: Abnormal Lab Results - Last 24 Hours (Table) 10/13/20 10/13/20 10/14/20 Range/Units 16:51 21:26 05:29 RBC 3.35 L (3.80-5.40) m/uL Hgb 7.8 L (11.4-16.0) gm/dL Hct 27.4 L (34.0-46.0) % MCH 23.3 L (25.0-35.0) pg MCHC 28.4 L (31.0-37.0) g/dL RDW 19.3 H (11.5-15.5) % Neutrophils # 8.7 H (1.3-7.7) k/uL Lymphocytes # 0.9 L (1.0-4.8) k/uL POC Glucose (mg/dL) 122 H 215 H (75-99) mg/dL 10/14/20 Range/Units 07:01 RBC (3.80-5.40) m/uL Hgb (11.4-16.0) gm/dL Hct (34.0-46.0) % MCH (25.0-35.0) pg MCHC (31.0-37.0) g/dL RDW (11.5-15.5) % Neutrophils # (1.3-7.7) k/uL Lymphocytes # (1.0-4.8) k/uL POC Glucose (mg/dL) 146 H (75-99) mg/dL Microbiology - Last 24 Hours (Table) 10/11/20 06:15 Blood Culture - Preliminary Blood No Growth after 72 hours 10/11/20 16:25 Gram Stain - Preliminary Foot - Left Wound Culture - Final Proteus mirabilis 10/10/20 09:26 Gram Stain - Final Leg - Left Wound Culture - Final Providencia species Proteus mirabilis
[2020-10-14 16:33] LABS: Glucose,Whole Blood 172 mg/dL (75-99)
--- NOTE | 2020-10-14 16:54 | P.PN ---
Subjective Progress Note Date: 10/14/20 She was seen and examined lying in bed. She states she is just feeling tired. She has pain to the left lower extremity. She is able to move bilateral lower extremities. No acute changes through the night. Objective - Vital Signs Vital signs: Vital Signs Temp 98.6 F 10/14/20 07:42 Pulse 71 10/14/20 07:42 Resp 17 10/14/20 07:42 BP 109/73 10/14/20 07:42 Pulse Ox 97 10/14/20 07:42 Intake & Output 10/13/20 10/14/20 10/14/20 18:59 06:59 18:59 Intake Total 1000 Output Total 1410 1300 Balance -1410 -300 Intake: Oral 1000 Output: Urine 1410 1300 Other: Voiding Method Indwelling Catheter Indwelling Catheter # Bowel Movements 1 1 - Exam General appearance: The patient is alert, oriented, in no acute distress. HET: Head is normocephalic and atraumatic. Neck: Supple. Trachea midline. Extremities: Bilateral lower extremities with dressings that are clean dry and intact. Good cap refill bilateral lower extremities. Patient is able to move and wiggle toes. Left lower extremity tender to palpation. Neurological: No focal deficits. Strength and sensation are grossly intact. - Labs CBC & Chem 7: 10/14/20 05:29 10/14/20 05:29 Labs: Abnormal Lab Results - Last 24 Hours (Table) 10/13/20 10/13/20 10/13/20 Range/Units 11:19 16:51 21:26 RBC (3.80-5.40) m/uL Hgb (11.4-16.0) gm/dL Hct (34.0-46.0) % MCH (25.0-35.0) pg MCHC (31.0-37.0) g/dL RDW (11.5-15.5) % Neutrophils # (1.3-7.7) k/uL Lymphocytes # (1.0-4.8) k/uL POC Glucose (mg/dL) 231 H 122 H 215 H (75-99) mg/dL 10/14/20 10/14/20 Range/Units 05:29 07:01 RBC 3.35 L (3.80-5.40) m/uL Hgb 7.8 L (11.4-16.0) gm/dL Hct 27.4 L (34.0-46.0) % MCH 23.3 L (25.0-35.0) pg MCHC 28.4 L (31.0-37.0) g/dL RDW 19.3 H (11.5-15.5) % Neutrophils # 8.7 H (1.3-7.7) k/uL Lymphocytes # 0.9 L (1.0-4.8) k/uL POC Glucose (mg/dL) 146 H (75-99) mg/dL Microbiology - Last 24 Hours (Table) 10/11/20 06:15 Blood Culture - Preliminary Blood No Growth after 72 hours 10/11/20 16:25 Gram Stain - Preliminary Foot - Left Wound Culture - Final Proteus mirabilis 10/10/20 09:26 Gram Stain - Final Leg - Left Wound Culture - Final Providencia species Proteus mirabilis Assessment and Plan Assessment: 1. Significant left lower extremity wounds 2. Left ankle infection 3. Bacteremia 4. Acute on chronic anemia Plan: There was a long discussion between Dr. Scruggs and the patient yesterday regarding plan of care to proceed with a left [id number] amputation once patient has a hemoglobin at least above 8. Awaiting further blood for transfusion prior to proceeding with surgery. Patient is tentatively scheduled for a left [id number]-ihsd amputation on the until then she will remain on systemic antibiotics. The above dictated assessment and findings were discussed with Dr. Gallo. The impression and plan of care have been directed as dictated.
[2020-10-14] MEDS: GABAPENTIN 300 MG CAP PO SCH (20:29)
[2020-10-14 20:47] LABS: Glucose,Whole Blood 191 mg/dL (75-99)
[2020-10-14] MEDS: INSULIN DETEMIR (LEVEMIR) 100 UNIT/ML SYR SQ SCH (20:57)
--- NOTE | 2020-10-14 22:36 | P.PN ---
Progress Note - Text Progress Note Date: 10/14/20 Interval history: This is a patient with acute on chronic lower extremity leg wounds Patient p resents with worsening wounds with drainage and oozing. Infected -cellulitis. Cultures positive for Proteus mirabilis and patient on IV cefepime. Computed tomography scan of the lower extremity showed multiple areas of bone loss involving the tarsal bones, subcutaneous edema also some air bubbles around the tarsal metatarsal joints of the midfoot. Patient was transfused a unit of blood on October 11 and on October 12. Today-patient sitting up in bed. Some pain is present. Tentative plan for amputation on left below-knee. Review of systems: Was done for constitutional, cardiovascular, GI, pulmonary. relevant finding as above Active Medications Acetaminophen (Acetaminophen Tab 325 Mg Tab) 650 mg PO Q6HR PRN PRN Reason: Fever and/ or Pain Last Admin: 10/14/20 08:30 Dose: 650 mg Documented by: Carvedilol (Carvedilol 12.5 Mg Tab) 12.5 mg PO BID [facility] Last Admin: 10/14/20 20:29 Dose: 12.5 mg Documented by: Gabapentin (Gabapentin 300 Mg Cap) 300 mg PO [facility] Last Admin: 10/14/20 20:29 Dose: 300 mg Documented by: Sodium Chloride (Saline 0.9%) 1,000 mls @ 20 mls/hr IV .Q24H [facility] Last Admin: 10/14/20 17:15 Dose: Not Given Documented by: Cefepime HCl 2 gm/ Sodium (Chloride) 100 mls @ 25 mls/hr IVPB Q12HR [facility] Last Admin: 10/14/20 20:29 Dose: 25 mls/hr Documented by: Sodium Chloride (Saline 0.9%) 1,000 mls @ 50 mls/hr IV .Q20H [facility] Last Admin: 10/14/20 08:26 Dose: Not Given Documented by: Insulin Aspart (Insulin Aspart (Novolog) 100 Unit/Ml Vial) 0 unit SQ [facility]; Protocol Last Admin: 10/14/20 20:57 Dose: 3 unit Documented by: Insulin Detemir (Insulin Detemir (Levemir) 100 Unit/Ml Syr) 10 unit SQ [facility] Last Admin: 10/14/20 20:57 Dose: 10 unit Documented by: Morphine Sulfate (Morphine Sulfate 2 Mg/Ml Syringe) 2 mg IV Q4HR PRN PRN Reason: Severe Pain Naloxone HCl (Naloxone 0.4 Mg/Ml 1 Ml Vial) 0.2 mg IV Q2M PRN PRN Reason: Opioid Reversal Naloxone HCl (Naloxone 0.4 Mg/Ml 1 Ml Vial) 0.2 mg IV Q2M PRN PRN Reason: Opioid Reversal Ondansetron HCl (Ondansetron 4 Mg/2 Ml Vial) 4 mg IVP Q8HR PRN PRN Reason: Nausea And Vomiting Tramadol/Acetaminophen (Tramadol-Acetaminop 37.5-325mg 1 Each Tab) 1 each PO TID PRN PRN Reason: Pain Last Admin: 10/14/20 20:34 Dose: 1 each Documented by: On examination: VITAL SIGNS: 98.2, 72, 18, 115/76, 97% room air GENERAL APPEARANCE: BMI 54.9, sitting on bed, awake HEENT: Normal external appearance of nose and ear. Oral cavity normal EYES: Pupils equal. Conjunctiva normal. NECK: JVD unable to assess,. Mass not palpable. RESPIRATORY: Respiratory effort increased. Diminished breath sounds. CARDIOVASCULAR: First and second sounds normal. Edema present. ABDOMEN: Soft. Liver and spleen not palpable. No tenderness. No mass palpable. PSYCHIATRY: Alert and oriented x3. Mood and affect normal. EXTREMITIES: Dressing is present over the left lower extremity, , ischemic toes INVESTIGATIONS, reviewed in the clinical context: White count 10.3 hemoglobin 7.8 platelets 309 Creatinine 1.5 Assessment: -Acute on chronic bilateral lower extremity wounds from venous stasis ulcers, with possible gas gangrene/acute osteomyelitis. -Chronic kidney disease stage III from diabetic nephropathy and nephrosclerosis -Morbid obesity BMI 54.9 -Diabetes mellitus type 2 chronically on insulin -GERD -Essential hypertension -Hyperlipidemia -Coronary artery disease with prior history of bypass -Diabetic peripheral neuropathy -Chronic low back pain from arthritis -Chronic medical debility patient is a walker or wheelchair Plan: Patient's currently in IV cefepime. Pain control in place. Tentative plan for left below-knee amputation on . We will consult cardiology for perioperative management. Patient to be transfused to keep the hemoglobin above 8 for surgery.
[2020-10-15] MEDS: SODIUM CHLORIDE 0.9% 1,000 ML IV SCH ×2 (02:16→22:41)
[2020-10-15] MEDS: traMADol-ACETAMINOP 37.5-325MG 1 EACH TAB PO PRN ×2 (05:59→20:52)
[2020-10-15 06:59] LABS: Glucose,Whole Blood 131 mg/dL (75-99)
[2020-10-15] MEDS: INSULIN ASPART (NovoLOG) 100 UNIT/ML VIAL SQ SCH ×4 (07:16→20:52)
[2020-10-15] MEDS: CEFEPIME 2 GM in SODIUM CHLORIDE 0.9% 100 ML IVPB SCH ×2 (08:42→20:52)
[2020-10-15] MEDS: carvediloL 12.5 MG TAB PO SCH ×2 (08:42→20:52)
[2020-10-15 09:45] LABS: Anisocytosis Slight; Basophils # (A) 0.1 k/uL (0-0.2); Basophils % (A) 0 %; Eosinophils # (A) 0.3 k/uL (0-0.7); Eosinophils % (A) 3 %; HGB 7.7 gm/dL (11.4-16.0); Hypochromasia Marked; Lymphocytes # (A) 0.8 k/uL (1.0-4.8); Lymphocytes % (A) 7 %; MCH 24.2 pg (25.0-35.0); MCHC 29.5 g/dL (31.0-37.0); MCV 82.3 fL (80.0-100.0); Mean Platelet Volume 7.9; Microcytosis Slight; Monocytes # (A) 0.4 k/uL (0-1.0); Monocytes % (A) 4 %; Neutrophils # (A) 9.2 k/uL (1.3-7.7); Neutrophils % (A) 85 %; Platelet Count 281 k/uL (150-450); Poikilocytosis Slight; RBC 3.16 m/uL (3.80-5.40); RDW 19.6 % (11.5-15.5); WBC 10.8 k/uL (3.8-10.6)
[2020-10-15 11:51] LABS: Glucose,Whole Blood 136 mg/dL (75-99)
--- NOTE | 2020-10-15 13:15 | P.CRDCN ---
History of Present Illness Consult date: 10/15/20 History of present illness: CHIEF COMPLAINT: Preop clearance HISTORY OF PRESENT ILLNESS: This is a 59-year-old female with a past medical history significant for hypertension, hyperlipidemia, diabetes mellitus, coronary artery disease with previous CABG. Patient states she has not followed with a manager community in a few years due to personal issues. We have been asked to see the patient in consultation for pre-op clearance. Patient is scheduled for left above the knee amputation on 10/17/[address] Scruggs. Patient examined this morning at the bedside. She denies chest pain or pressure. She denies any shortness of breath. Denies dizziness or lightheadedness. Vital signs stable. Blood pressure 122/70. Heart rate in the 70s. DIAGNOSTICS: EKG reveals sinus mechanism with first-degree AV block Laboratory data: WBC 10.8. Hemoglobin 7.7. Platelet count 281. Sodium 137. Potassium 4.7. BUN 43. Creatinine 1.5. Magnesium 1.8. Current home cardiac medications include Plavix 75 mg daily and Coreg 12.5 mg twice a day REVIEW OF SYSTEMS: At the time of my exam: CONSTITUTIONAL: Denies fever or chills. HEENT: Denies blurred vision, vision changes, or eye pain. Denies hemoptysis CARDIOVASCULAR: Denies chest pain, orthopnea, PND or palpitations RESPIRATORY: No shortness of breath. GASTROINTESTINAL: Denies abdominal pain. Denies nausea or vomiting. HEMATOLOGIC: Denies bleeding disorders. GENITOURINARY: Denies any blood in urine. SKIN: Denies pruitis. Denies rash. PHYSICAL EXAM: VITAL SIGNS: Reviewed. GENERAL: Well-developed in no acute distress. HEENT: Head is normocephalic. Pupils are equal, round. Sclerae anicteric. Mucous membranes of the mouth are moist. Neck supple. No JVD or thyromegaly LUNGS: Respirations even and unlabored. Lungs essentially clear to auscultation bilaterally. HEART: Regular rate and rhythm. S1 and S2 heard. ABDOMEN: Soft. Nondistended. Nontender. EXTREMITIES: Normal range of motion. No clubbing or cyanosis. Dressing to lower extremity clean dry and intact. NEUROLOGIC: Awake and alert. Oriented x 3. ASSESSMENT: Proteus mirabilis bacteremia Left venous stasis ulcer with cellulitis Possible osteomyelitis of the left ankle Coronary artery disease with previous CABG 2, 2014 Hypertension Diabetes mellitus Obesity: BMI 54.9 PLAN: Continue Coreg Obtain 2D echo to assess cardiac structure and function Patient has no absolute contraindications to undergo surgical intervention. However she is at an intermediate risk from a cardiology standpoint Further recommendations pending patient course Nurse practitioner note has been reviewed by physician. Signing provider agrees with the documented findings, assessment, and plan of care. Past Medical History Past Medical History: Coronary Artery Disease (CAD), Heart Failure, Diabetes Mellitus, GERD/Reflux, Hyperlipidemia, Hypertension, Myocardial Infarction (CA), Osteoarthritis (OA), Renal Disease, Rheumatoid Arthritis (RA), Skin Disorder, Vascular Disorder Additional Past Medical History / Comment(s): Chronic bilateral venous stasis ulcers, pt states she currently has L lower leg wound being tx at [facility] and that R lower leg wound nearly healed, bilateral lower leg cellulitis, past bilateral heel wounds, IDDM type II, neuropathy bilateral legs/feet, CKD stage III, Chronic back and bilateral leg pain, bilateral cataracts, gallstones, rash on bilateral shoulders/chest and L leg, R breast slightly enlarged-punch skin bx negative. Last Myocardial Infarction Date:: 2011 History of Any Multi-Drug Resistant Organisms: ESBL, MRSA Date of last positivie culture/infection: 01/26/20 ESBL / 03/20/19 MRSA MDRO Source:: ESBL URINE/ MRSA BLOOD Past Surgical History: Section, Section, Coronary Bypass/CABG, Heart Catheterization, Uterine Ablation Additional Past Surgical History / Comment(s): 2011 CABG 2 vessel, D&C, C- sections x 2, bilateral lower leg/heels debrided. Past Anesthesia/Blood Transfusion Reactions: No Reported Reaction Additional Past Anesthesia/Blood Transfusion Reaction / Comment(s): clausterphobia Past Psychological History: Depression Smoking Status: Never smoker Past Alcohol Use History: None Reported Past Drug Use History: None Reported - Past Family History Mother Additional Family Medical History / Comment(s): anuerysm Father Family Medical History: CVA/TIA, Diabetes Mellitus, Myocardial Infarction (CA) Sister(s) Additional Family Medical History / Comment(s): one sister had "hole in her heart" and a kidney transplant and another sister had ms. Medications and Allergies Home Medications Medication Instructions Recorded Confirmed Type Carvedilol [Coreg] 12.5 mg PO BID 08/17/18 10/09/20 History Clopidogrel [Plavix] 75 mg PO DAILY 08/17/18 10/09/20 History Insulin Detemir [Levemir Flextouch] 10 units SQ HS 08/17/18 10/09/20 History Gabapentin [Neurontin] 300 mg PO HS #3 capsule 03/27/19 10/09/20 Rx Insulin Aspart [NovoLOG Flexpen] 10 units SQ DAILY 10/09/20 10/09/20 History traMADol-ACETAMINOP 37.5-325MG 1 tab PO TID PRN 10/09/20 10/09/20 History [Ultracet] Allergies Allergy/AdvReac Type Severity Reaction Status Date / Time collagenase Clostridium Allergy Unknown Verified 10/09/20 15:11 histolyticu [From Santyl] latex Allergy Rash/Hives Verified 10/09/20 15:11 pollen extracts AdvReac Mild Itching Verified 10/09/20 15:11 Physical Exam Vitals: Vital Signs Temp Pulse Resp BP Pulse Ox 10/15/20 07:35 97.9 F 70 18 122/70 98 10/15/20 02:20 97.9 F 72 17 119/68 97 10/14/20 19:20 97.7 F 73 18 125/72 99 10/14/20 19:15 97.7 F 73 17 125/72 99 10/14/20 14:00 98.2 F 72 18 115/76 97 Intake and Output 10/14/20 10/15/20 10/15/20 22:59 06:59 14:59 Output Total 1200 700 Balance -1200 -700 Output: Urine 1200 700 Other: Voiding Method Indwelling Catheter Indwelling Catheter # Bowel Movements 1 Results 10/15/20 09:27 10/14/20 05:29 CBC 10/15/20 Range/Units 09:27 WBC 10.8 H (3.8-10.6) k/uL RBC 3.16 L (3.80-5.40) m/uL Hgb 7.7 L (11.4-16.0) gm/dL Hct 26.0 L (34.0-46.0) % Plt Count 281 (150-450) k/uL Current Medications Generic Name Dose Route Start Last Admin Trade Name Freq PRN Reason Stop Dose Admin Acetaminophen 650 mg 10/12/20 07:57 10/14/20 08:30 Acetaminophen Tab 325 Mg Tab PO 650 mg Q6HR PRN Administration Fever and/ or Pain Carvedilol 12.5 mg 10/09/20 21:00 10/15/20 08:42 Carvedilol 12.5 Mg Tab PO 12.5 mg BID DAVIE Administration Gabapentin 300 mg 10/09/20 21:00 10/14/20 20:29 Gabapentin 300 Mg Cap PO 300 mg HS DAVIE Administration Cefepime HCl 2 gm/ Sodium 100 mls @ 25 mls/hr 10/10/20 21:30 10/15/20 08:42 Chloride IVPB 25 mls/hr Q12HR [facility]IE Administration Sodium Chloride 1,000 mls @ 50 mls/hr 10/11/20 19:00 10/15/20 02:16 Saline 0.9% IV 50 mls/hr .Q20H [facility]IE Administration Insulin Aspart 0 unit 10/09/20 17:30 10/15/20 07:16 Insulin Aspart (Novolog) 100 Unit/Ml Vial SQ Not Given ACHS [facility] Protocol Insulin Detemir 10 unit 10/09/20 21:00 10/14/20 20:57 Insulin Detemir (Levemir) 100 Unit/Ml Syr SQ 10 unit HS DAVIE Administration Morphine Sulfate 2 mg 10/09/20 16:07 Morphine Sulfate 2 Mg/Ml Syringe IV Q4HR PRN Severe Pain Naloxone HCl 0.2 mg 10/09/20 15:36 Naloxone 0.4 Mg/Ml 1 Ml Vial IV Q2M PRN Opioid Reversal Naloxone HCl 0.2 mg 10/09/20 16:07 Naloxone 0.4 Mg/Ml 1 Ml Vial IV Q2M PRN Opioid Reversal Ondansetron HCl 4 mg 10/09/20 16:07 Ondansetron 4 Mg/2 Ml Vial IVP Q8HR PRN Nausea And Vomiting Tramadol/Acetaminophen 1 each 10/09/20 16:15 10/15/20 05:59 Tramadol-Acetaminop 37.5-325mg 1 Each Tab PO 1 each TID PRN Administration Pain Intake and Output 10/14/20 10/15/20 10/15/20 22:59 06:59 14:59 Output Total 1200 700 Balance -1200 -700 Output: Urine 1200 700 Other: Voiding Method Indwelling Catheter Indwelling Catheter # Bowel Movements 1 10/15/20 09:27 10/14/20 05:29
[2020-10-15 13:24] VITALS: BMI 54.9
[2020-10-15] MEDS: ACETAMINOPHEN TAB 325 MG TAB PO PRN (14:24)
--- NOTE | 2020-10-15 14:26 | P.PN ---
Subjective Progress Note Date: 10/15/20 She was seen and examined lying in bed. She is more awake today. She has pain to the left lower extremity. She is able to move bilateral lower extremities. No acute changes through the night. Patient remains agreeable to plan of left [id number]-ocs-[id number] amputation tentatively scheduled for . Bilateral lower extremity dressing changed this morning. Objective - Vital Signs Vital signs: Vital Signs Temp 97.9 F 10/15/20 07:35 Pulse 70 10/15/20 07:35 Resp 18 10/15/20 07:35 BP 122/70 10/15/20 07:35 Pulse Ox 98 10/15/20 07:35 Intake & Output 10/14/20 10/15/20 10/15/20 18:59 06:59 18:59 Output Total 500 1400 Balance -500 -1400 Weight 145.15 kg Output: Urine 500 1400 Other: Voiding Method Indwelling Catheter Indwelling Catheter Indwelling Catheter # Bowel Movements 1 - Exam General appearance: The patient is alert, oriented, in no acute distress. HET: Head is normocephalic and atraumatic. Neck: Supple. Trachea midline. Extremities: Bilateral lower extremities with dressings that are clean dry and intact. Good cap refill bilateral lower extremities. Patient is able to move and wiggle toes. Left lower extremity tender to palpation. Neurological: No focal deficits. Strength and sensation are grossly intact. - Labs CBC & Chem 7: 10/15/20 09:27 10/14/20 05:29 Labs: Abnormal Lab Results - Last 24 Hours (Table) 10/09/20 10/14/20 10/14/20 Range/Units 20:54 16:32 20:45 WBC (3.8-10.6) k/uL RBC (3.80-5.40) m/uL Hgb (11.4-16.0) gm/dL Hct (34.0-46.0) % MCH (25.0-35.0) pg MCHC (31.0-37.0) g/dL RDW (11.5-15.5) % Neutrophils # (1.3-7.7) k/uL Lymphocytes # (1.0-4.8) k/uL POC Glucose (mg/dL) 172 H 191 H (75-99) mg/dL Crossmatch See Detail 10/15/20 10/15/20 10/15/20 Range/Units 06:58 09:27 11:49 WBC 10.8 H (3.8-10.6) k/uL RBC 3.16 L (3.80-5.40) m/uL Hgb 7.7 L (11.4-16.0) gm/dL Hct 26.0 L (34.0-46.0) % MCH 24.2 L (25.0-35.0) pg MCHC 29.5 L (31.0-37.0) g/dL RDW 19.6 H (11.5-15.5) % Neutrophils # 9.2 H (1.3-7.7) k/uL Lymphocytes # 0.8 L (1.0-4.8) k/uL POC Glucose (mg/dL) 131 H 136 H (75-99) mg/dL Crossmatch Microbiology - Last 24 Hours (Table) 10/11/20 06:15 Blood Culture - Preliminary Blood No Growth after 96 hours Assessment and Plan Assessment: 1. Significant left lower extremity wounds 2. Left ankle infection 3. Bacteremia 4. Acute on chronic anemia Plan: There was a long discussion between Dr. Scruggs and the patient regarding plan of care to proceed with a left [id number] amputation once patient has a hemoglobin at least above 8. Awaiting further blood for transfusion prior to proceeding with surgery. Patient is tentatively scheduled for a left xwcqz-mll-pleu amputation on the until then she will remain on systemic antibiotics. The impression and plan of care has been dictated as directed. I performed a history and examination of this patient, discussed the same with the dictator. I agree with the dictator's note ,documented as a scribe. Any additional findings or plans will be noted.
[2020-10-15 16:41] LABS: Glucose,Whole Blood 165 mg/dL (75-99)
--- NOTE | 2020-10-15 17:32 | ECHOF ---
Referral Reason:LV function MEASUREMENTS -------- HEIGHT: 162.6 cm WEIGHT: 145.1 kg BP: 122/70 RVIDd: 4.4 cm (< 3.3) IVSd: 1.6 cm (0.6 - 1.1) LVIDd: 5.5 cm (3.9 - 5.3) LVPWd: 1.3 cm (0.6 - 1.1) IVSs: 1.8 cm LVIDs: 4.1 cm LVPWs: 1.9 cm LAESV Index (A-L): 35.50 ml/m Ao Diam: 3.0 cm (2.0 - 3.7) AV Cusp: 1.9 cm (1.5 - 2.6) LA Diam: 5.3 cm (2.7 - 3.8) MV EXCURSION: 17.874 mm (> 18.000) MV EF SLOPE: 98 mm/s (70 - 150) EPSS: 1.1 cm MV E Shmuel: 1.50 m/s MV DecT: 183 ms MV A Shmuel: 0.83 m/s MV E/A Ratio: 1.81 RAP: 5.00 mmHg RVSP: 88.59 mmHg FINDINGS -------- This was a technically difficult study with suboptimal apical views. The left ventricle is mildly dilated. There is moderate concentric left ventricular hypertrophy. Overall left ventricular systolic function is mildly impaired with, an EF between 45 - 50 %. Septal wall motion is delayed and consistent with prior cardiac surgery. The right ventricle is severely enlarged. LA is moderately dilated 34-39 ml/m2 The right atrium is moderately enlarged. 5.0mg of Lumason was utilized for enhancement of images Interatrial and interventricular septum intact. There is no evidence of aortic regurgitation. There is no evidence of aortic stenosis. Mild mitral annular calcification present. Moderate mitral regurgitation is present. Moderate to severe tricuspid regurgitation present. There is severe pulmonary hypertension. The r ight ventricular systolic pressure, as measured by Doppler, is 88.59mmHg. There is no pulmonic regurgitation present. The aortic root size is normal. IVC Not well visulized. There is no pericardial effusion. CONCLUSIONS -------- 1. The left ventricle is mildly dilated. 2. There is moderate concentric left ventricular hypertrophy. 3. Overall left ventricular systolic function is mildly impaired with, an EF between 45 - 50 %. 4. The right ventricle is severely enlarged. 5. LA is moderately dilated 34-39 ml/m2 6. The right atrium is moderately enlarged. 7. Mild mitral annular calcification present. 8. Moderate mitral regurgitation is present. 9. Moderate to severe tricuspid regurgitation present. 10. There is severe pulmonary hypertension. 11. The right ventricular systolic pressure, as measured by Doppler, is 88.59mmHg. INFORMATION SECURITY CONSULTANT: Cortney Douglas RDCS
[2020-10-15] MEDS: GABAPENTIN 300 MG CAP PO SCH (20:52)
[2020-10-15] MEDS: INSULIN DETEMIR (LEVEMIR) 100 UNIT/ML SYR SQ SCH (20:52)
[2020-10-15 20:58] LABS: Glucose,Whole Blood 177 mg/dL (75-99)
--- NOTE | 2020-10-15 23:00 | P.PN ---
Progress Note - Text Progress Note Date: 10/15/20 Interval history: This is a patient with acute on chronic lower extremity leg wounds Patient p resents with worsening wounds with drainage and oozing. Infected -cellulitis. Cultures positive for Proteus mirabilis and patient on IV cefepime. Computed tomography scan of the lower extremity showed multiple areas of bone loss involving the tarsal bones, subcutaneous edema also some air bubbles around the tarsal metatarsal joints of the midfoot. Patient was transfused a unit of blood on October 11 and on October 12. Today-patient sitting up in bed. Some pain is present. Tolerating diet. Review of systems: Was done for constitutional, cardiovascular, GI, pulmonary. relevant finding as above Active Medications Acetaminophen (Acetaminophen Tab 325 Mg Tab) 650 mg PO Q6HR PRN PRN Reason: Fever and/ or Pain Last Admin: 10/15/20 14:24 Dose: 650 mg Documented by: Carvedilol (Carvedilol 12.5 Mg Tab) 12.5 mg PO BID [facility] Last Admin: 10/15/20 20:52 Dose: 12.5 mg Documented by: Gabapentin (Gabapentin 300 Mg Cap) 300 mg PO [facility] Last Admin: 10/15/20 20:52 Dose: 300 mg Documented by: Cefepime HCl 2 gm/ Sodium (Chloride) 100 mls @ 25 mls/hr IVPB Q12HR [facility] Last Admin: 10/15/20 20:52 Dose: 25 mls/hr Documented by: Sodium Chloride (Saline 0.9%) 1,000 mls @ 50 mls/hr IV .Q20H [facility] Last Admin: 10/15/20 22:41 Dose: 50 mls/hr Documented by: Insulin Aspart (Insulin Aspart (Novolog) 100 Unit/Ml Vial) 0 unit SQ [facility]; Protocol Last Admin: 10/15/20 20:52 Dose: 3 unit Documented by: Insulin Detemir (Insulin Detemir (Levemir) 100 Unit/Ml Syr) 10 unit SQ [facility] Last Admin: 10/15/20 20:52 Dose: 10 unit Documented by: Morphine Sulfate (Morphine Sulfate 2 Mg/Ml Syringe) 2 mg IV Q4HR PRN PRN Reason: Severe Pain Naloxone HCl (Naloxone 0.4 Mg/Ml 1 Ml Vial) 0.2 mg IV Q2M PRN PRN Reason: Opioid Reversal Naloxone HCl (Naloxone 0.4 Mg/Ml 1 Ml Vial) 0.2 mg IV Q2M PRN PRN Reason: Opioid Reversal Ondansetron HCl (Ondansetron 4 Mg/2 Ml Vial) 4 mg IVP Q8HR PRN PRN Reason: Nausea And Vomiting Tramadol/Acetaminophen (Tramadol-Acetaminop 37.5-325mg 1 Each Tab) 1 each PO TID PRN PRN Reason: Pain Last Admin: 10/15/20 20:52 Dose: 1 each Documented by: On examination: VITAL SIGNS: 98.9, 75, 17, 117/69, 7% on room air GENERAL APPEARANCE: Sitting up, in bed eating HEENT: Normal external appearance of nose and ear. Oral cavity normal EYES: Pupils equal. Conjunctiva normal. NECK: JVD unable to assess,. Mass not palpable. RESPIRATORY: Respiratory effort increased. Diminished breath sounds. CARDIOVASCULAR: First and second sounds normal. Edema present. ABDOMEN: Soft. Liver and spleen not palpable. No tenderness. No mass palpable. PSYCHIATRY: Alert and oriented x3. Mood and affect normal. EXTREMITIES: Dressing is present over the left lower extremity, , ischemic toes INVESTIGATIONS, reviewed in the clinical context: October 15: White count 10.8 hemoglobin 7.7 White count 10.3 hemoglobin 7.8 platelets 309 Creatinine 1.5 2-D echocardiogram: Moderate concentric LVH. EF 45-50%. Moderate to severe tricuspid regurgitation. Severe pulmonary hypertension. Assessment: -Acute on chronic bilateral lower extremity wounds from venous stasis ulcers, with possible gas gangrene/acute osteomyelitis. Pending surgery -Chronic kidney disease stage III from diabetic nephropathy and nephrosclerosis -Morbid obesity BMI 54.9 -Diabetes mellitus type 2 chronically on insulin -GERD -Essential hypertension -Hyperlipidemia -Coronary artery disease with prior history of bypass -Diabetic peripheral neuropathy -Chronic low back pain from arthritis -Chronic medical debility patient is a walker or wheelchair -Secondary severe pulmonary hypertension -Moderate mitral and moderate to severe tricuspid regurgitation Plan: IV cefepime. Patient be transfused 3rd unit of blood today. Tentative plan for surgery .
--- NOTE | 2020-10-15 23:21 | PN ---
PROGRESS NOTE DATE OF SERVICE: 10/15/2020 REASON FOR FOLLOWUP: Left leg venous stasis ulcer with secondary infection and bacteremia. INTERVAL COURSE: The patient is currently afebrile. The patient is breathing comfortably. Patient denies having any chest pain. No shortness of breath or cough. No nausea, vomiting, abdominal pain, or any worsening pain to the left leg. PHYSICAL EXAMINATION: Blood pressure 126/78 with a pulse of 74, temperature 98.5. She is 99% on room air. General description: The patient is a middle age female lying in bed in no distress. Respiratory system: Unlabored breathing, clear to auscultation anteriorly. Heart S1, S2. Regular rate and rhythm. Abdomen soft, no tenderness. Left leg is currently wrapped up. No obvious drainage on the dressing. LABS: Hemoglobin 7, white count 10.8. DIAGNOSTIC IMPRESSION AND PLAN: Patient with left leg infected wound with secondary bacteremia. The patient is covered with cefepime. Awaiting left [id number] and continue supportive care. MMODL / IJN: [id number] /
[2020-10-16] MEDS: ACETAMINOPHEN TAB 325 MG TAB PO PRN ×3 (01:38→21:21)
[2020-10-16 06:42] LABS: Glucose,Whole Blood 106 mg/dL (75-99)
[2020-10-16 06:54] LABS: Anisocytosis Slight; HCT 30.6 % (34.0-46.0); HGB 9.1 gm/dL (11.4-16.0); Hypochromasia Marked; MCH 24.9 pg (25.0-35.0); MCHC 29.7 g/dL (31.0-37.0); MCV 83.8 fL (80.0-100.0); Mean Platelet Volume 6.8; Microcytosis Slight; Platelet Count 298 k/uL (150-450); Poikilocytosis Moderate; RBC 3.65 m/uL (3.80-5.40); RDW 19.4 % (11.5-15.5); WBC 11.1 k/uL (3.8-10.6)
[2020-10-16] MEDS: INSULIN ASPART (NovoLOG) 100 UNIT/ML VIAL SQ SCH ×4 (07:11→21:22)
[2020-10-16] MEDS: carvediloL 12.5 MG TAB PO SCH ×2 (07:27→21:21)
[2020-10-16] MEDS: CEFEPIME 2 GM in SODIUM CHLORIDE 0.9% 100 ML IVPB SCH ×2 (07:27→21:21)
[2020-10-16 08:46] LABS: African American GFR (CKD) 68 (>60 ml/min/1.73 sqM); Anion Gap 4 mmol/L; Blood Urea Nitrogen 26 mg/dL (7-17); Calcium 7.7 mg/dL (8.4-10.2); Carbon Dioxide 23 mmol/L (22-30); Chloride 109 mmol/L (98-107); Glucose 105 mg/dL (74-99); Non-African American GFR(CKD) 59 (>60 ml/min/1.73 sqM); Potassium 4.2 mmol/L (3.5-5.1); Sodium 136 mmol/L (137-145)
[2020-10-16 11:40] LABS: Glucose,Whole Blood 147 mg/dL (75-99)
--- NOTE | 2020-10-16 11:41 | P.PN ---
Subjective Progress Note Date: 10/16/20 HISTORY OF PRESENT ILLNESS This is a 59-year-old female undergoing treatment for left lower extr emity wound infection and bacteremia. Culture is positive for Proteus mirabilis and patient is covered with cefepime. She is scheduled for amputation on . Patient denies having any significant pain to the left lower extremity. No chest pain or shortness of breath. No cough. No nausea or vomiting. She has been afebrile, heart rate 73, blood pressure 133/72, pulse ox 98% on room air. WBC 11.1, hemoglobin 9.1. Creatinine 1.04. PHYSICAL EXAMINATION Gen: This is a morbidly obese female. She is resting in bed and appears to be in no acute distress. HEENT: Head is atraumatic, normocephalic. Pupils equal, round. Sclerae is anicteric. NECK: Supple. No JVD. No lymphadenopathy. LUNGS: Clear to auscultation. No wheezes or rhonchi. No intercostal retractions. No accessory muscle usage. HEART: Regular rate and rhythm. No murmur. ABDOMEN: Soft. Bowel sounds are present. No masses. No tenderness. Scruggs catheter in place. EXTREMITIES: Dressings to the lower extremity. No calf tenderness. NEUROLOGICAL: Patient is awake, alert and oriented x3. ASSESSMENT Proteus mirabilis bacteremia Left venous stasis ulcer with cellulitis Possible osteomyelitis of the left ankle scheduled for left [id number] amputation Diabetes mellitus type 2 Acute kidney injury with chronic kidney disease stage III Chronic diastolic heart failure PLAN Continue cefepime Plan is for left [id number] amputation tomorrow Continue supportive care The above dictated assessment and findings were discussed with Dr. Gibbs. The impression and plan of care have been directed as dictated. Dora Armenta nurse practitioner acting as scribe for Dr. Gibbs. Objective - Vital Signs Vital signs: Vital Signs Temp 98.5 F 10/16/20 07:10 Pulse 70 10/16/20 07:10 Resp 18 10/16/20 07:10 BP 133/72 10/16/20 07:10 Pulse Ox 98 10/16/20 07:10 Intake & Output 10/15/20 10/16/20 10/16/20 18:59 06:59 18:59 Intake Total 0 720 Output Total 800 Balance 0 -80 Weight 145.15 kg Intake: Oral 100 Blood Product 0 620 Rc As 1 Unit 310 [id number] Rc As-1 Unit 0 310 [id number] Output: Urine 800 Other: Voiding Method Diaper Diaper # Voids 3 - Labs CBC & Chem 7: 10/16/20 06:03 10/16/20 06:03 Labs: Abnormal Lab Results - Last 24 Hours (Table) 10/13/20 10/15/20 10/15/20 Range/Units 21:05 09:27 11:49 WBC 10.8 H (3.8-10.6) k/uL RBC 3.16 L (3.80-5.40) m/uL Hgb 7.7 L (11.4-16.0) gm/dL Hct 26.0 L (34.0-46.0) % MCH 24.2 L (25.0-35.0) pg MCHC 29.5 L (31.0-37.0) g/dL RDW 19.6 H (11.5-15.5) % Neutrophils # 9.2 H (1.3-7.7) k/uL Lymphocytes # 0.8 L (1.0-4.8) k/uL Sodium (137-145) mmol/L Chloride (98-107) mmol/L BUN (7-17) mg/dL Glucose (74-99) mg/dL POC Glucose (mg/dL) 136 H (75-99) mg/dL Calcium (8.4-10.2) mg/dL Crossmatch See Detail 10/15/20 10/15/20 10/16/20 Range/Units 16:39 20:32 06:03 WBC 11.1 H (3.8-10.6) k/uL RBC 3.65 L (3.80-5.40) m/uL Hgb 9.1 L (11.4-16.0) gm/dL Hct 30.6 L (34.0-46.0) % MCH 24.9 L (25.0-35.0) pg MCHC 29.7 L (31.0-37.0) g/dL RDW 19.4 H (11.5-15.5) % Neutrophils # (1.3-7.7) k/uL Lymphocytes # (1.0-4.8) k/uL Sodium (137-145) mmol/L Chloride (98-107) mmol/L BUN (7-17) mg/dL Glucose (74-99) mg/dL POC Glucose (mg/dL) 165 H 177 H (75-99) mg/dL Calcium (8.4-10.2) mg/dL Crossmatch 10/16/20 10/16/20 Range/Units 06:03 06:40 WBC (3.8-10.6) k/uL RBC (3.80-5.40) m/uL Hgb (11.4-16.0) gm/dL Hct (34.0-46.0) % MCH (25.0-35.0) pg MCHC (31.0-37.0) g/dL RDW (11.5-15.5) % Neutrophils # (1.3-7.7) k/uL Lymphocytes # (1.0-4.8) k/uL Sodium 136 L (137-145) mmol/L Chloride 109 H (98-107) mmol/L BUN 26 H (7-17) mg/dL Glucose 105 H (74-99) mg/dL POC Glucose (mg/dL) 106 H (75-99) mg/dL Calcium 7.7 L (8.4-10.2) mg/dL Crossmatch Microbiology - Last 24 Hours (Table) 10/11/20 06:15 Blood Culture - Preliminary Blood No Growth after 120 hours 10/11/20 16:25 Anaerobic Culture - Final Foot - Left
--- NOTE | 2020-10-16 13:23 | P.PN ---
Subjective Progress Note Date: 10/16/20 She was seen and examined lying in bed. She is without any acute changes through the night. Denies any fevers or chills. The patient received 2 units of PRBC transfusion yesterday, today's hemoglobin is 9.1. Objective - Vital Signs Vital signs: Vital Signs Temp 98.5 F 10/16/20 07:10 Pulse 70 10/16/20 07:10 Resp 18 10/16/20 07:10 BP 133/72 10/16/20 07:10 Pulse Ox 98 10/16/20 07:10 Intake & Output 10/15/20 10/16/20 10/16/20 18:59 06:59 18:59 Intake Total 0 720 Output Total 800 Balance 0 -80 Weight 145.15 kg Intake: Oral 100 Blood Product 0 620 Rc As 1 Unit 310 [id number] Rc As-1 Unit 0 310 [id number] Output: Urine 800 Other: Voiding Method Diaper # Voids 3 - Exam General appearance: The patient is alert, oriented, in no acute distress. HET: Head is normocephalic and atraumatic. Neck: Supple. Trachea midline. Extremities: Bilateral lower extremities with dressings that are clean dry and intact. Good cap refill bilateral lower extremities. Patient is able to move and wiggle toes. Left lower extremity tender to palpation. Neurological: No focal deficits. Strength and sensation are grossly intact. - Labs CBC & Chem 7: 10/16/20 06:03 10/16/20 06:03 Labs: Abnormal Lab Results - Last 24 Hours (Table) 10/09/20 10/13/20 10/15/20 Range/Units 20:54 21:05 09:27 WBC 10.8 H (3.8-10.6) k/uL RBC 3.16 L (3.80-5.40) m/uL Hgb 7.7 L (11.4-16.0) gm/dL Hct 26.0 L (34.0-46.0) % MCH 24.2 L (25.0-35.0) pg MCHC 29.5 L (31.0-37.0) g/dL RDW 19.6 H (11.5-15.5) % Neutrophils # 9.2 H (1.3-7.7) k/uL Lymphocytes # 0.8 L (1.0-4.8) k/uL POC Glucose (mg/dL) (75-99) mg/dL Crossmatch See Detail See Detail 10/15/20 10/15/20 10/15/20 Range/Units 11:49 16:39 20:32 WBC (3.8-10.6) k/uL RBC (3.80-5.40) m/uL Hgb (11.4-16.0) gm/dL Hct (34.0-46.0) % MCH (25.0-35.0) pg MCHC (31.0-37.0) g/dL RDW (11.5-15.5) % Neutrophils # (1.3-7.7) k/uL Lymphocytes # (1.0-4.8) k/uL POC Glucose (mg/dL) 136 H 165 H 177 H (75-99) mg/dL Crossmatch 10/16/20 10/16/20 Range/Units 06:03 06:40 WBC 11.1 H (3.8-10.6) k/uL RBC 3.65 L (3.80-5.40) m/uL Hgb 9.1 L (11.4-16.0) gm/dL Hct 30.6 L (34.0-46.0) % MCH 24.9 L (25.0-35.0) pg MCHC 29.7 L (31.0-37.0) g/dL RDW 19.4 H (11.5-15.5) % Neutrophils # (1.3-7.7) k/uL Lymphocytes # (1.0-4.8) k/uL POC Glucose (mg/dL) 106 H (75-99) mg/dL Crossmatch Microbiology - Last 24 Hours (Table) 10/11/20 16:25 Anaerobic Culture - Final Foot - Left 10/11/20 06:15 Blood Culture - Preliminary Blood No Growth after 96 hours Assessment and Plan Assessment: 1. Significant left lower extremity wounds 2. Left ankle infection 3. Bacteremia 4. Acute on chronic anemia Plan: 1. Nothing by mouth after midnight 2. Plan for a left lwbsm-tro-vqox amputation tomorrow with Dr. Scruggs 3. Repeat CBC, BMP in the morning The impression and plan of care has been dictated as directed. Dr. Scruggs I performed a history and examination of this patient, discussed the same with the dictator. I agree with the dictator's note ,documented as a scribe. Any additional findings or plans will be noted.
--- NOTE | 2020-10-16 13:29 | P.PN ---
Subjective Progress Note Date: 10/16/20 CHIEF COMPLAINT: Preop clearance HISTORY OF PRESENT ILLNESS: 10/15/2020 This is a 59-year-old female with a past medical history significant for hypertension, hyperlipidemia, diabetes mellitus, coronary artery disease with previous CABG. Patient states she has not followed with a rubber tubing backer in a few years due to personal issues. We have been asked to see the patient in consultation for pre-op clearance. Patient is scheduled for left above the knee amputation on 10/17/[address] Scruggs. Patient examined this morning at the bedside. She denies chest pain or pressure. She denies any shortness of breath. Denies dizziness or lightheadedness. Vital signs stable. Blood pressure 122/70. Heart rate in the 70s. EKG reveals sinus mechanism with first- degree AV block. Laboratory data: WBC 10.8. Hemoglobin 7.7. Platelet count 281. Sodium 137. Potassium 4.7. BUN 43. Creatinine 1.5. Magnesium 1.8. Current home cardiac medications include Plavix 75 mg daily and Coreg 12.5 mg twice a day 10/16/2020 Patient examined at the bedside. Patient denies chest pain or pressure. Denies shortness of breath. Echocardiogram completed reveals ejection fraction 45-50%, moderate mitral regurgitation, moderate to severe tricuspid regurgitation, and severe pulmonary hypertension. Vital signs stable. Blood pressure 133/72. Heart rate in the 70s. She is on room air with oxygen saturations greater than 92%. She is afebrile. PHYSICAL EXAM: VITAL SIGNS: Reviewed. GENERAL: Well-developed in no acute distress. HEENT: Head is normocephalic. Pupils are equal, round. Sclerae anicteric. Mucous membranes of the mouth are moist. Neck supple. No JVD or thyromegaly LUNGS: Respirations even and unlabored. Lungs essentially clear to auscultation bilaterally. HEART: Regular rate and rhythm. S1 and S2 heard. ABDOMEN: Soft. Nondistended. Nontender. EXTREMITIES: Normal range of motion. No clubbing or cyanosis. Dressing to lower extremity clean dry and intact. NEUROLOGIC: Awake and alert. Oriented x 3. ASSESSMENT: Proteus mirabilis bacteremia Left venous stasis ulcer with cellulitis Possible osteomyelitis of the left ankle Coronary artery disease with previous CABG 2013 Ischemic cardiomyopathy, ejection fraction 45-50% Valvular heart disease: Moderate mitral regurgitation and moderate to severe tri cuspid regurgitation Severe pulmonary hypertension Hypertension Diabetes mellitus Obesity: BMI 54.9 PLAN: Continue current cardiac medications Patient has no absolute contraindications to undergo surgical intervention. However she is at an intermediate risk from a cardiology standpoint Further recommendations pending patient course Nurse practitioner note has been reviewed by physician. Signing provider agrees with the documented findings, assessment, and plan of care. Objective - Vital Signs Vital signs: Vital Signs Temp 98.5 F 10/16/20 07:10 Pulse 70 10/16/20 07:10 Resp 18 10/16/20 07:10 BP 133/72 10/16/20 07:10 Pulse Ox 98 10/16/20 07:10 Intake & Output 10/15/20 10/16/20 10/16/20 18:59 06:59 18:59 Intake Total 0 720 Output Total 800 Balance 0 -80 Weight 145.15 kg Intake: Oral 100 Blood Product 0 620 Rc As 1 Unit 310 [id number] Rc As-1 Unit 0 310 [id number] Output: Urine 800 Other: Voiding Method Diaper Diaper # Voids 3 - Labs CBC & Chem 7: 10/16/20 06:03 10/16/20 06:03 Labs: Abnormal Lab Results - Last 24 Hours (Table) 10/13/20 10/15/20 10/15/20 Range/Units 21:05 11:49 16:39 WBC (3.8-10.6) k/uL RBC (3.80-5.40) m/uL Hgb (11.4-16.0) gm/dL Hct (34.0-46.0) % MCH (25.0-35.0) pg MCHC (31.0-37.0) g/dL RDW (11.5-15.5) % Sodium (137-145) mmol/L Chloride (98-107) mmol/L BUN (7-17) mg/dL Glucose (74-99) mg/dL POC Glucose (mg/dL) 136 H 165 H (75-99) mg/dL Calcium (8.4-10.2) mg/dL Crossmatch See Detail 10/15/20 10/16/20 10/16/20 Range/Units 20:32 06:03 06:03 WBC 11.1 H (3.8-10.6) k/uL RBC 3.65 L (3.80-5.40) m/uL Hgb 9.1 L (11.4-16.0) gm/dL Hct 30.6 L (34.0-46.0) % MCH 24.9 L (25.0-35.0) pg MCHC 29.7 L (31.0-37.0) g/dL RDW 19.4 H (11.5-15.5) % Sodium 136 L (137-145) mmol/L Chloride 109 H (98-107) mmol/L BUN 26 H (7-17) mg/dL Glucose 105 H (74-99) mg/dL POC Glucose (mg/dL) 177 H (75-99) mg/dL Calcium 7.7 L (8.4-10.2) mg/dL Crossmatch 10/16/20 Range/Units 06:40 WBC (3.8-10.6) k/uL RBC (3.80-5.40) m/uL Hgb (11.4-16.0) gm/dL Hct (34.0-46.0) % MCH (25.0-35.0) pg MCHC (31.0-37.0) g/dL RDW (11.5-15.5) % Sodium (137-145) mmol/L Chloride (98-107) mmol/L BUN (7-17) mg/dL Glucose (74-99) mg/dL POC Glucose (mg/dL) 106 H (75-99) mg/dL Calcium (8.4-10.2) mg/dL Crossmatch Microbiology - Last 24 Hours (Table) 10/11/20 06:15 Blood Culture - Preliminary Blood No Growth after 120 hours 10/11/20 16:25 Anaerobic Culture - Final Foot - Left
[2020-10-16 16:41] LABS: Glucose,Whole Blood 208 mg/dL (75-99)
[2020-10-16 20:49] LABS: Glucose,Whole Blood 193 mg/dL (75-99)
[2020-10-16] MEDS: INSULIN DETEMIR (LEVEMIR) 100 UNIT/ML SYR SQ SCH (21:21)
[2020-10-16] MEDS: GABAPENTIN 300 MG CAP PO SCH (21:21)
[2020-10-16] MEDS: SODIUM CHLORIDE 0.9% 1,000 ML IV SCH (21:28)
--- NOTE | 2020-10-16 23:49 | P.PN ---
Progress Note - Text Progress Note Date: 10/16/20 Interval history: This is a patient with acute on chronic lower extremity leg wounds Patient p resents with worsening wounds with drainage and oozing. Infected -cellulitis. Cultures positive for Proteus mirabilis and patient on IV cefepime. Computed tomography scan of the lower extremity showed multiple areas of bone loss involving the tarsal bones, subcutaneous edema also some air bubbles around the tarsal metatarsal joints of the midfoot. Patient was transfused a unit of blood on October 11 and on October 12. Today-having her lunch. Pain control. Pending surgery. Review of systems: Was done for constitutional, cardiovascular, GI, pulmonary. relevant finding as above Active Medications Acetaminophen (Acetaminophen Tab 325 Mg Tab) 650 mg PO Q6HR PRN PRN Reason: Fever and/ or Pain Last Admin: 10/16/20 21:21 Dose: 650 mg Documented by: Carvedilol (Carvedilol 12.5 Mg Tab) 12.5 mg PO BID [facility] Last Admin: 10/16/20 21:21 Dose: 12.5 mg Documented by: Gabapentin (Gabapentin 300 Mg Cap) 300 mg PO [facility] Last Admin: 10/16/20 21:21 Dose: 300 mg Documented by: Cefepime HCl 2 gm/ Sodium (Chloride) 100 mls @ 25 mls/hr IVPB Q12HR [facility] Last Admin: 10/16/20 21:21 Dose: 25 mls/hr Documented by: Sodium Chloride (Saline 0.9%) 1,000 mls @ 50 mls/hr IV .Q20H [facility] Last Admin: 10/16/20 21:28 Dose: Not Given Documented by: Lactated Ringer's (Lactated Ringers) 1,000 mls @ 20 mls/hr IV .Q24H [facility] Insulin Aspart (Insulin Aspart (Novolog) 100 Unit/Ml Vial) 0 unit SQ [facility]; Protocol Last Admin: 10/16/20 21:22 Dose: Not Given Documented by: Insulin Detemir (Insulin Detemir (Levemir) 100 Unit/Ml Syr) 10 unit SQ [facility] Last Admin: 10/16/20 21:21 Dose: 10 unit Documented by: Morphine Sulfate (Morphine Sulfate 2 Mg/Ml Syringe) 2 mg IV Q4HR PRN PRN Reason: Severe Pain Naloxone HCl (Naloxone 0.4 Mg/Ml 1 Ml Vial) 0.2 mg IV Q2M PRN PRN Reason: Opioid Reversal Naloxone HCl (Naloxone 0.4 Mg/Ml 1 Ml Vial) 0.2 mg IV Q2M PRN PRN Reason: Opioid Reversal Ondansetron HCl (Ondansetron 4 Mg/2 Ml Vial) 4 mg IVP Q8HR PRN PRN Reason: Nausea And Vomiting Tramadol/Acetaminophen (Tramadol-Acetaminop 37.5-325mg 1 Each Tab) 1 each PO TID PRN PRN Reason: Pain Last Admin: 10/15/20 20:52 Dose: 1 each Documented by: On examination: VITAL SIGNS: 97.7, 75, 20, 110/61, 97% on room air GENERAL APPEARANCE: Sitting up, in bed , 80 lunch EYES: Pupils equal. Conjunctiva normal. NECK: JVD unable to assess,. Mass not palpable. RESPIRATORY: Respiratory effort increased. Diminished breath sounds. CARDIOVASCULAR: First and second sounds normal. Edema present. ABDOMEN: Soft. Liver and spleen not palpable. No tenderness. No mass palpable. PSYCHIATRY: Alert and oriented x3. Mood and affect normal. EXTREMITIES: Dressing is present over the left lower extremity, , ischemic toes INVESTIGATIONS, reviewed in the clinical context: October 16: Hemoglobin 9.1 creatinine 1.04 October 15: White count 10.8 hemoglobin 7.7 White count 10.3 hemoglobin 7.8 platelets 309 Creatinine 1.5 2-D echocardiogram: Moderate concentric LVH. EF 45-50%. Moderate to severe tricuspid regurgitation. Severe pulmonary hypertension. Assessment: -Acute on chronic bilateral lower extremity wounds from venous stasis ulcers, with possible gas gangrene/acute osteomyelitis. Pending surgery -Chronic kidney disease stage III from diabetic nephropathy and nephrosclerosis -Morbid obesity BMI 54.9 -Diabetes mellitus type 2 chronically on insulin -GERD -Essential hypertension -Hyperlipidemia -Coronary artery disease with prior history of bypass -Diabetic peripheral neuropathy -Chronic low back pain from arthritis -Chronic medical debility patient is a walker or wheelchair -Secondary severe pulmonary hypertension -Moderate mitral and moderate to severe tricuspid regurgitation Plan: IV cefepime.pending surgery. Discussed with Dr. Scruggs. And the patient.
[2020-10-17] MEDS: LACTATED RINGERS 1,000 ML IV SCH ×2 (00:38→20:48)
[2020-10-17 07:12] LABS: Glucose,Whole Blood 102 mg/dL (75-99)
[2020-10-17] MEDS ORDERED: ROCURONIUM 10 MG/ML (10 ML VIAL) IV ONE (07:23)
[2020-10-17] MEDS ORDERED: fentaNYL (PF) 50 MCG/ML 2 ML AMP ONE (07:23)
[2020-10-17] MEDS ORDERED: NEOSTIGMINE 1 MG/ML 10 ML VIAL ONE (07:23)
[2020-10-17] MEDS ORDERED: PROPOFOL 10 MG/ML 20 ML VIAL IV ONE (07:23)
[2020-10-17] MEDS ORDERED: HYDROmorphone (PF) 1 MG/ML ONE (07:23)
[2020-10-17] MEDS ORDERED: CLINDAMYCIN 150 MG/ML 4 ML VIAL ONE (07:23)
[2020-10-17] MEDS ORDERED: MIDAZOLAM 2 MG/2 ML VIAL ONE (07:23)
[2020-10-17] MEDS ORDERED: LIDOCAINE 1% INJ 10MG/ML (20 ML MDV) ONE (07:23)
[2020-10-17] MEDS ORDERED: ePHEDrine SULFATE/0.9% NACL/PF 50 MG/5 ML SYRINGE IV ONE (07:23)
[2020-10-17] MEDS ORDERED: GLYCOPYRROLATE 0.2 MG/ML 2 ML VIAL ONE (07:23)
[2020-10-17] MEDS ORDERED: LACTATED RINGERS 1,000 ML IV ONE ×4 (07:25→10:14)
[2020-10-17] MEDS ORDERED: DEXAMETHASONE SOD PHOSPHATE 4 MG/ML 1 ML VIAL IVP ONE (07:27)
[2020-10-17] MEDS ORDERED: ONDANSETRON 4 MG/2 ML VIAL IVP ONE (07:27)
[2020-10-17] MEDS ORDERED: SODIUM CHLORIDE 0.9% 100 ML with CLINDAMYCIN 600 MG IV ONE ×2 (07:46)
[2020-10-17] MEDS ORDERED: SODIUM CHLORIDE 0.9% 1,000 ML IV ONE (09:15)
[2020-10-17] MEDS: INSULIN ASPART (NovoLOG) 100 UNIT/ML VIAL SQ SCH ×4 (10:12→20:47)
[2020-10-17 10:38] LABS: Glucose,Whole Blood 109 mg/dL (75-99)
[2020-10-17] MEDS ORDERED: HYDROmorphone 0.5 MG/0.5 ML SYRINGE IVP ONE ×2 (10:44→10:49)
[2020-10-17] MEDS ORDERED: diphenhydrAMINE 50 MG/ML 1 ML VIAL IVP ONE (11:00)
--- NOTE | 2020-10-17 11:22 | P.PN ---
Progress Note - Text Progress Note Date: 10/17/20 Patient off the floor for above the knee amputation during cardiology rounds Will re-evaluate patient tomorrow
--- NOTE | 2020-10-17 13:06 | P.OP ---
Date of Procedure: 10/17/20 Description of Procedure: Preoperative diagnosis: Left lower extremity non healing wounds, right ankle infection, Postoperative diagnosis: Same Procedure: Left4 Above-knee amputation Surgeon: Izabel Scruggs D.O. Anesthesia: [Gen. endotracheal] EBL: 600 cc IV fluids: see records for crystalloid, 1 unit of packed red blood cells Urine output: see records Drains: none Complications: none immediately apparent Condition: stable to recovery Operative indication and findings: [the patient is a 59-year-old male with non healing wounds as well as evidnce of a significant ankle infection. SHe has been seen in the wound care clinic with significant concern. She was previously taken to the OR for debridement of the owunds when a severe deep space abscess was identified in the ankle. She also has a very large wound encompassing the entire posterir calf making a below knee amputation unfeasible along with the fact she is non ambulatory, an above knee amputation was recommended. She has been monitored with refrence to her anemia and was transfused. She has rare antibodies making her a difficult crossmatch. Risks and benefits were discussed. She seemingly understood and was willing to proceed. Procedure in detail: The patient was taken to the operative suite and placed in supine position. After adequate anesthesia, the left lower extremity was prepped and draped in usual sterile fashion. A preprocedure timeout was performed, all parties were in agreement. Given her anemia, a tourniquet was placed and inflated. Skin marker was utilized and the incision was marked approximately 5 cm proximal to the knee joint. Skin incision was performed and deepened through the subcutaneous tissues to the muscular fascia. There was severe induration of all of the tissue with dignificant edema. The saphenous vein was identified and ligated with 2-0 silk and divided. The muscle groups of the anterior and medial thigh were divided with electrocautery at the same level of the skin incision. The neurovascular bundle was identified on the medial aspect of the thigh. The artery and veins were isolated and suture ligated using 2-0 silk ligature. The sciatic nerve was pulled on stretch and ligated with 2-0 silk tie and divided. The femur was then cleared of its periosteal tissue is elevated and the femur divided with the oscillating saw. The posterior thigh muscles were then divided with amputation knife. The proximal end of the transected femur was smoothed with a rasp. Bone wax was placed. The amputation site was then copiously irrigated. Hemostasis was controlled with electrocautery and suture ligation of 2-0 silk. The periosteum was reapproximated using interrupted sutures of 2-0 Vicryl. The fascia was reapproximated with interrupted [id number] sutures of 2-0 Vicryl. The skin was reapproximated with vertical mattress sutures of 2-0 nylon and johny. A dressing with gauze, Kerlix and a bandage were placed. The patient tolerated the procedure well and was transported to PACU in stable condition
[2020-10-17] MEDS: CEFEPIME 2 GM in SODIUM CHLORIDE 0.9% 100 ML IVPB SCH ×2 (13:19→20:47)
[2020-10-17] MEDS: carvediloL 12.5 MG TAB PO SCH ×2 (13:19→20:47)
[2020-10-17 13:35] LABS: Glucose,Whole Blood 170 mg/dL (75-99)
[2020-10-17] MEDS: SODIUM CHLORIDE 0.9% 1,000 ML IV SCH (13:39)
[2020-10-17 15:24] LABS: Anisocytosis Slight; Basophils % (A) 0 %; Eosinophils % (A) 0 %; HCT 27.7 % (34.0-46.0); HGB 8.6 gm/dL (11.4-16.0); Hypochromasia Marked; Lymphocytes # (A) 0.7 k/uL (1.0-4.8); Lymphocytes % (A) 6 %; MCH 26.3 pg (25.0-35.0); MCHC 30.8 g/dL (31.0-37.0); MCV 85.3 fL (80.0-100.0); Mean Platelet Volume 7.7; Monocytes # (A) 0.2 k/uL (0-1.0); Monocytes % (A) 2 %; Neutrophils # (A) 10.9 k/uL (1.3-7.7); Neutrophils % (A) 92 %; Platelet Count 263 k/uL (150-450); Poikilocytosis Moderate; RBC 3.25 m/uL (3.80-5.40); RDW 19.1 % (11.5-15.5); WBC 11.9 k/uL (3.8-10.6)
[2020-10-17 17:08] LABS: Glucose,Whole Blood 170 mg/dL (75-99)
[2020-10-17] MEDS: HYDROmorphone 0.5 MG/0.5 ML SYRINGE IVP PRN ×2 (18:40→22:51)
[2020-10-17 20:22] LABS: Glucose,Whole Blood 165 mg/dL (75-99)
[2020-10-17] MEDS: GABAPENTIN 300 MG CAP PO SCH (20:47)
[2020-10-17] MEDS: INSULIN DETEMIR (LEVEMIR) 100 UNIT/ML SYR SQ SCH (20:47)
--- NOTE | 2020-10-17 22:03 | P.PN ---
Progress Note - Text Progress Note Date: 10/17/20 Interval history: This is a patient with acute on chronic lower extremity leg wounds Patient p resents with worsening wounds with drainage and oozing. Infected -cellulitis. Cultures positive for Proteus mirabilis and patient on IV cefepime. Computed tomography scan of the lower extremity showed multiple areas of bone loss involving the tarsal bones, subcutaneous edema also some air bubbles around the tarsal metatarsal joints of the midfoot. Patient was transfused a unit of blood on October 11 and on October 12. Today-underwent left above-knee amputation. Postprocedure laying in bed. Tired. Review of systems: Was done for constitutional, cardiovascular, GI, pulmonary. relevant finding as above Active Medications Acetaminophen (Acetaminophen Tab 325 Mg Tab) 650 mg PO Q6HR PRN PRN Reason: Fever and/ or Pain Last Admin: 10/16/20 21:21 Dose: 650 mg Documented by: Carvedilol (Carvedilol 12.5 Mg Tab) 12.5 mg PO BID [facility] Last Admin: 10/17/20 20:47 Dose: 12.5 mg Documented by: Gabapentin (Gabapentin 300 Mg Cap) 300 mg PO [facility] Last Admin: 10/17/20 20:47 Dose: 300 mg Documented by: Hydromorphone HCl (Hydromorphone 0.5 Mg/0.5 Ml Syringe) 0.5 mg IVP Q3HR PRN PRN Reason: Pain Last Admin: 10/17/20 18:40 Dose: 0.5 mg Documented by: Sodium Chloride (Saline 0.9%) 1,000 mls @ 50 mls/hr IV .Q20H [facility] Last Admin: 10/17/20 13:39 Dose: 50 mls/hr Documented by: Lactated Ringer's (Lactated Ringers) 1,000 mls @ 20 mls/hr IV .Q24H [facility] Last Admin: 10/17/20 20:48 Dose: Not Given Documented by: Insulin Aspart (Insulin Aspart (Novolog) 100 Unit/Ml Vial) 0 unit SQ [facility]; Protocol Last Admin: 10/17/20 20:47 Dose: 2 unit Documented by: Insulin Detemir (Insulin Detemir (Levemir) 100 Unit/Ml Syr) 10 unit SQ [facility] Last Admin: 10/17/20 20:47 Dose: 10 unit Documented by: Naloxone HCl (Naloxone 0.4 Mg/Ml 1 Ml Vial) 0.2 mg IV Q2M PRN PRN Reason: Opioid Reversal Naloxone HCl (Naloxone 0.4 Mg/Ml 1 Ml Vial) 0.2 mg IV Q2M PRN PRN Reason: Opioid Reversal Ondansetron HCl (Ondansetron 4 Mg/2 Ml Vial) 4 mg IVP Q8HR PRN PRN Reason: Nausea And Vomiting Tramadol/Acetaminophen (Tramadol-Acetaminop 37.5-325mg 1 Each Tab) 1 each PO TID PRN PRN Reason: Pain Last Admin: 10/15/20 20:52 Dose: 1 each Documented by: On examination: VITAL SIGNS: 97.8, 77, 18, 122/59, 100% on 2 L GENERAL APPEARANCE: Sitting up, in bed , tired EYES: Pupils equal. Conjunctiva normal. NECK: JVD unable to assess,. Mass not palpable. RESPIRATORY: Respiratory effort increased. Diminished breath sounds. CARDIOVASCULAR: First and second sounds normal. Edema present. ABDOMEN: Soft. Liver and spleen not palpable. No tenderness. No mass palpable. PSYCHIATRY: Alert and oriented x3. Mood and affect normal. EXTREMITIES: Left above-knee amputation with dressing over the stump INVESTIGATIONS, reviewed in the clinical context: October 17: White count 11.9 hemoglobin 8.6 October 16: Hemoglobin 9.1 creatinine 1.04 October 15: White count 10.8 hemoglobin 7.7 White count 10.3 hemoglobin 7.8 platelets 309 Creatinine 1.5 2-D echocardiogram: Moderate concentric LVH. EF 45-50%. Moderate to severe tricuspid regurgitation. Severe pulmonary hypertension. Assessment: -Acute on chronic bilateral lower extremity wounds from venous stasis ulcers, with possible gas gangrene/acute osteomyelitis.-Followed by left above-knee amputation on October 17 -Chronic kidney disease stage III from diabetic nephropathy and nephrosclerosis -Morbid obesity BMI 54.9 -Diabetes mellitus type 2 chronically on insulin -GERD -Essential hypertension -Hyperlipidemia -Coronary artery disease with prior history of bypass -Diabetic peripheral neuropathy -Chronic low back pain from arthritis -Chronic medical debility patient is a walker or wheelchair -Secondary severe pulmonary hypertension -Moderate mitral and moderate to severe tricuspid regurgitation Plan: We will resume IV cefepime. Other medications to continue. Dilaudid as per general surgery. Discussed with the patient.
--- NOTE | 2020-10-17 22:47 | PN ---
PROGRESS NOTE DATE OF SERVICE: 10/17/2020 REASON FOR FOLLOWUP: 1. Gram-negative bacteremia. 2. Left leg infected venous stasis ulcer. INTERVAL HISTORY: Patient was taken to the OR in this patient who is status post left ehfdg-jgx-mgyk amputation. The patient is hemodynamically stable post surgery. Denies having any chest pain. No shortness of breath or cough. No nausea or vomiting, abdominal pain or diarrhea. PHYSICAL EXAMINATION: Blood pressure 122/59 with a pulse of 77. Temperature is 97.8. She is 100% on 2 L nasal cannula. General description is a middle-aged female lying in bed in no distress. Respiratory system: Unlabored breathing, clear to auscultation anteriorly. Heart S1, S2. Regular rate and rhythm. Abdomen soft, no tenderness. Left BKA stump is currently dressed. LABS: Hemoglobin 8.8, white count 11.9. DIAGNOSTIC IMPRESSION AND PLAN: Patient with Proteus mirabilis bacteremia, source left leg infected ulcer in this patient who is status post left vdnly-fuy-kmvv amputation with the infected part removed. Patient not need to be on long-term antibiotic therapy. Antibiotic adjusted to Rocephin 2 grams daily and we will monitor clinical course closely. MMODL / IJN: [id number] /
[2020-10-18] MEDS: HYDROmorphone 0.5 MG/0.5 ML SYRINGE IVP PRN ×5 (06:08→21:08)
[2020-10-18 06:18] LABS: Glucose,Whole Blood 157 mg/dL (75-99)
[2020-10-18] MEDS: INSULIN ASPART (NovoLOG) 100 UNIT/ML VIAL SQ SCH ×4 (06:39→21:06)
[2020-10-18] MEDS: carvediloL 12.5 MG TAB PO SCH ×2 (07:57→21:08)
[2020-10-18 08:27] LABS: Anisocytosis Slight; Basophils % (A) 0 %; Eosinophils # (A) 0.1 k/uL (0-0.7); Eosinophils % (A) 1 %; HCT 23.8 % (34.0-46.0); HGB 7.5 gm/dL (11.4-16.0); Hypochromasia Marked; Lymphocytes # (A) 1.3 k/uL (1.0-4.8); Lymphocytes % (A) 11 %; MCH 26.4 pg (25.0-35.0); MCHC 31.4 g/dL (31.0-37.0); MCV 84.1 fL (80.0-100.0); Microcytosis Slight; Monocytes # (A) 0.6 k/uL (0-1.0); Monocytes % (A) 5 %; Neutrophils # (A) 10.1 k/uL (1.3-7.7); Neutrophils % (A) 83 %; Platelet Count 291 k/uL (150-450); Poikilocytosis Moderate; RBC 2.82 m/uL (3.80-5.40); RDW 19.6 % (11.5-15.5); WBC 12.2 k/uL (3.8-10.6)
[2020-10-18 08:35] LABS: African American GFR (CKD) >90 (>60 ml/min/1.73 sqM); Anion Gap -1 mmol/L; Blood Urea Nitrogen 25 mg/dL (7-17); Calcium 7.5 mg/dL (8.4-10.2); Carbon Dioxide 27 mmol/L (22-30); Chloride 109 mmol/L (98-107); Glucose 88 mg/dL (74-99); Non-African American GFR(CKD) 80 (>60 ml/min/1.73 sqM); Potassium 4.3 mmol/L (3.5-5.1); Sodium 135 mmol/L (137-145)
[2020-10-18] MEDS ORDERED: CEFEPIME 1 GM in SODIUM CHLORIDE 0.9% 50 ML IVPB SCH (09:00)
--- NOTE | 2020-10-18 11:17 | P.PN ---
Subjective This is a pleasant 59-year-old female past medical history significant for coronary artery disease status post bypass grafting in 2014, diabetes mellitus, hypertension, dyslipidemia, chronic venous stasis with nonhealing lower extremity wounds. 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 She is to follow with Dr. Oglesby. She underwent left svujl-kjv-eubl amputation yesterday with Dr. Scruggs. She is seen and examined sitting up in bed in no acute distress. She denies symptoms of chest pain or shortness of breath. She has some discomfort at her surgical site. Blood pressure 107/53 heart rate 70 afebrile maintaining oxygen saturation on nasal cannula. Laboratory data reviewed, WBC 12.2, hemoglobin 7.5, platelets 291, sodium 135, potassium 4.3 and creatinine 0.81. Currently maintained on Coreg 12.5 mg twice a day. GENERAL: Well-appearing, well-nourished and in no acute distress. Morbidly obese. NECK: Supple without JVD or thyromegaly. LUNGS: Breath sounds clear to auscultation bilaterally. Respiration equal and unlabored. No wheezes, rales or rhonchi. Diminished bilaterally. HEART: Regular rate and rhythm with systolic ejection murmur at the base, no rubs or gallops. S1 and S2 heard. EXTREMITIES: Normal range of motion, no edema. No clubbing or cyanosis. Peripheral pulses intact. Left gosrl-opz-rhkx amputation with dressing in place. ASSESSMENT Left venous stasis ulcer with cellulitis and osteomyelitis Status post left dfhvr-sqc-xknd amputation Coronary artery disease status post bypass grafting in 2013 Chronic diastolic heart failure, clinically euvolemic Mitral regurgitation Tricuspid regurgitation Severe pulmonary hypertension Hypertension Dyslipidemia Diabetes mellitus Morbid obesity, BMI 54 PLAN Given coronary artery disease intervention was last in 2013 recommend discontinuation of Plavix and initiation of daily aspirin 81 mg and atorvastatin 80 mg daily. Blood pressure is currently well maintained on current dose of carvedilol. We'll continue to monitor renal function and blood pressure and initiate EULA inhibitor as tolerated down the line. Clinically stable from a cardiac perspective. Recommend follow-up with cardiology as an outpatient. Nurse Practitioner note has been reviewed, I agree with a documented findings and plan of care. Patient was seen and examined. Objective - Vital Signs Vital signs: Vital Signs Temp 96.6 F L 10/18/20 08:00 Pulse 70 10/18/20 08:00 Resp 18 10/18/20 08:00 BP 107/53 10/18/20 08:00 Pulse Ox 97 10/18/20 08:00 Intake & Output 10/17/20 10/18/20 10/18/20 18:59 06:59 18:59 Intake Total 3164 480 240 Output Total 800 425 Balance 2364 55 240 Weight 115 kg Intake: IV 2854 Oral 0 480 240 Blood Product 310 Rc As-1 Unit 310 [id number] Output: Urine 200 425 Estimated Blood Loss 600 Other: Voiding Method Indwelling Catheter Indwelling Catheter Indwelling Catheter - Labs CBC & Chem 7: 10/18/20 08:10 10/18/20 08:10 Labs: Abnormal Lab Results - Last 24 Hours (Table) 10/17/20 10/17/20 10/17/20 Range/Units 08:39 13:34 15:05 WBC 11.9 H (3.8-10.6) k/uL RBC 3.25 L (3.80-5.40) m/uL Hgb 8.6 L (11.4-16.0) gm/dL Hct 27.7 L (34.0-46.0) % MCHC 30.8 L (31.0-37.0) g/dL RDW 19.1 H (11.5-15.5) % Neutrophils # 10.9 H (1.3-7.7) k/uL Lymphocytes # 0.7 L (1.0-4.8) k/uL Sodium (137-145) mmol/L Chloride (98-107) mmol/L BUN (7-17) mg/dL POC Glucose (mg/dL) 170 H (75-99) mg/dL Calcium (8.4-10.2) mg/dL Crossmatch See Detail 10/17/20 10/17/20 10/18/20 Range/Units 16:48 20:14 06:11 WBC (3.8-10.6) k/uL RBC (3.80-5.40) m/uL Hgb (11.4-16.0) gm/dL Hct (34.0-46.0) % MCHC (31.0-37.0) g/dL RDW (11.5-15.5) % Neutrophils # (1.3-7.7) k/uL Lymphocytes # (1.0-4.8) k/uL Sodium (137-145) mmol/L Chloride (98-107) mmol/L BUN (7-17) mg/dL POC Glucose (mg/dL) 170 H 165 H 157 H (75-99) mg/dL Calcium (8.4-10.2) mg/dL Crossmatch 10/18/20 10/18/20 Range/Units 08:10 08:10 WBC 12.2 H (3.8-10.6) k/uL RBC 2.82 L (3.80-5.40) m/uL Hgb 7.5 L (11.4-16.0) gm/dL Hct 23.8 L (34.0-46.0) % MCHC (31.0-37.0) g/dL RDW 19.6 H (11.5-15.5) % Neutrophils # 10.1 H (1.3-7.7) k/uL Lymphocytes # (1.0-4.8) k/uL Sodium 135 L (137-145) mmol/L Chloride 109 H (98-107) mmol/L BUN 25 H (7-17) mg/dL POC Glucose (mg/dL) (75-99) mg/dL Calcium 7.5 L (8.4-10.2) mg/dL Crossmatch Microbiology - Last 24 Hours (Table) 10/11/20 06:15 Blood Culture - Final Blood No Growth after 144 hours
[2020-10-18] MEDS: ONDANSETRON 4 MG/2 ML VIAL IVP PRN ×2 (11:35→21:08)
[2020-10-18] MEDS: ASPIRIN 81 MG PO SCH (11:36)
[2020-10-18] MEDS: ATORVASTATIN 80 MG TAB PO SCH (11:36)
[2020-10-18 11:49] LABS: Glucose,Whole Blood 125 mg/dL (75-99)
--- NOTE | 2020-10-18 12:21 | P.PN ---
Subjective Progress Note Date: 10/18/20 Patient was seen and examined lying in bed. She is postop day #1 for a left jaywp-ztt-tgky amputation. She states overall she is doing well she does have some pain to the lower extremity at times with good relief from Dilaudid. Her Scruggs catheter remains intact. Today's WBC 12.2, hemoglobin 7.5, hematocrit 23.8, platelets 291. Objective - Vital Signs Vital signs: Vital Signs Temp 96.6 F L 10/18/20 08:00 Pulse 70 10/18/20 08:00 Resp 18 10/18/20 08:00 BP 107/53 10/18/20 08:00 Pulse Ox 97 10/18/20 08:00 Intake & Output 10/17/20 10/18/20 10/18/20 18:59 06:59 18:59 Intake Total 3164 480 240 Output Total 800 425 Balance 2364 55 240 Weight 115 kg Intake: IV 2854 Oral 0 480 240 Blood Product 310 Rc As-1 Unit 310 [id number] Output: Urine 200 425 Estimated Blood Loss 600 Other: Voiding Method Indwelling Catheter Indwelling Catheter Indwelling Catheter - Exam General appearance: The patient is alert, oriented, in no acute distress. HET: Head is normocephalic and atraumatic. Neck: Supple. Trachea midline. Extremities: Left hpgzg-hkp-iufb amputation stump with dressing clean dry and intact. Left lower extremity with dressing clean dry and intact with local wound care. Dressing changed, small amount of sanguinous drainage from the Ximena drain. [place] well approximated. Dressed with Adaptic, 4 x 4, Kerlix and Yusuf wrap. Neurological: No focal deficits. Strength and sensation are grossly intact. - Labs CBC & Chem 7: 10/18/20 08:10 10/18/20 08:10 Labs: Abnormal Lab Results - Last 24 Hours (Table) 10/17/20 10/17/20 10/17/20 Range/Units 08:39 10:36 13:34 WBC (3.8-10.6) k/uL RBC (3.80-5.40) m/uL Hgb (11.4-16.0) gm/dL Hct (34.0-46.0) % MCHC (31.0-37.0) g/dL RDW (11.5-15.5) % Neutrophils # (1.3-7.7) k/uL Lymphocytes # (1.0-4.8) k/uL Sodium (137-145) mmol/L Chloride (98-107) mmol/L BUN (7-17) mg/dL POC Glucose (mg/dL) 109 H 170 H (75-99) mg/dL Calcium (8.4-10.2) mg/dL Crossmatch See Detail 10/17/20 10/17/20 10/17/20 Range/Units 15:05 16:48 20:14 WBC 11.9 H (3.8-10.6) k/uL RBC 3.25 L (3.80-5.40) m/uL Hgb 8.6 L (11.4-16.0) gm/dL Hct 27.7 L (34.0-46.0) % MCHC 30.8 L (31.0-37.0) g/dL RDW 19.1 H (11.5-15.5) % Neutrophils # 10.9 H (1.3-7.7) k/uL Lymphocytes # 0.7 L (1.0-4.8) k/uL Sodium (137-145) mmol/L Chloride (98-107) mmol/L BUN (7-17) mg/dL POC Glucose (mg/dL) 170 H 165 H (75-99) mg/dL Calcium (8.4-10.2) mg/dL Crossmatch 10/18/20 10/18/20 10/18/20 Range/Units 06:11 08:10 08:10 WBC 12.2 H (3.8-10.6) k/uL RBC 2.82 L (3.80-5.40) m/uL Hgb 7.5 L (11.4-16.0) gm/dL Hct 23.8 L (34.0-46.0) % MCHC (31.0-37.0) g/dL RDW 19.6 H (11.5-15.5) % Neutrophils # 10.1 H (1.3-7.7) k/uL Lymphocytes # (1.0-4.8) k/uL Sodium 135 L (137-145) mmol/L Chloride 109 H (98-107) mmol/L BUN 25 H (7-17) mg/dL POC Glucose (mg/dL) 157 H (75-99) mg/dL Calcium 7.5 L (8.4-10.2) mg/dL Crossmatch Microbiology - Last 24 Hours (Table) 10/11/20 06:15 Blood Culture - Final Blood No Growth after 144 hours Assessment and Plan Assessment: 1. Postop day #1 for a left zshjb-aqc-xqnj amputation 2. Significant left lower extremity wounds 3. Left ankle infection 4. Bacteremia 5. Acute on chronic anemia Plan: 1. Consult to physical therapy 2. Consult to case management to reach out to Chandrakant Wong for stump automotive starter repairer and rigid dressing 3. Dressing change daily to left AKA stump 3. Repeat CBC, BMP in the morning The impression and plan of care has been dictated as directed. Dr. Brice I performed a history and examination of this patient, discussed the same with the dictator. I agree with the dictator's note ,documented as a scribe. Any additional findings or plans will be noted.
[2020-10-18] MEDS: SODIUM CHLORIDE 0.9% 1,000 ML IV SCH (13:48)
[2020-10-18 17:12] LABS: Glucose,Whole Blood 209 mg/dL (75-99)
[2020-10-18] MEDS: ACETAMINOPHEN TAB 325 MG TAB PO PRN (17:14)
[2020-10-18 20:03] LABS: Glucose,Whole Blood 125 mg/dL (75-99)
[2020-10-18] MEDS: INSULIN DETEMIR (LEVEMIR) 100 UNIT/ML SYR SQ SCH (21:08)
[2020-10-18] MEDS: GABAPENTIN 300 MG CAP PO SCH (21:08)
[2020-10-18] MEDS: LACTATED RINGERS 1,000 ML IV SCH (21:09)
--- NOTE | 2020-10-18 22:07 | P.PN ---
Progress Note - Text Progress Note Date: 10/18/20 Interval history: This is a patient with acute on chronic lower extremity leg wounds Patient p resents with worsening wounds with drainage and oozing. Infected -cellulitis. Cultures positive for Proteus mirabilis and patient on IV cefepime. Computed tomography scan of the lower extremity showed multiple areas of bone loss involving the tarsal bones, subcutaneous edema also some air bubbles around the tarsal metatarsal joints of the midfoot. Patient was transfused a unit of blood on October 11 and on October 12. October 17-left above-knee amputation. Today-laying in bed. Oral intake fair. Pain is recently well controlled. No new issues. Review of systems: Was done for constitutional, cardiovascular, GI, pulmonary. relevant finding as above Active Medications Acetaminophen (Acetaminophen Tab 325 Mg Tab) 650 mg PO Q6HR PRN PRN Reason: Fever and/ or Pain Last Admin: 10/18/20 17:14 Dose: 650 mg Documented by: Aspirin (Aspirin 81 Mg) 81 mg PO DAILY [facility] Last Admin: 10/18/20 11:36 Dose: 81 mg Documented by: Atorvastatin Calcium (Atorvastatin 80 Mg Tab) 80 mg PO DAILY [facility] Last Admin: 10/18/20 11:36 Dose: 80 mg Documented by: Carvedilol (Carvedilol 12.5 Mg Tab) 12.5 mg PO BID [facility] Last Admin: 10/18/20 21:08 Dose: 12.5 mg Documented by: Gabapentin (Gabapentin 300 Mg Cap) 300 mg PO HS [facility] Last Admin: 10/18/20 21:08 Dose: 300 mg Documented by: Hydromorphone HCl (Hydromorphone 0.5 Mg/0.5 Ml Syringe) 0.5 mg IVP Q3HR PRN PRN Reason: Pain Last Admin: 10/18/20 21:08 Dose: 0.5 mg Documented by: Sodium Chloride (Saline 0.9%) 1,000 mls @ 50 mls/hr IV .Q20H [facility] Last Admin: 10/18/20 13:48 Dose: 50 mls/hr Documented by: Lactated Ringer's (Lactated Ringers) 1,000 mls @ 20 mls/hr IV .Q24H [facility] Last Admin: 10/18/20 21:09 Dose: Not Given Documented by: Ceftriaxone Sodium 2 gm/ (Sodium Chloride) 50 mls @ 100 mls/hr IVPB Q24HR [facility] Last Admin: 10/18/20 07:57 Dose: 100 mls/hr Documented by: Insulin Aspart (Insulin Aspart (Novolog) 100 Unit/Ml Vial) 0 unit SQ ACHS [facility]; Protocol Last Admin: 10/18/20 21:06 Dose: Not Given Documented by: Insulin Detemir (Insulin Detemir (Levemir) 100 Unit/Ml Syr) 10 unit SQ HS [facility] Last Admin: 10/18/20 21:08 Dose: 10 unit Documented by: Naloxone HCl (Naloxone 0.4 Mg/Ml 1 Ml Vial) 0.2 mg IV Q2M PRN PRN Reason: Opioid Reversal Naloxone HCl (Naloxone 0.4 Mg/Ml 1 Ml Vial) 0.2 mg IV Q2M PRN PRN Reason: Opioid Reversal Ondansetron HCl (Ondansetron 4 Mg/2 Ml Vial) 4 mg IVP Q8HR PRN PRN Reason: Nausea And Vomiting Last Admin: 10/18/20 21:08 Dose: 4 mg Documented by: Tramadol/Acetaminophen (Tramadol-Acetaminop 37.5-325mg 1 Each Tab) 1 each PO TID PRN PRN Reason: Pain Last Admin: 10/15/20 20:52 Dose: 1 each Documented by: On examination: VITAL SIGNS: 96.6, 70, 18, 107/53, 97% on 2 L GENERAL APPEARANCE: Sitting up, in bed more comfortable EYES: Pupils equal. Conjunctiva normal. NECK: JVD unable to assess,. Mass not palpable. RESPIRATORY: Respiratory effort increased. Diminished breath sounds. CARDIOVASCULAR: First and second sounds normal. Edema present. ABDOMEN: Soft. Liver and spleen not palpable. No tenderness. No mass palpable. PSYCHIATRY: Alert and oriented x3. Mood and affect normal. EXTREMITIES: Left above-knee amputation with dressing over the stump INVESTIGATIONS, reviewed in the clinical context: October 18: White count 12.2 hemoglobin 7.5 potassium 4.3 creatinine 0.81 October 17: White count 11.9 hemoglobin 8.6 October 6: Hemoglobin 9.1 creatinine 1.04 October 15: White count 10.8 hemoglobin 7.7 White count 10.3 hemoglobin 7.8 platelets 309 Creatinine 1.5 2-D echocardiogram: Moderate concentric LVH. EF 45-50%. Moderate to severe tricuspid regurgitation. Severe pulmonary hypertension. Blood culture-Proteus mirabilis Wound culture-Proteus mirabilis Assessment: -Acute on chronic bilateral lower extremity wounds from venous stasis ulcers, with possible gas gangrene/acute osteomyelitis.-Followed by left above-knee amputation on October 17 -Sepsis with blood and wound culture both growing Proteus mirabilis -Chronic kidney disease stage III from diabetic nephropathy and nephrosclerosis -Morbid obesity BMI 54.9 -Diabetes mellitus type 2 chronically on insulin -GERD -Essential hypertension -Hyperlipidemia -Coronary artery disease with prior history of bypass -Diabetic peripheral neuropathy -Chronic low back pain from arthritis -Chronic medical debility patient is a walker or wheelchair -Secondary severe pulmonary hypertension -Moderate mitral and moderate to severe tricuspid regurgitation Plan: Patient be changed over to IV ceftriaxone. IV fluids. Pain control. Other medications to continue. Wound care per Dr. Scruggs. Discussed with the patient. We will change the patient to metformin starting tomorrow morning DC Avel.
--- NOTE | 2020-10-18 22:32 | PN ---
PROGRESS NOTE DATE OF SERVICE: 10/18/2020 REASON FOR FOLLOW UP: Proteus mirabilis bacteremia secondary to infected left leg. INTERVAL HISTORY: The patient is currently afebrile. The patient is breathing comfortably. Denies having any chest pain or shortness of breath. No cough. No abdominal pain of any pain to the left BK stump. PHYSICAL EXAMINATION: Blood pressure is 111/53 with a pulse of 73, temperature 98. She is 98% on room air. General description: The patient is a middle-aged female lying in bed in no distress. Respiratory system: Unlabored breathing. Clear to auscultation anteriorly. Heart S1, S2. Regular rate. ABDOMEN: Soft. No tenderness. LABS: Hemoglobin 7.5, white count 12.2, BUN of 25, creatinine 0.81. DIAGNOSTIC IMPRESSION AND PLAN: Patient with Proteus mirabilis bacteremia secondary to infected left leg venous stasis ulcer, concern for deep infection, status post left faobd-qsd-foun amputation with infected part removed. Patient will not need to be on long-term antibiotic therapy. Currently on Rocephin 2 grams daily to continue and monitor clinical course closely. MMODL / IJN: [id number] /
[2020-10-19 06:17] LABS: Glucose,Whole Blood 95 mg/dL (75-99)
[2020-10-19] MEDS: INSULIN ASPART (NovoLOG) 100 UNIT/ML VIAL SQ SCH ×4 (06:25→21:37)
[2020-10-19] MEDS: metFORMIN 850 MG TAB PO SCH ×2 (06:31→17:27)
[2020-10-19] MEDS: SODIUM CHLORIDE 0.9% 1,000 ML IV SCH (06:31)
[2020-10-19 07:59] LABS: Anisocytosis Moderate; Basophils % (A) 1 %; Calcium 7.6 mg/dL (8.4-10.2); Eosinophils # (A) 0.3 k/uL (0-0.7); Eosinophils % (A) 3 %; HCT 23.9 % (34.0-46.0); HGB 7.1 gm/dL (11.4-16.0); Hypochromasia Marked; Lymphocytes # (A) 1.2 k/uL (1.0-4.8); Lymphocytes % (A) 12 %; MCH 25.9 pg (25.0-35.0); MCHC 29.6 g/dL (31.0-37.0); MCV 87.2 fL (80.0-100.0); Mean Platelet Volume 7.1; Monocytes # (A) 0.4 k/uL (0-1.0); Monocytes % (A) 4 %; Neutrophils # (A) 7.6 k/uL (1.3-7.7); Neutrophils % (A) 79 %; Platelet Count 252 k/uL (150-450); Poikilocytosis Moderate; Potassium 4.4 mmol/L (3.5-5.1); RBC 2.73 m/uL (3.80-5.40); RDW 20.3 % (11.5-15.5); WBC 9.7 k/uL (3.8-10.6)
[2020-10-19] MEDS: ASPIRIN 81 MG PO SCH (09:33)
[2020-10-19] MEDS: ATORVASTATIN 80 MG TAB PO SCH (09:33)
[2020-10-19] MEDS: carvediloL 12.5 MG TAB PO SCH ×2 (09:33→21:37)
[2020-10-19] MEDS: HYDROmorphone 0.5 MG/0.5 ML SYRINGE IVP PRN ×2 (09:39→21:38)
--- NOTE | 2020-10-19 10:50 | P.PN ---
Subjective Progress Note Date: 10/19/20 Is a pleasant 59-year-old female with a past medical history significant for CAD status post bypass grafting in 2014, diabetes mellitus, hypertension, dyslipidemia, chronic venous stasis with nonhealing lower extremity wounds. 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 Oglesby. She underwent left vuxvy-gcu-ouqy amputation on the seventh with Dr. Scruggs. She is seen and examined sitting up in bed in no acute distress. She denies any symptoms of chest discomfort, palpitations, shortness of breath, orthopnea or PND. He r eturned at each shows hemoglobin 7.1, sodium 136, potassium 4.4, BUN 26 and creatinine 0.98. He continues on aspirin 81 mg by mouth daily, Lipitor 80 mg by mouth daily, carvedilol 12.5 mg by mouth twice a day, insulin, metformin, gabapentin. Objective - Vital Signs Vital signs: Vital Signs Temp 98 F 10/18/20 15:01 Pulse 60 10/19/20 03:22 Resp 18 10/19/20 03:22 BP 113/58 10/19/20 03:22 Pulse Ox 100 10/19/20 03:22 Intake & Output 10/18/20 10/19/20 10/19/20 18:59 06:59 18:59 Intake Total 930 600 Output Total 180 250 500 Balance 750 -250 100 Weight 115.5 kg Intake: IV 400 Sodium Chloride 0.9% 1, 400 000 ml @ 50 mls/hr IV . Q20H [facility] Rx#:[id number] Intake, IV Titration 50 Amount cefTRIAXone 2 gm In 50 Sodium Chloride 0.9% 50 ml @ 100 mls/hr IVPB Q24HR [facility] Rx#:[id number] Oral 480 600 Output: Urine 180 250 500 Uretheral (Scruggs) 180 Other: Voiding Method Indwelling Catheter Indwelling Catheter - Exam PHYSICAL EXAMINATION: HEENT: Head is atraumatic, normocephalic. Pupils equal, round. Neck is supple. There is no elevated jugular venous pressure. HEART EXAMINATION: Heart sounds regular, S1 and S2 with a systolic murmur. CHEST EXAMINATION: Lungs are clear to auscultation. No chest wall tenderness is noted on palpation or with deep breathing. ABDOMEN: Soft, obese, nontender. Bowel sounds are heard. No organomegaly noted. EXTREMITIES: Left zterv-ywe-lgug amputation with dressing in place. No edema noted. NEUROLOGIC patient is awake, alert and oriented x3. . - Labs CBC & Chem 7: 10/19/20 06:45 10/19/20 06:45 Labs: Abnormal Lab Results - Last 24 Hours (Table) 10/18/20 10/18/20 10/18/20 Range/Units 11:35 17:04 19:57 RBC (3.80-5.40) m/uL Hgb (11.4-16.0) gm/dL Hct (34.0-46.0) % MCHC (31.0-37.0) g/dL RDW (11.5-15.5) % Sodium (137-145) mmol/L Chloride (98-107) mmol/L BUN (7-17) mg/dL POC Glucose (mg/dL) 125 H 209 H 125 H (75-99) mg/dL Calcium (8.4-10.2) mg/dL 10/19/20 10/19/20 Range/Units 06:45 06:45 RBC 2.73 L (3.80-5.40) m/uL Hgb 7.1 L (11.4-16.0) gm/dL Hct 23.9 L (34.0-46.0) % MCHC 29.6 L (31.0-37.0) g/dL RDW 20.3 H (11.5-15.5) % Sodium 136 L (137-145) mmol/L Chloride 109 H (98-107) mmol/L BUN 26 H (7-17) mg/dL POC Glucose (mg/dL) (75-99) mg/dL Calcium 7.6 L (8.4-10.2) mg/dL Assessment and Plan Assessment: Left venous stasis ulcer with cellulitis and osteomyelitis Status post left umiqh-zdk-zojw amputation Coronary artery disease status post bypass grafting in 2013 Chronic diastolic heart failure, clinically euvolemic Mitral regurgitation Tricuspid regurgitation Severe pulmonary hypertension Hypertension Dyslipidemia Diabetes mellitus Morbid obesity, BMI 54 Plan: From cardiology's perspective medications were reviewed and we will continue the same. At this time we will follow the patient on an as-needed basis. Please do not hesitate to contact us with questions. CRAFT COORDINATOR note has been reviewed, I agree with a documented findings and plan of care. Patient was seen and examined.
[2020-10-19 11:31] LABS: Glucose,Whole Blood 145 mg/dL (75-99)
[2020-10-19] MEDS: traMADol-ACETAMINOP 37.5-325MG 1 EACH TAB PO PRN (14:24)
[2020-10-19 16:28] LABS: Glucose,Whole Blood 157 mg/dL (75-99)
--- NOTE | 2020-10-19 16:55 | PN ---
PROGRESS NOTE DATE OF SERVICE: 10/19/2020 REASON FOR FOLLOWUP: Proteus mirabilis bacteremia left lower extremity infected ulcer. INTERVAL HISTORY: The patient is currently afebrile. The patient is breathing comfortably. The patient denies having any chest pain or shortness of breath or cough. No abdominal pain or diarrhea. PHYSICAL EXAMINATION: Blood pressure 115/56, pulse of 77, temperature 98.1. She is 96% on room air. General description is a middle-aged female lying in bed in no distress. RESPIRATORY SYSTEM: Unlabored breathing. Clear to auscultation anteriorly. HEART: S1, S2. Regular rate and rhythm. ABDOMEN: Soft. No tenderness. Left AK amputation site is currently dressed. No drainage on the dressing. LABS: Hemoglobin 7.1, white count 9.7, BUN of 26, creatinine 0.98. DIAGNOSTIC IMPRESSION AND PLAN: Patient with Proteus mirabilis bacteremia with infected left lower extremity ulcer and concern for possible osteomyelitis. Patient is status post left above-knee amputation with infected part removed. The patient is currently covered with Rocephin; to continue. Monitor clinical course closely. MMODL / IJN: [id number] /
[2020-10-19 21:04] LABS: Glucose,Whole Blood 167 mg/dL (75-99)
[2020-10-19] MEDS: GABAPENTIN 300 MG CAP PO SCH (21:37)
[2020-10-19] MEDS: ONDANSETRON 4 MG/2 ML VIAL IVP PRN (21:38)
--- NOTE | 2020-10-19 22:41 | P.PN ---
Progress Note - Text Progress Note Date: 10/19/20 Interval history: This is a patient with acute on chronic lower extremity leg wounds Patient p resents with worsening wounds with drainage and oozing. Infected -cellulitis. Cultures positive for Proteus mirabilis and patient on IV cefepime. Computed tomography scan of the lower extremity showed multiple areas of bone loss involving the tarsal bones, subcutaneous edema also some air bubbles around the tarsal metatarsal joints of the midfoot. Patient was transfused a unit of blood on October 11 and on October 12. October 17-left above-knee amputation. Today-in bed. Comfortable. Oral intake is good. Pain control. Review of systems: Was done for constitutional, cardiovascular, GI, pulmonary. relevant finding as above Active Medications Acetaminophen (Acetaminophen Tab 325 Mg Tab) 650 mg PO Q6HR PRN PRN Reason: Fever and/ or Pain Last Admin: 10/18/20 17:14 Dose: 650 mg Documented by: Aspirin (Aspirin 81 Mg) 81 mg PO DAILY [facility] Last Admin: 10/19/20 09:33 Dose: 81 mg Documented by: Atorvastatin Calcium (Atorvastatin 80 Mg Tab) 80 mg PO DAILY [facility] Last Admin: 10/19/20 09:33 Dose: 80 mg Documented by: Carvedilol (Carvedilol 12.5 Mg Tab) 12.5 mg PO BID [facility] Last Admin: 10/19/20 21:37 Dose: 12.5 mg Documented by: Gabapentin (Gabapentin 300 Mg Cap) 300 mg PO HS [facility] Last Admin: 10/19/20 21:37 Dose: 300 mg Documented by: Hydromorphone HCl (Hydromorphone 0.5 Mg/0.5 Ml Syringe) 0.5 mg IVP Q3HR PRN PRN Reason: Pain Last Admin: 10/19/20 21:38 Dose: 0.5 mg Documented by: Sodium Chloride (Saline 0.9%) 1,000 mls @ 50 mls/hr IV .Q20H [facility] Last Admin: 10/19/20 06:31 Dose: 50 mls/hr Documented by: Lactated Ringer's (Lactated Ringers) 1,000 mls @ 20 mls/hr IV .Q24H [facility] Last Admin: 10/18/20 21:09 Dose: Not Given Documented by: Ceftriaxone Sodium 2 gm/ (Sodium Chloride) 50 mls @ 100 mls/hr IVPB Q24HR [facility] Last Admin: 10/19/20 09:33 Dose: 100 mls/hr Documented by: Insulin Aspart (Insulin Aspart (Novolog) 100 Unit/Ml Vial) 0 unit SQ ACHS [facility]; Protocol Last Admin: 10/19/20 21:37 Dose: 2 unit Documented by: Metformin HCl (Metformin 850 Mg Tab) 850 mg PO AC-BID [facility] Last Admin: 10/19/20 17:27 Dose: 850 mg Documented by: Naloxone HCl (Naloxone 0.4 Mg/Ml 1 Ml Vial) 0.2 mg IV Q2M PRN PRN Reason: Opioid Reversal Naloxone HCl (Naloxone 0.4 Mg/Ml 1 Ml Vial) 0.2 mg IV Q2M PRN PRN Reason: Opioid Reversal Ondansetron HCl (Ondansetron 4 Mg/2 Ml Vial) 4 mg IVP Q8HR PRN PRN Reason: Nausea And Vomiting Last Admin: 10/19/20 21:38 Dose: 4 mg Documented by: Tramadol/Acetaminophen (Tramadol-Acetaminop 37.5-325mg 1 Each Tab) 1 each PO TID PRN PRN Reason: Pain Last Admin: 10/19/20 14:24 Dose: 1 each Documented by: On examination: VITAL SIGNS: 98, 78, 16, 115/67, 95% room air GENERAL APPEARANCE: Reclining in bed, comfortable EYES: Pupils equal. Conjunctiva normal. NECK: JVD unable to assess,. Mass not palpable. RESPIRATORY: Respiratory effort increased. Diminished breath sounds. CARDIOVASCULAR: First and second sounds normal. Edema present. ABDOMEN: Soft. Liver and spleen not palpable. No tenderness. No mass palpable. PSYCHIATRY: Alert and oriented x3. Mood and affect normal. EXTREMITIES: Left above-knee amputation with dressing over the stump INVESTIGATIONS, reviewed in the clinical context: October 19: White count 9.7 hemoglobin 7.1 October 18: White count 12.2 hemoglobin 7.5 potassium 4.3 creatinine 0.81 October 17: White count 11.9 hemoglobin 8.6 October 16: Hemoglobin 9.1 creatinine 1.04 October 15: White count 10.8 hemoglobin 7.7 White count 10.3 hemoglobin 7.8 platelets 309 Creatinine 1.5 2-D echocardiogram: Moderate concentric LVH. EF 45-50%. Moderate to severe tr icuspid regurgitation. Severe pulmonary hypertension. Blood culture-Proteus mirabilis Wound culture-Proteus mirabilis Assessment: -Acute on chronic bilateral lower extremity wounds from venous stasis ulcers, with possible gas gangrene/acute osteomyelitis.-Followed by left above-knee amputation on October 17 -Sepsis with blood and wound culture both growing Proteus mirabilis -Chronic kidney disease stage III from diabetic nephropathy and nephrosclerosis -Morbid obesity BMI 54.9 -Diabetes mellitus type 2 changed over to metformin -GERD -Essential hypertension -Hyperlipidemia -Coronary artery disease with prior history of bypass -Diabetic peripheral neuropathy -Chronic low back pain from arthritis -Chronic medical debility patient is a walker or wheelchair -Secondary severe pulmonary hypertension -Moderate mitral and moderate to severe tricuspid regurgitation -Acute postprocedure blood loss anemia expected from surgery Plan: IV ceftriaxone. IV fluids. Pain control. Other medications to continue. Wound care per Dr. Scruggs. Follow Accu-Cheks
[2020-10-20] MEDS: LACTATED RINGERS 1,000 ML IV SCH ×2 (00:10→21:39)
[2020-10-20] MEDS: SODIUM CHLORIDE 0.9% 1,000 ML IV SCH ×2 (03:51→21:43)
[2020-10-20 06:30] LABS: Glucose,Whole Blood 169 mg/dL (75-99)
[2020-10-20] MEDS: metFORMIN 850 MG TAB PO SCH ×2 (06:54→17:13)
[2020-10-20] MEDS: INSULIN ASPART (NovoLOG) 100 UNIT/ML VIAL SQ SCH ×4 (06:54→21:42)
[2020-10-20 07:52] LABS: Anisocytosis Moderate; Basophils % (A) 0 %; Eosinophils # (A) 0.2 k/uL (0-0.7); Eosinophils % (A) 2 %; HCT 21.8 % (34.0-46.0); Hypochromasia Marked; Lymphocytes # (A) 1.1 k/uL (1.0-4.8); Lymphocytes % (A) 14 %; MCH 26.2 pg (25.0-35.0); MCHC 30.1 g/dL (31.0-37.0); MCV 86.9 fL (80.0-100.0); Mean Platelet Volume 7.1; Monocytes # (A) 0.3 k/uL (0-1.0); Monocytes % (A) 4 %; Neutrophils # (A) 6.2 k/uL (1.3-7.7); Neutrophils % (A) 78 %; Platelet Count 221 k/uL (150-450); Poikilocytosis Slight; RBC 2.51 m/uL (3.80-5.40); RDW 20.6 % (11.5-15.5)
[2020-10-20 08:11] LABS: HGB 6.6 gm/dL (11.4-16.0)
[2020-10-20] MEDS: carvediloL 12.5 MG TAB PO SCH ×2 (09:08→21:42)
[2020-10-20] MEDS: ATORVASTATIN 80 MG TAB PO SCH (09:08)
[2020-10-20] MEDS: ASPIRIN 81 MG PO SCH (09:08)
[2020-10-20] MEDS: HYDROmorphone 0.5 MG/0.5 ML SYRINGE IVP PRN ×2 (09:15→21:54)
[2020-10-20 11:47] LABS: Glucose,Whole Blood 176 mg/dL (75-99)
--- NOTE | 2020-10-20 12:42 | P.PN ---
Subjective Progress Note Date: 10/20/20 Patient is evaluated today postop day #3 left AKA. The patient voices no complaints other than as anticipated postoperative discomfort. Physical examination revealed the stump internet marketing intern to be intact. The patient did not wish this to be removed secondary to anticipated discomfort. He was discussed that this will need to be removed prior to her transfer to rehab, most likely tomorrow. Patient's hemoglobin is 6.6 and is to be transfused 1 unit packed. Hemoglobin and hematocrit is to be obtained after transfusion. Patient surgically stable at present. Objective - Vital Signs Vital signs: Vital Signs Temp 98.0 F 10/20/20 08:00 Pulse 88 10/20/20 08:00 Resp 16 10/20/20 08:00 BP 116/57 10/20/20 08:00 Pulse Ox 95 10/20/20 08:00 Intake & Output 10/19/20 10/20/20 10/20/20 18:59 06:59 18:59 Intake Total 960 720 Output Total 700 200 Balance 260 -200 720 Weight 115 kg Intake: Oral 960 720 Output: Urine 700 200 Other: Voiding Method Indwelling Catheter Indwelling Catheter Indwelling Catheter # Voids 3 # Bowel Movements 0 - Labs CBC & Chem 7: 10/20/20 07:04 10/19/20 06:45 Labs: Abnormal Lab Results - Last 24 Hours (Table) 10/19/20 10/19/20 10/20/20 Range/Units 16:27 20:53 06:19 RBC (3.80-5.40) m/uL Hgb (11.4-16.0) gm/dL Hct (34.0-46.0) % MCHC (31.0-37.0) g/dL RDW (11.5-15.5) % POC Glucose (mg/dL) 157 H 167 H 169 H (75-99) mg/dL Crossmatch 10/20/20 10/20/20 10/20/20 Range/Units 07:04 07:04 11:45 RBC 2.51 L (3.80-5.40) m/uL Hgb 6.6 L* (11.4-16.0) gm/dL Hct 21.8 L (34.0-46.0) % MCHC 30.1 L (31.0-37.0) g/dL RDW 20.6 H (11.5-15.5) % POC Glucose (mg/dL) 176 H (75-99) mg/dL Crossmatch See Detail
[2020-10-20 16:08] LABS: Glucose,Whole Blood 174 mg/dL (75-99)
[2020-10-20 19:14] LABS: Anisocytosis Slight; HGB 7.4 gm/dL (11.4-16.0); Hypochromasia Marked; MCH 26.6 pg (25.0-35.0); MCHC 30.7 g/dL (31.0-37.0); MCV 86.6 fL (80.0-100.0); Mean Platelet Volume 7.6; Platelet Count 212 k/uL (150-450); Poikilocytosis Moderate; RBC 2.77 m/uL (3.80-5.40); RDW 19.9 % (11.5-15.5); WBC 10.1 k/uL (3.8-10.6)
[2020-10-20 20:15] LABS: Glucose,Whole Blood 136 mg/dL (75-99)
--- NOTE | 2020-10-20 20:22 | PN ---
PROGRESS NOTE REASON FOR FOLLOWUP: Proteus mirabilis bacteremia and left leg infected wound. INTERVAL HISTORY: The patient is currently afebrile. The patient is breathing comfortably. Denies having any chest pain or shortness of breath or cough. No nausea. No vomiting. No abdominal pain. Pain to the left AK stump is currently controlled. PHYSICAL EXAMINATION: Blood pressure 120/58 with a pulse of 80, temperature 98.1. She is 95% on room air. General description is a middle-aged female lying in bed in no distress. RESPIRATORY SYSTEM: Unlabored breathing. Clear to auscultation anteriorly. HEART: S1, S2. Regular rate and rhythm. ABDOMEN: Soft. No tenderness. Left AK stump is currently dressed. LABS: Hemoglobin 7.4, white count 10.1. DIAGNOSTIC IMPRESSION AND PLAN: Patient with Proteus mirabilis bacteremia secondary to infected left leg wound, status post left above-knee amputation. Patient is covered with Rocephin 2 grams daily; to continue. Monitor clinical course closely. MMODL / IJN: [id number] /
[2020-10-20] MEDS: traMADol-ACETAMINOP 37.5-325MG 1 EACH TAB PO PRN (21:42)
[2020-10-20] MEDS: GABAPENTIN 300 MG CAP PO SCH (21:42)
[2020-10-20] MEDS: ACETAMINOPHEN TAB 325 MG TAB PO PRN (21:42)
[2020-10-20] MEDS: ONDANSETRON 4 MG/2 ML VIAL IVP PRN (21:54)
--- NOTE | 2020-10-20 22:09 | P.PN ---
Progress Note - Text Progress Note Date: 10/20/20 Interval history: This is a patient with acute on chronic lower extremity leg wounds Patient p resents with worsening wounds with drainage and oozing. Infected -cellulitis. Cultures positive for Proteus mirabilis and patient on IV cefepime. Computed tomography scan of the lower extremity showed multiple areas of bone loss involving the tarsal bones, subcutaneous edema also some air bubbles around the tarsal metatarsal joints of the midfoot. Patient was transfused a unit of blood on October 11 and on October 12. October 17-left above-knee amputation. Today-comfortable. Tolerating oral diet. Pain control. Review of systems: Was done for constitutional, cardiovascular, GI, pulmonary. r elevant finding as above Active Medications Acetaminophen (Acetaminophen Tab 325 Mg Tab) 650 mg PO Q6HR PRN PRN Reason: Fever and/ or Pain Last Admin: 10/20/20 21:42 Dose: 650 mg Documented by: Aspirin (Aspirin 81 Mg) 81 mg PO DAILY [facility] Last Admin: 10/20/20 09:08 Dose: 81 mg Documented by: Atorvastatin Calcium (Atorvastatin 80 Mg Tab) 80 mg PO DAILY [facility] Last Admin: 10/20/20 09:08 Dose: 80 mg Documented by: Carvedilol (Carvedilol 12.5 Mg Tab) 12.5 mg PO BID [facility] Last Admin: 10/20/20 21:42 Dose: 12.5 mg Documented by: Gabapentin (Gabapentin 300 Mg Cap) 300 mg PO HS [facility] Last Admin: 10/20/20 21:42 Dose: 300 mg Documented by: Hydromorphone HCl (Hydromorphone 0.5 Mg/0.5 Ml Syringe) 0.5 mg IVP Q3HR PRN PRN Reason: Pain Last Admin: 10/20/20 21:54 Dose: 0.5 mg Documented by: Sodium Chloride (Saline 0.9%) 1,000 mls @ 50 mls/hr IV .Q20H [facility] Last Admin: 10/20/20 21:43 Dose: 50 mls/hr Documented by: Lactated Ringer's (Lactated Ringers) 1,000 mls @ 20 mls/hr IV .Q24H [facility] Last Admin: 10/20/20 21:39 Dose: Not Given Documented by: Ceftriaxone Sodium 2 gm/ (Sodium Chloride) 50 mls @ 100 mls/hr IVPB Q24HR [facility] Last Admin: 10/20/20 09:08 Dose: 100 mls/hr Documented by: Insulin Aspart (Insulin Aspart (Novolog) 100 Unit/Ml Vial) 0 unit SQ ACHS [facility]; Protocol Last Admin: 10/20/20 21:42 Dose: 1 unit Documented by: Metformin HCl (Metformin 850 Mg Tab) 850 mg PO AC-BID [facility] Last Admin: 10/20/20 17:13 Dose: 850 mg Documented by: Naloxone HCl (Naloxone 0.4 Mg/Ml 1 Ml Vial) 0.2 mg IV Q2M PRN PRN Reason: Opioid Reversal Naloxone HCl (Naloxone 0.4 Mg/Ml 1 Ml Vial) 0.2 mg IV Q2M PRN PRN Reason: Opioid Reversal Ondansetron HCl (Ondansetron 4 Mg/2 Ml Vial) 4 mg IVP Q8HR PRN PRN Reason: Nausea And Vomiting Last Admin: 10/20/20 21:54 Dose: 4 mg Documented by: Tramadol/Acetaminophen (Tramadol-Acetaminop 37.5-325mg 1 Each Tab) 1 each PO TID PRN PRN Reason: Pain Last Admin: 10/20/20 21:42 Dose: 1 each Documented by: On examination: VITAL SIGNS: 98, 88, 14, 120/58, 95% room air GENERAL APPEARANCE: Laying in bed, comfortable EYES: Pupils equal. Conjunctiva normal. NECK: JVD unable to assess,. Mass not palpable. RESPIRATORY: Respiratory effort increased. Diminished breath sounds. CARDIOVASCULAR: First and second sounds normal. Edema present. ABDOMEN: Soft. Liver and spleen not palpable. No tenderness. No mass palpable. PSYCHIATRY: Alert and oriented x3. Mood and affect normal. EXTREMITIES: Left above-knee amputation with dressing over the stump INVESTIGATIONS, reviewed in the clinical context: October 20: Hemoglobin 6.6 October 9: White count 9.7 hemoglobin 7.1 October 18: White count 12.2 hemoglobin 7.5 potassium 4.3 creatinine 0.81 October 17: White count 11.9 hemoglobin 8.6 October 6: Hemoglobin 9.1 creatinine 1.04 October 15: White count 10.8 hemoglobin 7.7 White count 10.3 hemoglobin 7.8 platelets 309 Creatinine 1.5 2-D echocardiogram: Moderate concentric LVH. EF 45-50%. Moderate to severe tricuspid regurgitation. Severe pulmonary hypertension. Blood culture-Proteus mirabilis Wound culture-Proteus mirabilis Assessment: -Acute on chronic bilateral lower extremity wounds from venous stasis ulcers, with possible gas gangrene/acute osteomyelitis.-Followed by left above-knee amputation on October 17 -Sepsis with blood and wound culture both growing Proteus mirabilis -Chronic kidney disease stage III from diabetic nephropathy and nephrosclerosis -Morbid obesity BMI 54.9 -Diabetes mellitus type 2 changed over to metformin -GERD -Essential hypertension -Hyperlipidemia -Coronary artery disease with prior history of bypass -Diabetic peripheral neuropathy -Chronic low back pain from arthritis -Chronic medical debility patient is a walker or wheelchair -Secondary severe pulmonary hypertension -Moderate mitral and moderate to severe tricuspid regurgitation -Acute postprocedure blood loss anemia expected from surgery hemoglobin 6.6. Plan: IV ceftriaxone. Unit of blood has been ordered. Repeat CBC later today. DC the ECF tomorrow. Discussed with the vascular, FOR DC tomorrow
[2020-10-20 23:14] VITALS: RESP 18
[2020-10-21] MEDS: HYDROmorphone 0.5 MG/0.5 ML SYRINGE IVP PRN ×3 (01:16→14:09)
[2020-10-21 06:05] LABS: Glucose,Whole Blood 150 mg/dL (75-99)
[2020-10-21] MEDS: INSULIN ASPART (NovoLOG) 100 UNIT/ML VIAL SQ SCH ×3 (06:31→17:17)
[2020-10-21] MEDS: metFORMIN 850 MG TAB PO SCH ×2 (06:31→17:20)
[2020-10-21 08:21] VITALS: PULSE 70; TEMP 97.1
[2020-10-21] MEDS: ATORVASTATIN 80 MG TAB PO SCH (08:22)
[2020-10-21] MEDS: ASPIRIN 81 MG PO SCH (08:22)
[2020-10-21] MEDS: carvediloL 12.5 MG TAB PO SCH (08:22)
[2020-10-21 08:37] LABS: Anisocytosis Moderate; Basophils % (A) 0 %; Eosinophils # (A) 0.2 k/uL (0-0.7); Eosinophils % (A) 2 %; HCT 24.5 % (34.0-46.0); HGB 7.8 gm/dL (11.4-16.0); Hypochromasia Marked; Lymphocytes % (A) 11 %; MCH 27.7 pg (25.0-35.0); MCHC 31.8 g/dL (31.0-37.0); Mean Platelet Volume 6.7; Monocytes # (A) 0.4 k/uL (0-1.0); Monocytes % (A) 4 %; Neutrophils # (A) 7.2 k/uL (1.3-7.7); Neutrophils % (A) 82 %; Platelet Count 217 k/uL (150-450); Poikilocytosis Slight; RBC 2.82 m/uL (3.80-5.40); RDW 20.1 % (11.5-15.5); WBC 8.9 k/uL (3.8-10.6)
[2020-10-21 08:58] LABS: Calcium 7.9 mg/dL (8.4-10.2); Potassium 4.5 mmol/L (3.5-5.1)
--- NOTE | 2020-10-21 09:51 | P.PN ---
Subjective Progress Note Date: 10/21/20 Was seen and examined lying in bed, she is status post left [id number] amputation this past . The patient still has her Scruggs catheter in place. The patient states she had significant pain yesterday evening and last night in her left AKA stump. Patient states she's feeling nauseated today. Plan is for discharge to rehab today. Patient has stump supervisor electronic testing. She had a drop in her hemoglobin and was transfused with 2 units of packed red blood cells. Today's hemoglobin is 7.4. Objective - Vital Signs Vital signs: Vital Signs Temp 97.1 F L 10/21/20 08:00 Pulse 70 10/21/20 08:00 Resp 18 10/21/20 08:00 BP 137/63 10/21/20 08:00 Pulse Ox 99 10/21/20 08:00 Intake & Output 10/20/20 10/21/20 10/21/20 18:59 06:59 18:59 Intake Total 2270 180 Output Total 820 Balance 2270 -820 180 Weight 116 kg Intake: Intake, IV Titration 450 Amount Sodium Chloride 0.9% 1, 400 000 ml @ 50 mls/hr IV . Q20H [facility] Rx#:[id number] cefTRIAXone 2 gm In 50 Sodium Chloride 0.9% 50 ml @ 100 mls/hr IVPB Q24HR [facility] Rx#:[id number] Oral 1200 180 Blood Product 620 Rc Pheresis As-3 Unit 310 [id number] Output: Urine 820 Other: Voiding Method Indwelling Catheter Indwelling Catheter - Exam General appearance: The patient is alert, oriented, in no acute distress. HET: Head is normocephalic and atraumatic. Neck: Supple. Trachea midline. Extremities: Left [id number]-[id number] amputation stump with stump supervisor electronic testing. Dressing change, small amount of serosanguineous drainage from the Ximena drain. Elroy drain removed. Dressing reapplied with stump supervisor electronic testing. Neurological: No focal deficits. Strength and sensation are grossly intact. - Labs CBC & Chem 7: 10/21/20 08:02 10/21/20 08:02 Labs: Abnormal Lab Results - Last 24 Hours (Table) 10/17/20 10/20/20 10/20/20 Range/Units 08:39 07:04 11:45 RBC (3.80-5.40) m/uL Hgb (11.4-16.0) gm/dL Hct (34.0-46.0) % MCHC (31.0-37.0) g/dL RDW (11.5-15.5) % Chloride (98-107) mmol/L BUN (7-17) mg/dL POC Glucose (mg/dL) 176 H (75-99) mg/dL Calcium (8.4-10.2) mg/dL Crossmatch See Detail See Detail 10/20/20 10/20/20 10/20/20 Range/Units 16:05 19:01 20:13 RBC 2.77 L (3.80-5.40) m/uL Hgb 7.4 L (11.4-16.0) gm/dL Hct 24.0 L (34.0-46.0) % MCHC 30.7 L (31.0-37.0) g/dL RDW 19.9 H (11.5-15.5) % Chloride (98-107) mmol/L BUN (7-17) mg/dL POC Glucose (mg/dL) 174 H 136 H (75-99) mg/dL Calcium (8.4-10.2) mg/dL Crossmatch 10/21/20 10/21/20 10/21/20 Range/Units 06:04 08:02 08:02 RBC 2.82 L (3.80-5.40) m/uL Hgb 7.8 L (11.4-16.0) gm/dL Hct 24.5 L (34.0-46.0) % MCHC (31.0-37.0) g/dL RDW 20.1 H (11.5-15.5) % Chloride 111 H (98-107) mmol/L BUN 24 H (7-17) mg/dL POC Glucose (mg/dL) 150 H (75-99) mg/dL Calcium 7.9 L (8.4-10.2) mg/dL Crossmatch Assessment and Plan Assessment: 1. Postop day #4 for a left uskwn-eud-hgez amputation 2. Significant left lower extremity wounds 3. Left ankle infection 4. Bacteremia 5. Acute on chronic anemia Plan: Okay by vascular surgery to discontinue Scruggs catheter. Patient may be discharged to rehab today, will remove Ximena drain this afternoon before patient's discharge. Patient to follow-up with Dr. Scruggs in 1-2 weeks. The impression and plan of care has been dictated as directed. Dr. Scruggs I performed a history and examination of this patient, discussed the same with the dictator. I agree with the dictator's note ,documented as a scribe. Any additional findings or plans will be noted.
[2020-10-21 11:30] VITALS: BP 121/81
[2020-10-21 11:39] LABS: Glucose,Whole Blood 134 mg/dL (75-99)
[2020-10-21] MEDS: traMADol-ACETAMINOP 37.5-325MG 1 EACH TAB PO PRN (13:20)
--- NOTE | 2020-10-21 14:59 | P.DS ---
Providers Date of admission: 10/09/20 15:36 Expected date of discharge: 10/21/20 Attending physician: Bobby Quinones Consults: 10/09/20 15:37 Consult Physician Routine Consulting Provider: Donavan Gibbs Consult Reason/Comments: cellulitis Do you want consulting provider notified?: Yes 10/09/20 16:11 Consult Physician Routine Consulting Provider: Izabel Scruggs Consult Reason/Comments: vascular disease Do you want consulting provider notified?: Yes 10/14/20 22:35 Consult Physician Routine Consulting Provider: Sha Smith Consult Reason/Comments: Pre-operative clearance Do you want consulting provider notified?: Yes Primary care physician: Jason Garcia MD Hospital Course: Interval history: This is a patient with acute on chronic lower extremity leg wounds Patient presents with worsening wounds with drainage and oozing. Infected -cellulitis. Cultures positive for Proteus mirabilis and patient on IV cefepime. Computed tomography scan of the lower extremity showed multiple areas of bone loss involving the tarsal bones, subcutaneous edema also some air bubbles around the tarsal metatarsal joints of the midfoot. Patient was transfused a unit of blood on October 11 and on October 12. October 17-left above-knee amputation. Patient received a total of 5 units of PRBC. Today-comfortable. Tolerating oral diet. Pain control. Hemoglobin today 7.8. Care was discussed with the patient. Discussed with Dr. Gibbs from [place]. By mouth ciprofloxacin for 5 days. Discussion and discharge planning more than 35 minutes Consultation: Dr. Adrienne Scruggs from vascular surgery [facility] Dr. Gibbs from [place] On examination: VITAL SIGNS: 97, 70, 18, 10/31/1990, 97% room air GENERAL APPEARANCE: Sitting up in bed,, comfortable EYES: Pupils equal. Conjunctiva normal. NECK: JVD unable to assess,. Mass not palpable. RESPIRATORY: Respiratory effort increased. Diminished breath sounds. CARDIOVASCULAR: First and second sounds normal. Edema present. ABDOMEN: Soft. Liver and spleen not palpable. No tenderness. No mass palpable. PSYCHIATRY: Alert and oriented x3. Mood and affect normal. EXTREMITIES: Left above-knee amputation with dressing over the stump INVESTIGATIONS, reviewed in the clinical context: October 21: Hemoglobin 7.8 creatinine 1.04 October 20: Hemoglobin 6.6 October 19: White count 9.7 hemoglobin 7.1 October 18: White count 12.2 hemoglobin 7.5 potassium 4.3 creatinine 0.81 October 17: White count 11.9 hemoglobin 8.6 October 16: Hemoglobin 9.1 creatinine 1.04 October 15: White count 10.8 hemoglobin 7.7 White count 10.3 hemoglobin 7.8 platelets 309 Creatinine 1.5 2-D echocardiogram: Moderate concentric LVH. EF 45-50%. Moderate to severe tricuspid regurgitation. Severe pulmonary hypertension. Blood culture-Proteus mirabilis Wound culture-Proteus mirabilis Assessment: -Acute on chronic bilateral lower extremity wounds from venous stasis ulcers, with possible gas gangrene/acute osteomyelitis.-Followed by left above-knee amputation on October 17 -Sepsis with blood and wound culture both growing Proteus mirabilis -Chronic kidney disease stage III from diabetic nephropathy and nephrosclerosis -Morbid obesity BMI 54.9 -Diabetes mellitus type 2 changed over to metformin -GERD -Essential hypertension -Hyperlipidemia -Coronary artery disease with prior history of bypass -Diabetic peripheral neuropathy -Chronic low back pain from arthritis -Chronic medical debility patient is a walker or wheelchair -Secondary severe pulmonary hypertension -Moderate mitral and moderate to severe tricuspid regurgitation -Acute postprocedure blood loss anemia expected from surgery hemoglobin -given a total of 5 units of blood. Disposition: ECF/[facility] Patient Condition at Discharge: Stable Plan - Discharge Summary Discharge Rx Participant: Yes New Discharge Prescriptions: New Ciprofloxacin HCl [Cipro] 500 mg PO Q12H 5 Days #10 tab Aspirin 81 mg PO DAILY chew Atorvastatin [Lipitor] 80 mg PO DAILY tab metFORMIN HCL 1,000 mg PO BID #1 tab INSULIN ASPART (NovoLOG) [NovoLOG (formulary)] 0 unit SQ ACHS vial Acetaminophen Tab [Tylenol] 650 mg PO Q6HR PRN tab PRN Reason: Fever And/ Or Pain Lisinopril [Zestril] 5 mg PO DAILY #1 tab Continue Clopidogrel [Plavix] 75 mg PO DAILY Carvedilol [Coreg] 12.5 mg PO BID Gabapentin [Neurontin] 300 mg PO HS #3 capsule Discontinued Insulin Detemir [Levemir Flextouch] 10 units SQ HS traMADol-ACETAMINOP 37.5-325MG [Ultracet] 1 tab PO TID PRN PRN Reason: Pain Insulin Aspart [NovoLOG Flexpen] 10 units SQ DAILY Discharge Medication List Carvedilol [Coreg] 12.5 mg PO BID 08/17/18 [History] Clopidogrel [Plavix] 75 mg PO DAILY 08/17/18 [History] Acetaminophen Tab [Tylenol] 650 mg PO Q6HR PRN tab 10/21/20 [Rx] Aspirin 81 mg PO DAILY chew 10/21/20 [Rx] Atorvastatin [Lipitor] 80 mg PO DAILY tab 10/21/20 [Rx] Ciprofloxacin HCl [Cipro] 500 mg PO Q12H 5 Days #10 tab 10/21/20 [Rx] Gabapentin [Neurontin] 300 mg PO HS #3 capsule 10/21/20 [Rx] INSULIN ASPART (NovoLOG) [NovoLOG (formulary)] 0 unit SQ ACHS vial 10/21/20 [Rx] Lisinopril [Zestril] 5 mg PO DAILY #1 tab 10/21/20 [Rx] metFORMIN HCL 1,000 mg PO BID #1 tab 10/21/20 [Rx] Follow up Appointment(s)/Referral(s): Jason Garcia MD [Primary Care Provider] - As Needed [facility], [NON-STAFF] - As Needed Activity/Diet/Wound Care/Special Instructions: wound care per vascular and follow - up cbc/bmp - 3 days
[2020-10-21 16:48] LABS: Glucose,Whole Blood 388 mg/dL (75-99)
[2020-10-21 16:53] LABS: Glucose,Whole Blood 182 mg/dL (75-99)
[2020-10-21] MEDS: SODIUM CHLORIDE 0.9% 1,000 ML IV SCH (17:17)
--- NOTE | 2020-10-21 17:56 | PN ---
PROGRESS NOTE DATE OF SERVICE: 10/21/2020 REASON FOR FOLLOWUP: Left diabetic leg infection with Proteus mirabilis bacteremia. INTERVAL HISTORY: The patient was seen on rounds early this afternoon. The patient has been afebrile. The patient is breathing comfortably. No chest pain or cough. No abdominal pain. Pain to the left AK stump is currently controlled. PHYSICAL EXAMINATION: Blood pressure 120/81 with a pulse of 70, temperature 97.1. She is 97% on room air. General description is a middle-aged female lying in bed in no distress. RESPIRATORY SYSTEM: Unlabored breathing. Clear to auscultation anteriorly. HEART: S1, S2. Regular rate and rhythm. ABDOMEN: Soft. No tenderness. Left AK stump is currently dressed. LABS: Hemoglobin 7.8, white count 8.9, creatinine 1.04. DIAGNOSTIC IMPRESSION AND PLAN: Patient with Proteus mirabilis bacteremia secondary to left leg infection, status post left [id number]-[id number] amputation. In view of the bacteremia, she will be given a 5- day course of oral Cipro to finish a course of therapy and close outpatient followup. MMODL / IJN: [id number] /
== END 2020-10-21 18:14 | DRG 853 ==
LOC: EC 13:11 → 4SSUR 15:36 → 3SCARD 10-17 11:33
PROVIDERS: ADMIT Hospitalist; ATTEND Hospitalist
PROC: 0QBM0ZZ Excision of Left Tarsal, Open Approach (ICD-10-PCS; 2020-10-11)
PROC: 0JBP0ZZ Excision of Left Lower Leg Subcutaneous Tissue and Fascia, Open Approach (ICD-10-PCS; 2020-10-11)
PROC: 30233N1 Transfusion of Nonautologous Red Blood Cells into Peripheral Vein, Percutaneous Approach (ICD-10-PCS; 2020-10-11)
PROC: 0Y6D0Z1 Detachment at Left Upper Leg, High, Open Approach (ICD-10-PCS; principal; 2020-10-17 07:30)
DX: A41.52 Sepsis due to Pseudomonas (principal); A48.0 Gas gangrene; E11.52 Type 2 diabetes mellitus with diabetic peripheral angiopathy with gangrene; Z68.43 Body mass index [BMI] 50.0-59.9, adult; I50.32 Chronic diastolic (congestive) heart failure; I13.0 Hypertensive heart and chronic kidney disease with heart failure and stage 1 through stage 4 chronic kidney disease, or unspecified chronic kidney disease; L03.116 Cellulitis of left lower limb; M86.162 Other acute osteomyelitis, left tibia and fibula; N17.9 Acute kidney failure, unspecified; D62 Acute posthemorrhagic anemia; L97.929 Non-pressure chronic ulcer of unspecified part of left lower leg with unspecified severity; E11.69 Type 2 diabetes mellitus with other specified complication; E11.42 Type 2 diabetes mellitus with diabetic polyneuropathy; M19.90 Unspecified osteoarthritis, unspecified site; M06.9 Rheumatoid arthritis, unspecified; K21.9 Gastro-esophageal reflux disease without esophagitis; N18.30 Chronic kidney disease, stage 3 unspecified; I27.20 Pulmonary hypertension, unspecified; I44.0 Atrioventricular block, first degree; I25.5 Ischemic cardiomyopathy; I25.10 Atherosclerotic heart disease of native coronary artery without angina pectoris; F32.9 Major depressive disorder, single episode, unspecified; E87.5 Hyperkalemia; E66.01 Morbid (severe) obesity due to excess calories; I08.1 Rheumatic disorders of both mitral and tricuspid valves; D63.1 Anemia in chronic kidney disease; I89.0 Lymphedema, not elsewhere classified; I87.2 Venous insufficiency (chronic) (peripheral); G89.29 Other chronic pain; E11.22 Type 2 diabetes mellitus with diabetic chronic kidney disease; E11.649 Type 2 diabetes mellitus with hypoglycemia without coma; K52.9 Noninfective gastroenteritis and colitis, unspecified; E78.5 Hyperlipidemia, unspecified; Z95.5 Presence of coronary angioplasty implant and graft; Z95.1 Presence of aortocoronary bypass graft; Z79.899 Other long term (current) drug therapy; Z79.82 Long term (current) use of aspirin; Z79.4 Long term (current) use of insulin; Z91.040 Latex allergy status; Z91.09 Other allergy status, other than to drugs and biological substances; Z86.19 Personal history of other infectious and parasitic diseases; Z86.14 Personal history of Methicillin resistant Staphylococcus aureus infection; Z83.3 Family history of diabetes mellitus; Z82.49 Family history of ischemic heart disease and other diseases of the circulatory system; Z79.02 Long term (current) use of antithrombotics/antiplatelets; Z98.42 Cataract extraction status, left eye; Z98.41 Cataract extraction status, right eye; I25.2 Old myocardial infarction; Z98.890 Other specified postprocedural states; Z98.891 History of uterine scar from previous surgery; Z82.3 Family history of stroke; Z84.1 Family history of disorders of kidney and ureter
CPT/HCPCS: 36410; 36415; 76937; 80048; 80053; 81001; 82550; 82565; 82728; 83036; 83540; 83550; 83605; 83735; 84484; 85025; 85027; 85610; 85730; 86850; 86860; 86870; 86880; 86900; 86901; 86902; 86920; 87040; 87070; 87075; 87077; 87186; 87205; 88108; 93005; 93306; 96361; 96365; 96375; 99285

== ENCOUNTER 2021-05-09 12:37 | Inpatient (IN) | payer MEDICARE, OTHER ==
[~2021-05-09 12:37] MED LIST: DEXAMETHASONE SOD PHOSPHATE 4 MG/ML 1 ML VIAL IV ONE; HYDROmorphone 0.5 MG/0.5 ML SYRINGE IVP PRN; LIDOCAINE 1% (10MG/ML) FOR IV START INTRADERMA PRN; ONDANSETRON 4 MG/2 ML VIAL IVP ONE; Pre Op ABX Message 1 EACH MISC MISCELLANE ONE
[2021-05-09] MEDS ORDERED: LACTATED RINGERS 1,000 ML IV ONE (13:14)
[2021-05-09 13:49] LABS: Glucose,Whole Blood 116 mg/dL (75-99)
[2021-05-09 14:18] LABS: Potassium 5.3 mmol/L (3.5-5.1)
[2021-05-09] MEDS ORDERED: SUCCINYLCHOLINE CHLORIDE 100 MG/5 ML SYR IV ONE (16:31)
[2021-05-09] MEDS ORDERED: MIDAZOLAM 2 MG/2 ML VIAL ONE (16:31)
[2021-05-09] MEDS ORDERED: PROPOFOL 10 MG/ML 20 ML VIAL IV ONE (16:31)
[2021-05-09] MEDS ORDERED: LIDOCAINE 1% INJ 10MG/ML (20 ML MDV) ONE (16:31)
[2021-05-09] MEDS ORDERED: PHENYLEPHRINE-0.9% NACL SYG 1,000 MCG/10 ML SYRINGE ONE (16:31)
[2021-05-09] MEDS ORDERED: fentaNYL (PF) 50 MCG/ML 2 ML AMP ONE (16:31)
--- NOTE | 2021-05-09 16:42 | P.HPIHPCON ---
History of Present Illness H&P Date: 05/09/21 Appendectomy is a 60-year-old female well known to me from previous above-knee amputation of the left lower extremity for significant nonhealing wounds. She has a wound of her right lower extremity that she has been supposedly taking care of at home and seeing wound care for. She was seen in the office easily and was found to have maggots in her wound. It was discussed with her the likelihood of benefit from operative debridements. She seemingly understood and is willing to proceed as such. Consent for Procedure: I have explained the operation/procedure to the patient, including the risks, benefits, side effects, alternative therapies (including not receiving the proposed treatment or service), the likelihood of the patient achieving his/her goals, and potential recuperation problems for the procedure/sedation/analgesia, as well as any blood products, if indicated. I also explained to the patient the risks, benefits and side effects of the alternatives, as well as the risks related to not receiving the proposed procedure, care, treatment, or services. Past Medical History Past Medical History: Coronary Artery Disease (CAD), Heart Failure, COPD, Diabetes Mellitus, GERD/Reflux, Hyperlipidemia, Hypertension, Myocardial Infarction (MA), Osteoarthritis (OA), Renal Disease, Rheumatoid Arthritis (RA), Skin Disorder, Vascular Disorder Additional Past Medical History / Comment(s): venous stasis ulcers, hx cellulitis, left AKA Oct 2020., IDDM type II, neuropathy, CKD stage III, Chronic back and bilateral leg pain, gallstones, R breast slightly enlarged., states rash on back of thighs from slide board used for transferring., states current wound right heel and smaller wounds on leg. Last Myocardial Infarction Date:: 2011 History of Any Multi-Drug Resistant Organisms: ESBL, MRSA Date of last positivie culture/infection: 01/26/20 ESBL / 03/20/19 MRSA MDRO Source:: ESBL URINE/ MRSA BLOOD Past Surgical History: Section Additional Past Surgical History / Comment(s): 2011 CABG 2 vessel, D&C, C- sections x 2, bilateral lower leg/heels debrided., left above the knee amputation (Oct 2020). 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 HX OF 3PPD., In the past used to drink heavily but none since 1990 Past Drug Use History: None Reported - Past Family History Mother Additional Family Medical History / Comment(s): anuerysm Father Family Medical History: CVA/TIA, Diabetes Mellitus, Myocardial Infarction ([place]) Sister(s) Additional Family Medical History / Comment(s): one sister had "hole in her heart" and a kidney transplant and another sister had ms. Medications and Allergies Home Medications Medication Instructions Recorded Confirmed Type Carvedilol [Coreg] 12.5 mg PO BID 08/17/18 05/07/21 History Clopidogrel [Plavix] 75 mg PO DAILY 08/17/18 05/07/21 History Aspirin 81 mg PO DAILY chew 10/21/20 05/07/21 Rx Gabapentin [Neurontin] 300 mg PO HS #3 capsule 10/21/20 05/07/21 Rx traMADol-ACETAMINOP 37.5-325MG 1 each PO TID PRN 3 Days #9 tab 10/21/20 05/07/21 Rx [Ultracet] Allopurinol [Zyloprim] 100 mg PO DAILY 05/07/21 05/07/21 History INSULIN ASPART (NovoLOG) [NovoLOG 0 unit SQ AC-TID PRN 05/07/21 05/07/21 History (formulary)] Insulin Detemir (Levemir) [Levemir] 40 unit SQ HS 05/07/21 05/07/21 History Loperamide [Imodium] 2 mg PO QID PRN 05/07/21 05/07/21 History Pantoprazole Sodium 40 mg PO DAILY 05/07/21 05/07/21 History Symbicort Inhaler 1 dose INHALATION DIRECTED PRN 05/07/21 05/09/21 History Allergies Allergy/AdvReac Type Severity Reaction Status Date / Time vitamin E (d-alpha Allergy Unknown Rash/Hives Verified 05/07/21 12:01 tocopherol) collagenase Clostridium Allergy Rash/Hives Verified 05/07/21 12:00 histolyticu [From Santyl] latex Allergy Rash/Hives Verified 05/07/21 12:00 pollen extracts AdvReac Mild Itching Verified 05/07/21 12:00 dial soap Allergy Unknown Rash/Hives Uncoded 05/07/21 12:30 Surgical - Exam Vital Signs Temp Pulse Resp BP Pulse Ox 97.8 F 78 18 145/78 97 05/09/21 13:23 05/09/21 13:23 05/09/21 13:23 05/09/21 13:23 05/09/21 13:23 Is a pleasant cooperative female in no acute distress on the [facility]. HEENT normocephalic. Atraumatic. Extraocular motion intact. Heart appears regular in rate and rhythm. Lungs clear bilaterally. Abdomen soft, nontender no ndistended. Obese. Left lower extremity above-knee amputation. Right lower extremity wounds dressed. Wet dressing. Results - Labs 05/09/21 13:45 Abnormal Lab Results - Last 24 Hours (Table) 05/09/21 05/09/21 Range/Units 13:45 13:47 Potassium 5.3 H (3.5-5.1) mmol/L BUN 58 H (7-17) mg/dL Creatinine 2.01 H (0.52-1.04) mg/dL POC Glucose (mg/dL) 116 H (75-99) mg/dL Diabetes panel 05/09/21 Range/Units 13:45 Potassium 5.3 H (3.5-5.1) mmol/L BUN 58 H (7-17) mg/dL Creatinine 2.01 H (0.52-1.04) mg/dL Pituitary panel 05/09/21 Range/Units 13:45 Potassium 5.3 H (3.5-5.1) mmol/L BUN 58 H (7-17) mg/dL Creatinine 2.01 H (0.52-1.04) mg/dL Adrenal panel 05/09/21 Range/Units 13:45 Potassium 5.3 H (3.5-5.1) mmol/L BUN 58 H (7-17) mg/dL Creatinine 2.01 H (0.52-1.04) mg/dL Assessment and Plan Assessment: Nonhealing right lower extremity wound Inability to care for herself and degree of wound Plan: We'll plan today states the patient for aggressive debridement. We had a long discussion regarding the possibility of requiring amputation in the future. We will have to evaluate the thigh as apparently there are wounds here as well now that have popped up. I do believe she likely would benefit from staying overnight in having a case management social worker evaluation for possible rehab for her wounds and aggressive wound care as uncertain she is getting appropriate therapies at home
[2021-05-09] MEDS ORDERED: NALOXONE 0.4 MG/ML 1 ML VIAL IV PRN (17:34)
[2021-05-09] MEDS ORDERED: ONDANSETRON 4 MG/2 ML VIAL IVP PRN (17:34)
--- NOTE | 2021-05-09 17:42 | P.OP ---
Date of Procedure: 05/09/21 Description of Procedure: Preoperative diagnosis: Nonhealing wound right lower extremity, inability to maintain self-care Postoperative diagnosis: Same, clinical osteomyelitis right great toe Procedure: [Right lower extremity sharp excisional debridement, 20 x 15 x 0.2 collected area of wounds Right great toe sharp excisional debridement 3 x 2.6 x 0.4 to bone] Surgeon: Izabel Scruggs D.O. EBL: [Less than 10 mL] IV fluids: [See records] Urine output: [Not measured] Drains: [None] Complications: [None immediately apparent] Condition: [Stable to recovery] Operative indication and findings: [Grecia is a 60-year-old female who previously has undergone a left lower extremity above-knee dictation for significant nonhealing wounds. She presented with somewhat wounds to the right lower extremity has been seen in wound care. She presented to the office with a need for further aggressive debridement. Risks and benefits were discussed. It was discussed that at some point she'll likely will have to undergo some degree of amputation if not a an above-knee amputation to match the leg. She seemingly understood and was willing to proceed as such] Procedure in detail: [The patient was taken the operative suite and placed in supine position. The right lower extremity was prepped and draped in usual sterile fashion. A preprocedure timeout was performed. All parties are in agreement. Initially using a surgical scrub brush the right lower extremity was debrided. There are multiple areas of wounds to the subcutaneous tissues and some to the dermal level. The curet was then utilized at the areas where the larger ones were the posterior calf and the wounds are clean down to good granulation tissue. Attention was then turned towards the great toe. There was significant necrotic tissue which was cut away with scissors. This did leave a wound down to the level of the bone which was exposed.. The heel was then debrided. All areas were then cleansed. Dressings were placed.]
[2021-05-09 18:10] LABS: Glucose,Whole Blood 141 mg/dL (75-99)
[2021-05-09] MEDS: SODIUM CHLORIDE 0.9% 1,000 ML IV SCH (18:51)
[2021-05-09] MEDS ORDERED: MORPHINE SULFATE 4 MG/ML SYRINGE IVP PRN (19:52)
[2021-05-09] MEDS: LACTATED RINGERS 1,000 ML IV SCH (20:36)
[2021-05-09] MEDS: FAMOTIDINE 20 MG TAB PO SCH (22:26)
[2021-05-09] MEDS: GABAPENTIN 300 MG CAP PO SCH (22:26)
[2021-05-09 23:57] LABS: Glucose,Whole Blood 317 mg/dL (75-99)
[2021-05-10] MEDS: INSULIN ASPART (NovoLOG) 100 UNIT/ML VIAL SQ SCH ×5 (00:32→21:25)
[2021-05-10] MEDS: LACTATED RINGERS 1,000 ML IV SCH (00:33)
[2021-05-10] MEDS: traMADol-ACETAMINOP 37.5-325MG 1 EACH TAB PO PRN ×2 (00:39→14:52)
[2021-05-10] MEDS: HEPARIN SODIUM,PORCINE/PF 5,000 UNIT/0.5 ML SYRINGE SQ SCH ×4 (00:39→23:07)
[2021-05-10] MEDS ORDERED: SODIUM POLYSTYRENE SULFONATE 15 GM/60 ML BOTTLE PO ONE (00:43)
--- NOTE | 2021-05-10 00:57 | P.CONS ---
History of Present Illness - Reason for Consult Consult date: 05/09/21 - History of Present Illness The patient is 60-year-old female with a PMH of type II DM, left AKA, chronic kidney disease, coronary artery disease, systolic CHF, and chronic kidney disease who was admitted for a right lower extremity wound incision and drainage. The patient underwent the procedure earlier today and was seen postoperatively on the surgical unit. She reported ongoing 3 out of 10 pain at the site of the procedure. She also reported similar pain in her gluteal region due to her numerous skin breaks. She denied additional complaints. She denied chest discomfort, shortness of breath, fever, chills, cough. She denied abdominal pain, nausea, vomiting, diarrhea. Review of systems: Pertinent positives and negatives as discussed in HPI, a complete review of systems was performed and all other systems are negative. Physical examination: General: non toxic, no distress, appears at stated age, normal weight Derm: Right lower extremity Yusuf bandage in place, left AKA, gluteal diffuse skin tears with weeping sores, no unusual ecchymoses, warm Head: atraumatic, normocephalic, symmetric Eyes: EOMI, no lid lag, anicteric sclera, pupils equal round reactive to light ENT: Nose and ears atraumatic, no thrush, no pharyngeal erythema Neck: No thyromegaly, no cervical lymphadenopathy, trachea midline, supple Mouth: no lip lesion, mucus membranes moist Cardiovascular: S1S2 reg, no murmur, positive posterior tibial pulse bilateral, no edema, capillary refill less than 2 seconds Lungs: CTA bilateral, no rhonchi, no rales , no accessory muscle use Abdominal: soft, nontender to palpation, no guarding, no appreciable organomegaly, normal bowel sounds Ext: no gross muscle atrophy, muscle strength 5 out of 5 in all extremities grossly, no contractures Neuro: CN II-XI grossly intact, light touch intact all 4 extremities, finger to nose within normal limits, Psych: Alert, oriented, appropriate affect Assessment/plan Hyperkalemia -S/p kayexalate 15 mg po once -Monitor for now -Continue IV fluids LUCA on chronic kidney disease -Continue with IV fluids -Monitor BMP for Chronic conditions: Type II DM coronary artery disease, chronic CHF -Continue with home meds -Lispro insulin sliding scale blood glucose monitoring -Patient reports that her Levemir had been discontinued by her primary care physician. -Check A1c Multiple gluteal weeping ulcers and skin tears -Wound care consulted Status post right lower extremity incision and drainage -Defer management including DVT prophylaxis to surgery service Past Medical History Past Medical History: Coronary Artery Disease (CAD), Heart Failure, COPD, Diabetes Mellitus, GERD/Reflux, Hyperlipidemia, Hypertension, Myocardial Infarction ([place]), Osteoarthritis (OA), Renal Disease, Rheumatoid Arthritis (RA), Skin Disorder, Vascular Disorder Additional Past Medical History / Comment(s): venous stasis ulcers, hx cellulitis, left AKA Oct 2020., IDDM type II, neuropathy, CKD stage III, Chronic back and bilateral leg pain, gallstones, R breast slightly enlarged., states rash on back of thighs from slide board used for transferring., states current wound right heel and smaller wounds on leg. Last Myocardial Infarction Date:: 2011 History of Any Multi-Drug Resistant Organisms: ESBL, MRSA Year Discovered:: 01/26/20 ESBL / 03/20/19 MRSA MDRO Source:: ESBL URINE/ MRSA BLOOD Past Surgical History: Section Additional Past Surgical History / Comment(s): 2012 CABG 2 vessel, D&C, C- sections x 2, bilateral lower leg/heels debrided., left above the knee amputation (Oct 2020). 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 HX OF 3PPD., In the past used to drink heavily but none since 1990 Past Drug Use History: None Reported - Past Family History Mother Additional Family Medical History / Comment(s): anuerysm Father Family Medical History: CVA/TIA, Diabetes Mellitus, Myocardial Infarction ([place]) Sister(s) Additional Family Medical History / Comment(s): one sister had "hole in her heart" and a kidney transplant and another sister had ms. Medications and Allergies Home Medications Medication Instructions Recorded Confirmed Type Carvedilol [Coreg] 12.5 mg PO BID 08/17/18 05/07/21 History Clopidogrel [Plavix] 75 mg PO DAILY 08/17/18 05/07/21 History Aspirin 81 mg PO DAILY chew 10/21/20 05/07/21 Rx Gabapentin [Neurontin] 300 mg PO HS #3 capsule 10/21/20 05/07/21 Rx traMADol-ACETAMINOP 37.5-325MG 1 each PO TID PRN 3 Days #9 tab 10/21/20 05/07/21 Rx [Ultracet] Allopurinol [Zyloprim] 100 mg PO DAILY 05/07/21 05/07/21 History INSULIN ASPART (NovoLOG) [NovoLOG 0 unit SQ AC-TID PRN 05/07/21 05/07/21 History (formulary)] Insulin Detemir (Levemir) [Levemir] 40 unit SQ HS 05/07/21 05/07/21 History Loperamide [Imodium] 2 mg PO QID PRN 05/07/21 05/07/21 History Pantoprazole Sodium 40 mg PO DAILY 05/07/21 05/07/21 History Symbicort Inhaler 1 dose INHALATION DIRECTED PRN 05/07/21 05/09/21 History Allergies Allergy/AdvReac Type Severity Reaction Status Date / Time vitamin E (d-alpha Allergy Unknown Rash/Hives Verified 05/07/21 12:01 tocopherol) collagenase Clostridium Allergy Rash/Hives Verified 05/07/21 12:00 histolyticu [From Santyl] latex Allergy Rash/Hives Verified 05/07/21 12:00 pollen extracts AdvReac Mild Itching Verified 05/07/21 12:00 dial soap Allergy Unknown Rash/Hives Uncoded 05/07/21 12:30 Physical Exam Vitals: Vital Signs Temp Pulse Resp BP Pulse Ox 05/09/21 21:10 86 132/75 05/09/21 20:55 86 135/76 05/09/21 20:40 89 164/84 05/09/21 20:25 78 148/80 05/09/21 20:20 18 05/09/21 20:10 85 145/75 05/09/21 19:55 80 147/79 05/09/21 19:40 85 137/50 05/09/21 19:25 97.8 F 87 15 138/74 100 05/09/21 19:15 82 16 112/62 100 05/09/21 19:01 85 16 109/47 100 05/09/21 18:47 85 16 115/53 100 05/09/21 18:44 83 16 116/53 97 05/09/21 18:30 81 16 118/51 97 05/09/21 18:15 85 16 115/58 97 05/09/21 17:58 87 16 131/64 97 05/09/21 17:42 86 16 119/64 97 05/09/21 17:27 82 16 125/62 94 L 05/09/21 13:23 97.8 F 78 18 145/78 97 Intake and Output 05/09/21 05/09/21 05/10/21 14:59 22:59 06:59 Intake Total 300 700 Output Total 10 Balance 300 690 Intake: IV 300 700 Output: Estimated Blood Loss 10 Other: Voiding Method Diaper Incontinent # Voids 1 Weight 101.5 kg Results CBC & Chem 7: 05/09/21 13:45 Labs: Abnormal Lab Results - Last 24 Hours (Table) 05/09/21 05/09/21 05/09/21 Range/Units 13:45 13:47 18:08 Potassium 5.3 H (3.5-5.1) mmol/L BUN 58 H (7-17) mg/dL Creatinine 2.01 H (0.52-1.04) mg/dL POC Glucose (mg/dL) 116 H 141 H (75-99) mg/dL
[2021-05-10 07:22] LABS: Glucose,Whole Blood 262 mg/dL (75-99)
[2021-05-10] MEDS ORDERED: INSULIN ASPART (NovoLOG) 100 UNIT/ML VIAL SQ SCH (07:30)
[2021-05-10] MEDS: FAMOTIDINE 20 MG TAB PO SCH (07:41)
[2021-05-10] MEDS: CLOPIDOGREL 75 MG TAB PO SCH (07:41)
[2021-05-10] MEDS: ASPIRIN 81 MG PO SCH (07:41)
[2021-05-10] MEDS: allopurinoL 100 MG TAB PO SCH (07:42)
[2021-05-10] MEDS: carvediloL 12.5 MG TAB PO SCH ×2 (07:42→21:25)
[2021-05-10] MEDS: SODIUM CHLORIDE 0.9% 1,000 ML IV SCH ×2 (07:42→23:24)
[2021-05-10] MEDS: PANTOPRAZOLE 40 MG TABLET PO SCH (08:19)
[2021-05-10] MEDS ORDERED: INSULIN DETEMIR (LEVEMIR) 100 UNIT/ML SYR SQ ONE (10:00)
[2021-05-10 11:38] LABS: Glucose,Whole Blood 317 mg/dL (75-99)
--- NOTE | 2021-05-10 11:59 | P.PN ---
Subjective Progress Note Date: 05/10/21 No new complaints. Pt says she is doing well after surgery. has noticed her sugars are high. I spoke to her briefly regarding possibility of rehab, and she would prefer to go home with home care services. From a medical standpoint, she is stable to do so, but will defer timing to surgery service. Objective - Vital Signs Vital signs: Vital Signs Temp 98.1 F 05/10/21 07:59 Pulse 82 05/10/21 07:59 Resp 16 05/10/21 07:59 BP 122/67 05/10/21 07:59 Pulse Ox 95 05/10/21 07:59 Intake & Output 05/09/21 05/10/21 05/10/21 18:59 06:59 18:59 Intake Total 1000 Output Total 10 Balance 990 Weight 100 kg Intake: IV 1000 Output: Estimated Blood Loss 10 Other: Voiding Method Diaper Diaper Incontinent Incontinent # Voids 4 - Exam Gen: awake, alert HEENT: normocephalic, atraumatic, good hearing acuity, moist mucous membranes Resp: good air exchange, breathing comfortably with no accessory muscle use, CTAB CVS: good distal perfusion x 4, RRR no murmurs GI: soft, NTTP, ND : no SPT, no CVAT, mcdermott catheter not present MSK: no pitting edema, no clubbing, RLE in c/d/i wraps, AKA of left lower extremity Psych: cooperative, euthymic mood - Labs CBC & Chem 7: 05/09/21 13:45 Labs: Abnormal Lab Results - Last 24 Hours (Table) 05/09/21 05/09/21 05/09/21 Range/Units 13:45 13:47 18:08 Potassium 5.3 H (3.5-5.1) mmol/L BUN 58 H (7-17) mg/dL Creatinine 2.01 H (0.52-1.04) mg/dL POC Glucose (mg/dL) 116 H 141 H (75-99) mg/dL 05/09/21 05/10/21 05/10/21 Range/Units 23:55 07:17 11:29 Potassium (3.5-5.1) mmol/L BUN (7-17) mg/dL Creatinine (0.52-1.04) mg/dL POC Glucose (mg/dL) 317 H 262 H 317 H (75-99) mg/dL Microbiology - Last 24 Hours (Table) 05/09/21 17:11 Wound Culture - Preliminary Foot - Right 05/09/21 17:11 Anaerobic Culture - Preliminary Foot - Right Assessment and Plan Assessment: Hyperkalemia -S/p kayexalate 15 mg po once -Monitor for now -Continue IV fluids LUCA on chronic kidney disease -Continue with IV fluids -Monitor BMP for Chronic conditions: Type II DM coronary artery disease, chronic CHF -Continue with home meds -Lispro insulin sliding scale blood glucose monitoring -Patient reports that her Levemir had been discontinued by her primary care physician. -restart levemir at 20U daily, half her previous dose due to high blood sugars -Check A1c Multiple gluteal weeping ulcers and skin tears -Wound care consulted Status post right lower extremity incision and drainage -Defer management including DVT prophylaxis to surgery service
--- NOTE | 2021-05-10 12:47 | P.DS ---
Providers Date of admission: 05/09/21 17:34 Attending physician: Izabel Scruggs DO Consults: 05/09/21 17:34 Consult Physician Routine Consulting Provider: Bobby Quinones Consult Reason/Comments: med management Do you want consulting provider notified?: Yes Primary care physician: Jason Garcia MD Hospital Course: Grecia is a 60-year-old female who was brought in for a selective debridement of her right lower extremity on 05/09/2021 due to worsened appearing wounds at wound care. She tolerated the procedure well. There is no obvious sign of active infection in the posterior wounds. We did discuss the great toe and the infection down to the level of the bone. It is likely that this toe will need amputation and that going forward she may need more aggressive amputation, this point we'll defer those issues to wound care and her follow-up as the patient does not wish undergoing dictation at this time. She is tolerating a diet without any significant issue. We also discussed the possibility of rehab or somewhere else to help care for her wounds and she is adamantly against that stating she can the do at her home. Plan - Discharge Summary Discharge Rx Participant: No New Discharge Prescriptions: No Action Clopidogrel [Plavix] 75 mg PO DAILY Carvedilol [Coreg] 12.5 mg PO BID Aspirin 81 mg PO DAILY chew Gabapentin [Neurontin] 300 mg PO HS #3 capsule traMADol-ACETAMINOP 37.5-325MG [Ultracet] 1 each PO TID PRN 3 Days #9 tab PRN Reason: Pain Insulin Detemir (Levemir) [Levemir] 40 unit SQ HS Allopurinol [Zyloprim] 100 mg PO DAILY Loperamide [Imodium] 2 mg PO QID PRN PRN Reason: loose stools Pantoprazole Sodium 40 mg PO DAILY INSULIN ASPART (NovoLOG) [NovoLOG (formulary)] 0 unit SQ AC-TID PRN PRN Reason: cbg above 200 Symbicort Inhaler 1 dose INHALATION DIRECTED PRN PRN Reason: Shortness Of Breath Discharge Medication List Carvedilol [Coreg] 12.5 mg PO BID 08/17/18 [History] Clopidogrel [Plavix] 75 mg PO DAILY 08/17/18 [History] Aspirin 81 mg PO DAILY chew 10/21/20 [Rx] Gabapentin [Neurontin] 300 mg PO HS #3 capsule 10/21/20 [Rx] traMADol-ACETAMINOP 37.5-325MG [Ultracet] 1 each PO TID PRN 3 Days #9 tab 10/21/20 [Rx] Allopurinol [Zyloprim] 100 mg PO DAILY 05/07/21 [History] INSULIN ASPART (NovoLOG) [NovoLOG (formulary)] 0 unit SQ AC-TID PRN 05/07/21 [History] Insulin Detemir (Levemir) [Levemir] 40 unit SQ HS 05/07/21 [History] Loperamide [Imodium] 2 mg PO QID PRN 05/07/21 [History] Pantoprazole Sodium 40 mg PO DAILY 05/07/21 [History] Symbicort Inhaler 1 dose INHALATION DIRECTED PRN 05/07/21 [History] Activity/Diet/Wound Care/Special Instructions: Return to regular activities at home. Continue local wound care as previously ordered. Follow-up with wound care Discharge Disposition: HOME WITH HOME HEALTH SERVICES
[2021-05-10 13:04] LABS: African American GFR (CKD) 30.5 (60.0-200.0); Anion Gap 9.3 mmol/L (4.00-12.00); Carbon Dioxide 18.7 mmol/L (21.6-31.8); Non-African American GFR(CKD) 26.3 (60.0-200.0); Potassium 5.7 mmol/L (3.5-5.5)
[2021-05-10 13:55] VITALS: BMI 37.8
[2021-05-10 16:18] LABS: Glucose,Whole Blood 249 mg/dL (75-99)
[2021-05-10] MEDS ORDERED: INSULIN DETEMIR (LEVEMIR) 100 UNIT/ML SYR SQ SCH (21:00)
[2021-05-10] MEDS: GABAPENTIN 300 MG CAP PO SCH (21:25)
[2021-05-10 21:26] LABS: Glucose,Whole Blood 167 mg/dL (75-99)
[2021-05-10] MEDS: ACETAMINOPHEN TAB 325 MG TAB PO PRN (21:46)
[2021-05-11 06:50] LABS: Glucose,Whole Blood 116 mg/dL (75-99)
[2021-05-11] MEDS: CLOPIDOGREL 75 MG TAB PO SCH (07:02)
[2021-05-11] MEDS: FAMOTIDINE 20 MG TAB PO SCH (07:03)
[2021-05-11] MEDS: PANTOPRAZOLE 40 MG TABLET PO SCH (07:03)
[2021-05-11] MEDS: allopurinoL 100 MG TAB PO SCH (07:03)
[2021-05-11] MEDS: carvediloL 12.5 MG TAB PO SCH ×2 (07:03→21:25)
[2021-05-11] MEDS: ASPIRIN 81 MG PO SCH (07:03)
[2021-05-11] MEDS: SODIUM CHLORIDE 0.9% 1,000 ML IV SCH ×2 (07:04→21:27)
[2021-05-11] MEDS: INSULIN ASPART (NovoLOG) 100 UNIT/ML VIAL SQ SCH ×4 (07:04→21:25)
[2021-05-11] MEDS: INSULIN DETEMIR (LEVEMIR) 100 UNIT/ML SYR SQ SCH (07:04)
[2021-05-11] MEDS: LACTATED RINGERS 1,000 ML IV SCH (07:04)
[2021-05-11] MEDS: HEPARIN SODIUM,PORCINE/PF 5,000 UNIT/0.5 ML SYRINGE SQ SCH ×3 (07:04→23:03)
[2021-05-11] MEDS: traMADol-ACETAMINOP 37.5-325MG 1 EACH TAB PO PRN (07:09)
[2021-05-11 11:36] LABS: Glucose,Whole Blood 169 mg/dL (75-99)
[2021-05-11 16:44] LABS: Glucose,Whole Blood 198 mg/dL (75-99)
[2021-05-11 20:54] LABS: Glucose,Whole Blood 138 mg/dL (75-99)
[2021-05-11] MEDS: GABAPENTIN 300 MG CAP PO SCH (21:25)
[2021-05-12 06:50] LABS: Glucose,Whole Blood 134 mg/dL (75-99)
[2021-05-12] MEDS: LACTATED RINGERS 1,000 ML IV SCH (07:00)
[2021-05-12] MEDS: INSULIN DETEMIR (LEVEMIR) 100 UNIT/ML SYR SQ SCH (07:03)
[2021-05-12] MEDS: PANTOPRAZOLE 40 MG TABLET PO SCH (07:03)
[2021-05-12] MEDS: carvediloL 12.5 MG TAB PO SCH (07:03)
[2021-05-12] MEDS: ACETAMINOPHEN TAB 325 MG TAB PO PRN (07:03)
[2021-05-12] MEDS: allopurinoL 100 MG TAB PO SCH (07:03)
[2021-05-12] MEDS: HEPARIN SODIUM,PORCINE/PF 5,000 UNIT/0.5 ML SYRINGE SQ SCH (07:03)
[2021-05-12] MEDS: ASPIRIN 81 MG PO SCH (07:03)
[2021-05-12] MEDS: FAMOTIDINE 20 MG TAB PO SCH (07:03)
[2021-05-12] MEDS: CLOPIDOGREL 75 MG TAB PO SCH (07:03)
[2021-05-12] MEDS: INSULIN ASPART (NovoLOG) 100 UNIT/ML VIAL SQ SCH ×2 (08:37→12:31)
[2021-05-12 11:56] LABS: Glucose,Whole Blood 190 mg/dL (75-99)
--- NOTE | 2021-05-12 13:17 | P.CONS ---
History of Present Illness - Reason for Consult Consult date: 05/12/21 wound care - History of Present Illness this is a 60-year-old pleasant female known to the wound care center with multiple ulcerations. Patient was instruct and/or possible and be patient. Original cause of wound was Trauma. The wound is currently classified as a Grade 2 wound with etiology of Diabetic Wound/Ulcer of the Lower Extremity and is located on the Right,Medial Toe Great. The wound measures 3.5cm length x 2.3cm width x 0.5cm depth; 6.322cm^2 area and 3.161cm^3 volume. There is Fat Layer (Subcutaneous Tissue) Exposed exposed. There is no tunneling or undermining noted. There is a medium amount of serous drainage noted. Foul odor after cleansing was noted. The wound margin is distinct with the outline attached to the wound base. There is no granulation within the wound bed. There is a large (67-100%) amount of necrotic tissue within the wound bed including Eschar and Adherent Slough. The periwound skin appearance exhibited: Callus, Maceration. The periwound skin appearance did not exhibit: Crepitus, Excoriation, Induration, Rash, Scarring, Dry/Scaly, Atrophie [place], Cyanosis, Ecchymosis, Erythema. Original cause of wound was Gradually Appeared. The wound is currently classified as a Full Thickness Without Exposed Support Structures wound with etiology of Venous Leg Ulcer and is located on the Medial,Superior Lower Leg. The wound measures 2cm length x 6.5cm width x 0.3cm depth; 10.21cm^2 area and 3.063cm^3 volume. There is Fat Layer (Subcutaneous Tissue) Exposed exposed. There is no tunneling or undermining noted. There is a large amount of serous drainage noted. Foul odor after cleansing was noted. The wound margin is indistinct and nonvisible. There is small (1-33%) red granulation within the wound bed. There is a large (67-100%) amount of necrotic tissue within the wound bed including Adherent Slough. The periwound skin appearance exhibited: Maceration, Hemosiderin Staining, Erythema. The periwound skin appearance did not exhibit: Callus, Crepitus, Excoriation, Induration, Rash, Scarring, Dry/Scaly, Atrophie [place], Cyanosis. The surrounding wound skin color is noted with erythema which is circumferential. Original cause of wound was Not Known. The wound is currently classified as a Category/Stage III wound with etiology of Pressure Ulcer and is located on the Right,Posterior Calcaneus. The wound measures 5.1cm length x 3.3cm width x 0.2cm depth; 13.218cm^2 area and 2.644cm^3 volume. There is Fat Layer (Subcutaneous Tissue) Exposed exposed. There is no tunneling or undermining noted. There is a large amount of serous drainage noted. The wound margin is thickened. There is no granulation within the wound bed. There is a large (67-100%) amount of necr otic tissue within the wound bed including Eschar and Adherent Slough. The periwound skin appearance exhibited: Maceration. The periwound skin appearance did not exhibit: Callus, Crepitus, Excoriation, Induration, Rash, Scarring, Dry/Scaly. Original cause of wound was Gradually Appeared. The wound is currently classified as a Full Thickness Without Exposed Support Structures wound with etiology of Venous Leg Ulcer and is located on the Right,Posterior Lower Leg. The wound measures 8.7cm length x 8cm width x 0.1cm depth; 54.664cm^2 area and 5.466cm^3 volume. The wound is limited to skin breakdown. There is no tunneling or undermining noted. There is a large amount of serous drainage noted. Foul odor after cleansing was noted. The wound margin is indistinct and nonvisible. There is medium (34-66%) pink granulation within the wound bed. There is a medium (34-66%) amount of necrotic tissue within the wound bed including Adherent Slough. The periwound skin appearance exhibited: Scarring, Maceration, Hemosiderin Staining, Erythema. The periwound skin appearance did not exhibit: Dry/Scaly. The surrounding wound skin color is noted with erythema which is circumferential. Review Of Systems: Constitutional: No fever, no chills, no night sweats. No weight change. No weakness, fatigue or lethargy. No daytime sleepiness. Integumentary:reports wounds, no lesions. No rash or pruritus. No unusual bruising. No change in hair or nails. Physical exam: General Appearance: Alert, cooperative, no distress, appears stated age. Skin: See HPI all other Skin color, texture, tugor normal, no rashes or lesions. Neurologic: Alert oriented x3 Assessment: 1. Diabetes mellitus with foot ulcer 2. Nonpressure chronic ulcer of other part of right foot with muscle exposure 2. Chronic hypertension with ulceration of the right lower extremity Plan: 1. Apply triad and ABDs to the ulcerations to right lower leg. apply honey alginate to the right heel and the right great toe ulceration. Wrap with rolled gauze and secure witwrap. Patient will return to the wound care center 05/15 at 1:30. DNP note has been reviewed and discussed with Dr. Solomon and the impression and plan of care has been directed as dictated. Past Medical History Past Medical History: Coronary Artery Disease (CAD), Heart Failure, COPD, Diabetes Mellitus, GERD/Reflux, Hyperlipidemia, Hypertension, Myocardial Infarction ([place]), Osteoarthritis (OA), Renal Disease, Rheumatoid Arthritis (RA), Skin Disorder, Vascular Disorder Additional Past Medical History / Comment(s): venous stasis ulcers, hx cellulitis, left AKA Oct 2020., IDDM type II, neuropathy, CKD stage III, Chronic back and bilateral leg pain, gallstones, R breast slightly enlarged., states rash on back of thighs from slide board used for transferring., states current wound right heel and smaller wounds on leg. Last Myocardial Infarction Date:: 2011 History of Any Multi-Drug Resistant Organisms: ESBL, MRSA Year Discovered:: 01/26/20 ESBL / 03/20/19 MRSA MDRO Source:: ESBL URINE/ MRSA BLOOD Past Surgical History: Section Additional Past Surgical History / Comment(s): 2012 CABG 2 vessel, D&C, C- sections x 2, bilateral lower leg/heels debrided., left above the knee amputation (Oct 2020). 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 HX OF 3PPD., In the past used to drink heavily but none since 1990 Past Drug Use History: None Reported - Past Family History Mother Additional Family Medical History / Comment(s): anuerysm Father Family Medical History: CVA/TIA, Diabetes Mellitus, Myocardial Infarction ([place]) Sister(s) Additional Family Medical History / Comment(s): one sister had "hole in her heart" and a kidney transplant and another sister had ms. Medications and Allergies Home Medications Medication Instructions Recorded Confirmed Type Carvedilol [Coreg] 12.5 mg PO BID 08/17/18 05/07/21 History Clopidogrel [Plavix] 75 mg PO DAILY 08/17/18 05/07/21 History Aspirin 81 mg PO DAILY chew 10/21/20 05/07/21 Rx Gabapentin [Neurontin] 300 mg PO HS #3 capsule 10/21/20 05/07/21 Rx traMADol-ACETAMINOP 37.5-325MG 1 each PO TID PRN 3 Days #9 tab 10/21/20 05/07/21 Rx [Ultracet] Allopurinol [Zyloprim] 100 mg PO DAILY 05/07/21 05/07/21 History INSULIN ASPART (NovoLOG) [NovoLOG 0 unit SQ AC-TID PRN 05/07/21 05/07/21 History (formulary)] Loperamide [Imodium] 2 mg PO QID PRN 05/07/21 05/07/21 History Pantoprazole Sodium 40 mg PO DAILY 05/07/21 05/07/21 History Symbicort Inhaler 1 dose INHALATION DIRECTED PRN 05/07/21 05/09/21 History Insulin Detemir (Levemir) [Levemir] 20 unit SQ HS #0 05/12/21 05/07/21 Rx Allergies Allergy/AdvReac Type Severity Reaction Status Date / Time vitamin E (d-alpha Allergy Unknown Rash/Hives Verified 05/07/21 12:01 tocopherol) collagenase Clostridium Allergy Rash/Hives Verified 05/07/21 12:00 histolyticu [From Santyl] latex Allergy Rash/Hives Verified 05/07/21 12:00 pollen extracts AdvReac Mild Itching Verified 05/07/21 12:00 dial soap Allergy Unknown Rash/Hives Uncoded 05/07/21 12:30 Physical Exam Vitals: Vital Signs Temp Pulse Resp BP Pulse Ox 05/12/21 08:00 98.1 F 75 18 105/67 97 05/12/21 02:00 98.4 F 76 18 103/65 97 05/11/21 20:00 98.3 F 73 18 101/61 98 05/11/21 13:57 98.3 F 71 16 111/70 97 Intake and Output 05/11/21 05/12/21 05/12/21 22:59 06:59 14:59 Output Total 300 800 Balance -300 -800 Output: Urine 300 800 Other: Voiding Method Diaper Incontinent Weight 100.2 kg Results CBC & Chem 7: 05/10/21 07:12 Labs: Abnormal Lab Results - Last 24 Hours (Table) 05/11/21 05/11/21 05/12/21 Range/Units 16:43 20:51 06:49 POC Glucose (mg/dL) 198 H 138 H 134 H (75-99) mg/dL 05/12/21 Range/Units 11:54 POC Glucose (mg/dL) 190 H (75-99) mg/dL Microbiology - Last 24 Hours (Table) 05/09/21 17:11 Gram Stain - Final Foot - Right Wound Culture - Final Assessment and Plan (1) Nonhealing ulcer of right lower extremity with necrosis of muscle Current Visit: Yes Status: Acute Code(s): L97.913 - NON-PRS CHRONIC ULC UNSP PRT OF R LOW LEG W NECROS MUSCLE SNOMED Code(s): 37810803 (2) Diabetic foot ulcer associated with type 2 diabetes mellitus, with fat layer exposed Current Visit: No Status: Acute Code(s): E11.621 - TYPE 2 DIABETES MELLITUS WITH FOOT ULCER; L97.502 - NON-PRS CHRONIC ULCER OTH PRT UNSP FOOT W FAT LAYER EXPOSED SNOMED Code(s): 9724334555514 (3) Venous stasis ulcer of right lower leg with edema of right lower leg Current Visit: No Status: Acute Code(s): I83.019 - VARICOSE VEINS OF RIGHT LOWER EXTREMITY W ULCER OF UNSP SITE; I83.891 - VARICOSE VEINS OF R LOW EXTREM WITH OTHER COMPLICATIONS; L97.919 - NON-PRS CHRONIC ULC UNSP PRT OF R LOW LEG W UNSP SEVERITY; R60.9 - EDEMA, UNSPECIFIED SNOMED Code(s): 50761720971157388
[2021-05-12] MEDS ORDERED: HYDROPHILIC CREAM 180 GM TUBE TOPICAL SCH (13:30)
[2021-05-12] MEDS: traMADol-ACETAMINOP 37.5-325MG 1 EACH TAB PO PRN (14:40)
[2021-05-12] MEDS: SODIUM CHLORIDE 0.9% 1,000 ML IV SCH (15:16)
[2021-05-12 15:33] VITALS: BP 118/68; PULSE 78; RESP 16; TEMP 98.3
--- NOTE | 2021-05-12 20:40 | P.PN ---
Progress Note - Text Progress Note Date: 05/12/21 Interval history: Patient is admitted to the hospital for debridement of the right lower extremity wound that was worsening from the wound care center. There was no obvious evidence of acute infection per vascular. Per vascular patient probably need amputation of the toe. Wound care team is following. Today: Feeling better. Has declined rehab. Oral intake good. Questions were answered. Review of systems: Was done for constitutional, cardiovascular, GI, pulmonary. relevant finding as above Current medications reviewed in today's electronic records On examination: VITAL SIGNS: 98.1, 75, 18, 105/67, 97% room air GENERAL APPEARANCE: Sitting up in bed, comfortable EYES: Pupils equal. Conjunctiva normal. NECK: JVD unable to assess,. Mass not palpable. RESPIRATORY: Respiratory effort increased. Diminished breath sounds. CARDIOVASCULAR: First and second sounds normal. Edema present. ABDOMEN: Soft. Liver and spleen not palpable. No tenderness. No mass palpable. PSYCHIATRY: Alert and oriented x3. Mood and affect normal. EXTREMITIES: Left above-knee amputation with dressing over the right lower extremity. INVESTIGATIONS, reviewed in the clinical context: Accu-Cheks: 134, 190 Assessment and plan: -Acute on chronic left lower extremity wounds from venous stasis ulcers, Debridement. Local wound care -Chronic kidney disease stage III from diabetic nephropathy and nephrosclerosis Follow renal function - obesity BMI 37.9 Weight loss measures. Follow-up with PCP -Diabetes mellitus type 2 Levemir 20 units -Hyperlipidemia -Coronary artery disease with prior history of bypass Aspirin, Coreg, Plavix -Diabetic peripheral neuropathy -Chronic low back pain from arthritis -Chronic medical debility Uses a motorized wheelchair -Secondary severe pulmonary hypertension Follow clinically -Moderate mitral and moderate to severe tricuspid regurgitation Follow clinically Patient to follow-up with a family doctor. Questions answered. BMP tomorrow
--- NOTE | 2021-05-13 16:39 | CDI ---
Documentation Clarification Form Date: 05/13/21 From: SERENA Goins Admit Date: 05/09/2021 05:34:00 PM Patient Name: Grecia Mendez Visit Number: [id number] Discharge Date: 05/12/2021 05:10:00 PM ATTENTION: The Clinical Documentation Specialists (CDI) and [facility] Coding Staff appreciate your assistance in clarifying documentation. Please respond to the clarification below the line at the bottom and electronically sign. The CDI & [facility] Coding staff will review the response and follow-up if needed. Please note: Queries are made part of the Legal Health Record. If you have any questions, please contact the author of this message via ITS. Dr. Izabel Scruggs A debridement of the right lower extremity, right great toe and right heel is documented on 05/09. Additional clarification regarding the procedure is requested. History/Risk Factors: Patient is admitted with non-healing wound of the right lower extremity, inability to maintain self care. Treatment: Initially using a surgical scrub brush the right lower extremity was debrided. There are multiple areas of wounds to the subcutaneous tissues and some to the dermal level. The curet was then utilized at the areas where the larger ones were the posterior calf and the wounds are clean down to good granulation tissue.Attention was then turned towards the great toe. There was significant necrotic tissue which was cut away with scissors. This did leave a wound down to the level of the bone which was exposed. The heel was then debrided. Please clarify the type and depth of debridement that was performed on the heel was: [ ] Excisional debridement (the removal of necrotic, devitalized tissue or slough by means of cutting away of tissue) [ ] Skin [ ] Subcutaneous tissue and fascia [ ] Muscle [ ] Joint [ ] Bone [ ] Non-excisional debridement (the removal of necrotic, devitalized tissue or slough by means of flushing, brushing, or washing. (Irrigation) [ ] Skin [ ] Subcutaneous tissue and fascia [ ] Muscle [ ] Joint [ ] Bone [ ] Other; please specify [ ] Unable to determine Five elements required for accurate and compliant documentation of a debridement: Technique used (e.g., excisional, excised, cutting, brushing, jet lavage etc.) Instrument(s) used (e.g., scalpel, curette, etc.) Nature of the tissue removed (e.g., necrotic, devitalized tissues, non-viable tissue, etc.) Appearance and size of the wound (e.g., down to fresh bleeding tissue, 7cm x 10cm, etc.) Depth of the debridement* (e.g., skin, subcutaneous tissue, fascia, muscle, bone, etc.) The toe was to bone, others were to subq, all were sharp ecxisional MTDD
== END 2021-05-12 17:10 | disposition home health service (06) | DRG 622 ==
LOC: OR 12:37 → 4SSUR 17:34
PROVIDERS: ADMIT Surgery; ATTEND Surgery
PROC: 0QBQ0ZZ Excision of Right Toe Phalanx, Open Approach (ICD-10-PCS; 2021-05-09)
PROC: 0JBQ0ZZ Excision of Right Foot Subcutaneous Tissue and Fascia, Open Approach (ICD-10-PCS; 2021-05-09)
PROC: 0JBN0ZZ Excision of Right Lower Leg Subcutaneous Tissue and Fascia, Open Approach (ICD-10-PCS; principal; 2021-05-09 14:45)
DX: E11.69 Type 2 diabetes mellitus with other specified complication (principal); L89.613 Pressure ulcer of right heel, stage 3; I96 Gangrene, not elsewhere classified; I50.22 Chronic systolic (congestive) heart failure; M86.8X7 Other osteomyelitis, ankle and foot; I13.0 Hypertensive heart and chronic kidney disease with heart failure and stage 1 through stage 4 chronic kidney disease, or unspecified chronic kidney disease; E11.52 Type 2 diabetes mellitus with diabetic peripheral angiopathy with gangrene; N17.9 Acute kidney failure, unspecified; E11.621 Type 2 diabetes mellitus with foot ulcer; N18.30 Chronic kidney disease, stage 3 unspecified; I25.10 Atherosclerotic heart disease of native coronary artery without angina pectoris; L97.519 Non-pressure chronic ulcer of other part of right foot with unspecified severity; J44.9 Chronic obstructive pulmonary disease, unspecified; E78.5 Hyperlipidemia, unspecified; G89.29 Other chronic pain; I08.1 Rheumatic disorders of both mitral and tricuspid valves; I83.018 Varicose veins of right lower extremity with ulcer other part of lower leg; M47.9 Spondylosis, unspecified; I27.20 Pulmonary hypertension, unspecified; R53.81 Other malaise; E87.5 Hyperkalemia; E11.22 Type 2 diabetes mellitus with diabetic chronic kidney disease; M06.9 Rheumatoid arthritis, unspecified; E11.42 Type 2 diabetes mellitus with diabetic polyneuropathy; E66.9 Obesity, unspecified; Z68.37 Body mass index [BMI] 37.0-37.9, adult; Z89.612 Acquired absence of left leg above knee; I25.2 Old myocardial infarction; Z99.3 Dependence on wheelchair; Z79.02 Long term (current) use of antithrombotics/antiplatelets; Z79.4 Long term (current) use of insulin; Z79.82 Long term (current) use of aspirin; Z79.899 Other long term (current) drug therapy; Z82.49 Family history of ischemic heart disease and other diseases of the circulatory system; Z83.3 Family history of diabetes mellitus; Z87.891 Personal history of nicotine dependence; Z95.1 Presence of aortocoronary bypass graft
CPT/HCPCS: 80048; 82565; 83036; 84132; 84520; 87070; 87075; 87205

== ENCOUNTER 2021-05-17 14:45 | Inpatient (IN) | payer MEDICARE, OTHER ==
[2021-05-17] MEDS ORDERED: SODIUM CHLORIDE 0.9% 1,000 ML IV STA (15:11)
--- NOTE | 2021-05-17 15:25 | ED ---
General Adult HPI - General Chief complaint: Fever Stated complaint: fever Time Seen by Provider: 05/17/21 14:58 Source: patient, EMS Mode of arrival: EMS - History of Present Illness Initial comments: Dictation was produced using Wow[employer] dictation software. please excuse any grammatical, word or spelling errors. Chief Complaint: 60-year-old female presents emergency Department with fever. History of Present Illness: This 60-year-old female she was transferred via EMS to our emergency department for fever. [facility] She was seen here proximally one week ago where she had debridement of large area of diabetic foot ulcers to the right lower extremity. Patient states her pain in her leg feels typical for usual pain. She states that she has a mild cough. Denies any shortness of breath. She does feel fev er. No abdominal pain. No dysuria. The ROS documented in this emergency department record has been reviewed and confirmed by me. Those systems with pertinent positive or negative responses have been documented in the HPI. All other systems are other negative and/or noncontributory. PHYSICAL EXAM: General Impression: Alert and oriented x3, not in acute distress HEENT: Normocephalic atraumatic, extra-ocular movements intact, pupils equal and reactive to light bilaterally, mucous membranes moist. Cardiovascular: Heart regular rate and rhythm Chest: Able to complete full sentences, no retractions, no tachypnea Abdomen: abdomen soft, non-tender, non-distended, no organomegaly Musculoskeletal: Amputated left lower extremity. Significant decubitus ulcers with malodorous discharge to the right lower extremity Motor: no focal deficits noted Neurological: CN II-XII grossly intact, no focal motor or sensory deficits noted Skin: Intact with no visualized rashes Psych: Normal affect and mood ED course: 60-year-old female presents to the emergency department for fever. Vital signs upon arrival shows temperature 103, rest of vital signs within acceptable limits. Patient is normotensive she does not appear ill at the bedside. She is febrile. She has no obvious localizing symptoms or signs. Laboratory evaluation obtained. No leukocytosis. Hemoglobin 6.4. Metabolic panel shows sodium 1:30, potassium of 5.3, non-gap acidosis, elevated renal markers. For panel viral PCR is negative. Group A strep is negative. Chest x-ray is nonacute. Tib-fib x- ray is nonacute. Lower extremity CT does not show any drainable fluid collections or free air. At this point patient clinical presentation concerning for significant infection. Pending blood cultures. Patient given thank demarcus and Katarina. She'll be admitted for SIRS/sepsis. She is normotensive with no left acidosis. Case will be admitted to Dr. Quinones. Infectious disease on consult. - Related Data Home Medications Medication Instructions Recorded Confirmed Carvedilol [Coreg] 12.5 mg PO BID 08/17/18 05/17/21 Clopidogrel [Plavix] 75 mg PO DAILY 08/17/18 05/17/21 INSULIN ASPART (NovoLOG) [NovoLOG See Protocol SQ AC-TID PRN 05/07/21 05/17/21 (formulary)] Loperamide [Imodium] 2 mg PO BID PRN 05/07/21 05/17/21 Pantoprazole Sodium 40 mg PO DAILY 05/07/21 05/17/21 Insulin Detemir (Levemir) [Levemir] 20 unit SQ DAILY PRN 05/17/21 05/17/21 hydrOXYzine HCL [Atarax] 25 mg PO TID PRN 05/17/21 05/17/21 traMADol-ACETAMINOP 37.5-325MG 1 tab PO TID PRN 05/17/21 05/17/21 [Ultracet] Previous Rx's Medication Instructions Recorded Gabapentin [Neurontin] 300 mg PO HS #3 capsule 10/21/20 Allergies Allergy/AdvReac Type Severity Reaction Status Date / Time vitamin E (d-alpha Allergy Unknown Rash/Hives Verified 05/17/21 17:29 tocopherol) collagenase Clostridium Allergy Rash/Hives Verified 05/17/21 17:29 histolyticu [From Santyl] latex Allergy Rash/Hives Verified 05/17/21 17:29 pollen extracts AdvReac Mild Itching Verified 05/17/21 17:29 dial soap Allergy Unknown Rash/Hives Uncoded 05/07/21 12:30 Review of Systems ROS Statement: Those systems with pertinent positive or pertinent negative responses have been documented in the HPI. ROS Other: All systems not noted in ROS Statement are negative. Past Medical History Past Medical History: Coronary Artery Disease (CAD), Heart Failure, COPD, Diabetes Mellitus, GERD/Reflux, Hyperlipidemia, Hypertension, Myocardial Infarction ([place]), Osteoarthritis ([place]), Renal Disease, Rheumatoid Arthritis ([place]), Skin Disorder, Vascular Disorder Additional Past Medical History / Comment(s): venous stasis ulcers, hx cellulitis, 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 Last Myocardial Infarction Date:: 2011 History of Any Multi-Drug Resistant Organisms: ESBL, MRSA Date of last positivie culture/infection: 01/26/20 ESBL / 03/20/19 MRSA MDRO Source:: ESBL URINE/ MRSA BLOOD Past Surgical History: Section Additional Past Surgical History / Comment(s): 2011 CABG 2 vessel, D&C, C- sections x 2, bilateral lower leg/heels debrided., left above the knee amputa tion (Oct 2020). Past Anesthesia/Blood Transfusion Reactions: Previous Problems w/ Anesthesia Additional Past Anesthesia/Blood Transfusion Reaction / Comment(s): states fluctuation in heart rate., clausterphobia Past Psychological History: No Psychological Hx Reported Smoking Status: Former smoker Past Alcohol Use History: None Reported Past Drug Use History: None Reported - Past Family History Mother Additional Family Medical History / Comment(s): anuerysm Father Family Medical History: CVA/TIA, Diabetes Mellitus, Myocardial Infarction ([place]) Sister(s) Additional Family Medical History / Comment(s): one sister had "hole in her heart" and a kidney transplant and another sister had ms. Course Vital Signs 05/17/21 05/17/21 05/17/21 14:50 16:56 18:35 Temperature 103 F H 102.2 F H Pulse Rate 87 94 86 Respiratory 20 20 20 Rate Blood Pressure 125/62 111/57 116/60 O2 Sat by Pulse 99 99 97 Oximetry Medical Decision Making - Lab Data Result diagrams: 05/17/21 16:19 05/17/21 16:19 Lab Results 05/17/21 05/17/21 05/17/21 Range/Units 16:19 16:19 16:19 WBC 10.2 (3.8-10.6) k/uL RBC 2.63 L (3.80-5.40) m/uL Hgb 6.4 L* (11.4-16.0) gm/dL Hct 21.7 L (34.0-46.0) % MCV 82.5 (80.0-100.0) fL MCH 24.5 L (25.0-35.0) pg MCHC 29.7 L (31.0-37.0) g/dL RDW 16.2 H (11.5-15.5) % Plt Count 246 (150-450) k/uL MPV 8.0 Neutrophils % 90 % Lymphocytes % 2 % Monocytes % 6 % Eosinophils % 0 % Basophils % 0 % Neutrophils # 9.2 H (1.3-7.7) k/uL Lymphocytes # 0.2 L (1.0-4.8) k/uL Monocytes # 0.6 (0-1.0) k/uL Eosinophils # 0.0 (0-0.7) k/uL Basophils # 0.0 (0-0.2) k/uL Hypochromasia Marked Anisocytosis Slight Sodium (137-145) mmol/L Potassium (3.5-5.1) mmol/L Chloride (98-107) mmol/L Carbon Dioxide (22-30) mmol/L Anion Gap mmol/L BUN (7-17) mg/dL Creatinine (0.52-1.04) mg/dL Est GFR (CKD-EPI)AfAm (>60 ml/min/1.73 sqM) Est GFR (CKD-EPI)NonAf (>60 ml/min/1.73 sqM) Glucose (74-99) mg/dL Plasma Lactic Acid Sylvester (0.7-2.0) mmol/L Calcium (8.4-10.2) mg/dL Influenza Type A (PCR) Not Detected (Not Detectd) Influenza Type B (PCR) Not Detected (Not Detectd) RSV (PCR) Not Detected (Not Detectd) SARS-CoV-2 (PCR) Not Detected (Not Detectd) Group A Strep Rapid Negative (Negative) 05/17/21 05/17/21 Range/Units 16:19 16:19 WBC (3.8-10.6) k/uL RBC (3.80-5.40) m/uL Hgb (11.4-16.0) gm/dL Hct (34.0-46.0) % MCV (80.0-100.0) fL MCH (25.0-35.0) pg MCHC (31.0-37.0) g/dL RDW (11.5-15.5) % Plt Count (150-450) k/uL MPV Neutrophils % % Lymphocytes % % Monocytes % % Eosinophils % % Basophils % % Neutrophils # (1.3-7.7) k/uL Lymphocytes # (1.0-4.8) k/uL Monocytes # (0-1.0) k/uL Eosinophils # (0-0.7) k/uL Basophils # (0-0.2) k/uL Hypochromasia Anisocytosis Sodium 130 L (137-145) mmol/L Potassium 5.3 H (3.5-5.1) mmol/L Chloride 103 (98-107) mmol/L Carbon Dioxide 17 L (22-30) mmol/L Anion Gap 10 mmol/L BUN 80 H (7-17) mg/dL Creatinine 2.75 H (0.52-1.04) mg/dL Est GFR (CKD-EPI)AfAm 21 (>60 ml/min/1.73 sqM) Est GFR (CKD-EPI)NonAf 18 (>60 ml/min/1.73 sqM) Glucose 182 H (74-99) mg/dL Plasma Lactic Acid Sylvester 1.5 (0.7-2.0) mmol/L Calcium 7.8 L (8.4-10.2) mg/dL Influenza Type A (PCR) (Not Detectd) Influenza Type B (PCR) (Not Detectd) RSV (PCR) (Not Detectd) SARS-CoV-2 (PCR) (Not Detectd) Group A Strep Rapid (Negative) Disposition Clinical Impression: SIRS (systemic inflammatory response syndrome) Disposition: ADMITTED IP TO THIS HOSP Condition: Fair
[2021-05-17] MEDS ORDERED: ACETAMINOPHEN TAB 500 MG TAB PO STA (16:37)
[2021-05-17] MEDS ORDERED: VANCOMYCIN IV PER PHARMACY 1 EACH MISC MISCELLANE PRN (16:38)
[2021-05-17] MEDS ORDERED: PIPERACILLIN-TAZOBACTAM 3.375 GM in SODIUM CHLORIDE 0.9% 100 ML IVPB STA (16:38)
[2021-05-17 16:57] LABS: Anisocytosis Slight; Basophils % (A) 0 %; Eosinophils % (A) 0 %; HCT 21.7 % (34.0-46.0); Hypochromasia Marked; Lymphocytes # (A) 0.2 k/uL (1.0-4.8); Lymphocytes % (A) 2 %; MCH 24.5 pg (25.0-35.0); MCHC 29.7 g/dL (31.0-37.0); MCV 82.5 fL (80.0-100.0); Monocytes # (A) 0.6 k/uL (0-1.0); Monocytes % (A) 6 %; Neutrophils # (A) 9.2 k/uL (1.3-7.7); Neutrophils % (A) 90 %; Platelet Count 246 k/uL (150-450); RBC 2.63 m/uL (3.80-5.40); RDW 16.2 % (11.5-15.5); WBC 10.2 k/uL (3.8-10.6)
[2021-05-17] MEDS ORDERED: VANCOMYCIN 1,750 MG in SODIUM CHLORIDE 0.9% 500 ML 500 ML IVPB ONE (17:00)
--- NOTE | 2021-05-17 17:07 | XR ---
EXAMINATION TYPE: XR chest 1V portable DATE OF EXAM: 05/17/2021 COMPARISON: 03/21/2019 HISTORY: Cough TECHNIQUE: FINDINGS: There is no heart failure nor confluent pneumonic infiltrate. Heart appears enlarged. There are sternal wires. Costophrenic angles are fairly clear. IMPRESSION: No active cardiopulmonary disease. There is clearing of the mild pulmonary congestion com pared to old exam.
[2021-05-17 17:13] LABS: Calcium 7.8 mg/dL (8.4-10.2); Potassium 5.3 mmol/L (3.5-5.1)
[2021-05-17 17:30] LABS: HGB 6.4 gm/dL (11.4-16.0)
--- NOTE | 2021-05-17 18:01 | XR ---
EXAMINATION TYPE XR tibia fibula RT DATE OF EXAM: 05/17/2021 COMPARISON: 2 views HISTORY: Necrotizing fasciitis. TECHNIQUE: 5 views FINDINGS: there is soft tissue swelling around the lower leg and knee. I see no focal bone destruction.: There is osteopenia. There is narrowing of the medial joint space of the knee. There is see no sign o f soft tissue air. There is vascular calcification. There is plantar and Achilles calcaneal spurring. IMPRESSION: No acute bony abnormality. No sign of osteomyelitis. Arthritic narrowing of the medial yoel int space of the knee.
[2021-05-17] MEDS ORDERED: NALOXONE 0.4 MG/ML 1 ML VIAL IV PRN (18:19)
[2021-05-17] MEDS ORDERED: ONDANSETRON 4 MG/2 ML VIAL IVP PRN (18:19)
--- NOTE | 2021-05-17 19:08 | CT ---
EXAMINATION TYPE: CT lower extremity RT wo con DATE OF EXAM: 05/17/2021 COMPARISON: None HISTORY: Suspect necrotizing fasciitis. CT DLP: 259.3 mGycm Automated exposure control for dose reduction was used. Images obtained from the distal femur to the bottom of the foot without contrast. There is diffuse subcutaneous edema around the entire lower thigh and lower leg. I see no discrete dr ainable fluid collection. There is narrowing of the medial joint space of the knee. There is osteopen ia. There is plantar calcaneal spur formation. I see no focal bone destruction. There is no evidence of a fracture. There is no soft tissue air. There is muscle atrophy. IMPRESSION: Subcutaneous edema. No evidence of an abscess. No evidence of osteomyelitis.
[2021-05-17] MEDS ORDERED: LACTULOSE 20 GM/30 ML CUP PO PRN (22:32)
[2021-05-17] MEDS ORDERED: MAG HYDROX/AL HYDROX/SIMETH 30 ML CUP PO PRN (22:32)
[2021-05-17] MEDS ORDERED: MAGNESIUM HYDROXIDE 2,400 MG/10 ML CUP PO PRN (22:32)
[2021-05-17] MEDS ORDERED: ALPRAZolam 0.25 MG TAB PO PRN (22:32)
[2021-05-17] MEDS ORDERED: MELATONIN 3 MG TABLET PO PRN (22:32)
[2021-05-18 00:44] LABS: Glucose,Whole Blood 150 mg/dL (75-99)
[2021-05-18] MEDS: SODIUM CHLORIDE 0.9% 1,000 ML IV SCH ×3 (00:44→22:44)
[2021-05-18] MEDS: INSULIN ASPART (NovoLOG) 100 UNIT/ML VIAL SQ SCH ×5 (00:48→21:36)
[2021-05-18 03:08] LABS: Anisocytosis Slight; Basophils % (A) 0 %; Eosinophils # (A) 0.1 k/uL (0-0.7); Eosinophils % (A) 1 %; HCT 21.4 % (34.0-46.0); Hypochromasia Marked; Lymphocytes # (A) 0.3 k/uL (1.0-4.8); Lymphocytes % (A) 4 %; MCV 83.4 fL (80.0-100.0); Mean Platelet Volume 8.6; Monocytes # (A) 0.4 k/uL (0-1.0); Monocytes % (A) 5 %; Neutrophils # (A) 7.3 k/uL (1.3-7.7); Neutrophils % (A) 87 %; Platelet Count 241 k/uL (150-450); RBC 2.57 m/uL (3.80-5.40); RDW 16.3 % (11.5-15.5); WBC 8.4 k/uL (3.8-10.6)
[2021-05-18 03:20] LABS: HGB 6.4 gm/dL (11.4-16.0)
[2021-05-18 03:21] LABS: African American GFR (CKD) 20 (>60 ml/min/1.73 sqM); Anion Gap 9 mmol/L; Blood Urea Nitrogen 80 mg/dL (7-17); Calcium 7.6 mg/dL (8.4-10.2); Carbon Dioxide 17 mmol/L (22-30); Chloride 105 mmol/L (98-107); Glucose 108 mg/dL (74-99); Non-African American GFR(CKD) 17 (>60 ml/min/1.73 sqM); Potassium 4.9 mmol/L (3.5-5.1); Sodium 131 mmol/L (137-145)
[2021-05-18 07:28] LABS: Glucose,Whole Blood 138 mg/dL (75-99)
[2021-05-18 10:33] LABS: Amorphous Sediment,Urine Rare /hpf; Appearance,Urine Cloudy (Clear); Bacteria,Urine Many /hpf; Bilirubin,Urine Negative (Negative); Blood,Urine Negative (Negative); Color,Urine Yellow; Glucose,Urine (UA) Negative (Negative); Ketones,Urine Negative (Negative); Leukocyte Esterase,Urine Large (Negative); Mucus,Urine Rare /hpf; Nitrite,Urine Negative (Negative); Protein,Urine Trace (Negative); RBC,Urine 3 /hpf (0-5); Squamous Epithelial Cell,Urine 12 /hpf (0-4); Urobilinogen,Urine <2.0 mg/dL (<2.0); WBC,Urine 11 /hpf (0-5)
[2021-05-18 11:46] LABS: Glucose,Whole Blood 157 mg/dL (75-99)
[2021-05-18] MEDS: SODIUM BICARBONATE TAB 650 MG TAB PO SCH ×3 (13:10→21:36)
[2021-05-18] MEDS: traMADol-ACETAMINOP 37.5-325MG 1 EACH TAB PO PRN (13:10)
--- NOTE | 2021-05-18 15:59 | P.HPIM ---
History of Present Illness H&P Date: 05/18/21 Chief Complaint: Chills History of presenting complaint: This is a pleasant 60-year-old patient, visiting physicians Dr. Garcia. Chronic stable medical conditions include (above-knee amputation, chronic wound on the right lower extremity being followed by Dr. Scruggs from vascular, at the wound care center by Lauren, and also has home care. Chronic kidney disease stage III, diabetes mellitus type 2, hyperlipidemia, coronary artery disease with bypass, diabetic peripheral neuropathy, lower back pain from arthritis, uses a motorized wheelchair at baseline, severe secondary pulmonary hypertension, mitral and tricuspid regurgitation. She was just discharged from the hospital about 5 days ago following debridement of the right lower extremity. Suggestion was made for amputation of the toe. Patient was seen at the wound care center on this . Patient at home now starts feeling weak diet chills shaky. Decreased appetite. Found to have a fever in the ER, admitted with sepsis. Patient feeling tired and rundown. Per evaluation of ER physician no evidence of compartment syndrome. Review of systems: GEN.: Fever and chills, decreased appetite EYES: None HEENT: None NECK: None RESPIRATORY: None CARDIOVASCULAR: None GASTROINTESTINAL: None GENITOURINARY: None MUSCULOSKELETAL: Right lower extremity wounds LYMPHATICS: None HEMATOLOGICAL: None PSYCHIATRY: None NEUROLOGICAL: None Past medical history to include: Left above-knee amputation, chronic wound to the right lower extremity, chronic kidney disease stage III, diabetes mellitus, hyperlipidemia, coronary artery disease with bypass, diabetic peripheral neuropathy, lower back pain from ar thritis, GERD venous stasis ulcers, peripheral neuropathy, Social history: Lives alone. Motorized wheelchair. Home care. She was drinking heavily of April 1991. Smoking up to 3 packs a day up to 2011. Family history: Diabetes, [place], and resume, stroke Physical examination: VITAL SIGNS: 103, 87, 20, 125/62, 99% room air GENERAL: BMI 43.8, laying in bed, awake a bit tired. EYES: Pupils equal. Conjunctiva normal. HEENT: External appearance of nose and ears normal, oral cavity grossly normal. NECK: JVD not raised; masses not palpable. HEART: First and second heart sounds are normal; no edema. LUNGS: Respiratory rate increased; decreased breath sounds. ABDOMEN: Soft, nontender, liver spleen not palpable, no masses palpable. PSYCH: Alert and oriented x3; mood and affect normal. NEUROLOGICAL: Cranial nerves grossly intact; no facial asymmetry, power and sensation grossly intact. EXTREMITIES: Left above-knee amputation. Right lower extremity wounds more detail in nursing chart LYMPHATICS: No lymph nodes palpable in the axilla and neck INVESTIGATIONS, reviewed in the clinical context: WBC 8.4 hemoglobin 6.4 platelets 241 potassium 4.9 BUN 18 creatinine 2.88 UA positive for leukoesterase, WBC, squamous epithelial cells Influenza type A, type B, sour [place] PCR: Non-not detected Chest x-ray film: No infiltrates CT right lower extremity without contrast: Subcutis edema. No evidence of abscess. Previous studies: 2-D echocardiogram: Moderate concentric LVH. EF 45-50%. Moderate to severe tricuspid regurgitation. Severe pulmonary hypertension. Assessment and plan: -Sepsis from infected right lower extremity wound -Acute on chronic right lower extremity wounds from venous stasis ulcers, [place] recent assessment by Dr. Scruggs from vascular patient will need amputation of the toe. -Chronic kidney disease stage III from diabetic nephropathy and nephrosclerosis Follow renal function - Morbid obesity BMI 43.8 Weight loss measures. Follow-up with PCP -Diabetes mellitus type 2 Levemir 20 units. Follow Accu-Cheks -Coronary artery disease with prior history of bypass Aspirin, Coreg, Plavix -Diabetic peripheral neuropathy -Chronic low back pain from arthritis Tylenol as needed -Chronic medical debility Uses a motorized wheelchair -Secondary severe pulmonary hypertension Follow clinically -Moderate mitral and moderate to severe tricuspid regurgitation Follow clinically Patient started on vancomycin the ER. We'll change to daptomycin review of renal function. Blood cultures were done. Follow Accu-Chek. Consultation to vascular surgery and ID. Care was discussed with the patient. Questions answered. Given the complexity and severity of patient's condition expect the patient to be in the hospital at least for 2 overnights Past Medical History Past Medical History: Coronary Artery Disease (CAD), Heart Failure, COPD, Diabetes Mellitus, GERD/Reflux, Hyperlipidemia, Hypertension, Myocardial Infarction ([place]), Osteoarthritis (OA), Renal Disease, Rheumatoid Arthritis (RA), Skin Disorder, Vascular Disorder Additional Past Medical History / Comment(s): venous stasis ulcers, hx cellulitis, 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 Last Myocardial Infarction Date:: 2011 History of Any Multi-Drug Resistant Organisms: ESBL, MRSA Date of last positivie culture/infection: 01/26/20 ESBL / 03/20/19 MRSA MDRO Source:: ESBL URINE/ MRSA BLOOD Past Surgical History: Section Additional Past Surgical History / Comment(s): 2011 CABG 2 vessel, D&C, C-s ections x 2, bilateral lower leg/heels debrided., left above the knee amputation (Oct 2020). 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 Denies tobacco smoking or alcohol use. Medically disabled. No experience or international travel. No animals in the home. She has a nebulizer and a glucometer. She has VNA aide 3 days a week for cleaning/showering. Comes to wound center for leg wounds. Smoking Status: Former smoker Past Alcohol Use History: None Reported Additional Past Alcohol Use History / Comment(s): stopped smoking in 2011. HX OF 3PPD., In the past used to drink heavily but none since 1990 Past Drug Use History: None Reported - Past Family History Mother Additional Family Medical History / Comment(s): anuerysm Father Family Medical History: CVA/TIA, Diabetes Mellitus, Myocardial Infarction ([place]) Sister(s) Additional Family Medical History / Comment(s): one sister had "hole in her heart" and a kidney transplant and another sister had ms. Medications and Allergies Home Medications Medication Instructions Recorded Confirmed Type Carvedilol [Coreg] 12.5 mg PO BID 08/17/18 05/17/21 History Clopidogrel [Plavix] 75 mg PO DAILY 08/17/18 05/17/21 History Gabapentin [Neurontin] 300 mg PO HS #3 capsule 10/21/20 05/17/21 Rx INSULIN ASPART (NovoLOG) [NovoLOG See Protocol SQ AC-TID PRN 05/07/21 05/17/21 History (formulary)] Loperamide [Imodium] 2 mg PO BID PRN 05/07/21 05/17/21 History Pantoprazole Sodium 40 mg PO DAILY 05/07/21 05/17/21 History Insulin Detemir (Levemir) [Levemir] 20 unit SQ DAILY PRN 05/17/21 05/17/21 History hydrOXYzine HCL [Atarax] 25 mg PO TID PRN 05/17/21 05/17/21 History traMADol-ACETAMINOP 37.5-325MG 1 tab PO TID PRN 05/17/21 05/17/21 History [Ultracet] Allergies Allergy/AdvReac Type Severity Reaction Status Date / Time vitamin E (d-alpha Allergy Unknown Rash/Hives Verified 05/17/21 17:29 tocopherol) collagenase Clostridium Allergy Rash/Hives Verified 05/17/21 17:29 histolyticu [From Santyl] latex Allergy Rash/Hives Verified 05/17/21 17:29 pollen extracts AdvReac Mild Itching Verified 05/17/21 17:29 dial soap Allergy Unknown Rash/Hives Uncoded 05/07/21 12:30 Physical Exam Vitals: Vital Signs Temp Pulse Pulse Resp BP BP Pulse Ox 05/18/21 08:00 98.4 F 81 18 111/60 99 05/18/21 01:29 98.0 F 78 14 115/66 98 05/17/21 23:18 74 18 91/51 96 05/17/21 21:00 77 20 91/55 98 05/17/21 20:08 100.1 F H 80 14 102/55 94 L 05/17/21 18:35 86 20 116/60 97 05/17/21 16:56 102.2 F H 94 20 111/57 99 05/17/21 14:50 103 F H 87 20 125/62 99 Intake and Output 05/17/21 05/18/21 05/18/21 22:59 06:59 14:59 Other: Voiding Method External Catheter # Voids 2 Weight 115.666 kg Results CBC & Chem 7: 05/18/21 02:41 05/18/21 02:38 Labs: Abnormal Lab Results - Last 24 Hours (Table) 05/17/21 05/17/2105/17/21 Range/Units 16:19 16:19 21:46 RBC 2.63 L (3.80-5.40) m/uL Hgb 6.4 L* (11.4-16.0) gm/dL Hct 21.7 L (34.0-46.0) % MCH 24.5 L (25.0-35.0) pg MCHC 29.7 L (31.0-37.0) g/dL RDW 16.2 H (11.5-15.5) % Neutrophils # 9.2 H (1.3-7.7) k/uL Lymphocytes # 0.2 L (1.0-4.8) k/uL Sodium 130 L (137-145) mmol/L Potassium 5.3 H (3.5-5.1) mmol/L Carbon Dioxide 17 L (22-30) mmol/L BUN 80 H (7-17) mg/dL Creatinine 2.75 H (0.52-1.04) mg/dL Glucose 182 H (74-99) mg/dL POC Glucose (mg/dL) (75-99) mg/dL Calcium 7.8 L (8.4-10.2) mg/dL Urine Appearance (Clear) Urine Protein (Negative) Ur Leukocyte Esterase (Negative) Urine WBC (0-5) /hpf Ur Squamous Epith Cells (0-4) /hpf Amorphous Sediment (None) /hpf Urine Bacteria (None) /hpf Urine Mucus (None) /hpf Crossmatch See Detail 05/18/21 05/18/21 05/18/21 Range/Units 00:42 02:38 02:41 RBC 2.57 L (3.80-5.40) m/uL Hgb 6.4 L* (11.4-16.0) gm/dL Hct 21.4 L (34.0-46.0) % MCH (25.0-35.0) pg MCHC 30.0 L (31.0-37.0) g/dL RDW 16.3 H (11.5-15.5) % Neutrophils # (1.3-7.7) k/uL Lymphocytes # 0.3 L (1.0-4.8) k/uL Sodium 131 L (137-145) mmol/L Potassium (3.5-5.1) mmol/L Carbon Dioxide 17 L (22-30) mmol/L BUN 80 H (7-17) mg/dL Creatinine 2.88 H (0.52-1.04) mg/dL Glucose 108 H (74-99) mg/dL POC Glucose (mg/dL) 150 H (75-99) mg/dL Calcium 7.6 L (8.4-10.2) mg/dL Urine Appearance (Clear) Urine Protein (Negative) Ur Leukocyte Esterase (Negative) Urine WBC (0-5) /hpf Ur Squamous Epith Cells (0-4) /hpf Amorphous Sediment (None) /hpf Urine Bacteria (None) /hpf Urine Mucus (None) /hpf Crossmatch 05/18/21 05/18/21 Range/Units 07:26 10:14 RBC (3.80-5.40) m/uL Hgb (11.4-16.0) gm/dL Hct (34.0-46.0) % MCH (25.0-35.0) pg MCHC (31.0-37.0) g/dL RDW (11.5-15.5) % Neutrophils # (1.3-7.7) k/uL Lymphocytes # (1.0-4.8) k/uL Sodium (137-145) mmol/L Potassium (3.5-5.1) mmol/L Carbon Dioxide (22-30) mmol/L BUN (7-17) mg/dL Creatinine (0.52-1.04) mg/dL Glucose (74-99) mg/dL POC Glucose (mg/dL) 138 H (75-99) mg/dL Calcium (8.4-10.2) mg/dL Urine Appearance Cloudy H (Clear) Urine Protein Trace H (Negative) Ur Leukocyte Esterase Large H (Negative) Urine WBC 11 H (0-5) /hpf Ur Squamous Epith Cells 12 H (0-4) /hpf Amorphous Sediment Rare H (None) /hpf Urine Bacteria Many H (None) /hpf Urine Mucus Rare H (None) /hpf Crossmatch Microbiology - Last 24 Hours (Table) 05/17/21 16:19 Group A Strep Throat Culture - Preliminary Throat Thrombosis Risk Factor Assmnt - Choose All That Apply Any of the Below Risk Factors Present?: Yes Each Factor Represents 1 point: Heart failure (<1month), Obesity (BMI >25), Sepsis (< 1month) Other Risk Factors: Yes Each Risk Factor Represents 3 Points: Age 75 years or older Thrombosis Risk Factor Assessment Total Risk Factor Score: 6 Thrombosis Risk Factor Assessment Level: High Risk
[2021-05-18] MEDS: carvediloL 3.125 MG TAB PO SCH (16:28)
[2021-05-18] MEDS ORDERED: DAPTOmycin 500 MG in SODIUM CHLORIDE 0.9% 50 ML IVPB SCH (17:00)
[2021-05-18 17:02] LABS: Glucose,Whole Blood 131 mg/dL (75-99)
[2021-05-18] MEDS ORDERED: INSULIN ASPART (NovoLOG) 100 UNIT/ML VIAL SQ SCH (17:30)
[2021-05-18] MEDS ORDERED: VANCOMYCIN 1,750 MG in SODIUM CHLORIDE 0.9% 500 ML 500 ML IVPB ONE (18:00)
[2021-05-18 20:27] LABS: Glucose,Whole Blood 146 mg/dL (75-99)
[2021-05-18] MEDS ORDERED: INSULIN DETEMIR (LEVEMIR) 100 UNIT/ML SYR SQ SCH (21:00)
[2021-05-18] MEDS: GABAPENTIN 300 MG CAP PO SCH (21:36)
[2021-05-18] MEDS: CALCIUM CARBONATE 500 MG CHEWABLE PO PRN (22:46)
[2021-05-19] MEDS: SODIUM CHLORIDE 0.9% 1,000 ML IV SCH ×2 (02:04→21:50)
[2021-05-19] MEDS: MEROPENEM 500 MG in SODIUM CHLORIDE 0.9% 100 ML IVPB SCH ×3 (02:05→19:36)
[2021-05-19 05:05] LABS: Anisocytosis Slight; Basophils % (A) 0 %; Eosinophils # (A) 0.1 k/uL (0-0.7); Eosinophils % (A) 1 %; HCT 23.6 % (34.0-46.0); HGB 7.1 gm/dL (11.4-16.0); Hypochromasia Marked; Lymphocytes # (A) 0.4 k/uL (1.0-4.8); Lymphocytes % (A) 5 %; MCH 25.2 pg (25.0-35.0); MCHC 30.3 g/dL (31.0-37.0); MCV 83.2 fL (80.0-100.0); Mean Platelet Volume 8.7; Monocytes # (A) 0.7 k/uL (0-1.0); Monocytes % (A) 7 %; Neutrophils # (A) 7.7 k/uL (1.3-7.7); Neutrophils % (A) 83 %; Platelet Count 231 k/uL (150-450); RBC 2.84 m/uL (3.80-5.40); RDW 16.3 % (11.5-15.5); WBC 9.3 k/uL (3.8-10.6)
[2021-05-19 05:17] LABS: African American GFR (CKD) 21 (>60 ml/min/1.73 sqM); Anion Gap 7 mmol/L; Blood Urea Nitrogen 78 mg/dL (7-17); Calcium 7.9 mg/dL (8.4-10.2); Carbon Dioxide 18 mmol/L (22-30); Chloride 107 mmol/L (98-107); Non-African American GFR(CKD) 18 (>60 ml/min/1.73 sqM); Potassium 4.7 mmol/L (3.5-5.1); Sodium 132 mmol/L (137-145)
[2021-05-19 05:20] LABS: Glucose 35 mg/dL (74-99)
[2021-05-19 05:25] LABS: Glucose,Whole Blood 44 mg/dL (75-99)
[2021-05-19 05:42] LABS: Glucose,Whole Blood 56 mg/dL (75-99)
[2021-05-19 06:03] LABS: Glucose,Whole Blood 83 mg/dL (75-99)
[2021-05-19 06:53] LABS: Glucose,Whole Blood 95 mg/dL (75-99)
--- NOTE | 2021-05-19 07:30 | P.CONS ---
History of Present Illness - Reason for Consult Consult date: 05/18/21 sepsis Requesting physician: Saul Baez - Chief Complaint worsening pain to the right leg 1 day - History of Present Illness Patient is a 60-year female with a past medical history significant for chronic right lower extremity venous stasis ulcer in this patient who did have a history of left [id number] amputation in October 2020 patient was recently admitted at this facility for debridement of the right lower extremity wound patient was subsequently discharged home on no antibiotics patient now presented back to the hospital within a week with increasing pain in her leg patient describes the pain to be more of a sharp in nature intensity is almost 6-7 out of 10 had no radiation is minimal drainage from them patient did have some chills but denies high-grade fever with the symptoms patient was evaluated by the ER physician on arrival to the ER patient did have a fever of 103 F did have mild tachycardia patient did have a normal white count also have a low hemoglobin of 6.4 BUN and creatinine are elevated urine was mildly positive [place] PCR was negative patient did have a chest x-ray no active cardiopulmonary disease x-rays of the tibia-fibula no acute bone abnormality patient did have a CT of the leg subcutaneous edema no evidence of any abscess or osteomyelitis patient was admitted to the hospital started on daptomycin blood culture subsequently came back positive for gram-negative rods infectious disease was consulted for further management of antibiotic therapy. Review of Systems Positive point has been mentioned in the HPI rest of the systems are negative Past Medical History Past Medical History: Coronary Artery Disease (CAD), Heart Failure, COPD, Diabetes Mellitus, GERD/Reflux, Hyperlipidemia, Hypertension, Myocardial Infarction ([place]), Osteoarthritis (OA), Renal Disease, Rheumatoid Arthritis (RA), Skin Disorder, Vascular Disorder Additional Past Medical History / Comment(s): venous stasis ulcers, hx cellulitis, left AKA Oct 2020., IDDM type II, neuropathy, CKD stage III, Chronic back and bilateral leg pain, gallstones, R breast slightly enlarged., states rash on back of thighs from slide board used for transferring., states current wound right heel and smaller wounds on leg.slightly enlarged-punch skin bx negat bharati. 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 Denies tobacco smoking or alcohol use. Medically disabled. No experience or international travel. No animals in the home. She has a nebulizer and a glucometer. She has [employer] aide 3 days a week for cleaning/showering. Comes to wound center for leg wounds. Smoking Status: Former smoker Past Alcohol Use History: None Reported Additional Past Alcohol Use History / Comment(s): stopped smoking in 2011. HX OF 3PPD., In the past used to drink heavily but none since 1990 Past Drug Use History: None Reported - Past Family History Mother Additional Family Medical History / Comment(s): anuerysm Father Family Medical History: CVA/TIA, Diabetes Mellitus, Myocardial Infarction ([place]) Sister(s) Additional Family Medical History / Comment(s): one sister had "hole in her heart" and a kidney transplant and another sister had ms. Medications and Allergies Home Medications Medication Instructions Recorded Confirmed Type Carvedilol [Coreg] 12.5 mg PO BID 08/17/18 05/17/21 History Clopidogrel [Plavix] 75 mg PO DAILY 08/17/18 05/17/21 History Gabapentin [Neurontin] 300 mg PO HS #3 capsule 10/21/20 05/17/21 Rx INSULIN ASPART (NovoLOG) [NovoLOG See Protocol SQ AC-TID PRN 05/07/21 05/17/21 History (formulary)] Loperamide [Imodium] 2 mg PO BID PRN 05/07/21 05/17/21 History Pantoprazole Sodium 40 mg PO DAILY 05/07/21 05/17/21 History Insulin Detemir (Levemir) [Levemir] 20 unit SQ DAILY PRN 05/17/21 05/17/21 History hydrOXYzine HCL [Atarax] 25 mg PO TID PRN 05/17/21 05/17/21 History traMADol-ACETAMINOP 37.5-325MG 1 tab PO TID PRN 05/17/21 05/17/21 History [Ultracet] Allergies Allergy/AdvReac Type Severity Reaction Status Date / Time vitamin E (d-alpha Allergy Unknown Rash/Hives Verified 05/17/21 17:29 tocopherol) collagenase Clostridium Allergy Rash/Hives Verified 05/17/21 17:29 histolyticu [From Santyl] latex Allergy Rash/Hives Verified 05/17/21 17:29 pollen extracts AdvReac Mild Itching Verified 05/17/21 17:29 dial soap Allergy Unknown Rash/Hives Uncoded 05/07/21 12:30 Physical Exam Vitals: Vital Signs Temp Pulse Pulse Resp BP BP Pulse Ox 05/18/21 08:00 98.4 F 81 18 111/60 99 05/18/21 01:29 98.0 F 78 14 115/66 98 05/17/21 23:18 74 18 91/51 96 05/17/21 21:00 77 20 91/55 98 05/17/21 20:08 100.1 F H 80 14 102/55 94 L 05/17/21 18:35 86 20 116/60 97 05/17/21 16:56 102.2 F H 94 20 111/57 99 05/17/21 14:50 103 F H 87 20 125/62 99 Intake and Output 05/17/21 05/18/21 05/18/21 22:59 06:59 14:59 Other: Voiding Method External Catheter External Catheter # Voids 2 Weight 115.666 kg GENERAL DESCRIPTION: Middle-aged female lying in bed, no distress. No tachypnea or accessory muscle of respiration use. HEENT: Shows Pallor , no scleral icterus. Oral mucous membrane is dry. No pharyngeal erythema or thrush NECK: Trachea central, no thyromegaly. LUNGS: Unlabored breathing. Clear to auscultation anteriorly. No wheeze or crackle. HEART: S1, S2, regular rate and rhythm. No loud murmur ABDOMEN: Soft, no tenderness , guarding or rigidity, no organomegaly EXTREMITIES: right leg wounds dressed , pt refused dressing to be taken off , looking at pictures , superfical ulcers and maceration , no slough SKIN: No rash, no masses palpable. NEUROLOGICAL: The patient is awake, alert, oriented x3, mood and affect normal. Results CBC & Chem 7: 05/19/21 04:31 05/19/21 04:31 Labs: Abnormal Lab Results - Last 24 Hours (Table) 05/17/21 05/17/21 05/17/21 Range/Units 16:19 16:19 21:46 RBC 2.63 L (3.80-5.40) m/uL Hgb 6.4 L* (11.4-16.0) gm/dL Hct 21.7 L (34.0-46.0) % MCH 24.5 L (25.0-35.0) pg MCHC 29.7 L (31.0-37.0) g/dL RDW 16.2 H (11.5-15.5) % Neutrophils # 9.2 H (1.3-7.7) k/uL Lymphocytes # 0.2 L (1.0-4.8) k/uL Sodium 130 L (137-145) mmol/L Potassium 5.3 H (3.5-5.1) mmol/L Carbon Dioxide 17 L (22-30) mmol/L BUN 80 H (7-17) mg/dL Creatinine 2.75 H (0.52-1.04) mg/dL Glucose 182 H (74-99) mg/dL POC Glucose (mg/dL) (75-99) mg/dL Calcium 7.8 L (8.4-10.2) mg/dL Urine Appearance (Clear) Urine Protein (Negative) Ur Leukocyte Esterase (Negative) Urine WBC (0-5) /hpf Ur Squamous Epith Cells (0-4) /hpf Amorphous Sediment (None) /hpf Urine Bacteria (None) /hpf Urine Mucus (None) /hpf Crossmatch See Detail 05/18/21 05/18/21 05/18/21 Range/Units 00:42 02:38 02:41 RBC 2.57 L (3.80-5.40) m/uL Hgb 6.4 L* (11.4-16.0) gm/dL Hct 21.4 L (34.0-46.0) % MCH (25.0-35.0) pg MCHC 30.0 L (31.0-37.0) g/dL RDW 16.3 H (11.5-15.5) % Neutrophils # (1.3-7.7) k/uL Lymphocytes # 0.3 L (1.0-4.8) k/uL Sodium 131 L (137-145) mmol/L Potassium (3.5-5.1) mmol/L Carbon Dioxide 17 L (22-30) mmol/L BUN 80 H (7-17) mg/dL Creatinine 2.88 H (0.52-1.04) mg/dL Glucose 108 H (74-99) mg/dL POC Glucose (mg/dL) 150 H (75-99) mg/dL Calcium 7.6 L (8.4-10.2) mg/dL Urine Appearance (Clear) Urine Protein (Negative) Ur Leukocyte Esterase (Negative) Urine WBC (0-5) /hpf Ur Squamous Epith Cells (0-4) /hpf Amorphous Sediment (None) /hpf Urine Bacteria (None) /hpf Urine Mucus (None) /hpf Crossmatch 05/18/21 05/18/21 05/18/21 Range/Units 07:26 10:14 11:45 RBC (3.80-5.40) m/uL Hgb (11.4-16.0) gm/dL Hct (34.0-46.0) % MCH (25.0-35.0) pg MCHC (31.0-37.0) g/dL RDW (11.5-15.5) % Neutrophils # (1.3-7.7) k/uL Lymphocytes # (1.0-4.8) k/uL Sodium (137-145) mmol/L Potassium (3.5-5.1) mmol/L Carbon Dioxide (22-30) mmol/L BUN (7-17) mg/dL Creatinine (0.52-1.04) mg/dL Glucose (74-99) mg/dL POC Glucose (mg/dL) 138 H 157 H (75-99) mg/dL Calcium (8.4-10.2) mg/dL Urine Appearance Cloudy H (Clear) Urine Protein Trace H (Negative) Ur Leukocyte Esterase Large H (Negative) Urine WBC 11 H (0-5) /hpf Ur Squamous Epith Cells 12 H (0-4) /hpf Amorphous Sediment Rare H (None) /hpf Urine Bacteria Many H (None) /hpf Urine Mucus Rare H (None) /hpf Crossmatch Microbiology - Last 24 Hours (Table) 05/17/21 16:19 Group A Strep Throat Culture - Preliminary Throat Assessment and Plan Assessment: Patient presented to hospital with sepsis in this patient did have a fever tachycardia with significant pain to the right lower extremity more in this patient who recently did have debridement of these wounds now with evidence of gram-negative bacteremia likely source of the infection and sepsis and will need to cover for the resistant gram-negative 2-patient with a diuresis which is still high risk of nephrotoxicity (1) SIRS (systemic inflammatory response syndrome) Current Visit: Yes Status: Acute Code(s): R65.10 - SIRS OF NON-INFECTIOUS ORIGIN W/O ACUTE ORGAN DYSFUNCTION SNOMED Code(s): 273324269 (2) Bacteremia Current Visit: No Status: Acute Code(s): R78.81 - BACTEREMIA SNOMED Code(s): 7276645 (3) Venous stasis ulcer of right lower leg with edema of right lower leg Current Visit: No Status: Acute Code(s): I83.019 - VARICOSE VEINS OF RIGHT LOWER EXTREMITY W ULCER OF UNSP SITE; I83.891 - VARICOSE VEINS OF R LOW EXTREM WITH OTHER COMPLICATIONS; L97.919 - NON-PRS CHRONIC ULC UNSP PRT OF R LOW LEG W UNSP SEVERITY; R60.9 - EDEMA, UNSPECIFIED SNOMED Code(s): 02210451690660500 Plan: 1-discontinue daptomycin 2-start the patient on meropenem 3-dry Aquacel dressing to the open wound followed by mild compression dressing We will follow on clinical condition and cultures to further adjust medication if needed Thank you for this consultation we will follow the patient along with you Time with Patient: Greater than 30
[2021-05-19] MEDS: INSULIN ASPART (NovoLOG) 100 UNIT/ML VIAL SQ SCH ×4 (07:55→21:27)
[2021-05-19] MEDS: carvediloL 3.125 MG TAB PO SCH ×2 (09:54→16:52)
[2021-05-19] MEDS: SODIUM BICARBONATE TAB 650 MG TAB PO SCH ×3 (09:54→21:49)
[2021-05-19 11:20] LABS: Glucose,Whole Blood 73 mg/dL (75-99)
[2021-05-19] MEDS: traMADol-ACETAMINOP 37.5-325MG 1 EACH TAB PO PRN (13:38)
--- NOTE | 2021-05-19 13:49 | P.GSCN ---
History of Present Illness Consult date: 05/19/21 Reason for Consult: infected right lower extremity wound Requesting physician: Bobby Quinones History of present illness: Grecia is a 60-year-old female who previously has undergone a left lower extremity above-knee amputation for significant nonhealing wounds. He is sleeping was following with wound care for right lower extremity wounds and had presented to Dr. Scruggs's office in April of this year. She was seen in the office and was found to have maggots in her wound. He was determined further aggressive debridement was needed and she underwent sharp excisional debridement on 05/09/2021 for nonhealing right lower extremity wounds and clinically suspected osteomyelitis of the right great toe. She has been following with outpatient wound care center, last seen last . She presented back to the emergency department for fever. Infectious diseases on consult and according to their note patient was not willing to allow them to unwrap her dressings for further evaluation. She underwent an x-ray of the right lower extremity with findings that stated no acute bony abnormality. No sign of osteomyelitis. Arthritic narrowing of the medial joint space of the knee. She also underwent a CT of the right lower extremity showing subcutaneous edema. No evidence of an abscess. No evidence of osteomyelitis. She is currently on meropenem IV antibiotics. The patient states she did not know that she had a fever at home but did feel achy, with chills and some dry heaves. She states she has been at home with home care coming in 3 times a week to change her dressing changes and the other 2 days her caregiver changes her dressings. States that she has noticed a mild odor for the last few days. She denies any current fever, chills, abdominal pain, nausea, vomiting, shortness of breath or chest pain. Blood culture showing E. coli. Urine culture pending. Review of Systems A 14 point review systems was completed, all pertinent positives and negatives as stated in the HPI. 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 Last Myocardial Infarction Date:: 2011 History of Any Multi-Drug Resistant Organisms: ESBL, MRSA Year Discovered:: 01/26/20 ESBL / 03/20/19 MRSA MDRO Source:: ESBL URINE/ MRSA BLOOD Past Surgical History: Section Additional Past Surgical History / Comment(s): 2011 CABG 2 vessel, D&C, C-sections x 2, bilateral lower leg/heels debrided., left above the knee amputation (Oct 2020). Past Anesthesia/Blood Transfusion Reactions: Previous Problems w/ Anesthesia Additional Past Anesthesia/Blood Transfusion Reaction / Comm: states fluctuation in heart rate., clausterphobia Past Psychological History: No Psychological Hx Reported Additional Psychological History / Comment(s): LIVES ALONE IN APARTMENT, STATES [facility] VISITING NURSE AND HAS AIDE ALSO., company. Denies tobacco smoking or alcohol use. Medically disabled. No experience or international travel. No animals in the home. She has a nebulizer and a glucometer. She has [facility] aide 3 days a week for cleaning/showering. Comes to wound center for leg wounds. Smoking Status: Former smoker Past Alcohol Use History: None Reported Additional Past Alcohol Use History / Comment(s): stopped smoking in 2011. HX OF 3PPD., In the past used to drink heavily but none since 1990 Past Drug Use History: None Reported - Past Family History Mother Additional Family Medical History / Comment(s): anuerysm Father Family Medical History: CVA/TIA, Diabetes Mellitus, Myocardial Infarction (DE) Sister(s) Additional Family Medical History / Comment(s): one sister had "hole in her heart" and a kidney transplant and another sister had ms. Medications and Allergies Home Medications Medication Instructions Recorded Confirmed Type Carvedilol [Coreg] 12.5 mg PO BID 08/17/18 05/17/21 History Clopidogrel [Plavix] 75 mg PO DAILY 08/17/18 05/17/21 History Gabapentin [Neurontin] 300 mg PO HS #3 capsule 10/21/20 05/17/21 Rx INSULIN ASPART (NovoLOG) [NovoLOG See Protocol SQ AC-TID PRN 05/07/21 05/17/21 History (formulary)] Loperamide [Imodium] 2 mg PO BID PRN 05/07/21 05/17/21 History Pantoprazole Sodium 40 mg PO DAILY 05/07/21 05/17/21 History Insulin Detemir (Levemir) [Levemir] 20 unit SQ DAILY PRN 05/17/21 05/17/21 History hydrOXYzine HCL [Atarax] 25 mg PO TID PRN 05/17/21 05/17/21 History traMADol-ACETAMINOP 37.5-325MG 1 tab PO TID PRN 05/17/21 05/17/21 History [Ultracet] Allergies Allergy/AdvReac Type Severity Reaction Status Date / Time vitamin E (d-alpha Allergy Unknown Rash/Hives Verified 05/17/21 17:29 tocopherol) collagenase Clostridium Allergy Rash/Hives Verified 05/17/21 17:29 histolyticu [From Santyl] latex Allergy Rash/Hives Verified 05/17/21 17:29 pollen extracts AdvReac Mild Itching Verified 05/17/21 17:29 dial soap Allergy Unknown Rash/Hives Uncoded 05/07/21 12:30 Surgical - Exam Vital Signs Temp Pulse Resp BP Pulse Ox 103 F H 87 20 125/62 99 05/17/21 14:50 05/17/21 14:50 05/17/21 14:50 05/17/21 14:50 05/17/21 14:50 General appearance: The patient is alert, oriented, in no acute distress. HET: Head is normocephalic and atraumatic. Neck: Supple without lymphadenopathy. Trachea midline. Heart: S1 S2. Regular rate and rhythm. Lungs: Clear to auscultation. Abdomen: Soft, nontender, nondistended. Extremities: Left AKA stump. Right lower extremity with edema. Multiple superficial ulcers on the right lower extremity from knee to ankle, right heel debridement site with no drainage, no odor. Right great toe with wet gangrene, malodorous. Neurological: No focal deficits. Results - Labs 05/19/21 04:31 05/19/21 04:31 Abnormal Lab Results - Last 24 Hours (Table) 05/17/21 05/18/21 05/18/21 Range/Units 21:46 10:14 11:45 RBC (3.80-5.40) m/uL Hgb (11.4-16.0) gm/dL Hct (34.0-46.0) % MCHC (31.0-37.0) g/dL RDW (11.5-15.5) % Lymphocytes # (1.0-4.8) k/uL Sodium (137-145) mmol/L Carbon Dioxide (22-30) mmol/L BUN (7-17) mg/dL Creatinine (0.52-1.04) mg/dL Glucose (74-99) mg/dL POC Glucose (mg/dL) 157 H (75-99) mg/dL Calcium (8.4-10.2) mg/dL Urine Appearance Cloudy H (Clear) Urine Protein Trace H (Negative) Ur Leukocyte Esterase Large H (Negative) Urine WBC 11 H (0-5) /hpf Ur Squamous Epith Cells 12 H (0-4) /hpf Amorphous Sediment Rare H (None) /hpf Urine Bacteria Many H (None) /hpf Urine Mucus Rare H (None) /hpf Crossmatch See Detail 05/18/21 05/18/21 05/19/21 Range/Units 17:01 20:24 04:31 RBC 2.84 L (3.80-5.40) m/uL Hgb 7.1 L (11.4-16.0) gm/dL Hct 23.6 L (34.0-46.0) % MCHC 30.3 L (31.0-37.0) g/dL RDW 16.3 H (11.5-15.5) % Lymphocytes # 0.4 L (1.0-4.8) k/uL Sodium (137-145) mmol/L Carbon Dioxide (22-30) mmol/L BUN (7-17) mg/dL Creatinine (0.52-1.04) mg/dL Glucose (74-99) mg/dL POC Glucose (mg/dL) 131 H 146 H (75-99) mg/dL Calcium (8.4-10.2) mg/dL Urine Appearance (Clear) Urine Protein (Negative) Ur Leukocyte Esterase (Negative) Urine WBC (0-5) /hpf Ur Squamous Epith Cells (0-4) /hpf Amorphous Sediment (None) /hpf Urine Bacteria (None) /hpf Urine Mucus (None) /hpf Crossmatch 05/19/21 05/19/21 05/19/21 Range/Units 04:31 05:24 05:40 RBC (3.80-5.40) m/uL Hgb (11.4-16.0) gm/dL Hct (34.0-46.0) % MCHC (31.0-37.0) g/dL RDW (11.5-15.5) % Lymphocytes # (1.0-4.8) k/uL Sodium 132 L (137-145) mmol/L Carbon Dioxide 18 L (22-30) mmol/L BUN 78 H (7-17) mg/dL Creatinine 2.71 H (0.52-1.04) mg/dL Glucose 35 L* (74-99) mg/dL POC Glucose (mg/dL) 44 L 56 L (75-99) mg/dL Calcium 7.9 L (8.4-10.2) mg/dL Urine Appearance (Clear) Urine Protein (Negative) Ur Leukocyte Esterase (Negative) Urine WBC (0-5) /hpf Ur Squamous Epith Cells (0-4) /hpf Amorphous Sediment (None) /hpf Urine Bacteria (None) /hpf Urine Mucus (None) /hpf Crossmatch Microbiology - Last 24 Hours (Table) 05/17/21 17:21 Blood Culture Gram Stain - Preliminary Blood Blood Culture - Preliminary Escherichia coli 05/18/21 10:14 Urine Culture - Preliminary Urine,Voided 05/17/21 17:21 Blood Culture - Final Blood Diabetes panel 05/19/21 Range/Units 04:31 Sodium 132 L (137-145) mmol/L Potassium 4.7 (3.5-5.1) mmol/L Chloride 107 (98-107) mmol/L Carbon Dioxide 18 L (22-30) mmol/L BUN 78 H (7-17) mg/dL Creatinine 2.71 H (0.52-1.04) mg/dL Glucose 35 L* (74-99) mg/dL Calcium 7.9 L (8.4-10.2) mg/dL Calcium panel 05/19/21 Range/Units 04:31 Calcium 7.9 L (8.4-10.2) mg/dL Pituitary panel 05/19/21 Range/Units 04:31 Sodium 132 L (137-145) mmol/L Potassium 4.7 (3.5-5.1) mmol/L Chloride 107 (98-107) mmol/L Carbon Dioxide 18 L (22-30) mmol/L BUN 78 H (7-17) mg/dL Creatinine 2.71 H (0.52-1.04) mg/dL Glucose 35 L* (74-99) mg/dL Calcium 7.9 L (8.4-10.2) mg/dL Adrenal panel 05/19/21 Range/Units 04:31 Sodium 132 L (137-145) mmol/L Potassium 4.7 (3.5-5.1) mmol/L Chloride 107 (98-107) mmol/L Carbon Dioxide 18 L (22-30) mmol/L BUN 78 H (7-17) mg/dL Creatinine 2.71 H (0.52-1.04) mg/dL Glucose 35 L* (74-99) mg/dL Calcium 7.9 L (8.4-10.2) mg/dL - Imaging Comments: See HPI for results Assessment and Plan Assessment: 1. Right lower extremity venous stasis ulcers 2. Right great toe wet gangrene 3. Bacteremia 4. Diabetes mellitus 5. Chronic kidney disease Plan: 1. Continue IV antibiotics per recommendations from infectious disease 2. Wound care consulted, patient known to them 3. Daily dressing changes with adaptix and kerlix until seen by wound care 4. Plan for right great toe amputation on Wednesday with Dr. Scruggs Thank you For this consultation, we will continue to follow. The impression and plan of care has been dictated as directed. Dr. Brice I performed a history and examination of this patient, discussed the same with the dictator. I agree with the dictator's note ,documented as a scribe. Any additional findings or plans will be noted.
[2021-05-19 14:51] VITALS: BMI 43.7
[2021-05-19 16:16] LABS: Glucose,Whole Blood 94 mg/dL (75-99)
[2021-05-19] MEDS: ACETAMINOPHEN TAB 325 MG TAB PO PRN (16:52)
--- NOTE | 2021-05-19 19:27 | P.PN ---
Progress Note - Text Progress Note Date: 05/19/21 Chief Complaint: Chills History of presenting complaint: This is a pleasant 60-year-old patient, visiting physicians Dr. Garcia. Chronic stable medical conditions include (above-knee amputation, chronic wound on the right lower extremity being followed by Dr. Scruggs from vascular, at the wound care center by Lauren, and also has home care. Chronic kidney disease stage III, diabetes mellitus type 2, hyperlipidemia, coronary artery disease with bypass, diabetic peripheral neuropathy, lower back pain from arthritis, uses a motorized wheelchair at baseline, severe secondary pulmonary hypertension, mitral and tricuspid regurgitation. She was just discharged from the hospital about 5 days ago following debridement of the right lower extremity. Suggestion was made for amputation of the toe. Patient was seen at the wound care center on this . Patient at home now starts feeling weak diet chills shaky. Decreased appetite. Found to have a fever in the ER, admitted with sepsis. Patient feeling tired and rundown. Per evaluation of ER physician no evidence of compartment syndrome. Patient presented with infected left foot big toe. Septic. Started on IV meropenem. May 19: Sitting up in bed. A bit tired. Getting IV meropenem. Oral intake fair. Discussed with Dr. Scruggs from vascular. Possible amputation and couple of days. Will order arterial Doppler to get an idea about. Blood flow Review of systems: Was done for constitutional, cardiovascular, GI, pulmonary. relevant finding as above Active Medications Acetaminophen (Acetaminophen Tab 325 Mg Tab) 650 mg PO Q6HR PRN PRN Reason: Mild Pain or Fever > 100.5 Last Admin: 05/19/21 16:52 Dose: 650 mg Documented by: Al Hydroxide/Mg Hydroxide (Mag Hydrox/Al Hydrox/Simeth 30 Ml Cup) 15 ml PO Q6HR PRN PRN Reason: Indigestion Alprazolam (Alprazolam 0.25 Mg Tab) 0.25 mg PO Q6HR PRN PRN Reason: Anxiety Calcium Carbonate/Glycine (Calcium Carbonate 500 Mg Chewable) 1,000 mg PO Q4HR PRN PRN Reason: Dyspepsia Last Admin: 05/18/21 22:46 Dose: 1,000 mg Documented by: Carvedilol (Carvedilol 3.125 Mg Tab) 3.125 mg PO BID-W/MEALS DAVIE Last Admin: 05/19/21 16:52 Dose: 3.125 mg Documented by: Gabapentin (Gabapentin 300 Mg Cap) 300 mg PO HS [facility] Last Admin: 05/18/21 21:36 Dose: 300 mg Documented by: Sodium Chloride (Saline 0.9%) 1,000 mls @ 75 mls/hr IV .[id number] [facility] Last Admin: 05/19/21 02:04 Dose: 75 mls/hr Documented by: Meropenem 500 mg/ Sodium (Chloride) 100 mls @ 33.3 mls/hr IVPB Q12HR [facility]; Protocol Insulin Aspart (Insulin Aspart (Novolog) 100 Unit/Ml Vial) 0 unit SQ [facility]; Protocol Last Admin: 05/19/21 16:51 Dose: Not Given Documented by: Insulin Detemir (Insulin Detemir (Levemir) 100 Unit/Ml Syr) 20 unit SQ [facility] Last Admin: 05/18/21 21:36 Dose: 20 unit Documented by: Lactulose (Lactulose 20 Gm/30 Ml Cup) 20 gm PO DAILY PRN PRN Reason: Constipation Loperamide HCl (Loperamide 2 Mg Cap) 2 mg PO BID PRN PRN Reason: Diarrhea Magnesium Hydroxide (Magnesium Hydroxide 2,400 Mg/10 Ml Cup) 2,400 mg PO DAILY PRN PRN Reason: Constipation Melatonin (Melatonin 3 Mg Tablet) 3 mg PO HS PRN PRN Reason: Insomnia Naloxone HCl (Naloxone 0.4 Mg/Ml 1 Ml Vial) 0.2 mg IV Q2M PRN PRN Reason: Opioid Reversal Ondansetron HCl (Ondansetron 4 Mg/2 Ml Vial) 4 mg IVP Q8HR PRN PRN Reason: Nausea And Vomiting Sodium Bicarbonate (Sodium Bicarbonate Tab 650 Mg Tab) 650 mg PO TID [facility] Last Admin: 05/19/21 16:52 Dose: 650 mg Documented by: Tramadol/Acetaminophen (Tramadol-Acetaminop 37.5-325mg 1 Each Tab) 1 each PO TID PRN PRN Reason: Pain Last Admin: 05/19/21 13:38 Dose: 1 each Documented by: Past medical history to include: Left above-knee amputation, chronic wound to the right lower extremity, chronic kidney disease stage III, diabetes mellitus, hyperlipidemia, coronary artery disease with bypass, diabetic peripheral neuropathy, lower back pain from arthritis, GERD venous stasis ulcers, peripheral neuropathy, Social history: Lives alone. Motorized wheelchair. Home care. She was drinking heavily of April 1991. Smoking up to 3 packs a day up to 2011. Family history: Diabetes, [place], and resume, stroke Physical examination: VITAL SIGNS: 98.2, 85, 17, 106/59, 96% room air GENERAL: Reclining in bed, awake, EYES: Pupils equal. Conjunctiva normal. HEENT: External appearance of nose and ears normal, oral cavity grossly normal. NECK: JVD not raised; masses not palpable. HEART: First and second heart sounds are normal; no edema. LUNGS: Respiratory rate increased; decreased breath sounds. ABDOMEN: Soft, nontender, liver spleen not palpable, no masses palpable. PSYCH: Alert and oriented x3; mood and affect normal. NEUROLOGICAL: Cranial nerves grossly intact; no facial asymmetry, power and sensation grossly intact. EXTREMITIES: Left above-knee amputation. Right lower extremity wounds -included right big toe wound and ischemic changes in the foot INVESTIGATIONS, reviewed in the clinical context: May 19: WBC 9.3 hemoglobin 7.1 potassium 4.7 BUN 78 creatinine 2.71 Accu-Cheks 83, 95, 73 WBC 8.4 hemoglobin 6.4 platelets 241 potassium 4.9 BUN 18 creatinine 2.88 UA positive for leukoesterase, WBC, squamous epithelial cells Influenza type A, type B, sour [place] PCR: Non-not detected Chest x-ray film: No infiltrates CT right lower extremity without contrast: Subcutis edema. No evidence of abscess. Previous studies: 2-D echocardiogram: Moderate concentric LVH. EF 45-50%. Moderate to severe tricuspid regurgitation. Severe pulmonary hypertension. Assessment and plan: -Sepsis from infected right lower extremity wound IV fluids. Antibiotics -Acute on chronic right lower extremity wounds from venous stasis ulcers, especially infected right big toe: Slow to respond due for right big toe amputation, on wednesday, by Dr. Scruggs. IV meropenem -Chronic kidney disease stage III from diabetic nephropathy and nephrosclerosis Follow renal function - Morbid obesity BMI 43.8 Weight loss measures. Follow-up with PCP -Diabetes mellitus type 2 , uncontrolled with hypoglycemia Levemir -hold. Follow Accu-Cheks -Coronary artery disease with prior history of bypass Aspirin, Coreg, Plavix -Diabetic peripheral neuropathy -Chronic low back pain from arthritis Tylenol as needed -Chronic medical debility Uses a motorized wheelchair -Secondary severe pulmonary hypertension Follow clinically -Moderate mitral and moderate to severe tricuspid regurgitation Follow clinically IV meropenem. IV fluids. Accu-Cheks running low. ALBERTO Vallecillo. Discussed with Dr. Scruggs. Surgery on Wednesday. Order arterial Doppler. Total time spent today about 40 minutes with over 20 minutes of discussion.
[2021-05-19] MEDS: LOPERAMIDE 2 MG CAP PO PRN (19:36)
[2021-05-19 20:54] LABS: Glucose,Whole Blood 125 mg/dL (75-99)
[2021-05-19] MEDS: GABAPENTIN 300 MG CAP PO SCH (21:49)
[2021-05-20 06:49] LABS: Glucose,Whole Blood 181 mg/dL (75-99)
[2021-05-20] MEDS: INSULIN ASPART (NovoLOG) 100 UNIT/ML VIAL SQ SCH ×4 (07:52→22:51)
[2021-05-20] MEDS: traMADol-ACETAMINOP 37.5-325MG 1 EACH TAB PO PRN ×2 (07:52→14:52)
[2021-05-20] MEDS: SODIUM BICARBONATE TAB 650 MG TAB PO SCH ×3 (07:53→22:51)
[2021-05-20] MEDS: carvediloL 3.125 MG TAB PO SCH ×2 (07:56→16:58)
[2021-05-20] MEDS: MEROPENEM 500 MG in SODIUM CHLORIDE 0.9% 100 ML IVPB SCH ×2 (07:56→22:51)
--- NOTE | 2021-05-20 09:51 | P.PN ---
Subjective Progress Note Date: 05/20/21 Principal diagnosis: Fever, right lower extremity wounds She was seen and examined lying in bed. No acute changes through the night. She's been afebrile. She remains on meropenem IV. Plan is for right great toe amputation tomorrow. Objective - Vital Signs Vital signs: Vital Signs Temp 98.2 F 05/20/21 01:24 Pulse 85 05/20/21 01:24 Resp 15 05/20/21 01:24 BP 115/64 05/20/21 01:24 Pulse Ox 97 05/20/21 01:24 Intake & Output 05/19/21 05/20/21 05/20/21 18:59 06:59 18:59 Output Total 350 600 Balance -350 -600 Weight 115.666 kg Output: Urine 350 600 Other: Voiding Method External Catheter External Catheter # Bowel Movements 2 1 - Exam General appearance: The patient is alert, oriented, in no acute distress. Obese. HET: Head is normocephalic and atraumatic. Neck: Supple Extremities: Left lower extremity with AKA stump. Right lower extremity with superficial weeping ulcers from the 2 ankle, heel debridement site with minimal drainage, no follow older. Right great toe wet gangrene with bowel older. Patient has multiphasic dorsalis pedis and posterior tibialis Doppler signal. Neurological: No focal deficits. Alert and oriented 3. - Labs CBC & Chem 7: 05/19/21 04:31 05/19/21 04:31 Labs: Abnormal Lab Results - Last 24 Hours (Table) 05/19/21 05/19/21 05/20/21 Range/Units 11:17 20:52 06:48 POC Glucose (mg/dL) 73 L 125 H 181 H (75-99) mg/dL Microbiology - Last 24 Hours (Table) 05/18/21 10:14 Urine Culture - Final Urine,Voided 05/17/21 16:19 Group A Strep Throat Culture - Final Throat 05/17/21 17:21 Blood Culture Gram Stain - Preliminary Blood Blood Culture - Preliminary Escherichia coli Assessment and Plan Assessment: 1. Right lower extremity venous stasis ulcers 2. Right great toe wet gangrene 3. Bacteremia 4. Diabetes mellitus 5. Chronic kidney disease Plan: 1. Continue IV antibiotics per recommendations from infectious disease 2. Wound care consulted, patient known to them 3. Daily dressing changes with adaptix and kerlix until seen by wound care 4. Plan for right great toe amputation on Wednesday with Dr. Scruggs Nothing by mouth after midnight. Thank you For this consultation, we will continue to follow. The impression and plan of care has been dictated as directed. Dr. Stout I performed a history and examination of this patient, discussed the same with the dictator. I agree with the dictator's note ,documented as a scribe. Any additional findings or plans will be noted.
[2021-05-20 11:42] LABS: Glucose,Whole Blood 175 mg/dL (75-99)
--- NOTE | 2021-05-20 12:15 | P.CONS ---
History of Present Illness - Reason for Consult Consult date: 05/20/21 wound care - History of Present Illness This is a 60 year old female patient known to the wound care center with multiple ulcerations to the right lower extremities. The ulceration was treated with 3 layer compression wrap with hydrofera blue. Original cause of wound was Trauma. The wound is currently classified as a Grade 2 wound with etiology of Diabetic Wound/Ulcer of the Lower Extremity and is located on the Right,Medial Toe Great. The wound measures 3.6cm length x 2.7cm width x 0.1cm depth; 7.634cm^2 area and 0.763cm^3 volume. There is Fat Layer (Subcutaneous Tissue) Exposed exposed. There is no tunneling or undermining noted. There is a medium amount of serous drainage noted. Foul odor after cleansing was noted. The wound margin is distinct with the outline attached to the wound base. There is no granulation within the wound bed. There is a large (67-100%) amount of necrotic tissue within the wound bed including Eschar and Adherent Slough. The periwound skin appearance exhibited: Callus, Maceration. The periwound skin appearance did not exhibit: Crepitus, Excoriation, Induration, Rash, Scarring, Dry/Scaly, Atrophie Fatoumata, Cyanosis, Ecchymosis, Erythema. Original cause of wound was Gradually Appeared. The wound is currently classified as a Full Thickness Without Exposed Support Structures wound with etiology of Venous Leg Ulcer and is located on the Medial,Superior Lower Leg. The wound measures 10.4cm length x 7.2cm width x 0.2cm depth; 58.811cm^2 area and 11.762cm^3 volume. There is Fat L erickson (Subcutaneous Tissue) Exposed exposed. There is no tunneling or undermining noted. There is a large amount of serous drainage noted. Foul odor after cleansing was noted. The wound margin is indistinct and nonvisible. There is small (1-33%) red granulation within the wound bed. There is a large (67-100%) amount of necrotic tissue within the wound bed including Adherent Slough. The periwound skin appearance exhibited: Maceration, Hemosiderin Staining, Erythema. The periwound skin appearance did not exhibit: Callus, Crepitus, Excoriation, Induration, Rash, Scarring, Dry/Scaly, Atrophie Sartell, Cyanosis. The surrounding wound skin color is noted with erythema which is circumferential. Original cause of wound was Not Known. The wound is currently classified as a Category/Stage III wound with etiology of Pressure Ulcer and is located on the Right,Posterior Calcaneus. The wound measures 5.9cm length x 4.3cm width x 0.1cm depth; 19.926cm^2 area and 1.993cm^3 volume. There is Fat Layer (Subcutaneous Tissue) Exposed exposed. There is no tunneling or undermining noted. There is a large amount of serous drainage noted. The wound margin is thickened. There is no granulation within the wound bed. There is a large (67-100%) amount of necrotic tissue within the wound bed including Eschar and Adherent Slough. The periwound skin appearance exhibited: Maceration. The periwound skin appearance did not exhibit: Callus, Crepitus, Excoriation, Induration, Rash, Scarring, Dry/Scaly. Original cause of wound was Gradually Appeared. The wound is currently classified as a Full Thickness Without Exposed Support Structures wound with etiology of Venous Leg Ulcer and is located on the Right,Posterior Lower Leg. The wound measures 12.5cm length x 6.5cm width x 0.1cm depth; 63.814cm^2 area and 6.381cm^3 volume. The wound is limited to skin breakdown. There is no tunneling or undermining noted. There is a large amount of serous drainage noted. Foul odor after cleansing was noted. The wound margin is indistinct and nonvisible. There is medium (34-66%) pink granulation within the wound bed. There is a medium (34-66%) amount of necrotic tissue within the wound bed including Adherent Slough. The periwound skin appearance exhibited: Scarring, Maceration, Hemosiderin Staining, Erythema. The periwound skin appearance did not exhibit: Dry/Scaly. The surrounding wound skin color is noted with erythema which is circumferential. Review Of Systems: Constitutional: No fever, no chills, no night sweats. No weight change. No weakness, fatigue or lethargy. No daytime sleepiness. Integumentary:reports wounds, no lesions. No rash or pruritus. No unusual bruising. No change in hair or nails. Physical exam: General Appearance: Alert, cooperative, no distress, appears stated age. Skin: See HPI all other Skin color, texture, tugor normal, no rashes or lesions. Neurologic: Alert oriented x3 Assessment: 1. Diabetes mellitus due to underlying condition with foot ulcer 2. Non-pressure chronic ulcer of other part of right foot with fat layer exposed 3. Varicose veins of right lower extremity with ulcer of unspecified site 4. Other obesity due to excess calories Plan: 1. Right heel: Apply honey alginate, saline moist gauze, dry gauze, and rolled gauze. Change Wednesday, , and wednesday. 2. Right lower extremity: Apply absorptive silver moisten, rolled gauze, and rolando wrap to secure. Change wednesday, and wednesday. 3. Next wound care appointment 05/29/2021 @ 1:30. DNP note has been reviewed and discussed with Dr. Solomon and the impression and plan of care has been directed as dictated. Past Medical History Past Medical History: Coronary Artery Disease (CAD), Heart Failure, COPD, Diabetes Mellitus, GERD/Reflux, Hyperlipidemia, Hypertension, Myocardial Infarction (HI), Osteoarthritis (OA), Renal Disease, Rheumatoid Arthritis (RA), Skin Disorder, Vascular Disorder Additional Past Medical History / Comment(s): venous stasis ulcers, hx cellulitis, 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 Denies tobacco smoking or alcohol use. Medically disabled. No experience or international travel. No animals in the home. She has a nebulizer and a glucometer. She has [employer] aide 3 days a week for cleaning/showering. Comes to wound center for leg wounds. Smoking Status: Former smoker Past Alcohol Use History: None Reported Additional Past Alcohol Use History / Comment(s): stopped smoking in 2011. HX OF 3PPD., In the past used to drink heavily but none since 1990 Past Drug Use History: None Reported - Past Family History Mother Additional Family Medical History / Comment(s): anuerysm Father Family Medical History: CVA/TIA, Diabetes Mellitus, Myocardial Infarction (HI) Sister(s) Additional Family Medical History / Comment(s): one sister had "hole in her heart" and a kidney transplant and another sister had ms. Medications and Allergies Home Medications Medication Instructions Recorded Confirmed Type Carvedilol [Coreg] 12.5 mg PO BID 08/17/18 05/17/21 History Clopidogrel [Plavix] 75 mg PO DAILY 08/17/18 05/17/21 History Gabapentin [Neurontin] 300 mg PO HS #3 capsule 10/21/20 05/17/21 Rx INSULIN ASPART (NovoLOG) [NovoLOG See Protocol SQ AC-TID PRN 05/07/21 05/17/21 History (formulary)] Loperamide [Imodium] 2 mg PO BID PRN 05/07/21 05/17/21 History Pantoprazole Sodium 40 mg PO DAILY 05/07/21 05/17/21 History Insulin Detemir (Levemir) [Levemir] 20 unit SQ DAILY PRN 05/17/21 05/17/21 History hydrOXYzine HCL [Atarax] 25 mg PO TID PRN 05/17/21 05/17/21 History traMADol-ACETAMINOP 37.5-325MG 1 tab PO TID PRN 05/17/21 05/17/21 History [Ultracet] Allergies Allergy/AdvReac Type Severity Reaction Status Date / Time vitamin E (d-alpha Allergy Unknown Rash/Hives Verified 05/17/21 17:29 tocopherol) collagenase Clostridium Allergy Rash/Hives Verified 05/17/21 17:29 histolyticu [From Santyl] latex Allergy Rash/Hives Verified 05/17/21 17:29 pollen extracts AdvReac Mild Itching Verified 05/17/21 17:29 dial soap Allergy Unknown Rash/Hives Uncoded 05/07/21 12:30 Physical Exam Vitals: Vital Signs Temp Pulse Resp BP Pulse Ox 05/20/21 08:00 97.4 F L 86 18 120/74 98 05/20/21 01:24 98.2 F 85 15 115/64 97 05/19/21 19:40 98.7 F 75 16 103/62 95 05/19/21 16:57 98 05/19/21 13:59 98.4 F 79 17 105/69 99 Intake and Output 05/19/21 05/20/21 05/20/21 22:59 06:59 14:59 Output Total 150 600 Balance -150 -600 Output: Urine 150 600 Other: Voiding Method External Catheter External Catheter # Bowel Movements 2 1 Results CBC & Chem 7: 05/19/21 04:31 05/19/21 04:31 Labs: Abnormal Lab Results - Last 24 Hours (Table) 05/19/21 05/19/21 05/20/21 Range/Units 11:17 20:52 06:48 POC Glucose (mg/dL) 73 L 125 H 181 H (75-99) mg/dL Microbiology - Last 24 Hours (Table) 05/18/21 10:14 Urine Culture - Final Urine,Voided 05/17/21 16:19 Group A Strep Throat Culture - Final Throat 05/17/21 17:21 Blood Culture Gram Stain - Preliminary Blood Blood Culture - Preliminary Escherichia coli Assessment and Plan (1) Diabetic foot ulcer associated with type 2 diabetes mellitus, with fat layer exposed Current Visit: No Status: Acute Code(s): E11.621 - TYPE 2 DIABETES MELLITUS WITH FOOT ULCER; L97.502 - NON-PRS CHRONIC ULCER OTH PRT UNSP FOOT W FAT LAYER EXPOSED SNOMED Code(s): 6299664626334 (2) Nonhealing ulcer of right lower extremity with necrosis of muscle Current Visit: No Status: Acute Code(s): L97.913 - NON-PRS CHRONIC ULC UNSP PRT OF R LOW LEG W NECROS MUSCLE SNOMED Code(s): 30919060 (3) Venous stasis ulcer of right lower leg with edema of right lower leg Current Visit: No Status: Acute Code(s): I83.019 - VARICOSE VEINS OF RIGHT LOWER EXTREMITY W ULCER OF UNSP SITE; I83.891 - VARICOSE VEINS OF R LOW EXTREM WITH OTHER COMPLICATIONS; L97.919 - NON-PRS CHRONIC ULC UNSP PRT OF R LOW LEG W UNSP SEVERITY; R60.9 - EDEMA, UNSPECIFIED SNOMED Code(s): 36662480723348856
[2021-05-20] MEDS: SODIUM CHLORIDE 0.9% 1,000 ML IV SCH (14:50)
[2021-05-20 16:31] LABS: Glucose,Whole Blood 183 mg/dL (75-99)
[2021-05-20] MEDS ORDERED: IOPAMIDOL CONTRAST (ORAL USE) VIAL PO PRN (18:34)
--- NOTE | 2021-05-20 19:45 | XR ---
EXAMINATION TYPE: XR abdomen complete w decub DATE OF EXAM: 05/20/2021 COMPARISON: Same-day CT. HISTORY: Abdominal pain. TECHNIQUE: Supine, upright, and left side down lateral decubitus views of the abdomen are obtained. FINDINGS: There is limited evaluation due to the superimposed structures. No definite pneumoperitoneum. There is mild colonic gas. No definitively dilated bowel loops to sugge st bowel obstruction. Curvilinear density overlying the right lower chest and upper abdomen, compatible with surgical mater ial. No mass effects are seen. No unusual calcifications. IMPRESSION: Limited evaluation. Mild colonic gas. Otherwise no definite acute process.
--- NOTE | 2021-05-20 19:56 | P.PN ---
Progress Note - Text Progress Note Date: 05/20/21 Chief Complaint: Chills History of presenting complaint: This is a pleasant 60-year-old patient, visiting physicians Dr. Garcia. Chronic stable medical conditions include (above-knee amputation, chronic wound on the right lower extremity being followed by Dr. Scruggs from vascular, at the wound care center by Lauren, and also has home care. Chronic kidney disease stage III, diabetes mellitus type 2, hyperlipidemia, coronary artery disease with bypass, diabetic peripheral neuropathy, lower back pain from arthritis, uses a motorized wheelchair at baseline, severe secondary pulmonary hypertension, mitral and tricuspid regurgitation. She was just discharged from the hospital about 5 days ago following debridement of the right lower extremity. Suggestion was made for amputation of the toe. Patient was seen at the wound care center on this . Patient at home now starts feeling weak diet chills shaky. Decreased appetite. Found to have a fever in the ER, admitted with sepsis. Patient feeling tired and rundown. Per evaluation of ER physician no evidence of compartment syndrome. Patient presented with infected left foot big toe. Septic. Started on IV meropenem. May 19: Sitting up in bed. A bit tired. Getting IV meropenem. Oral intake fair. Discussed with Dr. Scruggs from vascular. Possible amputation and couple of days. Will order arterial Doppler to get an idea about. Blood flow May 20: saw patient this morning. Laying in bed. Tired. IV meropenem. No new issues Review of systems: Was done for constitutional, cardiovascular, GI, pulmonary. relevant finding as above Active Medications Acetaminophen (Acetaminophen Tab 325 Mg Tab) 650 mg PO Q6HR PRN PRN Reason: Mild Pain or Fever > 100.5 Last Admin: 05/19/21 16:52 Dose: 650 mg Documented by: Al Hydroxide/Mg Hydroxide (Mag Hydrox/Al Hydrox/Simeth 30 Ml Cup) 15 ml PO Q6HR PRN PRN Reason: Indigestion Alprazolam (Alprazolam 0.25 Mg Tab) 0.25 mg PO Q6HR PRN PRN Reason: Anxiety Calcium Carbonate/Glycine (Calcium Carbonate 500 Mg Chewable) 1,000 mg PO Q4HR PRN PRN Reason: Dyspepsia Last Admin: 05/18/21 22:46 Dose: 1,000 mg Documented by: Carvedilol (Carvedilol 3.125 Mg Tab) 3.125 mg PO BID-W/MEALS [facility] Last Admin: 05/20/21 16:58 Dose: 3.125 mg Documented by: Gabapentin (Gabapentin 300 Mg Cap) 300 mg PO HS [facility] Last Admin: 05/19/21 21:49 Dose: 300 mg Documented by: Sodium Chloride (Saline 0.9%) 1,000 mls @ 75 mls/hr IV .[id number] [facility] Last Admin: 05/20/21 14:50 Dose: 75 mls/hr Documented by: Meropenem 500 mg/ Sodium (Chloride) 100 mls @ 33.3 mls/hr IVPB Q12HR [facility]; Protocol Last Admin: 05/20/21 07:56 Dose: 33.3 mls/hr Documented by: Insulin Aspart (Insulin Aspart (Novolog) 100 Unit/Ml Vial) 0 unit SQ [facility]; Protocol Last Admin: 05/20/21 16:58 Dose: 3 unit Documented by: Iopamidol (Iopamidol Contrast (Oral Use) Vial) 30 ml PO Q60M PRN PRN Reason: CT Scan Stop: 05/21/21 18:35 Last Admin: 05/20/21 19:32 Dose: 30 ml Documented by: Lactulose (Lactulose 20 Gm/30 Ml Cup) 20 gm PO DAILY PRN PRN Reason: Constipation Loperamide HCl (Loperamide 2 Mg Cap) 2 mg PO BID PRN PRN Reason: Diarrhea Last Admin: 05/19/21 19:36 Dose: 2 mg Documented by: Magnesium Hydroxide (Magnesium Hydroxide 2,400 Mg/10 Ml Cup) 2,400 mg PO DAILY PRN PRN Reason: Constipation Melatonin (Melatonin 3 Mg Tablet) 3 mg PO HS PRN PRN Reason: Insomnia Naloxone HCl (Naloxone 0.4 Mg/Ml 1 Ml Vial) 0.2 mg IV Q2M PRN PRN Reason: Opioid Reversal Ondansetron HCl (Ondansetron 4 Mg/2 Ml Vial) 4 mg IVP Q8HR PRN PRN Reason: Nausea And Vomiting Sodium Bicarbonate (Sodium Bicarbonate Tab 650 Mg Tab) 650 mg PO TID [facility] Last Admin: 05/20/21 16:58 Dose: 650 mg Documented by: Tramadol/Acetaminophen (Tramadol-Acetaminop 37.5-325mg 1 Each Tab) 1 each PO TID PRN PRN Reason: Pain Last Admin: 05/20/21 14:52 Dose: 1 each Documented by: Past medical history to include: Left above-knee amputation, chronic wound to the right lower extremity, chronic kidney disease stage III, diabetes mellitus, hyperlipidemia, coronary artery disease with bypass, diabetic peripheral neuropathy, lower back pain from arthritis, GERD venous stasis ulcers, peripheral neuropathy, Social history: Lives alone. Motorized wheelchair. Home care. She was drinking heavily of April 1991. Smoking up to 3 packs a day up to 2011. Family history: Diabetes, MD, and resume, stroke Physical examination: VITAL SIGNS: 97.4, 86, 18, 120/74, 98% room air GENERAL: Reclining in bed, awake, EYES: Pupils equal. Conjunctiva normal. HEENT: External appearance of nose and ears normal, oral cavity grossly normal. NECK: JVD not raised; masses not palpable. HEART: First and second heart sounds are normal; no edema. LUNGS: Respiratory rate increased; decreased breath sounds. ABDOMEN: Soft, nontender, liver spleen not palpable, no masses palpable. PSYCH: Alert and oriented x3; mood and affect normal. NEUROLOGICAL: Cranial nerves grossly intact; no facial asymmetry, power and sensation grossly intact. EXTREMITIES: Left above-knee amputation. Right lower extremity wounds -included right big toe wound and ischemic changes in the foot INVESTIGATIONS, reviewed in the clinical context: May 19: WBC 9.3 hemoglobin 7.1 potassium 4.7 BUN 78 creatinine 2.71 Accu-Cheks 83, 95, 73 WBC 8.4 hemoglobin 6.4 platelets 241 potassium 4.9 BUN 18 creatinine 2.88 UA positive for leukoesterase, WBC, squamous epithelial cells Influenza type A, type B, sour [place] PCR: Non-not detected Chest x-ray film: No infiltrates CT right lower extremity without contrast: Subcutis edema. No evidence of abscess. Previous studies: 2-D echocardiogram: Moderate concentric LVH. EF 45-50%. Moderate to severe tricuspid regurgitation. Severe pulmonary hypertension. Assessment and plan: -Sepsis from infected right lower extremity wound IV fluids. IV meropenem -Acute on chronic right lower extremity wounds from venous stasis ulcers, especially infected right big toe: Slow to respond due for right big toe amputation, on wednesday, by Dr. Scruggs. IV meropenem -Chronic kidney disease stage III from diabetic nephropathy and nephrosclerosis Follow renal function - Morbid obesity BMI 43.8 Weight loss measures. Follow-up with PCP -Diabetes mellitus type 2 , uncontrolled with hypoglycemia Levemir -hold. Follow Accu-Cheks, sliding scale -Coronary artery disease with prior history of bypass Aspirin, Coreg, Plavix -Diabetic peripheral neuropathy -Chronic low back pain from arthritis Tylenol as needed -Chronic medical debility Uses a motorized wheelchair -Secondary severe pulmonary hypertension Follow clinically -Moderate mitral and moderate to severe tricuspid regurgitation Follow clinically IV meropenem. IV fluids. Continue current medication treatment plan.
[2021-05-20 20:04] LABS: ALT 9 U/L (4-34); AST 19 U/L (14-36); African American GFR (CKD) 23 (>60 ml/min/1.73 sqM); Albumin 2.1 g/dL (3.5-5.0); Albumin/Globulin Ratio 0.8; Alkaline Phosphatase 189 U/L (38-126); Anion Gap 7 mmol/L; Blood Urea Nitrogen 77 mg/dL (7-17); Calcium 7.1 mg/dL (8.4-10.2); Carbon Dioxide 18 mmol/L (22-30); Chloride 109 mmol/L (98-107); Globulin 2.7 g/dL; Glucose 156 mg/dL (74-99); Non-African American GFR(CKD) 20 (>60 ml/min/1.73 sqM); Potassium 4.9 mmol/L (3.5-5.1); Sodium 134 mmol/L (137-145); Total Bilirubin 0.2 mg/dL (0.2-1.3); Total Protein 4.8 g/dL (6.3-8.2)
[2021-05-20 20:25] LABS: Glucose,Whole Blood 191 mg/dL (75-99)
--- NOTE | 2021-05-20 22:39 | CT ---
EXAMINATION TYPE: CT abdomen pelvis wo con DATE OF EXAM: 05/20/2021 COMPARISON: None HISTORY: Abdomen pain. Pt refused to drink oral contrast. CT DLP: 1571.2 mGycm Automated exposure control for dose reduction was used. Images obtained from the diaphragm to the floor the pelvis without contrast. There is mild right pleural effusion. Heart appears enlarged. There is subcutaneous edema around the abdomen and pelvis. There is no pericardial effusion. Liver and spleen are intact. The bile ducts are not dilated. Spleen is enlarged and measures 16 cm. Liver is enlarged and measures 23 cm. There are large multiple calcified gallstones. The bile ducts are not dilated. There is no evidence of pancreat ic mass. There is no adrenal mass. There are bilateral renal calculi and more on the right side. Measure up to 1 cm. There is right-sided hydronephrosis and hydroureter. There is probably 8 mm calcu rachel in the lower right ureter close to the ureterovesical junction. Bladder distends smoothly. There is retained fecal material in the rectum that measures 7 cm. There is no inguinal hernia. I see no ev idence of a bowel obstruction. There is small amount of ascites fluid in the right paracolic gutter. Lumbar vertebra have normal alignment. There is no compression fracture. Posterior elements are intac t. I see no pelvic mass. The bony pelvis is intact. There is no evidence of a hip fracture. There is extensive atherosclerotic vascular calcification. There is no aortic aneurysm. There is no evidence o f free air. IMPRESSION: Subcutaneous edema. Right pleural effusion and ascites probably due to chronic congestive heart failu re. Multiple bilateral renal calculi. There is probably an obstructing large calculus in the distal right ureter with right-sided hydronephrosis and hydroureter. Multiple calcified gallstones. Hepatosplenomegaly.
[2021-05-20] MEDS: GABAPENTIN 300 MG CAP PO SCH (22:51)
--- NOTE | 2021-05-20 23:17 | PN ---
PROGRESS NOTE DATE OF SERVICE: 05/20/2021 REASON FOR FOLLOWUP: Right lower extremity wound and bacteremia. INTERVAL HISTORY: Patient is afebrile. The patient is breathing currently comfortably. No chest pain or shortness of breath. No cough, no abdominal pain or any worsening pain to the right leg wound. PHYSICAL EXAMINATION: Blood pressure 104/63 with a pulse of 76, temperature 97.9. He is 97% on room air. General description is a middle-aged female lying in bed in no distress. Respiratory system: Unlabored breathing, clear to auscultation anteriorly. Heart S1, S2. Regular rate and rhythm. Abdomen soft, no tenderness. Leg is currently dressed up. No obvious drainage on the dressing. LABS: BUN of 77, creatinine is 2.55. DIAGNOSTIC IMPRESSION AND PLAN: Patient with ESBL E. coli bacteremia. Concern for the right lower extremity infected wound and pressure ulcer of the right heel area. Patient is covered with meropenem. Blood cultures to document clearance of bacteremia, possible amputation of the right big toe per vascular. Continue supportive care. MMODL / IJN: [id number] /
[2021-05-21] MEDS: SODIUM CHLORIDE 0.9% 1,000 ML IV SCH ×3 (03:04→12:59)
[2021-05-21 06:53] LABS: Anisocytosis Slight; Basophils # (A) 0.1 k/uL (0-0.2); Basophils % (A) 1 %; Eosinophils # (A) 0.3 k/uL (0-0.7); Eosinophils % (A) 5 %; HCT 23.9 % (34.0-46.0); Hypochromasia Marked; Lymphocytes # (A) 0.4 k/uL (1.0-4.8); Lymphocytes % (A) 7 %; MCH 24.7 pg (25.0-35.0); MCHC 29.1 g/dL (31.0-37.0); MCV 84.7 fL (80.0-100.0); Mean Platelet Volume 8.1; Monocytes # (A) 0.5 k/uL (0-1.0); Monocytes % (A) 7 %; Neutrophils # (A) 5.1 k/uL (1.3-7.7); Neutrophils % (A) 77 %; Platelet Count 276 k/uL (150-450); RBC 2.83 m/uL (3.80-5.40); RDW 16.4 % (11.5-15.5); WBC 6.7 k/uL (3.8-10.6)
[2021-05-21 06:59] LABS: Glucose,Whole Blood 123 mg/dL (75-99)
[2021-05-21 07:05] LABS: African American GFR (CKD) 25 (>60 ml/min/1.73 sqM); Anion Gap 7 mmol/L; Blood Urea Nitrogen 74 mg/dL (7-17); C Reactive Protein 6.6 mg/dL (<1.0); Calcium 7.4 mg/dL (8.4-10.2); Carbon Dioxide 18 mmol/L (22-30); Chloride 111 mmol/L (98-107); Glucose 115 mg/dL (74-99); Non-African American GFR(CKD) 22 (>60 ml/min/1.73 sqM); Sodium 136 mmol/L (137-145)
[2021-05-21] MEDS: INSULIN ASPART (NovoLOG) 100 UNIT/ML VIAL SQ SCH ×4 (07:36→20:44)
[2021-05-21] MEDS: MEROPENEM 500 MG in SODIUM CHLORIDE 0.9% 100 ML IVPB SCH ×2 (07:37→20:44)
[2021-05-21] MEDS: carvediloL 3.125 MG TAB PO SCH ×2 (07:37→16:24)
[2021-05-21] MEDS: SODIUM BICARBONATE TAB 650 MG TAB PO SCH ×3 (07:37→20:44)
[2021-05-21 11:21] LABS: Glucose,Whole Blood 130 mg/dL (75-99)
[2021-05-21] MEDS ORDERED: diphenhydrAMINE 50 MG/ML 1 ML VIAL ONE (12:55)
[2021-05-21] MEDS ORDERED: PROPOFOL 10 MG/ML 20 ML VIAL IV ONE (12:55)
[2021-05-21] MEDS ORDERED: MIDAZOLAM 2 MG/2 ML VIAL ONE (12:55)
[2021-05-21] MEDS ORDERED: LIDOCAINE 1% INJ 10MG/ML (20 ML MDV) ONE (12:55)
[2021-05-21] MEDS ORDERED: KETAMINE 10 MG/ML 20 ML VIAL ONE (12:55)
[2021-05-21] MEDS ORDERED: LIDOCAINE 1% INJ 10MG/ML (20 ML MDV) SQ ONE (13:15)
[2021-05-21 13:45] LABS: Erythrocyte Sedimentation Rate 72 mm/hr (0-20)
[2021-05-21 14:31] LABS: Glucose,Whole Blood 134 mg/dL (75-99)
--- NOTE | 2021-05-21 14:40 | P.OP ---
Date of Procedure: 05/21/21 Description of Procedure: SURGEON: Izabel Scruggs DO FUR GLAZER: None PREOPERATIVE DIAGNOSIS: [Dry gangrene of right great toe, osteomyelitis]. POSTOPERATIVE DIAGNOSIS: [Same]. OPERATION: [Right great toe ray amputation. ANESTHESIA: Monitored anesthesia care ESTIMATED BLOOD LOSS: 15 mL SPECIMENS REMOVED: Right great toe COMPLICATIONS: None immediately apparent OPERATIVE FINDINGS: Patient is a 60-year-old female with a past history of chronic wounds in the right lower extremity and fascia is done under debridement. She recently had imaging which revealed osteomyelitis of the right great toe which was identified clinically due to exposed bone. It was discussed that she'll likely benefit from a great toe amputation. Given her array of wounds otherwise, if she were to need further amputation she would like the require an above-knee amputation due to the inability to heal other wounds. Overall they look good otherwise at this time DESCRIPTION OF PROCEDURE: This patient was brought to the operating room, and given local and IV sedation. The operative foot was prepped and draped in sterile manner. An incision was made at the base of the great toe deep into skin and fascia on plantar and dorsal aspect until we reached the head of the metatarsal bone. [This patient had osteomyelitis of the [right foot]. The head of the metatarsal was from the great toe and had osteomyelitis of the head of the metatarsal bone. The tendons were divided in plantar and dorsal aspects. The great toe was removed at the mid metatarsal. At this level bony structures appeared normal. There were minimal bleeding points which were electrocoagulated and some of them were suture ligated. Base of the wound looked clean, and the wound was copiously irrigated with saline. Tissue was approximated with 3-0 Vicryl interrupted sutures and the skin reapproximated with interrupted sutures of 3-0 nylon. Hemostasis was well controlled and pressure dressing was applied. The patient tolerated the procedure well.
--- NOTE | 2021-05-21 16:12 | P.GSCN ---
<Catrachita Barney - Last Filed: 05/21/21 16:00> History of Present Illness Consult date: 05/21/21 History of present illness: CHIEF COMPLAINT: Fever HISTORY OF PRESENT ILLNESS: This is a 60-year-old female with multiple medical issues. She does have known coronary artery disease with prior CABG and on Plavix. As well as diabetes and chronic kidney disease. She presented to the hospital with fever she has a known diabetic foot ulcer of the right lower extremity and has required debridement in the past. She is admitted to the hospital with sepsis related to her right lower extremity wound. She is scheduled for right great toe amputation today. Surgical service was consult in regards to abdominal pain. Patient had computed tomography scan of abdomen and pelvis showed subcutaneous edema. Right pleural effusion and ascites probably due to chronic congestive heart failure. Multiple bilateral renal calculi. There is probably not obstructing large calculus in the distal right ureter with right-sided hydronephrosis and hydroureter. Multiple calcified gallstones. Hepatosplenomegaly. Patient denies any abdominal pain. She denies any pain after eating. She denies any nausea or vomiting. She denies any burning with urination. Denies any hematuria. She does report having a known history of gallstones. PAST MEDICAL HISTORY: See list. PAST SURGICAL HISTORY: See list. MEDICATIONS: See list. ALLERGIES: See list. SOCIAL HISTORY: No illicit drug use. REVIEW OF SYSTEMS: CONSTITUTIONAL: Denies fever or chills. HEENT: Denies blurred vision, vision changes, or eye pain. Denies hemoptysis CARDIOVASCULAR: Denies chest pain or pressure. RESPIRATORY: No shortness of breath. GASTROINTESTINAL: See HPI for pertinent findings HEMATOLOGIC: Denies bleeding disorders. GENITOURINARY: Denies any blood in urine or increased urinary frequency. SKIN: Denies pruitis. Denies rash. PHYSICAL EXAM: VITAL SIGNS: Reviewed GENERAL: Well-developed in no acute distress. HEENT: No sclera icterus. Extraocular movements grossly intact. Moist buccal mucosa. Head is atraumatic, normocephalic. No nasal drainage. ABDOMEN: Soft. Obese. Nondistended. Non-tender. She does have small bruise on the left side of her abdomen NEUROLOGIC: Alert and oriented. Cranial nerves II through XII grossly intact. LABORATORY DATA: WBC 6.7 hemoglobin 7.0 platelets 276 Sodium 136 potassium 5.0 creatinine 2.37 LFTs normal UA with contamination 12 squamous epithelial cells IMAGING: Computed tomography scan findings as stated above ASSESSMENT: 1. Abdominal pain. Patient denies any abdominal pain, nausea or vomiting. CAT scan does show evidence of multiple gallstones. PLAN: -No surgical intervention planned -Continue supportive care Physician Seamless Tube Roller note has been reviewed by physician. Signing provider agrees with the documented findings, assessment, and plan of care. Past Medical History Past Medical History: Coronary Artery Disease (CAD), Heart Failure, COPD, Diabetes Mellitus, GERD/Reflux, Hyperlipidemia, Hypertension, Myocardial Infarction ([place]), Osteoarthritis (OA), Renal Disease, Rheumatoid Arthritis (RA), Skin Disorder, Vascular Disorder Additional Past Medical History / Comment(s): venous stasis ulcers, hx cellulitis, 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 Last Myocardial Infarction Date:: 2011 History of Any Multi-Drug Resistant Organisms: ESBL, MRSA Year Discovered:: 05/17/21 ESBL / 03/20/19 MRSA MDRO Source:: ESBL URINE/ MRSA BLOOD Past Surgical History: Section Additional Past Surgical History / Comment(s): 2011 CABG 2 vessel, D&C, C- sections x 2, bilateral lower leg/heels debrided., left above the knee amputation (Oct 2020). 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 Denies tobacco smoking or alcohol use. Medically disabled. No experience or international travel. No animals in the home. She has a nebulizer and a glucometer. She has [employer] aide 3 days a week for cleaning/showering. Comes to wound center for leg wounds. Smoking Status: Former smoker Past Alcohol Use History: None Reported Additional Past Alcohol Use History / Comment(s): stopped smoking in 2011. HX OF 3PPD., In the past used to drink heavily but none since 1990 Past Drug Use History: None Reported - Past Family History Mother Additional Family Medical History / Comment(s): anuerysm Father Family Medical History: CVA/TIA, Diabetes Mellitus, Myocardial Infarction ([place]) Sister(s) Additional Family Medical History / Comment(s): one sister had "hole in her heart" and a kidney transplant and another sister had ms. Medications and Allergies Home Medications Medication Instructions Recorded Confirmed Type Carvedilol [Coreg] 12.5 mg PO BID 08/17/18 05/17/21 History Clopidogrel [Plavix] 75 mg PO DAILY 08/17/18 05/17/21 History Gabapentin [Neurontin] 300 mg PO HS #3 capsule 10/21/20 05/17/21 Rx INSULIN ASPART (NovoLOG) [NovoLOG See Protocol SQ AC-TID PRN 05/07/21 05/17/21 History (formulary)] Loperamide [Imodium] 2 mg PO BID PRN 05/07/21 05/17/21 History Pantoprazole Sodium 40 mg PO DAILY 05/07/21 05/17/21 History Insulin Detemir (Levemir) [Levemir] 20 unit SQ DAILY PRN 05/17/21 05/17/21 History hydrOXYzine HCL [Atarax] 25 mg PO TID PRN 05/17/21 05/17/21 History traMADol-ACETAMINOP 37.5-325MG 1 tab PO TID PRN 05/17/21 05/17/21 History [Ultracet] Allergies Allergy/AdvReac Type Severity Reaction Status Date / Time vitamin E (d-alpha Allergy Unknown Rash/Hives Verified 05/17/21 17:29 tocopherol) collagenase Clostridium Allergy Rash/Hives Verified 05/17/21 17:29 histolyticu [From Santyl] latex Allergy Rash/Hives Verified 05/17/21 17:29 pollen extracts AdvReac Mild Itching Verified 05/17/21 17:29 dial soap Allergy Unknown Rash/Hives Uncoded 05/07/21 12:30 Surgical - Exam Vital Signs Temp Pulse Resp BP Pulse Ox 103 F H 87 20 125/62 99 05/17/21 14:50 05/17/21 14:50 05/17/21 14:50 05/17/21 14:50 05/17/21 14:50 Results - Labs 05/21/21 06:24 05/21/21 06:24 Abnormal Lab Results - Last 24 Hours (Table) 05/20/21 05/20/21 05/20/21 Range/Units 16:30 19:36 20:21 RBC (3.80-5.40) m/uL Hgb (11.4-16.0) gm/dL Hct (34.0-46.0) % MCH (25.0-35.0) pg MCHC (31.0-37.0) g/dL RDW (11.5-15.5) % Lymphocytes # (1.0-4.8) k/uL ESR (0-20) mm/hr Sodium 134 L (137-145) mmol/L Chloride 109 H (98-107) mmol/L Carbon Dioxide 18 L (22-30) mmol/L BUN 77 H (7-17) mg/dL Creatinine 2.55 H (0.52-1.04) mg/dL Glucose 156 H (74-99) mg/dL POC Glucose (mg/dL) 183 H 191 H (75-99) mg/dL Calcium 7.1 L (8.4-10.2) mg/dL Alkaline Phosphatase 189 H (38-126) U/L C-Reactive Protein (<1.0) mg/dL Total Protein 4.8 L (6.3-8.2) g/dL Albumin 2.1 L (3.5-5.0) g/dL Crossmatch 05/21/21 05/21/21 05/21/21 Range/Units 06:24 06:24 06:49 RBC 2.83 L (3.80-5.40) m/uL Hgb 7.0 L (11.4-16.0) gm/dL Hct 23.9 L (34.0-46.0) % MCH 24.7 L (25.0-35.0) pg MCHC 29.1 L (31.0-37.0) g/dL RDW 16.4 H (11.5-15.5) % Lymphocytes # 0.4 L (1.0-4.8) k/uL ESR 72 H (0-20) mm/hr Sodium 136 L (137-145) mmol/L Chloride 111 H (98-107) mmol/L Carbon Dioxide 18 L (22-30) mmol/L BUN 74 H (7-17) mg/dL Creatinine 2.37 H (0.52-1.04) mg/dL Glucose 115 H (74-99) mg/dL POC Glucose (mg/dL) 123 H (75-99) mg/dL Calcium 7.4 L (8.4-10.2) mg/dL Alkaline Phosphatase (38-126) U/L C-Reactive Protein 6.6 H (<1.0) mg/dL Total Protein (6.3-8.2) g/dL Albumin (3.5-5.0) g/dL Crossmatch 05/21/21 05/21/21 05/21/21 Range/Units 08:24 11:19 14:30 RBC (3.80-5.40) m/uL Hgb (11.4-16.0) gm/dL Hct (34.0-46.0) % MCH (25.0-35.0) pg MCHC (31.0-37.0) g/dL RDW (11.5-15.5) % Lymphocytes # (1.0-4.8) k/uL ESR (0-20) mm/hr Sodium (137-145) mmol/L Chloride (98-107) mmol/L Carbon Dioxide (22-30) mmol/L BUN (7-17) mg/dL Creatinine (0.52-1.04) mg/dL Glucose (74-99) mg/dL POC Glucose (mg/dL) 130 H 134 H (75-99) mg/dL Calcium (8.4-10.2) mg/dL Alkaline Phosphatase (38-126) U/L C-Reactive Protein (<1.0) mg/dL Total Protein (6.3-8.2) g/dL Albumin (3.5-5.0) g/dL Crossmatch See Detail Microbiology - Last 24 Hours (Table) 05/17/21 17:21 Blood Culture Gram Stain - Final Blood Blood Culture - Final Escherichia coli Diabetes panel 05/20/21 05/21/21 Range/Units 19:36 06:24 Sodium 134 L 136 L (137-145) mmol/L Potassium 4.9 5.0 (3.5-5.1) mmol/L Chloride 109 H 111 H (98-107) mmol/L Carbon Dioxide 18 L 18 L (22-30) mmol/L BUN 77 H 74 H (7-17) mg/dL Creatinine 2.55 H 2.37 H (0.52-1.04) mg/dL Glucose 156 H 115 H (74-99) mg/dL Calcium 7.1 L 7.4 L (8.4-10.2) mg/dL AST 19 (14-36) U/L ALT 9 (4-34) U/L Alkaline Phosphatase 189 H (38-126) U/L Total Protein 4.8 L (6.3-8.2) g/dL Albumin 2.1 L (3.5-5.0) g/dL Calcium panel 05/20/21 05/21/21 Range/Units 19:36 06:24 Calcium 7.1 L 7.4 L (8.4-10.2) mg/dL Albumin 2.1 L (3.5-5.0) g/dL Pituitary panel 05/20/21 05/21/21 Range/Units 19:36 06:24 Sodium 134 L 136 L (137-145) mmol/L Potassium 4.9 5.0 (3.5-5.1) mmol/L Chloride 109 H 111 H (98-107) mmol/L Carbon Dioxide 18 L 18 L (22-30) mmol/L BUN 77 H 74 H (7-17) mg/dL Creatinine 2.55 H 2.37 H (0.52-1.04) mg/dL Glucose 156 H 115 H (74-99) mg/dL Calcium 7.1 L 7.4 L (8.4-10.2) mg/dL Adrenal panel 05/20/21 05/21/21 Range/Units 19:36 06:24 Sodium 134 L 136 L (137-145) mmol/L Potassium 4.9 5.0 (3.5-5.1) mmol/L Chloride 109 H 111 H (98-107) mmol/L Carbon Dioxide 18 L 18 L (22-30) mmol/L BUN 77 H 74 H (7-17) mg/dL Creatinine 2.55 H 2.37 H (0.52-1.04) mg/dL Glucose 156 H 115 H (74-99) mg/dL Calcium 7.1 L 7.4 L (8.4-10.2) mg/dL Total Bilirubin 0.2 (0.2-1.3) mg/dL AST 19 (14-36) U/L ALT 9 (4-34) U/L Alkaline Phosphatase 189 H (38-126) U/L Total Protein 4.8 L (6.3-8.2) g/dL Albumin 2.1 L (3.5-5.0) g/dL <Alphonse Ibarra - Last Filed: 05/21/21 18:33> History of Present Illness History of present illness: As above. Patient with CAT scan evidence of gallstones. No definite inflammation. She does have what appears to represent a obstructing ureteral stone. Continue diet as tolerated. Will follow. Surgical - Exam Vital Signs Temp Pulse Resp BP Pulse Ox 103 F H 87 20 125/62 99 05/17/21 14:50 05/17/21 14:50 05/17/21 14:50 05/17/21 14:50 05/17/21 14:50 Results - Labs 05/21/21 06:24 05/21/21 06:24 Abnormal Lab Results - Last 24 Hours (Table) 05/20/21 05/20/21 05/21/21 Range/Units 19:36 20:21 06:24 RBC 2.83 L (3.80-5.40) m/uL Hgb 7.0 L (11.4-16.0) gm/dL Hct 23.9 L (34.0-46.0) % MCH 24.7 L (25.0-35.0) pg MCHC 29.1 L (31.0-37.0) g/dL RDW 16.4 H (11.5-15.5) % Lymphocytes # 0.4 L (1.0-4.8) k/uL ESR 72 H (0-20) mm/hr Sodium 134 L (137-145) mmol/L Chloride 109 H (98-107) mmol/L Carbon Dioxide 18 L (22-30) mmol/L BUN 77 H (7-17) mg/dL Creatinine 2.55 H (0.52-1.04) mg/dL Glucose 156 H (74-99) mg/dL POC Glucose (mg/dL) 191 H (75-99) mg/dL Calcium 7.1 L (8.4-10.2) mg/dL Alkaline Phosphatase 189 H (38-126) U/L C-Reactive Protein (<1.0) mg/dL Total Protein 4.8 L (6.3-8.2) g/dL Albumin 2.1 L (3.5-5.0) g/dL Crossmatch 05/21/21 05/21/21 05/21/21 Range/Units 06:24 06:49 08:24 RBC (3.80-5.40) m/uL Hgb (11.4-16.0) gm/dL Hct (34.0-46.0) % MCH (25.0-35.0) pg MCHC (31.0-37.0) g/dL RDW (11.5-15.5) % Lymphocytes # (1.0-4.8) k/uL ESR (0-20) mm/hr Sodium 136 L (137-145) mmol/L Chloride 111 H (98-107) mmol/L Carbon Dioxide 18 L (22-30) mmol/L BUN 74 H (7-17) mg/dL Creatinine 2.37 H (0.52-1.04) mg/dL Glucose 115 H (74-99) mg/dL POC Glucose (mg/dL) 123 H (75-99) mg/dL Calcium 7.4 L (8.4-10.2) mg/dL Alkaline Phosphatase (38-126) U/L C-Reactive Protein 6.6 H (<1.0) mg/dL Total Protein (6.3-8.2) g/dL Albumin (3.5-5.0) g/dL Crossmatch See Detail 05/21/21 05/21/21 05/21/21 Range/Units 11:19 14:30 16:21 RBC (3.80-5.40) m/uL Hgb (11.4-16.0) gm/dL Hct (34.0-46.0) % MCH (25.0-35.0) pg MCHC (31.0-37.0) g/dL RDW (11.5-15.5) % Lymphocytes # (1.0-4.8) k/uL ESR (0-20) mm/hr Sodium (137-145) mmol/L Chloride (98-107) mmol/L Carbon Dioxide (22-30) mmol/L BUN (7-17) mg/dL Creatinine (0.52-1.04) mg/dL Glucose (74-99) mg/dL POC Glucose (mg/dL) 130 H 134 H 135 H (75-99) mg/dL Calcium (8.4-10.2) mg/dL Alkaline Phosphatase (38-126) U/L C-Reactive Protein (<1.0) mg/dL Total Protein (6.3-8.2) g/dL Albumin (3.5-5.0) g/dL Crossmatch Microbiology - Last 24 Hours (Table) 05/17/21 17:21 Blood Culture Gram Stain - Final Blood Blood Culture - Final Escherichia coli Diabetes panel 05/20/21 05/21/21 Range/Units 19:36 06:24 Sodium 134 L 136 L (137-145) mmol/L Potassium 4.9 5.0 (3.5-5.1) mmol/L Chloride 109 H 111 H (98-107) mmol/L Carbon Dioxide 18 L 18 L (22-30) mmol/L BUN 77 H 74 H (7-17) mg/dL Creatinine 2.55 H 2.37 H (0.52-1.04) mg/dL Glucose 156 H 115 H (74-99) mg/dL Calcium 7.1 L 7.4 L (8.4-10.2) mg/dL AST 19 (14-36) U/L ALT 9 (4-34) U/L Alkaline Phosphatase 189 H (38-126) U/L Total Protein 4.8 L (6.3-8.2) g/dL Albumin 2.1 L (3.5-5.0) g/dL Calcium panel 05/20/21 05/21/21 Range/Units 19:36 06:24 Calcium 7.1 L 7.4 L (8.4-10.2) mg/dL Albumin 2.1 L (3.5-5.0) g/dL Pituitary panel 05/20/21 05/21/21 Range/Units 19:36 06:24 Sodium 134 L 136 L (137-145) mmol/L Potassium 4.9 5.0 (3.5-5.1) mmol/L Chloride 109 H 111 H (98-107) mmol/L Carbon Dioxide 18 L 18 L (22-30) mmol/L BUN 77 H 74 H (7-17) mg/dL Creatinine 2.55 H 2.37 H (0.52-1.04) mg/dL Glucose 156 H 115 H (74-99) mg/dL Calcium 7.1 L 7.4 L (8.4-10.2) mg/dL Adrenal panel 05/20/21 05/21/21 Range/Units 19:36 06:24 Sodium 134 L 136 L (137-145) mmol/L Potassium 4.9 5.0 (3.5-5.1) mmol/L Chloride 109 H 111 H (98-107) mmol/L Carbon Dioxide 18 L 18 L (22-30) mmol/L BUN 77 H 74 H (7-17) mg/dL Creatinine 2.55 H 2.37 H (0.52-1.04) mg/dL Glucose 156 H 115 H (74-99) mg/dL Calcium 7.1 L 7.4 L (8.4-10.2) mg/dL Total Bilirubin 0.2 (0.2-1.3) mg/dL AST 19 (14-36) U/L ALT 9 (4-34) U/L Alkaline Phosphatase 189 H (38-126) U/L Total Protein 4.8 L (6.3-8.2) g/dL Albumin 2.1 L (3.5-5.0) g/dL
[2021-05-21 16:24] LABS: Glucose,Whole Blood 135 mg/dL (75-99)
--- NOTE | 2021-05-21 16:40 | PN ---
PROGRESS NOTE DATE OF SERVICE: 05/21/2021 REASON FOR FOLLOWUP: ESBL E coli bacteremia, possible source right lower extremity wound and cellulitis. INTERVAL HISTORY: Patient is afebrile. The patient is breathing comfortably. The patient is scheduled for amputation of the right big toe completed this afternoon. The patient denies any chest pain, shortness of breath or cough. No abdominal pain. No diarrhea. PHYSICAL EXAMINATION: Blood pressure is 126/58 with a pulse of 74, temperature is 97.5. She is 100% on 2 L nasal cannula. General description is a middle-aged female lying in bed in no distress. Respiratory system: Unlabored breathing, clear to auscultation anteriorly. Heart S1, S2. Regular rate and rhythm. Abdomen soft, no tenderness. Right leg is currently dressed. No drainage on the dressing. LABS: Hemoglobin is 7, white count 6.7, BUN of 24, creatinine is 2.37. DIAGNOSTIC IMPRESSION AND PLAN: Patient with ESBL E coli bacteremia, source right leg lower extremity wound. CT abdomen and pelvis did not show any acute abnormality. Patient is covered with meropenem, transition to Invanz on discharge. The patient should take for at least two weeks from negative blood cultures and close outpatient followup. MMODL / IJN: [id number] /
[2021-05-21] MEDS: traMADol-ACETAMINOP 37.5-325MG 1 EACH TAB PO PRN (19:36)
--- NOTE | 2021-05-21 20:23 | P.PN ---
Progress Note - Text Progress Note Date: 05/21/21 Chief Complaint: Chills History of presenting complaint: This is a pleasant 60-year-old patient, visiting physicians Dr. Garcia. Chronic stable medical conditions include (above-knee amputation, chronic wound on the right lower extremity being followed by Dr. Scruggs from vascular, at the wound care center by Lauren, and also has home care. Chronic kidney disease stage III, diabetes mellitus type 2, hyperlipidemia, coronary artery disease with bypass, diabetic peripheral neuropathy, lower back pain from arthritis, uses a motorized wheelchair at baseline, severe secondary pulmonary hypertension, mitral and tricuspid regurgitation. She was just discharged from the hospital about 5 days ago following debridement of the right lower extremity. Suggestion was made for amputation of the toe. Patient was seen at the wound care center on this . Patient at home now starts feeling weak diet chills shaky. Decreased appetite. Found to have a fever in the ER, admitted with sepsis. Patient feeling tired and rundown. Per evaluation of ER physician no evidence of compartment syndrome. Patient presented with infected left foot big toe. Septic. Started on IV meropenem. May 19: Sitting up in bed. A bit tired. Getting IV meropenem. Oral intake fair. Discussed with Dr. Scruggs from vascular. Possible amputation and couple of days. Will order arterial Doppler to get an idea about. Blood flow May 20: saw patient this morning. Laying in bed. Tired. IV meropenem. No new issues May 21: Saw the patient this morning. Pending surgery later this afternoon. Breathing stable. Patient had abnormal pain yesterday evening. Computed t omography scan did show right ureter obstruction with stone and hydronephrosis. Urology consulted. Results discussed with the patient. Late in the day patient underwent right great toe ray amputation. Review of systems: Was done for constitutional, cardiovascular, GI, pulmonary. relevant finding as above Active Medications Acetaminophen (Acetaminophen Tab 325 Mg Tab) 650 mg PO Q6HR PRN PRN Reason: Mild Pain or Fever > 100.5 Last Admin: 05/19/21 16:52 Dose: 650 mg Documented by: Al Hydroxide/Mg Hydroxide (Mag Hydrox/Al Hydrox/Simeth 30 Ml Cup) 15 ml PO Q6HR PRN PRN Reason: Indigestion Alprazolam (Alprazolam 0.25 Mg Tab) 0.25 mg PO Q6HR PRN PRN Reason: Anxiety Calcium Carbonate/Glycine (Calcium Carbonate 500 Mg Chewable) 1,000 mg PO Q4HR PRN PRN Reason: Dyspepsia Last Admin: 05/18/21 22:46 Dose: 1,000 mg Documented by: Carvedilol (Carvedilol 3.125 Mg Tab) 3.125 mg PO BID-W/MEALS [facility] Last Admin: 05/21/21 16:24 Dose: 3.125 mg Documented by: Gabapentin (Gabapentin 300 Mg Cap) 300 mg PO HS [facility] Last Admin: 05/20/21 22:51 Dose: 300 mg Documented by: Sodium Chloride (Saline 0.9%) 1,000 mls @ 75 mls/hr IV .[id number] [facility] Last Admin: 05/21/21 12:59 Dose: 400 mls Documented by: Meropenem 500 mg/ Sodium (Chloride) 100 mls @ 33.3 mls/hr IVPB Q12HR [facility]; Protocol Last Admin: 05/21/21 07:37 Dose: 33.3 mls/hr Documented by: Insulin Aspart (Insulin Aspart (Novolog) 100 Unit/Ml Vial) 0 unit SQ [facility]; Protocol Last Admin: 05/21/21 16:25 Dose: 1 unit Documented by: Lactulose (Lactulose 20 Gm/30 Ml Cup) 20 gm PO DAILY PRN PRN Reason: Constipation Loperamide HCl (Loperamide 2 Mg Cap) 2 mg PO BID PRN PRN Reason: Diarrhea Last Admin: 05/19/21 19:36 Dose: 2 mg Documented by: Magnesium Hydroxide (Magnesium Hydroxide 2,400 Mg/10 Ml Cup) 2,400 mg PO DAILY PRN PRN Reason: Constipation Melatonin (Melatonin 3 Mg Tablet) 3 mg PO HS PRN PRN Reason: Insomnia Naloxone HCl (Naloxone 0.4 Mg/Ml 1 Ml Vial) 0.2 mg IV Q2M PRN PRN Reason: Opioid Reversal Ondansetron HCl (Ondansetron 4 Mg/2 Ml Vial) 4 mg IVP Q8HR PRN PRN Reason: Nausea And Vomiting Last Admin: 05/21/21 12:48 Dose: 4 mg Documented by: Sodium Bicarbonate (Sodium Bicarbonate Tab 650 Mg Tab) 650 mg PO TID [facility] Last Admin: 05/21/21 16:24 Dose: 650 mg Documented by: Tramadol/Acetaminophen (Tramadol-Acetaminop 37.5-325mg 1 Each Tab) 1 each PO TID PRN PRN Reason: Pain Last Admin: 05/21/21 19:36 Dose: 1 each Documented by: Past medical history to include: Left above-knee amputation, chronic wound to the right lower extremity, chronic kidney disease stage III, diabetes mellitus, hyperlipidemia, coronary artery disease with bypass, diabetic peripheral neuropathy, lower back pain from arthritis, GERD venous stasis ulcers, peripheral neuropathy, Social history: Lives alone. Motorized wheelchair. Home care. She was drinking heavily of April 1991. Smoking up to 3 packs a day up to 2011. Family history: Diabetes, [place], and resume, stroke Physical examination: VITAL SIGNS: 98.4, 82, 18, 123/74, 96% room air GENERAL: Reclining in bed, awake, EYES: Pupils equal. Conjunctiva normal. HEENT: External appearance of nose and ears normal, oral cavity grossly normal. NECK: JVD not raised; masses not palpable. HEART: First and second heart sounds are normal; no edema. LUNGS: Respiratory rate increased; decreased breath sounds. ABDOMEN: Soft, nontender, liver spleen not palpable, no masses palpable. PSYCH: Alert and oriented x3; mood and affect normal. NEUROLOGICAL: Cranial nerves grossly intact; no facial asymmetry, power and sensation grossly intact. EXTREMITIES: Left above-knee amputation. Right lower extremity wounds -included right big toe wound and ischemic changes in the foot INVESTIGATIONS, reviewed in the clinical context: May 21: WBC 6.7 hemoglobin 7 platelets 276 potassium 5 BUN [address] abdomen and pelvis without contrast [May 20] right-sided hydronephrosis, hydroureter 8. Bladder calculus in the lower right ureter.. Multiple bilateral renal calculi. Multiple large calcified gallstones May 19: WBC 9.3 hemoglobin 7.1 potassium 4.7 BUN 78 creatinine 2.71 Accu-Cheks 83, 95, 73 WBC 8.4 hemoglobin 6.4 platelets 241 potassium 4.9 BUN 18 creatinine 2.88 UA positive for leukoesterase, WBC, squamous epithelial cells Influenza type A, type B, sour [place] PCR: Non-not detected Chest x-ray film: No infiltrates CT right lower extremity without contrast: Subcutis edema. No evidence of abscess. Previous studies: 2-D echocardiogram: Moderate concentric LVH. EF 45-50%. Moderate to severe tricuspid regurgitation. Severe pulmonary hypertension. Assessment and plan: -Sepsis from infected right lower extremity wound IV fluids. IV meropenem -Acute on chronic right lower extremity wounds from venous stasis ulcers, especially infected right big toe: Slow to respond IV meropenem. Ray amputation on May [address] Scruggs -Acute right hydronephrosis and hydroureter from right ureter stone: New diagnosis [employer] urology -Chronic kidney disease stage III from diabetic nephropathy and nephrosclerosis Follow renal function -Anemia of chronic kidney disease Follow H&H - Morbid obesity BMI 43.8 Weight loss measures. Follow-up with PCP -Diabetes mellitus type 2 , uncontrolled with hypoglycemia Levemir -hold. Follow Accu-Cheks, sliding scale -Coronary artery disease with prior history of bypass Aspirin, Coreg, Plavix -Diabetic peripheral neuropathy -Chronic low back pain from arthritis Tylenol as needed -Chronic medical debility Uses a motorized wheelchair -Secondary severe pulmonary hypertension Follow clinically -Moderate mitral and moderate to severe tricuspid regurgitation Follow clinically -Bilateral renal calculi -Asymptomatic choledocholithiasis IV meropenem. Postsurgical orders as per Dr. Scruggs. Repeat labs in the morning. Urology consulted
[2021-05-21 20:29] LABS: Glucose,Whole Blood 211 mg/dL (75-99)
[2021-05-21] MEDS: GABAPENTIN 300 MG CAP PO SCH (20:44)
[2021-05-22] MEDS: SODIUM CHLORIDE 0.9% 1,000 ML IV SCH ×2 (04:27→17:04)
[2021-05-22 05:33] LABS: Anisocytosis Slight; Basophils % (A) 1 %; Eosinophils # (A) 0.4 k/uL (0-0.7); Eosinophils % (A) 5 %; HCT 24.4 % (34.0-46.0); HGB 7.1 gm/dL (11.4-16.0); Hypochromasia Marked; Lymphocytes # (A) 0.6 k/uL (1.0-4.8); Lymphocytes % (A) 8 %; MCH 24.8 pg (25.0-35.0); MCV 85.5 fL (80.0-100.0); Mean Platelet Volume 8.5; Monocytes # (A) 0.5 k/uL (0-1.0); Monocytes % (A) 7 %; Neutrophils # (A) 5.6 k/uL (1.3-7.7); Neutrophils % (A) 76 %; Platelet Count 278 k/uL (150-450); RBC 2.85 m/uL (3.80-5.40); RDW 16.6 % (11.5-15.5); WBC 7.4 k/uL (3.8-10.6)
[2021-05-22 05:47] LABS: African American GFR (CKD) 29 (>60 ml/min/1.73 sqM); Anion Gap 6 mmol/L; Blood Urea Nitrogen 70 mg/dL (7-17); Calcium 7.1 mg/dL (8.4-10.2); Carbon Dioxide 18 mmol/L (22-30); Chloride 113 mmol/L (98-107); Glucose 152 mg/dL (74-99); Non-African American GFR(CKD) 25 (>60 ml/min/1.73 sqM); Sodium 137 mmol/L (137-145)
[2021-05-22 06:44] LABS: Glucose,Whole Blood 166 mg/dL (75-99)
[2021-05-22] MEDS: carvediloL 3.125 MG TAB PO SCH ×2 (07:17→17:03)
[2021-05-22] MEDS: SODIUM BICARBONATE TAB 650 MG TAB PO SCH ×3 (07:17→22:22)
[2021-05-22] MEDS: MEROPENEM 500 MG in SODIUM CHLORIDE 0.9% 100 ML IVPB SCH ×2 (07:17→22:23)
[2021-05-22] MEDS: INSULIN ASPART (NovoLOG) 100 UNIT/ML VIAL SQ SCH ×4 (07:17→22:22)
--- NOTE | 2021-05-22 10:20 | P.PN ---
Subjective Progress Note Date: 05/22/21 Principal diagnosis: Fever, right lower extremity wounds A shunt is seen and examined sitting up at the bedside. She is status post op day #1 for right great toe amputation. Patient states she has no pain. No acute changes through the night. She has been afebrile. 1 unit of PRBC was ordered yesterday however patient has antibodies and currently blood is not available, but they are working on it. Today's hemoglobin was stable at 7.1. Objective - Vital Signs Vital signs: Vital Signs Temp 98.1 F 05/22/21 07:05 Pulse 78 05/22/21 07:05 Resp 16 05/22/21 07:05 BP 106/57 05/22/21 07:05 Pulse Ox 94 L 05/22/21 07:05 Intake & Output 05/21/21 05/22/21 05/22/21 18:59 06:59 18:59 Intake Total 1300 700 Output Total 20 750 Balance 1280 -750 700 Intake: IV 1200 600 Sodium Chloride 0.9% 1, 600 600 000 ml @ 75 mls/hr IV . [id number] DAVIE Rx#:[id number] Intake, IV Titration 100 100 Amount Meropenem 500 mg In 100 100 Sodium Chloride 0.9% 100 ml @ 33.3 mls/hr IVPB Q12HR DAVIE Rx#:[id number] Output: Urine 750 Estimated Blood Loss 20 Other: Voiding Method External Catheter External Catheter External Catheter - Exam General appearance: The patient is alert, oriented, in no acute distress. Obese. HET: Head is normocephalic and atraumatic. Neck: Supple Extremities: Left lower extremity with AKA stump. Right lower extremity with dressing clean dry and intact. Patient has multiphasic dorsalis pedis and posterior tibialis Doppler signal. Neurological: No focal deficits. Alert and oriented 3. - Labs CBC & Chem 7: 05/22/21 05:21 05/22/21 05:21 Labs: Abnormal Lab Results - Last 24 Hours (Table) 05/21/21 05/21/21 05/21/21 Range/Units 06:24 08:24 11:19 RBC (3.80-5.40) m/uL Hgb (11.4-16.0) gm/dL Hct (34.0-46.0) % MCH (25.0-35.0) pg MCHC (31.0-37.0) g/dL RDW (11.5-15.5) % Lymphocytes # (1.0-4.8) k/uL ESR 72 H (0-20) mm/hr Chloride (98-107) mmol/L Carbon Dioxide (22-30) mmol/L BUN (7-17) mg/dL Creatinine (0.52-1.04) mg/dL Glucose (74-99) mg/dL POC Glucose (mg/dL) 130 H (75-99) mg/dL Calcium (8.4-10.2) mg/dL Crossmatch See Detail 05/21/21 05/21/21 05/21/21 Range/Units 14:30 16:21 20:28 RBC (3.80-5.40) m/uL Hgb (11.4-16.0) gm/dL Hct (34.0-46.0) % MCH (25.0-35.0) pg MCHC (31.0-37.0) g/dL RDW (11.5-15.5) % Lymphocytes # (1.0-4.8) k/uL ESR (0-20) mm/hr Chloride (98-107) mmol/L Carbon Dioxide (22-30) mmol/L BUN (7-17) mg/dL Creatinine (0.52-1.04) mg/dL Glucose (74-99) mg/dL POC Glucose (mg/dL) 134 H 135 H 211 H (75-99) mg/dL Calcium (8.4-10.2) mg/dL Crossmatch 05/22/21 05/22/21 05/22/21 Range/Units 05:21 05:21 06:43 RBC 2.85 L (3.80-5.40) m/uL Hgb 7.1 L (11.4-16.0) gm/dL Hct 24.4 L (34.0-46.0) % MCH 24.8 L (25.0-35.0) pg MCHC 29.0 L (31.0-37.0) g/dL RDW 16.6 H (11.5-15.5) % Lymphocytes # 0.6 L (1.0-4.8) k/uL ESR (0-20) mm/hr Chloride 113 H (98-107) mmol/L Carbon Dioxide 18 L (22-30) mmol/L BUN 70 H (7-17) mg/dL Creatinine 2.06 H (0.52-1.04) mg/dL Glucose 152 H (74-99) mg/dL POC Glucose (mg/dL) 166 H (75-99) mg/dL Calcium 7.1 L (8.4-10.2) mg/dL Crossmatch Microbiology - Last 24 Hours (Table) 05/21/21 06:24 Blood Culture - Preliminary Blood No Growth after 24 hours Assessment and Plan Assessment: 1. Postop day #1 for right great toe amputation 2. Right lower extremity venous stasis ulcers 3. Bacteremia 4. Diabetes mellitus 5. Chronic kidney disease Plan: 1. Continue IV antibiotics per recommendations from infectious disease 2. Wound care consulted, dressing changes per their instruction 3. Diabetes tolerated 4. Wet-to-dry dressing change to amputation site Thank you For this consultation, we will continue to follow. The impression and plan of care has been dictated as directed. Dr. Gallo I performed a history and examination of this patient, discussed the same with the dictator. I agree with the dictator's note ,documented as a scribe. Any additional findings or plans will be noted.
[2021-05-22 11:40] LABS: Glucose,Whole Blood 171 mg/dL (75-99)
--- NOTE | 2021-05-22 11:54 | P.PN ---
Progress Note - Text Progress Note Date: 05/22/21 Chief Complaint: Chills History of presenting complaint: This is a pleasant 60-year-old patient, visiting physicians Dr. Garcia. Chronic stable medical conditions include (above-knee amputation, chronic wound on the right lower extremity being followed by Dr. Scruggs from vascular, at the wound care center by Lauren, and also has home care. Chronic kidney disease stage III, diabetes mellitus type 2, hyperlipidemia, coronary artery disease with bypass, diabetic peripheral neuropathy, lower back pain from arthritis, uses a motorized wheelchair at baseline, severe secondary pulmonary hypertension, mitral and tricuspid regurgitation. She was just discharged from the hospital about 5 days ago following debridement of the right lower extremity. Suggestion was made for amputation of the toe. Patient was seen at the wound care center on this . Patient at home now starts feeling weak diet chills shaky. Decreased appetite. Found to have a fever in the ER, admitted with sepsis. Patient feeling tired and rundown. Per evaluation of ER physician no evidence of compartment syndrome. Patient presented with infected left foot big toe. Septic. Started on IV meropenem. May 19: Sitting up in bed. A bit tired. Getting IV meropenem. Oral intake fair. Discussed with Dr. Scruggs from vascular. Possible amputation and couple of days. Will order arterial Doppler to get an idea about. Blood flow May 20: saw patient this morning. Laying in bed. Tired. IV meropenem. No new issues May 21: Saw the patient this morning. Pending surgery later this afternoon. Breathing stable. Patient had abnormal pain yesterday evening. Computed t omography scan did show right ureter obstruction with stone and hydronephrosis. Urology consulted. Results discussed with the patient. Later in the day patient underwent right great toe ray amputation. May 22: Laying in bed. Comfortable. Pain control. Feeling tired. Hemoglobin 7.1. Hence we'll give unit of blood. Because of antibodies is taking time for the blood to be ready. Breathing stable. Review of systems: Was done for constitutional, cardiovascular, GI, pulmonary. relevant finding as above Active Medications Acetaminophen (Acetaminophen Tab 325 Mg Tab) 650 mg PO Q6HR PRN PRN Reason: Mild Pain or Fever > 100.5 Last Admin: 05/19/21 16:52 Dose: 650 mg Documented by: Al Hydroxide/Mg Hydroxide (Mag Hydrox/Al Hydrox/Simeth 30 Ml Cup) 15 ml PO Q6HR PRN PRN Reason: Indigestion Alprazolam (Alprazolam 0.25 Mg Tab) 0.25 mg PO Q6HR PRN PRN Reason: Anxiety Calcium Carbonate/Glycine (Calcium Carbonate 500 Mg Chewable) 1,000 mg PO Q4HR PRN PRN Reason: Dyspepsia Last Admin: 05/18/21 22:46 Dose: 1,000 mg Documented by: Carvedilol (Carvedilol 3.125 Mg Tab) 3.125 mg PO BID-W/MEALS DAVIE Last Admin: 05/22/21 07:17 Dose: Not Given Documented by: Gabapentin (Gabapentin 300 Mg Cap) 300 mg PO HS [facility] Last Admin: 05/21/21 20:44 Dose: 300 mg Documented by: Sodium Chloride (Saline 0.9%) 1,000 mls @ 75 mls/hr IV .[id number] [facility] Last Admin: 05/22/21 04:27 Dose: Not Given Documented by: Meropenem 500 mg/ Sodium (Chloride) 100 mls @ 33.3 mls/hr IVPB Q12HR DAVIE; Protocol Last Admin: 05/22/21 07:17 Dose: 33.3 mls/hr Documented by: Insulin Aspart (Insulin Aspart (Novolog) 100 Unit/Ml Vial) 0 unit SQ ACHS [facility]; Protocol Last Admin: 05/22/21 07:17 Dose: 2 unit Documented by: Lactulose (Lactulose 20 Gm/30 Ml Cup) 20 gm PO DAILY PRN PRN Reason: Constipation Loperamide HCl (Loperamide 2 Mg Cap) 2 mg PO BID PRN PRN Reason: Diarrhea Last Admin: 05/19/21 19:36 Dose: 2 mg Documented by: Magnesium Hydroxide (Magnesium Hydroxide 2,400 Mg/10 Ml Cup) 2,400 mg PO DAILY PRN PRN Reason: Constipation Melatonin (Melatonin 3 Mg Tablet) 3 mg PO HS PRN PRN Reason: Insomnia Naloxone HCl (Naloxone 0.4 Mg/Ml 1 Ml Vial) 0.2 mg IV Q2M PRN PRN Reason: Opioid Reversal Ondansetron HCl (Ondansetron 4 Mg/2 Ml Vial) 4 mg IVP Q8HR PRN PRN Reason: Nausea And Vomiting Last Admin: 05/21/21 12:48 Dose: 4 mg Documented by: Sodium Bicarbonate (Sodium Bicarbonate Tab 650 Mg Tab) 650 mg PO TID DAVIE Last Admin: 05/22/21 07:17 Dose: 650 mg Documented by: Tramadol/Acetaminophen (Tramadol-Acetaminop 37.5-325mg 1 Each Tab) 1 each PO TID PRN PRN Reason: Pain Last Admin: 05/21/21 19:36 Dose: 1 each Documented by: Past medical history to include: Left above-knee amputation, chronic wound to the right lower extremity, chronic kidney disease stage III, diabetes mellitus, hyperlipidemia, coronary artery disease with bypass, diabetic peripheral neuropathy, lower back pain from arthritis, GERD venous stasis ulcers, peripheral neuropathy, Social history: Lives alone. Motorized wheelchair. Home care. She was drinking heavily of April 1991. Smoking up to 3 packs a day up to 2011. Family history: Diabetes, ND, and resume, stroke Physical examination: VITAL SIGNS: 98.1, 78, 16, 106/57, 94% room air GENERAL: Reclining in bed, awake, comfortable EYES: Pupils equal. Conjunctiva normal. HEENT: External appearance of nose and ears normal, oral cavity grossly normal. NECK: JVD not raised; masses not palpable. HEART: First and second heart sounds are normal; no edema. LUNGS: Respiratory rate increased; decreased breath sounds. ABDOMEN: Soft, nontender, liver spleen not palpable, no masses palpable. PSYCH: Alert and oriented x3; mood and affect normal. NEUROLOGICAL: Cranial nerves grossly intact; no facial asymmetry, power and sensation grossly intact. EXTREMITIES: Left above-knee amputation. Right foot and a dressing INVESTIGATIONS, reviewed in the clinical context: May 22: WBC 7.4 hemoglobin 7.1 potassium 5 BUN 70 creatinine 2.06 May 21: WBC 6.7 hemoglobin 7 platelets 276 potassium 5 BUN [address] abdomen and pelvis without contrast [May 20] right-sided hydronephrosis, hydroureter 8. Bladder calculus in the lower right ureter.. Multiple bilateral renal calculi. Multiple large calcified gallstones May 19: WBC 9.3 hemoglobin 7.1 potassium 4.7 BUN 78 creatinine 2.71 Accu-Cheks 83, 95, 73 WBC 8.4 hemoglobin 6.4 platelets 241 potassium 4.9 BUN 18 creatinine 2.88 UA positive for leukoesterase, WBC, squamous epithelial cells Influenza type A, type B, sour [place] PCR: Non-not detected Chest x-ray film: No infiltrates CT right lower extremity without contrast: Subcutis edema. No evidence of abscess. Previous studies: 2-D echocardiogram: Moderate concentric LVH. EF 45-50%. Moderate to severe tricuspid regurgitation. Severe pulmonary hypertension. Assessment and plan: -Sepsis from infected right lower extremity wound IV fluids. IV meropenem -Acute on chronic right lower extremity wounds from venous stasis ulcers, especially infected right big toe: IV meropenem. Ray amputation on May [address] Scruggs -Acute right hydronephrosis and hydroureter from right ureter stone: Awaiting input from urology -Chronic kidney disease stage III from diabetic nephropathy and nephrosclerosis Follow renal function -Symptomatic Anemia of chronic kidney disease Hemoglobin 7.1. Pending blood transfusion - Morbid obesity BMI 43.8 Weight loss measures. Follow-up with PCP -Diabetes mellitus type 2 , uncontrolled with hypoglycemia Levemir -hold. Follow Accu-Cheks, sliding scale -Coronary artery disease with prior history of bypass Aspirin, Coreg, Plavix -Diabetic peripheral neuropathy -Chronic low back pain from arthritis Tylenol as needed -Chronic medical debility Uses a motorized wheelchair -Secondary severe pulmonary hypertension Follow clinically -Moderate mitral and moderate to severe tricuspid regurgitation Follow clinically -Bilateral renal calculi -Asymptomatic choledocholithiasis IV meropenem. Pending input from urology. Pending blood transfusion. Other medications to continue. Discussed with the patient.
--- NOTE | 2021-05-22 12:03 | P.GSCN ---
History of Present Illness Consult date: 05/22/21 Reason for Consult: Right ureteral calculus Requesting physician: Bobby Quinones History of present illness: The patient is a 60-year-old white female with peripheral vascular disease. Other medical conditions include stage III chronic kidney disease, type 2 diabetes mellitus, hyperlipidemia, coronary artery disease with bypass, diabetic peripheral neuropathy, secondary pulmonary hypertension, and mitral and tricuspi d regurgitation. She was recently discharged from the hospital following debridement of the right lower extremity. She was advised to undergo toe amputation but elected not to proceed with this. She began to experience chills and weakness, and was noted to be febrile in the ER. She underwent amputation of the right great toe yesterday. A computed tomography scan has shown evidence of urolithiasis, so I am consulted for this reason. The patient denies any prior history of urolithiasis. She reports chronic back pain but denies flank pain. Review of Systems - Constitutional Reports chills, Reports fever, Reports poor appetite - Genitourinary Genitourinary: Reports urge incontinence, Denies dysuria, Denies flank pain, Denies hematuria Past Medical History Past Medical History: Coronary Artery Disease (CAD), Heart Failure, COPD, Diabetes Mellitus, GERD/Reflux, Hyperlipidemia, Hypertension, Myocardial Infarction (AL), Osteoarthritis (OA), Renal Disease, Rheumatoid Arthritis (RA), Skin Disorder, Vascular Disorder Additional Past Medical History / Comment(s): venous stasis ulcers, hx cellulitis, 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 Last Myocardial Infarction Date:: 2011 History of Any Multi-Drug Resistant Organisms: ESBL, MRSA Year Discovered:: 05/17/21 ESBL / 03/20/19 MRSA MDRO Source:: ESBL URINE/ MRSA BLOOD Past Surgical History: Section Additional Past Surgical History / Comment(s): 2011 CABG 2 vessel, D&C, C- sections x 2, bilateral lower leg/heels debrided., left above the knee amputa tion (Oct 2020). 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 Denies tobacco smoking or alcohol use. Medically disabled. No experience or international tr hamzah. No animals in the home. She has a nebulizer and a glucometer. She has [employer] aide 3 days a week for cleaning/showering. Comes to wound center for leg wounds. Smoking Status: Former smoker Past Alcohol Use History: None Reported Additional Past Alcohol Use History / Comment(s): stopped smoking in 2011. HX OF 3PPD., In the past used to drink heavily but none since 1990 Past Drug Use History: None Reported - Past Family History Mother Additional Family Medical History / Comment(s): anuerysm Father Family Medical History: CVA/TIA, Diabetes Mellitus, Myocardial Infarction (AL) Sister(s) Additional Family Medical History / Comment(s): one sister had "hole in her heart" and a kidney transplant and another sister had ms. Medications and Allergies Home Medications Medication Instructions Recorded Confirmed Type Carvedilol [Coreg] 12.5 mg PO BID 08/17/18 05/17/21 History Clopidogrel [Plavix] 75 mg PO DAILY 08/17/18 05/17/21 History Gabapentin [Neurontin] 300 mg PO HS #3 capsule 10/21/20 05/17/21 Rx INSULIN ASPART (NovoLOG) [NovoLOG See Protocol SQ AC-TID PRN 05/07/21 05/17/21 History (formulary)] Loperamide [Imodium] 2 mg PO BID PRN 05/07/21 05/17/21 History Pantoprazole Sodium 40 mg PO DAILY 05/07/21 05/17/21 History Insulin Detemir (Levemir) [Levemir] 20 unit SQ DAILY PRN 05/17/21 05/17/21 His tory hydrOXYzine HCL [Atarax] 25 mg PO TID PRN 05/17/21 05/17/21 History traMADol-ACETAMINOP 37.5-325MG 1 tab PO TID PRN 05/17/21 05/17/21 History [Ultracet] Allergies Allergy/AdvReac Type Severity Reaction Status Date / Time vitamin E (d-alpha Allergy Unknown Rash/Hives Verified 05/17/21 17:29 tocopherol) collagenase Clostridium Allergy Rash/Hives Verified 05/17/21 17:29 histolyticu [From Santyl] latex Allergy Rash/Hives Verified 05/17/21 17:29 pollen extracts AdvReac Mild Itching Verified 05/17/21 17:29 dial soap Allergy Unknown Rash/Hives Uncoded 05/07/21 12:30 Surgical - Exam Vital Signs Temp Pulse Resp BP Pulse Ox 103 F H 87 20 125/62 99 05/17/21 14:50 05/17/21 14:50 05/17/21 14:50 05/17/21 14:50 05/17/21 14:50 - General well developed, well nourished, no distress - Neck no masses, trachea midline - Respiratory normal respiratory effort - Abdomen Abdomen: soft, non tender, no guarding, no rigid, no rebound - Psychiatric oriented to time, oriented to person, oriented to place, speech is normal, memor y intact Results - Labs 05/22/21 05:21 05/22/21 05:21 Abnormal Lab Results - Last 24 Hours (Table) 05/21/21 05/21/21 05/21/21 Range/Units 06:24 06:24 06:49 RBC 2.83 L (3.80-5.40) m/uL Hgb 7.0 L (11.4-16.0) gm/dL Hct 23.9 L (34.0-46.0) % MCH 24.7 L (25.0-35.0) pg MCHC 29.1 L (31.0-37.0) g/dL RDW 16.4 H (11.5-15.5) % Lymphocytes # 0.4 L (1.0-4.8) k/uL ESR 72 H (0-20) mm/hr Sodium 136 L (137-145) mmol/L Chloride 111 H (98-107) mmol/L Carbon Dioxide 18 L (22-30) mmol/L BUN 74 H (7-17) mg/dL Creatinine 2.37 H (0.52-1.04) mg/dL Glucose 115 H (74-99) mg/dL POC Glucose (mg/dL) 123 H (75-99) mg/dL Calcium 7.4 L (8.4-10.2) mg/dL C-Reactive Protein 6.6 H (<1.0) mg/dL Crossmatch 05/21/21 05/21/21 05/21/21 Range/Units 08:24 11:19 14:30 RBC (3.80-5.40) m/uL Hgb (11.4-16.0) gm/dL Hct (34.0-46.0) % MCH (25.0-35.0) pg MCHC (31.0-37.0) g/dL RDW (11.5-15.5) % Lymphocytes # (1.0-4.8) k/uL ESR (0-20) mm/hr Sodium (137-145) mmol/L Chloride (98-107) mmol/L Carbon Dioxide (22-30) mmol/L BUN (7-17) mg/dL Creatinine (0.52-1.04) mg/dL Glucose (74-99) mg/dL POC Glucose (mg/dL) 130 H 134 H (75-99) mg/dL Calcium (8.4-10.2) mg/dL C-Reactive Protein (<1.0) mg/dL Crossmatch See Detail 05/21/21 05/21/21 05/22/21 Range/Units 16:21 20:28 05:21 RBC 2.85 L (3.80-5.40) m/uL Hgb 7.1 L (11.4-16.0) gm/dL Hct 24.4 L (34.0-46.0) % MCH 24.8 L (25.0-35.0) pg MCHC 29.0 L (31.0-37.0) g/dL RDW 16.6 H (11.5-15.5) % Lymphocytes # 0.6 L (1.0-4.8) k/uL ESR (0-20) mm/hr Sodium (137-145) mmol/L Chloride (98-107) mmol/L Carbon Dioxide (22-30) mmol/L BUN (7-17) mg/dL Creatinine (0.52-1.04) mg/dL Glucose (74-99) mg/dL POC Glucose (mg/dL) 135 H 211 H (75-99) mg/dL Calcium (8.4-10.2) mg/dL C-Reactive Protein (<1.0) mg/dL Crossmatch 05/22/21 Range/Units 05:21 RBC (3.80-5.40) m/uL Hgb (11.4-16.0) gm/dL Hct (34.0-46.0) % MCH (25.0-35.0) pg MCHC (31.0-37.0) g/dL RDW (11.5-15.5) % Lymphocytes # (1.0-4.8) k/uL ESR (0-20) mm/hr Sodium (137-145) mmol/L Chloride 113 H (98-107) mmol/L Carbon Dioxide 18 L (22-30) mmol/L BUN 70 H (7-17) mg/dL Creatinine 2.06 H (0.52-1.04) mg/dL Glucose 152 H (74-99) mg/dL POC Glucose (mg/dL) (75-99) mg/dL Calcium 7.1 L (8.4-10.2) mg/dL C-Reactive Protein (<1.0) mg/dL Crossmatch Diabetes panel 05/21/21 05/22/21 Range/Units 06:24 05:21 Sodium 136 L 137 (137-145) mmol/L Potassium 5.0 5.0 (3.5-5.1) mmol/L Chloride 111 H 113 H (98-107) mmol/L Carbon Dioxide 18 L 18 L (22-30) mmol/L BUN 74 H 70 H (7-17) mg/dL Creatinine 2.37 H 2.06 H (0.52-1.04) mg/dL Glucose 115 H 152 H (74-99) mg/dL Calcium 7.4 L 7.1 L (8.4-10.2) mg/dL Calcium panel 05/21/21 05/22/21 Range/Units 06:24 05:21 Calcium 7.4 L 7.1 L (8.4-10.2) mg/dL Pituitary panel 05/21/21 05/22/21 Range/Units 06:24 05:21 Sodium 136 L 137 (137-145) mmol/L Potassium 5.0 5.0 (3.5-5.1) mmol/L Chloride 111 H 113 H (98-107) mmol/L Carbon Dioxide 18 L 18 L (22-30) mmol/L BUN 74 H 70 H (7-17) mg/dL Creatinine 2.37 H 2.06 H (0.52-1.04) mg/dL Glucose 115 H 152 H (74-99) mg/dL Calcium 7.4 L 7.1 L (8.4-10.2) mg/dL Adrenal panel 05/21/21 05/22/21 Range/Units 06:24 05:21 Sodium 136 L 137 (137-145) mmol/L Potassium 5.0 5.0 (3.5-5.1) mmol/L Chloride 111 H 113 H (98-107) mmol/L Carbon Dioxide 18 L 18 L (22-30) mmol/L BUN 74 H 70 H (7-17) mg/dL Creatinine 2.37 H 2.06 H (0.52-1.04) mg/dL Glucose 115 H 152 H (74-99) mg/dL Calcium 7.4 L 7.1 L (8.4-10.2) mg/dL - Imaging CT scan - abdomen: report reviewed, image reviewed Assessment and Plan (1) Calculus of ureter Current Visit: Yes Status: Acute Code(s): N20.1 - CALCULUS OF URETER SNOMED Code(s): 17605531 Plan: Computed tomography scan shows bilateral renal calculi, greater on the right side, measuring up to 1 cm in size. Additionally, there appears to be right hydronephrosis due to an 8 mm right distal ureteral calculus. As stated, she is asymptomatic. Her urine culture is negative. Treatment options include medical expulsion therapy, extracorporal shockwave lithotripsy (ESWL), and ureteroscopy with laser lithotripsy. A KUB x-ray will be obtained to determine whether or not the calculi are radio opaque. I do not feel that urgent treatment is warranted given her lack of symptoms and other medical issues. Time with Patient: Greater than 30
--- NOTE | 2021-05-22 12:19 | P.PN ---
<ChristineCatrachita cortes - Last Filed: 05/22/21 12:15> Subjective Progress Note Date: 05/22/21 CHIEF COMPLAINT: Fever HISTORY OF PRESENT ILLNESS: Patient denies any abdominal pain. She denies any nausea or vomiting. She is tolerating diet. She is status post right great toe amputation by Dr. Scruggs. She has been seen by urology regarding right ureteral stone. Afebrile. WBC 7.4 PHYSICAL EXAM: VITAL SIGNS: Reviewed. GENERAL: Well-developed in no acute distress. HEENT: No sclera icterus. Extraocular movements grossly intact. Moist buccal mucosa. Head is atraumatic, normocephalic. ABDOMEN: Soft. Nondistended. Nontender. NEUROLOGIC: Alert and oriented. Cranial nerves II through XII grossly intact. ASSESSMENT: 1. Asymptomatic Cholelithiasis PLAN: -No surgical intervention planned -Continue supportive care Physician Package Dyer note has been reviewed by physician. Signing provider agrees with the documented findings, assessment, and plan of care. Objective - Vital Signs Vital signs: Vital Signs Temp 98.1 F 05/22/21 07:05 Pulse 78 05/22/21 07:05 Resp 16 05/22/21 07:05 BP 106/57 05/22/21 07:05 Pulse Ox 94 L 05/22/21 07:05 Intake & Output 05/21/21 05/22/21 05/22/21 18:59 06:59 18:59 Intake Total 1300 700 Output Total 20 750 Balance 1280 -750 700 Intake: IV 1200 600 Sodium Chloride 0.9% 1, 600 600 000 ml @ 75 mls/hr IV . [id number] [facility] Rx#:[id number] Intake, IV Titration 100 100 Amount Meropenem 500 mg In 100 100 Sodium Chloride 0.9% 100 ml @ 33.3 mls/hr IVPB Q12HR [facility] Rx#:[id number] Output: Urine 750 Estimated Blood Loss 20 Other: Voiding Method External Catheter External Catheter External Catheter - Labs CBC & Chem 7: 05/22/21 05:21 05/22/21 05:21 Labs: Abnormal Lab Results - Last 24 Hours (Table) 05/21/21 05/21/21 05/21/21 Range/Units 06:24 08:24 14:30 RBC (3.80-5.40) m/uL Hgb (11.4-16.0) gm/dL Hct (34.0-46.0) % MCH (25.0-35.0) pg MCHC (31.0-37.0) g/dL RDW (11.5-15.5) % Lymphocytes # (1.0-4.8) k/uL ESR 72 H (0-20) mm/hr Chloride (98-107) mmol/L Carbon Dioxide (22-30) mmol/L BUN (7-17) mg/dL Creatinine (0.52-1.04) mg/dL Glucose (74-99) mg/dL POC Glucose (mg/dL) 134 H (75-99) mg/dL Calcium (8.4-10.2) mg/dL Crossmatch See Detail 05/21/21 05/21/21 05/21/21 Range/Units 15:21 16:21 20:28 RBC (3.80-5.40) m/uL Hgb (11.4-16.0) gm/dL Hct (34.0-46.0) % MCH (25.0-35.0) pg MCHC (31.0-37.0) g/dL RDW (11.5-15.5) % Lymphocytes # (1.0-4.8) k/uL ESR (0-20) mm/hr Chloride (98-107) mmol/L Carbon Dioxide (22-30) mmol/L BUN (7-17) mg/dL Creatinine (0.52-1.04) mg/dL Glucose (74-99) mg/dL POC Glucose (mg/dL) 135 H 211 H (75-99) mg/dL Calcium (8.4-10.2) mg/dL Crossmatch See Detail 05/22/21 05/22/21 05/22/21 Range/Units 05:21 05:21 06:43 RBC 2.85 L (3.80-5.40) m/uL Hgb 7.1 L (11.4-16.0) gm/dL Hct 24.4 L (34.0-46.0) % MCH 24.8 L (25.0-35.0) pg MCHC 29.0 L (31.0-37.0) g/dL RDW 16.6 H (11.5-15.5) % Lymphocytes # 0.6 L (1.0-4.8) k/uL ESR (0-20) mm/hr Chloride 113 H (98-107) mmol/L Carbon Dioxide 18 L (22-30) mmol/L BUN 70 H (7-17) mg/dL Creatinine 2.06 H (0.52-1.04) mg/dL Glucose 152 H (74-99) mg/dL POC Glucose (mg/dL) 166 H (75-99) mg/dL Calcium 7.1 L (8.4-10.2) mg/dL Crossmatch 05/22/21 Range/Units 11:39 RBC (3.80-5.40) m/uL Hgb (11.4-16.0) gm/dL Hct (34.0-46.0) % MCH (25.0-35.0) pg MCHC (31.0-37.0) g/dL RDW (11.5-15.5) % Lymphocytes # (1.0-4.8) k/uL ESR (0-20) mm/hr Chloride (98-107) mmol/L Carbon Dioxide (22-30) mmol/L BUN (7-17) mg/dL Creatinine (0.52-1.04) mg/dL Glucose (74-99) mg/dL POC Glucose (mg/dL) 171 H (75-99) mg/dL Calcium (8.4-10.2) mg/dL Crossmatch Microbiology - Last 24 Hours (Table) 05/21/21 06:24 Blood Culture - Preliminary Blood No Growth after 24 hours <Alphonse Ibarra - Last Filed: 05/22/21 16:08> Subjective As above. Patient doing well today. Continues to have no abdominal discomforts. Tolerating diet. We'll sign off at this time. Please call if needed Objective - Vital Signs Vital signs: Vital Signs Temp 97.5 F L 05/22/21 14:54 Pulse 83 05/22/21 14:54 Resp 16 05/22/21 14:54 BP 124/74 05/22/21 14:54 Pulse Ox 97 05/22/21 14:24 Intake & Output 05/21/21 05/22/21 05/22/21 18:59 06:59 18:59 Intake Total 1300 700 Output Total 20 750 Balance 1280 -750 700 Intake: IV 1200 600 Sodium Chloride 0.9% 1, 600 600 000 ml @ 75 mls/hr IV . [id number] [facility] Rx#:[id number] Intake, IV Titration 100 100 Amount Meropenem 500 mg In 100 100 Sodium Chloride 0.9% 100 ml @ 33.3 mls/hr IVPB Q12HR [facility] Rx#:[id number] Blood Product 0 Rc Pheresis 2 As3 Unit 0 [id number] Output: Urine 750 Estimated Blood Loss 20 Other: Voiding Method External Catheter External Catheter External Catheter - Labs CBC & Chem 7: 05/22/21 05:21 05/22/21 05:21 Labs: Abnormal Lab Results - Last 24 Hours (Table) 05/21/21 05/21/21 05/21/21 Range/Units 08:24 15:21 16:21 RBC (3.80-5.40) m/uL Hgb (11.4-16.0) gm/dL Hct (34.0-46.0) % MCH (25.0-35.0) pg MCHC (31.0-37.0) g/dL RDW (11.5-15.5) % Lymphocytes # (1.0-4.8) k/uL Chloride (98-107) mmol/L Carbon Dioxide (22-30) mmol/L BUN (7-17) mg/dL Creatinine (0.52-1.04) mg/dL Glucose (74-99) mg/dL POC Glucose (mg/dL) 135 H (75-99) mg/dL Calcium (8.4-10.2) mg/dL Crossmatch See Detail See Detail 05/21/21 05/22/21 05/22/21 Range/Units 20:28 05:21 05:21 RBC 2.85 L (3.80-5.40) m/uL Hgb 7.1 L (11.4-16.0) gm/dL Hct 24.4 L (34.0-46.0) % MCH 24.8 L (25.0-35.0) pg MCHC 29.0 L (31.0-37.0) g/dL RDW 16.6 H (11.5-15.5) % Lymphocytes # 0.6 L (1.0-4.8) k/uL Chloride 113 H (98-107) mmol/L Carbon Dioxide 18 L (22-30) mmol/L BUN 70 H (7-17) mg/dL Creatinine 2.06 H (0.52-1.04) mg/dL Glucose 152 H (74-99) mg/dL POC Glucose (mg/dL) 211 H (75-99) mg/dL Calcium 7.1 L (8.4-10.2) mg/dL Crossmatch 05/22/21 05/22/21 Range/Units 06:43 11:39 RBC (3.80-5.40) m/uL Hgb (11.4-16.0) gm/dL Hct (34.0-46.0) % MCH (25.0-35.0) pg MCHC (31.0-37.0) g/dL RDW (11.5-15.5) % Lymphocytes # (1.0-4.8) k/uL Chloride (98-107) mmol/L Carbon Dioxide (22-30) mmol/L BUN (7-17) mg/dL Creatinine (0.52-1.04) mg/dL Glucose (74-99) mg/dL POC Glucose (mg/dL) 166 H 171 H (75-99) mg/dL Calcium (8.4-10.2) mg/dL Crossmatch Microbiology - Last 24 Hours (Table) 05/21/21 06:24 Blood Culture - Preliminary Blood No Growth after 24 hours
[2021-05-22 16:39] LABS: Glucose,Whole Blood 186 mg/dL (75-99)
[2021-05-22 20:45] LABS: Glucose,Whole Blood 164 mg/dL (75-99)
--- NOTE | 2021-05-22 21:25 | PN ---
PROGRESS NOTE DATE OF SERVICE: 05/22/2021 REASON FOR FOLLOWUP: ESBL E coli bacteremia, infected leg ulcer. INTERVAL HISTORY: The patient is afebrile. The patient is breathing comfortably. Denies having any chest pain, shortness of breath or cough. No abdominal pain or diarrhea. PHYSICAL EXAMINATION: Blood pressure is 129/76, pulse of 79, temperature 98.3. She is 97% on room air. General description is a middle-aged female lying in bed in no distress. Respiratory system: Unlabored breathing, clear to auscultation anteriorly. Heart S1, S2. Regular rate and rhythm. Abdomen soft, no tenderness. Right leg is currently dressed up. No obvious drainage on the dressing. LABS: Hemoglobin 7.1, white count 7.4, BUN of 17, creatinine is 2.06. DIAGNOSTIC IMPRESSION AND PLAN: Patient with ESBL E coli urinary tract infection with right lower extremity ulceration in this patient who is status post amputation of the right big toe. Patient is covered with meropenem, transition to Invanz on discharge to finish course of therapy. Continue supportive care. MMODL / IJN: [id number] /
--- NOTE | 2021-05-22 21:31 | XR ---
EXAM: Abdomen radiograph. HISTORY: Pain. Renal calculi. TECHNIQUE: Supine AP view. COMPARISON: CT 05/20/2021. FINDINGS: There are nondilated bowel loops with a nonobstructive pattern. Moderate amount of stool throughout t he colon. There are no pathologic calcifications. No acute osseous abnormality seen. IMPRESSION: No acute process. Moderate stool burden.
[2021-05-22] MEDS: GABAPENTIN 300 MG CAP PO SCH (22:22)
[2021-05-22] MEDS: LOPERAMIDE 2 MG CAP PO PRN (22:22)
[2021-05-22] MEDS: traMADol-ACETAMINOP 37.5-325MG 1 EACH TAB PO PRN (22:31)
[2021-05-23] MEDS: ACETAMINOPHEN TAB 325 MG TAB PO PRN (01:01)
[2021-05-23 05:27] LABS: Anisocytosis Slight; Basophils % (A) 0 %; Eosinophils # (A) 0.4 k/uL (0-0.7); Eosinophils % (A) 4 %; HCT 23.8 % (34.0-46.0); HGB 7.3 gm/dL (11.4-16.0); Hypochromasia Marked; Lymphocytes # (A) 0.7 k/uL (1.0-4.8); Lymphocytes % (A) 8 %; MCH 25.7 pg (25.0-35.0); MCHC 30.7 g/dL (31.0-37.0); MCV 83.7 fL (80.0-100.0); Monocytes # (A) 0.5 k/uL (0-1.0); Monocytes % (A) 6 %; Neutrophils # (A) 6.5 k/uL (1.3-7.7); Neutrophils % (A) 78 %; Platelet Count 325 k/uL (150-450); Poikilocytosis Slight; RBC 2.85 m/uL (3.80-5.40); RDW 16.5 % (11.5-15.5); WBC 8.2 k/uL (3.8-10.6)
[2021-05-23 07:07] LABS: Glucose,Whole Blood 151 mg/dL (75-99)
[2021-05-23] MEDS: SODIUM BICARBONATE TAB 650 MG TAB PO SCH ×3 (07:20→22:10)
[2021-05-23] MEDS: carvediloL 3.125 MG TAB PO SCH ×2 (07:20→16:03)
[2021-05-23] MEDS: MEROPENEM 500 MG in SODIUM CHLORIDE 0.9% 100 ML IVPB SCH ×2 (07:20→22:11)
[2021-05-23] MEDS: INSULIN ASPART (NovoLOG) 100 UNIT/ML VIAL SQ SCH ×4 (07:20→22:10)
[2021-05-23] MEDS: SODIUM CHLORIDE 0.9% 1,000 ML IV SCH ×2 (07:22→16:03)
[2021-05-23 11:31] LABS: Glucose,Whole Blood 151 mg/dL (75-99)
--- NOTE | 2021-05-23 12:42 | P.PN ---
Subjective Progress Note Date: 05/23/21 Principal diagnosis: Fever, right lower extremity wounds A shunt is seen and examined lying in bed. He is postop day #2 for right great toe amputation. States she did have some phantom pain in that right great toe amputation site last night but pain is well controlled today. Denies any fevers or chills. No other complaints or acute changes through the night. Objective - Vital Signs Vital signs: Vital Signs Temp 98.3 F 05/23/21 08:00 Pulse 82 05/23/21 08:00 Resp 16 05/23/21 08:00 BP 117/66 05/23/21 08:00 Pulse Ox 94 L 05/23/21 08:00 Intake & Output 05/22/21 05/23/21 05/23/21 18:59 06:59 18:59 Intake Total 968 Output Total 350 700 Balance 618 -700 Intake: IV 600 Sodium Chloride 0.9% 1, 600 000 ml @ 75 mls/hr IV . [id number] [facility] Rx#:[id number] Intake, IV Titration 100 Amount Meropenem 500 mg In 100 Sodium Chloride 0.9% 100 ml @ 33.3 mls/hr IVPB Q12HR [facility] Rx#:[id number] Blood Product 268 Rc Pheresis 2 As3 Unit 268 [id number] Output: Urine 350 700 Other: Voiding Method External Catheter External Catheter - Exam General appearance: The patient is alert, oriented, in no acute distress. Obese. HET: Head is normocephalic and atraumatic. Neck: Supple Extremities: Left lower extremity with AKA stump. Right lower extremity with bloody drainage noted from the posterior aspect of the right lower extremity. Dressing changed, amputation site well approximated without any bleeding or drainage. Surrounding tissue pain. Patient has multiple small ulcerations along the right lower extremity, posterior aspect bleeding. Right heel with ulcer. Neurological: No focal deficits. Alert and oriented 3. - Labs CBC & Chem 7: 05/23/21 04:59 05/22/21 05:21 Labs: Abnormal Lab Results - Last 24 Hours (Table) 05/21/21 05/22/21 05/22/21 Range/Units 15:21 11:39 16:38 RBC (3.80-5.40) m/uL Hgb (11.4-16.0) gm/dL Hct (34.0-46.0) % MCHC (31.0-37.0) g/dL RDW (11.5-15.5) % Lymphocytes # (1.0-4.8) k/uL POC Glucose (mg/dL) 171 H 186 H (75-99) mg/dL Crossmatch See Detail 05/22/21 05/23/21 05/23/21 Range/Units 20:44 04:59 07:00 RBC 2.85 L (3.80-5.40) m/uL Hgb 7.3 L (11.4-16.0) gm/dL Hct 23.8 L (34.0-46.0) % MCHC 30.7 L (31.0-37.0) g/dL RDW 16.5 H (11.5-15.5) % Lymphocytes # 0.7 L (1.0-4.8) k/uL POC Glucose (mg/dL) 164 H 151 H (75-99) mg/dL Crossmatch Microbiology - Last 24 Hours (Table) 05/21/21 06:24 Blood Culture - Preliminary Blood No Growth after 48 hours Assessment and Plan Assessment: 1. Postop day #2 for right great toe amputation 2. Right lower extremity venous stasis ulcers 3. Bacteremia 4. Diabetes mellitus 5. Chronic kidney disease Plan: 1. Continue IV antibiotics per recommendations from infectious disease 2. Wound care on consult. Recommend dressing changes per wound care/infectious disease to right lower extremity. 3. Diet as tolerated 4. Adaptic and Kerlix to right great toe amputation site Thank you For this consultation, we will continue to follow. The impression and plan of care has been dictated as directed. Dr. Stout I performed a history and examination of this patient, discussed the same with the dictator. I agree with the dictator's note ,documented as a scribe. Any additional findings or plans will be noted.
[2021-05-23] MEDS: traMADol-ACETAMINOP 37.5-325MG 1 EACH TAB PO PRN (13:41)
[2021-05-23 16:53] LABS: Glucose,Whole Blood 114 mg/dL (75-99)
--- NOTE | 2021-05-23 19:32 | P.PN ---
Progress Note - Text Progress Note Date: 05/23/21 Chief Complaint: Chills History of presenting complaint: This is a pleasant 60-year-old patient, visiting physicians Dr. Garcia. Chronic stable medical conditions include (above-knee amputation, chronic wound on the right lower extremity being followed by Dr. Scruggs from vascular, at the wound care center by Lauren, and also has home care. Chronic kidney disease stage III, diabetes mellitus type 2, hyperlipidemia, coronary artery disease with bypass, diabetic peripheral neuropathy, lower back pain from arthritis, uses a motorized wheelchair at baseline, severe secondary pulmonary hypertension, mitral and tricuspid regurgitation. She was just discharged from the hospital about 5 days ago following debridement of the right lower extremity. Suggestion was made for amputation of the toe. Patient was seen at the wound care center on this . Patient at home now starts feeling weak diet chills shaky. Decreased appetite. Found to have a fever in the ER, admitted with sepsis. Patient feeling tired and rundown. Per evaluation of ER physician no evidence of compartment syndrome. Patient presented with infected left foot big toe. Septic. Also acute UTI with right ureter stone with hydronephrosis. Dana to be the source for positive blood cultures , E. coli/ESBL. Given IV meropenem. Underwent right big toe ray amputation May 19: Sitting up in bed. A bit tired. Getting IV meropenem. Oral intake fair. Discussed with Dr. Scruggs from vascular. Possible amputation and couple of days. Will order arterial Doppler to get an idea about. Blood flow May 20: saw patient this morning. Laying in bed. Tired. IV meropenem. No new issues May 21: Saw the patient this morning. Pending surgery later this afternoon. Breathing stable. Patient had abnormal pain yesterday evening. Computed tomography scan did show right ureter obstruction with stone and hydronephrosis. Urology consulted. Results discussed with the patient. Later in the day patient underwent right great toe ray amputation. May 22: Laying in bed. Comfortable. Pain control. Feeling tired. Hemoglobin 7.1. Hence we'll give unit of blood. Because of antibodies is taking time for the blood to be ready. Breathing stable. May 23: Pain control. No new issues. Oral intake fair. On IV meropenem. Discussed with Dr. Van. Possible obstructive hydronephrosis felt to be the source of positive blood cultures. Possible stone extraction/stent placement per urology. 1 unit of blood received yesterday Review of systems: Was done for constitutional, cardiovascular, GI, pulmonary. relevant finding as above Active Medications Acetaminophen (Acetaminophen Tab 325 Mg Tab) 650 mg PO Q6HR PRN PRN Reason: Mild Pain or Fever > 100.5 Last Admin: 05/23/21 01:01 Dose: 650 mg Documented by: Al Hydroxide/Mg Hydroxide (Mag Hydrox/Al Hydrox/Simeth 30 Ml Cup) 15 ml PO Q6HR PRN PRN Reason: Indigestion Alprazolam (Alprazolam 0.25 Mg Tab) 0.25 mg PO Q6HR PRN PRN Reason: Anxiety Calcium Carbonate/Glycine (Calcium Carbonate 500 Mg Chewable) 1,000 mg PO Q4HR PRN PRN Reason: Dyspepsia Last Admin: 05/18/21 22:46 Dose: 1,000 mg Documented by: Carvedilol (Carvedilol 3.125 Mg Tab) 3.125 mg PO BID-W/MEALS [facility] Last Admin: 05/23/21 16:03 Dose: 3.125 mg Documented by: Gabapentin (Gabapentin 300 Mg Cap) 300 mg PO HS [facility] Last Admin: 05/22/21 22:22 Dose: 300 mg Documented by: Sodium Chloride (Saline 0.9%) 1,000 mls @ 75 mls/hr IV .[id number] [facility] Last Admin: 05/23/21 16:03 Dose: 75 mls/hr Documented by: Meropenem 500 mg/ Sodium (Chloride) 100 mls @ 33.3 mls/hr IVPB Q12HR [facility]; Protocol Last Admin: 05/23/21 07:20 Dose: 33.3 mls/hr Documented by: Insulin Aspart (Insulin Aspart (Novolog) 100 Unit/Ml Vial) 0 unit SQ ACHS [facility]; Protocol Last Admin: 05/23/21 17:22 Dose: Not Given Documented by: Lactulose (Lactulose 20 Gm/30 Ml Cup) 20 gm PO DAILY PRN PRN Reason: Constipation Loperamide HCl (Loperamide 2 Mg Cap) 2 mg PO BID PRN PRN Reason: Diarrhea Last Admin: 05/22/21 22:22 Dose: 2 mg Documented by: Magnesium Hydroxide (Magnesium Hydroxide 2,400 Mg/10 Ml Cup) 2,400 mg PO DAILY PRN PRN Reason: Constipation Melatonin (Melatonin 3 Mg Tablet) 3 mg PO HS PRN PRN Reason: Insomnia Naloxone HCl (Naloxone 0.4 Mg/Ml 1 Ml Vial) 0.2 mg IV Q2M PRN PRN Reason: Opioid Reversal Ondansetron HCl (Ondansetron 4 Mg/2 Ml Vial) 4 mg IVP Q8HR PRN PRN Reason: Nausea And Vomiting Last Admin: 05/21/21 12:48 Dose: 4 mg Documented by: Sodium Bicarbonate (Sodium Bicarbonate Tab 650 Mg Tab) 650 mg PO TID [facility] Last Admin: 05/23/21 16:03 Dose: 650 mg Documented by: Tramadol/Acetaminophen (Tramadol-Acetaminop 37.5-325mg 1 Each Tab) 1 each PO TID PRN PRN Reason: Pain Last Admin: 05/23/21 13:41 Dose: 1 each Documented by: Past medical history to include: Left above-knee amputation, chronic wound to the right lower extremity, chronic kidney disease stage III, diabetes mellitus, hyperlipidemia, coronary artery disease with bypass, diabetic peripheral neuropathy, lower back pain from arthritis, GERD venous stasis ulcers, peripheral neuropathy, Social history: Lives alone. Motorized wheelchair. Home care. She was drinking heavily of April 1991. Smoking up to 3 packs a day up to 2011. Family history: Diabetes, CT, and resume, stroke Physical examination: VITAL SIGNS: Afebrile, 79, 17, 122/71, 97% room air GENERAL: Reclining in bed, awake, comfortable EYES: Pupils equal. Conjunctiva normal. NECK: JVD not raised; masses not palpable. HEART: First and second heart sounds are normal; no edema. LUNGS: Respiratory rate increased; decreased breath sounds. ABDOMEN: Soft, nontender, liver spleen not palpable, no masses palpable. PSYCH: Alert and oriented x3; mood and affect normal. EXTREMITIES: Left above-knee amputation. Right foot in a dressing INVESTIGATIONS, reviewed in the clinical context: May 23: WBC 8.2 hemoglobin 7.3 platelets 325 May 22: WBC 7.4 hemoglobin 7.1 potassium 5 BUN 70 creatinine 2.06 May 21: WBC 6.7 hemoglobin 7 platelets 276 potassium 5 BUN [address] abdomen and pelvis without contrast [May 20] right-sided hydronephrosis, hydroureter 8. Bladder calculus in the lower right ureter.. Multiple bilateral renal calculi. Multiple large calcified gallstones May 19: WBC 9.3 hemoglobin 7.1 potassium 4.7 BUN 78 creatinine 2.71 Accu-Cheks 83, 95, 73 WBC 8.4 hemoglobin 6.4 platelets 241 potassium 4.9 BUN 18 creatinine 2.88 UA positive for leukoesterase, WBC, squamous epithelial cells Influenza type A, type B, sour [place] PCR: Non-not detected Chest x-ray film: No infiltrates CT right lower extremity without contrast: Subcutis edema. No evidence of abscess. Previous studies: 2-D echocardiogram: Moderate concentric LVH. EF 45-50%. Moderate to severe tricuspid regurgitation. Severe pulmonary hypertension. Assessment and plan: -Sepsis from infected right lower extremity wound, UTI IV fluids. IV meropenem -Acute on chronic right lower extremity wounds from venous stasis ulcers, especi ally infected right big toe: IV meropenem. Ray amputation on May [address] Scruggs -Acute right hydronephrosis and hydroureter from right ureter stone: Causing sepsis. E. coli/ESBL. Pending intervention per urology. -Chronic kidney disease stage III from diabetic nephropathy and nephrosclerosis Follow renal function -Symptomatic Anemia of chronic kidney disease Hemoglobin 7.1. Receive 2 units of blood - Morbid obesity BMI 43.8 Weight loss measures. Follow-up with PCP -Diabetes mellitus type 2 , uncontrolled with hypoglycemia Levemir -hold. Follow Accu-Cheks, sliding scale -Coronary artery disease with prior history of bypass Aspirin, Coreg, Plavix -Diabetic peripheral neuropathy -Chronic low back pain from arthritis Tylenol as needed -Chronic medical debility Uses a motorized wheelchair -Secondary severe pulmonary hypertension Follow clinically -Moderate mitral and moderate to severe tricuspid regurgitation Follow clinically -Bilateral renal calculi -Asymptomatic choledocholithiasis IV meropenem. Discussed with Dr. Van. 4 intervention to the right ureter. Other medications to continue. Total time spent today about 40 minutes with over 25 minutes of discussion. Including with the patient's and Dr. Van.
[2021-05-23 21:10] LABS: Glucose,Whole Blood 210 mg/dL (75-99)
[2021-05-23] MEDS: GABAPENTIN 300 MG CAP PO SCH (22:10)
[2021-05-23] MEDS: LOPERAMIDE 2 MG CAP PO PRN (22:21)
--- NOTE | 2021-05-23 22:29 | PN ---
PROGRESS NOTE DATE OF SERVICE: 05/23/2021 REASON FOR FOLLOWUP: ESBL E coli bacteremia, right leg wound and cellulitis. INTERVAL HISTORY: The patient is afebrile. The patient is breathing comfortably. No chest pain, shortness of breath or cough. No abdominal pain or diarrhea. Denies any worsening pain to the right lower extremity. PHYSICAL EXAMINATION: Blood pressure 122/71 with a pulse of 79, temperature 98.1. She is 97% on room air. GENERAL DESCRIPTION: General description is a middle-aged female lying in bed in no distress. RESPIRATORY SYSTEM: Unlabored breathing. Clear to auscultation anteriorly. HEART: S1, S2. Regular rate and rhythm. ABDOMEN: Soft. Right leg with some superficial ulceration. Redness is improved. No drainage. LABS: Hemoglobin 7.3, white count 8.2. Blood culture repeat has been negative. DIAGNOSTIC IMPRESSION AND PLAN: Patient with ESBL Escherichia coli bacteremia. Repeat blood cultures have been negative so far. The patient did have extensive workup with no evidence of any abdominal or urinary source. Did have right lower extremity wound and concern for cellulitis. Wound on the heel looks deep and bacteremia. Will obtain a bone scan to make sure no evidence of any osteomyelitis in the right leg. Continue the patient on Invanz and monitor clinical course closely. MMODL / IJN: [id number] /
[2021-05-24 07:03] LABS: Glucose,Whole Blood 124 mg/dL (75-99)
[2021-05-24] MEDS: INSULIN ASPART (NovoLOG) 100 UNIT/ML VIAL SQ SCH ×4 (07:22→21:20)
[2021-05-24] MEDS: MEROPENEM 500 MG in SODIUM CHLORIDE 0.9% 100 ML IVPB SCH ×2 (07:29→21:20)
[2021-05-24] MEDS: carvediloL 3.125 MG TAB PO SCH ×2 (07:30→17:14)
[2021-05-24] MEDS: SODIUM BICARBONATE TAB 650 MG TAB PO SCH ×3 (07:30→21:21)
[2021-05-24] MEDS: SODIUM CHLORIDE 0.9% 1,000 ML IV SCH (07:31)
--- NOTE | 2021-05-24 07:50 | P.PN ---
Progress Note - Text Progress Note Date: 05/23/21 The patient is afebrile. She continues to deny right flank pain. Blood cultures show E. coli, and a source has not been identified. The urine culture was negative. There is some concern that the E. coli bacteremia may have been of urinary origin. In view of this, she will undergo insertion of a right ureteral stent on 05/25/2021. The rationale for this has been reviewed in detail, along with potential risks which include anesthesia and ureteral injury. She will then be advised to undergo elective ureteroscopy with stent removal and laser lithotripsy at a later date.
[2021-05-24] MEDS: ACETAMINOPHEN TAB 325 MG TAB PO PRN (09:48)
[2021-05-24 11:35] LABS: Glucose,Whole Blood 189 mg/dL (75-99)
--- NOTE | 2021-05-24 14:30 | P.PN ---
Progress Note - Text Progress Note Date: 05/24/21 Chief Complaint: Chills History of presenting complaint: This is a pleasant 60-year-old patient, visiting physicians Dr. Garcia. Chronic stable medical conditions include (above-knee amputation, chronic wound on the right lower extremity being followed by Dr. Scruggs from vascular, at the wound care center by Lauren, and also has home care. Chronic kidney disease stage III, diabetes mellitus type 2, hyperlipidemia, coronary artery disease with bypass, diabetic peripheral neuropathy, lower back pain from arthritis, uses a motorized wheelchair at baseline, severe secondary pulmonary hypertension, mitral and tricuspid regurgitation. She was just discharged from the hospital about 5 days ago following debridement of the right lower extremity. Suggestion was made for amputation of the toe. Patient was seen at the wound care center on this . Patient at home now starts feeling weak diet chills shaky. Decreased appetite. Found to have a fever in the ER, admitted with sepsis. Patient feeling tired and rundown. Per evaluation of ER physician no evidence of compartment syndrome. Patient presented with infected left foot big toe. Septic. Also acute UTI with right ureter stone with hydronephrosis. [place] to be the source for positive blood cultures , E. coli/ESBL. Given IV meropenem. Underwent right big toe ray amputation May 19: Sitting up in bed. A bit tired. Getting IV meropenem. Oral intake fair. Discussed with Dr. Scruggs from vascular. Possible amputation and couple of days. Will order arterial Doppler to get an idea about. Blood flow May 20: saw patient this morning. Laying in bed. Tired. IV meropenem. No new issues May 21: Saw the patient this morning. Pending surgery later this afternoon. Breathing stable. Patient had abnormal pain yesterday evening. Computed tomography scan did show right ureter obstruction with stone and hydronephrosis. Urology consulted. Results discussed with the patient. Later in the day patient underwent right great toe ray amputation. May 22: Laying in bed. Comfortable. Pain control. Feeling tired. Hemoglobin 7.1. Hence we'll give unit of blood. Because of antibodies is taking time for the blood to be ready. Breathing stable. May 23: Pain control. No new issues. Oral intake fair. On IV meropenem. Discussed with Dr. Van. Possible obstructive hydronephrosis felt to be the source of positive blood cultures. Possible stone extraction/stent placement per urology. 1 unit of blood received yesterday noon May 14: Laying in bed. Comfortable. Pain control. Possible ureteral stent placement by urology tomorrow. Discussed with the patient. On IV antibiotics. Oral intake fair. Review of systems: Was done for constitutional, cardiovascular, GI, pulmonary. relevant finding as above Active Medications Acetaminophen (Acetaminophen Tab 325 Mg Tab) 650 mg PO Q6HR PRN PRN Reason: Mild Pain or Fever > 100.5 Last Admin: 05/24/21 09:48 Dose: 650 mg Documented by: Al Hydroxide/Mg Hydroxide (Mag Hydrox/Al Hydrox/Simeth 30 Ml Cup) 15 ml PO Q6HR PRN PRN Reason: Indigestion Alprazolam (Alprazolam 0.25 Mg Tab) 0.25 mg PO Q6HR PRN PRN Reason: Anxiety Calcium Carbonate/Glycine (Calcium Carbonate 500 Mg Chewable) 1,000 mg PO Q4HR PRN PRN Reason: Dyspepsia Last Admin: 05/18/21 22:46 Dose: 1,000 mg Documented by: Carvedilol (Carvedilol 3.125 Mg Tab) 3.125 mg PO BID-W/MEALS [facility] Last Admin: 05/24/21 07:30 Dose: 3.125 mg Documented by: Gabapentin (Gabapentin 300 Mg Cap) 300 mg PO HS [facility] Last Admin: 05/23/21 22:10 Dose: 300 mg Documented by: Sodium Chloride (Saline 0.9%) 1,000 mls @ 75 mls/hr IV .[id number] [facility] Last Admin: 05/24/21 07:31 Dose: 75 mls/hr Documented by: Meropenem 500 mg/ Sodium (Chloride) 100 mls @ 33.3 mls/hr IVPB Q12HR [facility]; Protocol Last Admin: 05/24/21 07:29 Dose: 33.3 mls/hr Documented by: Insulin Aspart (Insulin Aspart (Novolog) 100 Unit/Ml Vial) 0 unit SQ ACHS [facility]; Protocol Last Admin: 05/24/21 11:55 Dose: 3 unit Documented by: Lactulose (Lactulose 20 Gm/30 Ml Cup) 20 gm PO DAILY PRN PRN Reason: Constipation Loperamide HCl (Loperamide 2 Mg Cap) 2 mg PO BID PRN PRN Reason: Diarrhea Last Admin: 05/23/21 22:21 Dose: 2 mg Documented by: Magnesium Hydroxide (Magnesium Hydroxide 2,400 Mg/10 Ml Cup) 2,400 mg PO DAILY PRN PRN Reason: Constipation Melatonin (Melatonin 3 Mg Tablet) 3 mg PO HS PRN PRN Reason: Insomnia Naloxone HCl (Naloxone 0.4 Mg/Ml 1 Ml Vial) 0.2 mg IV Q2M PRN PRN Reason: Opioid Reversal Ondansetron HCl (Ondansetron 4 Mg/2 Ml Vial) 4 mg IVP Q8HR PRN PRN Reason: Nausea And Vomiting Last Admin: 05/21/21 12:48 Dose: 4 mg Documented by: Sodium Bicarbonate (Sodium Bicarbonate Tab 650 Mg Tab) 650 mg PO TID [facility] Last Admin: 05/24/21 07:30 Dose: 650 mg Documented by: Tramadol/Acetaminophen (Tramadol-Acetaminop 37.5-325mg 1 Each Tab) 1 each PO TID PRN PRN Reason: Pain Last Admin: 05/23/21 13:41 Dose: 1 each Documented by: Past medical history to include: Left above-knee amputation, chronic wound to the right lower extremity, chronic kidney disease stage III, diabetes mellitus, hyperlipidemia, coronary artery disease with bypass, diabetic peripheral neuropathy, lower back pain from arthritis, GERD venous stasis ulcers, peripheral neuropathy, Social history: Lives alone. Motorized wheelchair. Home care. She was drinking heavily of April 1991. Smoking up to 3 packs a day up to 2011. Family history: Diabetes, [place], and resume, stroke Physical examination: VITAL SIGNS: 98.2, 64, 16, 118/60, 96% room air GENERAL: Reclining in bed, awake, comfortable EYES: Pupils equal. Conjunctiva normal. NECK: JVD not raised; masses not palpable. HEART: First and second heart sounds are normal; no edema. LUNGS: Respiratory rate increased; decreased breath sounds. ABDOMEN: Soft, nontender, liver spleen not palpable, no masses palpable. PSYCH: Alert and oriented x3; mood and affect normal. EXTREMITIES: Left above-knee amputation. Right foot in a dressing INVESTIGATIONS, reviewed in the clinical context: May 23: WBC 8.2 hemoglobin 7.3 platelets 325 May 22: WBC 7.4 hemoglobin 7.1 potassium 5 BUN 70 creatinine 2.06 May 21: WBC 6.7 hemoglobin 7 platelets 276 potassium 5 BUN [address] abdomen and pelvis without contrast [May 20] right-sided hydronephrosis, hydroureter 8. Bladder calculus in the lower right ureter.. Multiple bilateral renal calculi. Multiple large calcified gallstones May 19: WBC 9.3 hemoglobin 7.1 potassium 4.7 BUN 78 creatinine 2.71 Accu-Cheks 83, 95, 73 WBC 8.4 hemoglobin 6.4 platelets 241 potassium 4.9 BUN 18 creatinine 2.88 UA positive for leukoesterase, WBC, squamous epithelial cells Influenza type A, type B, sour [place] PCR: Non-not detected Chest x-ray film: No infiltrates CT right lower extremity without contrast: Subcutis edema. No evidence of abscess. Previous studies: 2-D echocardiogram: Moderate concentric LVH. EF 45-50%. Moderate to severe tricuspid regurgitation. Severe pulmonary hypertension. Assessment and plan: -Sepsis from infected right lower extremity wound, UTI IV fluids. IV meropenem -Acute on chronic right lower extremity wounds from venous stasis ulcers, especially infected right big toe: IV meropenem. Ray amputation on May [address] Scruggs -Acute right hydronephrosis and hydroureter from right ureter stone: Causing sepsis. E. coli/ESBL. Pending right ureter stent by Dr. Van tomorrow -Chronic kidney disease stage III from diabetic nephropathy and nephrosclerosis Follow renal function -Symptomatic Anemia of chronic kidney disease Hemoglobin 7.1. Receive 2 units of blood - Morbid obesity BMI 43.8 Weight loss measures. Follow-up with PCP -Diabetes mellitus type 2 , uncontrolled with hypoglycemia Levemir -hold. Follow Accu-Cheks, sliding scale -Coronary artery disease with prior history of bypass Aspirin, Coreg, Plavix -Diabetic peripheral neuropathy -Chronic low back pain from arthritis Tylenol as needed -Chronic medical debility Uses a motorized wheelchair -Secondary severe pulmonary hypertension Follow clinically -Moderate mitral and moderate to severe tricuspid regurgitation Follow clinically -Bilateral renal calculi -Asymptomatic choledocholithiasis IV meropenem. Discussed with patient. Questions answered. For right ureteral stent placement tomorrow. Check labs in the morning. Continue antibiotics.
[2021-05-24 16:30] LABS: Glucose,Whole Blood 180 mg/dL (75-99)
[2021-05-24] MEDS: CALCIUM CARBONATE 500 MG CHEWABLE PO PRN (18:16)
--- NOTE | 2021-05-24 19:04 | PN ---
PROGRESS NOTE DATE OF SERVICE: 05/24/2021 REASON FOR FOLLOWUP: ESBL E coli bacteremia and right lower extremity wound and cellulitis. INTERVAL HISTORY: The patient is afebrile. The patient is breathing comfortably. Patient denies having any chest pain or shortness of breath or cough. No abdominal pain or pain to the lower extremity. PHYSICAL EXAMINATION: On examination, her blood pressure is 115/69, pulse 55, temperature 98.9. She is 96% on room air. GENERAL DESCRIPTION: General description is an elderly female lying in bed in no distress. RESPIRATORY SYSTEM: Unlabored breathing. Clear to auscultation anteriorly. HEART: S1, S2. Regular rate and rhythm. ABDOMEN: Soft. No tenderness. Right leg is currently dressed. No obvious drainage on the dressing. LABS: No new labs have been obtained today. Blood culture repeat has been negative. DIAGNOSTIC IMPRESSION AND PLAN: Patient with ESBL Escherichia coli bacteremia with concern for possible source, as no other source has been found. The patient's repeat blood cultures have been negative. To continue with the meropenem. Course of antibiotic to depend upon the depth of infection. X-rays of the right heel followed by a bone scan suspicious. MMODL / IJN: [id number] /
--- NOTE | 2021-05-24 19:56 | XR ---
EXAMINATION TYPE: XR foot complete RT DATE OF EXAM: 05/24/2021 COMPARISON: NONE HISTORY: Heel wound TECHNIQUE: 3 views FINDINGS: There is amputation deformity of the big toe at the level of the distal shaft of the first metatarsal. There is plantar and Achilles calcaneal spurring. There is some osteopenia. There is soft tissue swelling of the forefoot. I see no bone destruction involving the calcaneus. IMPRESSION: Amputation deformity. Soft tissue swelling. Osteomyelitis of the first metatarsal is poss ible.
[2021-05-24 21:14] LABS: Glucose,Whole Blood 175 mg/dL (75-99)
[2021-05-24] MEDS: GABAPENTIN 300 MG CAP PO SCH (21:20)
[2021-05-25] MEDS: SODIUM CHLORIDE 0.9% 1,000 ML IV SCH ×3 (01:49→17:02)
[2021-05-25 05:51] LABS: Anisocytosis Slight; Basophils % (A) 1 %; Eosinophils # (A) 0.3 k/uL (0-0.7); Eosinophils % (A) 4 %; HCT 25.1 % (34.0-46.0); HGB 7.5 gm/dL (11.4-16.0); Hypochromasia Marked; Lymphocytes # (A) 0.7 k/uL (1.0-4.8); Lymphocytes % (A) 10 %; MCH 25.4 pg (25.0-35.0); MCHC 29.8 g/dL (31.0-37.0); Mean Platelet Volume 7.8; Monocytes # (A) 0.3 k/uL (0-1.0); Monocytes % (A) 5 %; Neutrophils # (A) 5.7 k/uL (1.3-7.7); Neutrophils % (A) 80 %; Platelet Count 294 k/uL (150-450); RBC 2.95 m/uL (3.80-5.40); RDW 16.8 % (11.5-15.5); WBC 7.1 k/uL (3.8-10.6)
[2021-05-25 06:10] LABS: African American GFR (CKD) 47 (>60 ml/min/1.73 sqM); Anion Gap 4 mmol/L; Blood Urea Nitrogen 44 mg/dL (7-17); Calcium 7.9 mg/dL (8.4-10.2); Carbon Dioxide 22 mmol/L (22-30); Chloride 114 mmol/L (98-107); Glucose 120 mg/dL (74-99); Non-African American GFR(CKD) 41 (>60 ml/min/1.73 sqM); Sodium 140 mmol/L (137-145)
[2021-05-25 06:56] LABS: Glucose,Whole Blood 134 mg/dL (75-99)
[2021-05-25] MEDS: carvediloL 3.125 MG TAB PO SCH ×2 (07:20→17:02)
[2021-05-25] MEDS: SODIUM BICARBONATE TAB 650 MG TAB PO SCH ×3 (07:20→20:56)
[2021-05-25] MEDS: MEROPENEM 500 MG in SODIUM CHLORIDE 0.9% 100 ML IVPB SCH ×2 (07:20→20:57)
[2021-05-25] MEDS: INSULIN ASPART (NovoLOG) 100 UNIT/ML VIAL SQ SCH ×4 (07:20→20:56)
[2021-05-25] MEDS ORDERED: PROPOFOL 10 MG/ML 20 ML VIAL IV ONE (08:10)
[2021-05-25] MEDS ORDERED: fentaNYL (PF) 50 MCG/ML 2 ML AMP ONE (08:10)
[2021-05-25] MEDS ORDERED: LACTATED RINGERS 1,000 ML IV ONE (08:10)
[2021-05-25] MEDS ORDERED: PHENYLEPHRINE-0.9% NACL SYG 1,000 MCG/10 ML SYRINGE ONE (08:10)
[2021-05-25] MEDS ORDERED: MIDAZOLAM 2 MG/2 ML VIAL ONE (08:10)
[2021-05-25] MEDS ORDERED: LIDOCAINE 1% INJ 10MG/ML (20 ML MDV) ONE (08:10)
[2021-05-25] MEDS ORDERED: SUCCINYLCHOLINE CHLORIDE 100 MG/5 ML SYR IV ONE (08:10)
[2021-05-25] MEDS ORDERED: IOPAMIDOL-370 50ML BTL MISCELLANE ONE (08:36)
--- NOTE | 2021-05-25 09:07 | P.OP ---
Date of Procedure: 05/25/21 Preoperative Diagnosis: Right ureteral calculus, right renal calculi Postoperative Diagnosis: Right ureteral calculi, right renal calculi, right pyonephrosis Procedure(s) Performed: Cystoscopy, right retrograde pyelogram, right ureteral stent insertion Anesthesia: CHARIA Surgeon: Jayson Rader Estimated Blood Loss (ml): 0 IV fluids (ml): 300 Pathology: none sent Condition: stable Disposition: PACU Indications for Procedure: The patient is a 60-year-old white female admitted with sepsis. This was presumed to be due to osteomyelitis of the right first toe, for which she underwent amputation. A urine culture was negative. Blood cultures have shown E. coli. Computed tomography scan shows right renal calculi, as well as right hydronephrosis due to an 8 mm right distal ureteral calculus. She now comes for stent placement, as there is concern that her sepsis may be of urinary origin. Operative Findings: Right distal ureteral calculi. Purulent urine drained from right renal pelvis. Description of Procedure: The patient was taken to the operating room and placed in the dorsolithotomy position, with legs supported in Heath stirrups. The external genitalia was prepped and draped sterilely. The 30 lens was used to introduce the 22-Spanish Stortz cystoscopic sheath through the urethra and into the bladder under direct vision. The bladder was examined in its entirety. Both ureteral orifices were of normal anatomic location and configuration, and clear urine effluxed from both. No tumors or foreign bodies were seen. A 0.035 inch Glidewire was passed through the cystoscope. The right ureteral orifice was cannulated, and the Glidewire was slowly advanced up to the renal pelvis. A 24 cm, 6-Spanish double- J ureteral stent was placed over the wire. Proper stent positioning was verified fluoroscopically and endoscopically. Thick, purulent urine drained through the stent. With the beak of the cystoscope immediately adjacent to the distal end of the right ureteral stent, urine was collected and sent for culture and sensitivity. The bladder was emptied and the cystoscope removed. The patient tolerated the procedure well was taken to the recovery room in stable condition.
[2021-05-25 09:16] LABS: Glucose,Whole Blood 118 mg/dL (75-99)
[2021-05-25 11:48] LABS: Glucose,Whole Blood 136 mg/dL (75-99)
--- NOTE | 2021-05-25 12:30 | FL ---
EXAMINATION TYPE: FL urography retrograde DATE OF EXAM: 05/25/2021 FLUOROSCOPY Fluoroscopy time of 1 minute 5 seconds was used during right ureteral stent insertion in. 3 image/s document/s the procedure.
[2021-05-25 14:39] VITALS: RESP 18
--- NOTE | 2021-05-25 14:45 | P.PN ---
Progress Note - Text Progress Note Date: 05/25/21 Chief Complaint: Chills History of presenting complaint: This is a pleasant 60-year-old patient, visiting physicians Dr. Garcia. Chronic stable medical conditions include (above-knee amputation, chronic wound on the right lower extremity being followed by Dr. Scruggs from vascular, at the wound care center by Lauren, and also has home care. Chronic kidney disease stage III, diabetes mellitus type 2, hyperlipidemia, coronary artery disease with bypass, diabetic peripheral neuropathy, lower back pain from arthritis, uses a motorized wheelchair at baseline, severe secondary pulmonary hypertension, mitral and tricuspid regurgitation. She was just discharged from the hospital about 5 days ago following debridement of the right lower extremity. Suggestion was made for amputation of the toe. Patient was seen at the wound care center on this . Patient at home now starts feeling weak diet chills shaky. Decreased appetite. Found to have a fever in the ER, admitted with sepsis. Patient feeling tired and rundown. Per evaluation of ER physician no evidence of compartment syndrome. Patient presented with infected left foot big toe. Septic. Also acute UTI with right ureter stone with hydronephrosis. [place] to be the source for positive blood cultures , E. coli/ESBL. Given IV meropenem. Underwent right big toe ray amputation May 19: Sitting up in bed. A bit tired. Getting IV meropenem. Oral intake fair. Discussed with Dr. Scruggs from vascular. Possible amputation and couple of days. Will order arterial Doppler to get an idea about. Blood flow May 20: saw patient this morning. Laying in bed. Tired. IV meropenem. No new issues May 21: Saw the patient this morning. Pending surgery later this afternoon. Breathing stable. Patient had abnormal pain yesterday evening. Computed tomography scan did show right ureter obstruction with stone and hydronephrosis. Urology consulted. Results discussed with the patient. Later in the day patient underwent right great toe ray amputation. May 22: Laying in bed. Comfortable. Pain control. Feeling tired. Hemoglobin 7.1. Hence we'll give unit of blood. Because of antibodies is taking time for the blood to be ready. Breathing stable. May 23: Pain control. No new issues. Oral intake fair. On IV meropenem. Discussed with Dr. Van. Possible obstructive hydronephrosis felt to be the source of positive blood cultures. Possible stone extraction/stent placement per urology. 1 unit of blood received yesterday noon May 24: Laying in bed. Comfortable. Pain control. Possible ureteral stent placement by urology tomorrow. Discussed with the patient. On IV antibiotics. Oral intake fair. May 25: Today Ureter stent placed by Dr. Van. Thick purulent urine was obtained through the stent. Patient remains on IV meropenem. Good oral intake. IV fluids. Review of systems: Was done for constitutional, cardiovascular, GI, pulmonary. relevant finding as above Active Medications Acetaminophen (Acetaminophen Tab 325 Mg Tab) 650 mg PO Q6HR PRN PRN Reason: Mild Pain or Fever > 100.5 Last Admin: 05/24/21 09:48 Dose: 650 mg Documented by: Al Hydroxide/Mg Hydroxide (Mag Hydrox/Al Hydrox/Simeth 30 Ml Cup) 15 ml PO Q6HR PRN PRN Reason: Indigestion Alprazolam (Alprazolam 0.25 Mg Tab) 0.25 mg PO Q6HR PRN PRN Reason: Anxiety Calcium Carbonate/Glycine (Calcium Carbonate 500 Mg Chewable) 1,000 mg PO Q4HR PRN PRN Reason: Dyspepsia Last Admin: 05/24/21 18:16 Dose: 1,000 mg Documented by: Carvedilol (Carvedilol 3.125 Mg Tab) 3.125 mg PO BID-W/MEALS [facility] Last Admin: 05/25/21 07:20 Dose: 3.125 mg Documented by: Gabapentin (Gabapentin 300 Mg Cap) 300 mg PO [facility] Last Admin: 05/24/21 21:20 Dose: 300 mg Documented by: Meropenem 500 mg/ Sodium (Chloride) 100 mls @ 33.3 mls/hr IVPB Q12HR [facility]; Protocol Last Admin: 05/25/21 07:20 Dose: 33.3 mls/hr Documented by: Sodium Chloride (Saline 0.9%) 1,000 mls @ 100 mls/hr IV .Q10H [facility] Insulin Aspart (Insulin Aspart (Novolog) 100 Unit/Ml Vial) 0 unit SQ ACHS [facility]; Protocol Last Admin: 05/25/21 12:02 Dose: 1 unit Documented by: Lactulose (Lactulose 20 Gm/30 Ml Cup) 20 gm PO DAILY PRN PRN Reason: Constipation Loperamide HCl (Loperamide 2 Mg Cap) 2 mg PO BID PRN PRN Reason: Diarrhea Last Admin: 05/23/21 22:21 Dose: 2 mg Documented by: Magnesium Hydroxide (Magnesium Hydroxide 2,400 Mg/10 Ml Cup) 2,400 mg PO DAILY PRN PRN Reason: Constipation Melatonin (Melatonin 3 Mg Tablet) 3 mg PO HS PRN PRN Reason: Insomnia Naloxone HCl (Naloxone 0.4 Mg/Ml 1 Ml Vial) 0.2 mg IV Q2M PRN PRN Reason: Opioid Reversal Ondansetron HCl (Ondansetron 4 Mg/2 Ml Vial) 4 mg IVP Q8HR PRN PRN Reason: Nausea And Vomiting Last Admin: 05/21/21 12:48 Dose: 4 mg Documented by: Sodium Bicarbonate (Sodium Bicarbonate Tab 650 Mg Tab) 650 mg PO TID [facility] Last Admin: 05/25/21 07:20 Dose: 650 mg Documented by: Tramadol/Acetaminophen (Tramadol-Acetaminop 37.5-325mg 1 Each Tab) 1 each PO TID PRN PRN Reason: Pain Last Admin: 05/23/21 13:41 Dose: 1 each Documented by: Past medical history to include: Left above-knee amputation, chronic wound to the right lower extremity, chronic kidney disease stage III, diabetes mellitus, hyperlipidemia, coronary artery disease with bypass, diabetic peripheral neuropathy, lower back pain from arthritis, GERD venous stasis ulcers, peripheral neuropathy, Social history: Lives alone. Motorized wheelchair. Home care. She was drinking heavily of April 1991. Smoking up to 3 packs a day up to 2011. Family history: Diabetes, [place], and resume, stroke Physical examination: VITAL SIGNS: 99.1, 76, 16, 131/62, 98% on 2 L GENERAL: Reclining in bed, awake, comfortable EYES: Pupils equal. Conjunctiva normal. NECK: JVD not raised; masses not palpable. HEART: First and second heart sounds are normal; no edema. LUNGS: Respiratory rate increased; decreased breath sounds. ABDOMEN: Soft, nontender, liver spleen not palpable, no masses palpable. PSYCH: Alert and oriented x3; mood and affect normal. EXTREMITIES: Left above-knee amputation. Right foot in a dressing INVESTIGATIONS, reviewed in the clinical context: May 25: WBC 7.1 hemoglobin 7.5 potassium 5. 44 creatinine 1.39 May 23: WBC 8.2 hemoglobin 7.3 platelets 325 May 22: WBC 7.4 hemoglobin 7.1 potassium 5 BUN 70 creatinine 2.06 May 21: WBC 6.7 hemoglobin 7 platelets 276 potassium 5 BUN [address] abdomen and pelvis without contrast [May 20] right-sided hydronephrosis, hydroureter 8. Bladder calculus in the lower right ureter.. Multiple bilateral renal calculi. Multiple large calcified gallstones May 19: WBC 9.3 hemoglobin 7.1 potassium 4.7 BUN 78 creatinine 2.71 Accu-Cheks 83, 95, 73 WBC 8.4 hemoglobin 6.4 platelets 241 potassium 4.9 BUN 18 creatinine 2.88 UA positive for leukoesterase, WBC, squamous epithelial cells Influenza type A, type B, sour [place] PCR: Non-not detected Chest x-ray film: No infiltrates CT right lower extremity without contrast: Subcutis edema. No evidence of abscess. Previous studies: 2-D echocardiogram: Moderate concentric LVH. EF 45-50%. Moderate to severe tricuspid regurgitation. Severe pulmonary hypertension. Assessment and plan: -Sepsis from infected right lower extremity wound, UTI IV fluids. IV meropenem -Acute on chronic right lower extremity wounds from venous stasis ulcers, especially infected right big toe: IV meropenem. Ray amputation on May [address] Scruggs -Acute right hydronephrosis and hydroureter from right ureter stone: Causing sepsis. E. coli/ESBL. right ureter stent by Dr. Van -May 25 -Chronic kidney disease stage III from diabetic nephropathy and nephrosclerosis Follow renal function -Symptomatic Anemia of chronic kidney disease Hemoglobin 7.1. Receive 2 units of blood - Morbid obesity BMI 43.8 Weight loss measures. Follow-up with PCP -Diabetes mellitus type 2 , uncontrolled with hypoglycemia Levemir -hold. Follow Accu-Cheks, sliding scale -Coronary artery disease with prior history of bypass Aspirin, Coreg, Plavix -Diabetic peripheral neuropathy -Chronic low back pain from arthritis Tylenol as needed -Chronic medical debility Uses a motorized wheelchair -Secondary severe pulmonary hypertension Follow clinically -Moderate mitral and moderate to severe tricuspid regurgitation Follow clinically -Bilateral renal calculi -Asymptomatic choledocholithiasis IV meropenem. Increase IV fluids 100 mL an hour. Repeat labs in the morning. Discussed with the patient and Dr. Pineda.. Ordered midline. Total time spent today about 40 minutes with over 20 minutes of discussion
[2021-05-25 16:50] LABS: Glucose,Whole Blood 122 mg/dL (75-99)
[2021-05-25] MEDS: LOPERAMIDE 2 MG CAP PO PRN (17:02)
--- NOTE | 2021-05-25 18:28 | PN ---
PROGRESS NOTE DATE OF SERVICE: 05/25/2021 REASON FOR FOLLOWUP: ESBL E coli bacteremia. Likely source is urinary. INTERVAL HISTORY: The patient was taken to the OR this morning in this patient who is status post right ureteral calculus, status post cystoscopy with right ureteral stent placement with evidence of significant purulent urine. The patient tolerated the procedure. The patient denies having any chest pain, shortness of breath or cough. No abdominal pain or diarrhea. PHYSICAL EXAMINATION: Blood pressure is 132/74, pulse of 82, temperature 97.7. She is 95% on room air. GENERAL DESCRIPTION: General description is a middle-aged female lying in bed in no distress. RESPIRATORY SYSTEM: Unlabored breathing. Clear to auscultation anteriorly. HEART: S1, S2. Regular rate and rhythm. ABDOMEN: Soft. No tenderness. Right foot is currently dressed. No drainage on the dressing. LABS: Hemoglobin is 7.8, white count 7.1, BUN 45, creatinine 1.39. The x-rays of the foot did not show any abnormality of the heel area. DIAGNOSTIC IMPRESSION AND PLAN: Patient with ESBL Escherichia coli bacteremia. Source is likely urinary. Status post right ureteral stent placement. She is currently covered with meropenem. Transition to Invanz 1 gram daily for another 10 days and close outpatient followup. MMODL / IJN: [id number] /
[2021-05-25 20:41] LABS: Glucose,Whole Blood 196 mg/dL (75-99)
[2021-05-25] MEDS: GABAPENTIN 300 MG CAP PO SCH (20:56)
[2021-05-26] MEDS: SODIUM CHLORIDE 0.9% 1,000 ML IV SCH ×2 (02:05→11:55)
[2021-05-26 05:44] LABS: African American GFR (CKD) 56 (>60 ml/min/1.73 sqM); Anion Gap 5 mmol/L; Blood Urea Nitrogen 40 mg/dL (7-17); Calcium 7.9 mg/dL (8.4-10.2); Carbon Dioxide 22 mmol/L (22-30); Chloride 113 mmol/L (98-107); Glucose 118 mg/dL (74-99); Non-African American GFR(CKD) 49 (>60 ml/min/1.73 sqM); Potassium 5.1 mmol/L (3.5-5.1); Sodium 140 mmol/L (137-145)
[2021-05-26 06:48] LABS: Glucose,Whole Blood 131 mg/dL (75-99)
[2021-05-26] MEDS: INSULIN ASPART (NovoLOG) 100 UNIT/ML VIAL SQ SCH ×2 (07:16→11:56)
[2021-05-26] MEDS: MEROPENEM 500 MG in SODIUM CHLORIDE 0.9% 100 ML IVPB SCH (07:16)
[2021-05-26] MEDS: carvediloL 3.125 MG TAB PO SCH (07:16)
[2021-05-26] MEDS: SODIUM BICARBONATE TAB 650 MG TAB PO SCH (07:16)
[2021-05-26 08:08] VITALS: BP 117/70; PULSE 80; TEMP 98.4
--- NOTE | 2021-05-26 09:48 | P.PN ---
Progress Note - Text Progress Note Date: 05/26/21 Postoperative day 1 status post right ureteral stent placement Dr. Rader , for distal ureteral stone. No acute overnight event. She is on ertapenem for ESBL blood culture. ID is onboard. A/P S/P right ureteral stent placement -Continue IV abx, ID is onboard -She will be scheduled for right-sided ureteroscopy as an outpatient with Dr. Rader to address her stone
[2021-05-26] MEDS ORDERED: ERTAPENEM 1 GM in SODIUM CHLORIDE 0.9% 50 ML IVPB STA (10:06)
[2021-05-26 11:28] LABS: Glucose,Whole Blood 148 mg/dL (75-99)
--- NOTE | 2021-05-26 12:23 | P.PN ---
Subjective Progress Note Date: 05/26/21 Principal diagnosis: Fever, right lower extremity wounds Patient is seen and examined at the bedside. She is status post right great toe amputation. Amputation site is clean dry and intact. She's been afebrile. No acute changes. Plan is for discharge home today with home care. She will follow-up in the wound care clinic as scheduled. Objective - Vital Signs Vital signs: Vital Signs Temp 98.4 F 05/26/21 08:00 Pulse 80 05/26/21 08:00 Resp 18 05/26/21 08:00 BP 117/70 05/26/21 08:00 Pulse Ox 95 05/26/21 08:16 Intake & Output 05/25/21 05/26/21 05/26/21 18:59 06:59 18:59 Intake Total 400 900 Output Total 800 1300 Balance -400 -400 Weight 115.666 kg Intake: IV 400 900 Sodium Chloride 0.9% 1, 900 000 ml @ 75 mls/hr IV . [id number] [facility] Rx#:[id number] Output: Urine 800 1300 Estimated Blood Loss 0 Other: Voiding Method External Catheter External Catheter External Catheter # Bowel Movements 0 - Exam General appearance: The patient is alert, oriented, in no acute distress. Obese. HET: Head is normocephalic and atraumatic. Neck: Supple Extremities: Left lower extremity with AKA stump. Right lower extremity with dressing clean dry and intact. Right great toe amputation site with sutures well approximated, no redness, pink tissue surrounding and warm to touch. Neurological: No focal deficits. Alert and oriented 3. - Labs CBC & Chem 7: 05/25/21 05:37 05/26/21 05:05 Labs: Abnormal Lab Results - Last 24 Hours (Table) 05/25/21 05/25/21 05/25/21 Range/Units 11:46 16:45 20:39 Chloride (98-107) mmol/L BUN (7-17) mg/dL Creatinine (0.52-1.04) mg/dL Glucose (74-99) mg/dL POC Glucose (mg/dL) 136 H 122 H 196 H (75-99) mg/dL Calcium (8.4-10.2) mg/dL 05/26/21 05/26/21 Range/Units 05:05 06:47 Chloride 113 H (98-107) mmol/L BUN 40 H (7-17) mg/dL Creatinine 1.21 H (0.52-1.04) mg/dL Glucose 118 H (74-99) mg/dL POC Glucose (mg/dL) 131 H (75-99) mg/dL Calcium 7.9 L (8.4-10.2) mg/dL Microbiology - Last 24 Hours (Table) 05/25/21 08:49 Urine Culture - Final Urine,Ureter 05/21/21 06:24 Blood Culture - Preliminary Blood No Growth after 120 hours Assessment and Plan Assessment: 1. Postop day # 5 for right great toe amputation 2. Right lower extremity venous stasis ulcers 3. Bacteremia 4. Diabetes mellitus 5. Chronic kidney disease Plan: 1. Continue IV antibiotics per recommendations from infectious disease 2. Wound care on consult. Recommend dressing changes per wound care/infectious disease to right lower extremity. 3. Diet as tolerated 4. Adaptic and Kerlix to right great toe amputation site Thank you For this consultation, we will sign off at this time. Patient is cleared for discharge from vascular surgery. Follow up with Dr. Scruggs in 7-10 days. The impression and plan of care has been dictated as directed. Dr. Stout I performed a history and examination of this patient, discussed the same with the dictator. I agree with the dictator's note ,documented as a scribe. Any additional findings or plans will be noted.
--- NOTE | 2021-05-26 13:22 | PN ---
PROGRESS NOTE DATE OF SERVICE: 05/26/2021 REASON FOR FOLLOWUP: ESBL E coli UTI and bacteremia. INTERVAL HISTORY: The patient is afebrile. The patient is feeling better, breathing comfortably. Complaining of some itching. No chest pain, shortness of breath or cough. No abdominal pain or diarrhea. PHYSICAL EXAMINATION: On examination, blood pressure 117/70 with a pulse of 80, temperature 98.4. She is 98% on room air. GENERAL DESCRIPTION: General description is middle-aged female lying in bed in no distress. RESPIRATORY SYSTEM: Unlabored breathing. Clear to auscultation anteriorly. HEART: S1, S2. Regular rate and rhythm. ABDOMEN: Soft. No tenderness. LABS: BUN of , creatinine 1.21. DIAGNOSTIC IMPRESSION AND PLAN: Patient with ESBL Escherichia coli urinary tract infection and bacteremia, status post ureteral stent placement. The patient's kidney function has improved. Plan is for Invanz 1 gram daily for days and close outpatient followup. MMODL / IJN: [id number] /
--- NOTE | 2021-05-26 14:51 | P.DS ---
Providers Date of admission: 05/17/21 18:19 Expected date of discharge: 05/26/21 Attending physician: Bobby Quinones Consults: 05/17/21 18:20 Consult Physician Routine Consulting Provider: Donavan Byrd Consult Reason/Comments: sirs/sepsis Do you want consulting provider notified?: Yes 05/18/21 12:16 Consult Physician Routine Consulting Provider: Izabel Scruggs Consult Reason/Comments: infected wound Do you want consulting provider notified?: Yes 05/21/21 12:05 Consult Physician Routine Consulting Provider: Jayson Rader Consult Reason/Comments: R ureter obst/stone Do you want consulting provider notified?: Yes Primary care physician: Jason Garcia MD Hospital Course: Chief Complaint: Chills History of presenting complaint: This is a pleasant 60-year-old patient, visiting physicians Dr. Garcia. Chronic stable medical conditions include (above-knee amputation, chronic wound on the right lower extremity being followed by Dr. Scruggs from vascular, at the wound care center by Lauren, and also has home care. Chronic kidney disease stage III, diabetes mellitus type 2, hyperlipidemia, coronary artery disease with bypass, diabetic peripheral neuropathy, lower back pain from arthritis, uses a motorized wheelchair at baseline, severe secondary pulmonary hypertension, mitral and tricuspid regurgitation. She was just discharged from the hospital about 5 days ago following debridement of the right lower extremity. Suggestion was made for amputation of the toe. Patient was seen at the wound care center on this . Patient at home now starts feeling weak diet chills shaky. Decreased appetite. Found to have a fever in the ER, admitted with sepsis. Patient feeling tired and rundown. Per evaluation of ER physician no evidence of compartment syndrome. Patient presented with infected left foot big toe. Septic. Also acute UTI with right ureter stone with hydronephrosis. Bush to be the source for positive blood cultures , E. coli/ESBL. Given IV meropenem. Underwent right big toe ray amputation May 19: Sitting up in bed. A bit tired. Getting IV meropenem. Oral intake fair. Discussed with Dr. Scruggs from vascular. Possible amputation and couple of days. Will order arterial Doppler to get an idea about. Blood flow May 20: saw patient this morning. Laying in bed. Tired. IV meropenem. No new issues May 21: Saw the patient this morning. Pending surgery later this afternoon. Breathing stable. Patient had abnormal pain yesterday evening. Computed tomography scan did show right ureter obstruction with stone and hydronephrosis. Urology consulted. Results discussed with the patient. Later in the day patient underwent right great toe ray amputation. May 22: Laying in bed. Comfortable. Pain control. Feeling tired. Hemoglobin 7.1. Hence we'll give unit of blood. Because of antibodies is taking time for the blood to be ready. Breathing stable. May 23: Pain control. No new issues. Oral intake fair. On IV meropenem. Discussed with Dr. Van. Possible obstructive hydronephrosis felt to be the source of positive blood cultures. Possible stone extraction/stent placement per urology. 1 unit of blood received yesterday noon May 24: Laying in bed. Comfortable. Pain control. Possible ureteral stent placement by urology tomorrow. Discussed with the patient. On IV antibiotics. Oral intake fair. May 25: Today Ureter stent placed by Dr. Van. Thick purulent urine was obtained through the stent. Patient remains on IV meropenem. Good oral intake. IV fluids. May 26: Doing well. Up in bed. Discussed with the patient. Midline place. We will received 12 days of IV Invanz per ID. Follow up with ID as outpatient. Discussed with the community case manager. Also follow with vascular. Wound care per them. Patient also will return as an outpatient for removal of ureter stent. Discussion and discharge planning more than 35 minutes Consultation: Dr. Scruggs from vascular Dr. Byrd from ID Dr. Van from urology Dr. Landaverde from surgery Past medical history to include: Left above-knee amputation, chronic wound to the right lower extremity, chronic kidney disease stage III, diabetes mellitus, hyperlipidemia, coronary artery disease with bypass, diabetic peripheral neuropathy, lower back pain from arthritis, GERD venous stasis ulcers, peripheral neuropathy, Social history: Lives alone. Motorized wheelchair. Home care. She was drinking heavily of April 1991. Smoking up to 3 packs a day up to 2011. Family history: Diabetes, [place], and resume, stroke Physical examination: VITAL SIGNS: 98.4, 80, 18, 111/70, 98% room air GENERAL: Reclining in bed, awake, comfortable EYES: Pupils equal. Conjunctiva normal. NECK: JVD not raised; masses not palpable. HEART: First and second heart sounds are normal; no edema. LUNGS: Respiratory rate increased; decreased breath sounds. ABDOMEN: Soft, nontender, liver spleen not palpable, no masses palpable. PSYCH: Alert and oriented x3; mood and affect normal. EXTREMITIES: Left above-knee amputation. Right foot in a dressing INVESTIGATIONS, reviewed in the clinical context: May 26: Potassium 5.1 BUN 40 creatinine 1.21 May 25: WBC 7.1 hemoglobin 7.5 potassium 5. 44 creatinine 1.39 May 23: WBC 8.2 hemoglobin 7.3 platelets 325 May 22: WBC 7.4 hemoglobin 7.1 potassium 5 BUN 70 creatinine 2.06 May 21: WBC 6.7 hemoglobin 7 platelets 276 potassium 5 BUN [address] abdomen and pelvis without contrast [May 20] right-sided hydronephrosis, h ydroureter 8. Bladder calculus in the lower right ureter.. Multiple bilateral renal calculi. Multiple large calcified gallstones May 19: WBC 9.3 hemoglobin 7.1 potassium 4.7 BUN 78 creatinine 2.71 Accu-Cheks 83, 95, 73 WBC 8.4 hemoglobin 6.4 platelets 241 potassium 4.9 BUN 18 creatinine 2.88 UA positive for leukoesterase, WBC, squamous epithelial cells Influenza type A, type B, sour [place] PCR: Non-not detected Chest x-ray film: No infiltrates CT right lower extremity without contrast: Subcutis edema. No evidence of abscess. Previous studies: 2-D echocardiogram: Moderate concentric LVH. EF 45-50%. Moderate to severe tricuspid regurgitation. Severe pulmonary hypertension. Assessment and plan: -Sepsis from infected right lower extremity wound, UTI IV fluids. IV meropenem. DC home and IV Invanz -Acute on chronic right lower extremity wounds from venous stasis ulcers, especially infected right big toe: IV meropenem. Ray amputation on May [address] Scruggs. Complete course with IV Invanz -Acute right hydronephrosis and hydroureter from right ureter stone: Causing sepsis. E. coli/ESBL. right ureter stent by Dr. Van -May 25. Complete 12 days of IV Invanz -Chronic kidney disease stage III from diabetic nephropathy and nephrosclerosis Follow renal function -Symptomatic Anemia of chronic kidney disease Hemoglobin 7.1. Receive 2 units of blood - Morbid obesity BMI 43.8 Weight loss measures. Follow-up with PCP -Diabetes mellitus type 2 , uncontrolled with hypoglycemia Sugars have been holding good. Hold off Levemir. -Coronary artery disease with prior history of bypass Aspirin, Coreg, Plavix -Diabetic peripheral neuropathy -Chronic low back pain from arthritis Tylenol as needed -Chronic medical debility Uses a motorized wheelchair -Secondary severe pulmonary hypertension Follow clinically -Moderate mitral and moderate to severe tricuspid regurgitation Follow clinically -Bilateral renal calculi -Asymptomatic choledocholithiasis Disposition: Home Home IV antibiotics arranged Patient Condition at Discharge: Fair Plan - Discharge Summary Discharge Rx Participant: Yes New Discharge Prescriptions: New Ertapenem [INVanz] 1 gm IVPB Q24H #12 bag carvediloL [Coreg] 3.125 mg PO BID-W/MEALS #60 tab Sodium Bicarbonate Tab 650 mg PO TID #30 tab Continue Clopidogrel [Plavix] 75 mg PO DAILY Gabapentin [Neurontin] 300 mg PO HS #3 capsule Loperamide [Imodium] 2 mg PO BID PRN PRN Reason: Diarrhea Pantoprazole Sodium 40 mg PO DAILY traMADol-ACETAMINOP 37.5-325MG [Ultracet] 1 tab PO TID PRN PRN Reason: Pain Discontinued Carvedilol [Coreg] 12.5 mg PO BID INSULIN ASPART (NovoLOG) [NovoLOG (formulary)] See Protocol SQ AC-TID PRN PRN Reason: HIGH BLOOD SUGAR Insulin Detemir (Levemir) [Levemir] 20 unit SQ DAILY PRN PRN Reason: HIGH BLOOD SUGAR hydrOXYzine HCL [Atarax] 25 mg PO TID PRN PRN Reason: ANXIETY/ITCHING Discharge Medication List Clopidogrel [Plavix] 75 mg PO DAILY 08/17/18 [History] Gabapentin [Neurontin] 300 mg PO HS #3 capsule 10/21/20 [Rx] Loperamide [Imodium] 2 mg PO BID PRN 05/07/21 [History] Pantoprazole Sodium 40 mg PO DAILY 05/07/21 [History] traMADol-ACETAMINOP 37.5-325MG [Ultracet] 1 tab PO TID PRN 05/17/21 [History] Ertapenem [INVanz] 1 gm IVPB Q24H #12 bag 05/25/21 [Rx] Sodium Bicarbonate Tab 650 mg PO TID #30 tab 05/26/21 [Rx] carvediloL [Coreg] 3.125 mg PO BID-W/MEALS #60 tab 05/26/21 [Rx] Follow up Appointment(s)/Referral(s): Jason Garcia MD [Primary Care Provider] - 1-2 days (Please call when arrive home to set up appointment ) Jayson Rader MD [STAFF PHYSICIAN] - 1 Week (Surgery 06/05) Izabel Scruggs DO [STAFF PHYSICIAN] - 06/04/21 9:15 am (7-10 days) [facility], [NON-STAFF] - ([facility] will call you to set up your first visit for 05/27/21.) [facility] [REFERRING] - ([facility] will call you when they are going to deliver supplies. Supplies will be delivered on: 05/26/21.) Patient Instructions/Handouts: Sepsis (GEN), How to Care for Your Midline Catheter (DC) Activity/Diet/Wound Care/Special Instructions: cbc/cmp - [address]rd Discharge Disposition: HOME WITH HOME HEALTH SERVICES
== END 2021-05-26 13:04 | disposition home health service (06) | DRG 854 ==
LOC: EC 14:45 → 4SSUR 18:19
PROVIDERS: ADMIT Hospitalist; ATTEND Hospitalist
PROC: 30233N1 Transfusion of Nonautologous Red Blood Cells into Peripheral Vein, Percutaneous Approach (ICD-10-PCS; 2021-05-18)
PROC: 0Y6M0Z9 Detachment at Right Foot, Partial 1st Ray, Open Approach (ICD-10-PCS; principal; 2021-05-21 13:00)
PROC: BT1D1ZZ Fluoroscopy of Right Kidney, Ureter and Bladder using Low Osmolar Contrast (ICD-10-PCS; 2021-05-25)
PROC: 0T768DZ Dilation of Right Ureter with Intraluminal Device, Via Natural or Artificial Opening Endoscopic (ICD-10-PCS; 2021-05-25 08:00)
DX: A41.51 Sepsis due to Escherichia coli [E. coli] (principal); E11.52 Type 2 diabetes mellitus with diabetic peripheral angiopathy with gangrene; E87.2 Acidosis; I13.0 Hypertensive heart and chronic kidney disease with heart failure and stage 1 through stage 4 chronic kidney disease, or unspecified chronic kidney disease; L03.115 Cellulitis of right lower limb; M86.8X7 Other osteomyelitis, ankle and foot; N13.6 Pyonephrosis; R18.8 Other ascites; Z16.12 Extended spectrum beta lactamase (ESBL) resistance; Z68.41 Body mass index [BMI] 40.0-44.9, adult; N13.1 Hydronephrosis with ureteral stricture, not elsewhere classified; Z16.21 Resistance to vancomycin; I50.9 Heart failure, unspecified; D63.1 Anemia in chronic kidney disease; I83.018 Varicose veins of right lower extremity with ulcer other part of lower leg; J44.9 Chronic obstructive pulmonary disease, unspecified; K80.70 Calculus of gallbladder and bile duct without cholecystitis without obstruction; E11.22 Type 2 diabetes mellitus with diabetic chronic kidney disease; E11.42 Type 2 diabetes mellitus with diabetic polyneuropathy; E11.621 Type 2 diabetes mellitus with foot ulcer; E11.649 Type 2 diabetes mellitus with hypoglycemia without coma; E11.69 Type 2 diabetes mellitus with other specified complication; E66.01 Morbid (severe) obesity due to excess calories; E78.5 Hyperlipidemia, unspecified; F17.210 Nicotine dependence, cigarettes, uncomplicated; M06.9 Rheumatoid arthritis, unspecified; M19.90 Unspecified osteoarthritis, unspecified site; L97.512 Non-pressure chronic ulcer of other part of right foot with fat layer exposed; I25.10 Atherosclerotic heart disease of native coronary artery without angina pectoris; I27.29 Other secondary pulmonary hypertension; N18.30 Chronic kidney disease, stage 3 unspecified; G54.6 Phantom limb syndrome with pain; G89.29 Other chronic pain; I08.1 Rheumatic disorders of both mitral and tricuspid valves; R53.81 Other malaise; I07.1 Rheumatic tricuspid insufficiency; I87.8 Other specified disorders of veins; R16.2 Hepatomegaly with splenomegaly, not elsewhere classified; I25.2 Old myocardial infarction; Z20.822 Contact with and (suspected) exposure to COVID-19; Z79.899 Other long term (current) drug therapy; Z89.411 Acquired absence of right great toe; Z89.612 Acquired absence of left leg above knee; Z87.442 Personal history of urinary calculi; Z95.1 Presence of aortocoronary bypass graft; Z88.8 Allergy status to other drugs, medicaments and biological substances; Z99.3 Dependence on wheelchair; Z91.040 Latex allergy status; Z87.891 Personal history of nicotine dependence; Z79.02 Long term (current) use of antithrombotics/antiplatelets
CPT/HCPCS: 36410; 36415; 71045; 74018; 74021; 74176; 74420; 76937; 80048; 80053; 81001; 83605; 85025; 85652; 86140; 86850; 86870; 86880; 86900; 86901; 86902; 86920; 87040; 87077; 87081; 87086; 87186; 87430; 87636; 88305; 88311; 94760; 96361; 96374; 96375; 99284

== ENCOUNTER 2021-05-27 15:36 | Inpatient (IN) | payer MEDICARE, OTHER ==
[2021-05-27] MEDS ORDERED: MEROPENEM 1 GM in SODIUM CHLORIDE 0.9% 100 ML IVPB STA (16:10)
[2021-05-27] MEDS ORDERED: SODIUM CHLORIDE 0.9% 1,000 ML IV ONE (16:10)
[2021-05-27 16:26] LABS: Anisocytosis Slight; Basophils % (A) 0 %; Eosinophils # (A) 0.1 k/uL (0-0.7); Eosinophils % (A) 2 %; HCT 25.5 % (34.0-46.0); HGB 7.6 gm/dL (11.4-16.0); Hypochromasia Marked; Lymphocytes # (A) 0.6 k/uL (1.0-4.8); Lymphocytes % (A) 7 %; MCH 25.1 pg (25.0-35.0); MCHC 29.7 g/dL (31.0-37.0); MCV 84.6 fL (80.0-100.0); Mean Platelet Volume 7.9; Monocytes # (A) 0.3 k/uL (0-1.0); Monocytes % (A) 4 %; Neutrophils # (A) 6.9 k/uL (1.3-7.7); Neutrophils % (A) 86 %; Platelet Count 286 k/uL (150-450); RBC 3.01 m/uL (3.80-5.40); RDW 17.4 % (11.5-15.5)
[2021-05-27] MEDS ORDERED: traMADol 50 MG TAB PO PRN (16:27)
[2021-05-27] MEDS ORDERED: ACETAMINOPHEN TAB 325 MG TAB PO PRN (16:27)
[2021-05-27] MEDS ORDERED: NALOXONE 0.4 MG/ML 1 ML VIAL IV PRN (16:27)
[2021-05-27] MEDS ORDERED: MORPHINE SULFATE 4 MG/ML SYRINGE IV PRN (16:27)
[2021-05-27] MEDS ORDERED: ERTAPENEM 1 GM in SODIUM CHLORIDE 0.9% 50 ML IVPB SCH (16:30)
--- NOTE | 2021-05-27 16:32 | ED ---
General Adult HPI - General Chief complaint: Wound/Laceration Stated complaint: Infection Time Seen by Provider: 05/27/21 15:38 Source: EMS, RN notes reviewed, old records reviewed Mode of arrival: EMS Limitations: physical limitation - History of Present Illness Initial comments: Patient is a 60-year-old female with past medical history remarkable for CAD, venous stasis ulcers, cellulitis, GERD, hypertension, [place], COPD, diabetes, renal disease, CK D, chronic pain presents emergency Department after being discharged from the hospital yesterday. Patient recently received a right big toe amputation in addition to wound care for her right lower extremity venous stasis ulcers and right toe. Patient was bacteremic at the time and initially her meropenem that was transitioned to ertapenem. A PICC line was placed and she is discharged home yesterday with wound care at home as well as home antibiotics. Patient states she was having a difficult time caring for herself at home, she was unable to do any dressing changes on her own. She states it is hard to ambulate around her home. She believes she was unable to properly care for self and would like to be readmitted for eventual placement in a rehab facility. She denies any new acute complaints at this time. Patient states her leg is largely unchanged from yesterday when it was last evaluated. She is not received her dose of antibiotics today. She denies any chest pain, shortness of breath, abdominal pain, nausea, vomiting. She denies any worsening pain in her leg. Denies any numbness or weakness in the right lower extremity. Patient otherwise has no acute complaints at this time.Ureteral stent was also placed by urology while she was here. She acid stone extraction from urology as well once she was here. She denies any acute urinary complaints this time. - Related Data Home Medications Medication Instructions Recorded Confirmed Clopidogrel [Plavix] 75 mg PO DAILY 08/17/18 05/27/21 Loperamide [Imodium] 2 mg PO BID PRN 05/07/21 05/27/21 Pantoprazole Sodium 40 mg PO DAILY 05/07/21 05/27/21 traMADol-ACETAMINOP 37.5-325MG 1 tab PO TID PRN 05/17/21 05/27/21 [Ultracet] Previous Rx's Medication Instructions Recorded Gabapentin [Neurontin] 300 mg PO HS #3 capsule 10/21/20 Ertapenem [INVanz] 1 gm IVPB Q24H #12 bag 05/25/21 Sodium Bicarbonate Tab 650 mg PO TID #30 tab 05/26/21 carvediloL [Coreg] 3.125 mg PO BID-W/MEALS #60 tab 05/26/21 Allergies Allergy/AdvReac Type Severity Reaction Status Date / Time vitamin E (d-alpha Allergy Unknown Rash/Hives Verified 05/27/21 17:08 tocopherol) collagenase Clostridium Allergy Rash/Hives Verified 05/27/21 17:08 histolyticu [From Santyl] latex Allergy Rash/Hives Verified 05/27/21 17:08 pollen extracts AdvReac Mild Itching Verified 05/27/21 17:08 dial soap Allergy Unknown Rash/Hives Uncoded 05/27/21 17:08 Review of Systems ROS Statement: Those systems with pertinent positive or pertinent negative responses have been documented in the HPI. Review of Systems: CONST: Denies fever EYES: Denies blurry vision ENT: Denies nasal congestion C/V: Denies Chest pain RESP: Denies shortness of breath GI: Denies abdominal pain : Denies dysuria SKIN: Endorses chronic leg sores MSK: His right leg pain that is chronic NEURO: Denies headache ROS Other: All systems not noted in ROS Statement are negative. Past Medical History Past Medical History: Coronary Artery Disease (CAD), Heart Failure, COPD, Diabetes Mellitus, GERD/Reflux, Hyperlipidemia, Hypertension, Myocardial Infarction (ME), Osteoarthritis (OA), Renal Disease, Rheumatoid Arthritis (RA), Skin Disorder, Vascular Disorder Additional Past Medical History / Comment(s): venous stasis ulcers, hx cellulitis, 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 Last Myocardial Infarction Date:: 2011 History of Any Multi-Drug Resistant Organisms: MRSA Date of last positivie culture/infection: 05/17/21 ESBL / 03/20/19 MRSA MDRO Source:: ESBL URINE/ MRSA BLOOD Past Surgical History: Section Additional Past Surgical History / Comment(s): 2011 CABG 2 vessel, D&C, C- sections x 2, bilateral lower leg/heels debrided., left above the knee amputation (Oct 2020). Past Anesthesia/Blood Transfusion Reactions: Previous Problems w/ Anesthesia Additional Past Anesthesia/Blood Transfusion Reaction / Comment(s): states fluctuation in heart rate., clausterphobia Past Psychological History: No Psychological Hx Reported Smoking Status: Former smoker Past Alcohol Use History: None Reported Past Drug Use History: None Reported - Past Family History Mother Additional Family Medical History / Comment(s): anuerysm Father Family Medical History: CVA/TIA, Diabetes Mellitus, Myocardial Infarction (ME) Sister(s) Additional Family Medical History / Comment(s): one sister had "hole in her heart" and a kidney transplant and another sister had ms. General Exam - General Exam Comments Initial Comments: General: Appears in mild distress secondary to right lower extremity pain. HEAD: Normal with no signs of head trauma. EYES: PERRLA, EOMI, conjunctiva normal, no discharge. ENT: Hearing grossly intact, normal oropharynx. RESPIRATORY: Clear breath sounds bilaterally. No wheezes, rales, or rhonchi. C/V: Regular rate and rhythm. S1 and S2 auscultated, no edema, peripheral pulses 2+ and intact throughout ABD: Abd is soft, nontender, nondistended EXT: She has oozing bandages over right lower extremity wounds. She also has a recent we amputated great arch toe, with stitches still intact. SKIN: Patient has chronic right lower extremity venous stasis wounds in addition to a recently amputated right great toe. Surgical site appears unremarkable, nonerythematous. There is a clear discharge from the chronic venous stasis wounds. There is no acute change per patient. NEURO: Alert and oriented x 4. Cranial nerves II-XII intact. No focal sensory or strength deficits. Limitations: physical limitation Course Vital Signs 05/27/21 05/27/21 05/27/21 15:37 17:30 19:02 Temperature 98.7 F Pulse Rate 89 87 82 Respiratory 18 18 18 Rate Blood Pressure 129/65 137/69 131/63 O2 Sat by Pulse 98 97 95 Oximetry Medical Decision Making - Medical Decision Making Based on patient's presentation and physical exam, she is coming back to the hospital to be readmitted for placement. She already has a known infection that is being treated with IV ertapenem via PICC line. She missed her dose this morning therefore I will provide her with one. She is in pain as well as she will be given analgesia. Basic labs will be obtained. Her exam is relatively unchanged from yesterday based on EMR as well as the patient. She therefore will be readmitted to the hospital to her PCP. Patient's laboratory studies that I ordered were remarkable for a normocytic anemia anemia with a hemoglobin of 7.6 which is chronic. Patient's creatinine is mildly elevated at 1.11 which is improved from her prior visit. Calcium is somewhat low to 8.0, however this is improved from her prior visit. She otherwise has no acute complaints or laboratory findings at this time. I spoke with the patient's admitting physician, Dr. Quinones, who accepted the patient. Consults will be placed to Dr. Scruggs, wound care, as well as infectious disease Dr. Gibbs. Patient was admitted for placement in serious condition. - Lab Data Result diagrams: 05/27/21 16:20 05/27/21 16:20 Lab Results 05/27/21 05/27/21 Range/Units 16:20 16:20 WBC 8.0 (3.8-10.6) k/uL RBC 3.01 L (3.80-5.40) m/uL Hgb 7.6 L (11.4-16.0) gm/dL Hct 25.5 L (34.0-46.0) % MCV 84.6 (80.0-100.0) fL MCH 25.1 (25.0-35.0) pg MCHC 29.7 L (31.0-37.0) g/dL RDW 17.4 H (11.5-15.5) % Plt Count 286 (150-450) k/uL MPV 7.9 Neutrophils % 86 % Lymphocytes % 7 % Monocytes % 4 % Eosinophils % 2 % Basophils % 0 % Neutrophils # 6.9 (1.3-7.7) k/uL Lymphocytes # 0.6 L (1.0-4.8) k/uL Monocytes # 0.3 (0-1.0) k/uL Eosinophils # 0.1 (0-0.7) k/uL Basophils # 0.0 (0-0.2) k/uL Hypochromasia Marked Anisocytosis Slight Sodium 138 (137-145) mmol/L Potassium 4.0 (3.5-5.1) mmol/L Chloride 110 H (98-107) mmol/L Carbon Dioxide 24 (22-30) mmol/L Anion Gap 4 mmol/L BUN 29 H (7-17) mg/dL Creatinine 1.11 H (0.52-1.04) mg/dL Est GFR (CKD-EPI)AfAm 62 (>60 ml/min/1.73 sqM) Est GFR (CKD-EPI)NonAf 54 (>60 ml/min/1.73 sqM) Glucose 118 H (74-99) mg/dL Calcium 8.0 L (8.4-10.2) mg/dL Magnesium 1.7 (1.6-2.3) mg/dL Disposition Clinical Impression: Venous stasis ulcer of right lower extremity, Amputation toe, Receiving intravenous antibiotic treatment as outpatient, Debility Disposition: ADMITTED IP TO THIS HOSP Condition: Serious
[2021-05-27 16:46] LABS: Magnesium 1.7 mg/dL (1.6-2.3)
[2021-05-27] MEDS ORDERED: ERTAPENEM 1 GM in SODIUM CHLORIDE 0.9% 50 ML IVPB ONE (17:00)
[2021-05-27] MEDS ORDERED: traMADol-ACETAMINOP 37.5-325MG 1 EACH TAB PO PRN (17:20)
[2021-05-27] MEDS ORDERED: LOPERAMIDE 2 MG CAP PO PRN (17:20)
[2021-05-27] MEDS: SODIUM CHLORIDE 0.9% 1,000 ML IV SCH (17:29)
[2021-05-27] MEDS: carvediloL 3.125 MG TAB PO SCH (19:02)
[2021-05-27] MEDS ORDERED: GABAPENTIN 300 MG CAP PO SCH (21:00)
[2021-05-27] MEDS: SODIUM BICARBONATE TAB 650 MG TAB PO SCH (23:18)
--- NOTE | 2021-05-27 23:50 | P.HPIM ---
History of Present Illness H&P Date: 05/27/21 Chief Complaint: Right foot wound draining History of presenting complaint: This is a pleasant 60-year-old patient, visiting physicians Dr. Garcia. Chronic stable medical conditions include (above-knee amputation, chronic wound on the right lower extremity being followed by Dr. Scruggs from vascular, at the wound care center by Lauren, and also has home care. Chronic kidney disease stage III, diabetes mellitus type 2, hyperlipidemia, coronary artery disease with bypass, diabetic peripheral neuropathy, lower back pain from arthritis, uses a motorized wheelchair at baseline, severe secondary pulmonary hypertension, mitral and tricuspid regurgitation. May 10 discharged from the hospital , following debridement of the right lower extremity. Suggestion was made for amputation of the toe. Patient was seen at the wound care center on this . 04/16/2021, admitted with sepsis. presented with infected left foot big toe. Septic. Also acute UTI with right ureter stone with hydronephrosis. [place] to be the source for positive blood cultures , E. coli/ESBL. Given IV meropenem. Underwent right big toe ray amputation, by Dr. Scruggs. On May 21. Also underwent stent placement to the right ureter on May [address] Van infected urine was obtained. Kidney function improved with a creatinine of 2.88 down to 1.21 upon discharge on May 26. Patient was discharged and IV Invanz. Plan was patient to have outpatient ureter stent removal. Patient now presents with the right foot wound draining. Unable to take care of fed. No fever no chills. Pain control. Appetite fair. Was not able to manage at home decided to come in. Review of systems: GEN.: None EYES: None HEENT: None NECK: None RESPIRATORY: None CARDIOVASCULAR: None GASTROINTESTINAL: None GENITOURINARY: None MUSCULOSKELETAL: Right lower extremity wounds draining LYMPHATICS: None HEMATOLOGICAL: None PSYCHIATRY: None NEUROLOGICAL: None Past medical history to include: Left above-knee amputation, chronic wound to the right lower extremity, chronic kidney disease stage III, diabetes mellitus, hyperlipidemia, coronary artery disease with bypass, diabetic peripheral neuropathy, lower back pain from arthritis, GERD venous stasis ulcers, peripheral neuropathy, Social history: Lives alone. Motorized wheelchair. Home care. She was drinking heavily of April 1991. Smoking up to 3 packs a day up to 2011. Family history: Diabetes, DC, and resume, stroke Physical examination: VITAL SIGNS: 98.7, 82, 18, 131/63, 95% room air GENERAL: BMI 43.8, reclining in bed, awake, comfortable EYES: Pupils equal. Conjunctiva normal. HEENT: External appearance of nose and ears normal, oral cavity grossly normal. NECK: JVD not raised; masses not palpable. HEART: First and second heart sounds are normal; no edema. LUNGS: Respiratory rate normal; decreased breath sounds. ABDOMEN: Soft, nontender, liver spleen not palpable, no masses palpable. PSYCH: Alert and oriented x3; mood and affect normal. NEUROLOGICAL: Cranial nerves grossly intact; no facial asymmetry, power and sensation grossly intact. EXTREMITIES: Left above-knee amputation. Right lower site of ray amputation, with stitches some bogginess and ischemic changes on the foot. LYMPHATICS: No lymph nodes palpable in the axilla and neck INVESTIGATIONS, reviewed in the clinical context: WBC 8 hemoglobin 7.6 platelets 26 potassium 4 creatinine 1.11 Previous studies: 2-D echocardiogram: Moderate concentric LVH. EF 45-50%. Moderate to severe tricuspid regurgitation. Severe pulmonary hypertension. Blood culture positive for E. coli/ESBL from 05/17/2021. Negative on 05/21/2021 Assessment and plan: - Ray amputation of infected right big toe on May [address] Scruggs. Increase drainage. On IV Invanz. Consult Dr. Scruggs -Acute right hydronephrosis and hydroureter from right ureter stone: Causing sepsis. E. coli/ESBL. right ureter stent by Dr. Van -May 25. IV Invanz -Chronic kidney disease stage III from diabetic nephropathy and nephrosclerosis Follow renal function -Symptomatic Anemia of chronic kidney disease Follow H&H - Morbid obesity BMI 43.8 Weight loss measures. Follow-up with PCP -Diabetes mellitus type 2 , diet-controlled Follow Accu-Cheks -Coronary artery disease with prior history of bypass Aspirin, Coreg, Plavix -Diabetic peripheral neuropathy -Chronic low back pain from arthritis Tylenol as needed -Chronic medical debility Uses a motorized wheelchair -Secondary severe pulmonary hypertension Follow clinically -Moderate mitral and moderate to severe tricuspid regurgitation Follow clinically -Bilateral renal calculi -Asymptomatic choledocholithiasis Consultation to ID and Dr. Scruggs. IV Invanz to continue. Other medications to continue. Care was discussed with the patient. Consult social work msw for ECF IV Invanz. Past Medical History Past Medical History: Coronary Artery Disease (CAD), Heart Failure, COPD, Diabetes Mellitus, GERD/Reflux, Hyperlipidemia, Hypertension, Myocardial Infarc tion (DC), Osteoarthritis (OA), Renal Disease, Rheumatoid Arthritis (RA), Skin Disorder, Vascular Disorder Additional Past Medical History / Comment(s): venous stasis ulcers, hx cellulitis, 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 Last Myocardial Infarction Date:: 2011 History of Any Multi-Drug Resistant Organisms: MRSA Date of last positivie culture/infection: 05/17/21 ESBL / 03/20/19 MRSA MDRO Source:: ESBL URINE/ MRSA BLOOD Past Surgical History: Section Additional Past Surgical History / Comment(s): 2011 CABG 2 vessel, D&C, C- sections x 2, bilateral lower leg/heels debrided., left above the knee amputation (Oct 2020). Past Anesthesia/Blood Transfusion Reactions: Previous Problems w/ Anesthesia Additional Past Anesthesia/Blood Transfusion Reaction / Comment(s): states fluctuation in heart rate., clausterphobia Past Psychological History: No Psychological Hx Reported Smoking Status: Former smoker Past Alcohol Use History: None Reported Past Drug Use History: None Reported - Past Family History Mother Additional Family Medical History / Comment(s): anuerysm Father Family Medical History: CVA/TIA, Diabetes Mellitus, Myocardial Infarction ([place]) Sister(s) Additional Family Medical History / Comment(s): one sister had "hole in her heart" and a kidney transplant and another sister had ms. Medications and Allergies Home Medications Medication Instructions Recorded Confirmed Type Clopidogrel [Plavix] 75 mg PO DAILY 08/17/18 05/27/21 History Gabapentin [Neurontin] 300 mg PO HS #3 capsule 10/21/20 05/27/21 Rx Loperamide [Imodium] 2 mg PO BID PRN 05/07/21 05/27/21 History Pantoprazole Sodium 40 mg PO DAILY 05/07/21 05/27/21 History traMADol-ACETAMINOP 37.5-325MG 1 tab PO TID PRN 05/17/21 05/27/21 History [Ultracet] Ertapenem [INVanz] 1 gm IVPB Q24H #12 bag 05/25/21 05/27/21 Rx Sodium Bicarbonate Tab 650 mg PO TID #30 tab 05/26/21 05/27/21 Rx carvediloL [Coreg] 3.125 mg PO BID-W/MEALS #60 tab 05/26/21 05/27/21 Rx Allergies Allergy/AdvReac Type Severity Reaction Status Date / Time vitamin E (d-alpha Allergy Unknown Rash/Hives Verified 05/27/21 17:08 tocopherol) collagenase Clostridium Allergy Rash/Hives Verified 05/27/21 17:08 histolyticu [From Santyl] latex Allergy Rash/Hives Verified 05/27/21 17:08 pollen extracts AdvReac Mild Itching Verified 05/27/21 17:08 dial soap Allergy Unknown Rash/Hives Uncoded 05/27/21 17:08 Physical Exam Vitals: Vital Signs Temp Pulse Resp BP Pulse Ox 05/27/21 19:02 82 18 131/63 95 05/27/21 17:30 87 18 137/69 97 05/27/21 15:37 98.7 F 89 18 129/65 98 Intake and Output 05/27/21 05/27/21 05/28/21 14:59 22:59 06:59 Other: Weight 115.666 kg Results CBC & Chem 7: 05/27/21 16:20 05/27/21 16:20 Labs: Abnormal Lab Results - Last 24 Hours (Table) 05/27/21 05/27/21 Range/Units 16:20 16:20 RBC 3.01 L (3.80-5.40) m/uL Hgb 7.6 L (11.4-16.0) gm/dL Hct 25.5 L (34.0-46.0) % MCHC 29.7 L (31.0-37.0) g/dL RDW 17.4 H (11.5-15.5) % Lymphocytes # 0.6 L (1.0-4.8) k/uL Chloride 110 H (98-107) mmol/L BUN 29 H (7-17) mg/dL Creatinine 1.11 H (0.52-1.04) mg/dL Glucose 118 H (74-99) mg/dL Calcium 8.0 L (8.4-10.2) mg/dL
[2021-05-28] MEDS: SODIUM CHLORIDE 0.9% 1,000 ML IV SCH (06:39)
[2021-05-28 06:42] VITALS: TEMP 98.5
[2021-05-28] MEDS ORDERED: PANTOPRAZOLE 40 MG TABLET PO SCH (07:30)
[2021-05-28 07:49] VITALS: RESP 16
--- NOTE | 2021-05-28 07:55 | P.GSCN ---
History of Present Illness Consult date: 05/28/21 Reason for Consult: Wound care Requesting physician: Bobby Quinones History of present illness: This is a 60-year-old white female well known to vascular surgical services. Recently discharged 2 days ago from this hospital who was admitted for nonhealing wounds to the right lower extremity, she was status post excisional debridement of the right great toe, however patient had dry gangrene with osteomyelitis and underwent a right great toe amputation on 05/20/2021. The patient went home with a PICC line and was supposed to receive antibiotics, patient wanted to be discharged home with home care services. The incision was well approximated, clean, dry and intact with good surrounding tissue upon discharge. Apparently patient went home and decided she was unable to care for herself, her wounds, and was unable to easily get around therefore came back to the emergency department to be admitted for possible extended care facility/rehab. Patient is afebrile. No acute changes from discharge. Patient is supposed to follow-up tomorrow with wound care clinic, and next week was supposed to follow-up with urology for kidney stones. She denies any fevers, chills, chest pain, shortness of breath, abdominal pain, or leg pain. Review of Systems A 14 point review of systems was completed all pertinent positives and negatives as stated in the HPI Past Medical History Past Medical History: Coronary Artery Disease (CAD), Heart Failure, COPD, Diabetes Mellitus, GERD/Reflux, Hyperlipidemia, Hypertension, Myocardial Infarction ([place]), Osteoarthritis (OA), Renal Disease, Rheumatoid Arthritis (RA), Skin Disorder, Vascular Disorder Additional Past Medical History / Comment(s): venous stasis ulcers, hx cellulitis, left AKA Oct 2020., IDDM type II, neuropathy, CKD stage III, Chronic back and bilateral leg pain, gallstones, R breast slightly enlarged., states rash on back of thighs from slide board used for transferring., states current wound right heel and smaller wounds on leg.slightly enlarged-punch skin bx nega tive. 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 Past Anesthesia/Blood Transfusion Reactions: Previous Problems w/ Anesthesia Additional Past Anesthesia/Blood Transfusion Reaction / Comm: states fluctuation in heart rate., clausterphobia Past Psychological History: No Psychological Hx Reported Smoking Status: Former smoker Past Alcohol Use History: None Reported Past Drug Use History: None Reported - Past Family History Mother Additional Family Medical History / Comment(s): anuerysm Father Family Medical History: CVA/TIA, Diabetes Mellitus, Myocardial Infarction ([place]) Sister(s) Additional Family Medical History / Comment(s): one sister had "hole in her heart" and a kidney transplant and another sister had ms. Medications and Allergies Home Medications Medication Instructions Recorded Confirmed Type Clopidogrel [Plavix] 75 mg PO DAILY 08/17/18 05/27/21 History Gabapentin [Neurontin] 300 mg PO HS #3 capsule 10/21/20 05/27/21 Rx Loperamide [Imodium] 2 mg PO BID PRN 05/07/21 05/27/21 History Pantoprazole Sodium 40 mg PO DAILY 05/07/21 05/27/21 History traMADol-ACETAMINOP 37.5-325MG 1 tab PO TID PRN 05/17/21 05/27/21 History [Ultracet] Ertapenem [INVanz] 1 gm IVPB Q24H #12 bag 05/25/21 05/27/21 Rx Sodium Bicarbonate Tab 650 mg PO TID #30 tab 05/26/21 05/27/21 Rx carvediloL [Coreg] 3.125 mg PO BID-W/MEALS #60 tab 05/26/21 05/27/21 Rx Allergies Allergy/AdvReac Type Severity Reaction Status Date / Time vitamin E (d-alpha Allergy Unknown Rash/Hives Verified 05/27/21 17:08 tocopherol) collagenase Clostridium Allergy Rash/Hives Verified 05/27/21 17:08 histolyticu [From Santyl] latex Allergy Rash/Hives Verified 05/27/21 17:08 pollen extracts AdvReac Mild Itching Verified 05/27/21 17:08 dial soap Allergy Unknown Rash/Hives Uncoded 05/27/21 17:08 Surgical - Exam Vital Signs Temp Pulse Resp BP Pulse Ox 98.7 F 89 18 129/65 98 05/27/21 15:37 05/27/21 15:37 05/27/21 15:37 05/27/21 15:37 05/27/21 15:37 General appearance: The patient is alert, oriented, in no acute distress. HET: Head is normocephalic and atraumatic. Neck: Supple without lymphadenopathy. Trachea midline. Heart: S1 S2. Regular rate and rhythm. Lungs: Clear to auscultation. Abdomen: Soft, nontender, nondistended. Extremities: Left lower extremity with [id number] amputation stump. Right lower extremity with dressing clean dry and intact, right great toe amputation site well approximated with sutures, warm to the touch, no drainage, surrounding tissue is pink. Neurological: No focal deficits. Results - Labs 05/27/21 16:20 05/27/21 16:20 Abnormal Lab Results - Last 24 Hours (Table) 05/27/21 05/27/21 Range/Units 16:20 16:20 RBC 3.01 L (3.80-5.40) m/uL Hgb 7.6 L (11.4-16.0) gm/dL Hct 25.5 L (34.0-46.0) % MCHC 29.7 L (31.0-37.0) g/dL RDW 17.4 H (11.5-15.5) % Lymphocytes # 0.6 L (1.0-4.8) k/uL Chloride 110 H (98-107) mmol/L BUN 29 H (7-17) mg/dL Creatinine 1.11 H (0.52-1.04) mg/dL Glucose 118 H (74-99) mg/dL Calcium 8.0 L (8.4-10.2) mg/dL Diabetes panel 05/27/21 Range/Units 16:20 Sodium 138 (137-145) mmol/L Potassium 4.0 (3.5-5.1) mmol/L Chloride 110 H (98-107) mmol/L Carbon Dioxide 24 (22-30) mmol/L BUN 29 H (7-17) mg/dL Creatinine 1.11 H (0.52-1.04) mg/dL Glucose 118 H (74-99) mg/dL Calcium 8.0 L (8.4-10.2) mg/dL Calcium panel 05/27/21 Range/Units 16:20 Calcium 8.0 L (8.4-10.2) mg/dL Pituitary panel 05/27/21 Range/Units 16:20 Sodium 138 (137-145) mmol/L Potassium 4.0 (3.5-5.1) mmol/L Chloride 110 H (98-107) mmol/L Carbon Dioxide 24 (22-30) mmol/L BUN 29 H (7-17) mg/dL Creatinine 1.11 H (0.52-1.04) mg/dL Glucose 118 H (74-99) mg/dL Calcium 8.0 L (8.4-10.2) mg/dL Adrenal panel 05/27/21 Range/Units 16:20 Sodium 138 (137-145) mmol/L Potassium 4.0 (3.5-5.1) mmol/L Chloride 110 H (98-107) mmol/L Carbon Dioxide 24 (22-30) mmol/L BUN 29 H (7-17) mg/dL Creatinine 1.11 H (0.52-1.04) mg/dL Glucose 118 H (74-99) mg/dL Calcium 8.0 L (8.4-10.2) mg/dL Assessment and Plan Assessment: 1. Status post amputation of right great toe 05/20/2021 2. Bacteremia, patient went home on PICC line for outpatient IV antibiotics set up per infectious disease 3. Venous stasis ulcers to right lower extremity following with wound care clinic Plan: 1. Continue symptomatic and supportive care 2. IV antibiotics per recommendations from infectious disease 3. Wound care per recommendations from wound care clinic to right lower extremity 4. There is no indication for any vascular surgical intervention wound care will be provided by the wound care clinic as scheduled for outpatient 5. Patient to follow up outpatient with vascular surgery in 7-10 days 6. Agree outpatient rehab would be appropriate for patient 7. Physical therapy Thank you for this consultation, we will sign off at this time. The impression and plan of care has been dictated as directed. Dr. Scruggs I performed a history and examination of this patient, discussed the same with the dictator. I agree with the dictator's note ,documented as a scribe. Any additional findings or plans will be noted.
[2021-05-28] MEDS: SODIUM BICARBONATE TAB 650 MG TAB PO SCH (08:01)
[2021-05-28] MEDS: carvediloL 3.125 MG TAB PO SCH (08:01)
[2021-05-28] MEDS ORDERED: CLOPIDOGREL 75 MG TAB PO SCH (09:00)
--- NOTE | 2021-05-28 12:35 | P.CONS ---
History of Present Illness - Reason for Consult Consult date: 05/28/21 wound care - History of Present Illness This is a 60 year old female patient known to the wound care center with multiple ulcerations to the right lower extremities. The ulceration was treated with 3 layer compression wrap with hydrofera blue. Original cause of wound was Trauma. The wound is currently classified as a Grade 2 wound with etiology of Diabetic Wound/Ulcer of the Lower Extremity and is located on the Right,Medial Toe Great. The wound measures 3.6cm length x 2.7cm width x 0.1cm depth; 7.634cm^2 area and 0.763cm^3 volume. There is Fat Layer (Subcutaneous Tissue) Exposed exposed. There is no tunneling or undermining noted. There is a medium amount of serous drainage noted. Foul odor after cleansing was noted. The wound margin is distinct with the outline attached to the wound base. There is no granulation within the wound bed. There is a large (67-100%) amount of necrotic tissue within the wound bed including Eschar and Adherent Slough. The periwound skin appearance exhibited: Callus, Maceration. The periwound skin appearance did not exhibit: Crepitus, Excoriation, Induration, Rash, Scarring, Dry/Scaly, Atrophie [place], Cyanosis, Ecchymosis, Erythema. Original cause of wound was Gradually Appeared. The wound is currently classified as a Full Thickness Without Exposed Support Structures wound with etiology of Venous Leg Ulcer and is located on the Medial,Superior Lower Leg. The wound measures 10.4cm length x 7.2cm width x 0.2cm depth; 58.811cm^2 area and 11.762cm^3 volume. There is Fat L erickson (Subcutaneous Tissue) Exposed exposed. There is no tunneling or undermining noted. There is a large amount of serous drainage noted. Foul odor after cleansing was noted. The wound margin is indistinct and nonvisible. There is small (1-33%) red granulation within the wound bed. There is a large (67-100%) amount of necrotic tissue within the wound bed including Adherent Slough. The periwound skin appearance exhibited: Maceration, Hemosiderin Staining, Erythema. The periwound skin appearance did not exhibit: Callus, Crepitus, Excoriation, Induration, Rash, Scarring, Dry/Scaly, Atrophie [place], Cyanosis. The surrounding wound skin color is noted with erythema which is circumferential. Original cause of wound was Not Known. The wound is currently classified as a Category/Stage III wound with etiology of Pressure Ulcer and is located on the Right,Posterior Calcaneus. The wound measures 5.9cm length x 4.3cm width x 0.1cm depth; 19.926cm^2 area and 1.993cm^3 volume. There is Fat Layer (Subcutaneous Tissue) Exposed exposed. There is no tunneling or undermining noted. There is a large amount of serous drainage noted. The wound margin is thickened. There is no granulation within the wound bed. There is a large (67-100%) amount of necrotic tissue within the wound bed including Eschar and Adherent Slough. The periwound skin appearance exhibited: Maceration. The periwound skin appearance did not exhibit: Callus, Crepitus, Excoriation, Induration, Rash, Scarring, Dry/Scaly. Original cause of wound was Gradually Appeared. The wound is currently classified as a Full Thickness Without Exposed Support Structures wound with etiology of Venous Leg Ulcer and is located on the Right,Posterior Lower Leg. The wound measures 12.5cm length x 6.5cm width x 0.1cm depth; 63.814cm^2 area and 6.381cm^3 volume. The wound is limited to skin breakdown. There is no tunneling or undermining noted. There is a large amount of serous drainage noted. Foul odor after cleansing was noted. The wound margin is indistinct and nonvisible. There is medium (34-66%) pink granulation within the wound bed. There is a medium (34-66%) amount of necrotic tissue within the wound bed including Adherent Slough. The periwound skin appearance exhibited: Scarring, Maceration, Hemosiderin Staining, Erythema. The periwound skin appearance did not exhibit: Dry/Scaly. The surrounding wound skin color is noted with erythema which is circumferential. Review Of Systems: Constitutional: No fever, no chills, no night sweats. No weight change. No weakness, fatigue or lethargy. No daytime sleepiness. Integumentary:reports wounds, no lesions. No rash or pruritus. No unusual bruising. No change in hair or nails. Physical exam: General Appearance: Alert, cooperative, no distress, appears stated age. Skin: See HPI all other Skin color, texture, tugor normal, no rashes or lesions. Neurologic: Alert oriented x3 Assessment: 1. Diabetes mellitus due to underlying condition with foot ulcer 2. Non-pressure chronic ulcer of other part of right foot with fat layer exposed 3. Varicose veins of right lower extremity with ulcer of unspecified site 4. Pressure ulcer right heel stage 2 5. Other obesity due to excess calories Plan: 1. Right heel: Apply honey alginate, saline moist gauze, dry gauze, and rolled gauze. Change Wednesday, , and wednesday. 2. Right lower extremity: Apply absorptive silver moisten, rolled gauze, and rolando wrap to secure. Change outer dressing daily if saturated. Change wednesday, and wednesday. 3. Next wound care appointment 06/12/2021 @ 1:30. DNP note has been reviewed and discussed with Dr. Solomon and the impression and plan of care has been directed as dictated. Past Medical History Past Medical History: Coronary Artery Disease (CAD), Heart Failure, COPD, Diabetes Mellitus, GERD/Reflux, Hyperlipidemia, Hypertension, Myocardial Infarction (VT), Osteoarthritis (OA), Renal Disease, Rheumatoid Arthritis (RA), Skin Disorder, Vascular Disorder Additional Past Medical History / Comment(s): venous stasis ulcers, hx cellulitis, 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 Past Anesthesia/Blood Transfusion Reactions: Previous Problems w/ Anesthesia Additional Past Anesthesia/Blood Transfusion Reaction / Comm: states fluctuation in heart rate., clausterphobia Past Psychological History: No Psychological Hx Reported Smoking Status: Former smoker Past Alcohol Use History: None Reported Past Drug Use History: None Reported - Past Family History Mother Additional Family Medical History / Comment(s): anuerysm Father Family Medical History: CVA/TIA, Diabetes Mellitus, Myocardial Infarction (VT) Sister(s) Additional Family Medical History / Comment(s): one sister had "hole in her heart" and a kidney transplant and another sister had ms. Medications and Allergies Home Medications Medication Instructions Recorded Confirmed Type Clopidogrel [Plavix] 75 mg PO DAILY 08/17/18 05/27/21 History Gabapentin [Neurontin] 300 mg PO HS #3 capsule 10/21/20 05/27/21 Rx Loperamide [Imodium] 2 mg PO BID PRN 05/07/21 05/27/21 History Pantoprazole Sodium 40 mg PO DAILY 05/07/21 05/27/21 History traMADol-ACETAMINOP 37.5-325MG 1 tab PO TID PRN 05/17/21 05/27/21 History [Ultracet] Ertapenem [INVanz] 1 gm IVPB Q24H #12 bag 05/25/21 05/27/21 Rx Sodium Bicarbonate Tab 650 mg PO TID #30 tab 05/26/21 05/27/21 Rx carvediloL [Coreg] 3.125 mg PO BID-W/MEALS #60 tab 05/26/21 05/27/21 Rx Allergies Allergy/AdvReac Type Severity Reaction Status Date / Time vitamin E (d-alpha Allergy Unknown Rash/Hives Verified 05/27/21 17:08 tocopherol) collagenase Clostridium Allergy Rash/Hives Verified 05/27/21 17:08 histolyticu [From Santyl] latex Allergy Rash/Hives Verified 05/27/21 17:08 pollen extracts AdvReac Mild Itching Verified 05/27/21 17:08 dial soap Allergy Unknown Rash/Hives Uncoded 05/27/21 17:08 Physical Exam Vitals: Vital Signs Temp Pulse Resp BP Pulse Ox 05/28/21 07:43 76 16 118/61 93 L 05/28/21 06:40 98.5 F 76 17 113/55 97 05/27/21 19:02 82 18 131/63 95 05/27/21 17:30 87 18 137/69 97 05/27/21 15:37 98.7 F 89 18 129/65 98 Intake and Output 05/27/21 05/28/21 05/28/21 22:59 06:59 14:59 Other: Weight 115.666 kg Results CBC & Chem 7: 05/27/21 16:20 05/27/21 16:20 Labs: Abnormal Lab Results - Last 24 Hours (Table) 05/27/21 05/27/21 Range/Units 16:20 16:20 RBC 3.01 L (3.80-5.40) m/uL Hgb 7.6 L (11.4-16.0) gm/dL Hct 25.5 L (34.0-46.0) % MCHC 29.7 L (31.0-37.0) g/dL RDW 17.4 H (11.5-15.5) % Lymphocytes # 0.6 L (1.0-4.8) k/uL Chloride 110 H (98-107) mmol/L BUN 29 H (7-17) mg/dL Creatinine 1.11 H (0.52-1.04) mg/dL Glucose 118 H (74-99) mg/dL Calcium 8.0 L (8.4-10.2) mg/dL Assessment and Plan (1) Pressure ulcer of right heel, stage 2 Current Visit: Yes Status: Acute Code(s): L89.612 - PRESSURE ULCER OF RIGHT HEEL, STAGE 2 SNOMED Code(s): 975048537 (2) Venous stasis ulcer of right lower extremity Current Visit: Yes Status: Acute Code(s): I83.019 - VARICOSE VEINS OF RIGHT LOWER EXTREMITY W ULCER OF UNSP SITE; L97.919 - NON-PRS CHRONIC ULC UNSP PRT OF R LOW LEG W UNSP SEVERITY SNOMED Code(s): 146624204 (3) Diabetic foot ulcer associated with type 2 diabetes mellitus, with fat layer exposed Current Visit: No Status: Acute Code(s): E11.621 - TYPE 2 DIABETES MELLITUS WITH FOOT ULCER; L97.502 - NON-PRS CHRONIC ULCER OTH PRT UNSP FOOT W FAT LAYER EXPOSED SNOMED Code(s): 6007203164243 (4) Venous stasis ulcer of right lower leg with edema of right lower leg Current Visit: No Status: Acute Code(s): I83.019 - VARICOSE VEINS OF RIGHT LOWER EXTREMITY W ULCER OF UNSP SITE; I83.891 - VARICOSE VEINS OF R LOW EXTREM WITH OTHER COMPLICATIONS; L97.919 - NON-PRS CHRONIC ULC UNSP PRT OF R LOW LEG W UNSP SEVERITY; R60.9 - EDEMA, UNSPECIFIED SNOMED Code(s): 89268988437759468
--- NOTE | 2021-05-28 12:41 | P.DS ---
Providers Date of admission: 05/27/21 16:51 Expected date of discharge: 05/28/21 Attending physician: Bobby Quinones Consults: 05/27/21 16:28 Consult Physician Routine Consulting Provider: Donavan Gibbs Consult Reason/Comments: leg infection, bacteremia Do you want consulting provider notified?: Yes 05/27/21 22:13 Consult Physician Routine Consulting Provider: Izabel Scruggs Consult Reason/Comments: Wound care Do you want consulting provider notified?: Yes, Notify in am Primary care physician: Jason Garcia MD Hospital Course: Chief Complaint: Right foot wound draining History of presenting complaint: This is a pleasant 60-year-old patient, visiting physicians Dr. Garcia. Chronic stable medical conditions include (above-knee amputation, chronic wound on the right lower extremity being followed by Dr. Scruggs from vascular, at the wound care center by Lauren, and also has home care. Chronic kidney disease stage III, diabetes mellitus type 2, hyperlipidemia, coronary artery disease with bypass, diabetic peripheral neuropathy, lower back pain from arthritis, uses a motorized wheelchair at baseline, severe secondary pulmonary hypertension, mitral and tricuspid regurgitation. May 10 discharged from the hospital , following debridement of the right lower extremity. Suggestion was made for amputation of the toe. Patient was seen at the wound care center on this . 04/16/2021, admitted with sepsis. presented with infected left foot big toe. Septic. Also acute UTI with right ureter stone with hydronephrosis. [place] to be the source for positive blood cultures , E. coli/ESBL. Given IV meropenem. Underwent right big toe ray amputation, by Dr. Scruggs. On May 21. Also underwent stent placement to the right ureter on May [address] Van infected urine was obtained. Kidney function improved with a creatinine of 2.88 down to 1.21 upon discharge on May 26. Patient was discharged and IV Invanz. Plan was patient to have outpatient ureter stent removal. Patient now presents with the right foot wound draining. Unable to take care of dressing. No fever no chills. Pain control. Appetite fair. Was not able to manage at home decided to come in. May 28: Patient was seen by vascular surgery. No further changes. Wound care to continue. Continued IV antibiotics. Spoke to the patient has spoken health and social care teacher. Patient has been accepted at rehab Discussion and discharge planning more than 35 minutes Consultation: Dr. Scruggs from vascular Dr. Gibbs from ID Past medical history to include: Left above-knee amputation, chronic wound to the right lower extremity, chronic kidney disease stage III, diabetes mellitus, hyperlipidemia, coronary artery disease with bypass, diabetic peripheral neuropathy, lower back pain from arthritis, GERD venous stasis ulcers, peripheral neuropathy, Social history: Lives alone. Motorized wheelchair. Home care. She was drinking heavily of April 1991. Smoking up to 3 packs a day up to 2011. Family history: Diabetes, OR, and resume, stroke Physical examination: VITAL SIGNS: 98.5, 76, 16, 118/61, 93% room air GENERAL: BMI 43.8, reclining in bed, awake, comfortable EYES: Pupils equal. Conjunctiva normal. HEENT: External appearance of nose and ears normal, oral cavity grossly normal. NECK: JVD not raised; masses not palpable. HEART: First and second heart sounds are normal; no edema. LUNGS: Respiratory rate normal; decreased breath sounds. ABDOMEN: Soft, nontender, liver spleen not palpable, no masses palpable. PSYCH: Alert and oriented x3; mood and affect normal. NEUROLOGICAL: Cranial nerves grossly intact; no facial asymmetry, power and sensation grossly intact. EXTREMITIES: Left above-knee amputation. Right lower site of ray amputation, with stitches, tenderness and ischemic changes on the foot. INVESTIGATIONS, reviewed in the clinical context: WBC 8 hemoglobin 7.6 platelets 26 potassium 4 creatinine 1.11 Previous studies: 2-D echocardiogram: Moderate concentric LVH. EF 45-50%. Moderate to severe tricuspid regurgitation. Severe pulmonary hypertension. Blood culture positive for E. coli/ESBL from 05/17/2021. Negative on 05/21/2021 Assessment and plan: - Ray amputation of infected right big toe on May [address] Scruggs. Increase drainage. On IV Invanz. Consult Dr. Scruggs -Acute right hydronephrosis and hydroureter from right ureter stone: Causing sepsis. E. coli/ESBL. right ureter stent by Dr. Van -May 25. IV Invanz -Chronic kidney disease stage III from diabetic nephropathy and nephrosclerosis Follow renal function -Symptomatic Anemia of chronic kidney disease Follow H&H - Morbid obesity BMI 43.8 Weight loss measures. Follow-up with PCP -Diabetes mellitus type 2 , diet-controlled Follow Accu-Cheks -Coronary artery disease with prior history of bypass Aspirin, Coreg, Plavix -Diabetic peripheral neuropathy -Chronic low back pain from arthritis Tylenol as needed -Chronic medical debility Uses a motorized wheelchair -Secondary severe pulmonary hypertension Follow clinically -Moderate mitral and moderate to severe tricuspid regurgitation Follow clinically -Bilateral renal calculi -Asymptomatic choledocholithiasis Disposition: REPLACED BY [facility] Plan - Discharge Summary New Discharge Prescriptions: Continue Clopidogrel [Plavix] 75 mg PO DAILY Gabapentin [Neurontin] 300 mg PO HS #3 capsule Loperamide [Imodium] 2 mg PO BID PRN PRN Reason: Diarrhea Pantoprazole Sodium 40 mg PO DAILY traMADol-ACETAMINOP 37.5-325MG [Ultracet] 1 tab PO TID PRN PRN Reason: Pain Ertapenem [INVanz] 1 gm IVPB Q24H #12 bag carvediloL [Coreg] 3.125 mg PO BID-W/MEALS #60 tab Sodium Bicarbonate Tab 650 mg PO TID #30 tab Discharge Medication List Clopidogrel [Plavix] 75 mg PO DAILY 08/17/18 [History] Gabapentin [Neurontin] 300 mg PO HS #3 capsule 10/21/20 [Rx] Loperamide [Imodium] 2 mg PO BID PRN 05/07/21 [History] Pantoprazole Sodium 40 mg PO DAILY 05/07/21 [History] traMADol-ACETAMINOP 37.5-325MG [Ultracet] 1 tab PO TID PRN 05/17/21 [History] Ertapenem [INVanz] 1 gm IVPB Q24H #12 bag 05/25/21 [Rx] Sodium Bicarbonate Tab 650 mg PO TID #30 tab 05/26/21 [Rx] carvediloL [Coreg] 3.125 mg PO BID-W/MEALS #60 tab 05/26/21 [Rx] Follow up Appointment(s)/Referral(s): Jason Garcia MD [Primary Care Provider] - 1-2 days
[2021-05-28 15:37] VITALS: BP 123/79; PULSE 74
[2021-05-28] MEDS ORDERED: ERTAPENEM 1 GM in SODIUM CHLORIDE 0.9% 50 ML IVPB SCH (17:00)
== END 2021-05-28 15:33 | DRG 638 ==
LOC: EC 15:36 → 4SSUR 16:51
PROVIDERS: ADMIT Hospitalist; ATTEND Hospitalist
DX: E11.621 Type 2 diabetes mellitus with foot ulcer (principal); I13.0 Hypertensive heart and chronic kidney disease with heart failure and stage 1 through stage 4 chronic kidney disease, or unspecified chronic kidney disease; N13.2 Hydronephrosis with renal and ureteral calculous obstruction; Z68.41 Body mass index [BMI] 40.0-44.9, adult; E11.42 Type 2 diabetes mellitus with diabetic polyneuropathy; E11.22 Type 2 diabetes mellitus with diabetic chronic kidney disease; D63.1 Anemia in chronic kidney disease; E66.01 Morbid (severe) obesity due to excess calories; E78.5 Hyperlipidemia, unspecified; Z20.822 Contact with and (suspected) exposure to COVID-19; Z87.891 Personal history of nicotine dependence; G89.29 Other chronic pain; I08.1 Rheumatic disorders of both mitral and tricuspid valves; I25.10 Atherosclerotic heart disease of native coronary artery without angina pectoris; I25.2 Old myocardial infarction; I27.29 Other secondary pulmonary hypertension; I50.9 Heart failure, unspecified; I83.018 Varicose veins of right lower extremity with ulcer other part of lower leg; J44.9 Chronic obstructive pulmonary disease, unspecified; K80.50 Calculus of bile duct without cholangitis or cholecystitis without obstruction; L89.612 Pressure ulcer of right heel, stage 2; L97.512 Non-pressure chronic ulcer of other part of right foot with fat layer exposed; M06.9 Rheumatoid arthritis, unspecified; M19.90 Unspecified osteoarthritis, unspecified site; Z87.440 Personal history of urinary (tract) infections; N18.30 Chronic kidney disease, stage 3 unspecified; M47.899 Other spondylosis, site unspecified; K21.9 Gastro-esophageal reflux disease without esophagitis; Z60.2 Problems related to living alone; Z71.3 Dietary counseling and surveillance; Z96.0 Presence of urogenital implants; Z82.0 Family history of epilepsy and other diseases of the nervous system; Z84.1 Family history of disorders of kidney and ureter; Z82.49 Family history of ischemic heart disease and other diseases of the circulatory system; Z82.3 Family history of stroke; Z83.3 Family history of diabetes mellitus; Z87.442 Personal history of urinary calculi; Z79.02 Long term (current) use of antithrombotics/antiplatelets; Z79.4 Long term (current) use of insulin; Z89.411 Acquired absence of right great toe; Z89.612 Acquired absence of left leg above knee; Z95.1 Presence of aortocoronary bypass graft; Z98.890 Other specified postprocedural states; Z79.899 Other long term (current) drug therapy
CPT/HCPCS: 36415; 80048; 83735; 85025; 87635; 99284; 99285

== ENCOUNTER 2021-05-30 18:58 | Emergency (ER) | payer MEDICARE, OTHER ==
[2021-05-30] MEDS ORDERED: SODIUM CHLORIDE 0.9% 1,000 ML IV STA (19:14)
[2021-05-30] MEDS ORDERED: PANTOPRAZOLE 40 MG/10 ML VIAL IVP STA (19:29)
[2021-05-30 20:08] LABS: Anisocytosis Slight; Basophils % (A) 1 %; Eosinophils # (A) 0.2 k/uL (0-0.7); Eosinophils % (A) 4 %; HCT 26.2 % (34.0-46.0); HGB 7.9 gm/dL (11.4-16.0); Hypochromasia Marked; Lymphocytes # (A) 0.6 k/uL (1.0-4.8); Lymphocytes % (A) 10 %; MCH 25.4 pg (25.0-35.0); MCV 84.7 fL (80.0-100.0); Mean Platelet Volume 7.7; Monocytes # (A) 0.3 k/uL (0-1.0); Monocytes % (A) 4 %; Neutrophils # (A) 5.1 k/uL (1.3-7.7); Neutrophils % (A) 81 %; Platelet Count 289 k/uL (150-450); RDW 17.9 % (11.5-15.5); WBC 6.4 k/uL (3.8-10.6)
[2021-05-30 20:17] LABS: INR 1.1 (<1.2); Partial Thromboplastin Time 23.2 sec (22.0-30.0); Prothrombin Time 11.6 sec (9.0-12.0)
[2021-05-30 20:19] LABS: Albumin 2.5 g/dL (3.5-5.0); Magnesium 1.9 mg/dL (1.6-2.3); Potassium 4.5 mmol/L (3.5-5.1); Total Bilirubin 0.2 mg/dL (0.2-1.3); Total Protein 5.5 g/dL (6.3-8.2)
--- NOTE | 2021-05-30 21:58 | ED ---
General Adult HPI - General Chief complaint: Recheck/Abnormal Lab/Rx Stated complaint: low hemoglobin Time Seen by Provider: 05/30/21 19:14 Source: patient, EMS, RN notes reviewed Mode of arrival: EMS Limitations: no limitations - History of Present Illness Initial comments: Patient is a 60-year-old female that presents to the emergency Department from [facility] with reported low hemoglobin of 6.9 this morning. She denied any symptoms such as fatigue weakness. She was otherwise a well-appearing 60-year-old female with a left AKA. She denied any chest pain shortness of breath headache nausea vomiting diarrhea constipation fever fatigue chills. - Related Data Home Medications Medication Instructions Recorded Confirmed Clopidogrel [Plavix] 75 mg PO DAILY 08/17/18 05/27/21 Loperamide [Imodium] 2 mg PO BID PRN 05/07/21 05/27/21 Pantoprazole Sodium 40 mg PO DAILY 05/07/21 05/27/21 traMADol-ACETAMINOP 37.5-325MG 1 tab PO TID PRN 05/17/21 05/27/21 [Ultracet] Previous Rx's Medication Instructions Recorded Gabapentin [Neurontin] 300 mg PO HS #3 capsule 10/21/20 Ertapenem [INVanz] 1 gm IVPB Q24H #12 bag 05/25/21 Sodium Bicarbonate Tab 650 mg PO TID #30 tab 05/26/21 carvediloL [Coreg] 3.125 mg PO BID-W/MEALS #60 tab 05/26/21 Allergies Allergy/AdvReac Type Severity Reaction Status Date / Time vitamin E (d-alpha Allergy Unknown Rash/Hives Verified 05/30/21 19:07 tocopherol) collagenase Clostridium Allergy Rash/Hives Verified 05/30/21 19:07 histolyticu [From Santyl] latex Allergy Rash/Hives Verified 05/30/21 19:07 pollen extracts AdvReac Mild Itching Verified 05/30/21 19:07 dial soap Allergy Unknown Rash/Hives Uncoded 05/30/21 19:07 Review of Systems ROS Statement: Those systems with pertinent positive or pertinent negative responses have been documented in the HPI. ROS Other: All systems not noted in ROS Statement are negative. Past Medical History Past Medical History: Coronary Artery Disease (CAD), Heart Failure, COPD, Diabetes Mellitus, GERD/Reflux, Hyperlipidemia, Hypertension, Myocardial Infarction ([place]), Osteoarthritis (OA), Renal Disease, Rheumatoid Arthritis (RA), Skin Disorder, Vascular Disorder Additional Past Medical History / Comment(s): venous stasis ulcers, hx cellulitis, 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 Last Myocardial Infarction Date:: 2011 History of Any Multi-Drug Resistant Organisms: MRSA Date of last positivie culture/infection: 05/17/21 ESBL / 03/20/19 MRSA MDRO Source:: ESBL URINE/ MRSA BLOOD Past Surgical History: Section Additional Past Surgical History / Comment(s): 2011 CABG 2 vessel, D&C, C- sections x 2, bilateral lower leg/heels debrided., left above the knee amputation (Oct 2020). Past Anesthesia/Blood Transfusion Reactions: Previous Problems w/ Anesthesia Additional Past Anesthesia/Blood Transfusion Reaction / Comment(s): states fluctuation in heart rate., clausterphobia Past Psychological History: No Psychological Hx Reported Smoking Status: Former smoker Past Alcohol Use History: None Reported Past Drug Use History: None Reported - Past Family History Mother Additional Family Medical History / Comment(s): anuerysm Father Family Medical History: CVA/TIA, Diabetes Mellitus, Myocardial Infarction ([place]) Sister(s) Additional Family Medical History / Comment(s): one sister had "hole in her heart" and a kidney transplant and another sister had ms. General Exam Limitations: no limitations General appearance: alert, in no apparent distress, obese, other (Left [id number] medication) Head exam: Present: atraumatic, normocephalic, normal inspection Eye exam: Present: normal appearance, PERRL, EOMI. Absent: scleral icterus, conjunctival injection, periorbital swelling Neck exam: Present: normal inspection Respiratory exam: Present: normal lung sounds bilaterally. Absent: respiratory distress, wheezes, rales, rhonchi, stridor Cardiovascular Exam: Present: regular rate, normal rhythm, normal heart sounds. Absent: systolic murmur, diastolic murmur, rubs, gallop, clicks Extremities exam: Present: normal inspection, full ROM, normal capillary refill. Absent: tenderness, pedal edema, joint swelling, calf tenderness Neurological exam: Present: alert, oriented X3 Psychiatric exam: Present: normal affect, normal mood Skin exam: Present: warm, dry, intact, normal color. Absent: rash Course Vital Signs 05/30/21 05/30/21 05/30/21 19:02 20:02 21:11 Temperature 98.9 F Pulse Rate 84 79 74 Respiratory 18 18 16 Rate Blood Pressure 129/54 146/71 143/61 O2 Sat by Pulse 96 94 L 96 Oximetry Medical Decision Making - Medical Decision Making 60-year-old female with reportedly low hemoglobin at her rehab facility. Labs ordered. Labs: Hemoglobin 7.9 improved from several days ago at 7.6 hematocrit increased to 26.2, kidney function similar to baseline, rest of labs within normal limits. Case discussed with Dr. Almanza, patient can discharge back to facility. - Lab Data Result diagrams: 05/30/21 19:50 05/30/21 19:50 Lab Results 05/30/21 05/30/21 05/30/21 Range/Units 19:50 19:50 19:50 WBC 6.4 (3.8-10.6) k/uL RBC 3.10 L (3.80-5.40) m/uL Hgb 7.9 L (11.4-16.0) gm/dL Hct 26.2 L (34.0-46.0) % MCV 84.7 (80.0-100.0) fL MCH 25.4 (25.0-35.0) pg MCHC 30.0 L (31.0-37.0) g/dL RDW 17.9 H (11.5-15.5) % Plt Count 289 (150-450) k/uL MPV 7.7 Neutrophils % 81 % Lymphocytes % 10 % Monocytes % 4 % Eosinophils % 4 % Basophils % 1 % Neutrophils # 5.1 (1.3-7.7) k/uL Lymphocytes # 0.6 L (1.0-4.8) k/uL Monocytes # 0.3 (0-1.0) k/uL Eosinophils # 0.2 (0-0.7) k/uL Basophils # 0.0 (0-0.2) k/uL Hypochromasia Marked Anisocytosis Slight PT 11.6 (9.0-12.0) sec INR 1.1 (<1.2) APTT 23.2 (22.0-30.0) sec Sodium (137-145) mmol/L Potassium (3.5-5.1) mmol/L Chloride (98-107) mmol/L Carbon Dioxide (22-30) mmol/L Anion Gap mmol/L BUN (7-17) mg/dL Creatinine (0.52-1.04) mg/dL Est GFR (CKD-EPI)AfAm (>60 ml/min/1.73 sqM) Est GFR (CKD-EPI)NonAf (>60 ml/min/1.73 sqM) Glucose (74-99) mg/dL Plasma Lactic Acid Sylvester (0.7-2.0) mmol/L Calcium (8.4-10.2) mg/dL Magnesium (1.6-2.3) mg/dL Total Bilirubin (0.2-1.3) mg/dL AST (14-36) U/L ALT (4-34) U/L Alkaline Phosphatase (38-126) U/L Troponin I (0.000-0.034) ng/mL Total Protein (6.3-8.2) g/dL Albumin (3.5-5.0) g/dL Stool Occult Blood Negative (Negative) 05/30/21 05/30/21 05/30/21 Range/Units 19:50 19:50 19:50 WBC (3.8-10.6) k/uL RBC (3.80-5.40) m/uL Hgb (11.4-16.0) gm/dL Hct (34.0-46.0) % MCV (80.0-100.0) fL MCH (25.0-35.0) pg MCHC (31.0-37.0) g/dL RDW (11.5-15.5) % Plt Count (150-450) k/uL MPV Neutrophils % % Lymphocytes % % Monocytes % % Eosinophils % % Basophils % % Neutrophils # (1.3-7.7) k/uL Lymphocytes # (1.0-4.8) k/uL Monocytes # (0-1.0) k/uL Eosinophils # (0-0.7) k/uL Basophils # (0-0.2) k/uL Hypochromasia Anisocytosis PT (9.0-12.0) sec INR (<1.2) APTT (22.0-30.0) sec Sodium 138 (137-145) mmol/L Potassium 4.5 (3.5-5.1) mmol/L Chloride 110 H (98-107) mmol/L Carbon Dioxide 24 (22-30) mmol/L Anion Gap 4 mmol/L BUN 21 H (7-17) mg/dL Creatinine 1.17 H (0.52-1.04) mg/dL Est GFR (CKD-EPI)AfAm 58 (>60 ml/min/1.73 sqM) Est GFR (CKD-EPI)NonAf 50 (>60 ml/min/1.73 sqM) Glucose 130 H (74-99) mg/dL Plasma Lactic Acid Sylvester 1.2 (0.7-2.0) mmol/L Calcium 8.0 L (8.4-10.2) mg/dL Magnesium 1.9 (1.6-2.3) mg/dL Total Bilirubin 0.2 (0.2-1.3) mg/dL AST 14 (14-36) U/L ALT 6 (4-34) U/L Alkaline Phosphatase 115 (38-126) U/L Troponin I <0.012 (0.000-0.034) ng/mL Total Protein 5.5 L (6.3-8.2) g/dL Albumin 2.5 L (3.5-5.0) g/dL Stool Occult Blood (Negative) Disposition Clinical Impression: Chronic anemia Disposition: HOME SELF-CARE Condition: Stable Instructions (If sedation given, give patient instructions): Anemia (ED) Additional Instructions: Please return to the Emergency Department if symptoms worsen or any other concerns. Follow up with primary care 1-2 days. Is patient prescribed a controlled substance at d/c from ED?: No Referrals: Sumit Jimenez MD [Primary Care Provider] - 1-2 days Time of Disposition: 21:58
[2021-05-30 22:32] VITALS: RESP 18
[2021-05-30 23:29] VITALS: BP 125/61; PULSE 80; TEMP 97.6
== END 2021-05-30 23:20 | disposition home or self-care (01) ==
LOC: EC 18:58
DX: D64.9 Anemia, unspecified (principal); I13.0 Hypertensive heart and chronic kidney disease with heart failure and stage 1 through stage 4 chronic kidney disease, or unspecified chronic kidney disease; E11.22 Type 2 diabetes mellitus with diabetic chronic kidney disease; I50.9 Heart failure, unspecified; N18.30 Chronic kidney disease, stage 3 unspecified; I25.10 Atherosclerotic heart disease of native coronary artery without angina pectoris; I25.2 Old myocardial infarction; J44.9 Chronic obstructive pulmonary disease, unspecified; K21.9 Gastro-esophageal reflux disease without esophagitis; E78.5 Hyperlipidemia, unspecified; M19.90 Unspecified osteoarthritis, unspecified site; Z79.02 Long term (current) use of antithrombotics/antiplatelets; Z91.040 Latex allergy status; Z87.891 Personal history of nicotine dependence; Z89.612 Acquired absence of left leg above knee; Z95.1 Presence of aortocoronary bypass graft
CPT/HCPCS: 99284; 96374; 36415; 80053; 83605; 83735; 84484; 85025; 85610; 85730; 82272; C9113

== ENCOUNTER 2021-06-17 02:33 | Inpatient (IN) | payer MEDICARE, OTHER ==
[2021-06-17] MEDS ORDERED: ALBUTEROL HFA INHALER INHALATION STA (02:44)
[2021-06-17] MEDS ORDERED: ACETAMINOPHEN TAB 500 MG TAB PO STA (02:44)
[2021-06-17] MEDS ORDERED: SODIUM CHLORIDE 0.9% 500 ML 500 ML IV STA ×2 (02:44→04:19)
[2021-06-17] MEDS ORDERED: DEXAMETHASONE SOD PHOSPHATE 10 MG/ML 1 ML VIAL IV STA (02:44)
[2021-06-17] MEDS ORDERED: SODIUM CHLORIDE 0.9% 1,000 ML IV STA ×2 (02:44→06:00)
[2021-06-17] MEDS ORDERED: KETOROLAC 15 MG/ML 1 ML VIAL IVP STA (02:44)
[2021-06-17] MEDS ORDERED: ALBUTEROL HFA INHALER INHALATION PRN (02:44)
--- NOTE | 2021-06-17 02:45 | ED ---
SOB HPI - General Chief Complaint: Shortness of Breath Stated Complaint: SOB, Covid+ Time Seen by Provider: 06/17/21 02:43 Source: patient, EMS, RN notes reviewed, old records reviewed Mode of arrival: EMS Limitations: no limitations - History of Present Illness Initial Comments: This is a 60-year-old female to the emergency room today. Patient has known history of coronavirus. Patient is cough and congestion. Patient has had decreasing oxygen saturations at metal lodged and sent to ER for evaluation. Patient has no chest pain does have fever. Patient states she's having difficulty catching her breath feels significantly short of breath. MD Complaint: shortness of breath, cough, pain with inspiration, "asthma attack ", anxiety -: hour(s) Severity: severe Severity scale (1-10): 10 Quality: dull Consistency: constant Improves With: nothing Worsens With: exertion Known History Of: COPD, congestive heart failure Context: recent URI, recent illness Associated Symptoms: chest pain, pain with inspiration, cough, sputum production, palpitations, nausea/vomiting Treatments Prior to Arrival: oxygen - Related Data Home Medications Medication Instructions Recorded Confirmed Clopidogrel [Plavix] 75 mg PO DAILY@0800 08/17/18 06/17/21 Loperamide [Imodium] 2 mg PO Q6H PRN 05/07/21 06/17/21 Pantoprazole Sodium 40 mg PO DAILY@0600 05/07/21 06/17/21 traMADol-ACETAMINOP 37.5-325MG 1 tab PO Q8H PRN 05/17/21 06/17/21 [Ultracet] Ascorbic Acid [Vitamin C] 500 mg PO TID@0800,1200,1800 06/17/21 06/17/21 Calcium Carbonate/Vitamin D3 1 tab PO DAILY@0800 06/17/21 06/17/21 [Calcium 600 mg-Vit D3 5 mcg (200 unit)] Multivitamin with Iron 1 tab PO DAILY 06/17/21 06/17/21 [Multivitamins with Iron] Ondansetron HCl [Zofran] 4 mg PO Q6H PRN 06/17/21 06/17/21 Sodium Bicarbonate Tab 650 mg PO TID@0000,0800,1600 06/17/21 06/17/21 carvediloL [Coreg] 3.125 mg PO BID 06/17/21 06/17/21 Previous Rx's Medication Instructions Recorded Gabapentin [Neurontin] 300 mg PO HS #3 capsule 10/21/20 Allergies Allergy/AdvReac Type Severity Reaction Status Date / Time vitamin E (d-alpha Allergy Unknown Rash/Hives Verified 06/17/21 07:04 tocopherol) collagenase Clostridium Allergy Rash/Hives Verified 06/17/21 07:04 histolyticu [From Santyl] latex Allergy Rash/Hives Verified 06/17/21 07:04 pollen extracts AdvReac Mild Itching Verified 06/17/21 07:04 dial soap Allergy Unknown Rash/Hives Uncoded 06/17/21 07:04 Review of Systems ROS Statement: Those systems with pertinent positive or pertinent negative responses have been documented in the HPI. ROS Other: All systems not noted in ROS Statement are negative. Past Medical History Past Medical History: Coronary Artery Disease (CAD), Heart Failure, COPD, Diabetes Mellitus, GERD/Reflux, Hyperlipidemia, Hypertension, Myocardial Infarction ([place]), Osteoarthritis (OA), Renal Disease, Rheumatoid Arthritis (RA), Skin Disorder, Vascular Disorder Additional Past Medical History / Comment(s): venous stasis ulcers, hx cellu litis, 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 Last Myocardial Infarction Date:: 2011 History of Any Multi-Drug Resistant Organisms: MRSA Date of last positivie culture/infection: 05/17/21 ESBL / 03/20/19 MRSA MDRO Source:: ESBL URINE/ MRSA BLOOD Past Surgical History: Section Additional Past Surgical History / Comment(s): 2011 CABG 2 vessel, D&C, C- sections x 2, bilateral lower leg/heels debrided., left above the knee amputation (Oct 2020). Past Anesthesia/Blood Transfusion Reactions: Previous Problems w/ Anesthesia Additional Past Anesthesia/Blood Transfusion Reaction / Comment(s): states fluctuation in heart rate., clausterphobia Past Psychological History: No Psychological Hx Reported Smoking Status: Former smoker Past Alcohol Use History: None Reported Past Drug Use History: None Reported - Past Family History Mother Additional Family Medical History / Comment(s): anuerysm Father Family Medical History: CVA/TIA, Diabetes Mellitus, Myocardial Infarction ([place]) Sister(s) Additional Family Medical History / Comment(s): one sister had "hole in her heart" and a kidney transplant and another sister had ms. General Exam Limitations: no limitations General appearance: alert, anxious, in distress Head exam: Present: atraumatic, normocephalic, normal inspection Eye exam: Present: normal appearance, PERRL, EOMI. Absent: scleral icterus, conjunctival injection, periorbital swelling ENT exam: Present: normal exam, mucous membranes moist Neck exam: Present: normal inspection. Absent: tenderness, meningismus, lymphadenopathy Respiratory exam: Present: respiratory distress, accessory muscle use, decreased breath sounds, prolonged expiratory. Absent: wheezes, rales, rhonchi, stridor Cardiovascular Exam: Present: regular rate, normal rhythm, normal heart sounds. Absent: systolic murmur, diastolic murmur, rubs, gallop, clicks GI/Abdominal exam: Present: soft, normal bowel sounds. Absent: distended, tenderness, guarding, rebound, rigid Extremities exam: Present: normal inspection, full ROM, normal capillary refill. Absent: tenderness, pedal edema, joint swelling, calf tenderness Back exam: Present: normal inspection Neurological exam: Present: alert, oriented X3, CN II-XII intact Psychiatric exam: Present: normal affect, normal mood Skin exam: Present: warm, dry, intact, normal color. Absent: rash Course Vital Signs 06/17/21 06/17/21 06/17/21 02:41 03:00 03:44 Temperature 98.3 F Pulse Rate 81 87 Respiratory 16 28 H 18 Rate Blood Pressure 106/51 92/40 O2 Sat by Pulse 92 L 93 L Oximetry 06/17/21 06/17/21 06:00 07:16 Temperature Pulse Rate 83 78 Respiratory 18 18 Rate Blood Pressure 109/50 107/55 O2 Sat by Pulse 93 L 93 L Oximetry - Reevaluation(s) Reevaluation #1: 06/17/21 Medical record is reviewed Patient symptoms are without improvement here in the ER Patient is informed results and questions answered Patient is in significant respiratory distress Medical Decision Making - Medical Decision Making 60 female to the ER for evaluation. Patient Dese for evaluation regards to positive coronavirus with hypoxia. We will admit this patient for coronavirus and supportive care - Lab Data Result diagrams: 06/23/21 07:34 06/26/21 06:18 Lab Results 06/17/21 06/17/21 06/17/21 Range/Units 03:12 03:12 03:12 WBC 3.5 L (3.8-10.6) k/uL RBC 3.19 L (3.80-5.40) m/uL Hgb 8.4 L (11.4-16.0) gm/dL Hct 27.5 L (34.0-46.0) % MCV 86.2 (80.0-100.0) fL MCH 26.3 (25.0-35.0) pg MCHC 30.5 L (31.0-37.0) g/dL RDW 18.7 H (11.5-15.5) % Plt Count 118 L D (150-450) k/uL MPV 9.0 Neutrophils % 81 % Lymphocytes % 14 % Monocytes % 2 % Eosinophils % 1 % Basophils % 0 % Neutrophils # 2.8 (1.3-7.7) k/uL Lymphocytes # 0.5 L (1.0-4.8) k/uL Monocytes # 0.1 (0-1.0) k/uL Eosinophils # 0.0 (0-0.7) k/uL Basophils # 0.0 (0-0.2) k/uL Hypochromasia Marked Anisocytosis Slight PT 11.3 (9.0-12.0) sec INR 1.1 (<1.2) APTT 25.9 (22.0-30.0) sec Sodium 135 L (137-145) mmol/L Potassium 4.5 (3.5-5.1) mmol/L Chloride 106 (98-107) mmol/L Carbon Dioxide 22 (22-30) mmol/L Anion Gap 7 mmol/L BUN 51 H (7-17) mg/dL Creatinine 2.55 H (0.52-1.04) mg/dL Est GFR (CKD-EPI)AfAm 23 (>60 ml/min/1.73 sqM) Est GFR (CKD-EPI)NonAf 20 (>60 ml/min/1.73 sqM) Glucose 115 H (74-99) mg/dL Plasma Lactic Acid Sylvester (0.7-2.0) mmol/L Calcium 6.9 L (8.4-10.2) mg/dL Magnesium 1.8 (1.6-2.3) mg/dL Total Bilirubin 0.2 (0.2-1.3) mg/dL AST 51 H (14-36) U/L ALT 6 (4-34) U/L Alkaline Phosphatase 68 (38-126) U/L Lactate Dehydrogenase 1892 H (313-618) U/L Troponin I (0.000-0.034) ng/mL C-Reactive Protein 5.7 H (<1.0) mg/dL NT-Pro-B Natriuret Pep pg/mL Total Protein 5.0 L (6.3-8.2) g/dL Albumin 2.1 L (3.5-5.0) g/dL 06/17/21 06/17/21 06/17/21 Range/Units 03:12 03:12 03:12 WBC (3.8-10.6) k/uL RBC (3.80-5.40) m/uL Hgb (11.4-16.0) gm/dL Hct (34.0-46.0) % MCV (80.0-100.0) fL MCH (25.0-35.0) pg MCHC (31.0-37.0) g/dL RDW (11.5-15.5) % Plt Count (150-450) k/uL MPV Neutrophils % % Lymphocytes % % Monocytes % % Eosinophils % % Basophils % % Neutrophils # (1.3-7.7) k/uL Lymphocytes # (1.0-4.8) k/uL Monocytes # (0-1.0) k/uL Eosinophils # (0-0.7) k/uL Basophils # (0-0.2) k/uL Hypochromasia Anisocytosis PT (9.0-12.0) sec INR (<1.2) APTT (22.0-30.0) sec Sodium (137-145) mmol/L Potassium (3.5-5.1) mmol/L Chloride (98-107) mmol/L Carbon Dioxide (22-30) mmol/L Anion Gap mmol/L BUN (7-17) mg/dL Creatinine (0.52-1.04) mg/dL Est GFR (CKD-EPI)AfAm (>60 ml/min/1.73 sqM) Est GFR (CKD-EPI)NonAf (>60 ml/min/1.73 sqM) Glucose (74-99) mg/dL Plasma Lactic Acid Sylvester 0.7 (0.7-2.0) mmol/L Calcium (8.4-10.2) mg/dL Magnesium (1.6-2.3) mg/dL Total Bilirubin (0.2-1.3) mg/dL AST (14-36) U/L ALT (4-34) U/L Alkaline Phosphatase (38-126) U/L Lactate Dehydrogenase (313-618) U/L Troponin I 0.032 (0.000-0.034) ng/mL C-Reactive Protein (<1.0) mg/dL NT-Pro-B Natriuret Pep 46751 pg/mL Total Protein (6.3-8.2) g/dL Albumin (3.5-5.0) g/dL - EKG Data -: EKG Interpreted by Me (EKG is sinus rhythm 81 WV 194 QRS 92 QTC 436) - Radiology Data Radiology results: report reviewed (Chest x-rays positive for bilateral pneumonia), image reviewed Critical Care Time Critical Care Time: Yes Total Critical Care Time: 31 Disposition Clinical Impression: COPD (chronic obstructive pulmonary disease), Heart failure, Chest pain, Failure of outpatient treatment, Coronavirus infection, Hypoxia Disposition: ADMITTED IP TO THIS HOSP Condition: Serious Is patient prescribed a controlled substance at d/c from ED?: No
[2021-06-17] MEDS ORDERED: LORazepam 2 MG/ML INJ IV STA (03:41)
[2021-06-17 03:53] LABS: Albumin 2.1 g/dL (3.5-5.0); C Reactive Protein 5.7 mg/dL (<1.0); Calcium 6.9 mg/dL (8.4-10.2); Magnesium 1.8 mg/dL (1.6-2.3); Potassium 4.5 mmol/L (3.5-5.1); Total Bilirubin 0.2 mg/dL (0.2-1.3)
[2021-06-17 04:13] LABS: INR 1.1 (<1.2); Partial Thromboplastin Time 25.9 sec (22.0-30.0); Prothrombin Time 11.3 sec (9.0-12.0)
[2021-06-17 04:15] LABS: Anisocytosis Slight; Basophils % (A) 0 %; Eosinophils % (A) 1 %; HCT 27.5 % (34.0-46.0); HGB 8.4 gm/dL (11.4-16.0); Hypochromasia Marked; Lymphocytes # (A) 0.5 k/uL (1.0-4.8); Lymphocytes % (A) 14 %; MCH 26.3 pg (25.0-35.0); MCHC 30.5 g/dL (31.0-37.0); MCV 86.2 fL (80.0-100.0); Monocytes # (A) 0.1 k/uL (0-1.0); Monocytes % (A) 2 %; Neutrophils # (A) 2.8 k/uL (1.3-7.7); Neutrophils % (A) 81 %; RBC 3.19 m/uL (3.80-5.40); RDW 18.7 % (11.5-15.5); WBC 3.5 k/uL (3.8-10.6)
[2021-06-17] MEDS: HYDROmorphone 1 MG/ML 1 ML SYRINGE IVP STA ×2 (04:15→06:09)
[2021-06-17 04:17] LABS: Platelet Count 118 k/uL (150-450)
[2021-06-17] MEDS ORDERED: methylPREDNISolone SOD SUCCI 125 MG/2 ML VIAL IV SCH (06:00)
[2021-06-17] MEDS ORDERED: NALOXONE 0.4 MG/ML 1 ML VIAL IV PRN (06:04)
[2021-06-17] MEDS ORDERED: HYDROmorphone 1 MG/ML 1 ML SYRINGE IVP PRN (06:04)
[2021-06-17] MEDS: SODIUM CHLORIDE 0.9% 1,000 ML IV SCH ×3 (06:30→17:17)
[2021-06-17] MEDS: TIOTROPIUM 2.5 MCG INHALER INHALATION SCH (08:34)
[2021-06-17] MEDS: ALBUTEROL HFA INHALER INHALATION SCH ×4 (08:34→19:59)
[2021-06-17] MEDS ORDERED: PANTOPRAZOLE 40 MG/10 ML VIAL IV SCH (09:00)
[2021-06-17] MEDS ORDERED: LOPERAMIDE 2 MG CAP PO PRN (09:06)
[2021-06-17] MEDS: CLOPIDOGREL 75 MG TAB PO SCH (10:01)
[2021-06-17 10:06] LABS: Glucose,Whole Blood 191 mg/dL (75-99)
[2021-06-17 11:13] LABS: Glucose,Whole Blood 208 mg/dL (75-99)
[2021-06-17] MEDS: INSULIN ASPART (NovoLOG) 100 UNIT/ML VIAL SQ SCH ×3 (11:47→20:40)
[2021-06-17] MEDS: ASCORBIC ACID 500 MG TAB PO SCH ×2 (11:47→17:16)
--- NOTE | 2021-06-17 12:06 | XR ---
EXAMINATION TYPE: XR chest 1V portable DATE OF EXAM: 06/17/2021 COMPARISON: 05/17/2021 HISTORY: Shortness of breath TECHNIQUE: Single frontal view of the chest is obtained. FINDINGS: Diffuse bilateral infiltrates. Postoperative changes. No pneumothorax. Small right pleural effusion and tiny left effusion. Heart size enlarged. Underlying COPD suspected. IMPRESSION: Diffuse bilateral infiltrate and small effusion correlate for diffuse pneumonia, ARDS or pulmonary edema.
[2021-06-17 15:38] LABS: Appearance,Urine Cloudy (Clear); Bacteria,Urine Few /hpf; Bilirubin,Urine Negative (Negative); Blood,Urine Large (Negative); Budding Yeast,Urine Moderate /hpf; Color,Urine Yellow; Glucose,Urine (UA) Negative (Negative); Ketones,Urine Negative (Negative); Leukocyte Esterase,Urine Large (Negative); Nitrite,Urine Negative (Negative); Protein,Urine 1+ (Negative); RBC,Urine >182 /hpf (0-5); Specific Gravity,Urine 1.015 (1.001-1.035); Squamous Epithelial Cell,Urine 1 /hpf (0-4); Urobilinogen,Urine <2.0 mg/dL (<2.0); WBC,Urine 128 /hpf (0-5)
--- NOTE | 2021-06-17 16:37 | P.CNPUL ---
History of Present Illness Consult date: 06/17/21 Requesting physician: Bobby Quinones Reason for consult: dyspnea, hypoxemia, pneumonia, abnormal CXR/CT Chief complaint: COVID-19 pneumonia History of present illness: This is a 60-year-old female patient, undergoing rehab at the [facility], following her recent hospitalization for ESBL E. coli urinary tract infection, she was discharged to [facility] with the right upper arm PICC line in place in 12 days of Invanz. Patient had hydroureter on the right side, patient underwent right ureteral stent placement on 05/25/2021. Patient Also had a recent amputation of the right big toe by Dr. Scruggs on 05/21/2021. Patient has multiple medical problems including diabetes mellitus type 2, chronic kidney disease stage III, coronary artery disease with bypass, diabetic peripheral neuropathy, chronic low back pain, impaired gait, and patient uses a motorized wheelchair at baseline, most recently she is bedbound, valvular heart disease, severe secondary pulmonary hypertension, mitral and tricuspid regurgitation. Patient was also a former smoker. She is not oxygen dependent at baseline. On 06/17/2021 when she was brought into the emergency department for evaluation of altered mentation, and hypoxia. She tested positive for COVID-19 at the [facility] on 06/13/2021. She is very lethargic but she is able to answer some questions, she states she has had the cough and fever since last , 05/12/2021. Was no chest x-ray obtained in the emergency department. Patient was placed on 6 L of oxygen and her pulse ox was only around 92%. He was afebrile while in the emergency department. Her admission blood work showed a white blood cell, 3.5, hemoglobin was 8.4, platelet count was 118, d-dimer came back at 1.35, sodium was 135, potassium is 4.5, there was evidence of acute on chronic kidney disease, with BUN of 51 and creatinine of 2.55, and GFR was 23, LDH was 1892, troponins were 0.032, 0.0-8, and 0.0-4, proBNP was elevated at 26,300; urinalysis showed evidence of infected urine. In the ER Patient was given IV fluid boluses, and she was placed on 0.9 normal saline at a rate of 130 ML per hour. He remains on 6 L of oxygen her pulse ox is 99%, blood pressure stable, she is afebrile, lung sounds are positive for coarse crackles throughout. Addition patient has open wound on the back of her right calf for which she polyps at the wound care clinic, the right great big toe amputation site is clean dry and intact, sutures are intact. She has a superficial macerated area on her coccyx. Blood cultures are pending at this time. Review of Systems All systems: negative Constitutional: Denies chills, Denies fever Eyes: denies blurred vision, denies pain Ears, nose, mouth and throat: Denies headache, Denies sore throat Cardiovascular: Denies chest pain, Denies shortness of breath Respiratory: Reports dyspnea, Reports respiratory infections, Denies cough Gastrointestinal: Denies abdominal pain, Denies diarrhea, Denies nausea, Denies vomiting Genitourinary: Denies dysuria, Denies hematuria Musculoskeletal: Denies myalgias Integumentary: Denies pruritus, Denies rash Neurological: Denies numbness, Denies weakness Psychiatric: Denies anxiety, Denies depression Endocrine: Denies fatigue, Denies weight change Past Medical History Past Medical History: Coronary Artery Disease (CAD), Heart Failure, COPD, Diabetes Mellitus, GERD/Reflux, Hyperlipidemia, Hypertension, Myocardial Infarction ([place]), Osteoarthritis (OA), Renal Disease, Rheumatoid Arthritis (RA), Skin Disorder, Vascular Disorder Additional Past Medical History / Comment(s): venous stasis ulcers, hx cellulitis, 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 Last Myocardial Infarction Date:: 2011 History of Any Multi-Drug Resistant Organisms: MRSA Date of last positivie culture/infection: 05/17/21 ESBL / 03/20/19 MRSA MDRO Source:: ESBL URINE/ MRSA BLOOD Past Surgical History: Section Additional Past Surgical History / Comment(s): 2011 CABG 2 vessel, D&C, C-sec tions x 2, bilateral lower leg/heels debrided., left above the knee amputation (Oct 2020). Past Anesthesia/Blood Transfusion Reactions: Previous Problems w/ Anesthesia Additional Past Anesthesia/Blood Transfusion Reaction / Comment(s): states fluctuation in heart rate., clausterphobia Past Psychological History: No Psychological Hx Reported Additional Psychological History / Comment(s): LIVES ALONE IN APARTMENT, STATES [employer] N[employer]SE AND HAS AIDE ALSO., company. Denies tobacco smoking or alcohol use. Medically disabled. No experience or international travel. No animals in the home. She has a nebulizer and a glucometer. She has VNA aide 3 days a week for cleaning/showering. Comes to wound center for leg wounds. Smoking Status: Former smoker Past Alcohol Use History: None Reported Additional Past Alcohol Use History / Comment(s): stopped smoking in 2011. HX OF 3PPD., In the past used to drink heavily but none since 1990 Past Drug Use History: None Reported - Past Family History Mother Additional Family Medical History / Comment(s): anuerysm Father Family Medical History: CVA/TIA, Diabetes Mellitus, Myocardial Infarction ([place]) Sister(s) Additional Family Medical History / Comment(s): one sister had "hole in her heart" and a kidney transplant and another sister had ms. Medications and Allergies Home Medications Medication Instructions Recorded Confirmed Type Clopidogrel [Plavix] 75 mg PO DAILY@0800 08/17/18 06/17/21 History Gabapentin [Neurontin] 300 mg PO HS #3 capsule 10/21/20 06/17/21 Rx Loperamide [Imodium] 2 mg PO Q6H PRN 05/07/21 06/17/21 History Pantoprazole Sodium 40 mg PO DAILY@0600 05/07/21 06/17/21 History traMADol-ACETAMINOP 37.5-325MG 1 tab PO Q8H PRN 05/17/21 06/17/21 History [Ultracet] Ascorbic Acid [Vitamin C] 500 mg PO TID@0800,1200,1800 06/17/21 06/17/21 History Calcium Carbonate/Vitamin D3 1 tab PO DAILY@0800 06/17/21 06/17/21 History [Calcium 600 mg-Vit D3 5 mcg (200 unit)] Multivitamin with Iron 1 tab PO DAILY 06/17/21 06/17/21 History [Multivitamins with Iron] Ondansetron HCl [Zofran] 4 mg PO Q6H PRN 06/17/21 06/17/21 History Sodium Bicarbonate Tab 650 mg PO TID@0000,0800,1600 06/17/21 06/17/21 History carvediloL [Coreg] 3.125 mg PO BID 06/17/21 06/17/21 History Allergies Allergy/AdvReac Type Severity Reaction Status Date / Time vitamin E (d-alpha Allergy Unknown Rash/Hives Verified 06/17/21 07:04 tocopherol) collagenase Clostridium Allergy Rash/Hives Verified 06/17/21 07:04 histolyticu [From Santyl] latex Allergy Rash/Hives Verified 06/17/21 07:04 pollen extracts AdvReac Mild Itching Verified 06/17/21 07:04 dial soap Allergy Unknown Rash/Hives Uncoded 06/17/21 07:04 Physical Exam Vitals: Vital Signs Temp Pulse Pulse Resp BP BP Pulse Ox 06/17/21 12:00 97.9 F 71 20 106/52 99 06/17/21 08:25 97.7 F 94 21 117/74 94 L 06/17/21 07:16 78 18 107/55 93 L 06/17/21 06:00 83 18 109/50 93 L 06/17/21 03:44 87 18 92/40 93 L 06/17/21 03:00 28 H 06/17/21 02:41 98.3 F 81 16 106/51 92 L Intake and Output 06/17/21 06/17/21 06/17/21 06:59 14:59 22:59 Intake Total 180 Output Total 500 Balance -320 Intake: Oral 180 Output: Urine 500 Straight 500 Other: Weight 90.718 kg 90.718 kg GENERAL EXAM: Large, but arousable, 60-year-old white female, on 6 L of oxygen, breathing fairly comfortably, pulse ox is 99% comfortable in no apparent distress. HEAD: Normocephalic/atraumatic. EYES: Normal reaction of pupils, equal size. Conjunctiva pink, sclera white. NOSE: Clear with pink turbinates. THROAT: No erythema or exudates. NECK: No masses, no JVD, no thyroid enlargement, no adenopathy. CHEST: No chest wall deformity. Symmetrical expansion. LUNGS: Equal air entry with coarse crackles throughout CVS: Regular rate and rhythm, normal S1 and S2, no gallops, no murmurs, no rubs ABDOMEN: Soft, nontender. No hepatosplenomegaly, normal bowel sounds, no guarding or rigidity. EXTREMITIES: No clubbing, no edema, no cyanosis, 2+ pulses and upper and lower extremities. Left [id number] amputation, right great big toe amputation site clean dry and intact, sutures clean dry and intact, reich area on the back of her right calf, bleeding, does not appear to be infected, surrounding area is extremely flaky, and dry MUSCULOSKELETAL: Muscle strength and tone normal. SPINE: No scoliosis or deformity SKIN: No rashes CENTRAL NERVOUS SYSTEM: Alert and oriented -2. No focal deficits, tone is normal in all 4 extremities. PSYCHIATRIC: Alert and oriented -2. Appropriate affect. Intact judgment and insight. Results - Laboratory Findings CBC and BMP: 06/17/21 03:12 06/17/21 03:12 PT/INR, D-dimer PT 11.3 sec (9.0-12.0) 06/17/21 03:12 INR 1.1 (<1.2) 06/17/21 03:12 D-Dimer 1.35 mg/L FEU (<0.60) H 06/17/21 12:07 Abnormal lab findings: Abnormal Labs 06/17/21 06/17/21 06/17/21 03:12 03:12 10:04 WBC 3.5 L RBC 3.19 L Hgb 8.4 L Hct 27.5 L MCHC 30.5 L RDW 18.7 H Plt Count 118 L D Lymphocytes # 0.5 L D-Dimer Sodium 135 L BUN 51 H Creatinine 2.55 H Glucose 115 H POC Glucose (mg/dL) 191 H Calcium 6.9 L AST 51 H Lactate Dehydrogenase 1892 H C-Reactive Protein 5.7 H Total Protein 5.0 L Albumin 2.1 L Urine Appearance Urine Protein Urine Blood Ur Leukocyte Esterase Urine RBC Urine WBC Urine Bacteria Urine Yeast (Budding) 06/17/21 06/17/21 06/17/21 11:12 12:07 14:35 WBC RBC Hgb Hct MCHC RDW Plt Count Lymphocytes # D-Dimer 1.35 H Sodium BUN Creatinine Glucose POC Glucose (mg/dL) 208 H Calcium AST Lactate Dehydrogenase C-Reactive Protein Total Protein Albumin Urine Appearance Cloudy H Urine Protein 1+ H Urine Blood Large H Ur Leukocyte Esterase Large H Urine RBC >182 H Urine WBC 128 H Urine Bacteria Few H Urine Yeast (Budding) Moderate H - Diagnostic Findings Chest x-ray: report reviewed, image reviewed Additional studies: EKG reviewed Assessment and Plan Plan: Assessment: #1. Acute hypoxic respiratory failure related to acute COVID-19 pneumonia, and there is a possibility of acute exacerbation of CHF with systolic dysfunction. Patient tested positive for COVID-19 on 06/13/2021 #2. Acute urinary tract infection, rule out possibility of an ESBL infection #3. Recent hospitalization for ESBL E. coli urinary tract infection #4. Recent right great big toe amputation for nonhealing wound on 05/21/2021 #5. Recent history of right hydronephrosis with ureteral stent placement on 05/25/2021 #6. Acute on chronic kidney disease #7. Valvular heart disease, with moderate MR, and moderate to severe tricuspid regurgitation, and severe pulmonary hypertension with right-sided pressure of 88.5 mmHg #8. Reported history of COPD, not oxygen dependent at baseline #9. Former smoker #10. Diabetes mellitus, with diabetic neuropathy #11. Chronic kidney disease stage III at baseline #12. Peripheral vascular disease with previous history of left [id number] amputation #13. Nonhealing wound on the right lower leg posterior messer area, patient follows at the wound care center #14. Urinary artery disease with previous history of bypass grafting #15. Previous history of myocardial infarction #16. Rheumatoid arthritis Plan: Chest x-ray has been reviewed We'll start the patient on IV Decadron 6 mg daily Possibility of fluid overload or pulmonary edema is also considered We'll contact IV fluids to 50 ML per hour Urinalysis has been noted, urine culture will be sent, blood cultures are pending Antibiotics per ID service recommendations Prophylactic anticoagulation We'll continue to follow and long-term markers and d-dimer Patient has complex medical history Overall prognosis is guarded We'll continue to follow and make further recommendations I performed a history & physical examination of the patient and discussed their management with my nurse practitioner, Kaya Sorensen. I reviewed the nurse practitioner's note and agree with the documented findings and plan of care. Lung sounds are positive for diminished breath sounds throughout the lung zambrano. The findings and the impression was discussed with the patient. I attest to the documentation by the nurse practitioner. Time with Patient: Greater than 30
--- NOTE | 2021-06-17 16:54 | P.HPIM ---
History of Present Illness H&P Date: 06/17/21 Chief Complaint: Hypoxemia History of presenting complaint: This is a pleasant 60-year-old patient, visiting physicians Dr. Garcia. Chronic stable medical conditions include (above-knee amputation, chronic wound on the right lower extremity being followed by Dr. Scruggs from vascular, at the wound care center by Lauren, and also has home care. Chronic kidney disease stage III, diabetes mellitus type 2, hyperlipidemia, coronary artery disease with bypass, diabetic peripheral neuropathy, lower back pain from arthritis, uses a motorized wheelchair at baseline, severe secondary pulmonary hypertension, mitral and tricuspid regurgitation. May 10 discharged from the hospital , following debridement of the right lower extremity. Suggestion was made for amputation of the toe. Patient was seen at the wound care center on this . discharged from the hospital May 28. Patient had a acute UTI with right ureter hydronephrosis with positive blood cultures E. coli/ESBL. Underwent right big toe ray amputation by Dr. Scruggs. Also underwent stent placement to the right ureter on May [address] Van. Discharged on IV Invanz. Patient will now sent in from the F for becoming hypoxic. Pulse ox was in low 90s on 6 L. Patient's diet. Decreased oral intake. Shortness of breath. Some cough. Patient was positive for COVID on May 13. Because of increasing oxygen requirement patient was sent in. Patient rather tired. Patient did eat her breakfast this morning. Easily tired Review of systems: GEN.: Tired EYES: None HEENT: None NECK: None RESPIRATORY: Some shortness of breath CARDIOVASCULAR: None GASTROINTESTINAL: None GENITOURINARY: None MUSCULOSKELETAL: Right lower extremity foot dressing LYMPHATICS: None HEMATOLOGICAL: None PSYCHIATRY: None NEUROLOGICAL: None Past medical history to include: Left above-knee amputation, right big toe surgery amputation chronic kidney disease stage III, diabetes mellitus, hyperlipidemia, coronary artery disease with bypass, diabetic peripheral neuropathy, lower back pain from arthritis, G ERD venous stasis ulcers, peripheral neuropathy, Social history: At [facility] currently. Motorized wheelchair. Home care. She was drinking heavily of April 1991. Smoking up to 3 packs a day up to 2011. Family history: Diabetes, [place], and resume, stroke Physical examination: VITAL SIGNS: 97.7, 94, 21, 170-74, 94% on 6 L GENERAL: BMI 34.3, reclining in bed, tired, but arousable EYES: Pupils equal. Conjunctiva normal. HEENT: External appearance of nose and ears normal, oral cavity grossly normal. NECK: JVD not raised; masses not palpable. HEART: First and second heart sounds are normal; no edema. LUNGS: Respiratory rate increased decreased breath sounds. ABDOMEN: Soft, nontender, liver spleen not palpable, no masses palpable. PSYCH: Tired but he would answer simple questions NEUROLOGICAL: Cranial nerves grossly intact; no facial asymmetry, power and sensation grossly intact. EXTREMITIES: Left above-knee amputation. Right lower foot ray amputation with dressing, LYMPHATICS: No lymph nodes palpable in the axilla and neck Investigations: WBC 3.5 hemoglobin 8.4 platelets 118 potassium 4.5 BUN 51 and creatinine 2.55 EKG tracing personally reviewed by me: Sinus rhythm, rate 81 nonspecific T-wave changes Chest x-ray film personally reviewed by me: Bilateral infiltrates Previous testin-D echocardiogram: Moderate concentric LVH. EF 45-50%. Moderate to severe tricuspid regurgitation. Severe pulmonary hypertension. 05/27/2021: BUN 29 creatinine 1.11 platelets 26 hemoglobin 10.6 Assessment and plan: -COVID-19 pneumonia Dexamethasone 6 mg daily. Subcu Lovenox. Vitamin C vitamin D zinc -Acute hypoxic respiratory failure from COVID-19 pneumonia On 6 L of nasal cannula -Acute metabolic encephalopathy from pneumonia Follow clinically - Ray amputation of infected right big toe on May [address] Scruggs. Recently completed a course of IV Invanz. Continue wound care - -Acute UTI with cystitis in a patient with recent Acute right hydronephrosis and hydroureter from right ureter stone,: right ureter stent by Dr. Van -May 25. Completed course of IV Invanz Cultures pending. Started IV ceftriaxone -Chronic kidney disease stage III from diabetic nephropathy and nephrosclerosis Follow renal function -Acute kidney injury, likely ATN from sepsis and decreased oral intake IV fluids -Symptomatic Anemia of chronic kidney disease Follow H&H -Obesity BMI 34.3 Weight loss measures. Follow-up with PCP -Diabetes mellitus type 2 , diet-controlled Follow Accu-Cheks -Coronary artery disease with prior history of bypass Aspirin, Coreg, Plavix -Diabetic peripheral neuropathy -Chronic low back pain from arthritis Tylenol as needed -Chronic medical debility Uses a motorized wheelchair -Secondary severe pulmonary hypertension Follow clinically -Moderate mitral and moderate to severe tricuspid regurgitation Follow clinically -Bilateral renal calculi -Asymptomatic choledocholithiasis Consultation to pulmonary and ID. Home medications resumed. IV fluids. Follow d-dimer, CRP, BMP. Started on IV dexamethasone, subcu Lovenox. Given the complexity and severity of patient's condition expect the patient to be in the hospital at least for 2 overnights Past Medical History Past Medical History: Coronary Artery Disease (CAD), Heart Failure, COPD, Diabetes Mellitus, GERD/Reflux, Hyperlipidemia, Hypertension, Myocardial Infarction ([place]), Osteoarthritis (OA), Renal Disease, Rheumatoid Arthritis (RA), Skin Disorder, Vascular Disorder Additional Past Medical History / Comment(s): venous stasis ulcers, hx cellulitis, 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 Last Myocardial Infarction Date:: 2011 History of Any Multi-Drug Resistant Organisms: MRSA Date of last positivie culture/infection: 05/17/21 ESBL / 03/20/19 MRSA MDRO Source:: ESBL URINE/ MRSA BLOOD Past Surgical History: Section Additional Past Surgical History / Comment(s): 2011 CABG 2 vessel, D&C, C- sections x 2, bilateral lower leg/heels debrided., left above the knee amputation (Oct 2020). Past Anesthesia/Blood Transfusion Reactions: Previous Problems w/ Anesthesia Additional Past Anesthesia/Blood Transfusion Reaction / Comment(s): states fluctuation in heart rate., clausterphobia Past Psychological History: No Psychological Hx Reported Additional Psychological History / Comment(s): LIVES ALONE IN APARTMENT, STATES [employer] N[employer]SE AND HAS AIDE ALSO., company. Denies tobacco smoking or alcohol use. Medically disabled. No experience or international tra storm. No animals in the home. She has a nebulizer and a glucometer. She has VNA aide 3 days a week for cleaning/showering. Comes to wound center for leg wounds. Smoking Status: Former smoker Past Alcohol Use History: None Reported Additional Past Alcohol Use History / Comment(s): stopped smoking in 2011. HX OF 3PPD., In the past used to drink heavily but none since 1990 Past Drug Use History: None Reported - Past Family History Mother Additional Family Medical History / Comment(s): anuerysm Father Family Medical History: CVA/TIA, Diabetes Mellitus, Myocardial Infarction ([place]) Sister(s) Additional Family Medical History / Comment(s): one sister had "hole in her heart" and a kidney transplant and another sister had ms. Medications and Allergies Home Medications Medication Instructions Recorded Confirmed Type Clopidogrel [Plavix] 75 mg PO DAILY@0800 08/17/18 06/17/21 History Gabapentin [Neurontin] 300 mg PO HS #3 capsule 10/21/20 06/17/21 Rx Loperamide [Imodium] 2 mg PO Q6H PRN 05/07/21 06/17/21 History Pantoprazole Sodium 40 mg PO DAILY@0600 05/07/21 06/17/21 History traMADol-ACETAMINOP 37.5-325MG 1 tab PO Q8H PRN 05/17/21 06/17/21 History [Ultracet] Ascorbic Acid [Vitamin C] 500 mg PO TID@0800,1200,1800 06/17/21 06/17/21 History Calcium Carbonate/Vitamin D3 1 tab PO DAILY@0800 06/17/21 06/17/21 History [Calcium 600 mg-Vit D3 5 mcg (200 unit)] Multivitamin with Iron 1 tab PO DAILY 06/17/21 06/17/21 History [Multivitamins with Iron] Ondansetron HCl [Zofran] 4 mg PO Q6H PRN 06/17/21 06/17/21 History Sodium Bicarbonate Tab 650 mg PO TID@0000,0800,1600 06/17/21 06/17/21 History carvediloL [Coreg] 3.125 mg PO BID 06/17/21 06/17/21 History Allergies Allergy/AdvReac Type Severity Reaction Status Date / Time vitamin E (d-alpha Allergy Unknown Rash/Hives Verified 06/17/21 07:04 tocopherol) collagenase Clostridium Allergy Rash/Hives Verified 06/17/21 07:04 histolyticu [From Santyl] latex Allergy Rash/Hives Verified 06/17/21 07:04 pollen extracts AdvReac Mild Itching Verified 06/17/21 07:04 dial soap Allergy Unknown Rash/Hives Uncoded 06/17/21 07:04 Physical Exam Vitals: Vital Signs Temp Pulse Pulse Resp BP BP Pulse Ox 06/17/21 08:25 97.7 F 94 21 117/74 94 L 06/17/21 07:16 78 18 107/55 93 L 06/17/21 06:00 83 18 109/50 93 L 06/17/21 03:44 87 18 92/40 93 L 06/17/21 03:00 28 H 06/17/21 02:41 98.3 F 81 16 106/51 92 L Intake and Output 06/16/21 06/17/21 06/17/21 22:59 06:59 14:59 Other: Weight 90.718 kg 90.718 kg Results CBC & Chem 7: 06/17/21 03:12 06/17/21 03:12 Labs: Abnormal Lab Results - Last 24 Hours (Table) 06/17/21 06/17/21 06/17/21 Range/Units 03:12 03:12 10:04 WBC 3.5 L (3.8-10.6) k/uL RBC 3.19 L (3.80-5.40) m/uL Hgb 8.4 L (11.4-16.0) gm/dL Hct 27.5 L (34.0-46.0) % MCHC 30.5 L (31.0-37.0) g/dL RDW 18.7 H (11.5-15.5) % Plt Count 118 L D (150-450) k/uL Lymphocytes # 0.5 L (1.0-4.8) k/uL Sodium 135 L (137-145) mmol/L BUN 51 H (7-17) mg/dL Creatinine 2.55 H (0.52-1.04) mg/dL Glucose 115 H (74-99) mg/dL POC Glucose (mg/dL) 191 H (75-99) mg/dL Calcium 6.9 L (8.4-10.2) mg/dL AST 51 H (14-36) U/L Lactate Dehydrogenase 1892 H (313-618) U/L C-Reactive Protein 5.7 H (<1.0) mg/dL Total Protein 5.0 L (6.3-8.2) g/dL Albumin 2.1 L (3.5-5.0) g/dL Thrombosis Risk Factor Assmnt - Choose All That Apply Each Risk Factor Represents 2 Points: Age 61-74 years Thrombosis Risk Factor Assessment Total Risk Factor Score: 2 Thrombosis Risk Factor Assessment Level: Low Risk
[2021-06-17] MEDS: SODIUM BICARBONATE TAB 650 MG TAB PO SCH ×2 (17:16→20:40)
[2021-06-17] MEDS: ZINC SULFATE 220 MG CAP PO SCH (17:16)
[2021-06-17] MEDS: CHOLECALCIFEROL 10 MCG (400 IU) TABLET PO SCH (17:16)
[2021-06-17] MEDS: ENOXAPARIN 40 MG/0.4 ML SYRINGE SQ SCH (17:16)
[2021-06-17 17:22] LABS: Glucose,Whole Blood 218 mg/dL (75-99)
[2021-06-17 20:05] LABS: Glucose,Whole Blood 241 mg/dL (75-99)
[2021-06-17] MEDS: carvediloL 3.125 MG TAB PO SCH (20:40)
[2021-06-17] MEDS ORDERED: GABAPENTIN 300 MG CAP PO SCH (21:00)
--- NOTE | 2021-06-17 22:49 | P.CONS ---
History of Present Illness - Reason for Consult Consult date: 06/17/21 covid 19 and UTI Requesting physician: Bobby Quinones - Chief Complaint low pulse ox and shortness of breath x 1 day - History of Present Illness History of present illness : Patient is 60-year female with recent admission to this facility with the patient was treated for ESBL E. coli complicated infection with secondary bacteremia patient also have a wound to the right big toe in this patient status post right big toe condition and chronic nonhealing wound to the right heel area patient was subsequently sent [facility] the [facility] for evaluation of hypoxemia patient was noticed to have be hypoxic with O2 sats of low 90s on 6 L nasal cannula patient did have decreased oral intake and has been complaining of weakness increasing shortness of breath no clear history of any vomiting or diarrhea patient on presentation hospital was afebrile patient did have O2 sats of 92% currently 94% 6 L nasal cannula patient did have leukopenia as well as lymphopenia D-dimer was evaluated 1.35 did have elevated BUN and creatinine LDH was elevated urine has been positive with a positive Covid test admitted emergently on 06/13/2021 patient did have a chest x-ray diffuse bilateral infiltrate and small effusion correlate for diffuse pneumonia patient has been admitted to the hospital infectious disease was consulted because of UTI and a Covid infection most information has been obtained from daughter review the chart as the patient is currently out and is unable to provide any reliable history Review of system: Positive point has been mentioned in HPI complete review could not be obtained because of underlying mental status Past medical history : Reviewed, documented below Past surgical history : Reviewed, documented below Social history: Reviewed, documented below Medications: Reviewed, as documented below EXAMINATION: Vital sigans= Reviewed and documented below GENERAL DESCRIPTION: Middle-aged female lying in bed, no distress. No tachypnea or accessory muscle of respiration use. HEENT: Shows Pallor , no scleral icterus. Oral mucous membrane is dry. NECK: Trachea central, no thyromegaly. LUNGS: Unlabored breathing. Coarse breath sounds bilaterally. No wheeze or crackle. HEART: S1, S2, regular rate and rhythm. ABDOMEN: Soft, no tenderness , guarding or rigidity EXTREMITIES: No edema of feet. SKIN: No rash, no masses palpable. NEUROLOGICAL: The patient is lethargic orientation could not determine LABS AND RADIOLOGY: Reviewed results see below Assessment : 1-patient presented to hospital with increasing shortness of breath hypoxemia in this patient who was recently diagnosed with a COVID-19 at the retirement on 06/13/2021 however it is not really clear when exactly her respiratory symptoms started and whether she will qualify for remdesivir or not, patient currently did have evidence of renal failure with a creatinine clearance less than thirty that will be one of the related contraindication for use of r emdesivir 2-positive UA concerning for asymptomatic urine tract infection with recent urine culture positive for ESBL E. coli 3-patient with renal insufficiency and high risk of nephrotoxicity 4-right heel wound with no evidence of any cellulitis Plan: 1-discontinue Rocephin 2-start patient on Invanz 500 mg daily while waiting for urine culture to finalize 3-dexamethasone zinc Lovenox and vitamin C 4-Aquacel silver dressing to the right heel wound We will follow on clinical condition and cultures to further adjust medication if needed Thank you for this consultation we will follow the patient along with you Past Medical History Past Medical History: Coronary Artery Disease (CAD), Heart Failure, COPD, Diabetes Mellitus, GERD/Reflux, Hyperlipidemia, Hypertension, Myocardial Infarction (CA), Osteoarthritis (OA), Renal Disease, Rheumatoid Arthritis (RA), Skin Disorder, Vascular Disorder Additional Past Medical History / Comment(s): venous stasis ulcers, hx cellulitis, 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 Last Myocardial Infarction Date:: 2011 History of Any Multi-Drug Resistant Organisms: MRSA Year Discovered:: 05/17/21 ESBL / 03/20/19 MRSA MDRO Source:: ESBL URINE/ MRSA BLOOD Past Surgical History: Section Additional Past Surgical History / Comment(s): 2011 CABG 2 vessel, D&C, C-sect ions x 2, bilateral lower leg/heels debrided., left above the knee amputation (Oct 2020). 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 Denies tobacco smoking or alcohol use. Medically disabled. No experience or international travel. No animals in the home. She has a nebulizer and a glucometer. She has [employer] aide 3 days a week for cleaning/showering. Comes to wound center for leg wounds. Smoking Status: Former smoker Past Alcohol Use History: None Reported Additional Past Alcohol Use History / Comment(s): stopped smoking in 2011. HX OF 3PPD., In the past used to drink heavily but none since 1990 Past Drug Use History: None Reported - Past Family History Mother Additional Family Medical History / Comment(s): anuerysm Father Family Medical History: CVA/TIA, Diabetes Mellitus, Myocardial Infarction (CA) Sister(s) Additional Family Medical History / Comment(s): one sister had "hole in her heart" and a kidney transplant and another sister had ms. Medications and Allergies Home Medications Medication Instructions Recorded Confirmed Type Clopidogrel [Plavix] 75 mg PO DAILY@0800 08/17/18 06/17/21 History Gabapentin [Neurontin] 300 mg PO HS #3 capsule 10/21/20 06/17/21 Rx Loperamide [Imodium] 2 mg PO Q6H PRN 05/07/21 06/17/21 History Pantoprazole Sodium 40 mg PO DAILY@0600 05/07/21 06/17/21 History traMADol-ACETAMINOP 37.5-325MG 1 tab PO Q8H PRN 05/17/21 06/17/21 History [Ultracet] Ascorbic Acid [Vitamin C] 500 mg PO TID@0800,1200,1800 06/17/21 06/17/21 History Calcium Carbonate/Vitamin D3 1 tab PO DAILY@0800 06/17/21 06/17/21 History [Calcium 600 mg-Vit D3 5 mcg (200 unit)] Multivitamin with Iron 1 tab PO DAILY 06/17/21 06/17/21 History [Multivitamins with Iron] Ondansetron HCl [Zofran] 4 mg PO Q6H PRN 06/17/21 06/17/21 History Sodium Bicarbonate Tab 650 mg PO TID@0000,0800,1600 06/17/21 06/17/21 History carvediloL [Coreg] 3.125 mg PO BID 06/17/21 06/17/21 History Allergies Allergy/AdvReac Type Severity Reaction Status Date / Time vitamin E (d-alpha Allergy Unknown Rash/Hives Verified 06/17/21 07:04 tocopherol) collagenase Clostridium Allergy Rash/Hives Verified 06/17/21 07:04 histolyticu [From Santyl] latex Allergy Rash/Hives Verified 06/17/21 07:04 pollen extracts AdvReac Mild Itching Verified 06/17/21 07:04 dial soap Allergy Unknown Rash/Hives Uncoded 06/17/21 07:04 Physical Exam Vitals: Vital Signs Temp Pulse Pulse Resp BP BP Pulse Ox 06/17/21 20:40 97.5 F L 76 18 112/55 94 L 06/17/21 16:00 97.9 F 76 17 116/57 96 06/17/21 12:00 97.9 F 71 20 106/52 99 06/17/21 08:25 97.7 F 94 21 117/74 94 L 06/17/21 07:16 78 18 107/55 93 L 06/17/21 06:00 83 18 109/50 93 L 06/17/21 03:44 87 18 92/40 93 L 06/17/21 03:00 28 H 06/17/21 02:41 98.3 F 81 16 106/51 92 L Intake and Output 06/17/21 06/17/21 06/17/21 06:59 14:59 22:59 Intake Total 180 342 Output Total 500 0 Balance -320 342 Intake: Oral 180 342 Output: Urine 500 0 Straight 500 Other: Weight 90.718 kg 90.718 kg Results CBC & Chem 7: 06/17/21 03:12 06/17/21 03:12 Labs: Abnormal Lab Results - Last 24 Hours (Table) 06/17/21 06/17/21 06/17/21 Range/Units 03:12 03:12 10:04 WBC 3.5 L (3.8-10.6) k/uL RBC 3.19 L (3.80-5.40) m/uL Hgb 8.4 L (11.4-16.0) gm/dL Hct 27.5 L (34.0-46.0) % MCHC 30.5 L (31.0-37.0) g/dL RDW 18.7 H (11.5-15.5) % Plt Count 118 L D (150-450) k/uL Lymphocytes # 0.5 L (1.0-4.8) k/uL D-Dimer (<0.60) mg/L FEU Sodium 135 L (137-145) mmol/L BUN 51 H (7-17) mg/dL Creatinine 2.55 H (0.52-1.04) mg/dL Glucose 115 H (74-99) mg/dL POC Glucose (mg/dL) 191 H (75-99) mg/dL Calcium 6.9 L (8.4-10.2) mg/dL AST 51 H (14-36) U/L Lactate Dehydrogenase 1892 H (313-618) U/L C-Reactive Protein 5.7 H (<1.0) mg/dL Total Protein 5.0 L (6.3-8.2) g/dL Albumin 2.1 L (3.5-5.0) g/dL Urine Appearance (Clear) Urine Protein (Negative) Urine Blood (Negative) Ur Leukocyte Esterase (Negative) Urine RBC (0-5) /hpf Urine WBC (0-5) /hpf Urine Bacteria (None) /hpf Urine Yeast (Budding) (None) /hpf 06/17/21 06/17/21 06/17/21 Range/Units 11:12 12:07 14:35 WBC (3.8-10.6) k/uL RBC (3.80-5.40) m/uL Hgb (11.4-16.0) gm/dL Hct (34.0-46.0) % MCHC (31.0-37.0) g/dL RDW (11.5-15.5) % Plt Count (150-450) k/uL Lymphocytes # (1.0-4.8) k/uL D-Dimer 1.35 H (<0.60) mg/L FEU Sodium (137-145) mmol/L BUN (7-17) mg/dL Creatinine (0.52-1.04) mg/dL Glucose (74-99) mg/dL POC Glucose (mg/dL) 208 H (75-99) mg/dL Calcium (8.4-10.2) mg/dL AST (14-36) U/L Lactate Dehydrogenase (313-618) U/L C-Reactive Protein (<1.0) mg/dL Total Protein (6.3-8.2) g/dL Albumin (3.5-5.0) g/dL Urine Appearance Cloudy H (Clear) Urine Protein 1+ H (Negative) Urine Blood Large H (Negative) Ur Leukocyte Esterase Large H (Negative) Urine RBC >182 H (0-5) /hpf Urine WBC 128 H (0-5) /hpf Urine Bacteria Few H (None) /hpf Urine Yeast (Budding) Moderate H (None) /hpf 06/17/21 06/17/21 Range/Units 16:58 20:04 WBC (3.8-10.6) k/uL RBC (3.80-5.40) m/uL Hgb (11.4-16.0) gm/dL Hct (34.0-46.0) % MCHC (31.0-37.0) g/dL RDW (11.5-15.5) % Plt Count (150-450) k/uL Lymphocytes # (1.0-4.8) k/uL D-Dimer (<0.60) mg/L FEU Sodium (137-145) mmol/L BUN (7-17) mg/dL Creatinine (0.52-1.04) mg/dL Glucose (74-99) mg/dL POC Glucose (mg/dL) 218 H 241 H (75-99) mg/dL Calcium (8.4-10.2) mg/dL AST (14-36) U/L Lactate Dehydrogenase (313-618) U/L C-Reactive Protein (<1.0) mg/dL Total Protein (6.3-8.2) g/dL Albumin (3.5-5.0) g/dL Urine Appearance (Clear) Urine Protein (Negative) Urine Blood (Negative) Ur Leukocyte Esterase (Negative) Urine RBC (0-5) /hpf Urine WBC (0-5) /hpf Urine Bacteria (None) /hpf Urine Yeast (Budding) (None) /hpf Microbiology - Last 24 Hours (Table) 06/17/21 14:35 Urine Culture - Preliminary Urine,Voided
[2021-06-18] MEDS: ALBUTEROL HFA INHALER INHALATION SCH ×6 (00:09→21:17)
[2021-06-18] MEDS: SODIUM CHLORIDE 0.9% 1,000 ML IV SCH ×3 (03:44→16:57)
[2021-06-18 06:17] LABS: Glucose,Whole Blood 183 mg/dL (75-99)
[2021-06-18] MEDS: INSULIN ASPART (NovoLOG) 100 UNIT/ML VIAL SQ SCH ×4 (06:27→20:33)
[2021-06-18] MEDS: CALCIUM CARB-VIT D 500 MG-5 MCG TAB PO SCH (08:03)
[2021-06-18] MEDS: ASCORBIC ACID 500 MG TAB PO SCH ×3 (08:03→16:56)
[2021-06-18] MEDS: SODIUM BICARBONATE TAB 650 MG TAB PO SCH ×3 (08:03→20:33)
[2021-06-18] MEDS: ZINC SULFATE 220 MG CAP PO SCH (08:04)
[2021-06-18] MEDS: carvediloL 3.125 MG TAB PO SCH ×2 (08:04→20:33)
[2021-06-18] MEDS: CLOPIDOGREL 75 MG TAB PO SCH (08:04)
[2021-06-18] MEDS: MULTIVITAMINS, THERA 1 EACH TAB PO SCH (08:04)
[2021-06-18] MEDS: ENOXAPARIN 40 MG/0.4 ML SYRINGE SQ SCH (08:06)
[2021-06-18] MEDS: TIOTROPIUM 2.5 MCG INHALER INHALATION SCH (08:42)
[2021-06-18 08:52] LABS: Anisocytosis Slight; Basophils % (A) 0 %; Eosinophils % (A) 0 %; HCT 28.2 % (34.0-46.0); HGB 8.5 gm/dL (11.4-16.0); Hypochromasia Marked; Lymphocytes # (A) 0.2 k/uL (1.0-4.8); Lymphocytes % (A) 11 %; MCH 26.5 pg (25.0-35.0); MCHC 30.1 g/dL (31.0-37.0); MCV 88.2 fL (80.0-100.0); Mean Platelet Volume 9.9; Monocytes # (A) 0.1 k/uL (0-1.0); Monocytes % (A) 4 %; Neutrophils # (A) 1.8 k/uL (1.3-7.7); Neutrophils % (A) 84 %; Platelet Count 104 k/uL (150-450); RBC 3.19 m/uL (3.80-5.40); WBC 2.1 k/uL (3.8-10.6)
[2021-06-18 09:09] LABS: ALT 7 U/L (4-34); AST 42 U/L (14-36); African American GFR (CKD) 23 (>60 ml/min/1.73 sqM); Albumin 2.1 g/dL (3.5-5.0); Alkaline Phosphatase 72 U/L (38-126); Anion Gap 6 mmol/L; Blood Urea Nitrogen 56 mg/dL (7-17); Carbon Dioxide 22 mmol/L (22-30); Chloride 110 mmol/L (98-107); Glucose 156 mg/dL (74-99); Lipase 32 U/L (23-300); Magnesium 1.9 mg/dL (1.6-2.3); Non-African American GFR(CKD) 20 (>60 ml/min/1.73 sqM); Phosphorus 5.1 mg/dL (2.5-4.5); Potassium 4.9 mmol/L (3.5-5.1); Sodium 138 mmol/L (137-145); Total Bilirubin <0.1 mg/dL (0.2-1.3); Total Protein 4.9 g/dL (6.3-8.2)
[2021-06-18 09:28] LABS: C Reactive Protein 4.3 mg/dL (<1.0)
[2021-06-18] MEDS: ERTAPENEM 0.5 GM in SODIUM CHLORIDE 0.9% 50 ML IVPB SCH (09:51)
[2021-06-18] MEDS: DEXAMETHASONE SOD PHOSPHATE 10 MG/ML 1 ML VIAL IV SCH (09:51)
[2021-06-18] MEDS: CHOLECALCIFEROL 10 MCG (400 IU) TABLET PO SCH (09:51)
--- NOTE | 2021-06-18 10:17 | P.PN ---
Subjective Progress Note Date: 06/18/21 This is a 60-year-old female patient, undergoing rehab at the [facility], following her recent hospitalization for ESBL E. coli urinary tract infection, she was discharged to [facility] with the right upper arm PICC line in place in 12 days of Invanz. Patient had hydroureter on the right side, patient underwent right ureteral stent placement on 05/25/2021. Patient Also had a recent amputation of the right big toe by Dr. Scruggs on 05/21/2021. Patient has multiple medical problems including diabetes mellitus type 2, chronic kidney disease stage III, coronary artery disease with bypass, diabetic peripheral neuropathy, chronic low back pain, impaired gait, and patient uses a motorized wheelchair at baseline, most recently she is bedbound, valvular heart disease, severe secondary pulmonary hypertension, mitral and tricuspid regurgitation. Patient was also a former smoker. She is not oxygen dependent at baseline. On 06/17/2021 when she was brought into the emergency department for evaluation of altered mentation, and hypoxia. [facility]. She is very lethargic but she is able to answer some questions, she states she has had the cough and fever since last , 05/12/2021. Was no chest x-ray obtained in the emergency department. Patient was placed on 6 L of oxygen and her pulse ox was only around 92%. He was afebrile while in the emergency department. Her admission blood work showed a white blood cell, 3.5, hemoglobin was 8.4, platelet count was 118, d-dimer came back at 1.35, sodium was 135, potassium is 4.5, there was evidence of acute on chronic kidney disease, with BUN of 51 and creatinine of 2.55, and GFR was 23, LDH was 1892, troponins were 0.032, 0.0-8, and 0.0-4, proBNP was elevated at 26,300; urinalysis showed evidence of infected urine. In the ER Patient was given IV fluid boluses, and she was placed on 0.9 normal saline at a rate of 130 ML per hour. He remains on 6 L of oxygen her pulse ox is 99%, blood pressure stable, she is afebrile, lung sounds are positive for coarse crackles throughou t. Addition patient has open wound on the back of her right calf for which she polyps at the wound care clinic, the right great big toe amputation site is clean dry and intact, sutures are intact. She has a superficial macerated area on her coccyx. Blood cultures are pending at this time. 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 Denies any difficulty breathing, lung sounds reveal diffuse crackles bilaterally, currently she is on 8 L of oxygen and her pulse ox is 87-88%, the FiO2 was then increased to 10 L, and her pulse ox is around 90%. No coughing, no phlegm production, no chest discomfort. No fever or chills overnight, vital signs have been stable, breathing is nonlabored, yesterday's chest x-ray showed diffuse bilateral infiltrates and small pleural effusion. We'll cut back IV fl uids to 50 ML yesterday, however overnight there were increased again to 130 ML per hour, patient does have generalized edema and diffuse crackles bilaterally, given fluid boluses in the emergency department, and her proBNP was significantly elevated on admission. Today's labs have been reviewed, and her renal profile is relatively stable, with the BUN of 56 and creatinine of 2.49. Urine output is difficult to estimate as the patient is incontinent of urine and has a brief on. Patient is receiving wound care treatments to her right lower extremity posterior messer area wound, and the area of recent right great big toe amputation. No other acute events overnight. Patient is currently Invanz, ID service is following, blood and urine cultures have been sent and are pending at this time, Objective - Vital Signs Vital signs: Vital Signs Temp 97.8 F 06/18/21 08:06 Pulse 77 06/18/21 08:06 Resp 20 06/18/21 08:06 BP 112/58 06/18/21 08:06 Pulse Ox 90 L 06/18/21 10:11 Intake & Output 06/17/21 06/18/21 06/18/21 18:59 06:59 18:59 Intake Total 402 120 Output Total 500 0 Balance -98 120 Weight 90.718 kg Intake: Oral 402 120 Output: Urine 500 0 Straight 500 Other: Voiding Method Bedpan # Voids 1 - Exam GENERAL EXAM: Large, but arousable, 60-year-old white female, on 8 L of oxygen, breathing fairly comfortably, pulse ox is 88% comfortable in no apparent distress. HEAD: Normocephalic/atraumatic. EYES: Normal reaction of pupils, equal size. Conjunctiva pink, sclera white. NOSE: Clear with pink turbinates. THROAT: No erythema or exudates. NECK: No masses, no JVD, no thyroid enlargement, no adenopathy. CHEST: No chest wall deformity. Symmetrical expansion. LUNGS: Equal air entry with coarse crackles throughout CVS: Regular rate and rhythm, normal S1 and S2, no gallops, no murmurs, no rubs ABDOMEN: Soft, nontender. No hepatosplenomegaly, normal bowel sounds, no guarding or rigidity. EXTREMITIES: No clubbing, no edema, no cyanosis, 2+ pulses and upper and lower extremities. Left [id number] amputation, right great big toe amputation site clean dry and intact, sutures clean dry and intact, reich area on the back of her right calf, bleeding, does not appear to be infected, surrounding area is extremely flaky, and dry MUSCULOSKELETAL: Muscle strength and tone normal. SPINE: No scoliosis or deformity SKIN: No rashes CENTRAL NERVOUS SYSTEM: Alert and oriented -2. No focal deficits, tone is normal in all 4 extremities. PSYCHIATRIC: Alert and oriented -2. Appropriate affect. Intact judgment and insight. - Labs CBC & Chem 7: 06/18/21 07:38 06/18/21 07:38 Labs: Abnormal Lab Results - Last 24 Hours (Table) 06/17/21 06/17/21 06/17/21 Range/Units 11:12 12:07 14:35 WBC (3.8-10.6) k/uL RBC (3.80-5.40) m/uL Hgb (11.4-16.0) gm/dL Hct (34.0-46.0) % MCHC (31.0-37.0) g/dL RDW (11.5-15.5) % Plt Count (150-450) k/uL Lymphocytes # (1.0-4.8) k/uL D-Dimer 1.35 H (<0.60) mg/L FEU Chloride (98-107) mmol/L BUN (7-17) mg/dL Creatinine (0.52-1.04) mg/dL Glucose (74-99) mg/dL POC Glucose (mg/dL) 208 H (75-99) mg/dL Calcium (8.4-10.2) mg/dL Phosphorus (2.5-4.5) mg/dL Total Bilirubin (0.2-1.3) mg/dL AST (14-36) U/L C-Reactive Protein (<1.0) mg/dL Total Protein (6.3-8.2) g/dL Albumin (3.5-5.0) g/dL Urine Appearance Cloudy H (Clear) Urine Protein 1+ H (Negative) Urine Blood Large H (Negative) Ur Leukocyte Esterase Large H (Negative) Urine RBC >182 H (0-5) /hpf Urine WBC 128 H (0-5) /hpf Urine Bacteria Few H (None) /hpf Urine Yeast (Budding) Moderate H (None) /hpf 06/17/21 06/17/21 06/18/21 Range/Units 16:58 20:04 06:13 WBC (3.8-10.6) k/uL RBC (3.80-5.40) m/uL Hgb (11.4-16.0) gm/dL Hct (34.0-46.0) % MCHC (31.0-37.0) g/dL RDW (11.5-15.5) % Plt Count (150-450) k/uL Lymphocytes # (1.0-4.8) k/uL D-Dimer (<0.60) mg/L FEU Chloride (98-107) mmol/L BUN (7-17) mg/dL Creatinine (0.52-1.04) mg/dL Glucose (74-99) mg/dL POC Glucose (mg/dL) 218 H 241 H 183 H (75-99) mg/dL Calcium (8.4-10.2) mg/dL Phosphorus (2.5-4.5) mg/dL Total Bilirubin (0.2-1.3) mg/dL AST (14-36) U/L C-Reactive Protein (<1.0) mg/dL Total Protein (6.3-8.2) g/dL Albumin (3.5-5.0) g/dL Urine Appearance (Clear) Urine Protein (Negative) Urine Blood (Negative) Ur Leukocyte Esterase (Negative) Urine RBC (0-5) /hpf Urine WBC (0-5) /hpf Urine Bacteria (None) /hpf Urine Yeast (Budding) (None) /hpf 06/18/21 06/18/21 06/18/21 Range/Units 07:38 07:38 07:38 WBC 2.1 L (3.8-10.6) k/uL RBC 3.19 L (3.80-5.40) m/uL Hgb 8.5 L (11.4-16.0) gm/dL Hct 28.2 L (34.0-46.0) % MCHC 30.1 L (31.0-37.0) g/dL RDW 18.0 H (11.5-15.5) % Plt Count 104 L (150-450) k/uL Lymphocytes # 0.2 L (1.0-4.8) k/uL D-Dimer 1.24 H (<0.60) mg/L FEU Chloride 110 H (98-107) mmol/L BUN 56 H (7-17) mg/dL Creatinine 2.49 H (0.52-1.04) mg/dL Glucose 156 H (74-99) mg/dL POC Glucose (mg/dL) (75-99) mg/dL Calcium 7.0 L (8.4-10.2) mg/dL Phosphorus 5.1 H (2.5-4.5) mg/dL Total Bilirubin <0.1 L (0.2-1.3) mg/dL AST 42 H (14-36) U/L C-Reactive Protein 4.3 H (<1.0) mg/dL Total Protein 4.9 L (6.3-8.2) g/dL Albumin 2.1 L (3.5-5.0) g/dL Urine Appearance (Clear) Urine Protein (Negative) Urine Blood (Negative) Ur Leukocyte Esterase (Negative) Urine RBC (0-5) /hpf Urine WBC (0-5) /hpf Urine Bacteria (None) /hpf Urine Yeast (Budding) (None) /hpf Microbiology - Last 24 Hours (Table) 06/17/21 03:00 Blood Culture - Preliminary Blood No Growth after 24 hours 06/17/21 03:15 Blood Culture - Preliminary Blood No Growth after 24 hours 06/17/21 14:35 Urine Culture - Preliminary Urine,Voided Assessment and Plan Plan: Assessment: #1. Acute hypoxic respiratory failure related to acute COVID-19 pneumonia, and there is a possibility of acute exacerbation of CHF with systolic dysfunction. Patient tested positive for COVID-19 on 06/13/2021 #2. Acute urinary tract infection, rule out possibility of an ESBL infection #3. Recent hospitalization for ESBL E. coli urinary tract infection #4. Recent right great big toe amputation for nonhealing wound on 05/21/2021 #5. Recent history of right hydronephrosis with ureteral stent placement on 05/25/2021 #6. Acute on chronic kidney disease #7. Valvular heart disease, with moderate MR, and moderate to severe tricuspid regurgitation, and severe pulmonary hypertension with right-sided pressure of 88 .5 mmHg #8. Reported history of COPD, not oxygen dependent at baseline #9. Former smoker #10. Diabetes mellitus, with diabetic neuropathy #11. Chronic kidney disease stage III at baseline #12. Peripheral vascular disease with previous history of left [id number] amputation #13. Nonhealing wound on the right lower leg posterior messer area, patient follows at the wound care center #14. Urinary artery disease with previous history of bypass grafting #15. Previous history of myocardial infarction #16. Rheumatoid arthritis Plan: Obtain follow-up chest x-ray Continue Decadron and Lovenox We'll cut back to fluids to 50 ML per hour Will consider Lasix Today's labs noted, awaiting final cultures Antibiotics per ID service recommendations Overall prognosis is guarded Obtain follow-up inflammatory markers and a d-dimer Will follow I performed a history & physical examination of the patient and discussed their management with my nurse practitioner, Kaya Sorensen. I reviewed the nurse practitioner's note and agree with the documented findings and plan of care. Lung sounds are positive for diminished breath sounds throughout the lung zambrano. The findings and the impression was discussed with the patient. I attest to the documentation by the nurse practitioner. Time with Patient: Less than 30
[2021-06-18 11:50] LABS: Glucose,Whole Blood 205 mg/dL (75-99)
--- NOTE | 2021-06-18 12:00 | XR ---
EXAMINATION TYPE: XR chest 1V portable DATE OF EXAM: 06/18/2021 COMPARISON: 06/17/2021 HISTORY: Cough TECHNIQUE: Single frontal view of the chest is obtained. FINDINGS: Diffuse bilateral infiltrates with right-sided pleural effusion stable. Heart is enlarged and there is postoperative change with no sizable pneumothorax. Diffuse osteopenia IMPRESSION: Bilateral infiltrates stable.
[2021-06-18] MEDS ORDERED: ENOXAPARIN 40 MG/0.4 ML SYRINGE SQ STA (12:47)
[2021-06-18 16:42] LABS: Glucose,Whole Blood 186 mg/dL (75-99)
[2021-06-18 16:59] LABS: Appearance,Urine Turbid (Clear); Bacteria,Urine Few /hpf; Bilirubin,Urine Negative (Negative); Blood,Urine Large (Negative); Budding Yeast,Urine Many /hpf; Color,Urine Red; Glucose,Urine (UA) Negative (Negative); Ketones,Urine Negative (Negative); Leukocyte Esterase,Urine Large (Negative); Mucus,Urine Many /hpf; Nitrite,Urine Negative (Negative); PH, Urine 5.5 (5.0-8.0); Protein,Urine 2+ (Negative); RBC,Urine >182 /hpf (0-5); Specific Gravity,Urine 1.018 (1.001-1.035); Squamous Epithelial Cell,Urine 14 /hpf (0-4); Urobilinogen,Urine <2.0 mg/dL (<2.0); WBC,Urine >182 /hpf (0-5)
--- NOTE | 2021-06-18 18:16 | PN ---
PROGRESS NOTE DATE OF SERVICE: 06/18/2021 REASON FOR FOLLOWUP: 1. Urinary tract infection. 2. Covid 19 infection. INTERVAL HISTORY: The patient is afebrile. The patient is more awake and alert today. She is breathing slightly comfortably. However requiring 15 L high-flow oxygen. Denies any chest pain. Did have a cough, not bringing up any sputum. No abdominal pain. No diarrhea. PHYSICAL EXAMINATION: Blood pressure 126/59 with a pulse of 70, temperature is 97.6, she is 90% on continued high flow oxygen. General description is a middle-aged female lying in bed in no distress. Respiratory system: Unlabored breathing. Coarse breath sounds in bases bilaterally. Heart S1, S2. Regular rate and rhythm. Abdomen: Soft, no tenderness. LABS: Hemoglobin 8.8. White 2.1, BUN of 56, creatinine 2.49, procalcitonin 0.6. Repeat urine is positive. Cultures currently pending. DIAGNOSTIC IMPRESSION AND PLAN: 1. Patient admitted to the hospital with acute COVID-19 infection. Symptoms started over the weekend. Patient did have renal insufficiency. Currently covered with Decadron, Lovenox, zinc and ascorbic acid to to continue along with respiratory support. 2. Patient with urinary tract infection, previous history of ESBL, covered with Invanz, to continue while monitoring clinical course closely. MMODL / IJN: [id number] /
[2021-06-18 20:05] LABS: Glucose,Whole Blood 177 mg/dL (75-99)
--- NOTE | 2021-06-18 20:24 | P.PN ---
Progress Note - Text Progress Note Date: 06/18/21 Chief Complaint: Hypoxemia History of presenting complaint: This is a pleasant 60-year-old patient, visiting physicians Dr. Garcia. Chronic stable medical conditions include (above-knee amputation, chronic wound on the right lower extremity being followed by Dr. Scruggs from vascular, at the wound care center by Lauren, and also has home care. Chronic kidney disease stage III, diabetes mellitus type 2, hyperlipidemia, coronary artery disease with bypass, diabetic peripheral neuropathy, lower back pain from arthritis, uses a motorized wheelchair at baseline, severe secondary pulmonary hypertension, mitral and tricuspid regurgitation. May 10 discharged from the hospital , following debridement of the right lower extremity. Suggestion was made for amputation of the toe. Patient was seen at the wound care center on this . discharged from the hospital May 28. Patient had a acute UTI with right ureter hydronephrosis with positive blood cultures E. coli/ESBL. Underwent right big toe ray amputation by Dr. Scruggs. Also underwent stent placement to the right ureter on May [address] Van. Discharged on IV Invanz. Patient will now sent in from the ECF for becoming hypoxic. Pulse ox was in low 90s on 6 L. Patient's diet. Decreased oral intake. Shortness of breath. Some cough. Patient was positive for COVID on May 13. Because of increasing oxygen requirement patient was sent in. Patient rather tired. Patient did eat her breakfast this morning. Easily tired Admitted with COVID-19 pneumonia, acute hypoxic respiratory failure, metabolic encephalopathy. Placed on IV Decadron. Also UTI. Acute kidney injury 06/18/2021: More awake today. Eating. Shortness of breath. Nasal cannula. On IV Decadron. No self Lovenox increased to therapeutic dose given the increased d-dimer. Also IV Ertapenem for UTI. IV fluids. 90% on 15 L high flow oxygen Review of systems: Was done for constitutional, cardiovascular, GI, pulmonary. relevant finding as above Active Medications Albuterol Sulfate (Albuterol Hfa Inhaler) 2 puff INHALATION RT-Q6H PRN PRN Reason: Shortness Of Breath Or Wheezing Albuterol Sulfate (Albuterol Hfa Inhaler) 2 puff INHALATION RT-Q4H DAVIE Last Admin: 06/18/21 16:55 Dose: 2 puff Documented by: Ascorbic Acid (Ascorbic Acid 500 Mg Tab) 500 mg PO TID@0800,1200,1800 [facility] Last Admin: 06/18/21 16:56 Dose: 500 mg Documented by: Calcium Carbonate (Calcium Carb-Vit D 500 Mg-5 Mcg Tab) 1 each PO DAILY@0800 [facility] Last Admin: 06/18/21 08:03 Dose: 1 each Documented by: Carvedilol (Carvedilol 3.125 Mg Tab) 3.125 mg PO BID [facility] Last Admin: 06/18/21 08:04 Dose: 3.125 mg Documented by: Cholecalciferol (Cholecalciferol 10 Mcg (400 Iu) Tablet) 10 mcg PO DAILY [facility] Last Admin: 06/18/21 09:51 Dose: 10 mcg Documented by: Clopidogrel Bisulfate (Clopidogrel 75 Mg Tab) 75 mg PO DAILY@0800 [facility] Last Admin: 06/18/21 08:04 Dose: 75 mg Documented by: Dexamethasone Sodium Phosphate (Dexamethasone Sod Phosphate 10 Mg/Ml 1 Ml Vial) 6 mg IV DAILY [facility] Last Admin: 06/18/21 09:51 Dose: 6 mg Documented by: Enoxaparin Sodium (Enoxaparin 80 Mg/0.8 Ml Syringe) 80 mg SQ DAILY [facility] Ertapenem 0.5 gm/ Sodium (Chloride) 50 mls @ 100 mls/hr IVPB DAILY [facility]; Protoc ol Last Admin: 06/18/21 09:51 Dose: 100 mls/hr Documented by: Sodium Chloride (Saline 0.9%) 1,000 mls @ 20 mls/hr IV .Q24H [facility] Last Admin: 06/18/21 16:57 Dose: Not Given Documented by: Insulin Aspart (Insulin Aspart (Novolog) 100 Unit/Ml Vial) 0 unit SQ ACHS [facility]; Protocol Last Admin: 06/18/21 16:50 Dose: 5 unit Documented by: Loperamide HCl (Loperamide 2 Mg Cap) 2 mg PO Q6H PRN PRN Reason: Diarrhea Multivitamins (Multivitamins, Thera 1 Each Tab) 1 each PO DAILY [facility] Last Admin: 06/18/21 08:04 Dose: 1 each Documented by: Naloxone HCl (Naloxone 0.4 Mg/Ml 1 Ml Vial) 0.2 mg IV Q2M PRN PRN Reason: Opioid Reversal Ondansetron HCl (Ondansetron 4 Mg Tab) 4 mg PO Q6H PRN PRN Reason: Nausea And Vomiting Sodium Bicarbonate (Sodium Bicarbonate Tab 650 Mg Tab) 650 mg PO TID@000 0,0800,1600 [facility] Last Admin: 06/18/21 16:50 Dose: 650 mg Documented by: Tiotropium [place] (Tiotropium 2.5 Mcg Inhaler) 2 puff INHALATION RT-DAILY [facility] Last Admin: 06/18/21 08:42 Dose: 2 puff Documented by: Tramadol/Acetaminophen (Tramadol-Acetaminop 37.5-325mg 1 Each Tab) 1 each PO Q8H PRN PRN Reason: Pain Zinc Sulfate (Zinc Sulfate 220 Mg Cap) 220 mg PO DAILY [facility] Last Admin: 06/18/21 08:04 Dose: 220 mg Documented by: Past medical history to include: Left above-knee amputation, right big toe surgery amputation chronic kidney disease stage III, diabetes mellitus, hyperlipidemia, coronary artery disease with bypass, diabetic peripheral neuropathy, lower back pain from arthritis, GERD venous stasis ulcers, peripheral neuropathy, Social history: At [facility] currently. Motorized wheelchair. Home care. She was drinking heavily of April 1991. Smoking up to 3 packs a day up to 2011. Family history: Diabetes, DC, and resume, stroke Physical examination: VITAL SIGNS: 99, 79, 18, 125/79, 90% on 15 L high flow GENERAL: Declining bed, more awake today, short of breath EYES: Pupils equal. Conjunctiva normal. NECK: JVD not raised; masses not palpable. HEART: First and second heart sounds are normal; no edema. LUNGS: Respiratory rate increased, decreased breath sounds. ABDOMEN: Soft, nontender, liver spleen not palpable, no masses palpable. PSYCH: AO 3 condyloma mood and affect anxious NEUROLOGICAL: Cranial nerves grossly intact; no facial asymmetry, power and sensation grossly intact. EXTREMITIES: Left above-knee amputation. Right lower foot ray amputation with dressing, Investigations: 06/18/2021: WBC 2.1 hemoglobin 8.5 platelets 104 potassium 4.9 BUN 56 creatinine 2.49 pro-calcitonin 0.63 d-dimer 1.24 WBC 3.5 hemoglobin 8.4 platelets 118 potassium 4.5 BUN 51 and creatinine 2.55 EKG tracing personally reviewed by me: Sinus rhythm, rate 81 nonspecific T-wave changes Chest x-ray film personally reviewed by me: Bilateral infiltrates Previous testin-D echocardiogram: Moderate concentric LVH. EF 45-50%. Moderate to severe tricuspid regurgitation. Severe pulmonary hypertension. 05/27/2021: BUN 29 creatinine 1.11 platelets 26 hemoglobin 10.6 Assessment and plan: -Severe COVID-19 pneumonia Dexamethasone 6 mg daily. Subcu Lovenox. Vitamin C vitamin D zinc. -Acute hypoxic respiratory failure from COVID-19 pneumonia: Worsening On 15 L high flow oxygen -Acute metabolic encephalopathy from pneumonia: Better Follow clinically - Ray amputation of infected right big toe on May [address] Scruggs. Recently completed a course of IV Invanz. Continue wound care -Acute UTI with cystitis in a patient with recent Acute right hydronephrosis and hydroureter from right ureter stone,: right ureter stent by Dr. Van -May 25. Completed course of IV Invanz Cultures pending. Started today on IV Ertapenem -Chronic kidney disease stage III from diabetic nephropathy and nephrosclerosis Follow renal function -Acute kidney injury, likely ATN from sepsis and decreased oral intake IV fluids -Symptomatic Anemia of chronic kidney disease Follow H&H -Obesity BMI 34.3 Weight loss measures. Follow-up with PCP -Diabetes mellitus type 2 , diet-controlled Follow Accu-Cheks -Coronary artery disease with prior history of bypass Aspirin, Coreg, Plavix -Diabetic peripheral neuropathy -Chronic low back pain from arthritis Tylenol as needed -Chronic medical debility Uses a motorized wheelchair -Secondary severe pulmonary hypertension Follow clinically -Moderate mitral and moderate to severe tricuspid regurgitation Follow clinically -Bilateral renal calculi -Asymptomatic choledocholithiasis Increasing oxygen requirement. On 15 L nasal cannula. IV dexamethasone. IV ertapenem. IV fluids. Follow labs. Discussed with the patient.
[2021-06-19] MEDS: ALBUTEROL HFA INHALER INHALATION SCH ×6 (00:04→22:06)
[2021-06-19] MEDS: traMADol-ACETAMINOP 37.5-325MG 1 EACH TAB PO PRN (05:26)
[2021-06-19 06:29] LABS: Glucose,Whole Blood 181 mg/dL (75-99)
[2021-06-19] MEDS: INSULIN ASPART (NovoLOG) 100 UNIT/ML VIAL SQ SCH ×4 (06:49→21:50)
[2021-06-19] MEDS: ERTAPENEM 0.5 GM in SODIUM CHLORIDE 0.9% 50 ML IVPB SCH (08:12)
[2021-06-19] MEDS: MULTIVITAMINS, THERA 1 EACH TAB PO SCH (08:13)
[2021-06-19] MEDS: CHOLECALCIFEROL 10 MCG (400 IU) TABLET PO SCH (08:13)
[2021-06-19] MEDS: DEXAMETHASONE SOD PHOSPHATE 10 MG/ML 1 ML VIAL IV SCH (08:13)
[2021-06-19] MEDS: carvediloL 3.125 MG TAB PO SCH ×2 (08:14→21:50)
[2021-06-19] MEDS: CALCIUM CARB-VIT D 500 MG-5 MCG TAB PO SCH (08:14)
[2021-06-19] MEDS: CLOPIDOGREL 75 MG TAB PO SCH (08:14)
[2021-06-19] MEDS: ASCORBIC ACID 500 MG TAB PO SCH ×3 (08:14→18:54)
[2021-06-19] MEDS: SODIUM BICARBONATE TAB 650 MG TAB PO SCH ×3 (08:14→23:22)
[2021-06-19] MEDS ORDERED: ENOXAPARIN 80 MG/0.8 ML SYRINGE SQ SCH (09:00)
[2021-06-19] MEDS: TIOTROPIUM 2.5 MCG INHALER INHALATION SCH (10:01)
[2021-06-19 10:13] LABS: Anisocytosis Slight; Basophils % (A) 0 %; Eosinophils % (A) 0 %; HCT 27.1 % (34.0-46.0); HGB 8.4 gm/dL (11.4-16.0); Hypochromasia Marked; Lymphocytes # (A) 0.2 k/uL (1.0-4.8); Lymphocytes % (A) 5 %; MCH 26.5 pg (25.0-35.0); MCHC 30.8 g/dL (31.0-37.0); Mean Platelet Volume 8.7; Monocytes # (A) 0.2 k/uL (0-1.0); Monocytes % (A) 5 %; Neutrophils # (A) 4.3 k/uL (1.3-7.7); Neutrophils % (A) 89 %; Platelet Count 133 k/uL (150-450); RBC 3.15 m/uL (3.80-5.40); RDW 18.4 % (11.5-15.5); WBC 4.8 k/uL (3.8-10.6)
[2021-06-19] MEDS: ZINC SULFATE 220 MG CAP PO SCH (10:16)
--- NOTE | 2021-06-19 10:19 | P.CONS ---
History of Present Illness - Reason for Consult Consult date: 06/19/21 wound care - History of Present Illness This is a 60 year old female patient known to the wound care center with multiple ulcerations to the right lower extremities. Who recently underwent a right great toe amputation. Patient has multiple ulcerations to the right lower extremity including right calcaneus, right posterior, and medial superior right lower extremity Original cause of wound was Gradually Appeared. The wound is currently classified as a Full Thickness Without Exposed Support Structures wound with etiology of Venous Leg Ulcer and is located on the Medial,Superior Lower Leg. The wound measures 10.4cm length x 7.2cm width x 0.2cm depth; 58.811cm^2 area and 11.762cm^3 volume. There is Fat Layer (Subcutaneous Tissue) Exposed exposed. There is no tunneling or undermining noted. There is a large amount of serous drainage noted. The wound margin is indistinct and nonvisible. There is small (1-33%) red granulation within the wound bed. There is a large (67-100%) amount of necrotic tissue within the wound bed including Adherent Slough. The periwound skin appearance exhibited: Maceration, Hemosiderin S taining, Erythema. The periwound skin appearance did not exhibit: Callus, Crepitus, Excoriation, Induration, Rash, Scarring, Dry/Scaly, Atrophie [place], Cyanosis. The surrounding wound skin color is noted with erythema which is circumferential. Original cause of wound was Not Known. The wound is currently classified as a Category/Stage III wound with etiology of Pressure Ulcer and is located on the Right,Posterior Calcaneus. The wound measures 5.9cm length x 4.3cm width x 0.1cm depth; 19.926cm^2 area and 1.993cm^3 volume. There is Fat Layer (Subcutaneous Tissue) Exposed exposed. There is no tunneling or undermining noted. There is a large amount of serous drainage noted. The wound margin is thickened. There is no granulation within the wound bed. There is a large (67-100%) amount of nec rotic tissue within the wound bed including Eschar and Adherent Slough. The periwound skin appearance exhibited: Maceration. The periwound skin appearance did not exhibit: Callus, Crepitus, Excoriation, Induration, Rash, Scarring, Dry/Scaly. Original cause of wound was Gradually Appeared. The wound is currently classified as a Full Thickness Without Exposed Support Structures wound with etiology of Venous Leg Ulcer and is located on the Right,Posterior Lower Leg. The wound measures 12.5cm length x 6.5cm width x 0.1cm depth; 63.814cm^2 area and 6.381cm^3 volume. The wound is limited to skin breakdown. There is no tunneling or undermining noted. There is a large amount of serous drainage not ed. The wound margin is indistinct and nonvisible. There is medium (34-66%) pink granulation within the wound bed. There is a medium (34-66%) amount of necrotic tissue within the wound bed including Adherent Slough. The periwound skin appearance exhibited: Scarring, Maceration, Hemosiderin Staining, Erythema. The periwound skin appearance did not exhibit: Dry/Scaly. The surrounding wound skin color is noted with erythema which is circumferential. Review Of Systems: Constitutional: No fever, no chills, no night sweats. No weight change. No weakness, fatigue or lethargy. No daytime sleepiness. Integumentary:reports wounds, no lesions. No rash or pruritus. No unusual bruising. No change in hair or nails. Physical exam: General Appearance: Alert, cooperative, no distress, appears stated age. Skin: See HPI all other Skin color, texture, tugor normal, no rashes or lesions. Neurologic: Alert oriented x3 Assessment: 1. Diabetes mellitus due to underlying condition with foot ulcer 2. Varicose veins of right lower extremity with ulcer of unspecified site 3. Pressure ulcer right heel stage 2 4. Other obesity due to excess calories Plan: 1. Right heel: Apply honey alginate, saline moist gauze, dry gauze, and rolled gauze. Change Wednesday, , and wednesday. 2. Right lower extremity: Apply honey alginate, rolled gauze, and rolando wrap to secure. Change outer dressing daily if saturated. Change wednesday, and wednesday. Thank you for the consultation any questions please contact the wound care center DNP note has been reviewed and discussed with Dr. Solomon and the impression and plan of care has been directed as dictated. Past Medical History Past Medical History: Coronary Artery Disease (CAD), Heart Failure, COPD, Di abetes Mellitus, GERD/Reflux, Hyperlipidemia, Hypertension, Myocardial Infarction (OR), Osteoarthritis (OA), Renal Disease, Rheumatoid Arthritis (RA), Skin Disorder, Vascular Disorder Additional Past Medical History / Comment(s): venous stasis ulcers, hx cellulitis, 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 Denies tobacco smoking or alcohol use. Medically disabled. No experience or international travel. No animals in the home. She has a nebulizer and a glucometer. She has [employer] aide 3 days a week for cleaning/showering. Comes to wound center for leg wounds. Smoking Status: Former smoker Past Alcohol Use History: None Reported Additional Past Alcohol Use History / Comment(s): stopped smoking in 2011. HX OF 3PPD., In the past used to drink heavily but none since 1990 Past Drug Use History: None Reported - Past Family History Mother Additional Family Medical History / Comment(s): anuerysm Father Family Medical History: CVA/TIA, Diabetes Mellitus, Myocardial Infarction (OR) Sister(s) Additional Family Medical History / Comment(s): one sister had "hole in her heart" and a kidney transplant and another sister had ms. Medications and Allergies Home Medications Medication Instructions Recorded Confirmed Type Clopidogrel [Plavix] 75 mg PO DAILY@0800 08/17/18 06/17/21 History Gabapentin [Neurontin] 300 mg PO HS #3 capsule 10/21/20 06/17/21 Rx Loperamide [Imodium] 2 mg PO Q6H PRN 05/07/21 06/17/21 History Pantoprazole Sodium 40 mg PO DAILY@0600 05/07/21 06/17/21 History traMADol-ACETAMINOP 37.5-325MG 1 tab PO Q8H PRN 05/17/21 06/17/21 History [Ultracet] Ascorbic Acid [Vitamin C] 500 mg PO TID@0800,1200,1800 06/17/21 06/17/21 History Calcium Carbonate/Vitamin D3 1 tab PO DAILY@0800 06/17/21 06/17/21 History [Calcium 600 mg-Vit D3 5 mcg (200 unit)] Multivitamin with Iron 1 tab PO DAILY 06/17/21 06/17/21 History [Multivitamins with Iron] Ondansetron HCl [Zofran] 4 mg PO Q6H PRN 06/17/21 06/17/21 History Sodium Bicarbonate Tab 650 mg PO TID@0000,0800,1600 06/17/21 06/17/21 History carvediloL [Coreg] 3.125 mg PO BID 06/17/21 06/17/21 History Allergies Allergy/AdvReac Type Severity Reaction Status Date / Time vitamin E (d-alpha Allergy Unknown Rash/Hives Verified 06/17/21 07:04 tocopherol) collagenase Clostridium Allergy Rash/Hives Verified 06/17/21 07:04 histolyticu [From Santyl] latex Allergy Rash/Hives Verified 06/17/21 07:04 pollen extracts AdvReac Mild Itching Verified 06/17/21 07:04 dial soap Allergy Unknown Rash/Hives Uncoded 06/17/21 07:04 Physical Exam Vitals: Vital Signs Temp Pulse Resp BP Pulse Ox 06/19/21 10:06 88 L 06/19/21 08:00 98 F 84 25 H 119/57 06/19/21 03:07 97.9 F 81 20 123/58 85 L 06/19/21 00:00 98.5 F 80 20 118/55 95 06/18/21 21:17 90 L 06/18/21 20:30 98.2 F 82 24 119/64 82 L 06/18/21 16:53 97.6 F 78 20 126/59 90 L 06/18/21 14:02 18 06/18/21 12:37 99.0 F 79 18 125/79 90 L Intake and Output 06/18/21 06/19/21 06/19/21 22:59 06:59 14:59 Intake Total 222 236 Output Total 450 450 Balance -228 -450 236 Intake: Oral 222 236 Output: Urine 450 450 Other: Voiding Method Indwelling Catheter Results CBC & Chem 7: 06/19/21 08:52 06/18/21 07:38 Labs: Abnormal Lab Results - Last 24 Hours (Table) 06/18/21 06/18/21 06/18/21 Range/Units 07:38 11:40 16:40 RBC (3.80-5.40) m/uL Hgb (11.4-16.0) gm/dL Hct (34.0-46.0) % MCHC (31.0-37.0) g/dL RDW (11.5-15.5) % Plt Count (150-450) k/uL Lymphocytes # (1.0-4.8) k/uL POC Glucose (mg/dL) 205 H (75-99) mg/dL Procalcitonin 0.63 H (0.02-0.09) ng/mL Urine Appearance Turbid H (Clear) Urine Protein 2+ H (Negative) Urine Blood Large H (Negative) Ur Leukocyte Esterase Large H (Negative) Urine RBC >182 H (0-5) /hpf Urine WBC >182 H (0-5) /hpf Urine WBC Clumps Many H (None) /hpf Ur Squamous Epith Cells 14 H (0-4) /hpf Urine Bacteria Few H (None) /hpf Urine Mucus Many H (None) /hpf Urine Yeast (Budding) Many H (None) /hpf 06/18/21 06/18/21 06/19/21 Range/Units 16:41 20:02 06:28 RBC (3.80-5.40) m/uL Hgb (11.4-16.0) gm/dL Hct (34.0-46.0) % MCHC (31.0-37.0) g/dL RDW (11.5-15.5) % Plt Count (150-450) k/uL Lymphocytes # (1.0-4.8) k/uL POC Glucose (mg/dL) 186 H 177 H 181 H (75-99) mg/dL Procalcitonin (0.02-0.09) ng/mL Urine Appearance (Clear) Urine Protein (Negative) Urine Blood (Negative) Ur Leukocyte Esterase (Negative) Urine RBC (0-5) /hpf Urine WBC (0-5) /hpf Urine WBC Clumps (None) /hpf Ur Squamous Epith Cells (0-4) /hpf Urine Bacteria (None) /hpf Urine Mucus (None) /hpf Urine Yeast (Budding) (None) /hpf 06/19/21 Range/Units 08:52 RBC 3.15 L (3.80-5.40) m/uL Hgb 8.4 L (11.4-16.0) gm/dL Hct 27.1 L (34.0-46.0) % MCHC 30.8 L (31.0-37.0) g/dL RDW 18.4 H (11.5-15.5) % Plt Count 133 L (150-450) k/uL Lymphocytes # 0.2 L (1.0-4.8) k/uL POC Glucose (mg/dL) (75-99) mg/dL Procalcitonin (0.02-0.09) ng/mL Urine Appearance (Clear) Urine Protein (Negative) Urine Blood (Negative) Ur Leukocyte Esterase (Negative) Urine RBC (0-5) /hpf Urine WBC (0-5) /hpf Urine WBC Clumps (None) /hpf Ur Squamous Epith Cells (0-4) /hpf Urine Bacteria (None) /hpf Urine Mucus (None) /hpf Urine Yeast (Budding) (None) /hpf Microbiology - Last 24 Hours (Table) 06/17/21 03:15 Blood Culture - Preliminary Blood No Growth after 48 hours 06/17/21 03:00 Blood Culture - Preliminary Blood No Growth after 48 hours 06/18/21 16:40 Urine Culture - Preliminary Urine,Voided 06/17/21 14:35 Urine Culture - Preliminary Urine,Voided Assessment and Plan (1) Diabetic foot ulcer associated with type 2 diabetes mellitus, with fat layer exposed Current Visit: No Status: Acute Code(s): E11.621 - TYPE 2 DIABETES MELLITUS WITH FOOT ULCER; L97.502 - NON-PRS CHRONIC ULCER OTH PRT UNSP FOOT W FAT LAYER EXPOSED SNOMED Code(s): 6926212200141 (2) Diabetic ulcer of lower leg with fat layer exposed Current Visit: No Status: Acute Code(s): E11.622 - TYPE 2 DIABETES MELLITUS WITH OTHER SKIN ULCER; L97.902 - NON-PRS CHR ULC UNSP PRT OF UNSP LOW LEG W FAT LAYER EXPOSED SNOMED Code(s): 598347505 (3) Venous stasis ulcer of right lower leg with edema of right lower leg Current Visit: No Status: Acute Code(s): I83.019 - VARICOSE VEINS OF RIGHT LOWER EXTREMITY W ULCER OF UNSP SITE; I83.891 - VARICOSE VEINS OF R LOW EXTREM WITH OTHER COMPLICATIONS; L97.919 - NON-PRS CHRONIC ULC UNSP PRT OF R LOW LEG W UNSP SEVERITY; R60.9 - EDEMA, UNSPECIFIED SNOMED Code(s): 53558576359590304 (4) Pressure ulcer of right heel, stage 2 Current Visit: No Status: Acute Code(s): L89.612 - PRESSURE ULCER OF RIGHT HEEL, STAGE 2 SNOMED Code(s): 004014043 (5) Nonhealing ulcer of right lower extremity with necrosis of muscle Current Visit: No Status: Acute Code(s): L97.913 - NON-PRS CHRONIC ULC UNSP PRT OF R LOW LEG W NECROS MUSCLE SNOMED Code(s): 41203419
[2021-06-19 10:34] LABS: Calcium 7.2 mg/dL (8.4-10.2); Potassium 4.9 mmol/L (3.5-5.1)
[2021-06-19 10:56] LABS: C Reactive Protein 3.2 mg/dL (<1.0)
[2021-06-19 11:39] LABS: Glucose,Whole Blood 115 mg/dL (75-99)
[2021-06-19] MEDS: SODIUM CHLORIDE 0.9% 1,000 ML IV SCH (11:44)
[2021-06-19] MEDS ORDERED: FUROSEMIDE 10 MG/ML 4 ML VIAL IV STA (13:40)
[2021-06-19] MEDS: ONDANSETRON 4 MG TAB PO PRN (15:36)
--- NOTE | 2021-06-19 16:25 | PN ---
PROGRESS NOTE DATE OF SERVICE: 06/19/2021. FOLLOWUP: 1. Urinary tract infection. 2. Covid 19 infection. INTERVAL HISTORY: Patient is afebrile. The patient did have respiratory distress and is requiring BiPAP and non-rebreather. Complaining of shortness of breath. Denies any chest pain. She did have a cough, not bringing up any sputum. No vomiting. No abdominal pain or diarrhea. PHYSICAL EXAMINATION: Blood pressure 139/62 with a pulse of 82, temperature 98. She is 98% on bicarb drip. General description is a middle-aged female lying in bed in no distress. Respiratory system: Unlabored breathing with decreased intensity in breath sounds. Heart S1, S2. Regular rate and rhythm. Abdomen soft, no tenderness. LABS: Hemoglobin 8.4, white count 4.3, BUN of 59, creatinine is 1.82. Urine culture is currently pending. DIAGNOSTIC IMPRESSION AND PLAN: 1. Patient with acute respiratory failure secondary to Covid 19 infection. This patient currently on Dexamethasone, Lovenox, zinc and ascorbic acid support to continue. 2. Patient with urinary tract infection covered with Ertapenem while waiting for the culture to finalize. MMODL / IJN: [id number] /
--- NOTE | 2021-06-19 16:48 | P.PN ---
Subjective Progress Note Date: 06/19/21 This is a 60-year-old female patient, undergoing rehab at the [facility], following her recent hospitalization for ESBL E. coli urinary tract infection, she was discharged to [facility] with the right upper arm PICC line in place in 12 days of Invanz. Patient had hydroureter on the right side, patient underwent right ureteral stent placement on 05/25/2021. Patient Also had a recent amputation of the right big toe by Dr. Scruggs on 05/21/2021. Patient has multiple medical problems including diabetes mellitus type 2, chronic kidney disease stage III, coronary artery disease with bypass, diabetic peripheral neuropathy, chronic low back pain, impaired gait, and patient uses a motorized wheelchair at baseline, most recently she is bedbound, valvular heart disease, severe secondary pulmonary hypertension, mitral and tricuspid regurgitation. Patient was also a former smoker. She is not oxygen dependent at baseline. On 06/17/2021 when she was brought into the emergency department for evaluation of altered mentation, and hypoxia. She tested positive for COVID-19 at the alf on 06/13/2021. She is very lethargic but she is able to answer some questions, she states she has had the cough and fever since last , 05/12/2021. Was no chest x-ray obtained in the emergency department. Patient was placed on 6 L of oxygen and her pulse ox was only around 92%. He was afebrile while in the emergency department. Her admission blood work showed a white blood cell, 3.5, hemoglobin was 8.4, platelet count was 118, d-dimer came back at 1.35, sodium was 135, potassium is 4.5, there was evidence of acute on chronic kidney disease, with BUN of 51 and creatinine of 2.55, and GFR was 23, LDH was 1892, troponins were 0.032, 0.0-8, and 0.0-4, proBNP was elevated at 26,300; urinalysis showed evidence of infected urine. In the ER Patient was given IV fluid boluses, and she was placed on 0.9 normal saline at a rate of 130 ML per hour. He remains on 6 L of oxygen her pulse ox is 99%, blood pressure stable, she is afebrile, lung sounds are positive for coarse crackles throughou t. Addition patient has open wound on the back of her right calf for which she polyps at the wound care clinic, the right great big toe amputation site is clean dry and intact, sutures are intact. She has a superficial macerated area on her coccyx. Blood cultures are pending at this time. On 06/18/2021 patient seen in follow-up on selective care unit, she is sleepy, but she easily arouses to voice, she is answering questions appropriately, she states she leaks most of the time at the alf and this is her baseline. Denies any difficulty breathing, lung sounds reveal diffuse crackles bilaterally, currently she is on 8 L of oxygen and her pulse ox is 87-88%, the FiO2 was then increased to 10 L, and her pulse ox is around 90%. No coughing, no phlegm production, no chest discomfort. No fever or chills overnight, vital signs have been stable, breathing is nonlabored, yesterday's chest x-ray showed diffuse bilateral infiltrates and small pleural effusion. We'll cut back IV fl uids to 50 ML yesterday, however overnight there were increased again to 130 ML per hour, patient does have generalized edema and diffuse crackles bilaterally, given fluid boluses in the emergency department, and her proBNP was significantly elevated on admission. Today's labs have been reviewed, and her renal profile is relatively stable, with the BUN of 56 and creatinine of 2.49. Urine output is difficult to estimate as the patient is incontinent of urine and has a brief on. Patient is receiving wound care treatments to her right lower extremity posterior messer area wound, and the area of recent right great big toe amputation. No other acute events overnight. Patient is currently Invanz, ID service is following, blood and urine cultures have been sent and are pending at this time On today's evaluation on 06/19/2021 patient is seen in follow-up on selective care unit, she is currently on 15 L per high flow nasal cannula, and nonrebreather mask was added and her pulse ox on those settings were marginal around 90-91%, patient is lethargic, she appears to be in no acute respiratory distress, she easily wakes up to verbal stimulation, answers appropriately, no fever or chills, vital signs have been stable, she is mostly bed bound for the most part. She remains on Decadron 6 mg daily, she is on antibiotics in the form of Invanz for possibility of recurrent ESBL urinary tract infection, ID service is following, patient was a poor candidate for Remdesivir, she is not a candidate for bariticinib in view of ongoing bacterial infection, lung sounds are positive for scattered crackles, yesterday's chest x-ray showed diffuse bilateral infiltrates with a right-sided pleural effusion. Patient has been on IV fluids since admission. She still has 0.9 normal saline infusing at a rate of 50 ML per hour. Today's labs have been reviewed, her white blood cell count is 4.8, hemoglobin is 8.4, d-dimer is 0.92, sodium is 139, potassium is 4.0, chloride is 111, B1 is 59, creatinine is 1.82, which is improved from yesterday. No chest discomfort, she is breathing fairly comfortably, lethargic muscle time, she states it's not too far off her baseline. She sleeps for the most pa rt during the day in between meals at the [facility]. She is oriented 3, when asked about CODE STATUS she specifically said that she did not want intubation. Rapid response team was called on her this afternoon in regards to low O2 saturations however patient's respiratory status was relatively stable, there was no increased work of breathing, she was on the same amount of oxygen, she did go on BiPAP support which she is tolerating very well, and her subsequent O2 saturations did improve to 98%, she continued on all the same treatments. And she remains on selective care unit. Objective - Vital Signs Vital signs: Vital Signs Temp 98 F 06/19/21 15:06 Pulse 82 06/19/21 15:06 Resp 18 06/19/21 15:06 BP 139/62 06/19/21 15:06 Pulse Ox 98 06/19/21 15:06 Intake & Output 06/18/21 06/19/21 06/19/21 18:59 06:59 18:59 Intake Total 1237 436 Output Total 0 900 200 Balance 1237 -900 236 Weight 90.718 kg Intake: Intake, IV Titration 100 Amount Ertapenem 0.5 gm In 100 Sodium Chloride 0.9% 50 ml @ 100 mls/hr IVPB DAILY DAVIE Rx#:[id number] Oral 1137 436 Output: Urine 900 200 Post Void Residual 0 Other: Voiding Method Bedpan Indwelling Catheter # Voids 1 - Exam GENERAL EXAM: Very pleasant, 60-year-old, but arousable, 60-year-old white female, on 15 lof oxygen, and 100% nonrebreather mask, with a pulse ox of 90-91% breathing fairly comfortably, pulse ox is 88% comfortable in no apparent distress. HEAD: Normocephalic/atraumatic. EYES: Normal reaction of pupils, equal size. Conjunctiva pink, sclera white. NOSE: Clear with pink turbinates. THROAT: No erythema or exudates. NECK: No masses, no JVD, no thyroid enlargement, no adenopathy. CHEST: No chest wall deformity. Symmetrical expansion. LUNGS: Equal air entry with coarse crackles throughout CVS: Regular rate and rhythm, normal S1 and S2, no gallops, no murmurs, no rubs ABDOMEN: Soft, nontender. No hepatosplenomegaly, normal bowel sounds, no guarding or rigidity. EXTREMITIES: No clubbing, no edema, no cyanosis, 2+ pulses and upper and lower extremities. Left [id number]-[id number] amputation, right great big toe amputation site clean dry and intact, sutures clean dry and intact, reich area on the back of her right calf, bleeding, does not appear to be infected, surrounding area is extremely flaky, and dry MUSCULOSKELETAL: Muscle strength and tone normal. SPINE: No scoliosis or deformity SKIN: No rashes CENTRAL NERVOUS SYSTEM: Alert and oriented -2. No focal deficits, tone is normal in all 4 extremities. PSYCHIATRIC: Alert and oriented -2. Appropriate affect. Intact judgment and insight. - Labs CBC & Chem 7: 06/19/21 08:52 06/19/21 08:52 Labs: Abnormal Lab Results - Last 24 Hours (Table) 06/18/21 06/18/21 06/18/21 Range/Units 07:38 16:40 20:02 RBC (3.80-5.40) m/uL Hgb (11.4-16.0) gm/dL Hct (34.0-46.0) % MCHC (31.0-37.0) g/dL RDW (11.5-15.5) % Plt Count (150-450) k/uL Lymphocytes # (1.0-4.8) k/uL D-Dimer (<0.60) mg/L FEU Chloride (98-107) mmol/L BUN (7-17) mg/dL Creatinine (0.52-1.04) mg/dL Glucose (74-99) mg/dL POC Glucose (mg/dL) 177 H (75-99) mg/dL Calcium (8.4-10.2) mg/dL Lactate Dehydrogenase (313-618) U/L C-Reactive Protein (<1.0) mg/dL Procalcitonin 0.63 H (0.02-0.09) ng/mL Urine Appearance Turbid H (Clear) Urine Protein 2+ H (Negative) Urine Blood Large H (Negative) Ur Leukocyte Esterase Large H (Negative) Urine RBC >182 H (0-5) /hpf Urine WBC >182 H (0-5) /hpf Urine WBC Clumps Many H (None) /hpf Ur Squamous Epith Cells 14 H (0-4) /hpf Urine Bacteria Few H (None) /hpf Urine Mucus Many H (None) /hpf Urine Yeast (Budding) Many H (None) /hpf 06/19/21 06/19/21 06/19/21 Range/Units 06:28 08:52 08:52 RBC 3.15 L (3.80-5.40) m/uL Hgb 8.4 L (11.4-16.0) gm/dL Hct 27.1 L (34.0-46.0) % MCHC 30.8 L (31.0-37.0) g/dL RDW 18.4 H (11.5-15.5) % Plt Count 133 L (150-450) k/uL Lymphocytes # 0.2 L (1.0-4.8) k/uL D-Dimer 0.92 H (<0.60) mg/L FEU Chloride (98-107) mmol/L BUN (7-17) mg/dL Creatinine (0.52-1.04) mg/dL Glucose (74-99) mg/dL POC Glucose (mg/dL) 181 H (75-99) mg/dL Calcium (8.4-10.2) mg/dL Lactate Dehydrogenase (313-618) U/L C-Reactive Protein (<1.0) mg/dL Procalcitonin (0.02-0.09) ng/mL Urine Appearance (Clear) Urine Protein (Negative) Urine Blood (Negative) Ur Leukocyte Esterase (Negative) Urine RBC (0-5) /hpf Urine WBC (0-5) /hpf Urine WBC Clumps (None) /hpf Ur Squamous Epith Cells (0-4) /hpf Urine Bacteria (None) /hpf Urine Mucus (None) /hpf Urine Yeast (Budding) (None) /hpf 06/19/21 06/19/21 Range/Units 08:52 11:37 RBC (3.80-5.40) m/uL Hgb (11.4-16.0) gm/dL Hct (34.0-46.0) % MCHC (31.0-37.0) g/dL RDW (11.5-15.5) % Plt Count (150-450) k/uL Lymphocytes # (1.0-4.8) k/uL D-Dimer (<0.60) mg/L FEU Chloride 111 H (98-107) mmol/L BUN 59 H (7-17) mg/dL Creatinine 1.82 H (0.52-1.04) mg/dL Glucose 138 H (74-99) mg/dL POC Glucose (mg/dL) 115 H (75-99) mg/dL Calcium 7.2 L (8.4-10.2) mg/dL Lactate Dehydrogenase 2205 H (313-618) U/L C-Reactive Protein 3.2 H (<1.0) mg/dL Procalcitonin (0.02-0.09) ng/mL Urine Appearance (Clear) Urine Protein (Negative) Urine Blood (Negative) Ur Leukocyte Esterase (Negative) Urine RBC (0-5) /hpf Urine WBC (0-5) /hpf Urine WBC Clumps (None) /hpf Ur Squamous Epith Cells (0-4) /hpf Urine Bacteria (None) /hpf Urine Mucus (None) /hpf Urine Yeast (Budding) (None) /hpf Microbiology - Last 24 Hours (Table) 06/17/21 14:35 Urine Culture - Final Urine,Voided 06/17/21 03:15 Blood Culture - Preliminary Blood No Growth after 48 hours 06/17/21 03:00 Blood Culture - Preliminary Blood No Growth after 48 hours 06/18/21 16:40 Urine Culture - Preliminary Urine,Voided Assessment and Plan Plan: Assessment: #1. Acute hypoxic respiratory failure related to acute COVID-19 pneumonia, and there is a possibility of acute exacerbation of CHF with systolic dysfunction. Patient tested positive for COVID-19 on 06/13/2021 #2. Acute urinary tract infection, rule out possibility of an ESBL infection #3. Recent hospitalization for ESBL E. coli urinary tract infection #4. Recent right great big toe amputation for nonhealing wound on 05/21/2021 #5. Recent history of right hydronephrosis with ureteral stent placement on 05/25/2021 #6. Acute on chronic kidney disease #7. Valvular heart disease, with moderate MR, and moderate to severe tricuspid regurgitation, and severe pulmonary hypertension with right-sided pressure of 88.5 mmHg #8. Reported history of COPD, not oxygen dependent at baseline #9. Former smoker #10. Diabetes mellitus, with diabetic neuropathy #11. Chronic kidney disease stage III at baseline #12. Peripheral vascular disease with previous history of left [id number]-[id number] amputation #13. Nonhealing wound on the right lower leg posterior messer area, patient follows at the wound care center #14. Urinary artery disease with previous history of bypass grafting #15. Previous history of myocardial infarction #16. Rheumatoid arthritis Plan: Titrate FiO2 to maintain O2 saturations at or above 88% May use BiPAP support Continue Decadron and Lovenox IV fluids to KVO Give 1 dose of IV Lasix Follow-up d-dimer, and inflammatory markers tomorrow Continue antibiotics per ID service recommendations Not a candidate for Bariticinib in view of possibility of bacterial infection We discussed CODE STATUS with the patient who clearly states she does not want to be intubated and placed on mechanical ventilator support We'll continue supportive treatment Overall prognosis is guarded I performed a history & physical examination of the patient and discussed their management with my nurse practitioner, Kaya Sorensen. I reviewed the nurse practitioner's note and agree with the documented findings and plan of care. Lung sounds are positive for diminished breath sounds throughout the lung zambrano. The findings and the impression was discussed with the patient. I attest to the documentation by the nurse practitioner. Time with Patient: Less than 30
[2021-06-19 16:59] LABS: Glucose,Whole Blood 209 mg/dL (75-99)
--- NOTE | 2021-06-19 17:49 | CDI ---
Documentation Clarification Form Date: 06/19/2021 05:13:07 PM From: Linn Tadeo RN, CCDS Admit Date: 06/17/2021 06:04:00 AM Patient Name: Grecia Mendez Visit Number: [id number] Discharge Date: ATTENTION: The Clinical Documentation Specialists (CDI) and [facility] Coding Staff appreciate your assistance in clarifying documentation. Please respond to the clarification below the line at the bottom and electronically sign. The CDI & [facility] Coding staff will review the response and follow-up if needed. Please note: Queries are made part of the Legal Health Record. If you have any questions, please contact the author of this message via ITS. Dr. Bobby Quinones H/P and subsequent progress notes has acute kidney injury, likely ATN form sepsis and decreased oral intake. This patient has COVID-19 pneumonia. Additional clarification regarding the etiology/cause of the clinical indicators is requested. History/Risk Factors: Diabetes mellitus, hypertension, UTI, ESBL E. coli infection, COVID-19 positive on , Former smoker Clinical Indicators: 60-year-old female from ECF with hypoxia, shortness of breath, cough 06/17 WBC: 3.5, UA Large Leukocyte Esterase 06/17 Lactic acid: 0.7 06/17 Urine culture Group D Entercoccus 06/17 Blood cultures: No growth after 48 hours final result pending 06/17 03:44 Vital signs: 92.40 87 18 93 % 6/L NC, 08:25 117/74 94 21 97.7 94 % 6/L Treatment: Telemetry monitoring Monitor CBC, Lyste, BUN, CR, LDH, C Reactive Protein Daily Monitor O2 Sat's (titrate) Invanz 0.5 GM IVPB Daily Dexamethasone 6 MG IV Daily Vitamin C 500 MG PO TID 06/17 ID Consult: Presented with increasing shortness of breath hypoxemia recently diagnosed with COVID-19. Positive UA with recent urine culture positive for ESBL E. coli .9 IV Bolus: x3 (06/17) In your professional opinion, please clarify if these findings signify one of the following conditions: [ ] Sepsis due to COVID-19 POA [ ] Sepsis, Not POA [ ] Sepsis ruled out [ ] Severe Sepsis with organ failure [ ] Septic Shock [ ] Other, please specify [ ] Unable to determine SIRS Criteria: 2 or more of the following may indicate SIRS -Temperature < 96.8F (36C) or > 101.0F (38.3C) -Heart Rate > 90 bpm -Respiratory Rate > 20 breaths/min or PaCO2 < 32 mmHg -White Blood Cell Count > 12,000 or < 4,000 cells/mm3 or > 10% bands (Template Last Reviewed: November 2020) Severe Sepsis due to COVID-19, with organ failure POA MTDD
[2021-06-19 20:49] LABS: Glucose,Whole Blood 187 mg/dL (75-99)
--- NOTE | 2021-06-19 23:24 | P.PN ---
Progress Note - Text Progress Note Date: 06/19/21 Chief Complaint: Hypoxemia History of presenting complaint: This is a pleasant 60-year-old patient, visiting physicians Dr. Garcia. Chronic stable medical conditions include (above-knee amputation, chronic wound on the right lower extremity being followed by Dr. Scruggs from vascular, at the wound care center by Lauren, and also has home care. Chronic kidney disease stage III, diabetes mellitus type 2, hyperlipidemia, coronary artery disease with bypass, diabetic peripheral neuropathy, lower back pain from arthritis, uses a motorized wheelchair at baseline, severe secondary pulmonary hypertension, mitral and tricuspid regurgitation. May 10 discharged from the hospital , following debridement of the right lower extremity. Suggestion was made for amputation of the toe. Patient was seen at the wound care center on this . discharged from the hospital May 28. Patient had a acute UTI with right ureter hydronephrosis with positive blood cultures E. coli/ESBL. Underwent right big toe ray amputation by Dr. Scruggs. Also underwent stent placement to the right ureter on May [address] Van. Discharged on IV Invanz. Patient will now sent in from the ECF for becoming hypoxic. Pulse ox was in low 90s on 6 L. Patient's diet. Decreased oral intake. Shortness of breath. Some cough. Patient was positive for COVID on May 13. Because of increasing oxygen requirement patient was sent in. Patient rather tired. Patient did eat her breakfast this morning. Easily tired Admitted with COVID-19 pneumonia, acute hypoxic respiratory failure, metabolic encephalopathy. Placed on IV Decadron. Also UTI. Acute kidney injury 06/18/2021: More awake today. Eating. Shortness of breath. Nasal cannula. On IV Decadron. Lovenox increased to therapeutic dose given the increased d-dimer. Also IV Ertapenem for UTI. IV fluids. 90% on 15 L high flow oxygen 06/19/2021: Declining bed. Tired. Eating about 25%. Tired. Short of breath. 15 L of oxygen. On IV steroids. IV ertapenem for the UTI. Tired. Review of systems: Was done for constitutional, cardiovascular, GI, pulmonary. relevant finding as above Active Medications Albuterol Sulfate (Albuterol Hfa Inhaler) 2 puff INHALATION RT-Q6H PRN PRN Reason: Shortness Of Breath Or Wheezing Albuterol Sulfate (Albuterol Hfa Inhaler) 2 puff INHALATION RT-Q4H [facility] Last Admin: 06/19/21 22:06 Dose: 2 puff Documented by: Ascorbic Acid (Ascorbic Acid 500 Mg Tab) 500 mg PO TID@0800,1200,1800 [facility] Last Admin: 06/19/21 18:54 Dose: 500 mg Documented by: Calcium Carbonate (Calcium Carb-Vit D 500 Mg-5 Mcg Tab) 1 each PO DAILY@0800 [facility] Last Admin: 06/19/21 08:14 Dose: 1 each Documented by: Carvedilol (Carvedilol 3.125 Mg Tab) 3.125 mg PO BID [facility] Last Admin: 06/19/21 21:50 Dose: 3.125 mg Documented by: Cholecalciferol (Cholecalciferol 10 Mcg (400 Iu) Tablet) 10 mcg PO DAILY [facility] Last Admin: 06/19/21 08:13 Dose: 10 mcg Documented by: Clopidogrel Bisulfate (Clopidogrel 75 Mg Tab) 75 mg PO DAILY@0800 [facility] Last Admin: 06/19/21 08:14 Dose: 75 mg Documented by: Dexamethasone Sodium Phosphate (Dexamethasone Sod Phosphate 10 Mg/Ml 1 Ml Vial) 6 mg IV DAILY [facility] Last Admin: 06/19/21 08:13 Dose: 6 mg Documented by: Enoxaparin Sodium (Enoxaparin 40 Mg/0.4 Ml Syringe) 40 mg SQ DAILY [facility] Ertapenem 0.5 gm/ Sodium (Chloride) 50 mls @ 100 mls/hr IVPB DAILY [facility]; Protocol Last Admin: 06/19/21 08:12 Dose: 100 mls/hr Documented by: Sodium Chloride (Saline 0.9%) 1,000 mls @ 20 mls/hr IV .Q24H [facility] Last Admin: 06/19/21 11:44 Dose: 20 mls/hr Documented by: Insulin Aspart (Insulin Aspart (Novolog) 100 Unit/Ml Vial) 0 unit SQ ACHS [facility]; Protocol Last Admin: 06/19/21 21:50 Dose: 5 unit Documented by: Loperamide HCl (Loperamide 2 Mg Cap) 2 mg PO Q6H PRN PRN Reason: Diarrhea Multivitamins (Multivitamins, Thera 1 Each Tab) 1 each PO DAILY [facility] Last Admin: 06/19/21 08:13 Dose: 1 each Documented by: Naloxone HCl (Naloxone 0.4 Mg/Ml 1 Ml Vial) 0.2 mg IV Q2M PRN PRN Reason: Opioid Reversal Ondansetron HCl (Ondansetron 4 Mg Tab) 4 mg PO Q6H PRN PRN Reason: Nausea And Vomiting Last Admin: 06/19/21 15:36 Dose: 4 mg Documented by: Sodium Bicarbonate (Sodium Bicarbonate Tab 650 Mg Tab) 650 mg PO TID@0000, 0800,1600 [facility] Last Admin: 06/19/21 14:35 Dose: 650 mg Documented by: Tiotropium New Century (Tiotropium 2.5 Mcg Inhaler) 2 puff INHALATION RT-DAILY [facility] Last Admin: 06/19/21 10:01 Dose: 2 puff Documented by: Tramadol/Acetaminophen (Tramadol-Acetaminop 37.5-325mg 1 Each Tab) 1 each PO Q8H PRN PRN Reason: Pain Last Admin: 06/19/21 05:26 Dose: 1 each Documented by: Zinc Sulfate (Zinc Sulfate 220 Mg Cap) 220 mg PO DAILY [facility] Last Admin: 06/19/21 10:16 Dose: Not Given Documented by: Past medical history to include: Left above-knee amputation, right big toe surgery amputation chronic kidney disease stage III, diabetes mellitus, hyperlipidemia, coronary artery disease with bypass, diabetic peripheral neuropathy, lower back pain from arthritis, GERD venous stasis ulcers, peripheral neuropathy, Social history: At [facility] currently. Motorized wheelchair. Home care. She was drinking heavily of April 1991. Smoking up to 3 packs a day up to 2011. Family history: Diabetes, DC, and resume, stroke Physical examination: VITAL SIGNS: 98, 81, 20, 1 22 x 61, 91% on 15 L nonrebreather plus high flow GENERAL: reclining bed, more awake today, short of breath LUNGS: Respiratory rate increased, PSYCH: AO 3 mood and affect anxious EXTREMITIES: Left above-knee amputation. Right lower foot ray amputation with dressing, Rest of the exam per pulmonary and nursing Investigations: June 19: White count 4.8 hemoglobin 8.4 platelets 133 potassium 4.9 BUN 59 creatinine 1.8 to d-dimer 0.9 to CRP 3.2 06/18/2021: WBC 2.1 hemoglobin 8.5 platelets 104 potassium 4.9 BUN 56 creatinine 2.49 pro-calcitonin 0.63 d-dimer 1.24 WBC 3.5 hemoglobin 8.4 platelets 118 potassium 4.5 BUN 51 and creatinine 2.55 EKG tracing personally reviewed by me: Sinus rhythm, rate 81 nonspecific T-wave changes Chest x-ray film personally reviewed by me: Bilateral infiltrates Previous testin-D echocardiogram: Moderate concentric LVH. EF 45-50%. Moderate to severe tricuspid regurgitation. Severe pulmonary hypertension. 05/27/2021: BUN 29 creatinine 1.11 platelets 26 hemoglobin 10.6 Assessment and plan: -Severe COVID-19 pneumonia: Start responding Dexamethasone 6 mg daily. Subcu Lovenox. Vitamin C vitamin D zinc. -Acute hypoxic respiratory failure from COVID-19 pneumonia: Not improving On 15 L high flow oxygen -Acute metabolic encephalopathy from pneumonia: Better Follow clinically - Ray amputation of infected right big toe on May [address] Scruggs. Recently completed a course of IV Invanz. Continue wound care -Acute UTI with cystitis in a patient with recent Acute right hydronephrosis and hydroureter from right ureter stone,: right ureter stent by Dr. Van -May 25. Completed course of IV Invanz Cultures pending. Started today on IV Ertapenem -Chronic kidney disease stage III from diabetic nephropathy and nephrosclerosis Follow renal function -Acute kidney injury, likely ATN from sepsis and decreased oral intake: Slow to respond IV fluids. Follow BMP -Symptomatic Anemia of chronic kidney disease Follow H&H -Obesity BMI 34.3 Weight loss measures. Follow-up with PCP -Diabetes mellitus type 2 , diet-controlled Follow Accu-Cheks -Coronary artery disease with prior history of bypass Aspirin, Coreg, Plavix -Diabetic peripheral neuropathy -Chronic low back pain from arthritis Tylenol as needed -Chronic medical debility Uses a motorized wheelchair -Secondary severe pulmonary hypertension Follow clinically -Moderate mitral and moderate to severe tricuspid regurgitation Follow clinically -Bilateral renal calculi -Asymptomatic choledocholithiasis Continue On 15 L nasal cannula. IV dexamethasone. IV ertapenem. IV fluids. Follow labs. Discussed with the patient. Prognosis guarded
[2021-06-20] MEDS: ALBUTEROL HFA INHALER INHALATION SCH ×7 (00:20→23:50)
[2021-06-20 06:30] LABS: Glucose,Whole Blood 161 mg/dL (75-99)
[2021-06-20] MEDS: INSULIN ASPART (NovoLOG) 100 UNIT/ML VIAL SQ SCH ×4 (06:36→21:38)
[2021-06-20] MEDS: TIOTROPIUM 2.5 MCG INHALER INHALATION SCH ×2 (07:25→07:30)
[2021-06-20] MEDS: ENOXAPARIN 40 MG/0.4 ML SYRINGE SQ SCH (07:58)
[2021-06-20] MEDS: carvediloL 3.125 MG TAB PO SCH ×2 (08:01→21:38)
[2021-06-20] MEDS: ERTAPENEM 0.5 GM in SODIUM CHLORIDE 0.9% 50 ML IVPB SCH (08:01)
[2021-06-20] MEDS: CALCIUM CARB-VIT D 500 MG-5 MCG TAB PO SCH (08:01)
[2021-06-20] MEDS: CHOLECALCIFEROL 10 MCG (400 IU) TABLET PO SCH (08:01)
[2021-06-20] MEDS: ASCORBIC ACID 500 MG TAB PO SCH ×3 (08:01→17:33)
[2021-06-20] MEDS: ZINC SULFATE 220 MG CAP PO SCH (08:01)
[2021-06-20] MEDS: DEXAMETHASONE SOD PHOSPHATE 10 MG/ML 1 ML VIAL IV SCH (08:01)
[2021-06-20] MEDS: MULTIVITAMINS, THERA 1 EACH TAB PO SCH (08:01)
[2021-06-20] MEDS: CLOPIDOGREL 75 MG TAB PO SCH (08:02)
[2021-06-20] MEDS: SODIUM BICARBONATE TAB 650 MG TAB PO SCH ×3 (08:03→21:38)
--- NOTE | 2021-06-20 08:25 | XR ---
EXAMINATION TYPE: XR chest 1V portable DATE OF EXAM: 06/20/2021 COMPARISON: 06/18/2021 HISTORY: Shortness of breath TECHNIQUE: Single frontal view of the chest is obtained. FINDINGS: Diffuse interstitial pattern with bilateral infiltrate and small effusion stable. Heart en larged. Postsurgical changes noted. No pneumothorax. Osseous structures stable. IMPRESSION: Stable pleural-parenchymal changes correlate for CHF versus diffuse interstitial pneumon ia.
[2021-06-20 10:32] LABS: C Reactive Protein 3.1 mg/dL (<1.0)
[2021-06-20 12:01] LABS: Glucose,Whole Blood 144 mg/dL (75-99)
--- NOTE | 2021-06-20 13:43 | P.PN ---
Subjective Progress Note Date: 06/20/21 This is a 60-year-old female patient, undergoing rehab at the [facility], following her recent hospitalization for ESBL E. coli urinary tract infection, [facility] with the right upper arm PICC line in place in 12 days of Invanz. Patient had hydroureter on the right side, patient underwent right ureteral stent placement on 05/25/2021. Patient Also had a recent amputation of the right big toe by Dr. Scruggs on 05/21/2021. Patient has multiple medical problems including diabetes mellitus type 2, chronic kidney disease stage III, coronary artery disease with bypass, diabetic peripheral neuropathy, chronic low back pain, impaired gait, and patient uses a motorized wheelchair at baseline, most recently she is bedbound, valvular heart disease, severe secondary pulmonary hypertension, mitral and tricuspid regurgitation. Patient was also a former smoker. She is not oxygen dependent at baseline. On 06/17/2021 when she was brought into the emergency department for evaluation of altered mentation, and hypoxia. She tested positive for COVID-19 at the assisted on 06/13/2021. She is very lethargic but she is able to answer some questions, she states she has had the cough and fever since last , 05/12/2021. Was no chest x-ray obtained in the emergency department. Patient was placed on 6 L of oxygen and her pulse ox was only around 92%. He was afebrile while in the emergency department. Her admission blood work showed a white blood cell, 3.5, hemoglobin was 8.4, platelet count was 118, d-dimer came back at 1.35, sodium was 135, potassium is 4.5, there was evidence of acute on chronic kidney disease, with BUN of 51 and creatinine of 2.55, and GFR was 23, LDH was 1892, troponins were 0.032, 0.0-8, and 0.0-4, proBNP was elevated at 26,300; urinalysis showed evidence of infected urine. In the ER Patient was given IV fluid boluses, and she was placed on 0.9 normal saline at a rate of 130 ML per hour. He remains on 6 L of oxygen her pulse ox is 99%, blood pressure stable, she is afebrile, lung sounds are positive for coarse crackles throughou t. Addition patient has open wound on the back of her right calf for which she polyps at the wound care clinic, the right great big toe amputation site is clean dry and intact, sutures are intact. She has a superficial macerated area on her coccyx. Blood cultures are pending at this time. On 06/18/2021 patient seen in follow-up on selective care unit, she is sleepy, but she easily arouses to voice, she is answering questions appropriately, she states she leaks most of the time at the assisted and this is her baseline. Denies any difficulty breathing, lung sounds reveal diffuse crackles bilaterally, currently she is on 8 L of oxygen and her pulse ox is 87-88%, the FiO2 was then increased to 10 L, and her pulse ox is around 90%. No coughing, no phlegm production, no chest discomfort. No fever or chills overnight, vital signs have been stable, breathing is nonlabored, yesterday's chest x-ray showed diffuse bilateral infiltrates and small pleural effusion. We'll cut back IV fl uids to 50 ML yesterday, however overnight there were increased again to 130 ML per hour, patient does have generalized edema and diffuse crackles bilaterally, given fluid boluses in the emergency department, and her proBNP was significantly elevated on admission. Today's labs have been reviewed, and her renal profile is relatively stable, with the BUN of 56 and creatinine of 2.49. Urine output is difficult to estimate as the patient is incontinent of urine and has a brief on. Patient is receiving wound care treatments to her right lower extremity posterior messer area wound, and the area of recent right great big toe amputation. No other acute events overnight. Patient is currently Invanz, ID service is following, blood and urine cultures have been sent and are pending at this time On today's evaluation on 06/19/2021 patient is seen in follow-up on selective care unit, she is currently on 15 L per high flow nasal cannula, and nonrebreather mask was added and her pulse ox on those settings were marginal around 90-91%, patient is lethargic, she appears to be in no acute respiratory distress, she easily wakes up to verbal stimulation, answers appropriately, no fever or chills, vital signs have been stable, she is mostly bed bound for the most part. She remains on Decadron 6 mg daily, she is on antibiotics in the form of Invanz for possibility of recurrent ESBL urinary tract infection, ID service is following, patient was a poor candidate for Remdesivir, she is not a candidate for bariticinib in view of ongoing bacterial infection, lung sounds are positive for scattered crackles, yesterday's chest x-ray showed diffuse bilateral infiltrates with a right-sided pleural effusion. Patient has been on IV fluids since admission. She still has 0.9 normal saline infusing at a rate of 50 ML per hour. Today's labs have been reviewed, her white blood cell count is 4.8, hemoglobin is 8.4, d-dimer is 0.92, sodium is 139, potassium is 4.0, chloride is 111, B1 is 59, creatinine is 1.82, which is improved from yesterday. No chest discomfort, she is breathing fairly comfortably, lethargic muscle time, she states it's not too far off her baseline. She sleeps for the most pa rt during the day in between meals at the [facility]. She is oriented 3, when asked about CODE STATUS she specifically said that she did not want intubation. Rapid response team was called on her this afternoon in regards to low O2 saturations however patient's respiratory status was relatively stable, there was no increased work of breathing, she was on the same amount of oxygen, she did go on BiPAP support which she is tolerating very well, and her subsequent O2 saturations did improve to 98%, she continued on all the same treatments. And she remains on selective care unit. On today's evaluation on 06/20/2021 patient seen in follow-up on selective care unit, she is currently on BiPAP support, with pressures of 15/5, and FiO2 is currently down to 70%, her pulse ox is 92 and 93%, she is afebrile, hemodynamically she stable, she is awake and alert, complaints of chest pain, she is complaining of having a dry mouth. Does not appear to be in any acute distress. Today's chest x-ray shows stable diffuse interstitial pattern with bilateral infiltrates and small pleural effusion. She continues on Decadron, she continues on vitamins, she is on Invanz for urinary tract infection, initial urine culture has shown no growth, repeat urine culture was sent, and pending at this time, blood cultures have been negative, today's labs have been reviewed. D-dimer is 1.22, not significantly increased from yesterday, her LDH has slightly came down, and currently down to 2023, CRP is 3.1. Procalcitonin level came back at 0.63. She received a dose of IV Lasix, she is a negative fluid balance, overall oxygenation is improved, and we were able to come down on her FiO2 down to 70%. Appetite is poor, overall she is tired, she sleeps a lot. Patient does not seem to be uncomfortable, yesterday she said that she did not want to be intubated. Her CODE STATUS at this point is full code with no intubation. Objective - Vital Signs Vital signs: Vital Signs Temp 98.4 F 06/20/21 12:30 Pulse 81 06/20/21 12:30 Resp 21 06/20/21 12:30 BP 141/62 06/20/21 12:30 Pulse Ox 92 L 06/20/21 11:24 Intake & Output 06/19/21 06/20/21 06/20/21 18:59 06:59 18:59 Intake Total 436 Output Total 200 2200 625 Balance 236 -2200 -625 Intake: Oral 436 Output: Urine 200 2200 625 Other: Voiding Method Indwelling Catheter Indwelling Catheter Indwelling Catheter - Exam GENERAL EXAM: Very pleasant, 60-year-old, but arousable, 60-year-old white fem timothy, on BiPAP support with pressures of 15/5, and FiO2 of 70% with a pulse ox of 92% breathing fairly comfortably, pulse ox is 88% comfortable in no apparent distress. HEAD: Normocephalic/atraumatic. EYES: Normal reaction of pupils, equal size. Conjunctiva pink, sclera white. NOSE: Clear with pink turbinates. THROAT: No erythema or exudates. NECK: No masses, no JVD, no thyroid enlargement, no adenopathy. CHEST: No chest wall deformity. Symmetrical expansion. LUNGS: Equal air entry with coarse crackles throughout CVS: Regular rate and rhythm, normal S1 and S2, no gallops, no murmurs, no rubs ABDOMEN: Soft, nontender. No hepatosplenomegaly, normal bowel sounds, no guarding or rigidity. EXTREMITIES: No clubbing, no edema, no cyanosis, 2+ pulses and upper and lower extremities. Left [id number] amputation, right great big toe amputation site clean dry and intact, sutures clean dry and intact, reich area on the back of her right calf, bleeding, does not appear to be infected, surrounding area is extremely flaky, and dry MUSCULOSKELETAL: Muscle strength and tone normal. SPINE: No scoliosis or deformity SKIN: No rashes CENTRAL NERVOUS SYSTEM: Alert and oriented -2. No focal deficits, tone is normal in all 4 extremities. PSYCHIATRIC: Alert and oriented -2. Appropriate affect. Intact judgment and insight. - Labs CBC & Chem 7: 06/19/21 08:52 06/19/21 08:52 Labs: Abnormal Lab Results - Last 24 Hours (Table) 06/19/21 06/19/21 06/20/21 Range/Units 16:57 20:48 06:28 D-Dimer (<0.60) mg/L FEU POC Glucose (mg/dL) 209 H 187 H 161 H (75-99) mg/dL Lactate Dehydrogenase (313-618) U/L C-Reactive Protein (<1.0) mg/dL 06/20/21 06/20/21 06/20/21 Range/Units 09:06 09:06 11:50 D-Dimer 1.22 H (<0.60) mg/L FEU POC Glucose (mg/dL) 144 H (75-99) mg/dL Lactate Dehydrogenase 2024 H (313-618) U/L C-Reactive Protein 3.1 H (<1.0) mg/dL Microbiology - Last 24 Hours (Table) 06/17/21 14:35 Urine Culture - Final Urine,Voided 06/17/21 03:15 Blood Culture - Preliminary Blood No Growth after 72 hours 06/17/21 03:00 Blood Culture - Preliminary Blood No Growth after 72 hours Assessment and Plan Plan: Assessment: #1. Acute hypoxic respiratory failure related to acute COVID-19 pneumonia, and there is a possibility of acute exacerbation of CHF with systolic dysfunction. Patient tested positive for COVID-19 on 06/13/2021 #2. Acute urinary tract infection, rule out possibility of an ESBL infection, initial urine culture has shown no growth, repeat urine culture was sent and is pending at this time, patient is currently on Invanz #3. Recent hospitalization for ESBL E. coli urinary tract infection #4. Recent right great big toe amputation for nonhealing wound on 05/21/2021 #5. Recent history of right hydronephrosis with ureteral stent placement on 05/25/2021 #6. Acute on chronic kidney disease #7. Valvular heart disease, with moderate MR, and moderate to severe tricuspid regurgitation, and severe pulmonary hypertension with right-sided pressure of 88.5 mmHg #8. Reported history of COPD, not oxygen dependent at baseline #9. Former smoker #10. Diabetes mellitus, with diabetic neuropathy #11. Chronic kidney disease stage III at baseline #12. Peripheral vascular disease with previous history of left [id number] amputation #13. Nonhealing wound on the right lower leg posterior messer area, patient follows at the wound care center #14. Urinary artery disease with previous history of bypass grafting #15. Previous history of myocardial infarction #16. Rheumatoid arthritis Plan: Continue weaning FiO2 Currently down to 70% May try high flow nasal cannula or Airvo for patient comfort Continue Decadron and Lovenox IV fluids to KVO Patient has diuresed, we'll repeat electrolytes and renal function May consider repeating Lasix Follow-up d-dimer, and inflammatory markers noted D-dimer is relatively stable, inflammatory markers improved some but remained significantly elevated Continue antibiotics per ID service recommendations Not a candidate for Bariticinib in view of possibility of bacterial infection Continue supportive treatment Overall prognosis is guarded I performed a history & physical examination of the patient and discussed their management with my nurse practitioner, Kaya Sorensen. I reviewed the nurse practitioner's note and agree with the documented findings and plan of care. Lung sounds are positive for diminished breath sounds throughout the lung zambrano. The findings and the impression was discussed with the patient. I attest to the documentation by the nurse practitioner. Time with Patient: Less than 30
[2021-06-20 14:05] LABS: Calcium 7.8 mg/dL (8.4-10.2)
[2021-06-20] MEDS: SODIUM CHLORIDE 0.9% 1,000 ML IV SCH (15:27)
--- NOTE | 2021-06-20 15:36 | PN ---
PROGRESS NOTE DATE OF SERVICE: 06/20/2021 REASON FOR FOLLOWUP: Urinary tract infection and COVID-19 pneumonia. INTERVAL HISTORY: The patient is afebrile. The patient remains BiPAP-dependent. The patient denies having any worsening shortness of breath or chest pain. Occasional cough. No abdominal pain or diarrhea. PHYSICAL EXAMINATION: Blood pressure 141/62 with a pulse of 81, temperature 98.4. GENERAL DESCRIPTION: General description is a middle-aged female lying in bed in no distress. RESPIRATORY SYSTEM: Unlabored breathing. Decreased intensity of breath sounds. No wheeze. HEART: S1, S2. Regular rate and rhythm. ABDOMEN: Soft. No tenderness. LABS: BUN of 57, creatinine 1.47. Repeat urine is so far pending. DIAGNOSTIC IMPRESSION AND PLAN: 1. Patient admitted to hospital with shortness of breath, multifactorial, in this patient who did have a COVID-19 infection, currently being treated. Symptomatic and supportive care to continue. 2. Urinary tract infection with recent history of ESBL, covered with Invanz. Urine culture so far pending. MMODL / IJN: [id number] /
--- NOTE | 2021-06-20 16:17 | P.PN ---
Progress Note - Text Progress Note Date: 06/20/21 Chief Complaint: Hypoxemia History of presenting complaint: This is a pleasant 60-year-old patient, visiting physicians Dr. Garcia. Chronic stable medical conditions include (above-knee amputation, chronic wound on the right lower extremity being followed by Dr. Scruggs from vascular, at the wound care center by Lauren, and also has home care. Chronic kidney disease stage III, diabetes mellitus type 2, hyperlipidemia, coronary artery disease with bypass, diabetic peripheral neuropathy, lower back pain from arthritis, uses a motorized wheelchair at baseline, severe secondary pulmonary hypertension, mitral and tricuspid regurgitation. May 10 discharged from the hospital , following debridement of the right lower extremity. Suggestion was made for amputation of the toe. Patient was seen at the wound care center on this . discharged from the hospital May 28. Patient had a acute UTI with right ureter hydronephrosis with positive blood cultures E. coli/ESBL. Underwent right big toe ray amputation by Dr. Scruggs. Also underwent stent placement to the right ureter on May [address] Van. Discharged on IV Invanz. Patient will now sent in from the ECF for becoming hypoxic. Pulse ox was in low 90s on 6 L. Patient's diet. Decreased oral intake. Shortness of breath. Some cough. Patient was positive for COVID on May 13. Because of increasing oxygen requirement patient was sent in. Patient rather tired. Patient did eat her breakfast this morning. Easily tired Admitted with COVID-19 pneumonia, acute hypoxic respiratory failure, metabolic encephalopathy. Placed on IV Decadron. Also UTI. Acute kidney injury 06/18/2021: More awake today. Eating. Shortness of breath. Nasal cannula. On IV Decadron. Lovenox increased to therapeutic dose given the increased d-dimer. Also IV Ertapenem for UTI. IV fluids. 90% on 15 L high flow oxygen 06/19/2021: Declining bed. Tired. Eating about 25%. Tired. Short of breath. 15 L of oxygen. On IV steroids. IV ertapenem for the UTI. Tired. 06/20/2021: On BiPAP. 70%. Tired. Has not eaten today. Lethargic. Review of systems: Attempted for constitutional, cardiovascular, GI, pulmonary. relevant finding as above Active Medications Albuterol Sulfate (Albuterol Hfa Inhaler) 2 puff INHALATION RT-Q6H PRN PRN Reason: Shortness Of Breath Or Wheezing Albuterol Sulfate (Albuterol Hfa Inhaler) 2 puff INHALATION RT-Q4H [facility] Last Admin: 06/20/21 16:02 Dose: 2 puff Documented by: Ascorbic Acid (Ascorbic Acid 500 Mg Tab) 500 mg PO TID@0800,1200,1800 [facility] Last Admin: 06/20/21 12:20 Dose: 500 mg Documented by: Calcium Carbonate (Calcium Carb-Vit D 500 Mg-5 Mcg Tab) 1 each PO DAILY@0800 [facility] Last Admin: 06/20/21 08:01 Dose: 1 each Documented by: Carvedilol (Carvedilol 3.125 Mg Tab) 3.125 mg PO BID [facility] Last Admin: 06/20/21 08:01 Dose: 3.125 mg Documented by: Cholecalciferol (Cholecalciferol 10 Mcg (400 Iu) Tablet) 10 mcg PO DAILY [facility] Last Admin: 06/20/21 08:01 Dose: 10 mcg Documented by: Clopidogrel Bisulfate (Clopidogrel 75 Mg Tab) 75 mg PO DAILY@0800 [facility] Last Admin: 06/20/21 08:02 Dose: 75 mg Documented by: Dexamethasone Sodium Phosphate (Dexamethasone Sod Phosphate 10 Mg/Ml 1 Ml Vial) 6 mg IV DAILY [facility] Last Admin: 06/20/21 08:01 Dose: 6 mg Documented by: Enoxaparin Sodium (Enoxaparin 40 Mg/0.4 Ml Syringe) 40 mg SQ DAILY [facility] Last Admin: 06/20/21 07:58 Dose: 40 mg Documented by: Ertapenem 0.5 gm/ Sodium (Chloride) 50 mls @ 100 mls/hr IVPB DAILY [facility]; Protocol Last Admin: 06/20/21 08:01 Dose: 100 mls/hr Documented by: Sodium Chloride (Saline 0.9%) 1,000 mls @ 20 mls/hr IV .Q24H [facility] Last Admin: 06/20/21 15:27 Dose: 20 mls/hr Documented by: Insulin Aspart (Insulin Aspart (Novolog) 100 Unit/Ml Vial) 0 unit SQ ACHS [facility]; Protocol Last Admin: 06/20/21 12:19 Dose: 2 unit Documented by: Loperamide HCl (Loperamide 2 Mg Cap) 2 mg PO Q6H PRN PRN Reason: Diarrhea Multivitamins (Multivitamins, Thera 1 Each Tab) 1 each PO DAILY [facility] Last Admin: 06/20/21 08:01 Dose: 1 each Documented by: Naloxone HCl (Naloxone 0.4 Mg/Ml 1 Ml Vial) 0.2 mg IV Q2M PRN PRN Reason: Opioid Reversal Ondansetron HCl (Ondansetron 4 Mg Tab) 4 mg PO Q6H PRN PRN Reason: Nausea And Vomiting Last Admin: 06/19/21 15:36 Dose: 4 mg Documented by: Sodium Bicarbonate (Sodium Bicarbonate Tab 650 Mg Tab) 650 mg PO TID@0000,0800,1600 [facility] Last Admin: 06/20/21 15:28 Dose: 650 mg Documented by: Tiotropium Inglis (Tiotropium 2.5 Mcg Inhaler) 2 puff INHALATION RT-DAILY [facility] Last Admin: 06/20/21 07:30 Dose: Not Given Documented by: Tramadol/Acetaminophen (Tramadol-Acetaminop 37.5-325mg 1 Each Tab) 1 each PO Q8H PRN PRN Reason: Pain Last Admin: 06/19/21 05:26 Dose: 1 each Documented by: Zinc Sulfate (Zinc Sulfate 220 Mg Cap) 220 mg PO DAILY [facility] Last Admin: 06/20/21 08:01 Dose: 220 mg Documented by: Past medical history to include: Left above-knee amputation, right big toe surgery amputation chronic kidney disease stage III, diabetes mellitus, hyperlipidemia, coronary artery disease with bypass, diabetic peripheral neuropathy, lower back pain from arthritis, GERD venous stasis ulcers, peripheral neuropathy, Social history: At [facility] currently. Motorized wheelchair. Home care. She was drinking heavily of April 1991. Smoking up to 3 packs a day up to 2011. Family history: Diabetes, [place], and resume, stroke Physical examination: VITAL SIGNS: 98.4, 81, 21, 141/62, BiPAP on 75% GENERAL: reclining bed, lethargic, short of breath LUNGS: Respiratory rate increased, diminished breath sounds PSYCH: Lethargic but arousable EXTREMITIES: Left above-knee amputation. Right lower foot ray amputation with dressing, Rest of the exam per pulmonary and nursing Investigations: June 20: Potassium 5 BUN 57 creatinine 1.47 June 19: White count 4.8 hemoglobin 8.4 platelets 133 potassium 4.9 BUN 59 creatinine 1.8 to d-dimer 0.9 to CRP 3.2 06/18/2021: WBC 2.1 hemoglobin 8.5 platelets 104 potassium 4.9 BUN 56 creatinine 2.49 pro-calcitonin 0.63 d-dimer 1.24 WBC 3.5 hemoglobin 8.4 platelets 118 potassium 4.5 BUN 51 and creatinine 2.55 EKG tracing personally reviewed by me: Sinus rhythm, rate 81 nonspecific T-wave changes Chest x-ray film personally reviewed by me: Bilateral infiltrates Previous testin-D echocardiogram: Moderate concentric LVH. EF 45-50%. Moderate to severe tricuspid regurgitation. Severe pulmonary hypertension. 05/27/2021: BUN 29 creatinine 1.11 platelets 26 hemoglobin 10.6 Assessment and plan: -Severe COVID-19 pneumonia: Slow to respond Dexamethasone 6 mg daily. Subcu Lovenox. Vitamin C vitamin D zinc. -Acute hypoxic respiratory failure from COVID-19 pneumonia: Not improving On BiPAP at 35% -Acute metabolic encephalopathy from pneumonia: Slow to respond Follow clinically - Ray amputation of infected right big toe on May [address] Scruggs. Recently completed a course of IV Invanz. Continue wound care -Acute UTI with cystitis in a patient with recent Acute right hydronephrosis and hydroureter from right ureter stone,: right ureter stent by Dr. Van -May 25. Completed course of IV Invanz Cultures pending. IV Ertapenem -Chronic kidney disease stage III from diabetic nephropathy and nephrosclerosis Follow renal function -Acute kidney injury, likely ATN from sepsis and decreased oral intake: Improving slowly IV fluids. Creatinine 2.55 on presentation. 1.47 today -Symptomatic Anemia of chronic kidney disease Follow H&H -Obesity BMI 34.3 Weight loss measures. Follow-up with PCP -Diabetes mellitus type 2 , diet-controlled Follow Accu-Cheks -Coronary artery disease with prior history of bypass Aspirin, Coreg, Plavix -Diabetic peripheral neuropathy -Chronic low back pain from arthritis Tylenol as needed -Chronic medical debility Uses a motorized wheelchair -Secondary severe pulmonary hypertension Follow clinically -Moderate mitral and moderate to severe tricuspid regurgitation Follow clinically -Bilateral renal calculi -Asymptomatic choledocholithiasis BiPAP. IV dexamethasone. IV ertapenem. Follow labs. Prognosis guarded. Follow-up with pulmonary, ID
[2021-06-20 16:57] LABS: Glucose,Whole Blood 171 mg/dL (75-99)
[2021-06-20] MEDS: traMADol-ACETAMINOP 37.5-325MG 1 EACH TAB PO PRN (18:33)
[2021-06-20 20:08] LABS: Glucose,Whole Blood 186 mg/dL (75-99)
[2021-06-21] MEDS: ALBUTEROL HFA INHALER INHALATION SCH ×5 (05:57→18:49)
[2021-06-21 06:11] LABS: Glucose,Whole Blood 119 mg/dL (75-99)
[2021-06-21] MEDS: INSULIN ASPART (NovoLOG) 100 UNIT/ML VIAL SQ SCH ×4 (06:17→21:37)
[2021-06-21 08:32] LABS: C Reactive Protein 2.2 mg/dL (<1.0); Calcium 7.8 mg/dL (8.4-10.2)
[2021-06-21] MEDS: TIOTROPIUM 2.5 MCG INHALER INHALATION SCH (08:40)
[2021-06-21] MEDS: CHOLECALCIFEROL 10 MCG (400 IU) TABLET PO SCH (09:21)
[2021-06-21] MEDS: ASCORBIC ACID 500 MG TAB PO SCH ×3 (09:21→17:01)
[2021-06-21] MEDS: CALCIUM CARB-VIT D 500 MG-5 MCG TAB PO SCH (09:22)
[2021-06-21] MEDS: CLOPIDOGREL 75 MG TAB PO SCH (09:22)
[2021-06-21] MEDS: carvediloL 3.125 MG TAB PO SCH ×2 (09:22→21:37)
[2021-06-21] MEDS: SODIUM BICARBONATE TAB 650 MG TAB PO SCH ×2 (09:22→17:01)
[2021-06-21] MEDS: ERTAPENEM 0.5 GM in SODIUM CHLORIDE 0.9% 50 ML IVPB SCH (09:23)
[2021-06-21] MEDS: DEXAMETHASONE SOD PHOSPHATE 10 MG/ML 1 ML VIAL IV SCH (09:23)
[2021-06-21] MEDS: ENOXAPARIN 40 MG/0.4 ML SYRINGE SQ SCH (09:23)
[2021-06-21] MEDS: ZINC SULFATE 220 MG CAP PO SCH (09:24)
[2021-06-21] MEDS: MULTIVITAMINS, THERA 1 EACH TAB PO SCH (09:24)
[2021-06-21] MEDS: traMADol-ACETAMINOP 37.5-325MG 1 EACH TAB PO PRN (09:25)
[2021-06-21 12:02] LABS: Glucose,Whole Blood 123 mg/dL (75-99)
--- NOTE | 2021-06-21 12:09 | P.PN ---
Subjective Progress Note Date: 06/21/21 This is a 60-year-old female patient, undergoing rehab at the [facility], following her recent hospitalization for ESBL E. coli urinary tract infection, she was discharged to [facility] with the right upper arm PICC line in place in 12 days of Invanz. Patient had hydroureter on the right side, patient underwent right ureteral stent placement on 05/25/2021. Patient Also had a recent amputation of the right big toe by Dr. Scruggs on 05/21/2021. Patient has multiple medical problems including diabetes mellitus type 2, chronic kidney disease stage III, coronary artery disease with bypass, diabetic peripheral neuropathy, chronic low back pain, impaired gait, and patient uses a motorized wheelchair at baseline, most recently she is bedbound, valvular heart disease, severe secondary pulmonary hypertension, mitral and tricuspid regurgitation. Patient was also a former smoker. She is not oxygen dependent at baseline. On 06/17/2021 when she was brought into the emergency department for evaluation of altered mentation, and hypoxia. She tested positive for COVID-19 at the intermediate on 06/13/2021. She is very lethargic but she is able to answer some questions, she states she has had the cough and fever since last , 05/12/2021. Was no chest x-ray obtained in the emergency department. Patient was placed on 6 L of oxygen and her pulse ox was only around 92%. He was afebrile while in the emergency department. Her admission blood work showed a white blood cell, 3.5, hemoglobin was 8.4, platelet count was 118, d-dimer came back at 1.35, sodium was 135, potassium is 4.5, there was evidence of acute on chronic kidney disease, with BUN of 51 and creatinine of 2.55, and GFR was 23, LDH was 1892, troponins were 0.032, 0.0-8, and 0.0-4, proBNP was elevated at 26,300; urinalysis showed evidence of infected urine. In the ER Patient was given IV fluid boluses, and she was placed on 0.9 normal saline at a rate of 130 ML per hour. He remains on 6 L of oxygen her pulse ox is 99%, blood pressure stable, she is afebrile, lung sounds are positive for coarse crackles throughou t. Addition patient has open wound on the back of her right calf for which she polyps at the wound care clinic, the right great big toe amputation site is clean dry and intact, sutures are intact. She has a superficial macerated area on her coccyx. Blood cultures are pending at this time. On 06/18/2021 patient seen in follow-up on selective care unit, she is sleepy, but she easily arouses to voice, she is answering questions appropriately, she states she leaks most of the time at the intermediate and this is her baseline. Denies any difficulty breathing, lung sounds reveal diffuse crackles bilaterally, currently she is on 8 L of oxygen and her pulse ox is 87-88%, the FiO2 was then increased to 10 L, and her pulse ox is around 90%. No coughing, no phlegm production, no chest discomfort. No fever or chills overnight, vital signs have been stable, breathing is nonlabored, yesterday's chest x-ray showed diffuse bilateral infiltrates and small pleural effusion. We'll cut back IV fl uids to 50 ML yesterday, however overnight there were increased again to 130 ML per hour, patient does have generalized edema and diffuse crackles bilaterally, given fluid boluses in the emergency department, and her proBNP was significantly elevated on admission. Today's labs have been reviewed, and her renal profile is relatively stable, with the BUN of 56 and creatinine of 2.49. Urine output is difficult to estimate as the patient is incontinent of urine and has a brief on. Patient is receiving wound care treatments to her right lower extremity posterior messer area wound, and the area of recent right great big toe amputation. No other acute events overnight. Patient is currently Invanz, ID service is following, blood and urine cultures have been sent and are pending at this time On today's evaluation on 06/19/2021 patient is seen in follow-up on selective care unit, she is currently on 15 L per high flow nasal cannula, and nonrebreather mask was added and her pulse ox on those settings were marginal around 90-91%, patient is lethargic, she appears to be in no acute respiratory distress, she easily wakes up to verbal stimulation, answers appropriately, no fever or chills, vital signs have been stable, she is mostly bed bound for the most part. She remains on Decadron 6 mg daily, she is on antibiotics in the form of Invanz for possibility of recurrent ESBL urinary tract infection, ID service is following, patient was a poor candidate for Remdesivir, she is not a candidate for bariticinib in view of ongoing bacterial infection, lung sounds are positive for scattered crackles, yesterday's chest x-ray showed diffuse bilateral infiltrates with a right-sided pleural effusion. Patient has been on IV fluids since admission. She still has 0.9 normal saline infusing at a rate of 50 ML per hour. Today's labs have been reviewed, her white blood cell count is 4.8, hemoglobin is 8.4, d-dimer is 0.92, sodium is 139, potassium is 4.0, chloride is 111, B1 is 59, creatinine is 1.82, which is improved from yesterday. No chest discomfort, she is breathing fairly comfortably, lethargic muscle time, she states it's not too far off her baseline. She sleeps for the most pa rt during the day in between meals at the [facility]. She is oriented 3, when asked about CODE STATUS she specifically said that she did not want intubation. Rapid response team was called on her this afternoon in regards to low O2 saturations however patient's respiratory status was relatively stable, there was no increased work of breathing, she was on the same amount of oxygen, she did go on BiPAP support which she is tolerating very well, and her subsequent O2 saturations did improve to 98%, she continued on all the same treatments. And she remains on selective care unit. On today's evaluation on 06/20/2021 patient seen in follow-up on selective care unit, she is currently on BiPAP support, with pressures of 15/5, and FiO2 is currently down to 70%, her pulse ox is 92 and 93%, she is afebrile, hemodynamically she stable, she is awake and alert, complaints of chest pain, she is complaining of having a dry mouth. Does not appear to be in any acute distress. Today's chest x-ray shows stable diffuse interstitial pattern with bilateral infiltrates and small pleural effusion. She continues on Decadron, she continues on vitamins, she is on Invanz for urinary tract infection, initial urine culture has shown no growth, repeat urine culture was sent, and pending at this time, blood cultures have been negative, today's labs have been reviewed. D-dimer is 1.22, not significantly increased from yesterday, her LDH has slightly came down, and currently down to 2023, CRP is 3.1. Procalcitonin level came back at 0.63. She received a dose of IV Lasix, she is a negative fluid balance, overall oxygenation is improved, and we were able to come down on her FiO2 down to 70%. Appetite is poor, overall she is tired, she sleeps a lot. Patient does not seem to be uncomfortable, yesterday she said that she did not want to be intubated. Her CODE STATUS at this point is full code with no intubation. On today's evaluation on 06/21/2021 patient seen in follow-up on selective care unit, she remains on BiPAP support with pressures of 15/5, and FiO2 of 95%. Apparently when the mask is removed she rapidly desaturates to 50% even when the mask is off very briefly for her to take a sip of water take medications, at this time she is very BiPAP dependent. She denies any chest pain, she has been afebrile. Hemodynamically she has been stable. She is on 0.9 normal saline at a rate of 20 ML per hour, she has not been able to take in much in the way of oral intake related to the fact that she is BiPAP dependent. Yesterday's chest x-ray shows diffuse interstitial pattern with bilateral infiltrates and small pleural effusion. Patient continues on Decadron, she is on Invanz for wrist history of ESBL E. coli, her urine culture from September admission is showing enterococcus faecium and Jeimy albicans. ID service is following and managing the antibiotics. Objective - Vital Signs Vital signs: Vital Signs Temp 98.2 F 06/21/21 08:00 Pulse 81 06/21/21 08:00 Resp 26 H 06/21/21 08:05 BP 144/65 06/21/21 08:00 Pulse Ox 90 L 06/21/21 08:31 Intake & Output 06/20/21 06/21/21 06/21/21 18:59 06:59 18:59 Intake Total 120 Output Total 1175 320 650 Balance -1055 -320 -650 Weight 90.718 kg Intake: Oral 120 Output: Urine 1175 320 650 Other: Voiding Method Indwelling Catheter Indwelling Catheter Indwelling Catheter - Exam GENERAL EXAM: Very pleasant, 60-year-old, but arousable, 60-year-old white female, on BiPAP support with pressures of 15/5, and FiO2 of 90% with a pulse ox of 92% breathing fairly comfortably in no apparent distress. HEAD: Normocephalic/atraumatic. EYES: Normal reaction of pupils, equal size. Conjunctiva pink, sclera white. NOSE: Clear with pink turbinates. THROAT: No erythema or exudates. NECK: No masses, no JVD, no thyroid enlargement, no adenopathy. CHEST: No chest wall deformity. Symmetrical expansion. LUNGS: Equal air entry with coarse crackles throughout CVS: Regular rate and rhythm, normal S1 and S2, no gallops, no murmurs, no rubs ABDOMEN: Soft, nontender. No hepatosplenomegaly, normal bowel sounds, no guarding or rigidity. EXTREMITIES: No clubbing, no edema, no cyanosis, 2+ pulses and upper and lower extremities. Left [id number] amputation, right great big toe amputation site clean dry and intact, sutures clean dry and intact, reich area on the back of her right calf, bleeding, does not appear to be infected, surrounding area is extremely flaky, and dry MUSCULOSKELETAL: Muscle strength and tone normal. SPINE: No scoliosis or deformity SKIN: No rashes CENTRAL NERVOUS SYSTEM: Alert and oriented -2. No focal deficits, tone is normal in all 4 extremities. PSYCHIATRIC: Alert and oriented -2. Appropriate affect. Intact judgment and insight. - Labs CBC & Chem 7: 06/19/21 08:52 06/21/21 07:22 Labs: Abnormal Lab Results - Last 24 Hours (Table) 06/20/21 06/20/21 06/20/21 Range/Units 12:47 16:55 20:07 D-Dimer (<0.60) mg/L FEU Chloride 111 H (98-107) mmol/L BUN 57 H (7-17) mg/dL Creatinine 1.47 H (0.52-1.04) mg/dL Glucose 141 H (74-99) mg/dL POC Glucose (mg/dL) 171 H 186 H (75-99) mg/dL Calcium 7.8 L (8.4-10.2) mg/dL C-Reactive Protein (<1.0) mg/dL 06/21/21 06/21/21 06/21/21 Range/Units 06:10 07:22 07:22 D-Dimer 2.99 H (<0.60) mg/L FEU Chloride 112 H (98-107) mmol/L BUN 53 H (7-17) mg/dL Creatinine 1.21 H (0.52-1.04) mg/dL Glucose 107 H (74-99) mg/dL POC Glucose (mg/dL) 119 H (75-99) mg/dL Calcium 7.8 L (8.4-10.2) mg/dL C-Reactive Protein 2.2 H (<1.0) mg/dL 06/21/21 Range/Units 12:00 D-Dimer (<0.60) mg/L FEU Chloride (98-107) mmol/L BUN (7-17) mg/dL Creatinine (0.52-1.04) mg/dL Glucose (74-99) mg/dL POC Glucose (mg/dL) 123 H (75-99) mg/dL Calcium (8.4-10.2) mg/dL C-Reactive Protein (<1.0) mg/dL Microbiology - Last 24 Hours (Table) 06/17/21 03:00 Blood Culture - Preliminary Blood No Growth after 96 hours 06/17/21 03:15 Blood Culture - Preliminary Blood No Growth after 96 hours 06/18/21 16:40 Urine Culture - Final Urine,Voided Enterococcus faecium VRE Jeimy albicans 06/17/21 14:35 Urine Culture - Final Urine,Voided Assessment and Plan Plan: Assessment: #1. Acute hypoxic respiratory failure related to acute COVID-19 pneumonia, and there is a possibility of acute exacerbation of CHF with systolic dysfunction. Patient tested positive for COVID-19 on 06/13/2021 #2. Acute urinary tract infection, rule out possibility of an ESBL infection, initial urine culture has shown no growth, repeat urine culture was sent and is pending at this time, patient is currently on Invanz. Urine culture is positive for VRE enterococcus faecium #3. Recent hospitalization for ESBL E. coli urinary tract infection #4. Recent right great big toe amputation for nonhealing wound on 05/21/2021 #5. Recent history of right hydronephrosis with ureteral stent placement on 05/25/2021 #6. Acute on chronic kidney disease #7. Valvular heart disease, with moderate MR, and moderate to severe tricuspid regurgitation, and severe pulmonary hypertension with right-sided pressure of 88.5 mmHg #8. Reported history of COPD, not oxygen dependent at baseline #9. Former smoker #10. Diabetes mellitus, with diabetic neuropathy #11. Chronic kidney disease stage III at baseline #12. Peripheral vascular disease with previous history of left [id number] amputation #13. Nonhealing wound on the right lower leg posterior messer area, patient follows at the wound care center #14. Urinary artery disease with previous history of bypass grafting #15. Previous history of myocardial infarction #16. Rheumatoid arthritis Plan: Patient is BiPAP dependent at this time She has required BiPAP support pretty much continuously FiO2 was up to 90%, and is currently back down to 70% She desaturates quite rapidly to low 50s when the mask is removed May try high flow nasal cannula or Airvo for patient comfort if the patient tolerates Continue Decadron and Lovenox IV fluids to KVO We'll hold off on repeat dose of Lasix Patient has had poor oral intake Follow-up d-dimer, and inflammatory markers noted Continue antibiotics per ID service recommendations Not a candidate for Bariticinib in view of possibility of bacterial infection Continue supportive treatment Overall prognosis is guarded I performed a history & physical examination of the patient and discussed their management with my nurse practitioner, Kaya Sorensen. I reviewed the nurse practitioner's note and agree with the documented findings and plan of care. Lung sounds are positive for diminished breath sounds throughout the lung zambrano. The findings and the impression was discussed with the patient. I attest to the documentation by the nurse practitioner. Time with Patient: Less than 30
--- NOTE | 2021-06-21 15:53 | P.PN ---
Progress Note - Text Progress Note Date: 06/21/21 Chief Complaint: Hypoxemia History of presenting complaint: This is a pleasant 60-year-old patient, visiting physicians Dr. Garcia. Chronic stable medical conditions include (above-knee amputation, chronic wound on the right lower extremity being followed by Dr. Scruggs from vascular, at the wound care center by Lauren, and also has home care. Chronic kidney disease stage III, diabetes mellitus type 2, hyperlipidemia, coronary artery disease with bypass, diabetic peripheral neuropathy, lower back pain from arthritis, uses a motorized wheelchair at baseline, severe secondary pulmonary hypertension, mitral and tricuspid regurgitation. May 10 discharged from the hospital , following debridement of the right lower extremity. Suggestion was made for amputation of the toe. Patient was seen at the wound care center on this . discharged from the hospital May 28. Patient had a acute UTI with right ureter hydronephrosis with positive blood cultures E. coli/ESBL. Underwent right big toe ray amputation by Dr. Scruggs. Also underwent stent placement to the right ureter on May [address] Van. Discharged on IV Invanz. Patient will now sent in from the ECF for becoming hypoxic. Pulse ox was in low 90s on 6 L. Patient's diet. Decreased oral intake. Shortness of breath. Some cough. Patient was positive for COVID on May 13. Because of increasing oxygen requirement patient was sent in. Patient rather tired. Patient did eat her breakfast this morning. Easily tired Admitted with COVID-19 pneumonia, acute hypoxic respiratory failure, metabolic encephalopathy. Placed on IV Decadron. Also UTI. Acute kidney injury 06/18/2021: More awake today. Eating. Shortness of breath. Nasal cannula. On IV Decadron. Lovenox increased to therapeutic dose given the increased d-dimer. Also IV Ertapenem for UTI. IV fluids. 90% on 15 L high flow oxygen 06/19/2021: Declining bed. Tired. Eating about 25%. Tired. Short of breath. 15 L of oxygen. On IV steroids. IV ertapenem for the UTI. Tired. 06/20/2021: On BiPAP. 70%. Tired. Has not eaten today. Lethargic. June 21: On BiPAP. Short of breath. Diet. Unable to eat. Anxious. IV dexamethasone. IV ertapenem. Review of systems: Attempted for constitutional, cardiovascular, GI, pulmonary. relevant finding as above Active Medications Albuterol Sulfate (Albuterol Hfa Inhaler) 2 puff INHALATION RT-Q6H PRN PRN Reason: Shortness Of Breath Or Wheezing Albuterol Sulfate (Albuterol Hfa Inhaler) 2 puff INHALATION RT-Q4H [facility] Last Admin: 06/21/21 15:19 Dose: 2 puff Documented by: Ascorbic Acid (Ascorbic Acid 500 Mg Tab) 500 mg PO TID@0800,1200,1800 [facility] Last Admin: 06/21/21 11:13 Dose: Not Given Documented by: Calcium Carbonate (Calcium Carb-Vit D 500 Mg-5 Mcg Tab) 1 each PO DAILY@0800 [facility] Last Admin: 06/21/21 09:22 Dose: 1 each Documented by: Carvedilol (Carvedilol 3.125 Mg Tab) 3.125 mg PO BID [facility] Last Admin: 06/21/21 09:22 Dose: 3.125 mg Documented by: Cholecalciferol (Cholecalciferol 10 Mcg (400 Iu) Tablet) 10 mcg PO DAILY [facility] Last Admin: 06/21/21 09:21 Dose: 10 mcg Documented by: Clopidogrel Bisulfate (Clopidogrel 75 Mg Tab) 75 mg PO DAILY@0800 [facility] Last Admin: 06/21/21 09:22 Dose: 75 mg Documented by: Dexamethasone Sodium Phosphate (Dexamethasone Sod Phosphate 10 Mg/Ml 1 Ml Vial) 6 mg IV DAILY [facility] Last Admin: 06/21/21 09:23 Dose: 6 mg Documented by: Enoxaparin Sodium (Enoxaparin 40 Mg/0.4 Ml Syringe) 40 mg SQ DAILY [facility] Last Admin: 06/21/21 09:23 Dose: 40 mg Documented by: Ertapenem 0.5 gm/ Sodium (Chloride) 50 mls @ 100 mls/hr IVPB DAILY [facility]; Protocol Last Admin: 06/21/21 09:23 Dose: 100 mls/hr Documented by: Sodium Chloride (Saline 0.9%) 1,000 mls @ 20 mls/hr IV .Q24H [facility] Last Admin: 06/20/21 15:27 Dose: 20 mls/hr Documented by: Insulin Aspart (Insulin Aspart (Novolog) 100 Unit/Ml Vial) 0 unit SQ ACHS [facility]; Protocol Last Admin: 06/21/21 12:17 Dose: Not Given Documented by: Loperamide HCl (Loperamide 2 Mg Cap) 2 mg PO Q6H PRN PRN Reason: Diarrhea Multivitamins (Multivitamins, Thera 1 Each Tab) 1 each PO DAILY [facility] Last Admin: 06/21/21 09:24 Dose: 1 each Documented by: Naloxone HCl (Naloxone 0.4 Mg/Ml 1 Ml Vial) 0.2 mg IV Q2M PRN PRN Reason: Opioid Reversal Ondansetron HCl (Ondansetron 4 Mg Tab) 4 mg PO Q6H PRN PRN Reason: Nausea And Vomiting Last Admin: 06/19/21 15:36 Dose: 4 mg Documented by: Sodium Bicarbonate (Sodium Bicarbonate Tab 650 Mg Tab) 650 mg PO TID@0000,0800,1600 [facility] Last Admin: 06/21/21 09:22 Dose: 650 mg Documented by: Tiotropium [place] (Tiotropium 2.5 Mcg Inhaler) 2 puff INHALATION RT-DAILY [facility] Last Admin: 06/21/21 08:40 Dose: Not Given Documented by: Tramadol/Acetaminophen (Tramadol-Acetaminop 37.5-325mg 1 Each Tab) 1 each PO Q8H PRN PRN Reason: Pain Last Admin: 06/21/21 09:25 Dose: 1 each Documented by: Zinc Sulfate (Zinc Sulfate 220 Mg Cap) 220 mg PO DAILY [facility] Last Admin: 06/21/21 09:24 Dose: 220 mg Documented by: Past medical history to include: Left above-knee amputation, right big toe surgery amputation chronic kidney disease stage III, diabetes mellitus, hyperlipidemia, coronary artery disease with bypass, diabetic peripheral neuropathy, lower back pain from arthritis, GERD venous stasis ulcers, peripheral neuropathy, Social history: At [facility] currently. Motorized wheelchair. Home care. She was drinking heavily of April 1991. Smoking up to 3 packs a day up to 2011. Family history: Diabetes, [place], and resume, stroke Physical examination: VITAL SIGNS: 98.4, 93, 25, 1 42 x 67, 85% on BiPAP at 70% GENERAL: reclining bed, anxious short of breath LUNGS: Respiratory rate increased, PSYCH: Anxious, answering questions EXTREMITIES: Left above-knee amputation. Right lower foot ray amputation with dressing, Rest of the exam per pulmonary and nursing Investigations: June 21: D-dimer 2.99 potassium 5 BUN 53 creatinine 1.21 CRP 2.2 June 20: Potassium 5 BUN 57 creatinine 1.47 June 19: White count 4.8 hemoglobin 8.4 platelets 133 potassium 4.9 BUN 59 creatinine 1.8 to d-dimer 0.9 to CRP 3.2 06/18/2021: WBC 2.1 hemoglobin 8.5 platelets 104 potassium 4.9 BUN 56 creatinine 2.49 pro-calcitonin 0.63 d-dimer 1.24 WBC 3.5 hemoglobin 8.4 platelets 118 potassium 4.5 BUN 51 and creatinine 2.55 EKG tracing personally reviewed by me: Sinus rhythm, rate 81 nonspecific T-wave changes Chest x-ray film personally reviewed by me: Bilateral infiltrates Previous testin-D echocardiogram: Moderate concentric LVH. EF 45-50%. Moderate to severe tricuspid regurgitation. Severe pulmonary hypertension. 05/27/2021: BUN 29 creatinine 1.11 platelets 26 hemoglobin 10.6 Assessment and plan: -Severe COVID-19 pneumonia: Slow to respond Dexamethasone 6 mg daily. Subcu Lovenox. Vitamin C vitamin D zinc. -Acute hypoxic respiratory failure from COVID-19 pneumonia: Not improving On BiPAP at 70 % -Acute metabolic encephalopathy from pneumonia: Slow to respond Follow clinically - Ray amputation of infected right big toe on May [address] Scruggs. Recently completed a course of IV Invanz. Continue wound care -Acute UTI with cystitis in a patient with recent Acute right hydronephrosis and hydroureter from right ureter stone,: right ureter stent by Dr. Van -May 25. Completed course of IV Invanz Cultures pending. IV Ertapenem -Chronic kidney disease stage III from diabetic nephropathy and nephrosclerosis Follow renal function -Acute kidney injury, likely ATN from sepsis and decreased oral intake: Improving slowly IV fluids. Creatinine 2.55 on presentation. 1.47 today -Symptomatic Anemia of chronic kidney disease Follow H&H -Obesity BMI 34.3 Weight loss measures. Follow-up with PCP -Diabetes mellitus type 2 , diet-controlled Follow Accu-Cheks -Coronary artery disease with prior history of bypass Aspirin, Coreg, Plavix -Diabetic peripheral neuropathy -Chronic low back pain from arthritis Tylenol as needed -Chronic medical debility Uses a motorized wheelchair -Secondary severe pulmonary hypertension Follow clinically -Moderate mitral and moderate to severe tricuspid regurgitation Follow clinically -Bilateral renal calculi -Asymptomatic choledocholithiasis BiPAP. IV dexamethasone. IV ertapenem. On BiPAP 70%. Prognosis guarded. Follow-up with pulmonary.
[2021-06-21 16:59] LABS: Glucose,Whole Blood 185 mg/dL (75-99)
[2021-06-21] MEDS: SODIUM CHLORIDE 0.9% 1,000 ML IV SCH (17:22)
[2021-06-21 20:04] LABS: Glucose,Whole Blood 152 mg/dL (75-99)
[2021-06-21 23:27] LABS: Amorphous Sediment,Urine Rare /hpf; Appearance,Urine Cloudy (Clear); Bilirubin,Urine Negative (Negative); Blood,Urine Large (Negative); Budding Yeast,Urine Many /hpf; Color,Urine Yellow; Glucose,Urine (UA) Negative (Negative); Hyphae Yeast, Urine Many /hpf; Ketones,Urine Negative (Negative); Leukocyte Esterase,Urine Large (Negative); Mucus,Urine Rare /hpf; Nitrite,Urine Negative (Negative); PH, Urine 5.5 (5.0-8.0); Protein,Urine 1+ (Negative); RBC,Urine >182 /hpf (0-5); Specific Gravity,Urine 1.016 (1.001-1.035); Squamous Epithelial Cell,Urine 1 /hpf (0-4); Urobilinogen,Urine <2.0 mg/dL (<2.0); WBC,Urine >182 /hpf (0-5)
[2021-06-22] MEDS: ALBUTEROL HFA INHALER INHALATION SCH ×7 (01:19→23:36)
[2021-06-22] MEDS: SODIUM BICARBONATE TAB 650 MG TAB PO SCH ×4 (01:26→23:27)
[2021-06-22] MEDS: INSULIN ASPART (NovoLOG) 100 UNIT/ML VIAL SQ SCH ×4 (06:12→21:24)
[2021-06-22 06:14] LABS: Glucose,Whole Blood 113 mg/dL (75-99)
--- NOTE | 2021-06-22 07:14 | PN ---
PROGRESS NOTE DATE OF SERVICE: 06/21/2021 REASON FOR FOLLOWUP: 1. Urinary tract infection. 2. Covid 19 pneumonia. INTERVAL HISTORY: The patient is afebrile. She has been breathing slightly comfortably, still requiring BIPAP though. No chest pain or worsening cough. No abdominal pain. No diarrhea. PHYSICAL EXAMINATION: Blood pressure is 155/72 with a pulse of 84, temperature 97.7. She is 94% on 75% FIO2. General description is a middle-aged female lying in bed in no distress. Respiratory system: Unlabored breathing, decreased intensity of breath sounds. No wheeze. Heart S1, S2. Regular rate and rhythm. Abdomen soft, no tenderness. LABS: BUN of 53, creatinine is 1.21. Urine now showing a VRE. DIAGNOSTIC IMPRESSION AND PLAN: 1. Patient admitted to the hospital with shortness of breath, hypoxemia secondary Covid 19 infection currently on supportive treatment to continue. 2. Patient with urinary tract infection. Urine is now showing a VRE. Discontinue Invanz. Start the patient on daptomycin. Repeat urine and continue supportive care. MMODL / IJN: [id number] /
[2021-06-22] MEDS: TIOTROPIUM 2.5 MCG INHALER INHALATION SCH ×2 (08:40→08:46)
[2021-06-22] MEDS: DEXAMETHASONE SOD PHOSPHATE 10 MG/ML 1 ML VIAL IV SCH (08:44)
[2021-06-22] MEDS: ENOXAPARIN 40 MG/0.4 ML SYRINGE SQ SCH (08:44)
[2021-06-22] MEDS: ASCORBIC ACID 500 MG TAB PO SCH ×3 (09:31→17:27)
[2021-06-22] MEDS: CLOPIDOGREL 75 MG TAB PO SCH (09:31)
[2021-06-22] MEDS: CALCIUM CARB-VIT D 500 MG-5 MCG TAB PO SCH (09:31)
[2021-06-22] MEDS: carvediloL 3.125 MG TAB PO SCH ×2 (09:32→23:27)
[2021-06-22] MEDS: MULTIVITAMINS, THERA 1 EACH TAB PO SCH (09:32)
[2021-06-22] MEDS: ZINC SULFATE 220 MG CAP PO SCH (09:32)
[2021-06-22] MEDS: CHOLECALCIFEROL 10 MCG (400 IU) TABLET PO SCH (09:32)
[2021-06-22 11:35] LABS: Glucose,Whole Blood 132 mg/dL (75-99)
[2021-06-22] MEDS: ALPRAZolam 0.25 MG TAB PO SCH ×3 (12:16→23:28)
--- NOTE | 2021-06-22 13:07 | P.PN ---
Subjective Progress Note Date: 06/22/21 This is a 60-year-old female patient, undergoing rehab at the [facility], following her recent hospitalization for ESBL E. coli urinary tract infection, she was discharged to [facility] with the right upper arm PICC line in place in 12 days of Invanz. Patient had hydroureter on the right side, patient underwent right ureteral stent placement on 05/25/2021. Patient Also had a recent amputation of the right big toe by Dr. Scruggs on 05/21/2021. Patient has multiple medical problems including diabetes mellitus type 2, chronic kidney disease stage III, coronary artery disease with bypass, diabetic peripheral neuropathy, chronic low back pain, impaired gait, and patient uses a motorized wheelchair at baseline, most recently she is bedbound, valvular heart disease, severe secondary pulmonary hypertension, mitral and tricuspid regurgitation. Patient was also a former smoker. She is not oxygen dependent at baseline. On 06/17/2021 when she was brought into the emergency department for evaluation of altered mentation, and hypoxia. [facility]. She is very lethargic but she is able to answer some questions, she states she has had the cough and fever since last , 05/12/2021. Was no chest x-ray obtained in the emergency department. Patient was placed on 6 L of oxygen and her pulse ox was only around 92%. He was afebrile while in the emergency department. Her admission blood work showed a white blood cell, 3.5, hemoglobin was 8.4, platelet count was 118, d-dimer came back at 1.35, sodium was 135, potassium is 4.5, there was evidence of acute on chronic kidney disease, with BUN of 51 and creatinine of 2.55, and GFR was 23, LDH was 1892, troponins were 0.032, 0.0-8, and 0.0-4, proBNP was elevated at 26,300; urinalysis showed evidence of infected urine. In the ER Patient was given IV fluid boluses, and she was placed on 0.9 normal saline at a rate of 130 ML per hour. He remains on 6 L of oxygen her pulse ox is 99%, blood pressure stable, she is afebrile, lung sounds are positive for coarse crackles throughou t. Addition patient has open wound on the back of her right calf for which she polyps at the wound care clinic, the right great big toe amputation site is clean dry and intact, sutures are intact. She has a superficial macerated area on her coccyx. Blood cultures are pending at this time. On 06/18/2021 patient seen in follow-up on selective care unit, she is sleepy, but she easily arouses to voice, she is answering questions appropriately, she states she leaks [facility] and this is her baseline. Denies any difficulty breathing, lung sounds reveal diffuse crackles bilaterally, currently she is on 8 L of oxygen and her pulse ox is 87-88%, the FiO2 was then increased to 10 L, and her pulse ox is around 90%. No coughing, no phlegm production, no chest discomfort. No fever or chills overnight, vital signs have been stable, breathing is nonlabored, yesterday's chest x-ray showed diffuse bilateral infiltrates and small pleural effusion. We'll cut back IV fl uids to 50 ML yesterday, however overnight there were increased again to 130 ML per hour, patient does have generalized edema and diffuse crackles bilaterally, given fluid boluses in the emergency department, and her proBNP was significantly elevated on admission. Today's labs have been reviewed, and her renal profile is relatively stable, with the BUN of 56 and creatinine of 2.49. Urine output is difficult to estimate as the patient is incontinent of urine and has a brief on. Patient is receiving wound care treatments to her right lower extremity posterior messer area wound, and the area of recent right great big toe amputation. No other acute events overnight. Patient is currently Invanz, ID service is following, blood and urine cultures have been sent and are pending at this time On today's evaluation on 06/19/2021 patient is seen in follow-up on selective care unit, she is currently on 15 L per high flow nasal cannula, and nonrebreather mask was added and her pulse ox on those settings were marginal around 90-91%, patient is lethargic, she appears to be in no acute respiratory distress, she easily wakes up to verbal stimulation, answers appropriately, no fever or chills, vital signs have been stable, she is mostly bed bound for the most part. She remains on Decadron 6 mg daily, she is on antibiotics in the form of Invanz for possibility of recurrent ESBL urinary tract infection, ID service is following, patient was a poor candidate for Remdesivir, she is not a candidate for bariticinib in view of ongoing bacterial infection, lung sounds are positive for scattered crackles, yesterday's chest x-ray showed diffuse bilateral infiltrates with a right-sided pleural effusion. Patient has been on IV fluids since admission. She still has 0.9 normal saline infusing at a rate of 50 ML per hour. Today's labs have been reviewed, her white blood cell count is 4.8, hemoglobin is 8.4, d-dimer is 0.92, sodium is 139, potassium is 4.0, chloride is 111, B1 is 59, creatinine is 1.82, which is improved from yesterday. No chest discomfort, she is breathing fairly comfortably, lethargic muscle time, she states it's not too far off her baseline. She sleeps for the most pa rt during the day in between meals at the [facility]. She is oriented 3, when asked about CODE STATUS she specifically said that she did not want intubation. Rapid response team was called on her this afternoon in regards to low O2 saturations however patient's respiratory status was relatively stable, there was no increased work of breathing, she was on the same amount of oxygen, she did go on BiPAP support which she is tolerating very well, and her subsequent O2 saturations did improve to 98%, she continued on all the same treatments. And she remains on selective care unit. On today's evaluation on 06/20/2021 patient seen in follow-up on selective care unit, she is currently on BiPAP support, with pressures of 15/5, and FiO2 is currently down to 70%, her pulse ox is 92 and 93%, she is afebrile, hemodynamically she stable, she is awake and alert, complaints of chest pain, she is complaining of having a dry mouth. Does not appear to be in any acute distress. Today's chest x-ray shows stable diffuse interstitial pattern with bilateral infiltrates and small pleural effusion. She continues on Decadron, she continues on vitamins, she is on Invanz for urinary tract infection, initial urine culture has shown no growth, repeat urine culture was sent, and pending at this time, blood cultures have been negative, today's labs have been reviewed. D-dimer is 1.22, not significantly increased from yesterday, her LDH has slightly came down, and currently down to 2023, CRP is 3.1. Procalcitonin level came back at 0.63. She received a dose of IV Lasix, she is a negative fluid balance, overall oxygenation is improved, and we were able to come down on her FiO2 down to 70%. Appetite is poor, overall she is tired, she sleeps a lot. Patient does not seem to be uncomfortable, yesterday she said that she did not want to be intubated. Her CODE STATUS at this point is full code with no intubation. On today's evaluation on 06/21/2021 patient seen in follow-up on selective care unit, she remains on BiPAP support with pressures of 15/5, and FiO2 of 95%. Apparently when the mask is removed she rapidly desaturates to 50% even when the mask is off very briefly for her to take a sip of water take medications, at this time she is very BiPAP dependent. She denies any chest pain, she has been afebrile. Hemodynamically she has been stable. She is on 0.9 normal saline at a rate of 20 ML per hour, she has not been able to take in much in the way of oral intake related to the fact that she is BiPAP dependent. Yesterday's chest x-ray shows diffuse interstitial pattern with bilateral infiltrates and small pleural effusion. Patient continues on Decadron, she is on Invanz for wrist history of ESBL E. coli, her urine culture from September admission is showing enterococcus faecium and Jeimy albicans. ID service is following and managing the antibiotics. On 06/22/2021 patient seen in follow-up on selective care unit, nursing reports that she's been pretty much BiPAP dependent, she easily desaturates when the mask is removed, she has remained on BiPAP support. He much continuously, with pressures of 15/5, and FiO2 is currently down to 75%, pulse ox is 93%, low-grade fever today, with a temp of 100.1F, however appears to be in no acute respiratory distress. She is very thirsty, she is asking for drink, she has not been able to take in much in the way of oral intake related to continue his BiPAP support, nursing reports that they have not given her a trial of high flow nasal cannula yet even for short periods of time. She denies any chest discomfort, she remains on Decadron 6 mg daily for COVID-19 pneumonia, she is also on antibiotics currently on daptomycin, Invanz was discontinued, urine culture was positive for vancomycin-resistant enterococcus faecium. Blood cultures have been negative. Objective - Vital Signs Vital signs: Vital Signs Temp 100.1 F H 06/22/21 12:00 Pulse 94 06/22/21 12:00 Resp 36 H 06/22/21 12:00 BP 143/69 06/22/21 12:00 Pulse Ox 93 L 06/22/21 12:00 Intake & Output 06/21/21 06/22/21 06/22/21 18:59 06:59 18:59 Intake Total 210 Output Total 1230 1340 200 Balance -1020 -1340 -200 Weight 91 kg Intake: Intake, IV Titration 210 Amount Ertapenem 0.5 gm In 50 Sodium Chloride 0.9% 50 ml @ 100 mls/hr IVPB DAILY DAVIE Rx#:[id number] Sodium Chloride 0.9% 1, 160 000 ml @ 20 mls/hr IV . Q24H DAVIE Rx#:[id number] Oral 0 Output: Urine 1230 1340 200 Other: Voiding Method Indwelling Catheter Indwelling Catheter Indwelling Catheter - Exam GENERAL EXAM: Very pleasant, 60-year-old, but arousable, 60-year-old white female, on BiPAP support with pressures of 15/5, and FiO2 of 75% with a pulse ox of 92% breathing fairly comfortably in no apparent distress. HEAD: Normocephalic/atraumatic. EYES: Normal reaction of pupils, equal size. Conjunctiva pink, sclera white. NOSE: Clear with pink turbinates. THROAT: No erythema or exudates. NECK: No masses, no JVD, no thyroid enlargement, no adenopathy. CHEST: No chest wall deformity. Symmetrical expansion. LUNGS: Equal air entry with coarse crackles throughout CVS: Regular rate and rhythm, normal S1 and S2, no gallops, no murmurs, no rubs ABDOMEN: Soft, nontender. No hepatosplenomegaly, normal bowel sounds, no guarding or rigidity. EXTREMITIES: No clubbing, no edema, no cyanosis, 2+ pulses and upper and lower extremities. Left rivya-sag-edek amputation, right great big toe amputation site clean dry and intact, sutures clean dry and intact, reich area on the back of her right calf, bleeding, does not appear to be infected, surrounding area is extremely flaky, and dry MUSCULOSKELETAL: Muscle strength and tone normal. SPINE: No scoliosis or deformity SKIN: No rashes CENTRAL NERVOUS SYSTEM: Alert and oriented -2. No focal deficits, tone is nor mal in all 4 extremities. PSYCHIATRIC: Alert and oriented -2. Appropriate affect. Intact judgment and insight. - Labs CBC & Chem 7: 06/19/21 08:52 06/21/21 07:22 Labs: Abnormal Lab Results - Last 24 Hours (Table) 06/21/21 06/21/21 06/21/21 Range/Units 16:58 20:03 23:15 POC Glucose (mg/dL) 185 H 152 H (75-99) mg/dL Urine Appearance Cloudy H (Clear) Urine Protein 1+ H (Negative) Urine Blood Large H (Negative) Ur Leukocyte Esterase Large H (Negative) Urine RBC >182 H (0-5) /hpf Urine WBC >182 H (0-5) /hpf Urine WBC Clumps Many H (None) /hpf Amorphous Sediment Rare H (None) /hpf Urine Mucus Rare H (None) /hpf Urine Yeast (Budding) Many H (None) /hpf 06/22/21 06/22/21 Range/Units 06:11 11:34 POC Glucose (mg/dL) 113 H 132 H (75-99) mg/dL Urine Appearance (Clear) Urine Protein (Negative) Urine Blood (Negative) Ur Leukocyte Esterase (Negative) Urine RBC (0-5) /hpf Urine WBC (0-5) /hpf Urine WBC Clumps (None) /hpf Amorphous Sediment (None) /hpf Urine Mucus (None) /hpf Urine Yeast (Budding) (None) /hpf Microbiology - Last 24 Hours (Table) 06/21/21 23:15 Urine Culture - Preliminary Urine,Voided 06/17/21 03:15 Blood Culture - Preliminary Blood No Growth after 120 hours 06/17/21 03:00 Blood Culture - Preliminary Blood No Growth after 120 hours Assessment and Plan Plan: Assessment: #1. Acute hypoxic respiratory failure related to acute COVID-19 pneumonia, and there is a possibility of acute exacerbation of CHF with systolic dysfunction. Patient tested positive for COVID-19 on 06/13/2021 #2. Acute Vancomycin Resistant Enterococcus Faecium urinary tract infection, currently on Daptomycin #3. Recent hospitalization for ESBL E. coli urinary tract infection #4. Recent right great big toe amputation for nonhealing wound on 05/21/2021 #5. Recent history of right hydronephrosis with ureteral stent placement on 05/25/2021 #6. Acute on chronic kidney disease #7. Valvular heart disease, with moderate MR, and moderate to severe tricuspid regurgitation, and severe pulmonary hypertension with right-sided pressure of 88.5 mmHg #8. Reported history of COPD, not oxygen dependent at baseline #9. Former smoker #10. Diabetes mellitus, with diabetic neuropathy #11. Chronic kidney disease stage III at baseline #12. Peripheral vascular disease with previous history of left [id number] amputation #13. Nonhealing wound on the right lower leg posterior messer area, patient follows at the wound care center #14. Urinary artery disease with previous history of bypass grafting #15. Previous history of myocardial infarction #16. Rheumatoid arthritis Plan: Remains on BiPAP, but FiO2 is down to 75% Allow the patient nasal cannula trial, or high flow nasal cannula, for meals and see how she tolerates it May place back on BiPAP afterwards and at bedtime and as needed for periods of respiratory fatigue, and desaturation Encourage oral intake Continue current dose Decadron and Lovenox Urine cultures were positive for vancomycin-resistant enterococcus, patient is currently on daptomycin We'll continue to follow Not a candidate for Bariticinib in view of VRE UTI Continue supportive treatment Overall prognosis is guarded I performed a history & physical examination of the patient and discussed their management with my nurse practitioner, Kaya Sorensen. I reviewed the nurse practitioner's note and agree with the documented findings and plan of care. Lung sounds are positive for diminished breath sounds throughout the lung zambrano. The findings and the impression was discussed with the patient. I attest to the documentation by the nurse practitioner. Time with Patient: Less than 30
[2021-06-22] MEDS: SODIUM CHLORIDE 0.9% 1,000 ML IV SCH (13:45)
--- NOTE | 2021-06-22 16:33 | P.PN ---
Progress Note - Text Progress Note Date: 06/22/21 Chief Complaint: Hypoxemia History of presenting complaint: This is a pleasant 60-year-old patient, visiting physicians Dr. Garcia. Chronic stable medical conditions include (above-knee amputation, chronic wound on the right lower extremity being followed by Dr. Scruggs from vascular, at the wound care center by Lauren, and also has home care. Chronic kidney disease stage III, diabetes mellitus type 2, hyperlipidemia, coronary artery disease with bypass, diabetic peripheral neuropathy, lower back pain from arthritis, uses a motorized wheelchair at baseline, severe secondary pulmonary hypertension, mitral and tricuspid regurgitation. May 10 discharged from the hospital , following debridement of the right lower extremity. Suggestion was made for amputation of the toe. Patient was seen at the wound care center on this . discharged from the hospital May 28. Patient had a acute UTI with right ureter hydronephrosis with positive blood cultures E. coli/ESBL. Underwent right big toe ray amputation by Dr. Scruggs. Also underwent stent placement to the right ureter on May [address] Van. Discharged on IV Invanz. Patient will now sent in from the [facility]CF for becoming hypoxic. Pulse ox was in low 90s on 6 L. Patient's diet. Decreased oral intake. Shortness of breath. Some cough. Patient was positive for COVID on May 13. Because of increasing oxygen requirement patient was sent in. Patient rather tired. Patient did eat her breakfast this morning. Easily tired Admitted with COVID-19 pneumonia, acute hypoxic respiratory failure, metabolic encephalopathy. Placed on IV Decadron. Also UTI. Acute kidney injury 06/18/2021: More awake today. Eating. Shortness of breath. Nasal cannula. On IV Decadron. Lovenox increased to therapeutic dose given the increased d-dimer. Also IV Ertapenem for UTI. IV fluids. 90% on 15 L high flow oxygen 06/19/2021: Declining bed. Tired. Eating about 25%. Tired. Short of breath. 15 L of oxygen. On IV steroids. IV ertapenem for the UTI. Tired. 06/20/2021: On BiPAP. 70%. Tired. Has not eaten today. Lethargic. June 21: On BiPAP. Short of breath. Diet. Unable to eat. Anxious. IV dexamethasone. IV ertapenem. 06/22/2021: Remains on BiPAP. Tired. Short of breath at rest. Not eating. I did talk to the patient that she should take it isn't sure. Spoke to the aide to assist with feeding. Review of systems: Attempted for constitutional, cardiovascular, GI, pulmonary. relevant finding as above Active Medications Albuterol Sulfate (Albuterol Hfa Inhaler) 2 puff INHALATION RT-Q6H PRN PRN Reason: Shortness Of Breath Or Wheezing Albuterol Sulfate (Albuterol Hfa Inhaler) 2 puff INHALATION RT-Q4H [facility] Last Admin: 06/22/21 15:30 Dose: 2 puff Documented by: Alprazolam (Alprazolam 0.25 Mg Tab) 0.25 mg PO TID [facility] Last Admin: 06/22/21 12:16 Dose: 0.25 mg Documented by: Ascorbic Acid (Ascorbic Acid 500 Mg Tab) 500 mg PO TID@0800,1200,1800 [facility] Last Admin: 06/22/21 11:07 Dose: Not Given Documented by: Calcium Carbonate (Calcium Carb-Vit D 500 Mg-5 Mcg Tab) 1 each PO DAILY@0800 [facility] Last Admin: 06/22/21 09:31 Dose: Not Given Documented by: Carvedilol (Carvedilol 3.125 Mg Tab) 3.125 mg PO BID [facility] Last Admin: 06/22/21 09:32 Dose: Not Given Documented by: Cholecalciferol (Cholecalciferol 10 Mcg (400 Iu) Tablet) 10 mcg PO DAILY [facility] Last Admin: 06/22/21 09:32 Dose: Not Given Documented by: Clopidogrel Bisulfate (Clopidogrel 75 Mg Tab) 75 mg PO DAILY@0800 [facility] Last Admin: 06/22/21 09:31 Dose: Not Given Documented by: Dexamethasone Sodium Phosphate (Dexamethasone Sod Phosphate 10 Mg/Ml 1 Ml Vial) 6 mg IV DAILY [facility] Last Admin: 06/22/21 08:44 Dose: 6 mg Documented by: Enoxaparin Sodium (Enoxaparin 40 Mg/0.4 Ml Syringe) 40 mg SQ DAILY [facility] Last Admin: 06/22/21 08:44 Dose: 40 mg Documented by: Sodium Chloride (Saline 0.9%) 1,000 mls @ 20 mls/hr IV .Q24H [facility] Last Admin: 06/22/21 13:45 Dose: Not Given Documented by: Daptomycin 400 mg/ Sodium (Chloride) 50 mls @ 100 mls/hr IVPB Q24H [facility]; Protocol Last Admin: 06/21/21 23:15 Dose: 100 mls/hr Documented by: Insulin Aspart (Insulin Aspart (Novolog) 100 Unit/Ml Vial) 0 unit SQ ACHS [facility]; Protocol Last Admin: 06/22/21 12:16 Dose: 1 unit Documented by: Loperamide HCl (Loperamide 2 Mg Cap) 2 mg PO Q6H PRN PRN Reason: Diarrhea Multivitamins (Multivitamins, Thera 1 Each Tab) 1 each PO DAILY [facility] Last Admin: 06/22/21 09:32 Dose: Not Given Documented by: Naloxone HCl (Naloxone 0.4 Mg/Ml 1 Ml Vial) 0.2 mg IV Q2M PRN PRN Reason: Opioid Reversal Ondansetron HCl (Ondansetron 4 Mg Tab) 4 mg PO Q6H PRN PRN Reason: Nausea And Vomiting Last Admin: 06/19/21 15:36 Dose: 4 mg Documented by: Sodium Bicarbonate (Sodium Bicarbonate Tab 650 Mg Tab) 650 mg PO TID@0000,0800,1600 [facility] Last Admin: 06/22/21 09:32 Dose: Not Given Documented by: Tiotropium Firestone (Tiotropium 2.5 Mcg Inhaler) 2 puff INHALATION RT-DAILY [facility] Last Admin: 06/22/21 08:46 Dose: Not Given Documented by: Tramadol/Acetaminophen (Tramadol-Acetaminop 37.5-325mg 1 Each Tab) 1 each PO Q8H PRN PRN Reason: Pain Last Admin: 06/21/21 09:25 Dose: 1 each Documented by: Zinc Sulfate (Zinc Sulfate 220 Mg Cap) 220 mg PO DAILY [facility] Last Admin: 06/22/21 09:32 Dose: Not Given Documented by: Past medical history to include: Left above-knee amputation, right big toe surgery amputation chronic kidney disease stage III, diabetes mellitus, hyperlipidemia, coronary artery disease with bypass, diabetic peripheral neuropathy, lower back pain from arthritis, GERD venous stasis ulcers, peripheral neuropathy, Social history: At [facility] currently. Motorized wheelchair. Home care. She was drinking heavily of April 1991. Smoking up to 3 packs a day up to 2011. Family history: Diabetes, [place], and resume, stroke Physical examination: VITAL SIGNS: 100.1, 94, 36, 143 with 69, 93% on BiPAP at 75% GENERAL: reclining bed, anxious short of breath LUNGS: Respiratory rate increased, PSYCH: Anxious, answering questions EXTREMITIES: Left above-knee amputation. Right lower foot ray amputation with dressing, Rest of the exam per pulmonary and nursing Investigations: June 21: D-dimer 2.99 potassium 5 BUN 53 creatinine 1.21 CRP 2.2 Urine culture: Enterococcus faecium, VRE, Jeimy June 20: Potassium 5 BUN 57 creatinine 1.47 June 19: White count 4.8 hemoglobin 8.4 platelets 133 potassium 4.9 BUN 59 creatinine 1.8 to d-dimer 0.9 to CRP 3.2 06/18/2021: WBC 2.1 hemoglobin 8.5 platelets 104 potassium 4.9 BUN 56 creatinine 2.49 pro-calcitonin 0.63 d-dimer 1.24 WBC 3.5 hemoglobin 8.4 platelets 118 potassium 4.5 BUN 51 and creatinine 2.55 EKG tracing personally reviewed by me: Sinus rhythm, rate 81 nonspecific T-wave changes Chest x-ray film personally reviewed by me: Bilateral infiltrates Previous testin-D echocardiogram: Moderate concentric LVH. EF 45-50%. Moderate to severe tricuspid regurgitation. Severe pulmonary hypertension. 05/27/2021: BUN 29 creatinine 1.11 platelets 26 hemoglobin 10.6 Assessment and plan: -Severe COVID-19 pneumonia: Slow to respond Dexamethasone 6 mg daily. Subcu Lovenox. Vitamin C vitamin D zinc. -Acute hypoxic respiratory failure from COVID-19 pneumonia: Not improving On BiPAP at 75 % -Acute metabolic encephalopathy from pneumonia: Slow to respond Follow clinically - Ray amputation of infected right big toe on May [address] Scruggs. Recently completed a course of IV Invanz. Continue wound care -Acute UTI with cystitis in a patient with recent Acute right hydronephrosis and hydroureter from right ureter stone,: right ureter stent by Dr. Van -May 25. Completed course of IV Invanz VRE. IV Ertapenem-changed to IV daptomycin -Chronic kidney disease stage III from diabetic nephropathy and nephrosclerosis Follow renal function -Acute kidney injury, likely ATN from sepsis and decreased oral intake: Improving slowly IV fluids. Creatinine 2.55 on presentation. 1.21 -Symptomatic Anemia of chronic kidney disease Follow H&H -Obesity BMI 34.3 Weight loss measures. Follow-up with PCP -Diabetes mellitus type 2 , diet-controlled Follow Accu-Cheks -Coronary artery disease with prior history of bypass Aspirin, Coreg, Plavix -Diabetic peripheral neuropathy -Chronic low back pain from arthritis Tylenol as needed -Chronic medical debility Uses a motorized wheelchair -Secondary severe pulmonary hypertension Follow clinically -Moderate mitral and moderate to severe tricuspid regurgitation Follow clinically -Bilateral renal calculi -Asymptomatic choledocholithiasis BiPAP. IV dexamethasone. IV ertapenem changed to IV daptomycin. On BiPAP 75%. Prognosis guarded. Encourage oral intake with ensure.
--- NOTE | 2021-06-22 16:49 | PN ---
PROGRESS NOTE DATE OF SERVICE: 06/22/2021 REASON FOR FOLLOWUP: 1. VRE urinary tract infection. 2. COVID-19 pneumonia. INTERVAL HISTORY: The patient did have a low-grade fever of 100.1 this afternoon. The patient remains on BiPAP. The patient is hemodynamically stable, not on any pressor support. No vomiting or diarrhea has been reported. The patient denies having any chest pain or worsening cough and no diarrhea. PHYSICAL EXAMINATION: Blood pressure 1403/69, pulse of 94, temperature 100.1. She is 93% on BiPAP. GENERAL DESCRIPTION: General description is a middle-aged female lying in bed in no distress. RESPIRATORY SYSTEM: Unlabored breathing. Decreased intensity of breath sounds. No wheeze. HEART: S1, S2. Regular rate and rhythm. ABDOMEN: Soft. No tenderness. LABS: Repeat urine is positive. DIAGNOSTIC IMPRESSION AND PLAN: 1. Patient with a VRE urinary tract infection, covered with daptomycin; to continue while waiting for repeat urine to be finalized. 2. Patient with COVID-19 infection, still requiring BiPAP. The patient is on Lovenox, dexamethasone, zinc, ascorbic acid. Repeat chest x-ray and monitor her clinical course closely. MMODL / IJN: [id number] /
[2021-06-22 17:14] LABS: Glucose,Whole Blood 154 mg/dL (75-99)
[2021-06-22 20:22] LABS: Glucose,Whole Blood 158 mg/dL (75-99)
[2021-06-23] MEDS: ALBUTEROL HFA INHALER INHALATION SCH ×6 (03:28→23:46)
[2021-06-23 06:23] LABS: Glucose,Whole Blood 102 mg/dL (75-99)
[2021-06-23] MEDS: INSULIN ASPART (NovoLOG) 100 UNIT/ML VIAL SQ SCH ×4 (06:26→20:45)
[2021-06-23] MEDS: TIOTROPIUM 2.5 MCG INHALER INHALATION SCH (07:45)
--- NOTE | 2021-06-23 07:50 | XR ---
EXAMINATION TYPE: XR chest 1V portable DATE OF EXAM: 06/23/2021 COMPARISON: 06/20/2021 HISTORY: Shortness of breath TECHNIQUE: Single frontal view of the chest is obtained. FINDINGS: Diffuse interstitial pattern with basilar infiltrate and small effusion. Heart is enlarged . Postoperative change. No pneumothorax. IMPRESSION: Worsening basilar infiltrates with persistent diffuse interstitial pattern could been th e basis of diffuse pneumonia correlate clinically to exclude CHF.
[2021-06-23 08:23] LABS: Anisocytosis Slight; Basophils % (A) 0 %; Eosinophils # (A) 0.1 k/uL (0-0.7); Eosinophils % (A) 0 %; HCT 33.5 % (34.0-46.0); HGB 10.1 gm/dL (11.4-16.0); Hypochromasia Marked; Lymphocytes # (A) 0.3 k/uL (1.0-4.8); Lymphocytes % (A) 2 %; MCH 26.2 pg (25.0-35.0); MCV 87.5 fL (80.0-100.0); Mean Platelet Volume 7.4; Monocytes # (A) 0.2 k/uL (0-1.0); Monocytes % (A) 2 %; Neutrophils # (A) 13.5 k/uL (1.3-7.7); Neutrophils % (A) 95 %; Platelet Count 265 k/uL (150-450); RBC 3.83 m/uL (3.80-5.40); RDW 18.3 % (11.5-15.5); WBC 14.2 k/uL (3.8-10.6)
[2021-06-23 08:48] LABS: C Reactive Protein 5.3 mg/dL (<1.0); Calcium 8.3 mg/dL (8.4-10.2); Potassium 4.7 mmol/L (3.5-5.1)
[2021-06-23] MEDS: ENOXAPARIN 40 MG/0.4 ML SYRINGE SQ SCH (09:33)
[2021-06-23] MEDS: SODIUM BICARBONATE TAB 650 MG TAB PO SCH ×2 (09:34→17:18)
[2021-06-23] MEDS: DEXAMETHASONE SOD PHOSPHATE 10 MG/ML 1 ML VIAL IV SCH ×2 (09:34→20:45)
[2021-06-23] MEDS: ALPRAZolam 0.25 MG TAB PO SCH ×3 (09:34→20:46)
[2021-06-23] MEDS: MULTIVITAMINS, THERA 1 EACH TAB PO SCH (09:34)
[2021-06-23] MEDS: CHOLECALCIFEROL 10 MCG (400 IU) TABLET PO SCH (09:34)
[2021-06-23] MEDS: CLOPIDOGREL 75 MG TAB PO SCH (09:35)
[2021-06-23] MEDS: CALCIUM CARB-VIT D 500 MG-5 MCG TAB PO SCH (09:35)
[2021-06-23] MEDS: ASCORBIC ACID 500 MG TAB PO SCH ×3 (09:35→17:18)
[2021-06-23] MEDS: carvediloL 3.125 MG TAB PO SCH ×2 (09:35→20:45)
[2021-06-23] MEDS: ZINC SULFATE 220 MG CAP PO SCH (09:37)
[2021-06-23] MEDS: ONDANSETRON 4 MG TAB PO PRN (09:42)
[2021-06-23 12:03] LABS: Glucose,Whole Blood 160 mg/dL (75-99)
[2021-06-23 13:29] VITALS: BMI 34.6
--- NOTE | 2021-06-23 13:31 | P.PN ---
Subjective Progress Note Date: 06/23/21 This is a 60-year-old female patient, undergoing rehab at the [facility], following her recent hospitalization for ESBL E. coli urinary tract infection, she was discharged to [facility] with the right upper arm PICC line in place in 12 days of Invanz. Patient had hydroureter on the right side, patient underwent right ureteral stent placement on 05/25/2021. Patient Also had a recent amputation of the right big toe by Dr. Scruggs on 05/21/2021. Patient has multiple medical problems including diabetes mellitus type 2, chronic kidney disease stage III, coronary artery disease with bypass, diabetic peripheral neuropathy, chronic low back pain, impaired gait, and patient uses a motorized wheelchair at baseline, most recently she is bedbound, valvular heart disease, severe secondary pulmonary hypertension, mitral and tricuspid regurgitation. Patient was also a former smoker. She is not oxygen dependent at baseline. On 06/17/2021 when she was brought into the emergency department for evaluation of altered mentation, and hypoxia. She tested positive for COVID-19 at the intermediate on 06/13/2021. She is very lethargic but she is able to answer some questions, she states she has had the cough and fever since last , 05/12/2021. Was no chest x-ray obtained in the emergency department. Patient was placed on 6 L of oxygen and her pulse ox was only around 92%. He was afebrile while in the emergency department. Her admission blood work showed a white blood cell, 3.5, hemoglobin was 8.4, platelet count was 118, d-dimer came back at 1.35, sodium was 135, potassium is 4.5, there was evidence of acute on chronic kidney disease, with BUN of 51 and creatinine of 2.55, and GFR was 23, LDH was 1892, troponins were 0.032, 0.0-8, and 0.0-4, proBNP was elevated at 26,300; urinalysis showed evidence of infected urine. In the ER Patient was given IV fluid boluses, and she was placed on 0.9 normal saline at a rate of 130 ML per hour. He remains on 6 L of oxygen her pulse ox is 99%, blood pressure stable, she is afebrile, lung sounds are positive for coarse crackles throughou t. Addition patient has open wound on the back of her right calf for which she polyps at the wound care clinic, the right great big toe amputation site is clean dry and intact, sutures are intact. She has a superficial macerated area on her coccyx. Blood cultures are pending at this time. On 06/18/2021 patient seen in follow-up on selective care unit, she is sleepy, but she easily arouses to voice, she is answering questions appropriately, she states she leaks most of the time at the intermediate and this is her baseline. Denies any difficulty breathing, lung sounds reveal diffuse crackles bilaterally, currently she is on 8 L of oxygen and her pulse ox is 87-88%, the FiO2 was then increased to 10 L, and her pulse ox is around 90%. No coughing, no phlegm production, no chest discomfort. No fever or chills overnight, vital signs have been stable, breathing is nonlabored, yesterday's chest x-ray showed diffuse bilateral infiltrates and small pleural effusion. We'll cut back IV fl uids to 50 ML yesterday, however overnight there were increased again to 130 ML per hour, patient does have generalized edema and diffuse crackles bilaterally, given fluid boluses in the emergency department, and her proBNP was significantly elevated on admission. Today's labs have been reviewed, and her renal profile is relatively stable, with the BUN of 56 and creatinine of 2.49. Urine output is difficult to estimate as the patient is incontinent of urine and has a brief on. Patient is receiving wound care treatments to her right lower extremity posterior messer area wound, and the area of recent right great big toe amputation. No other acute events overnight. Patient is currently Invanz, ID service is following, blood and urine cultures have been sent and are pending at this time On today's evaluation on 06/19/2021 patient is seen in follow-up on selective care unit, she is currently on 15 L per high flow nasal cannula, and nonrebreather mask was added and her pulse ox on those settings were marginal around 90-91%, patient is lethargic, she appears to be in no acute respiratory distress, she easily wakes up to verbal stimulation, answers appropriately, no fever or chills, vital signs have been stable, she is mostly bed bound for the most part. She remains on Decadron 6 mg daily, she is on antibiotics in the form of Invanz for possibility of recurrent ESBL urinary tract infection, ID service is following, patient was a poor candidate for Remdesivir, she is not a candidate for bariticinib in view of ongoing bacterial infection, lung sounds are positive for scattered crackles, yesterday's chest x-ray showed diffuse bilateral infiltrates with a right-sided pleural effusion. Patient has been on IV fluids since admission. She still has 0.9 normal saline infusing at a rate of 50 ML per hour. Today's labs have been reviewed, her white blood cell count is 4.8, hemoglobin is 8.4, d-dimer is 0.92, sodium is 139, potassium is 4.0, chloride is 111, B1 is 59, creatinine is 1.82, which is improved from yesterday. No chest discomfort, she is breathing fairly comfortably, lethargic muscle time, she states it's not too far off her baseline. She sleeps for the most pa rt during the day in between meals at the [facility]. She is oriented 3, when asked about CODE STATUS she specifically said that she did not want intubation. Rapid response team was called on her this afternoon in regards to low O2 saturations however patient's respiratory status was relatively stable, there was no increased work of breathing, she was on the same amount of oxygen, she did go on BiPAP support which she is tolerating very well, and her subsequent O2 saturations did improve to 98%, she continued on all the same treatments. And she remains on selective care unit. On today's evaluation on 06/20/2021 patient seen in follow-up on selective care unit, she is currently on BiPAP support, with pressures of 15/5, and FiO2 is currently down to 70%, her pulse ox is 92 and 93%, she is afebrile, hemodynamically she stable, she is awake and alert, complaints of chest pain, she is complaining of having a dry mouth. Does not appear to be in any acute distress. Today's chest x-ray shows stable diffuse interstitial pattern with bilateral infiltrates and small pleural effusion. She continues on Decadron, she continues on vitamins, she is on Invanz for urinary tract infection, initial urine culture has shown no growth, repeat urine culture was sent, and pending at this time, blood cultures have been negative, today's labs have been reviewed. D-dimer is 1.22, not significantly increased from yesterday, her LDH has slightly came down, and currently down to 2023, CRP is 3.1. Procalcitonin level came back at 0.63. She received a dose of IV Lasix, she is a negative fluid balance, overall oxygenation is improved, and we were able to come down on her FiO2 down to 70%. Appetite is poor, overall she is tired, she sleeps a lot. Patient does not seem to be uncomfortable, yesterday she said that she did not want to be intubated. Her CODE STATUS at this point is full code with no intubation. On today's evaluation on 06/21/2021 patient seen in follow-up on selective care unit, she remains on BiPAP support with pressures of 15/5, and FiO2 of 95%. Apparently when the mask is removed she rapidly desaturates to 50% even when the mask is off very briefly for her to take a sip of water take medications, at this time she is very BiPAP dependent. She denies any chest pain, she has been afebrile. Hemodynamically she has been stable. She is on 0.9 normal saline at a rate of 20 ML per hour, she has not been able to take in much in the way of oral intake related to the fact that she is BiPAP dependent. Yesterday's chest x-ray shows diffuse interstitial pattern with bilateral infiltrates and small pleural effusion. Patient continues on Decadron, she is on Invanz for wrist history of ESBL E. coli, her urine culture from September admission is showing enterococcus faecium and Jeimy albicans. ID service is following and managing the antibiotics. On 06/22/2021 patient seen in follow-up on selective care unit, nursing reports that she's been pretty much BiPAP dependent, she easily desaturates when the mask is removed, she has remained on BiPAP support. He much continuously, with pressures of 15/5, and FiO2 is currently down to 75%, pulse ox is 93%, low-grade fever today, with a temp of 100.1F, however appears to be in no acute respiratory distress. She is very thirsty, she is asking for drink, she has not been able to take in much in the way of oral intake related to continue his BiPAP support, nursing reports that they have not given her a trial of high flow nasal cannula yet even for short periods of time. She denies any chest discomfort, she remains on Decadron 6 mg daily for COVID-19 pneumonia, she is also on antibiotics currently on daptomycin, Invanz was discontinued, urine culture was positive for vancomycin-resistant enterococcus faecium. Blood cultures have been negative. On 06/23/2021 patient seen in follow-up on selective care unit, she remains pretty much BiPAP dependent, FiO2 was increased to 100% in view of hypoxia, and O2 sats below 85%, patient is awake and alert, she is able to answer some simple questions, she is short of breath at rest, but no acute distress, chest x-ray findings reveal worsening bilateral infiltrates. She has not tolerated high flow nasal cannula trials, she desats quite rapidly on the nasal cannula and her oral intake has been limited regarding to that. She is on Decadron 6 mg daily, we have been unable to offer her monoclonal antibodies related to an active infection, she is on antibiotics, her urine showed vancomycin-resistant enterococcus, and her current antibiotic coverage is daptomycin. ID service is following, patient is on maintenance IV fluids with 0.9 normal saline at a rate of 20 ML per hour, she has only been able to take sips of water with meds, her sodium today is on the rise and is up to 146, potassium is 4.7, chloride is 113, BUN is 40, creatinine 0.86, white blood cell count is 14.2, hemoglobin was 10.1, d-dimer has significantly increased and is up to 23.4 on today's labs. When she has been just on prophylactic dose Lovenox 40 mg daily, her CRP is 5.3, LDH is pending for today. Objective - Vital Signs Vital signs: Vital Signs Temp 98.6 F 06/23/21 04:00 Pulse 125 H 06/23/21 08:00 Resp 43 H 06/23/21 08:00 BP 155/87 06/23/21 08:00 Pulse Ox 92 L 06/23/21 08:00 Intake & Output 06/22/21 06/23/21 06/23/21 18:59 06:59 18:59 Intake Total 200 Output Total 900 600 Balance -900 -600 200 Weight 91.5 kg Intake: Oral 200 Output: Urine 900 600 Other: Voiding Method Indwelling Catheter Indwelling Catheter Indwelling Catheter - Exam GENERAL EXAM: Very pleasant, 60-year-old, but arousable, 60-year-old white female, on BiPAP support with pressures of 15/5, and FiO2 of 90% with a pulse ox of 92% breathing fairly comfortably in no apparent distress. HEAD: Normocephalic/atraumatic. EYES: Normal reaction of pupils, equal size. Conjunctiva pink, sclera white. NOSE: Clear with pink turbinates. THROAT: No erythema or exudates. NECK: No masses, no JVD, no thyroid enlargement, no adenopathy. CHEST: No chest wall deformity. Symmetrical expansion. LUNGS: Equal air entry with coarse crackles throughout CVS: Regular rate and rhythm, normal S1 and S2, no gallops, no murmurs, no rubs ABDOMEN: Soft, nontender. No hepatosplenomegaly, normal bowel sounds, no guarding or rigidity. EXTREMITIES: No clubbing, no edema, no cyanosis, 2+ pulses and upper and lower extremities. Left [id number] amputation, right great big toe amputation site clean dry and intact, sutures clean dry and intact, reich area on the back of her right calf, bleeding, does not appear to be infected, surrounding area is extremely flaky, and dry MUSCULOSKELETAL: Muscle strength and tone normal. SPINE: No scoliosis or deformity SKIN: No rashes CENTRAL NERVOUS SYSTEM: Alert and oriented -2. No focal deficits, tone is normal in all 4 extremities. PSYCHIATRIC: Alert and oriented -2. Appropriate affect. Intact judgment and insight. - Labs CBC & Chem 7: 06/23/21 07:34 06/23/21 07:34 Labs: Abnormal Lab Results - Last 24 Hours (Table) 06/22/21 06/22/21 06/23/21 Range/Units 17:07 19:45 06:22 WBC (3.8-10.6) k/uL Hgb (11.4-16.0) gm/dL Hct (34.0-46.0) % MCHC (31.0-37.0) g/dL RDW (11.5-15.5) % Neutrophils # (1.3-7.7) k/uL Lymphocytes # (1.0-4.8) k/uL D-Dimer (<0.60) mg/L FEU Sodium (137-145) mmol/L Chloride (98-107) mmol/L BUN (7-17) mg/dL Glucose (74-99) mg/dL POC Glucose (mg/dL) 154 H 158 H 102 H (75-99) mg/dL Calcium (8.4-10.2) mg/dL C-Reactive Protein (<1.0) mg/dL 06/23/21 06/23/21 06/23/21 Range/Units 07:34 07:34 07:34 WBC 14.2 H (3.8-10.6) k/uL Hgb 10.1 L (11.4-16.0) gm/dL Hct 33.5 L (34.0-46.0) % MCHC 30.0 L (31.0-37.0) g/dL RDW 18.3 H (11.5-15.5) % Neutrophils # 13.5 H (1.3-7.7) k/uL Lymphocytes # 0.3 L (1.0-4.8) k/uL D-Dimer 23.41 H (<0.60) mg/L FEU Sodium 146 H (137-145) mmol/L Chloride 113 H (98-107) mmol/L BUN 40 H (7-17) mg/dL Glucose 116 H (74-99) mg/dL POC Glucose (mg/dL) (75-99) mg/dL Calcium 8.3 L (8.4-10.2) mg/dL C-Reactive Protein 5.3 H (<1.0) mg/dL 06/23/21 Range/Units 11:57 WBC (3.8-10.6) k/uL Hgb (11.4-16.0) gm/dL Hct (34.0-46.0) % MCHC (31.0-37.0) g/dL RDW (11.5-15.5) % Neutrophils # (1.3-7.7) k/uL Lymphocytes # (1.0-4.8) k/uL D-Dimer (<0.60) mg/L FEU Sodium (137-145) mmol/L Chloride (98-107) mmol/L BUN (7-17) mg/dL Glucose (74-99) mg/dL POC Glucose (mg/dL) 160 H (75-99) mg/dL Calcium (8.4-10.2) mg/dL C-Reactive Protein (<1.0) mg/dL Microbiology - Last 24 Hours (Table) 06/17/21 03:15 Blood Culture - Final Blood No Growth after 144 hours 06/17/21 03:00 Blood Culture - Final Blood No Growth after 144 hours 06/21/21 23:15 Urine Culture - Preliminary Urine,Voided Assessment and Plan Plan: Assessment: #1. Acute hypoxic respiratory failure related to acute COVID-19 pneumonia, and there is a possibility of acute exacerbation of CHF with systolic dysfunction. Patient tested positive for COVID-19 on 06/13/2021. Patient was not offered Remdesivir in view of acute kidney injury, and unclear onset of her symptomology. Her hypoxia has progressed, she is currently on BiPAP support wit h pressures of 15/5 and FiO2 of 90%. Unable to offer her monoclonal antibody related to active infection #2. Acute Vancomycin Resistant Enterococcus Faecium urinary tract infection, currently on Daptomycin #3. Recent hospitalization for ESBL E. coli urinary tract infection #4. Recent right great big toe amputation for nonhealing wound on 05/21/2021 #5. Recent history of right hydronephrosis with ureteral stent placement on 05/25/2021 #6. Acute on chronic kidney disease #7. Valvular heart disease, with moderate MR, and moderate to severe tricuspid regurgitation, and severe pulmonary hypertension with right-sided pressure of 88.5 mmHg #8. Reported history of COPD, not oxygen dependent at baseline #9. Former smoker #10. Diabetes mellitus, with diabetic neuropathy #11. Chronic kidney disease stage III at baseline #12. Peripheral vascular disease with previous history of left [id number] amputation #13. Nonhealing wound on the right lower leg posterior messer area, patient follows at the wound care center #14. Urinary artery disease with previous history of bypass grafting #15. Previous history of myocardial infarction #16. Rheumatoid arthritis Plan: Today's chest x-ray findings show worsening bilateral pulmonary infiltrates Remains BiPAP dependent, has not tolerated the high flow nasal cannula trials, FiO2 is currently up to 90% We will increase the Decadron to 6 mg twice daily Increase Lovenox to 90 mg twice daily in view of a d-dimer level of 23.41 D5W at a rate of 50 ML per hour Patient will be started on TPN infusion because of very poor oral intake and BiPAP dependency Patient remains on daptomycin for vancomycin-resistant enterococcus Overall prognosis is quite poor Patient medically at that she wants no intubation If she fails to progress and show improvement in her pulmonary status it would be appropriate to readdress her CODE STATUS again and recommended palliative care hospice I performed a history & physical examination of the patient and discussed their management with my nurse practitioner, Kaya Sorensen. I reviewed the nurse practitioner's note and agree with the documented findings and plan of care. Lung sounds are positive for diminished breath sounds throughout the lung zambrano. The findings and the impression was discussed with the patient. I attest to the documentation by the nurse practitioner. Time with Patient: Less than 30
[2021-06-23 14:29] LABS: Magnesium 1.7 mg/dL (1.6-2.3)
--- NOTE | 2021-06-23 14:46 | P.PN ---
Progress Note - Text Progress Note Date: 06/23/21 Chief Complaint: Hypoxemia History of presenting complaint: This is a pleasant 60-year-old patient, visiting physicians Dr. Garcia. Chronic stable medical conditions include (above-knee amputation, chronic wound on the right lower extremity being followed by Dr. Scruggs from vascular, at the wound care center by Lauren, and also has home care. Chronic kidney disease stage III, diabetes mellitus type 2, hyperlipidemia, coronary artery disease with bypass, diabetic peripheral neuropathy, lower back pain from arthritis, uses a motorized wheelchair at baseline, severe secondary pulmonary hypertension, mitral and tricuspid regurgitation. May 10 discharged from the hospital , following debridement of the right lower extremity. Suggestion was made for amputation of the toe. Patient was seen at the wound care center on this . discharged from the hospital May 28. Patient had a acute UTI with right ureter hydronephrosis with positive blood cultures E. coli/ESBL. Underwent right big toe ray amputation by Dr. Scruggs. Also underwent stent placement to the right ureter on May [address] Van. Discharged on IV Invanz. Patient will now sent in from the ECF for becoming hypoxic. Pulse ox was in low 90s on 6 L. Patient's diet. Decreased oral intake. Shortness of breath. Some cough. Patient was positive for COVID on May 13. Because of increasing oxygen requirement patient was sent in. Patient rather tired. Patient did eat her breakfast this morning. Easily tired Admitted with COVID-19 pneumonia, acute hypoxic respiratory failure, metabolic encephalopathy. Placed on IV Decadron. Also UTI. Acute kidney injury 06/18/2021: More awake today. Eating. Shortness of breath. Nasal cannula. On IV Decadron. Lovenox increased to therapeutic dose given the increased d-dimer. Also IV Ertapenem for UTI. IV fluids. 90% on 15 L high flow oxygen 06/19/2021: Declining bed. Tired. Eating about 25%. Tired. Short of breath. 15 L of oxygen. On IV steroids. IV ertapenem for the UTI. Tired. 06/20/2021: On BiPAP. 70%. Tired. Has not eaten today. Lethargic. June 21: On BiPAP. Short of breath. Diet. Unable to eat. Anxious. IV dexamethasone. IV ertapenem. 06/22/2021: Remains on BiPAP. Tired. Short of breath at rest. Not eating. I did talk to the patient that she should take it isn't sure. Spoke to the aide to assist with feeding. 06/23/2021: 1 BiPAP. Tired. Short of breath. Barely eating. TPN lipids have been ordered. Patient does have a PICC line. Review of systems: Attempted for constitutional, cardiovascular, GI, pulmonary. relevant finding as above Active Medications Albuterol Sulfate (Albuterol Hfa Inhaler) 2 puff INHALATION RT-Q6H PRN PRN Reason: Shortness Of Breath Or Wheezing Albuterol Sulfate (Albuterol Hfa Inhaler) 2 puff INHALATION RT-Q4H [facility] Last Admin: 06/23/21 11:16 Dose: 2 puff Documented by: Alprazolam (Alprazolam 0.25 Mg Tab) 0.25 mg PO TID [facility] Last Admin: 06/23/21 09:34 Dose: 0.25 mg Documented by: Ascorbic Acid (Ascorbic Acid 500 Mg Tab) 500 mg PO TID@0800,1200,1800 [facility] Last Admin: 06/23/21 12:24 Dose: 500 mg Documented by: Calcium Carbonate (Calcium Carb-Vit D 500 Mg-5 Mcg Tab) 1 each PO DAILY@0800 [facility] Last Admin: 06/23/21 09:35 Dose: 1 each Documented by: Carvedilol (Carvedilol 3.125 Mg Tab) 3.125 mg PO BID [facility] Last Admin: 06/23/21 09:35 Dose: 3.125 mg Documented by: Cholecalciferol (Cholecalciferol 10 Mcg (400 Iu) Tablet) 10 mcg PO DAILY [facility] Last Admin: 06/23/21 09:34 Dose: 10 mcg Documented by: Clopidogrel Bisulfate (Clopidogrel 75 Mg Tab) 75 mg PO DAILY@0800 [facility] Last Admin: 06/23/21 09:35 Dose: 75 mg Documented by: Dexamethasone Sodium Phosphate (Dexamethasone Sod Phosphate 10 Mg/Ml 1 Ml Vial) 6 mg IV BID [facility] Enoxaparin Sodium (Enoxaparin 100 Mg/Ml Syringe) 90 mg SQ Q12HR [facility] Daptomycin 400 mg/ Sodium (Chloride) 50 mls @ 100 mls/hr IVPB Q24H [facility]; Protocol Last Admin: 06/22/21 23:28 Dose: 100 mls/hr Documented by: Dextrose/Water (Dextrose 5%-Water Iv Soln) 1,000 mls @ 50 mls/hr IV .Q20H [facility] Parenteral Vitamin Supplement 10 ml/ Zinc/Copper/Manganese/Selenium 1 ml/ Calcium Gluconate 1 gm/ Magnesium Sulfate 1 gm/ Amino Acids/Dextrose 1,023 mls @ 30 mls/hr IV .Q24H [facility] Stop: 06/26/21 14:59 Parenteral Vitamin Supplement 10 ml/ Zinc/Copper/Manganese/Selenium 1 ml/ Calcium Gluconate 1 gm/ Magnesium Sulfate 1 gm/ Amino Acids/Dextrose 1,023 mls @ 65 mls/hr IV .BY DURATION [facility] Calcium Gluconate 1 gm/Magnesium Sulfate 1 gm/ Amino Acids/Dextrose 1,012 mls @ 65 mls/hr IV .BY DURATION [facility] Insulin Aspart (Insulin Aspart (Novolog) 100 Unit/Ml Vial) 0 unit SQ ACHS [facility]; Protocol Last Admin: 06/23/21 12:24 Dose: 3 unit Documented by: Loperamide HCl (Loperamide 2 Mg Cap) 2 mg PO Q6H PRN PRN Reason: Diarrhea Multivitamins (Multivitamins, Thera 1 Each Tab) 1 each PO DAILY [facility] Last Admin: 06/23/21 09:34 Dose: 1 each Documented by: Naloxone HCl (Naloxone 0.4 Mg/Ml 1 Ml Vial) 0.2 mg IV Q2M PRN PRN Reason: Opioid Reversal Ondansetron HCl (Ondansetron 4 Mg Tab) 4 mg PO Q6H PRN PRN Reason: Nausea And Vomiting Last Admin: 06/23/21 09:42 Dose: 4 mg Documented by: Sodium Bicarbonate (Sodium Bicarbonate Tab 650 Mg Tab) 650 mg PO TID@0000,0800, 1600 [facility] Last Admin: 06/23/21 09:34 Dose: 650 mg Documented by: Tiotropium [place] (Tiotropium 2.5 Mcg Inhaler) 2 puff INHALATION RT-DAILY [facility] Last Admin: 06/23/21 07:45 Dose: Not Given Documented by: Tramadol/Acetaminophen (Tramadol-Acetaminop 37.5-325mg 1 Each Tab) 1 each PO Q8H PRN PRN Reason: Pain Last Admin: 06/21/21 09:25 Dose: 1 each Documented by: Zinc Sulfate (Zinc Sulfate 220 Mg Cap) 220 mg PO DAILY [facility] Last Admin: 06/23/21 09:37 Dose: 220 mg Documented by: Past medical history to include: Left above-knee amputation, right big toe surgery amputation chronic kidney disease stage III, diabetes mellitus, hyperlipidemia, coronary artery disease with bypass, diabetic peripheral neuropathy, lower back pain from arthritis, GERD venous stasis ulcers, peripheral neuropathy, Social history: At [facility] currently. Motorized wheelchair. Home care. She was drinking heavily of April 1991. Smoking up to 3 packs a day up to 2011. Family history: Diabetes, PR, and resume, stroke Physical examination: VITAL SIGNS: Afebrile, 120, 43, 1 55/87, 92% on 90% BiPAP GENERAL: reclining bed, anxious short of breath LUNGS: Respiratory rate increased, PSYCH: Anxious, answering questions EXTREMITIES: Left above-knee amputation. Right lower foot ray amputation with dressing, Rest of the exam per pulmonary and nursing Investigations: June 23: White count 14.2 hemoglobin 10.1 d-dimer 23.41 June 21: D-dimer 2.99 potassium 5 BUN 53 creatinine 1.21 CRP 2.2 Urine culture: Enterococcus faecium, VRE, Jeimy June 20: Potassium 5 BUN 57 creatinine 1.47 June 19: White count 4.8 hemoglobin 8.4 platelets 133 potassium 4.9 BUN 59 creatinine 1.8 to d-dimer 0.9 to CRP 3.2 06/18/2021: WBC 2.1 hemoglobin 8.5 platelets 104 potassium 4.9 BUN 56 creatinine 2.49 pro-calcitonin 0.63 d-dimer 1.24 WBC 3.5 hemoglobin 8.4 platelets 118 potassium 4.5 BUN 51 and creatinine 2.55 EKG tracing personally reviewed by me: Sinus rhythm, rate 81 nonspecific T-wave changes Chest x-ray film personally reviewed by me: Bilateral infiltrates Previous testin-D echocardiogram: Moderate concentric LVH. EF 45-50%. Moderate to severe tricuspid regurgitation. Severe pulmonary hypertension. 05/27/2021: BUN 29 creatinine 1.11 platelets 26 hemoglobin 10.6 Assessment and plan: -Severe COVID-19 pneumonia: Worsening Dexamethasone 6 mg daily. Subcu Lovenox-per pulmonary. Vitamin C vitamin D zinc. -Acute hypoxic respiratory failure from COVID-19 pneumonia: Worsening On BiPAP at 90% -Acute metabolic encephalopathy from pneumonia: Slow to respond Follow clinically - Ray amputation of infected right big toe on May [address] Scruggs. Recently completed a course of IV Invanz. Continue wound care -Acute UTI with cystitis in a patient with recent Acute right hydronephrosis and hydroureter from right ureter stone,: right ureter stent by Dr. Van -May 25. Completed course of IV Invanz VRE. IV Ertapenem-changed to IV daptomycin -Chronic kidney disease stage III from diabetic nephropathy and nephrosclerosis Follow renal function -Acute kidney injury, likely ATN from sepsis and decreased oral intake: Improving slowly IV fluids. Creatinine 2.55 on presentation. 0.86 -Symptomatic Anemia of chronic kidney disease Follow H&H -Obesity BMI 34.3 Weight loss measures. Follow-up with PCP -Diabetes mellitus type 2 , diet-controlled Follow Accu-Cheks -Coronary artery disease with prior history of bypass Aspirin, Coreg, Plavix -Diabetic peripheral neuropathy -Chronic low back pain from arthritis Tylenol as needed -Chronic medical debility Uses a motorized wheelchair -Secondary severe pulmonary hypertension Follow clinically -Moderate mitral and moderate to severe tricuspid regurgitation Follow clinically -Bilateral renal calculi -Asymptomatic choledocholithiasis BiPAP-90%. IV dexamethasone. IV daptomycin. Prognosis guarded. TPN and lipids ordered.
[2021-06-23] MEDS ORDERED: [UNRECOGNIZED DRUG - REMARK] IV SCH ×5 (15:00)
[2021-06-23 16:54] LABS: Glucose,Whole Blood 158 mg/dL (75-99)
--- NOTE | 2021-06-23 19:27 | PN ---
PROGRESS NOTE DATE OF SERVICE: 06/23/2021 REASON FOR FOLLOWUP: 1. UTI. 2. COVID-19 infection. INTERVAL HISTORY: The patient is afebrile. The patient remains BiPAP-dependent. She is hemodynamically stable. Denies having any chest pain or any worsening cough. No abdominal pain or diarrhea. PHYSICAL EXAMINATION: Blood pressure 130/62 with a pulse of 94, temperature 98.6. She is 96% on BiPAP. GENERAL DESCRIPTION: General description is a middle-aged female up in the bed in no distress. RESPIRATORY SYSTEM: Unlabored breathing. Decreased intensity of breath sounds. No wheeze. HEART: S1, S2. Regular rate and rhythm. ABDOMEN: Soft. No tenderness. LAB DATA: Hemoglobin is white count 14.2, BUN of , creatinine 0.86. DIAGNOSTIC IMPRESSION AND PLAN: 1. Patient with VRE urinary tract infection, covered with daptomycin. 2. Patient with COVID-19 pneumonia, covered with dexamethasone, Lovenox, zinc, ascorbic acid along with respiratory support. Prognosis remains guarded. MMODL / IJN: [id number] /
[2021-06-23 20:12] LABS: Glucose,Whole Blood 188 mg/dL (75-99)
[2021-06-23] MEDS: ENOXAPARIN 100 MG/ML SYRINGE SQ SCH (20:45)
[2021-06-24] MEDS: SODIUM BICARBONATE TAB 650 MG TAB PO SCH ×4 (00:19→19:41)
[2021-06-24] MEDS: ALBUTEROL HFA INHALER INHALATION SCH ×5 (04:10→20:47)
[2021-06-24 06:13] LABS: Glucose,Whole Blood 234 mg/dL (75-99)
[2021-06-24] MEDS: INSULIN ASPART (NovoLOG) 100 UNIT/ML VIAL SQ SCH ×4 (06:33→22:41)
[2021-06-24] MEDS: carvediloL 3.125 MG TAB PO SCH ×2 (08:05→19:41)
[2021-06-24] MEDS: ALPRAZolam 0.25 MG TAB PO SCH ×3 (08:05→19:41)
[2021-06-24] MEDS: MULTIVITAMINS, THERA 1 EACH TAB PO SCH (08:05)
[2021-06-24] MEDS: CALCIUM CARB-VIT D 500 MG-5 MCG TAB PO SCH (08:05)
[2021-06-24] MEDS: CLOPIDOGREL 75 MG TAB PO SCH (08:05)
[2021-06-24] MEDS: ZINC SULFATE 220 MG CAP PO SCH (08:05)
[2021-06-24] MEDS: DEXAMETHASONE SOD PHOSPHATE 10 MG/ML 1 ML VIAL IV SCH ×2 (08:06→19:42)
[2021-06-24] MEDS: ENOXAPARIN 100 MG/ML SYRINGE SQ SCH ×2 (08:06→19:42)
[2021-06-24] MEDS: CHOLECALCIFEROL 10 MCG (400 IU) TABLET PO SCH (08:07)
[2021-06-24] MEDS: DEXTROSE 5% IN WATER 1,000 ML IV SCH ×2 (08:12→14:53)
[2021-06-24] MEDS: ASCORBIC ACID 500 MG TAB PO SCH ×3 (08:12→17:18)
[2021-06-24 08:17] LABS: Calcium 7.9 mg/dL (8.4-10.2); Magnesium 1.8 mg/dL (1.6-2.3); Phosphorus 3.4 mg/dL (2.5-4.5); Potassium 3.9 mmol/L (3.5-5.1)
[2021-06-24 08:23] LABS: C Reactive Protein 14.1 mg/dL (<1.0)
[2021-06-24] MEDS: TIOTROPIUM 2.5 MCG INHALER INHALATION SCH (09:43)
[2021-06-24] MEDS: traMADol-ACETAMINOP 37.5-325MG 1 EACH TAB PO PRN ×2 (10:14→19:51)
[2021-06-24] MEDS: MAGNESIUM SULFATE-D5W PMX 1 GM in DEXTROSE/WATER 1 100ML.BAG IVPB SCH ×2 (10:14→12:01)
[2021-06-24] MEDS ORDERED: FUROSEMIDE 10 MG/ML 4 ML VIAL IV STA (10:18)
--- NOTE | 2021-06-24 10:48 | XR ---
EXAMINATION TYPE: XR chest 1V portable DATE OF EXAM: 06/24/2021 COMPARISON: 06/23/2021 HISTORY: Shortness of breath TECHNIQUE: Single frontal view of the chest is obtained. FINDINGS: Views interstitial pattern with bilateral infiltrate and pleural effusion. Heart enlarged. Postoperative change. No pneumothorax. Arthropathy of the shoulders. IMPRESSION: Diffuse mixed interstitial alveolar pattern correlate for diffuse pneumonia. Findings st able.
[2021-06-24 11:39] LABS: Glucose,Whole Blood 253 mg/dL (75-99)
--- NOTE | 2021-06-24 14:00 | P.PN ---
Subjective Progress Note Date: 06/24/21 This is a 60-year-old female patient, undergoing rehab at the [facility], following her recent hospitalization for ESBL E. coli urinary tract infection, she was discharged to [facility] with the right upper arm PICC line in place in 12 days of Invanz. Patient had hydroureter on the right side, patient underwent right ureteral stent placement on 05/25/2021. Patient Also had a recent amputation of the right big toe by Dr. Scruggs on 05/21/2021. Patient has multiple medical problems including diabetes mellitus type 2, chronic kidney disease stage III, coronary artery disease with bypass, diabetic peripheral neuropathy, chronic low back pain, impaired gait, and patient uses a motorized wheelchair at baseline, most recently she is bedbound, valvular heart disease, severe secondary pulmonary hypertension, mitral and tricuspid regurgitation. Patient was also a former smoker. She is not oxygen dependent at baseline. On 06/17/2021 when she was brought into the emergency department for evaluation of altered mentation, and hypoxia. [facility] 06[facility]13/2021. She is very lethargic but she is able to answer some questions, she states she has had the cough and fever since last , 05/12/2021. Was no chest x-ray obtained in the emergency department. Patient was placed on 6 L of oxygen and her pulse ox was only around 92%. He was afebrile while in the emergency department. Her admission blood work showed a white blood cell, 3.5, hemoglobin was 8.4, platelet count was 118, d-dimer came back at 1.35, sodium was 135, potassium is 4.5, there was evidence of acute on chronic kidney disease, with BUN of 51 and creatinine of 2.55, and GFR was 23, LDH was 1892, troponins were 0.032, 0.0-8, and 0.0-4, proBNP was elevated at 26,300; urinalysis showed evidence of infected urine. In the ER Patient was given IV fluid boluses, and she was placed on 0.9 normal saline at a rate of 130 ML per hour. He remains on 6 L of oxygen her pulse ox is 99%, blood pressure stable, she is afebrile, lung sounds are positive for coarse crackles throughou t. Addition patient has open wound on the back of her right calf for which she polyps at the wound care clinic, the right great big toe amputation site is clean dry and intact, sutures are intact. She has a superficial macerated area on her coccyx. Blood cultures are pending at this time. 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 Denies any difficulty breathing, lung sounds reveal diffuse crackles bilaterally, currently she is on 8 L of oxygen and her pulse ox is 87-88%, the FiO2 was then increased to 10 L, and her pulse ox is around 90%. No coughing, no phlegm production, no chest discomfort. No fever or chills overnight, vital signs have been stable, breathing is nonlabored, yesterday's chest x-ray showed diffuse bilateral infiltrates and small pleural effusion. We'll cut back IV fl uids to 50 ML yesterday, however overnight there were increased again to 130 ML per hour, patient does have generalized edema and diffuse crackles bilaterally, given fluid boluses in the emergency department, and her proBNP was significantly elevated on admission. Today's labs have been reviewed, and her renal profile is relatively stable, with the BUN of 56 and creatinine of 2.49. Urine output is difficult to estimate as the patient is incontinent of urine and has a brief on. Patient is receiving wound care treatments to her right lower extremity posterior messer area wound, and the area of recent right great big toe amputation. No other acute events overnight. Patient is currently Invanz, ID service is following, blood and urine cultures have been sent and are pending at this time On today's evaluation on 06/19/2021 patient is seen in follow-up on selective care unit, she is currently on 15 L per high flow nasal cannula, and nonrebreather mask was added and her pulse ox on those settings were marginal around 90-91%, patient is lethargic, she appears to be in no acute respiratory distress, she easily wakes up to verbal stimulation, answers appropriately, no fever or chills, vital signs have been stable, she is mostly bed bound for the most part. She remains on Decadron 6 mg daily, she is on antibiotics in the form of Invanz for possibility of recurrent ESBL urinary tract infection, ID service is following, patient was a poor candidate for Remdesivir, she is not a candidate for bariticinib in view of ongoing bacterial infection, lung sounds are positive for scattered crackles, yesterday's chest x-ray showed diffuse bilateral infiltrates with a right-sided pleural effusion. Patient has been on IV fluids since admission. She still has 0.9 normal saline infusing at a rate of 50 ML per hour. Today's labs have been reviewed, her white blood cell count is 4.8, hemoglobin is 8.4, d-dimer is 0.92, sodium is 139, potassium is 4.0, chloride is 111, B1 is 59, creatinine is 1.82, which is improved from yesterday. No chest discomfort, she is breathing fairly comfortably, lethargic muscle time, she states it's not too far off her baseline. She sleeps for the most pa rt during the day in between meals at the [facility]. She is oriented 3, when asked about CODE STATUS she specifically said that she did not want intubation. Rapid response team was called on her this afternoon in regards to low O2 saturations however patient's respiratory status was relatively stable, there was no increased work of breathing, she was on the same amount of oxygen, she did go on BiPAP support which she is tolerating very well, and her subsequent O2 saturations did improve to 98%, she continued on all the same treatments. And she remains on selective care unit. On today's evaluation on 06/20/2021 patient seen in follow-up on selective care unit, she is currently on BiPAP support, with pressures of 15/5, and FiO2 is currently down to 70%, her pulse ox is 92 and 93%, she is afebrile, hemodynamically she stable, she is awake and alert, complaints of chest pain, she is complaining of having a dry mouth. Does not appear to be in any acute distress. Today's chest x-ray shows stable diffuse interstitial pattern with bilateral infiltrates and small pleural effusion. She continues on Decadron, she continues on vitamins, she is on Invanz for urinary tract infection, initial urine culture has shown no growth, repeat urine culture was sent, and pending at this time, blood cultures have been negative, today's labs have been reviewed. D-dimer is 1.22, not significantly increased from yesterday, her LDH has slightly came down, and currently down to 2023, CRP is 3.1. Procalcitonin level came back at 0.63. She received a dose of IV Lasix, she is a negative fluid balance, overall oxygenation is improved, and we were able to come down on her FiO2 down to 70%. Appetite is poor, overall she is tired, she sleeps a lot. Patient does not seem to be uncomfortable, yesterday she said that she did not want to be intubated. Her CODE STATUS at this point is full code with no intubation. On today's evaluation on 06/21/2021 patient seen in follow-up on selective care unit, she remains on BiPAP support with pressures of 15/5, and FiO2 of 95%. Apparently when the mask is removed she rapidly desaturates to 50% even when the mask is off very briefly for her to take a sip of water take medications, at this time she is very BiPAP dependent. She denies any chest pain, she has been afebrile. Hemodynamically she has been stable. She is on 0.9 normal saline at a rate of 20 ML per hour, she has not been able to take in much in the way of oral intake related to the fact that she is BiPAP dependent. Yesterday's chest x-ray shows diffuse interstitial pattern with bilateral infiltrates and small pleural effusion. Patient continues on Decadron, she is on Invanz for wrist history of ESBL E. coli, her urine culture from September admission is showing enterococcus faecium and Jeimy albicans. ID service is following and managing the antibiotics. On 06/22/2021 patient seen in follow-up on selective care unit, nursing reports that she's been pretty much BiPAP dependent, she easily desaturates when the mask is removed, she has remained on BiPAP support. He much continuously, with pressures of 15/5, and FiO2 is currently down to 75%, pulse ox is 93%, low-grade fever today, with a temp of 100.1F, however appears to be in no acute respiratory distress. She is very thirsty, she is asking for drink, she has not been able to take in much in the way of oral intake related to continue his BiPAP support, nursing reports that they have not given her a trial of high flow nasal cannula yet even for short periods of time. She denies any chest discomfort, she remains on Decadron 6 mg daily for COVID-19 pneumonia, she is also on antibiotics currently on daptomycin, Invanz was discontinued, urine culture was positive for vancomycin-resistant enterococcus faecium. Blood cultures have been negative. On 06/23/2021 patient seen in follow-up on selective care unit, she remains pretty much BiPAP dependent, FiO2 was increased to 100% in view of hypoxia, and O2 sats below 85%, patient is awake and alert, she is able to answer some simple questions, she is short of breath at rest, but no acute distress, chest x-ray findings reveal worsening bilateral infiltrates. She has not tolerated high flow nasal cannula trials, she desats quite rapidly on the nasal cannula and her oral intake has been limited regarding to that. She is on Decadron 6 mg daily, we have been unable to offer her monoclonal antibodies related to an active infection, she is on antibiotics, her urine showed vancomycin-resistant enterococcus, and her current antibiotic coverage is daptomycin. ID service is following, patient is on maintenance IV fluids with 0.9 normal saline at a rate of 20 ML per hour, she has only been able to take sips of water with meds, her sodium today is on the rise and is up to 146, potassium is 4.7, chloride is 113, BUN is 40, creatinine 0.86, white blood cell count is 14.2, hemoglobin was 10.1, d-dimer has significantly increased and is up to 23.4 on today's labs. When she has been just on prophylactic dose Lovenox 40 mg daily, her CRP is 5.3, LDH is pending for today. On 06/24/2021 patient to follow up on selective care unit. She remains on BiPAP , at 15 and 5, and FiO2 is 80%. She desaturates quite easily, she has been BiPAP dependent for the most part, yesterday we increased her dose of Decadron to 6 L twice daily, she has not been able to come off the BiPAP support long enough to sustain her oral nutrition, she is able to take some sips of water with pills, however in view of her decreased oral intake TPN was started yesterday, today's chest x-ray showing diffuse mixed interstitial alveolar pattern, and patient will receive a dose of Lasix today. Yesterday we place the exhalation on therapeutic doses of Lovenox, her d-dimer slightly improved, however still significantly elevated at 20.5 on today's labs, sodium is 148, potassium 3.8, chloride is 150, BUN is 41 creatinine 0.89. LDH today is 1654, and CRP is 14.1, patient remains on antibiotics for acute VRE urinary tract infection. Objective - Vital Signs Vital signs: Vital Signs Temp 99.1 F 06/24/21 12:00 Pulse 82 06/24/21 12:00 Resp 28 H 06/24/21 12:00 BP 146/67 06/24/21 12:00 Pulse Ox 92 L 06/24/21 12:00 Intake & Output 06/23/21 06/24/21 06/24/21 18:59 06:59 18:59 Intake Total 460 240 Output Total 300 350 Balance 460 -300 -110 Weight 91.5 kg Intake: Intake, IV Titration 260 Amount Mvi, Adult No.4 with Vit 60 K 10 ml Trace (Conc-1Ml/ Dose) 1 ml Calcium Gluconate 1 gm Magnesium Sulfate gm 1 gm In Amino Acid 5%-D15w 1,000 ml @ 65 mls/hr IV .BY DURATION DAVIE Rx#:[id number] Sodium Chloride 0.9% 1, 200 000 ml @ 20 mls/hr IV . Q24H DAVIE Rx#:[id number] Oral 200 240 Output: Urine 300 350 Other: Voiding Method Indwelling Catheter Indwelling Catheter Indwelling Catheter - Exam GENERAL EXAM: Very pleasant, 60-year-old, but arousable, 60-year-old white female, on BiPAP support with pressures of 15/5, and FiO2 of 90% with a pulse ox of 92% breathing fairly comfortably in no apparent distress. HEAD: Normocephalic/atraumatic. EYES: Normal reaction of pupils, equal size. Conjunctiva pink, sclera white. NOSE: Clear with pink turbinates. THROAT: No erythema or exudates. NECK: No masses, no JVD, no thyroid enlargement, no adenopathy. CHEST: No chest wall deformity. Symmetrical expansion. LUNGS: Equal air entry with coarse crackles throughout CVS: Regular rate and rhythm, normal S1 and S2, no gallops, no murmurs, no rubs ABDOMEN: Soft, nontender. No hepatosplenomegaly, normal bowel sounds, no guarding or rigidity. EXTREMITIES: No clubbing, no edema, no cyanosis, 2+ pulses and upper and lower extremities. Left [id number] amputation, right great big toe amputation site clean dry and intact, sutures clean dry and intact, reich area on the back of her right calf, bleeding, does not appear to be infected, surrounding area is extremely flaky, and dry MUSCULOSKELETAL: Muscle strength and tone normal. SPINE: No scoliosis or deformity SKIN: No rashes CENTRAL NERVOUS SYSTEM: Alert and oriented -2. No focal deficits, tone is normal in all 4 extremities. PSYCHIATRIC: Alert and oriented -2. Appropriate affect. Intact judgment and insight. - Labs CBC & Chem 7: 06/23/21 07:34 06/24/21 07:26 Labs: Abnormal Lab Results - Last 24 Hours (Table) 06/23/21 06/23/21 06/23/21 Range/Units 13:52 16:51 20:09 D-Dimer (<0.60) mg/L FEU Sodium (137-145) mmol/L Chloride (98-107) mmol/L BUN (7-17) mg/dL Glucose (74-99) mg/dL POC Glucose (mg/dL) 158 H 188 H (75-99) mg/dL Calcium (8.4-10.2) mg/dL Lactate Dehydrogenase (313-618) U/L C-Reactive Protein (<1.0) mg/dL Triglycerides 167.0 H (0.0-149.0) mg/dL 06/24/21 06/24/21 06/24/21 Range/Units 06:11 07:26 07:26 D-Dimer 20.50 H (<0.60) mg/L FEU Sodium (137-145) mmol/L Chloride (98-107) mmol/L BUN (7-17) mg/dL Glucose (74-99) mg/dL POC Glucose (mg/dL) 234 H (75-99) mg/dL Calcium (8.4-10.2) mg/dL Lactate Dehydrogenase 1654 H (313-618) U/L C-Reactive Protein 14.1 H (<1.0) mg/dL Triglycerides (0.0-149.0) mg/dL 06/24/21 06/24/21 Range/Units 07:26 11:37 D-Dimer (<0.60) mg/L FEU Sodium 148 H (137-145) mmol/L Chloride 115 H (98-107) mmol/L BUN 41 H (7-17) mg/dL Glucose 238 H (74-99) mg/dL POC Glucose (mg/dL) 253 H (75-99) mg/dL Calcium 7.9 L (8.4-10.2) mg/dL Lactate Dehydrogenase (313-618) U/L C-Reactive Protein (<1.0) mg/dL Triglycerides (0.0-149.0) mg/dL Microbiology - Last 24 Hours (Table) 06/21/21 23:15 Urine Culture - Final Urine,Voided Jeimy albicans Enterococcus faecium VRE Assessment and Plan Plan: Assessment: #1. Acute hypoxic respiratory failure related to acute COVID-19 pneumonia, and there is a possibility of acute exacerbation of CHF with systolic dysfunction. Patient tested positive for COVID-19 on 06/13/2021. Patient was not offered Remdesivir in view of acute kidney injury, and unclear onset of her symptomology. Her hypoxia has progressed, she is currently on BiPAP support with pressures of 15/5 and FiO2 of 90%. Unable to offer her monoclonal antibody related to active infection #2. Acute Vancomycin Resistant Enterococcus Faecium urinary tract infection, currently on Daptomycin #3. Recent hospitalization for ESBL E. coli urinary tract infection #4. Recent right great big toe amputation for nonhealing wound on 05/21/2021 #5. Recent history of right hydronephrosis with ureteral stent placement on 05/25/2021 #6. Acute on chronic kidney disease #7. Valvular heart disease, with moderate MR, and moderate to severe tricuspid regurgitation, and severe pulmonary hypertension with right-sided pressure of 88.5 mmHg #8. Reported history of COPD, not oxygen dependent at baseline #9. Former smoker #10. Diabetes mellitus, with diabetic neuropathy #11. Chronic kidney disease stage III at baseline #12. Peripheral vascular disease with previous history of left [id number] amputation #13. Nonhealing wound on the right lower leg posterior messer area, patient follows at the wound care center #14. Urinary artery disease with previous history of bypass grafting #15. Previous history of myocardial infarction #16. Rheumatoid arthritis Plan: Today's chest x-ray findings show worsening bilateral pulmonary infiltrates Remains BiPAP dependent, with pressures of 15/5, and FiO2 of 80% We'll give the patient on dose of IV Lasix 40 mg We'll continue Decadron 61 g twice daily Continue therapeutic doses of Lovenox, d-dimer slightly improved however still significantly elevated Continue D5W at 50, and patient is also on TPN infusion, this can be adjusted per pharmacy Antibiotics per ID service recommendations Overall prognosis is quite poor Patient medically at that she wants no intubation If she fails to progress and show improvement in her pulmonary status it would be appropriate to readdress her CODE STATUS again and recommended palliative care hospice I performed a history & physical examination of the patient and discussed their management with my nurse practitioner, Kaya Sorensen. I reviewed the nurse practitioner's note and agree with the documented findings and plan of care. Lung sounds are positive for diminished breath sounds throughout the lung zambrano. The findings and the impression was discussed with the patient. I attest to the documentation by the nurse practitioner. Time with Patient: Less than 30
[2021-06-24 16:49] LABS: Glucose,Whole Blood 353 mg/dL (75-99)
--- NOTE | 2021-06-24 17:37 | P.PN ---
Progress Note - Text Progress Note Date: 06/24/21 Chief Complaint: Hypoxemia History of presenting complaint: This is a pleasant 60-year-old patient, visiting physicians Dr. Garcia. Chronic stable medical conditions include (above-knee amputation, chronic wound on the right lower extremity being followed by Dr. Scruggs from vascular, at the wound care center by Lauren, and also has home care. Chronic kidney disease stage III, diabetes mellitus type 2, hyperlipidemia, coronary artery disease with bypass, diabetic peripheral neuropathy, lower back pain from arthritis, uses a motorized wheelchair at baseline, severe secondary pulmonary hypertension, mitral and tricuspid regurgitation. May 10 discharged from the hospital , following debridement of the right lower extremity. Suggestion was made for amputation of the toe. Patient was seen at the wound care center on this . discharged from the hospital May 28. Patient had a acute UTI with right ureter hydronephrosis with positive blood cultures E. coli/ESBL. Underwent right big toe ray amputation by Dr. Scruggs. Also underwent stent placement to the right ureter on May [address] Van. Discharged on IV Invanz. Patient will now sent in from the ECF for becoming hypoxic. Pulse ox was in low 90s on 6 L. Patient's diet. Decreased oral intake. Shortness of breath. Some cough. Patient was positive for COVID on May 13. Because of increasing oxygen requirement patient was sent in. Patient rather tired. Patient did eat her breakfast this morning. Easily tired Admitted with COVID-19 pneumonia, acute hypoxic respiratory failure, metabolic encephalopathy. Placed on IV Decadron. Also UTI. Acute kidney injury 06/18/2021: More awake today. Eating. Shortness of breath. Nasal cannula. On IV Decadron. Lovenox increased to therapeutic dose given the increased d-dimer. Also IV Ertapenem for UTI. IV fluids. 90% on 15 L high flow oxygen 06/19/2021: Declining bed. Tired. Eating about 25%. Tired. Short of breath. 15 L of oxygen. On IV steroids. IV ertapenem for the UTI. Tired. 06/20/2021: On BiPAP. 70%. Tired. Has not eaten today. Lethargic. June 21: On BiPAP. Short of breath. Diet. Unable to eat. Anxious. IV dexamethasone. IV ertapenem. 06/22/2021: Remains on BiPAP. Tired. Short of breath at rest. Not eating. I did talk to the patient that she should take it isn't sure. Spoke to the aide to assist with feeding. 06/23/2021: 1 BiPAP. Tired. Short of breath. Barely eating. TPN lipids have been ordered. Patient does have a PICC line. 06/24/2021: On BiPAP at 80%. IV Decadron. Tired. TPN started yesterday. Lovenox dose is being adjusted by pulmonary. Review of systems: Attempted for constitutional, cardiovascular, GI, pulmonary. relevant finding as above Active Medications Albuterol Sulfate (Albuterol Hfa Inhaler) 2 puff INHALATION RT-Q6H PRN PRN Reason: Shortness Of Breath Or Wheezing Albuterol Sulfate (Albuterol Hfa Inhaler) 2 puff INHALATION RT-Q4H [facility] Last Admin: 06/24/21 16:22 Dose: 2 puff Documented by: Alprazolam (Alprazolam 0.25 Mg Tab) 0.25 mg PO TID [facility] Last Admin: 06/24/21 17:18 Dose: 0.25 mg Documented by: Ascorbic Acid (Ascorbic Acid 500 Mg Tab) 500 mg PO TID@0800,1200,1800 [facility] Last Admin: 06/24/21 17:18 Dose: 500 mg Documented by: Calcium Carbonate (Calcium Carb-Vit D 500 Mg-5 Mcg Tab) 1 each PO DAILY@0800 [facility] Last Admin: 06/24/21 08:05 Dose: 1 each Documented by: Carvedilol (Carvedilol 3.125 Mg Tab) 3.125 mg PO BID [facility] Last Admin: 06/24/21 08:05 Dose: 3.125 mg Documented by: Cholecalciferol (Cholecalciferol 10 Mcg (400 Iu) Tablet) 10 mcg PO DAILY [facility] Last Admin: 06/24/21 08:07 Dose: 10 mcg Documented by: Clopidogrel Bisulfate (Clopidogrel 75 Mg Tab) 75 mg PO DAILY@0800 [facility] Last Admin: 06/24/21 08:05 Dose: 75 mg Documented by: Dexamethasone Sodium Phosphate (Dexamethasone Sod Phosphate 10 Mg/Ml 1 Ml Vial) 6 mg IV BID [facility] Last Admin: 06/24/21 08:06 Dose: 6 mg Documented by: Enoxaparin Sodium (Enoxaparin 100 Mg/Ml Syringe) 90 mg SQ Q12HR [facility] Last Admin: 06/24/21 08:06 Dose: 90 mg Documented by: Daptomycin 400 mg/ Sodium (Chloride) 50 mls @ 100 mls/hr IVPB Q24H [facility]; Protocol Last Admin: 06/23/21 21:30 Dose: 100 mls/hr Documented by: Dextrose/Water (Dextrose 5%-Water Iv Soln) 1,000 mls @ 50 mls/hr IV .Q20H [facility] Last Admin: 06/24/21 14:53 Dose: Not Given Documented by: Parenteral Vitamin Supplement 10 ml/ Zinc/Copper/Manganese/Selenium 1 ml/ Calcium Gluconate 1 gm/ Magnesium Sulfate 1 gm/ Amino Acids/Dextrose 1,023 mls @ 65 mls/hr IV .BY DURATION [facility] Calcium Gluconate 1 gm/Magnesium Sulfate 1 gm/ Amino Acids/Dextrose 1,012 mls @ 65 mls/hr IV .BY DURATION [facility] Fat Emulsion Intravenous 250 (ml/ IV Solution) 250 mls @ 21 mls/hr IV DAILY@1800 [facility] Parenteral Vitamin Supplement 10 ml/ Zinc/Copper/Manganese/Selenium 1 ml/ Calcium Gluconate 1 gm/ Magnesium Sulfate 1 gm/ Potassium Phosphate 15 mmol/ Amino Acids /Dextrose 1,028 mls @ 30 mls/hr IV .Q24H [facility] Stop: 06/26/21 16:59 Insulin Aspart (Insulin Aspart (Novolog) 100 Unit/Ml Vial) 0 unit SQ ACHS [facility]; Protocol Last Admin: 06/24/21 17:18 Dose: 8 unit Documented by: Loperamide HCl (Loperamide 2 Mg Cap) 2 mg PO Q6H PRN PRN Reason: Diarrhea Multivitamins (Multivitamins, Thera 1 Each Tab) 1 each PO DAILY [facility] Last Admin: 06/24/21 08:05 Dose: 1 each Documented by: Naloxone HCl (Naloxone 0.4 Mg/Ml 1 Ml Vial) 0.2 mg IV Q2M PRN PRN Reason: Opioid Reversal Ondansetron HCl (Ondansetron 4 Mg Tab) 4 mg PO Q6H PRN PRN Reason: Nausea And Vomiting Last Admin: 06/23/21 09:42 Dose: 4 mg Documented by: Sodium Bicarbonate (Sodium Bicarbonate Tab 650 Mg Tab) 650 mg PO TID@0000,0800,1600 [facility] Last Admin: 06/24/21 17:18 Dose: 650 mg Documented by: Tiotropium [place] (Tiotropium 2.5 Mcg Inhaler) 2 puff INHALATION RT-DAILY [facility] Last Admin: 06/24/21 09:43 Dose: 2 puff Documented by: Tramadol/Acetaminophen (Tramadol-Acetaminop 37.5-325mg 1 Each Tab) 1 each PO Q8H PRN PRN Reason: Pain Last Admin: 06/24/21 10:14 Dose: 1 each Documented by: Zinc Sulfate (Zinc Sulfate 220 Mg Cap) 220 mg PO DAILY [facility] Last Admin: 06/24/21 08:05 Dose: 220 mg Documented by: Past medical history to include: Left above-knee amputation, right big toe surgery amputation chronic kidney disease stage III, diabetes mellitus, hyperlipidemia, coronary artery disease with bypass, diabetic peripheral neuropathy, lower back pain from arthritis, GERD venous stasis ulcers, peripheral neuropathy, Social history: At [facility] currently. Motorized wheelchair. Home care. She was drinking heavily of April 1991. Smoking up to 3 packs a day up to 2011. Family history: Diabetes, [place], and resume, stroke Physical examination: VITAL SIGNS: 98.4, 84, 28, 137-62, 92% on BiPAP at 80% GENERAL: reclining bed, anxious short of breath LUNGS: Respiratory rate increased, PSYCH: Anxious, answering questions EXTREMITIES: Left above-knee amputation. Right lower foot ray amputation with dressing, Rest of the exam per pulmonary and nursing Investigations: June 24: Sodium 148 potassium 3.9 creatinine 0.89 CRP 14.1 d-dimer 20.5. Chest x-ray diffuse infiltrates June 23: White count 14.2 hemoglobin 10.1 d-dimer 23.41 June 21: D-dimer 2.99 potassium 5 BUN 53 creatinine 1.21 CRP 2.2 Urine culture: Enterococcus faecium, VRE, Jeimy June 20: Potassium 5 BUN 57 creatinine 1.47 June 19: White count 4.8 hemoglobin 8.4 platelets 133 potassium 4.9 BUN 59 creatinine 1.8 to d-dimer 0.9 to CRP 3.2 06/18/2021: WBC 2.1 hemoglobin 8.5 platelets 104 potassium 4.9 BUN 56 creatinine 2.49 pro-calcitonin 0.63 d-dimer 1.24 WBC 3.5 hemoglobin 8.4 platelets 118 potassium 4.5 BUN 51 and creatinine 2.55 EKG tracing personally reviewed by me: Sinus rhythm, rate 81 nonspecific T-wave changes Chest x-ray film personally reviewed by me: Bilateral infiltrates Previous testin-D echocardiogram: Moderate concentric LVH. EF 45-50%. Moderate to severe tricuspid regurgitation. Severe pulmonary hypertension. 05/27/2021: BUN 29 creatinine 1.11 platelets 26 hemoglobin 10.6 Assessment and plan: -Severe COVID-19 pneumonia: Not improving Dexamethasone 6 mg increased to twice a day. Subcu Lovenox-per pulmonary. Vitamin C vitamin D zinc. -Acute hypoxic respiratory failure from COVID-19 pneumonia: Worsening On BiPAP at 80% -Acute metabolic encephalopathy from pneumonia: Slow to respond Follow clinically - Ray amputation of infected right big toe on May [address] Scruggs. Recently completed a course of IV Invanz. Continue wound care -Acute UTI with cystitis in a patient with recent Acute right hydronephrosis and hydroureter from right ureter stone,: right ureter stent by Dr. Van -May 25. Completed course of IV Invanz VRE. IV Ertapenem-changed to IV daptomycin -Chronic kidney disease stage III from diabetic nephropathy and nephrosclerosis Follow renal function -Acute kidney injury, likely ATN from sepsis and decreased oral intake: Improved IV fluids. Creatinine 2.55 on presentation. 0.86 -Symptomatic Anemia of chronic kidney disease Follow H&H -Obesity BMI 34.3 Weight loss measures. Follow-up with PCP -Diabetes mellitus type 2 , diet-controlled Follow Accu-Cheks -Coronary artery disease with prior history of bypass Aspirin, Coreg, Plavix -Diabetic peripheral neuropathy -Chronic low back pain from arthritis Tylenol as needed -Chronic medical debility Uses a motorized wheelchair -Secondary severe pulmonary hypertension Follow clinically -Moderate mitral and moderate to severe tricuspid regurgitation Follow clinically -Bilateral renal calculi, asymptomatic -Asymptomatic choledocholithiasis -TPN and lipids for nutrition BiPAP-80%. IV dexamethasone. IV daptomycin. Prognosis guarded. TPN and lipids
[2021-06-24 18:17] LABS: Glucose,Whole Blood 326 mg/dL (75-99)
[2021-06-24] MEDS: FAT EMULSION 20% 250 ML in EMPTY BAG 1 BAG IV SCH (18:34)
--- NOTE | 2021-06-24 18:49 | PN ---
PROGRESS NOTE DATE OF SERVICE: 06/24/2021 REASON FOR FOLLOWUP: UTI and COVID-19 infection. INTERVAL HISTORY: The patient is afebrile. The patient remains sleepy, lethargic, still requiring BiPAP to support her oxygenation. Denies having any chest pain or any worsening cough. No abdominal pain or diarrhea. PHYSICAL EXAMINATION: Blood pressure 137/62 with a pulse of 84, temperature 98.4. She is 92% on BiPAP. GENERAL DESCRIPTION: General description is a middle-aged female lying in bed in no distress. RESPIRATORY SYSTEM: Unlabored breathing. Decreased intensity of breath sounds. No wheeze. HEART: S1, S2. Regular rate and rhythm. ABDOMEN: Soft. No tenderness. LABS: BUN of 41, creatinine 0.80. D-dimer is up to 2050. DIAGNOSTIC IMPRESSION AND PLAN: 1. Patient with VRE urinary tract infection, covered with daptomycin. 2. Patient with COVID-19 infection, worsening. Patient is currently on dexamethasone, Lovenox, along with respiratory support. Prognosis remains guarded. Continue supportive care. MMODL / IJN: [id number] /
[2021-06-24] MEDS: [UNRECOGNIZED DRUG - REMARK] IV SCH ×6 (20:05)
[2021-06-24] MEDS: INSULIN DETEMIR (LEVEMIR) 100 UNIT/ML SYR SQ SCH (20:25)
[2021-06-24 22:34] LABS: Glucose,Whole Blood 235 mg/dL (75-99)
[2021-06-25] MEDS ORDERED: ALBUTEROL HFA INHALER INHALATION ONE
[2021-06-25] MEDS: ALBUTEROL HFA INHALER INHALATION SCH ×6 (00:15→20:16)
[2021-06-25] MEDS: LORazepam 2 MG/ML INJ IV PRN (03:13)
[2021-06-25 06:21] LABS: Glucose,Whole Blood 113 mg/dL (75-99)
[2021-06-25] MEDS: DEXTROSE 5% IN WATER 1,000 ML IV SCH (07:59)
[2021-06-25] MEDS: INSULIN ASPART (NovoLOG) 100 UNIT/ML VIAL SQ SCH ×4 (07:59→22:53)
[2021-06-25 08:01] LABS: Calcium 8.1 mg/dL (8.4-10.2); Potassium 3.6 mmol/L (3.5-5.1)
[2021-06-25] MEDS: TIOTROPIUM 2.5 MCG INHALER INHALATION SCH (08:09)
[2021-06-25] MEDS: SODIUM BICARBONATE TAB 650 MG TAB PO SCH ×2 (08:19→16:54)
[2021-06-25] MEDS: carvediloL 3.125 MG TAB PO SCH ×2 (08:19→20:00)
[2021-06-25] MEDS: ASCORBIC ACID 500 MG TAB PO SCH ×3 (08:19→16:54)
[2021-06-25] MEDS: MULTIVITAMINS, THERA 1 EACH TAB PO SCH (08:19)
[2021-06-25] MEDS: ZINC SULFATE 220 MG CAP PO SCH (08:19)
[2021-06-25] MEDS: CALCIUM CARB-VIT D 500 MG-5 MCG TAB PO SCH (08:19)
[2021-06-25] MEDS: ALPRAZolam 0.25 MG TAB PO SCH ×3 (08:19→20:00)
[2021-06-25] MEDS: CHOLECALCIFEROL 10 MCG (400 IU) TABLET PO SCH (08:19)
[2021-06-25] MEDS: CLOPIDOGREL 75 MG TAB PO SCH (08:19)
[2021-06-25] MEDS: POTASSIUM CHLORIDE 10 MEQ in WATER FOR INJECTION 1 100ML.BAG IVPB SCH ×2 (09:16→10:02)
[2021-06-25] MEDS: DEXAMETHASONE SOD PHOSPHATE 10 MG/ML 1 ML VIAL IV SCH ×2 (09:16→20:02)
[2021-06-25] MEDS: ENOXAPARIN 100 MG/ML SYRINGE SQ SCH ×2 (09:17→20:02)
[2021-06-25 12:02] LABS: Glucose,Whole Blood 69 mg/dL (75-99)
[2021-06-25] MEDS ORDERED: DEXTROSE 50% SYRINGE 50 ML IVP ONE (12:39)
[2021-06-25 12:41] LABS: Glucose,Whole Blood 72 mg/dL (75-99)
[2021-06-25 14:45] LABS: Glucose,Whole Blood 91 mg/dL (75-99)
--- NOTE | 2021-06-25 15:11 | P.PN ---
Subjective Progress Note Date: 06/25/21 Principal diagnosis: Acute hypoxic respiratory failure secondary to COVID-19 pneumonia This is a 60-year-old female patient, undergoing rehab at the [facility], following her recent hospitalization for ESBL E. coli urinary tract infection, she was discharged to [facility] with the right upper arm PICC line in place in 12 days of Invanz. Patient had hydroureter on the right side, patient underwent right ureteral stent placement on 05/25/2021. Patient Also had a recent amputation of the right big toe by Dr. Scruggs on 05/21/2021. Patient has multiple medical problems including diabetes mellitus type 2, chronic kidney disease stage III, coronary artery disease with bypass, diabetic peripheral neuropathy, chronic low back pain, impaired gait, and patient uses a motorized wheelchair at baseline, most recently she is bedbound, valvular heart disease, severe secondary pulmonary hypertension, mitral and tricuspid regurgitation. Patient was also a former smoker. She is not oxygen dependent at baseline. On 06/17/2021 when she was brought into the emergency department for evaluation of altered mentation, and hypoxia. [facility]13/2021. She is very lethargic but she is able to answer some questions, she states she has had the cough and fever since last , 05/12/2021. Was no chest x-ray obtained in the emergency department. Patient was placed on 6 L of oxygen and her pulse ox was only around 92%. He was afebrile while in the emergency department. Her admission blood work showed a white blood cell, 3.5, hemoglobin was 8.4, platelet count was 118, d-dimer came back at 1.35, sodium was 135, potassium is 4.5, there was evidence of acute on chronic kidney disease, with BUN of 51 and creatinine of 2.55, and GFR was 23, LDH was 1892, troponins were 0.032, 0.0-8, and 0.0-4, proBNP was elevated at 2 6,300; urinalysis showed evidence of infected urine. In the ER Patient was given IV fluid boluses, and she was placed on 0.9 normal saline at a rate of 130 ML per hour. He remains on 6 L of oxygen her pulse ox is 99%, blood pressure stable, she is afebrile, lung sounds are positive for coarse crackles throughout. Addition patient has open wound on the back of her right calf for which she polyps at the wound care clinic, the right great big toe amputation site is clean dry and intact, sutures are intact. She has a superficial macerated area on her coccyx. Blood cultures are pending at this time. On 06/18/2021 patient seen in follow-up on selective care unit, she is sleepy, but she easily arouses to voice, she is answering questions appropriately, she states she leaks most of the time at the [facility] and this is her baseline. Denies any difficulty breathing, lung sounds reveal diffuse crackles bilaterally, currently she is on 8 L of oxygen and her pulse ox is 87-88%, the FiO2 was then increased to 10 L, and her pulse ox is around 90%. No coughing, no phlegm production, no chest discomfort. No fever or chills overnight, vital signs have been stable, breathing is nonlabored, yesterday's chest x-ray showed diffuse bilateral infiltrates and small pleural effusion. We'll cut back IV fluids to 50 ML yesterday, however overnight there were increased again to 130 ML per hour, patient does have generalized edema and diffuse crackles bilaterally, given fluid boluses in the emergency department, and her proBNP was significantly elevated on admission. Today's labs have been reviewed, and her renal profile is relatively stable, with the BUN of 56 and creatinine of 2.49. Urine output is difficult to estimate as the patient is incontinent of urine and has a brief on. Patient is receiving wound care treatments to her right lower extremity posterior messer area wound, and the area of recent right great big toe amputation. No other acute events overnight. Patient is currently Invanz, ID service is following, blood and urine cultures have been sent and are pending at this time On today's evaluation on 06/19/2021 patient is seen in follow-up on selective care unit, she is currently on 15 L per high flow nasal cannula, and nonrebreather mask was added and her pulse ox on those settings were marginal around 90-91%, patient is lethargic, she appears to be in no acute respiratory distress, she easily wakes up to verbal stimulation, answers appropriately, no fever or chills, vital signs have been stable, she is mostly bed bound for the most part. She remains on Decadron 6 mg daily, she is on antibiotics in the form of Invanz for possibility of recurrent ESBL urinary tract infection, ID service is following, patient was a poor candidate for Remdesivir, she is not a candidate for bariticinib in view of ongoing bacterial infection, lung sounds are positive for scattered crackles, yesterday's chest x-ray showed diffuse bilateral infiltrates with a right-sided pleural effusion. Patient has been on IV fluids since admission. She still has 0.9 normal saline infusing at a rate of 50 ML per hour. Today's labs have been reviewed, her white blood cell count is 4.8, hemoglobin is 8.4, d-dimer is 0.92, sodium is 139, potassium is 4.0, chloride is 111, B1 is 59, creatinine is 1.82, which is improved from yesterday. No chest discomfort, she is breathing fairly comfortably, lethargic muscle time, she states it's not too far off her baseline. She sleeps for the most part during the day in between meals at the [facility]. She is oriented 3, when asked about CODE STATUS she specifically said that she did not want intubation. Rapid response team was called on her this afternoon in regards to low O2 saturations however patient's respiratory status was relatively stable, there was no increased work of breathing, she was on the same amount of oxygen, she did go on BiPAP support which she is tolerating very well, and her subsequent O2 saturations did improve to 98%, she continued on all the same treatments. And she remains on selective care unit. On today's evaluation on 06/20/2021 patient seen in follow-up on selective care unit, she is currently on BiPAP support, with pressures of 15/5, and FiO2 is currently down to 70%, her pulse ox is 92 and 93%, she is afebrile, hemodynamically she stable, she is awake and alert, complaints of chest pain, sh e is complaining of having a dry mouth. Does not appear to be in any acute distress. Today's chest x-ray shows stable diffuse interstitial pattern with bilateral infiltrates and small pleural effusion. She continues on Decadron, she continues on vitamins, she is on Invanz for urinary tract infection, initial urine culture has shown no growth, repeat urine culture was sent, and pending at this time, blood cultures have been negative, today's labs have been reviewed. D-dimer is 1.22, not significantly increased from yesterday, her LDH has slightly came down, and currently down to 2023, CRP is 3.1. Procalcitonin level came back at 0.63. She received a dose of IV Lasix, she is a negative fluid balance, overall oxygenation is improved, and we were able to come down on her FiO2 down to 70%. Appetite is poor, overall she is tired, she sleeps a lot. Patient does not seem to be uncomfortable, yesterday she said that she did not want to be intubated. Her CODE STATUS at this point is full code with no intubation. On today's evaluation on 06/21/2021 patient seen in follow-up on selective care unit, she remains on BiPAP support with pressures of 15/5, and FiO2 of 95%. Apparently when the mask is removed she rapidly desaturates to 50% even when the mask is off very briefly for her to take a sip of water take medications, at this time she is very BiPAP dependent. She denies any chest pain, she has been afebrile. Hemodynamically she has been stable. She is on 0.9 normal saline at a rate of 20 ML per hour, she has not been able to take in much in the way of oral intake related to the fact that she is BiPAP dependent. Yesterday's chest x-ray shows diffuse interstitial pattern with bilateral infiltrates and small pleural effusion. Patient continues on Decadron, she is on Invanz for wrist history of ESBL E. coli, her urine culture from September admission is showing enterococcus faecium and Jeimy albicans. ID service is following and managing the antibiotics. On 06/22/2021 patient seen in follow-up on selective care unit, nursing reports that she's been pretty much BiPAP dependent, she easily desaturates when the mask is removed, she has remained on BiPAP support. He much continuously, with pressures of 15/5, and FiO2 is currently down to 75%, pulse ox is 93%, low-grade fever today, with a temp of 100.1F, however appears to be in no acute respiratory distress. She is very thirsty, she is asking for drink, she has not been able to take in much in the way of oral intake related to continue his BiPAP support, nursing reports that they have not given her a trial of high flow nasal cannula yet even for short periods of time. She denies any chest discomf ort, she remains on Decadron 6 mg daily for COVID-19 pneumonia, she is also on antibiotics currently on daptomycin, Invanz was discontinued, urine culture was positive for vancomycin-resistant enterococcus faecium. Blood cultures have been negative. On 06/23/2021 patient seen in follow-up on selective care unit, she remains pretty much BiPAP dependent, FiO2 was increased to 100% in view of hypoxia, and O2 sats below 85%, patient is awake and alert, she is able to answer some simple questions, she is short of breath at rest, but no acute distress, chest x-ray findings reveal worsening bilateral infiltrates. She has not tolerated high flow nasal cannula trials, she desats quite rapidly on the nasal cannula and her oral intake has been limited regarding to that. She is on Decadron 6 mg daily, we have been unable to offer her monoclonal antibodies related to an active infection, she is on antibiotics, her urine showed vancomycin-resistant enterococcus, and her current antibiotic coverage is daptomycin. ID service is following, patient is on maintenance IV fluids with 0.9 normal saline at a rate of 20 ML per hour, she has only been able to take sips of water with meds, her sodium today is on the rise and is up to 146, potassium is 4.7, chloride is 113, BUN is 40, creatinine 0.86, white blood cell count is 14.2, hemoglobin was 10.1, d-dimer has significantly increased and is up to 23.4 on today's labs. When she has been just on prophylactic dose Lovenox 40 mg daily, her CRP is 5.3, LDH is pending for today. On 06/24/2021 patient to follow up on selective care unit. She remains on BiPAP, at 15 and 5, and FiO2 is 80%. She desaturates quite easily, she has been BiPAP dependent for the most part, yesterday we increased her dose of Decadron to 6 L twice daily, she has not been able to come off the BiPAP support long enough to sustain her oral nutrition, she is able to take some sips of water with pills, however in view of her decreased oral intake TPN was started yest rm, today's chest x-ray showing diffuse mixed interstitial alveolar pattern, and patient will receive a dose of Lasix today. Yesterday we place the exhalation on therapeutic doses of Lovenox, her d-dimer slightly improved, however still significantly elevated at 20.5 on today's labs, sodium is 148, potassium 3.8, chloride is 150, BUN is 41 creatinine 0.89. LDH today is 1654, and CRP is 14.1, patient remains on antibiotics for acute VRE urinary tract infection. Reevaluated today on 06/25/2021, patient remains on BiPAP, IPAP of 15 and EPAP of 5, FiO2 is 100%, patient is deteriorating. And she is desaturating down to the 70s at time. Patient does not seem to be making any significant improvement. Asked x-ray yesterday showed diffuse mixed interstitial process/diffuse pneumonia. Electrolytes today are normal except for elevated sodium of 147 renal profile showed a BUN of 48 creatinine 0.89. Her inflammatory markers have gone up LDH of 1654 and C-reactive protein is 14.1. Since all pointing to the fact that the patient is not doing too well. And I believe her clinical course is deteriorating in spite of of what has been done over the last 1 week. Objective - Vital Signs Vital signs: Vital Signs Temp 99.1 F 06/25/21 11:10 Pulse 103 H 06/25/21 11:10 Resp 39 H 06/25/21 11:10 BP 102/54 06/25/21 11:10 Pulse Ox 72 L 06/25/21 11:10 Intake & Output 06/24/21 06/25/21 06/25/21 18:59 06:59 18:59 Intake Total 240 170 Output Total 1150 450 Balance -910 -280 Intake: Intake, IV Titration 170 Amount Calcium Gluconate 1 gm 120 Magnesium Sulfate gm 1 gm In Amino Acid 5%-D15w 1, 000 ml @ 65 mls/hr IV .BY DURATION DAVIE Rx#: [id number] Dextrose 5% in Water 1, 50 000 ml @ 50 mls/hr IV . Q20H DAVIE Rx#:[id number] Oral 240 Output: Urine 1150 450 Other: Voiding Method Indwelling Catheter Indwelling Catheter Indwelling Catheter - Exam GENERAL EXAM: 60-year-old female sleeping, on BiPAP. And high FiO2. HEAD: Normocephalic/atraumatic. EYES: Normal reaction of pupils, equal size. Conjunctiva pink, sclera white. NOSE: Clear with pink turbinates. THROAT: No erythema or exudates. NECK: No masses, no JVD, no thyroid enlargement, no adenopathy. CHEST: No chest wall deformity. Symmetrical expansion. LUNGS: Equal air entry with coarse crackles throughout CVS: Regular rate and rhythm, normal S1 and S2, no gallops, no murmurs, no rubs ABDOMEN: Soft, nontender. No hepatosplenomegaly, normal bowel sounds, no guarding or rigidity. EXTREMITIES: No clubbing, no edema, no cyanosis, 2+ pulses and upper and lower extremities. Left [id number] amputation, right great big toe amputation site clean dry and intact, sutures clean dry and intact, reich area on the back of her right calf, bleeding, does not appear to be infected, surrounding area is extremely flaky, and dry MUSCULOSKELETAL: Muscle strength and tone normal. CENTRAL NERVOUS SYSTEM: Alert and oriented -2. No focal deficits, tone is normal in all 4 extremities. PSYCHIATRIC: Could not assess. - Labs CBC & Chem 7: 06/23/21 07:34 06/25/21 07:25 Labs: Abnormal Lab Results - Last 24 Hours (Table) 06/24/21 06/24/21 06/24/21 Range/Units 16:47 18:16 22:33 Sodium (137-145) mmol/L Chloride (98-107) mmol/L BUN (7-17) mg/dL Glucose (74-99) mg/dL POC Glucose (mg/dL) 353 H 326 H 235 H (75-99) mg/dL Calcium (8.4-10.2) mg/dL 06/25/21 06/25/21 06/25/21 Range/Units 06:18 07:25 12:00 Sodium 147 H (137-145) mmol/L Chloride 114 H (98-107) mmol/L BUN 48 H (7-17) mg/dL Glucose 101 H (74-99) mg/dL POC Glucose (mg/dL) 113 H 69 L (75-99) mg/dL Calcium 8.1 L (8.4-10.2) mg/dL 06/25/21 Range/Units 12:40 Sodium (137-145) mmol/L Chloride (98-107) mmol/L BUN (7-17) mg/dL Glucose (74-99) mg/dL POC Glucose (mg/dL) 72 L (75-99) mg/dL Calcium (8.4-10.2) mg/dL Microbiology - Last 24 Hours (Table) 06/21/21 23:15 Urine Culture - Final Urine,Voided Jeimy albicans Enterococcus faecium VRE Assessment and Plan Assessment: #1. Acute hypoxic respiratory failure related to acute COVID-19 pneumonia #2. 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 #3. Recent hospitalization for ESBL E. coli urinary tract infection #4. Recent right great big toe amputation for nonhealing wound on 05/21/2021 #5. Recent history of right hydronephrosis with ureteral stent placement on 05/25/2021 #6. Acute on chronic kidney disease #7. Valvular heart disease, with moderate MR, and moderate to severe tricuspid regurgitation, and severe pulmonary hypertension with right-sided pressure of 88.5 mmHg #8. Reported history of COPD, not oxygen dependent at baseline #9. Former smoker #10. Diabetes mellitus, with diabetic neuropathy #11. Chronic kidney disease stage III at baseline #12. Peripheral vascular disease with previous history of left [id number] amputation #13. Nonhealing wound on the right lower leg posterior messer area, patient follows at the wound care center #14. Urinary artery disease with previous history of bypass grafting #15. Previous history of myocardial infarction #16. Rheumatoid arthritis Recommendation: Continue present supportive care measures, I'm strongly recommending considering hospice on this patient, overall clinical picture does not seem to be bright or promising. Suggest hospice. In the meantime continue treatment plan as outlined. Time with Patient: Less than 30
--- NOTE | 2021-06-25 15:39 | P.PN ---
Progress Note - Text Progress Note Date: 06/25/21 Chief Complaint: Hypoxemia History of presenting complaint: This is a pleasant 60-year-old patient, visiting physicians Dr. Garcia. Chronic stable medical conditions include (above-knee amputation, chronic wound on the right lower extremity being followed by Dr. Scruggs from vascular, at the wound care center by Lauren, and also has home care. Chronic kidney disease stage III, diabetes mellitus type 2, hyperlipidemia, coronary artery disease with bypass, diabetic peripheral neuropathy, lower back pain from arthritis, uses a motorized wheelchair at baseline, severe secondary pulmonary hypertension, mitral and tricuspid regurgitation. May 10 discharged from the hospital , following debridement of the right lower extremity. Suggestion was made for amputation of the toe. Patient was seen at the wound care center on this . discharged from the hospital May 28. Patient had a acute UTI with right ureter hydronephrosis with positive blood cultures E. coli/ESBL. Underwent right big toe ray amputation by Dr. Scruggs. Also underwent stent placement to the right ureter on May [address] Van. Discharged on IV Invanz. Patient will now sent in from the ECF for becoming hypoxic. Pulse ox was in low 90s on 6 L. Patient's diet. Decreased oral intake. Shortness of breath. Some cough. Patient was positive for COVID on May 13. Because of increasing oxygen requirement patient was sent in. Patient rather tired. Patient did eat her breakfast this morning. Easily tired Admitted with COVID-19 pneumonia, acute hypoxic respiratory failure, metabolic encephalopathy. Placed on IV Decadron. Also UTI. Acute kidney injury 06/18/2021: More awake today. Eating. Shortness of breath. Nasal cannula. On IV Decadron. Lovenox increased to therapeutic dose given the increased d-dimer. Also IV Ertapenem for UTI. IV fluids. 90% on 15 L high flow oxygen 06/19/2021: Declining bed. Tired. Eating about 25%. Tired. Short of breath. 15 L of oxygen. On IV steroids. IV ertapenem for the UTI. Tired. 06/20/2021: On BiPAP. 70%. Tired. Has not eaten today. Lethargic. June 21: On BiPAP. Short of breath. Diet. Unable to eat. Anxious. IV dexamethasone. IV ertapenem. 06/22/2021: Remains on BiPAP. Tired. Short of breath at rest. Not eating. I did talk to the patient that she should take it isn't sure. Spoke to the aide to assist with feeding. 06/23/2021: 1 BiPAP. Tired. Short of breath. Barely eating. TPN lipids have been ordered. Patient does have a PICC line. 06/24/2021: On BiPAP at 80%. IV Decadron. Tired. TPN started yesterday. Lovenox dose is being adjusted by pulmonary. 06/25/2021: Not doing well. Rather lethargic. On BiPAP 100%. Hypoxic. TPN lipids. Nursing did contact patient's caregiver about the poor prognosis. Review of systems: Unable to obtain Active Medications Albuterol Sulfate (Albuterol Hfa Inhaler) 2 puff INHALATION RT-Q6H PRN PRN Reason: Shortness Of Breath Or Wheezing Albuterol Sulfate (Albuterol Hfa Inhaler) 2 puff INHALATION RT-Q4H [facility] Last Admin: 06/25/21 11:32 Dose: 2 puff Documented by: Alprazolam (Alprazolam 0.25 Mg Tab) 0.25 mg PO TID [facility] Last Admin: 06/25/21 08:19 Dose: Not Given Documented by: Ascorbic Acid (Ascorbic Acid 500 Mg Tab) 500 mg PO TID@0800,1200,1800 [facility] Last Admin: 06/25/21 11:17 Dose: Not Given Documented by: Calcium Carbonate (Calcium Carb-Vit D 500 Mg-5 Mcg Tab) 1 each PO DAILY@0800 [facility] Last Admin: 06/25/21 08:19 Dose: Not Given Documented by: Carvedilol (Carvedilol 3.125 Mg Tab) 3.125 mg PO BID [facility] Last Admin: 06/25/21 08:19 Dose: Not Given Documented by: Cholecalciferol (Cholecalciferol 10 Mcg (400 Iu) Tablet) 10 mcg PO DAILY [facility] Last Admin: 06/25/21 08:19 Dose: Not Given Documented by: Clopidogrel Bisulfate (Clopidogrel 75 Mg Tab) 75 mg PO DAILY@0800 [facility] Last Admin: 06/25/21 08:19 Dose: Not Given Documented by: Dexamethasone Sodium Phosphate (Dexamethasone Sod Phosphate 10 Mg/Ml 1 Ml Vial) 6 mg IV BID [facility] Last Admin: 06/25/21 09:16 Dose: 6 mg Documented by: Enoxaparin Sodium (Enoxaparin 100 Mg/Ml Syringe) 90 mg SQ Q12HR [facility] Last Admin: 06/25/21 09:17 Dose: 90 mg Documented by: Daptomycin 400 mg/ Sodium (Chloride) 50 mls @ 100 mls/hr IVPB Q24H [facility]; Protocol Last Admin: 06/24/21 19:41 Dose: 100 mls/hr Documented by: Dextrose/Water (Dextrose 5%-Water Iv Soln) 1,000 mls @ 50 mls/hr IV .Q20H [facility] Last Admin: 06/25/21 07:59 Dose: Not Given Documented by: Parenteral Vitamin Supplement 10 ml/ Zinc/Copper/Manganese/Selenium 1 ml/ Calcium Gluconate 1 gm/ Magnesium Sulfate 1 gm/ Amino Acids/Dextrose 1,023 mls @ 65 mls/hr IV .BY DURATION [facility] Calcium Gluconate 1 gm/Magnesium Sulfate 1 gm/ Amino Acids/Dextrose 1,012 mls @ 65 mls/hr IV .BY DURATION [facility] Fat Emulsion Intravenous 250 (ml/ IV Solution) 250 mls @ 21 mls/hr IV ELIEL LY@1800 [facility] Last Admin: 06/24/21 18:34 Dose: 21 mls/hr Documented by: Parenteral Vitamin Supplement 10 ml/ Zinc/Copper/Manganese/Selenium 1 ml/ Calcium Gluconate 1 gm/ Magnesium Sulfate 1 gm/ Potassium Phosphate 15 mmol/ Amino Acids /Dextrose 1,028 mls @ 30 mls/hr IV .Q24H [facility] Stop: 06/26/21 16:59 Last Admin: 06/24/21 20:05 Dose: 30 mls/hr Documented by: Insulin Aspart (Insulin Aspart (Novolog) 100 Unit/Ml Vial) 0 unit SQ ACHS [facility]; Protocol Last Admin: 06/25/21 12:43 Dose: Not Given Documented by: Insulin Detemir (Insulin Detemir (Levemir) 100 Unit/Ml Syr) 12 unit SQ HS [facility] Last Admin: 06/24/21 20:25 Dose: 12 unit Documented by: Loperamide HCl (Loperamide 2 Mg Cap) 2 mg PO Q6H PRN PRN Reason: Diarrhea Lorazepam (Lorazepam 2 Mg/Ml Inj) 0.5 mg IV Q6HR PRN PRN Reason: Anxiety Last Admin: 06/25/21 03:13 Dose: 0.5 mg Documented by: Multivitamins (Multivitamins, Thera 1 Each Tab) 1 each PO DAILY [facility] Last Admin: 06/25/21 08:19 Dose: Not Given Documented by: Naloxone HCl (Naloxone 0.4 Mg/Ml 1 Ml Vial) 0.2 mg IV Q2M PRN PRN Reason: Opioid Reversal Ondansetron HCl (Ondansetron 4 Mg Tab) 4 mg PO Q6H PRN PRN Reason: Nausea And Vomiting Last Admin: 06/23/21 09:42 Dose: 4 mg Documented by: Sodium Bicarbonate (Sodium Bicarbonate Tab 650 Mg Tab) 650 mg PO TID@0000,0800,1600 [facility] Last Admin: 06/25/21 08:19 Dose: Not Given Documented by: Tiotropium [place] (Tiotropium 2.5 Mcg Inhaler) 2 puff INHALATION RT-DAILY [facility] Last Admin: 06/25/21 08:09 Dose: Not Given Documented by: Tramadol/Acetaminophen (Tramadol-Acetaminop 37.5-325mg 1 Each Tab) 1 each PO Q8H PRN PRN Reason: Pain Last Admin: 06/24/21 19:51 Dose: 1 each Documented by: Zinc Sulfate (Zinc Sulfate 220 Mg Cap) 220 mg PO DAILY [facility] Last Admin: 06/25/21 08:19 Dose: Not Given Documented by: Past medical history to include: Left above-knee amputation, right big toe surgery amputation chronic kidney disease stage III, diabetes mellitus, hyperlipidemia, coronary artery disease with bypass, diabetic peripheral neuropathy, lower back pain from arthritis, GERD venous stasis ulcers, peripheral neuropathy, Social history: At [facility] currently. Motorized wheelchair. Home care. She was drinking heavily of April 1991. Smoking up to 3 packs a day up to 2011. Family history: Diabetes, [place], and resume, stroke Physical examination: VITAL SIGNS: 99.1, 103, 39, 102/54, 72% on BiPAP [100%] GENERAL: reclining bed, lethargic, short of breath LUNGS: Respiratory rate increased, bilateral crackles PSYCH: Unable to assess EXTREMITIES: Left above-knee amputation. Right lower foot ray amputation with dressing, Rest of the exam per pulmonary and nursing Investigations: June 25: Sodium 147 creatinine 0.89 June 24: Sodium 148 potassium 3.9 creatinine 0.89 CRP 14.1 d-dimer 20.5. Chest x-ray diffuse infiltrates June 23: White count 14.2 hemoglobin 10.1 d-dimer 23.41 June 21: D-dimer 2.99 potassium 5 BUN 53 creatinine 1.21 CRP 2.2 Urine culture: Enterococcus faecium, VRE, Jeimy June 20: Potassium 5 BUN 57 creatinine 1.47 June 19: White count 4.8 hemoglobin 8.4 platelets 133 potassium 4.9 BUN 59 creatinine 1.8 to d-dimer 0.9 to CRP 3.2 06/18/2021: WBC 2.1 hemoglobin 8.5 platelets 104 potassium 4.9 BUN 56 creatinine 2.49 pro-calcitonin 0.63 d-dimer 1.24 WBC 3.5 hemoglobin 8.4 platelets 118 potassium 4.5 BUN 51 and creatinine 2.55 EKG tracing personally reviewed by me: Sinus rhythm, rate 81 nonspecific T-wave changes Chest x-ray film personally reviewed by me: Bilateral infiltrates Previous testin-D echocardiogram: Moderate concentric LVH. EF 45-50%. Moderate to severe tricuspid regurgitation. Severe pulmonary hypertension. 05/27/2021: BUN 29 creatinine 1.11 platelets 26 hemoglobin 10.6 Assessment and plan: -Severe COVID-19 pneumonia: Worsening Dexamethasone 6 mg increased to twice a day. Subcu Lovenox-per pulmonary. Vitamin C vitamin D zinc. -Acute hypoxic respiratory failure from COVID-19 pneumonia: Worsening On BiPAP at 100% with a pulse ox of 72% -Acute metabolic encephalopathy from pneumonia: Worsening Follow clinically - Ray amputation of infected right big toe on May [address] Scruggs. Recently completed a course of IV Invanz. Continue wound care -Acute UTI with cystitis in a patient with recent Acute right hydronephrosis and hydroureter from right ureter stone,: right ureter stent by Dr. Van - May 25. Completed course of IV Invanz VRE. IV Ertapenem-changed to IV daptomycin -Chronic kidney disease stage III from diabetic nephropathy and nephrosclerosis Follow renal function -Acute kidney injury, likely ATN from sepsis and decreased oral intake: Improved IV fluids. Creatinine 2.55 on presentation. 0.86 -Symptomatic Anemia of chronic kidney disease Follow H&H -Obesity BMI 34.3 Weight loss measures. Follow-up with PCP -Diabetes mellitus type 2 , diet-controlled Follow Accu-Cheks -Coronary artery disease with prior history of bypass Aspirin, Coreg, Plavix -Diabetic peripheral neuropathy -Chronic low back pain from arthritis Tylenol as needed -Chronic medical debility Uses a motorized wheelchair -Secondary severe pulmonary hypertension Follow clinically -Moderate mitral and moderate to severe tricuspid regurgitation Follow clinically -Bilateral renal calculi, asymptomatic -Asymptomatic choledocholithiasis -TPN and lipids for nutrition Patient's clinically worsening. Prognosis poor. Continue with dexamethasone, BiPAP, TPN and lipids. Supportive care.
--- NOTE | 2021-06-25 15:50 | PN ---
PROGRESS NOTE DATE OF SERVICE: 06/25/2021 REASON FOR FOLLOWUP: 1. VRE urinary tract infection. 2. COVID-19 infection. INTERVAL HISTORY: The patient is afebrile. The patient is lethargic. The patient remains to be BiPAP- dependent and hypoxic. No vomiting, diarrhea or any other changes reported by the nursing staff. PHYSICAL EXAMINATION: Blood pressure 102/54 with a pulse of 103, temperature 99.1. GENERAL DESCRIPTION: General description is an elderly female lying in bed. Lethargic. No distress. RESPIRATORY SYSTEM: Unlabored breathing. Decreased intensity of breath sounds. HEART: S1, S2. Regular rate and rhythm. ABDOMEN: Soft. No tenderness. LABS: BUN of 48, creatinine 0.89. DIAGNOSTIC IMPRESSION AND PLAN: 1. Patient with VRE urinary tract infection, covered with daptomycin. 2. Patient with COVID-19 infection in this patient who seems to be showing of her overall condition. Covered with dexamethasone, Lovenox, zinc, ascorbic acid. Prognosis remains guarded. Monitor clinical course closely. MMODL / IJN: [id number] /
[2021-06-25 18:07] LABS: Glucose,Whole Blood 89 mg/dL (75-99)
[2021-06-25] MEDS: FAT EMULSION 20% 250 ML in EMPTY BAG 1 BAG IV SCH (18:19)
[2021-06-25 20:26] LABS: Glucose,Whole Blood 106 mg/dL (75-99)
[2021-06-25] MEDS: INSULIN DETEMIR (LEVEMIR) 100 UNIT/ML SYR SQ SCH (22:53)
[2021-06-25] MEDS: [UNRECOGNIZED DRUG - REMARK] IV SCH ×6 (23:24)
[2021-06-26 00:11] LABS: Glucose,Whole Blood 138 mg/dL (75-99)
[2021-06-26] MEDS: ALBUTEROL HFA INHALER INHALATION SCH ×7 (00:30→23:54)
[2021-06-26] MEDS: SODIUM BICARBONATE TAB 650 MG TAB PO SCH ×3 (03:00→15:06)
[2021-06-26] MEDS: DEXTROSE 5% IN WATER 1,000 ML IV SCH ×2 (03:01→20:59)
[2021-06-26 06:17] LABS: Glucose,Whole Blood 206 mg/dL (75-99)
[2021-06-26] MEDS: INSULIN ASPART (NovoLOG) 100 UNIT/ML VIAL SQ SCH ×4 (06:41→21:07)
[2021-06-26 07:18] LABS: Albumin 2.2 g/dL (3.5-5.0); Magnesium 2.2 mg/dL (1.6-2.3); Potassium 4.8 mmol/L (3.5-5.1); Total Bilirubin 0.6 mg/dL (0.2-1.3); Total Protein 5.7 g/dL (6.3-8.2)
[2021-06-26] MEDS: ALPRAZolam 0.25 MG TAB PO SCH ×3 (07:30→21:01)
[2021-06-26] MEDS: carvediloL 3.125 MG TAB PO SCH ×2 (07:30→21:00)
[2021-06-26] MEDS: ASCORBIC ACID 500 MG TAB PO SCH ×3 (07:30→16:15)
[2021-06-26] MEDS: CLOPIDOGREL 75 MG TAB PO SCH (07:30)
[2021-06-26] MEDS: CALCIUM CARB-VIT D 500 MG-5 MCG TAB PO SCH (07:30)
[2021-06-26] MEDS: ZINC SULFATE 220 MG CAP PO SCH (07:31)
[2021-06-26] MEDS: MULTIVITAMINS, THERA 1 EACH TAB PO SCH (07:31)
[2021-06-26] MEDS: CHOLECALCIFEROL 10 MCG (400 IU) TABLET PO SCH (07:31)
[2021-06-26] MEDS: ENOXAPARIN 100 MG/ML SYRINGE SQ SCH ×2 (07:38→21:07)
[2021-06-26] MEDS: DEXAMETHASONE SOD PHOSPHATE 10 MG/ML 1 ML VIAL IV SCH ×2 (07:38→21:05)
[2021-06-26] MEDS: LORazepam 2 MG/ML INJ IV PRN ×2 (07:41→18:38)
[2021-06-26] MEDS: TIOTROPIUM 2.5 MCG INHALER INHALATION SCH (08:34)
[2021-06-26 11:45] LABS: Glucose,Whole Blood 251 mg/dL (75-99)
--- NOTE | 2021-06-26 12:07 | P.PN ---
Subjective Progress Note Date: 06/26/21 Principal diagnosis: COVID-19 pneumonia This is a 60-year-old female patient, undergoing rehab at the [facility], following her recent hospitalization for ESBL E. coli urinary tract infection, she was discharged to [facility] with the right upper arm PICC line in place in 12 days of Invanz. Patient had hydroureter on the right side, patient underwent right ureteral stent placement on 05/25/2021. Patient Also had a recent amputation of the right big toe by Dr. Scruggs on 05/21/2021. Patient has multiple medical problems including diabetes mellitus type 2, chronic kidney disease stage III, coronary artery disease with bypass, diabetic peripheral neuropathy, chronic low back pain, impaired gait, and patient uses a motorized wheelchair at baseline, most recently she is bedbound, valvular heart disease, severe secondary pulmonary hypertension, mitral and tricuspid regurgitation. Patient was also a former smoker. She is not oxygen dependent at baseline. On 06/17/2021 when she was brought into the emergency department for evaluation of altered mentation, and hypoxia. She tested positive for COVID-19 at the retirement on 06/13/2021. She is very lethargic but she is able to answer some questions, she states she has had the cough and fever since last , 05/12/2021. Was no chest x-ray obtained in the emergency department. Patient was placed on 6 L of oxygen and her pulse ox was only around 92%. He was afebrile while in the emergency department. Her admission blood work showed a white blood cell, 3.5, hemoglobin was 8.4, platelet count was 118, d-dimer came back at 1.35, sodium was 135, potassium is 4.5, there was evidence of acute on chronic kidney disease, with BUN of 51 and creatinine of 2.55, and GFR was 23, LDH was 1892, troponins were 0.032, 0.0-8, and 0.0-4, proBNP was elevated at 26,300; urinalysis showed evidence of infected urine. In the ER Patient was given IV fluid boluses, and she was placed on 0.9 normal saline at a rate of 130 ML per hour. He remains on 6 L of oxygen her pulse ox is 99%, blood pressure stable, she is afebrile, lung sounds are positive for coarse crackles throughout. Addition patient has open wound on the back of her right calf for which she polyps at the wound care clinic, the right great big toe amputation site is clean dry and intact, sutures are intact. She has a superficial macerated area on her coccyx. Blood cultures are pending at this time. On 06/18/2021 patient seen in follow-up on selective care unit, she is sleepy, but she easily arouses to voice, she is answering questions appropriately, she states she leaks most of the time at the retirement and this is her baseline. Denies any difficulty breathing, lung sounds reveal diffuse crackles bilaterally, currently she is on 8 L of oxygen and her pulse ox is 87-88%, the FiO2 was then increased to 10 L, and her pulse ox is around 90%. No coughing, no phlegm production, no chest discomfort. No fever or chills overnight, vital signs have been stable, breathing is nonlabored, yesterday's chest x-ray showed diffuse bilateral infiltrates and small pleural effusion. We'll cut back IV fluids to 50 ML yesterday, however overnight there were increased again to 130 ML per hour, patient does have generalized edema and diffuse crackles bilaterally, given fluid boluses in the emergency department, and her proBNP was significantly elevated on admission. Today's labs have been reviewed, and her renal profile is relatively stable, with the BUN of 56 and creatinine of 2.49. Urine output is difficult to estimate as the patient is incontinent of urine and has a brief on. Patient is receiving wound care treatments to her right lower extremity posterior messer area wound, and the area of recent right great big toe amputation. No other acute events overnight. Patient is currently Invanz, ID service is following, blood and urine cultures have been sent and are pending at this time On today's evaluation on 06/19/2021 patient is seen in follow-up on selective care unit, she is currently on 15 L per high flow nasal cannula, and nonrebreather mask was added and her pulse ox on those settings were marginal around 90-91%, patient is lethargic, she appears to be in no acute respiratory distress, she easily wakes up to verbal stimulation, answers appropriately, no fever or chills, vital signs have been stable, she is mostly bed bound for the most part. She remains on Decadron 6 mg daily, she is on antibiotics in the form of Invanz for possibility of recurrent ESBL urinary tract infection, ID service is following, patient was a poor candidate for Remdesivir, she is not a candidate for bariticinib in view of ongoing bacterial infection, lung sounds are positive for scattered crackles, yesterday's chest x-ray showed diffuse bilateral infiltrates with a right-sided pleural effusion. Patient has been on IV fluids since admission. She still has 0.9 normal saline infusing at a rate of 50 ML per hour. Today's labs have been reviewed, her white blood cell count is 4.8, hemoglobin is 8.4, d-dimer is 0.92, sodium is 139, potassium is 4.0, chloride is 111, B1 is 59, creatinine is 1.82, which is improved from yesterday. No chest discomfort, she is breathing fairly comfortably, lethargic muscle time, she states it's not too far off her baseline. She sleeps for the most part during the day in between meals at the [facility]. She is oriented 3, when asked about CODE STATUS she specifically said that she did not want intubation. Rapid response team was called on her this afternoon in regards to low O2 saturations however patient's respiratory status was relatively stable, there was no increased work of breathing, she was on the same amount of oxygen, she did go on BiPAP support which she is tolerating very well, and her subsequent O2 saturations did improve to 98%, she continued on all the same treatments. And she remains on selective care unit. On today's evaluation on 06/20/2021 patient seen in follow-up on selective care unit, she is currently on BiPAP support, with pressures of 15/5, and FiO2 is currently down to 70%, her pulse ox is 92 and 93%, she is afebrile, hemodynamically she stable, she is awake and alert, complaints of chest pain, she is complaining of having a dry mouth. Does not appear to be in any acute distress. Today's chest x-ray shows stable diffuse interstitial pattern with bilateral infiltrates and small pleural effusion. She continues on Decadron, she continues on vitamins, she is on Invanz for urinary tract infection, initial urine culture has shown no growth, repeat urine culture was sent, and pending at this time, blood cultures have been negative, today's labs have been reviewed. D-dimer is 1.22, not significantly increased from yesterday, her LDH has slightly came down, and currently down to 2023, CRP is 3.1. Procalcitonin level came back at 0.63. She received a dose of IV Lasix, she is a negative fluid balance, overall oxygenation is improved, and we were able to come down on her FiO2 down to 70%. Appetite is poor, overall she is tired, she sleeps a lot. Patient does not seem to be uncomfortable, yesterday she said that she did not want to be intubated. Her CODE STATUS at this point is full code with no intubation. On today's evaluation on 06/21/2021 patient seen in follow-up on selective care unit, she remains on BiPAP support with pressures of 15/5, and FiO2 of 95%. Apparently when the mask is removed she rapidly desaturates to 50% even when the mask is off very briefly for her to take a sip of water take medications, at th is time she is very BiPAP dependent. She denies any chest pain, she has been afebrile. Hemodynamically she has been stable. She is on 0.9 normal saline at a rate of 20 ML per hour, she has not been able to take in much in the way of oral intake related to the fact that she is BiPAP dependent. Yesterday's chest x-ray shows diffuse interstitial pattern with bilateral infiltrates and small pleural effusion. Patient continues on Decadron, she is on Invanz for wrist history of ESBL E. coli, her urine culture from September admission is showing enterococcus faecium and Jeimy albicans. ID service is following and managing the antibiotics. On 06/22/2021 patient seen in follow-up on selective care unit, nursing reports that she's been pretty much BiPAP dependent, she easily desaturates when the mask is removed, she has remained on BiPAP support. He much continuously, with pressures of 15/5, and FiO2 is currently down to 75%, pulse ox is 93%, low-grade fever today, with a temp of 100.1F, however appears to be in no acute respiratory distress. She is very thirsty, she is asking for drink, she has not been able to take in much in the way of oral intake related to continue his BiPAP support, nursing reports that they have not given her a trial of high flow nasal cannula yet even for short periods of time. She denies any chest discomfort, she remains on Decadron 6 mg daily for COVID-19 pneumonia, she is also on antibiotics currently on daptomycin, Invanz was discontinued, urine culture was positive for vancomycin-resistant enterococcus faecium. Blood cultures have been negative. On 06/23/2021 patient seen in follow-up on selective care unit, she remains pretty much BiPAP dependent, FiO2 was increased to 100% in view of hypoxia, and O2 sats below 85%, patient is awake and alert, she is able to answer some simple questions, she is short of breath at rest, but no acute distress, chest x-ray findings reveal worsening bilateral infiltrates. She has not tolerated high fl ow nasal cannula trials, she desats quite rapidly on the nasal cannula and her oral intake has been limited regarding to that. She is on Decadron 6 mg daily, we have been unable to offer her monoclonal antibodies related to an active infection, she is on antibiotics, her urine showed vancomycin-resistant enterococcus, and her current antibiotic coverage is daptomycin. ID service is following, patient is on maintenance IV fluids with 0.9 normal saline at a rate of 20 ML per hour, she has only been able to take sips of water with meds, her sodium today is on the rise and is up to 146, potassium is 4.7, chloride is 113, BUN is 40, creatinine 0.86, white blood cell count is 14.2, hemoglobin was 10.1, d-dimer has significantly increased and is up to 23.4 on today's labs. When she has been just on prophylactic dose Lovenox 40 mg daily, her CRP is 5.3, LDH is pending for today. On 06/24/2021 patient to follow up on selective care unit. She remains on BiPAP, at 15 and 5, and FiO2 is 80%. She desaturates quite easily, she has been BiPAP dependent for the most part, yesterday we increased her dose of Decadron to 6 L twice daily, she has not been able to come off the BiPAP support long enough to sustain her oral nutrition, she is able to take some sips of water with pills, however in view of her decreased oral intake TPN was started yesterday, today's chest x-ray showing diffuse mixed interstitial alveolar pattern, and patient will receive a dose of Lasix today. Yesterday we place the exhalation on therapeutic doses of Lovenox, her d-dimer slightly improved, however still significantly elevated at 20.5 on today's labs, sodium is 148, potassium 3.8, chloride is 150, BUN is 41 creatinine 0.89. LDH today is 1654, and CRP is 14.1, patient remains on antibiotics for acute VRE urinary tract infection. Reevaluated today on 06/25/2021, patient remains on BiPAP, IPAP of 15 and EPAP of 5, FiO2 is 100%, patient is deteriorating. And she is desaturating down to the 70s at time. Patient does not seem to be making any significant improvement. Asked x-ray yesterday showed diffuse mixed interstitial process/diffuse pneumonia. Electrolytes today are normal except for elevated sodium of 147 renal profile showed a BUN of 48 creatinine 0.89. Her inflammatory markers have gone up LDH of 1654 and C-reactive protein is 14.1. Since all pointing to the fact that the patient is not doing too well. And I believe her clinical course is deteriorating in spite of of what has been done over the last 1 week. The patient is seen today 06/26/2021 in follow-up on the regular medical floor. She is currently resting in bed. She is arousable but otherwise unresponsive. She is on BiPAP 15/5 and 100% FiO2 maintaining O2 saturations in the mid 80s. Respiratory rate at 45. Tidal volume 450. She is being nourished with TPN at 65 ML's per hour. Currently afebrile. Slightly tachycardic. Urine culture positive for Jeimy and enterococcus fascia and VRE. She remains on antibiot ics in the form of daptomycin. Sodium 145. Potassium 4.8. BUN 61. Creatinine 1.27. Glucose 214. Albumin 2.2. She remains on Lovenox 90 mg subcu every 12 hours. Continued on Decadron and vitamin supplements. Objective - Vital Signs Vital signs: Vital Signs Temp 98.8 F 06/26/21 07:47 Pulse 110 H 06/26/21 07:47 Resp 45 H 06/26/21 07:47 BP 129/64 06/26/21 07:47 Pulse Ox 84 L 06/26/21 07:47 Intake & Output 06/25/21 06/26/21 06/26/21 18:59 06:59 18:59 Intake Total 819.5 Output Total 300 225 Balance -300 594.5 Intake: Intake, IV Titration 819.5 Amount Mvi, Adult No.4 with Vit 819.5 K 10 ml Trace (Conc-1Ml/ Dose) 1 ml Calcium Gluconate 1 gm Magnesium Sulfate gm 1 gm Potassium Phosphate 15 mmol In Amino Acid 5%-D15w 1,000 ml @ 30 mls/hr IV .Q24H COUNT INCLUDES THE [facility] Rx#:[id number] Output: Urine 300 225 Other: Voiding Method Indwelling Catheter Indwelling Catheter Indwelling Catheter - Exam GENERAL EXAM: 60-year-old female arousable but drifts off easily, on BiPAP 15/5 100% FiO2 HEAD: Normocephalic/atraumatic. EYES: Normal reaction of pupils, equal size. Conjunctiva pink, sclera white. NOSE: Clear with pink turbinates. THROAT: No erythema or exudates. NECK: No masses, no JVD, no thyroid enlargement, no adenopathy. CHEST: No chest wall deformity. Symmetrical expansion. LUNGS: Equal air entry with coarse crackles throughout CVS: Regular rate and rhythm, normal S1 and S2, no gallops, no murmurs, no rubs ABDOMEN: Soft, nontender. No hepatosplenomegaly, normal bowel sounds, no guarding or rigidity. EXTREMITIES: No clubbing, no edema, no cyanosis, 2+ pulses and upper and lower extremities. Left [id number] amputation, right great big toe amputation site clean dry and intact, sutures clean dry and intact, reich area on the back of her right calf, bleeding, does not appear to be infected, surrounding area is extremely flaky, and dry MUSCULOSKELETAL: Muscle strength and tone normal. CENTRAL NERVOUS SYSTEM: Alert and oriented -2. No focal deficits, tone is normal in all 4 extremities. PSYCHIATRIC: Could not assess. - Labs CBC & Chem 7: 06/23/21 07:34 06/26/21 06:18 Labs: Abnormal Lab Results - Last 24 Hours (Table) 06/25/21 06/25/21 06/25/21 Range/Units 12:00 12:40 20:24 Chloride (98-107) mmol/L BUN (7-17) mg/dL Creatinine (0.52-1.04) mg/dL Glucose (74-99) mg/dL POC Glucose (mg/dL) 69 L 72 L 106 H (75-99) mg/dL Calcium (8.4-10.2) mg/dL AST (14-36) U/L Total Protein (6.3-8.2) g/dL Albumin (3.5-5.0) g/dL 06/26/21 06/26/21 06/26/21 Range/Units 00:10 06:15 06:18 Chloride 113 H (98-107) mmol/L BUN 61 H (7-17) mg/dL Creatinine 1.27 H (0.52-1.04) mg/dL Glucose 214 H (74-99) mg/dL POC Glucose (mg/dL) 138 H 206 H (75-99) mg/dL Calcium 8.0 L (8.4-10.2) mg/dL AST 41 H (14-36) U/L Total Protein 5.7 L (6.3-8.2) g/dL Albumin 2.2 L (3.5-5.0) g/dL 06/26/21 Range/Units 11:44 Chloride (98-107) mmol/L BUN (7-17) mg/dL Creatinine (0.52-1.04) mg/dL Glucose (74-99) mg/dL POC Glucose (mg/dL) 251 H (75-99) mg/dL Calcium (8.4-10.2) mg/dL AST (14-36) U/L Total Protein (6.3-8.2) g/dL Albumin (3.5-5.0) g/dL Assessment and Plan Assessment: 1 Acute hypoxic respiratory failure related to acute COVID-19 pneumonia, currently on BiPAP 12/5 and 100% FiO2 to maintain O2 saturations in the mid 80s 2 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 Currently on daptomycin 3 Recent hospitalization for ESBL E. coli urinary tract infection 4 Recent right great big toe amputation for nonhealing wound on 05/21/2021 5 Recent history of right hydronephrosis with ureteral stent placement on 05/25/2021 6 Acute on chronic kidney disease 7 Valvular heart disease, with moderate MR, and moderate to severe tricuspid regurgitation, and severe pulmonary hypertension with right-sided pressure of 88.5 mmHg 8 Reported history of COPD, not oxygen dependent at baseline 9 Former smoker 10 Diabetes mellitus, with diabetic neuropathy 11 Chronic kidney disease stage III at baseline 12 Peripheral vascular disease with previous history of left [id number] amp utation 13 Nonhealing wound on the right lower leg posterior messer area, patient follows at the wound care center 14 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 Maxwell No significant improvement Continued on 100% FiO2 via the BiPAP 15/5 Prognosis remains poor Anticoagulated with Eliquis Remains on Decadron, vitamin supplements Continued on daptomycin We will continue to follow I, the cosigning physician, performed a history & physical examination of the patient. Lungs sounds crackles in the bilateral posterior bases. Maintaining O2 saturations in the 80s on 100% FiO2 via the BiPAP at 15/5. I discussed the assessment and plan of care with my nurse practitioner, Jennifer Villagomez. I attest to the above note as dictated by her.
[2021-06-26] MEDS ORDERED: 1: MVI, ADULT NO.4 WITH VIT K 10 ML, TRACE (CONC-1ML/DOSE) 1 ML, CALCIUM GLUCONATE 1 GM, IV SCH ×11 (15:00)
[2021-06-26 17:05] LABS: Glucose,Whole Blood 243 mg/dL (75-99)
--- NOTE | 2021-06-26 17:14 | P.PN ---
Progress Note - Text Progress Note Date: 06/26/21 Chief Complaint: Hypoxemia History of presenting complaint: This is a pleasant 60-year-old patient, visiting physicians Dr. Garcia. Chronic stable medical conditions include (above-knee amputation, chronic wound on the right lower extremity being followed by Dr. Scruggs from vascular, at the wound care center by Lauren, and also has home care. Chronic kidney disease stage III, diabetes mellitus type 2, hyperlipidemia, coronary artery disease with bypass, diabetic peripheral neuropathy, lower back pain from arthritis, uses a motorized wheelchair at baseline, severe secondary pulmonary hypertension, mitral and tricuspid regurgitation. May 10 discharged from the hospital , following debridement of the right lower extremity. Suggestion was made for amputation of the toe. Patient was seen at the wound care center on this . discharged from the hospital May 28. Patient had a acute UTI with right ureter hydronephrosis with positive blood cultures E. coli/ESBL. Underwent right big toe ray amputation by Dr. Scruggs. Also underwent stent placement to the right ureter on May [address] Van. Discharged on IV Invanz. Patient will now sent in from the [facility] for becoming hypoxic. Pulse ox was in low 90s on 6 L. Patient's diet. Decreased oral intake. Shortness of breath. Some cough. Patient was positive for COVID on May 13. Because of increasing oxygen requirement patient was sent in. Patient rather tired. Patient did eat her breakfast this morning. Easily tired Admitted with COVID-19 pneumonia, acute hypoxic respiratory failure, metabolic encephalopathy. Placed on IV Decadron. Also UTI. Acute kidney injury 06/18/2021: More awake today. Eating. Shortness of breath. Nasal cannula. On IV Decadron. Lovenox increased to therapeutic dose given the increased d-dimer. Also IV Ertapenem for UTI. IV fluids. 90% on 15 L high flow oxygen 06/19/2021: Declining bed. Tired. Eating about 25%. Tired. Short of breath. 15 L of oxygen. On IV steroids. IV ertapenem for the UTI. Tired. 06/20/2021: On BiPAP. 70%. Tired. Has not eaten today. Lethargic. June 21: On BiPAP. Short of breath. Diet. Unable to eat. Anxious. IV dexamethasone. IV ertapenem. 06/22/2021: Remains on BiPAP. Tired. Short of breath at rest. Not eating. I did talk to the patient that she should take it isn't sure. Spoke to the aide to assist with feeding. 06/23/2021: 1 BiPAP. Tired. Short of breath. Barely eating. TPN lipids have been ordered. Patient does have a PICC line. 06/24/2021: On BiPAP at 80%. IV Decadron. Tired. TPN started yesterday. Lovenox dose is being adjusted by pulmonary. 06/25/2021: Not doing well. Rather lethargic. On BiPAP 100%. Hypoxic. TPN lipids. Nursing did contact patient's caregiver about the poor prognosis. 06/26/2021: Remains lethargic. On BiPAP 100%. Telemetry responsive. Getting TPN lipids. Hypoxic. Discussed with Dr. Maxwell. Prognosis poor. Review of systems: Unable to obtain Active Medications Albuterol Sulfate (Albuterol Hfa Inhaler) 2 puff INHALATION RT-Q6H PRN PRN Reason: Shortness Of Breath Or Wheezing Albuterol Sulfate (Albuterol Hfa Inhaler) 2 puff INHALATION RT-Q4H [facility] Last Admin: 06/26/21 16:46 Dose: 2 puff Documented by: Alprazolam (Alprazolam 0.25 Mg Tab) 0.25 mg PO TID [facility] Last Admin: 06/26/21 15:06 Dose: Not Given Documented by: Ascorbic Acid (Ascorbic Acid 500 Mg Tab) 500 mg PO TID@0800,1200,1800 [facility] Last Admin: 06/26/21 16:15 Dose: Not Given Documented by: Calcium Carbonate (Calcium Carb-Vit D 500 Mg-5 Mcg Tab) 1 each PO DAILY@0800 [facility] Last Admin: 06/26/21 07:30 Dose: Not Given Documented by: Carvedilol (Carvedilol 3.125 Mg Tab) 3.125 mg PO BID [facility] Last Admin: 06/26/21 07:30 Dose: Not Given Documented by: Cholecalciferol (Cholecalciferol 10 Mcg (400 Iu) Tablet) 10 mcg PO DAILY [facility] Last Admin: 06/26/21 07:31 Dose: Not Given Documented by: Clopidogrel Bisulfate (Clopidogrel 75 Mg Tab) 75 mg PO DAILY@0800 [facility] Last Admin: 06/26/21 07:30 Dose: Not Given Documented by: Dexamethasone Sodium Phosphate (Dexamethasone Sod Phosphate 10 Mg/Ml 1 Ml Vial) 6 mg IV BID [facility] Last Admin: 06/26/21 07:38 Dose: 6 mg Documented by: Enoxaparin Sodium (Enoxaparin 100 Mg/Ml Syringe) 90 mg SQ Q12HR [facility] Last Admin: 06/26/21 07:38 Dose: 90 mg Documented by: Daptomycin 400 mg/ Sodium (Chloride) 50 mls @ 100 mls/hr IVPB Q24H [facility]; Protocol Last Admin: 06/25/21 20:01 Dose: 100 mls/hr Documented by: Dextrose/Water (Dextrose 5%-Water Iv Soln) 1,000 mls @ 50 mls/hr IV .Q20H [facility] Last Admin: 06/26/21 03:01 Dose: Not Given Documented by: Fat Emulsion Intravenous 250 (ml/ IV Solution) 250 mls @ 21 mls/hr IV DAILY@1800 [facility] Last Admin: 06/25/21 18:19 Dose: 21 mls/hr Documented by: Parenteral Vitamin Supplement 10 ml/ Zinc/Copper/Manganese/Selenium 1 ml/ Gonzalo cium Gluconate 1 gm/ Magnesium Sulfate 0.5 gm/ Potassium Phosphate 6 mmol/ Amino Acids/Dextrose 1,024 mls @ 65 mls/hr IV .BY DURATION [facility] Calcium Gluconate 1 gm/Magnesium Sulfate 0.5 gm/Potassium Phosphate 6 mmol/Amino Acids/Dextrose 1,013 mls @ 65 mls/hr IV .BY DURATION [facility] Insulin Aspart (Insulin Aspart (Novolog) 100 Unit/Ml Vial) 0 unit SQ [facility]; Protocol Last Admin: 06/26/21 11:58 Dose: 8 unit Documented by: Insulin Detemir (Insulin Detemir (Levemir) 100 Unit/Ml Syr) 12 unit SQ HS [facility] Last Admin: 06/25/21 22:53 Dose: Not Given Documented by: Loperamide HCl (Loperamide 2 Mg Cap) 2 mg PO Q6H PRN PRN Reason: Diarrhea Lorazepam (Lorazepam 2 Mg/Ml Inj) 0.5 mg IV Q6HR PRN PRN Reason: Anxiety Last Admin: 06/26/21 07:41 Dose: 0.5 mg Documented by: Multivitamins (Multivitamins, Thera 1 Each Tab) 1 each PO DAILY [facility] Last Admin: 06/26/21 07:31 Dose: Not Given Documented by: Naloxone HCl (Naloxone 0.4 Mg/Ml 1 Ml Vial) 0.2 mg IV Q2M PRN PRN Reason: Opioid Reversal Ondansetron HCl (Ondansetron 4 Mg Tab) 4 mg PO Q6H PRN PRN Reason: Nausea And Vomiting Last Admin: 06/23/21 09:42 Dose: 4 mg Documented by: Sodium Bicarbonate (Sodium Bicarbonate Tab 650 Mg Tab) 650 mg PO TID@0000,0800,1600 [facility] Last Admin: 06/26/21 15:06 Dose: Not Given Documented by: Tiotropium [place] (Tiotropium 2.5 Mcg Inhaler) 2 puff INHALATION RT-DAILY [facility] Last Admin: 06/26/21 08:34 Dose: Not Given Documented by: Tramadol/Acetaminophen (Tramadol-Acetaminop 37.5-325mg 1 Each Tab) 1 each PO Q8H PRN PRN Reason: Pain Last Admin: 06/24/21 19:51 Dose: 1 each Documented by: Zinc Sulfate (Zinc Sulfate 220 Mg Cap) 220 mg PO DAILY [facility] Last Admin: 06/26/21 07:31 Dose: Not Given Documented by: Past medical history to include: Left above-knee amputation, right big toe surgery amputation chronic kidney disease stage III, diabetes mellitus, hyperlipidemia, coronary artery disease with bypass, diabetic peripheral neuropathy, lower back pain from arthritis, GERD venous stasis ulcers, peripheral neuropathy, Social history: At [facility] currently. Motorized wheelchair. Home care. She was drinking heavily of April 1991. Smoking up to 3 packs a day up to 2011. Family history: Diabetes, [place], and resume, stroke Physical examination: VITAL SIGNS: 98.5, 110, 42, 123.45, 84% on BiPAP [100% post-bracket GENERAL: reclining bed, lethargic, short of breath LUNGS: Respiratory rate increased, bilateral crackles PSYCH: Unable to assess EXTREMITIES: Left above-knee amputation. Right lower foot ray amputation with dressing, Rest of the exam per pulmonary and nursing Investigations: June 26: Potassium 4.8 BUN 61 and 1.27 June 25: Sodium 147 creatinine 0.89 June 24: Sodium 148 potassium 3.9 creatinine 0.89 CRP 14.1 d-dimer 20.5. Chest x-ray diffuse infiltrates June 23: White count 14.2 hemoglobin 10.1 d-dimer 23.41 June 21: D-dimer 2.99 potassium 5 BUN 53 creatinine 1.21 CRP 2.2 Urine culture: Enterococcus faecium, VRE, Jeimy June 20: Potassium 5 BUN 57 creatinine 1.47 June 19: White count 4.8 hemoglobin 8.4 platelets 133 potassium 4.9 BUN 59 creatinine 1.8 to d-dimer 0.9 to CRP 3.2 06/18/2021: WBC 2.1 hemoglobin 8.5 platelets 104 potassium 4.9 BUN 56 creatinine 2.49 pro-calcitonin 0.63 d-dimer 1.24 WBC 3.5 hemoglobin 8.4 platelets 118 potassium 4.5 BUN 51 and creatinine 2.55 EKG tracing personally reviewed by me: Sinus rhythm, rate 81 nonspecific T-wave changes Chest x-ray film personally reviewed by me: Bilateral infiltrates Previous testin-D echocardiogram: Moderate concentric LVH. EF 45-50%. Moderate to severe tricuspid regurgitation. Severe pulmonary hypertension. 05/27/2021: BUN 29 creatinine 1.11 platelets 26 hemoglobin 10.6 Assessment and plan: -Severe COVID-19 pneumonia: Not improving Dexamethasone 6 mg increased to twice a day. Subcu Lovenox-per pulmonary. Vitamin C vitamin D zinc. -Acute hypoxic respiratory failure from COVID-19 pneumonia: Not improving On BiPAP at 100% -Acute metabolic encephalopathy from pneumonia: Worsening Follow clinically - Ray amputation of infected right big toe on May [address] Scruggs. Recently completed a course of IV Invanz. Continue wound care -Acute UTI with cystitis in a patient with recent Acute right hydronephrosis and hydroureter from right ureter stone,: right ureter stent by Dr. Van - May 25. Completed course of IV Invanz VRE. IV Ertapenem-changed to IV daptomycin -Chronic kidney disease stage III from diabetic nephropathy and nephrosclerosis Follow renal function -Acute kidney injury, likely ATN from sepsis and decreased oral intake: Improved IV fluids. Creatinine 2.55 on presentation. 0.86 -Symptomatic Anemia of chronic kidney disease Follow H&H -Obesity BMI 34.3 Weight loss measures. Follow-up with PCP -Diabetes mellitus type 2 , diet-controlled Follow Accu-Cheks -Coronary artery disease with prior history of bypass Aspirin, Coreg, Plavix -Diabetic peripheral neuropathy -Chronic low back pain from arthritis Tylenol as needed -Chronic medical debility Uses a motorized wheelchair -Secondary severe pulmonary hypertension Follow clinically -Moderate mitral and moderate to severe tricuspid regurgitation Follow clinically -Bilateral renal calculi, asymptomatic -Asymptomatic choledocholithiasis -TPN and lipids for nutrition Not improving. On 100% BiPAP. TPN and lipids. Dexamethasone. Discussed with Dr. Maxwell. Prognosis poor.
[2021-06-26] MEDS: FAT EMULSION 20% 250 ML in EMPTY BAG 1 BAG IV SCH (17:15)
[2021-06-26 20:39] LABS: Glucose,Whole Blood 263 mg/dL (75-99)
[2021-06-26] MEDS: INSULIN DETEMIR (LEVEMIR) 100 UNIT/ML SYR SQ SCH (21:08)
[2021-06-27 00:06] LABS: Glucose,Whole Blood 262 mg/dL (75-99)
[2021-06-27] MEDS: SODIUM BICARBONATE TAB 650 MG TAB PO SCH ×2 (00:10→07:37)
[2021-06-27] MEDS: ALBUTEROL HFA INHALER INHALATION SCH ×2 (04:17→08:35)
[2021-06-27 06:09] LABS: Glucose,Whole Blood 303 mg/dL (75-99)
[2021-06-27] MEDS: INSULIN ASPART (NovoLOG) 100 UNIT/ML VIAL SQ SCH (06:22)
[2021-06-27] MEDS: carvediloL 3.125 MG TAB PO SCH (07:37)
[2021-06-27] MEDS: CALCIUM CARB-VIT D 500 MG-5 MCG TAB PO SCH (07:37)
[2021-06-27] MEDS: ASCORBIC ACID 500 MG TAB PO SCH (07:37)
[2021-06-27] MEDS: CLOPIDOGREL 75 MG TAB PO SCH (07:37)
[2021-06-27] MEDS: ALPRAZolam 0.25 MG TAB PO SCH (07:37)
[2021-06-27] MEDS: ZINC SULFATE 220 MG CAP PO SCH (07:38)
[2021-06-27] MEDS: MULTIVITAMINS, THERA 1 EACH TAB PO SCH (07:38)
[2021-06-27] MEDS: CHOLECALCIFEROL 10 MCG (400 IU) TABLET PO SCH (07:38)
[2021-06-27 07:44] VITALS: TEMP 98.7
[2021-06-27 07:53] VITALS: BP 77/41; PULSE 134; RESP 50
[2021-06-27] MEDS: LORazepam 2 MG/ML INJ IV PRN (08:08)
[2021-06-27] MEDS: ENOXAPARIN 100 MG/ML SYRINGE SQ SCH (08:08)
[2021-06-27] MEDS: DEXAMETHASONE SOD PHOSPHATE 10 MG/ML 1 ML VIAL IV SCH (08:09)
[2021-06-27] MEDS: TIOTROPIUM 2.5 MCG INHALER INHALATION SCH (08:35)
--- NOTE | 2021-06-27 18:17 | P.DS ---
Providers Date of admission: 06/17/21 06:04 Expected date of discharge: 06/27/21 Attending physician: Bobby Quinones Consults: 06/17/21 06:04 Consult Physician Routine Consulting Provider: Navneet Zaman Consult Reason/Comments: icu Do you want consulting provider notified?: Yes 06/17/21 10:36 Consult Physician Routine Consulting Provider: Donavan Gibbs Consult Reason/Comments: covid-19 Do you want consulting provider notified?: Yes Primary care physician: Jason Garcia MD Hospital Course: Chief Complaint: Hypoxemia History of presenting complaint: This is a pleasant 60-year-old patient, visiting physicians Dr. Garcia. Chronic stable medical conditions include (above-knee amputation, chronic wound on the right lower extremity being followed by Dr. Scruggs from vascular, at the wound care center by Lauren, and also has home care. Chronic kidney disease stage III, diabetes mellitus type 2, hyperlipidemia, coronary artery disease with bypass, diabetic peripheral neuropathy, lower back pain from arthritis, uses a motorized wheelchair at baseline, severe secondary pulmonary hypertension, mitral and tricuspid regurgitation. May 10 discharged from the hospital , following debridement of the right lower extremity. Suggestion was made for amputation of the toe. Patient was seen at the wound care center on this . discharged from the hospital May 28. Patient had a acute UTI with right ureter hydronephrosis with positive blood cultures E. coli/ESBL. Underwent right big toe ray amputation by Dr. Scruggs. Also underwent stent placement to the right ureter on May [address] Van. Discharged on IV Invanz. Patient will now sent in from the F for becoming hypoxic. Pulse ox was in low 90s on 6 L. Patient's diet. Decreased oral intake. Shortness of breath. Some cough. Patient was positive for COVID on May 13. Because of increasing oxygen requirement patient was sent in. Patient rather tired. Patient did eat her breakfast this morning. Easily tired Admitted with COVID-19 pneumonia, acute hypoxic respiratory failure, metabolic encephalopathy. Placed on IV Decadron. Also UTI. Acute kidney injury 06/18/2021: More awake today. Eating. Shortness of breath. Nasal cannula. On IV Decadron. Lovenox increased to therapeutic dose given the increased d-dimer. Also IV Ertapenem for UTI. IV fluids. 90% on L high flow oxygen 06/19/2021: Declining bed. Tired. Eating about 25%. Tired. Short of breath. 15 L of oxygen. On IV steroids. IV ertapenem for the UTI. Tired. 06/20/2021: On BiPAP. 70%. Tired. Has not eaten today. Lethargic. June 21: On BiPAP. Short of breath. Diet. Unable to eat. Anxious. IV dexamethasone. IV ertapenem. 06/22/2021: Remains on BiPAP. Tired. Short of breath at rest. Not eating. I did talk to the patient that she should take it isn't sure. Spoke to the aide to assist with feeding. 06/23/2021: 1 BiPAP. Tired. Short of breath. Barely eating. TPN lipids have been ordered. Patient does have a PICC line. 06/24/2021: On BiPAP at 80%. IV Decadron. Tired. TPN started yesterday. Lovenox dose is being adjusted by pulmonary. 06/25/2021: Not doing well. Rather lethargic. On BiPAP 100%. Hypoxic. TPN lipids. Nursing did contact patient's caregiver about the poor prognosis. 06/26/2021: Remains lethargic. On BiPAP 100%. Telemetry responsive. Getting TPN lipids. Hypoxic. Discussed with Dr. Maxwell. Prognosis poor. 06/27/2021: Patient had continued to decline. Eventually succumbed to underlying condition. Patient Consultation: Dr. Maxwell from pulmonary Dr. Gibbs from [facility] care team Past medical history to include: Left above-knee amputation, right big toe surgery amputation chronic kidney disease stage III, diabetes mellitus, hyperlipidemia, coronary artery disease with bypass, diabetic peripheral neuropathy, lower back pain from arthritis, GERD venous stasis ulcers, peripheral neuropathy, Social history: At [facility] currently. Motorized wheelchair. Home care. She was drinking heavily of April 1991. Smoking up to 3 packs a day up to 2011. Family history: Diabetes, [place], and resume, stroke Investigations: June 26: Potassium 4.8 BUN 61 and 1.27 June 25: Sodium 147 creatinine 0.89 June 24: Sodium 148 potassium 3.9 creatinine 0.89 CRP 14.1 d-dimer 20.5. Chest x-ray diffuse infiltrates June 23: White count 14.2 hemoglobin 10.1 d-dimer 23.41 June 21: D-dimer 2.99 potassium 5 BUN 53 creatinine 1.21 CRP 2.2 Urine culture: Enterococcus faecium, VRE, Jeimy June 20: Potassium 5 BUN 57 creatinine 1.47 June 19: White count 4.8 hemoglobin 8.4 platelets 133 potassium 4.9 BUN 59 creatinine 1.8 to d-dimer 0.9 to CRP 3.2 06/18/2021: WBC 2.1 hemoglobin 8.5 platelets 104 potassium 4.9 BUN 56 creatinine 2.49 pro-calcitonin 0.63 d-dimer 1.24 WBC 3.5 hemoglobin 8.4 platelets 118 potassium 4.5 BUN 51 and creatinine 2.55 EKG tracing personally reviewed by me: Sinus rhythm, rate 81 nonspecific T-wave changes Chest x-ray film personally reviewed by me: Bilateral infiltrates Previous testin-D echocardiogram: Moderate concentric LVH. EF 45-50%. Moderate to severe tricuspid regurgitation. Severe pulmonary hypertension. 05/27/2021: BUN 29 creatinine 1.11 platelets 26 hemoglobin 10.6 Cause of : COVID-19 pneumonitis Assessment : -Severe COVID-19 pneumonia: -Acute hypoxic respiratory failure from COVID-19 pneumonia: -Acute metabolic encephalopathy from pneumonia: - Ray amputation of infected right big toe on May [address] Scruggs. -Acute UTI with cystitis in a patient with recent Acute right hydronephrosis and hydroureter from right ureter stone,: right ureter stent by Dr. Van -May 25. Completed course of IV Invanz VRE. IV Ertapenem-changed to IV daptomycin -Chronic kidney disease stage III from diabetic nephropathy and nephrosclerosis -Acute kidney injury, likely ATN from sepsis and decreased oral intake: Improved IV fluids. Creatinine 2.55 on presentation. 0.86 -Symptomatic Anemia of chronic kidney disease -Obesity BMI 34.3 -Diabetes mellitus type 2 , diet-controlled -Coronary artery disease with prior history of bypass Aspirin, Coreg, Plavix -Diabetic peripheral neuropathy -Chronic low back pain from arthritis -Chronic medical debility Uses a motorized wheelchair -Secondary severe pulmonary hypertension -Moderate mitral and moderate to severe tricuspid regurgitation -Bilateral renal calculi, asymptomatic -Asymptomatic choledocholithiasis Disposition: Patient Plan - Discharge Summary Discharge Rx Participant: No New Discharge Prescriptions: Discontinued Clopidogrel [Plavix] 75 mg PO DAILY@0800 Gabapentin [Neurontin] 300 mg PO HS #3 capsule Loperamide [Imodium] 2 mg PO Q6H PRN PRN Reason: Diarrhea Pantoprazole Sodium 40 mg PO DAILY@0600 traMADol-ACETAMINOP 37.5-325MG [Ultracet] 1 tab PO Q8H PRN PRN Reason: Pain Ascorbic Acid [Vitamin C] 500 mg PO TID@0800,1200,1800 carvediloL [Coreg] 3.125 mg PO BID Multivitamin with Iron [Multivitamins with Iron] 1 tab PO DAILY Ondansetron HCl [Zofran] 4 mg PO Q6H PRN PRN Reason: Nausea And Vomiting Sodium Bicarbonate Tab 650 mg PO TID@0000,0800,1600 Calcium Carbonate/Vitamin D3 [Calcium 600 mg-Vit D3 5 mcg (200 unit)] 1 tab PO DAILY@0800 Discharge Disposition: - Preliminary Cause of Preliminary Cause of : COVID-19 pneumonitis
== END 2021-06-27 10:58 | disposition expired | DRG 871 ==
LOC: EC 02:33 → 3SCARD 06:04
PROVIDERS: ADMIT Hospitalist; ATTEND Hospitalist
DX: A41.89 Other specified sepsis (principal); U07.1 COVID-19; G93.41 Metabolic encephalopathy; N17.0 Acute kidney failure with tubular necrosis; J96.01 Acute respiratory failure with hypoxia; J12.82 Pneumonia due to coronavirus disease 2019; R65.21 Severe sepsis with septic shock; I50.21 Acute systolic (congestive) heart failure; J44.0 Chronic obstructive pulmonary disease with (acute) lower respiratory infection; I13.0 Hypertensive heart and chronic kidney disease with heart failure and stage 1 through stage 4 chronic kidney disease, or unspecified chronic kidney disease; L97.913 Non-pressure chronic ulcer of unspecified part of right lower leg with necrosis of muscle; Z16.21 Resistance to vancomycin; Z16.24 Resistance to multiple antibiotics; N13.6 Pyonephrosis; Z16.12 Extended spectrum beta lactamase (ESBL) resistance; I27.29 Other secondary pulmonary hypertension; E11.42 Type 2 diabetes mellitus with diabetic polyneuropathy; E11.51 Type 2 diabetes mellitus with diabetic peripheral angiopathy without gangrene; E11.621 Type 2 diabetes mellitus with foot ulcer; E11.622 Type 2 diabetes mellitus with other skin ulcer; N18.30 Chronic kidney disease, stage 3 unspecified; L97.509 Non-pressure chronic ulcer of other part of unspecified foot with unspecified severity; Z89.612 Acquired absence of left leg above knee; L89.612 Pressure ulcer of right heel, stage 2; E11.22 Type 2 diabetes mellitus with diabetic chronic kidney disease; G89.29 Other chronic pain; Z79.4 Long term (current) use of insulin; I83.008 Varicose veins of unspecified lower extremity with ulcer other part of lower leg; M19.90 Unspecified osteoarthritis, unspecified site; M06.9 Rheumatoid arthritis, unspecified; E66.09 Other obesity due to excess calories; E78.5 Hyperlipidemia, unspecified; F17.210 Nicotine dependence, cigarettes, uncomplicated; I08.1 Rheumatic disorders of both mitral and tricuspid valves; K80.50 Calculus of bile duct without cholangitis or cholecystitis without obstruction; D63.1 Anemia in chronic kidney disease; I25.10 Atherosclerotic heart disease of native coronary artery without angina pectoris; M54.9 Dorsalgia, unspecified; K21.9 Gastro-esophageal reflux disease without esophagitis; G62.9 Polyneuropathy, unspecified; F41.9 Anxiety disorder, unspecified; B95.2 Enterococcus as the cause of diseases classified elsewhere; L97.512 Non-pressure chronic ulcer of other part of right foot with fat layer exposed; E11.65 Type 2 diabetes mellitus with hyperglycemia; I83.891 Varicose veins of right lower extremity with other complications; R06.9 Unspecified abnormalities of breathing; Z95.1 Presence of aortocoronary bypass graft; I25.2 Old myocardial infarction; Z87.442 Personal history of urinary calculi; Z86.19 Personal history of other infectious and parasitic diseases; Z83.3 Family history of diabetes mellitus; Z82.49 Family history of ischemic heart disease and other diseases of the circulatory system; Z82.3 Family history of stroke; Z79.899 Other long term (current) drug therapy; Z79.02 Long term (current) use of antithrombotics/antiplatelets; Z79.01 Long term (current) use of anticoagulants; Z74.01 Bed confinement status; Z68.34 Body mass index [BMI] 34.0-34.9, adult
CPT/HCPCS: 36415; 71045; 80048; 80053; 81001; 82330; 83605; 83615; 83690; 83735; 83880; 84100; 84145; 84478; 84484; 85025; 85379; 85610; 85730; 86140; 87040; 87077; 87086; 87186; 93005; 94640; 94660; 94760; 96361; 96374; 96375; 99291